=== PATIENT | female | born 1935 | race Caucasian/White ===

== ENCOUNTER 2022-08-03 01:31 | Emergency (ER) | payer MEDICARE, MEDICAID, SELFPAY ==
[2022-08-03] VITALS (16 sets, daily range): BP systolic 100–150; BP diastolic 65–119; PULSE 119–126; TEMP 35.5; O2SAT 73–95
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
--- NOTE | 2022-08-03 01:35 | CRLHL7_ITS ---
For Patients: As a result of the Century Cures Act, medical imaging exams and procedure reports are released immediately into your electronic medical record. You may view this report before your referring provider. If you have questions, please contact your health care provider. Indication: Dyspnea Technique: Chest 1 view Comparison: July 06, 2022 Findings/Impression: Cardiomegaly. Increased patchy opacities lungs may reflect edema or infection. No pneumothorax or effusion. Status post reverse right shoulder arthroplasty. Dictated by Alisa Sloan MD @ 08/03/2022 2:41:13 AM (Electronically Signed)
[2022-08-03] MEDS: FUROSEMIDE 10 MG/ML inj 40 MG IVP (01:51)
[2022-08-03] MEDS: METHYLPREDNISOLONE SOD SUCC 40 MG/ML IVP (01:57)
[2022-08-03 01:58] LABS: ABG PCO2 28 mmHG (35-45); Base Excess ABG -20.7 mmol/L (-3.0-3.0); HCO3 ABG 8 mmol/L (21-28); Oxygen Saturation ABG 94 % (92-100); TCO2 ABG 8 mmol/l (21-30)
[2022-08-03 02:02] LABS: Basophils Percent Auto 0.4 % (0.0-3.0); Eosinophils Percent Auto 2.8 % (0.0-7.0); Hematocrit 35.2 % (33.0-51.0); Hemoglobin* 10.5 gm/dL (12.0-16.0); Immature Granulocytes Pct Auto 2.2 %; Mean Corpuscular HGB Conc 30 gm/dL (32-36); Mean Corpuscular Hemoglobin 27 pg (26-34); Mean Corpuscular Volume 91 fL (80-100); Monocytes Percent Auto 12.5 % (0.0-11.0); Neutrophils Percent Auto 39.1 % (42.0-72.0); Platelet Count* 552 K/uL (140-440); RDW Coefficient of Variation % 22.6 % (11.5-15.5); Red Blood Count 3.88 m/uL (4.00-5.20); White Blood Count* 14.17 K/uL (4.50-11.00)
[2022-08-03 02:05] LABS: Slide Review Reflex Yes
[2022-08-03 02:13] LABS: Slide Review Acceptable Review (Acceptable)
[2022-08-03 02:15] LABS: pH ABG 7.07 (7.35-7.45)
[2022-08-03 02:16] LABS: Albumin* 3.7 g/dL (3.3-5.0); Chloride* 99 mmol/L (96-114); Sodium* 133 mmol/L (135-149)
[2022-08-03 02:16] LABS: Carboxyhemoglobin* 1.5 % (0.0-5.0); Lactate* 11.7 mmol/L (0.5-1.9)
[2022-08-03 02:18] LABS: Estimated Glomerular Filt Rate 55 ml/min
[2022-08-03 02:19] LABS: Alanine Aminotransferase* 29 U/L (4-35); Alkaline Phosphatase* 56 U/L (40-150); Aspartate Amino Transferase* 128 U/L (12-35); Bilirubin Total* 0.4 mg/dL (0.1-1.5); Blood Urea Nitrogen* 10 mg/dL (7-30); Calcium* 8.9 mg/dL (8.4-10.6); Carbon Dioxide* 11 mmol/L (20-32); Glucose* 349 mg/dL (60-115); Total Protein* 6.7 g/dL (6.0-8.3)
[2022-08-03 02:20] LABS: Magnesium* 1.5 mg/dL (1.5-2.6)
[2022-08-03 02:33] LABS: NT Pro B Type NatriureticPept* 8130 pg/mL
--- NOTE | 2022-08-03 02:34 | PC.NURSE ---
3 RT staff called for MD for RT support.
[2022-08-03] MEDS: cefTRIAXone 1 GM in 0.9 % SODIUM CHLORIDE Mini-bag 100 ML IVPB (02:36)
[2022-08-03] MEDS: OXYCODONE 5 MG TABLET PO (02:37)
[2022-08-03] MEDS: AZITHROMYCIN 500 MG in 0.9 % SODIUM CHLORIDE 250 ml 250 ML 255 MG IVPB (03:05)
[2022-08-03] MEDS: ALBUTEROL SULFATE 2.5 MG/3 ML VIAL.NEB NEB (03:09)
--- NOTE | 2022-08-03 03:15 | ED.NURSE ---
patient extremely uncomfortable. Unable to get into a comfortable position. Patient trying to climb out of bed. MD case notified.
[2022-08-03 03:23] LABS: Troponin, Point-of-Care* 0.07 ng/ml (0.01-0.04)
--- NOTE | 2022-08-03 03:37 | ED.NURSE ---
at 0325 patient started to have decreased respiratory drive. Patients respirations went from 55 breaths/minute to 18 breaths/min. Patients HR also went from 123 to 40. MD Jacobson notified. Family called to come in by marine oil terminal superintendent care staff.
--- NOTE | 2022-08-03 04:45 | ED.NURSE ---
Patients son Isreal and his arrived at bedside at 0445.
--- NOTE | 2022-08-03 05:00 | ED.NURSE ---
Patients son Isreal Elkins. His phone number is [phone]. Jennifer address is [address] [place], [place] [id number]. He states that he would like his mother to go to [facility] in [place].
--- NOTE | 2022-08-03 05:39 | ED.NURSE ---
Patients belongings: -Yancey in color letitia bethea shirt -Jewlery: *2 rings silver in color with stones. one ring silver in color that has a flower on top. *2 necklaces silver in color (one was a pendent with a quote about being a mother, other was a cross necklace) these items were given to daughter in law and son Isreal at [phone]
--- NOTE | 2022-08-03 05:52 | ED.NURSE ---
[facility] Contacted at 0523. They are contacting the coordinator and will call back with updated time for pickup.
== END 2022-08-03 07:44 | disposition expired ==
PROVIDERS: Emergency Provider Family Medicine; PCP Family Medicine
DX: I50.9 Heart failure, unspecified (principal)
CPT/HCPCS: 36415; 36600; 71045; 80053; 81001; 82803; 83605; 83735; 83880; 84484; 85025; 87040; 93005; 94640; 96365; 96375; 99285; 99291; 99292; A9270; J0456; J0696; J1940; J2920; J7050

== ENCOUNTER → 2022-08-03 03:32 | Inpatient (IN) | payer MEDICAID, MEDICARE, SELFPAY ==
[2021-08-16] MEDS: OMEPRAZOLE 20 MG CAPSULE DR PO (06:44)
[2021-08-16] MEDS: ALBUTEROL INHALER 2 PUFF IH ×4 (07:14→20:08)
[2021-08-16] MEDS: ACETAMINOPHEN 500 MG TABLET 1000 MG PO ×3 (07:14→20:08)
[2021-08-16] MEDS: ASPIRIN 81 MG TABLET EC PO (07:14)
[2021-08-16] MEDS: VENLAFAXINE ER 75 MG CAPSULE PO (07:15)
[2021-08-16] MEDS: CARBOXYMETHYLCELLULOSE (REFRESH PLUS) TEARS 1 DROP EYE-BOTH ×4 (07:16→20:09)
[2021-08-16] MEDS: METOPROLOL SUCCINATE (XL) 50 MG TAB PO (07:16)
[2021-08-16] MEDS: OCUVITE TABLET 2 TAB PO ×2 (07:16→16:19)
[2021-08-16] MEDS: FOLIC ACID 800 MCG 1 EACH PO (07:16)
[2021-08-16] MEDS: VENLAFAXINE HCL ER 37.5 MG CAPSULE PO (07:16)
[2021-08-16] MEDS: FUROSEMIDE 40 MG TABLET 60 MG PO (08:42)
[2021-08-16] MEDS: METFORMIN 1,000 MG TABLET 1000 MG PO ×2 (08:42→17:24)
[2021-08-16] MEDS: POTASSIUM CHLORIDE 10 MEQ CAPSULE ER PO (08:42)
--- NOTE | 2021-08-16 10:59 | NUTR.NU ---
Nutrition Follow-Up: RDN monitoring resident at high-risk due to past weight loss. Current weight 99.7 lbs; Weight history 08/11/21 100 lbs; 08/04/21 100 lbs; 07/28/21 103 lbs; 07/21/21 99.7 lbs; 07/14/21 102 lbs; 07/07/21 103 lbs. Resident's weight has been stable within the past 30 days - no significant change noted. Current BMI is normal at 19.5 kg/m2. Current diet is regular per MD order. No current meal intakes recorded - RDN unable to assess. Resident is receiving Diabetic friendly snacks TID (1000, 1500, 1900 which provides ~450-600 kcals and ~18-24 grams protein daily. Snack record intakes are incomplete, however the snack intakes are mainly 100% that are recorded. With stable weight, RDN will no longer follow resident at high-risk. Will continue to monitor weight monthly and follow-up prn.
[2021-08-16] MEDS: NICOTINE 4 MG GUM BUCCAL (17:27)
[2021-08-16 18:22] VITALS: TEMP 36.2; O2SAT 92
[2021-08-16] MEDS: ATORVASTATIN 10 MG TABLET PO (20:08)
[2021-08-16] MEDS: SENNOSIDES 1 TAB TABLET PO (20:09)
[2021-08-16] MEDS: TRAZODONE HCL 50 MG TABLET PO (20:09)
[2021-08-17] MEDS: ACETAMINOPHEN 500 MG TABLET 1000 MG PO ×3 (07:03→20:14)
[2021-08-17] MEDS: ALBUTEROL INHALER 2 PUFF IH ×4 (07:03→20:14)
[2021-08-17] MEDS: OMEPRAZOLE 20 MG CAPSULE DR PO (07:03)
[2021-08-17] MEDS: ASPIRIN 81 MG TABLET EC PO (07:03)
[2021-08-17] MEDS: FOLIC ACID 800 MCG 1 EACH PO (07:04)
[2021-08-17] MEDS: VENLAFAXINE HCL ER 37.5 MG CAPSULE PO (07:04)
[2021-08-17] MEDS: METOPROLOL SUCCINATE (XL) 50 MG TAB PO (07:04)
[2021-08-17] MEDS: VENLAFAXINE ER 75 MG CAPSULE PO (07:04)
[2021-08-17] MEDS: NICOTINE 4 MG GUM BUCCAL ×2 (07:05→17:09)
[2021-08-17] MEDS: CARBOXYMETHYLCELLULOSE (REFRESH PLUS) TEARS 1 DROP EYE-BOTH ×4 (07:05→20:14)
[2021-08-17] MEDS: OCUVITE TABLET 2 TAB PO ×2 (07:05→16:30)
[2021-08-17] MEDS: METFORMIN 1,000 MG TABLET 1000 MG PO ×2 (08:26→17:09)
[2021-08-17] MEDS: POTASSIUM CHLORIDE 10 MEQ CAPSULE ER PO (08:26)
[2021-08-17] MEDS: FUROSEMIDE 40 MG TABLET 60 MG PO (08:26)
[2021-08-17 13:20] VITALS: BP 143/64; PULSE 88; RESP 20; TEMP 36.4
[2021-08-17 18:35] VITALS: TEMP 36.4; O2SAT 95
[2021-08-17] MEDS: ATORVASTATIN 10 MG TABLET PO (20:14)
[2021-08-17] MEDS: TRAZODONE HCL 50 MG TABLET PO (20:15)
[2021-08-17] MEDS: SENNOSIDES 1 TAB TABLET PO (20:15)
[2021-08-18] MEDS: OMEPRAZOLE 20 MG CAPSULE DR PO (07:10)
[2021-08-18] MEDS: ALBUTEROL INHALER 2 PUFF IH ×4 (07:10→19:37)
[2021-08-18] MEDS: ACETAMINOPHEN 500 MG TABLET 1000 MG PO ×3 (07:10→19:37)
[2021-08-18] MEDS: ASPIRIN 81 MG TABLET EC PO (07:10)
[2021-08-18] MEDS: VENLAFAXINE ER 75 MG CAPSULE PO (07:11)
[2021-08-18] MEDS: VENLAFAXINE HCL ER 37.5 MG CAPSULE PO (07:11)
[2021-08-18] MEDS: METOPROLOL SUCCINATE (XL) 50 MG TAB PO (07:11)
[2021-08-18] MEDS: FOLIC ACID 800 MCG 1 EACH PO (07:12)
[2021-08-18] MEDS: CARBOXYMETHYLCELLULOSE (REFRESH PLUS) TEARS 1 DROP EYE-BOTH ×4 (07:12→19:36)
[2021-08-18] MEDS: OCUVITE TABLET 2 TAB PO ×2 (07:12→16:38)
[2021-08-18] MEDS: FUROSEMIDE 40 MG TABLET 60 MG PO (08:40)
[2021-08-18] MEDS: METFORMIN 1,000 MG TABLET 1000 MG PO ×2 (08:40→17:13)
[2021-08-18] MEDS: POTASSIUM CHLORIDE 10 MEQ CAPSULE ER PO (08:40)
[2021-08-18] MEDS: NICOTINE 4 MG GUM BUCCAL ×2 (10:49→17:14)
--- NOTE | 2021-08-18 11:49 | PC.PHA ---
Pharmacy Note ~ Patient continues on polypharmacy. Enbrel injections have been working for patient. Hyperglycemia is most problematic in past month, but patient now managing with metformin and glucerna. Pain medications include scheduled acetaminophen 1000 mg tid and prn oxycodone. Use of prn oxycodone up by 5 doses in July compared to June.
[2021-08-18] MEDS: ATORVASTATIN 10 MG TABLET PO (19:37)
[2021-08-18] MEDS: SENNOSIDES 1 TAB TABLET PO (19:37)
[2021-08-18] MEDS: TRAZODONE HCL 50 MG TABLET PO (19:38)
[2021-08-18 20:54] VITALS: TEMP 36.3; O2SAT 96
[2021-08-19] MEDS: OMEPRAZOLE 20 MG CAPSULE DR PO (07:00)
[2021-08-19] MEDS: ASPIRIN 81 MG TABLET EC PO (07:10)
[2021-08-19] MEDS: ALBUTEROL INHALER 2 PUFF IH ×4 (07:10→19:36)
[2021-08-19] MEDS: ACETAMINOPHEN 500 MG TABLET 1000 MG PO ×3 (07:10→19:36)
[2021-08-19] MEDS: VENLAFAXINE ER 75 MG CAPSULE PO (07:10)
[2021-08-19] MEDS: VENLAFAXINE HCL ER 37.5 MG CAPSULE PO (07:10)
[2021-08-19] MEDS: METOPROLOL SUCCINATE (XL) 50 MG TAB PO (07:11)
[2021-08-19] MEDS: CARBOXYMETHYLCELLULOSE (REFRESH PLUS) TEARS 1 DROP EYE-BOTH ×4 (07:11→19:36)
[2021-08-19] MEDS: OCUVITE TABLET 2 TAB PO ×2 (07:11→16:28)
[2021-08-19] MEDS: POTASSIUM CHLORIDE 10 MEQ CAPSULE ER PO (08:39)
[2021-08-19] MEDS: FUROSEMIDE 40 MG TABLET 60 MG PO (08:39)
[2021-08-19] MEDS: METFORMIN 1,000 MG TABLET 1000 MG PO ×2 (08:39→17:28)
[2021-08-19] MEDS: NICOTINE 4 MG GUM BUCCAL ×2 (09:20→17:28)
[2021-08-19 17:15] VITALS: TEMP 36.3; O2SAT 93
[2021-08-19] MEDS: SENNOSIDES 1 TAB TABLET PO (19:36)
[2021-08-19] MEDS: ATORVASTATIN 10 MG TABLET PO (19:36)
[2021-08-19] MEDS: TRAZODONE HCL 50 MG TABLET PO (19:37)
[2021-08-20] MEDS: OMEPRAZOLE 20 MG CAPSULE DR PO (06:44)
[2021-08-20] MEDS: ALBUTEROL INHALER 2 PUFF IH ×2 (08:30→12:08)
[2021-08-20] MEDS: METFORMIN 1,000 MG TABLET 1000 MG PO (08:30)
[2021-08-20] MEDS: VENLAFAXINE HCL ER 37.5 MG CAPSULE PO (08:30)
[2021-08-20] MEDS: VENLAFAXINE ER 75 MG CAPSULE PO (08:30)
[2021-08-20] MEDS: ASPIRIN 81 MG TABLET EC PO (08:30)
[2021-08-20] MEDS: METOPROLOL SUCCINATE (XL) 50 MG TAB PO (08:30)
[2021-08-20] MEDS: FUROSEMIDE 40 MG TABLET 60 MG PO (08:30)
[2021-08-20] MEDS: ACETAMINOPHEN 500 MG TABLET 1000 MG PO ×2 (08:30→12:06)
[2021-08-20] MEDS: CARBOXYMETHYLCELLULOSE (REFRESH PLUS) TEARS 1 DROP EYE-BOTH ×2 (08:31→12:08)
[2021-08-20] MEDS: POTASSIUM CHLORIDE 10 MEQ CAPSULE ER PO (08:31)
[2021-08-20] MEDS: FOLIC ACID 800 MCG 1 EACH PO (08:31)
[2021-08-20] MEDS: OCUVITE TABLET 2 TAB PO (08:31)
[2021-08-20] MEDS: OXYCODONE 5 MG TABLET PO ×2 (09:57→13:48)
--- NOTE | 2021-08-20 12:37 | PC.NURSE ---
Out of Facility: Resident left [facility] approximately 1109 for two days family visit. Son picked her up via family transport. All scheduled medications in addition to PRN Oxycodone 10mg were sent with her. Resident is returning on 08/22/21, as indicated, without specific time.
--- NOTE | 2021-08-22 12:32 | PC.NURSE ---
Return: Resident back from TEO @ 1200 with son, medications returned. BS-221 checked as requested.
[2021-08-22] MEDS: ALBUTEROL INHALER 2 PUFF IH ×2 (16:17→19:08)
[2021-08-22] MEDS: OCUVITE TABLET 2 TAB PO (16:18)
[2021-08-22] MEDS: CARBOXYMETHYLCELLULOSE (REFRESH PLUS) TEARS 1 DROP EYE-BOTH ×2 (16:18→19:08)
[2021-08-22 16:51] VITALS: TEMP 36.6; O2SAT 95
[2021-08-22] MEDS: METFORMIN 1,000 MG TABLET 1000 MG PO (17:07)
[2021-08-22] MEDS: NICOTINE 4 MG GUM BUCCAL (17:08)
[2021-08-22] MEDS: ACETAMINOPHEN 500 MG TABLET 1000 MG PO (19:08)
[2021-08-22] MEDS: OXYCODONE 5 MG TABLET PO (19:08)
[2021-08-22] MEDS: ATORVASTATIN 10 MG TABLET PO (19:08)
[2021-08-22] MEDS: TRAZODONE HCL 50 MG TABLET PO (19:08)
[2021-08-22] MEDS: SENNOSIDES 1 TAB TABLET PO (19:08)
[2021-08-23] MEDS: VENLAFAXINE HCL ER 37.5 MG CAPSULE PO (07:13)
[2021-08-23] MEDS: ALBUTEROL INHALER 2 PUFF IH ×4 (07:13→19:42)
[2021-08-23] MEDS: ASPIRIN 81 MG TABLET EC PO (07:13)
[2021-08-23] MEDS: VENLAFAXINE ER 75 MG CAPSULE PO (07:13)
[2021-08-23] MEDS: OMEPRAZOLE 20 MG CAPSULE DR PO (07:13)
[2021-08-23] MEDS: ACETAMINOPHEN 500 MG TABLET 1000 MG PO ×3 (07:13→19:42)
[2021-08-23] MEDS: METOPROLOL SUCCINATE (XL) 50 MG TAB PO (07:14)
[2021-08-23] MEDS: FOLIC ACID 800 MCG 1 EACH PO (07:14)
[2021-08-23] MEDS: CARBOXYMETHYLCELLULOSE (REFRESH PLUS) TEARS 1 DROP EYE-BOTH ×4 (07:14→19:42)
[2021-08-23] MEDS: OCUVITE TABLET 2 TAB PO ×2 (07:14→16:11)
[2021-08-23] MEDS: METFORMIN 1,000 MG TABLET 1000 MG PO ×2 (08:36→17:16)
[2021-08-23] MEDS: POTASSIUM CHLORIDE 10 MEQ CAPSULE ER PO (08:36)
[2021-08-23] MEDS: FUROSEMIDE 40 MG TABLET 60 MG PO (08:36)
[2021-08-23] MEDS: NICOTINE 4 MG GUM BUCCAL (17:16)
[2021-08-23] MEDS: ATORVASTATIN 10 MG TABLET PO (19:42)
[2021-08-23] MEDS: SENNOSIDES 1 TAB TABLET PO (19:43)
[2021-08-23] MEDS: TRAZODONE HCL 50 MG TABLET PO (19:43)
[2021-08-23 21:25] VITALS: TEMP 36.3; O2SAT 96
--- NOTE | 2021-08-24 02:01 | PC.NURSE ---
Addendum entered by Lacey Sanches RN 08/24/21 02:47: Week #1: Care Plan problems #1-19 and temporary care plan reviewed. No changes made to care plan and nothing added at this time. Vital signs reviewed - values are within residents normal ranges. Pain is managed with schedule Acetaminophen 1000 mg TID, and Oxycodone 5 mg Q6H. No pain reported at this time. Resident has been sleeping through the night. Original Note: Week #1: Care Plan problems #1-19 and temporary care plan reviewed. No changes to care plan at this time. Vital signs reviewed - they her within normal values. Pain is managed with schedule Acetaminophen 1000 mg TID, PRN Oxycodone Q6H. No pain reported at this time. Resident mostly sleeps?through the night.
--- NOTE | 2021-08-24 02:54 | PC.NURSE ---
Week #1: Care Plan problems #1-19 and temporary care plan reviewed. No changes made to care plan and nothing added at this time. Vital signs reviewed - values are within residents normal ranges. Pain is managed with schedule Acetaminophen 1000 mg TID, and Oxycodone 5 mg Q6H. No pain reported at this time. Resident has been sleeping through the night.
[2021-08-24] MEDS: METOPROLOL SUCCINATE (XL) 50 MG TAB PO (07:05)
[2021-08-24] MEDS: VENLAFAXINE ER 75 MG CAPSULE PO (07:05)
[2021-08-24] MEDS: VENLAFAXINE HCL ER 37.5 MG CAPSULE PO (07:05)
[2021-08-24] MEDS: ACETAMINOPHEN 500 MG TABLET 1000 MG PO ×3 (07:05→19:42)
[2021-08-24] MEDS: OMEPRAZOLE 20 MG CAPSULE DR PO (07:05)
[2021-08-24] MEDS: ALBUTEROL INHALER 2 PUFF IH ×4 (07:05→19:42)
[2021-08-24] MEDS: ASPIRIN 81 MG TABLET EC PO (07:05)
[2021-08-24] MEDS: CARBOXYMETHYLCELLULOSE (REFRESH PLUS) TEARS 1 DROP EYE-BOTH ×4 (07:06→19:42)
[2021-08-24] MEDS: OCUVITE TABLET 2 TAB PO ×2 (07:06→16:05)
[2021-08-24] MEDS: FOLIC ACID 800 MCG 1 EACH PO (07:06)
[2021-08-24] MEDS: POTASSIUM CHLORIDE 10 MEQ CAPSULE ER PO (08:37)
[2021-08-24] MEDS: FUROSEMIDE 40 MG TABLET 60 MG PO (08:37)
[2021-08-24] MEDS: METFORMIN 1,000 MG TABLET 1000 MG PO ×2 (08:37→17:20)
[2021-08-24] MEDS: NICOTINE 4 MG GUM BUCCAL (13:02)
[2021-08-24 18:31] VITALS: BP 130/62; PULSE 103; RESP 18; TEMP 36.2; O2SAT 96
[2021-08-24 18:33] VITALS: TEMP 36.2; O2SAT 96
[2021-08-24] MEDS: TRAZODONE HCL 50 MG TABLET PO (19:42)
[2021-08-24] MEDS: SENNOSIDES 1 TAB TABLET PO (19:42)
[2021-08-24] MEDS: ATORVASTATIN 10 MG TABLET PO (19:42)
--- NOTE | 2021-08-24 22:55 | PC.NURSE ---
WEEK #1-Care plan problems -19 reviewed, no changes needed and also to Temporary Care plan. VSWNL, denied pain during this shift. Pleasant and in a good mood and no observed mood changes. Able to change her clothes and needs minimal assistance from staffs and able to verbalize her needs/wants. No changes in appetite, or eating patterns, staffs need to set-up table and foods during mealtime, independent in feeding self.
[2021-08-25] MEDS: VENLAFAXINE ER 75 MG CAPSULE PO (07:05)
[2021-08-25] MEDS: ASPIRIN 81 MG TABLET EC PO (07:05)
[2021-08-25] MEDS: ACETAMINOPHEN 500 MG TABLET 1000 MG PO ×3 (07:05→19:39)
[2021-08-25] MEDS: ALBUTEROL INHALER 2 PUFF IH ×4 (07:05→19:38)
[2021-08-25] MEDS: VENLAFAXINE HCL ER 37.5 MG CAPSULE PO (07:05)
[2021-08-25] MEDS: OMEPRAZOLE 20 MG CAPSULE DR PO (07:05)
[2021-08-25] MEDS: FOLIC ACID 800 MCG 1 EACH PO (07:06)
[2021-08-25] MEDS: OCUVITE TABLET 2 TAB PO ×2 (07:06→16:04)
[2021-08-25] MEDS: CARBOXYMETHYLCELLULOSE (REFRESH PLUS) TEARS 1 DROP EYE-BOTH ×4 (07:06→19:39)
[2021-08-25] MEDS: METOPROLOL SUCCINATE (XL) 50 MG TAB PO (07:06)
[2021-08-25] MEDS: NICOTINE 4 MG GUM BUCCAL ×2 (07:12→17:06)
[2021-08-25] MEDS: POTASSIUM CHLORIDE 10 MEQ CAPSULE ER PO (08:44)
[2021-08-25] MEDS: FUROSEMIDE 40 MG TABLET 60 MG PO (08:44)
[2021-08-25] MEDS: METFORMIN 1,000 MG TABLET 1000 MG PO ×2 (08:44→17:05)
[2021-08-25] MEDS: TRAZODONE HCL 50 MG TABLET PO (19:39)
[2021-08-25] MEDS: SENNOSIDES 1 TAB TABLET PO (19:39)
[2021-08-25] MEDS: ATORVASTATIN 10 MG TABLET PO (19:39)
[2021-08-25 21:09] VITALS: TEMP 36.3; O2SAT 95
[2021-08-26] MEDS: OMEPRAZOLE 20 MG CAPSULE DR PO (06:55)
[2021-08-26] MEDS: NICOTINE 4 MG GUM BUCCAL ×2 (07:01→15:51)
[2021-08-26] MEDS: ACETAMINOPHEN 500 MG TABLET 1000 MG PO ×3 (07:02→20:07)
[2021-08-26] MEDS: ALBUTEROL INHALER 2 PUFF IH ×4 (07:02→20:07)
[2021-08-26] MEDS: ASPIRIN 81 MG TABLET EC PO (07:02)
[2021-08-26] MEDS: VENLAFAXINE ER 75 MG CAPSULE PO (07:02)
[2021-08-26] MEDS: OCUVITE TABLET 2 TAB PO ×2 (07:03→15:18)
[2021-08-26] MEDS: CARBOXYMETHYLCELLULOSE (REFRESH PLUS) TEARS 1 DROP EYE-BOTH ×4 (07:03→20:07)
[2021-08-26] MEDS: VENLAFAXINE HCL ER 37.5 MG CAPSULE PO (07:03)
[2021-08-26] MEDS: METOPROLOL SUCCINATE (XL) 50 MG TAB PO (07:03)
[2021-08-26] MEDS: METFORMIN 1,000 MG TABLET 1000 MG PO ×2 (08:55→17:33)
[2021-08-26] MEDS: FUROSEMIDE 40 MG TABLET 60 MG PO (08:55)
[2021-08-26] MEDS: POTASSIUM CHLORIDE 10 MEQ CAPSULE ER PO (08:55)
--- NOTE | 2021-08-26 10:12 | PC.NURSE ---
Podiatry: Resident seen by In House Wet Machine Operator on 08/25/21.
[2021-08-26] MEDS: OXYCODONE 5 MG TABLET PO (15:14)
[2021-08-26] MEDS: ATORVASTATIN 10 MG TABLET PO (20:07)
[2021-08-26] MEDS: SENNOSIDES 1 TAB TABLET PO (20:07)
[2021-08-26] MEDS: TRAZODONE HCL 50 MG TABLET PO (20:07)
[2021-08-26 21:16] VITALS: TEMP 36.6; O2SAT 96
[2021-08-27] MEDS: OMEPRAZOLE 20 MG CAPSULE DR PO (06:37)
[2021-08-27] MEDS: VENLAFAXINE ER 75 MG CAPSULE PO (08:44)
[2021-08-27] MEDS: ACETAMINOPHEN 500 MG TABLET 1000 MG PO ×3 (08:44→19:16)
[2021-08-27] MEDS: ALBUTEROL INHALER 2 PUFF IH ×4 (08:44→19:16)
[2021-08-27] MEDS: FUROSEMIDE 40 MG TABLET 60 MG PO (08:44)
[2021-08-27] MEDS: ASPIRIN 81 MG TABLET EC PO (08:44)
[2021-08-27] MEDS: VENLAFAXINE HCL ER 37.5 MG CAPSULE PO (08:44)
[2021-08-27] MEDS: METOPROLOL SUCCINATE (XL) 50 MG TAB PO (08:45)
[2021-08-27] MEDS: METFORMIN 1,000 MG TABLET 1000 MG PO ×2 (08:45→17:21)
[2021-08-27] MEDS: OCUVITE TABLET 2 TAB PO ×2 (08:45→15:54)
[2021-08-27] MEDS: CARBOXYMETHYLCELLULOSE (REFRESH PLUS) TEARS 1 DROP EYE-BOTH ×4 (08:45→19:16)
[2021-08-27] MEDS: POTASSIUM CHLORIDE 10 MEQ CAPSULE ER PO (08:45)
[2021-08-27] MEDS: NICOTINE 4 MG GUM BUCCAL ×2 (08:45→20:11)
[2021-08-27] MEDS: FOLIC ACID 800 MCG 1 EACH PO (08:45)
[2021-08-27 16:00] VITALS: TEMP 36.6; O2SAT 96
[2021-08-27] MEDS: ATORVASTATIN 10 MG TABLET PO (19:16)
[2021-08-27] MEDS: SENNOSIDES 1 TAB TABLET PO (19:16)
[2021-08-27] MEDS: TRAZODONE HCL 50 MG TABLET PO (19:16)
[2021-08-28] MEDS: OMEPRAZOLE 20 MG CAPSULE DR PO (06:42)
[2021-08-28] MEDS: NICOTINE 4 MG GUM BUCCAL ×2 (06:45→17:13)
[2021-08-28] MEDS: METFORMIN 1,000 MG TABLET 1000 MG PO ×2 (08:37→17:13)
[2021-08-28] MEDS: FUROSEMIDE 40 MG TABLET 60 MG PO (08:37)
[2021-08-28] MEDS: POTASSIUM CHLORIDE 10 MEQ CAPSULE ER PO (08:37)
[2021-08-28] MEDS: METOPROLOL SUCCINATE (XL) 50 MG TAB PO (08:37)
[2021-08-28] MEDS: ALBUTEROL INHALER 2 PUFF IH ×4 (08:37→20:03)
[2021-08-28] MEDS: ACETAMINOPHEN 500 MG TABLET 1000 MG PO ×3 (08:37→19:58)
[2021-08-28] MEDS: FOLIC ACID 800 MCG 1 EACH PO (08:37)
[2021-08-28] MEDS: VENLAFAXINE HCL ER 37.5 MG CAPSULE PO (08:37)
[2021-08-28] MEDS: ASPIRIN 81 MG TABLET EC PO (08:37)
[2021-08-28] MEDS: VENLAFAXINE ER 75 MG CAPSULE PO (08:37)
[2021-08-28] MEDS: OCUVITE TABLET 2 TAB PO ×2 (08:37→16:45)
[2021-08-28] MEDS: CARBOXYMETHYLCELLULOSE (REFRESH PLUS) TEARS 1 DROP EYE-BOTH ×4 (08:38→20:03)
[2021-08-28] MEDS: OXYCODONE 5 MG TABLET PO (10:48)
[2021-08-28 17:24] VITALS: TEMP 36.3; O2SAT 97
[2021-08-28] MEDS: TRAZODONE HCL 50 MG TABLET PO (20:03)
[2021-08-28] MEDS: ATORVASTATIN 10 MG TABLET PO (20:03)
[2021-08-28] MEDS: SENNOSIDES 1 TAB TABLET PO (20:03)
[2021-08-29] MEDS: ACETAMINOPHEN 500 MG TABLET 1000 MG PO ×3 (07:19→19:10)
[2021-08-29] MEDS: ALBUTEROL INHALER 2 PUFF IH ×4 (07:19→19:10)
[2021-08-29] MEDS: OMEPRAZOLE 20 MG CAPSULE DR PO (07:19)
[2021-08-29] MEDS: NICOTINE 4 MG GUM BUCCAL ×2 (07:20→17:39)
[2021-08-29] MEDS: VENLAFAXINE ER 75 MG CAPSULE PO (07:20)
[2021-08-29] MEDS: ASPIRIN 81 MG TABLET EC PO (07:20)
[2021-08-29] MEDS: METFORMIN 1,000 MG TABLET 1000 MG PO ×2 (07:21→17:39)
[2021-08-29] MEDS: FUROSEMIDE 40 MG TABLET 60 MG PO (07:21)
[2021-08-29] MEDS: VENLAFAXINE HCL ER 37.5 MG CAPSULE PO (07:21)
[2021-08-29] MEDS: FOLIC ACID 800 MCG 1 EACH PO (07:22)
[2021-08-29] MEDS: METOPROLOL SUCCINATE (XL) 50 MG TAB PO (07:22)
[2021-08-29] MEDS: CARBOXYMETHYLCELLULOSE (REFRESH PLUS) TEARS 1 DROP EYE-BOTH ×4 (07:23→19:10)
[2021-08-29] MEDS: OCUVITE TABLET 2 TAB PO ×2 (07:23→15:47)
[2021-08-29] MEDS: POTASSIUM CHLORIDE 10 MEQ CAPSULE ER PO (07:23)
[2021-08-29 16:00] VITALS: TEMP 36.6; O2SAT 95
[2021-08-29] MEDS: SENNOSIDES 1 TAB TABLET PO (19:10)
[2021-08-29] MEDS: ATORVASTATIN 10 MG TABLET PO (19:10)
[2021-08-29] MEDS: TRAZODONE HCL 50 MG TABLET PO (19:10)
[2021-08-30] MEDS: ACETAMINOPHEN 500 MG TABLET 1000 MG PO ×3 (07:01→19:26)
[2021-08-30] MEDS: METOPROLOL SUCCINATE (XL) 50 MG TAB PO (07:01)
[2021-08-30] MEDS: OMEPRAZOLE 20 MG CAPSULE DR PO (07:01)
[2021-08-30] MEDS: ASPIRIN 81 MG TABLET EC PO (07:01)
[2021-08-30] MEDS: VENLAFAXINE ER 75 MG CAPSULE PO (07:01)
[2021-08-30] MEDS: VENLAFAXINE HCL ER 37.5 MG CAPSULE PO (07:01)
[2021-08-30] MEDS: ALBUTEROL INHALER 2 PUFF IH ×4 (07:01→19:26)
[2021-08-30] MEDS: OCUVITE TABLET 2 TAB PO ×2 (07:01→15:47)
[2021-08-30] MEDS: FOLIC ACID 800 MCG 1 EACH PO (07:01)
[2021-08-30] MEDS: CARBOXYMETHYLCELLULOSE (REFRESH PLUS) TEARS 1 DROP EYE-BOTH ×4 (07:01→19:26)
[2021-08-30] MEDS: NICOTINE 4 MG GUM BUCCAL ×2 (07:02→17:01)
[2021-08-30] MEDS: METFORMIN 1,000 MG TABLET 1000 MG PO ×2 (08:34→17:01)
[2021-08-30] MEDS: POTASSIUM CHLORIDE 10 MEQ CAPSULE ER PO (08:34)
[2021-08-30] MEDS: FUROSEMIDE 40 MG TABLET 60 MG PO (08:34)
--- NOTE | 2021-08-30 11:00 | PC.SPIRITC ---
Late Entry-Chaplain Bob, provided visit for support on 08/28/2021.
[2021-08-30 11:09] VITALS: TEMP 36.9; O2SAT 95
--- NOTE | 2021-08-30 11:12 | PC.SPIRITC ---
provided visit for support.
--- NOTE | 2021-08-30 14:03 | NUTR.NU ---
Nutrition Update: Patient triggered for significant weight loss within 90 and 180 days. Current weight 99 lbs; Weight history 03/03/21 110 lbs (180 days, -11lbs, 10%); 05/26/21 107 lbs (90 days, -8lbs, 7.5%); 07/28/21 103 lbs (-4lbs, 3.8%, not significant). Resident's weight has been stable within the past 30 days, however significant weight loss noted at 90 and 180 days. Current BMI is normal at 19.3 kg/m2. Current diet is regular per MD order. No current meal intakes recorded - RDN unable to assess. Resident is receiving Diabetic friendly snacks TID (1000, 1500, 1900) which provides ~450-600 kcals and ~18-24 grams protein daily to help meet estimated energy needs. Recent snack intake records are mainly 100%. With stable weight at 30 days, no additional nutrition interventions at this time. RDN will continue to monitor weight monthly and follow-up prn.
[2021-08-30 17:15] VITALS: TEMP 36.3; O2SAT 94
[2021-08-30] MEDS: TRAZODONE HCL 50 MG TABLET PO (19:26)
[2021-08-30] MEDS: ATORVASTATIN 10 MG TABLET PO (19:26)
[2021-08-30] MEDS: SENNOSIDES 1 TAB TABLET PO (19:26)
[2021-08-30 23:00] VITALS: TEMP 36.5; O2SAT 92
--- NOTE | 2021-08-31 02:08 | PC.NURSE ---
Week #2---care plan problems #20-29 reviewed. No changes made. Nothing added to temporary care plan. Is independent with bed mobility, transfers, and ambulation. Uses top siderails for assist and a walker when she's out of her room. Falls---no falls this past month. Is a low fall risk according to assessment done on 07/07/21.
--- NOTE | 2021-08-31 08:07 | PC.NURSE ---
Week #2: Care plan problems - and temporary care plan reviewed. No changes made. Nothing added to temporary care plan. Resident is independent with ambulation, transfers, bed mobility/repositioning. Ambulates with a 4 wheeled walker. Fall: No falls this past month. Remains a low fall risk according to assessment done on 07/07/21.
--- NOTE | 2021-08-31 08:18 | PC.NURSE ---
TEO: Resident is out for personal outing with daughter. All appropriate meds, PRN Oxycodone, glucometer sent. Shown how to do accu checks.
[2021-08-31] MEDS: ACETAMINOPHEN 500 MG TABLET 1000 MG PO (08:55)
[2021-08-31] MEDS: VENLAFAXINE ER 75 MG CAPSULE PO (08:55)
[2021-08-31] MEDS: ASPIRIN 81 MG TABLET EC PO (08:55)
[2021-08-31] MEDS: ALBUTEROL INHALER 2 PUFF IH (08:55)
[2021-08-31] MEDS: OMEPRAZOLE 20 MG CAPSULE DR PO (08:55)
[2021-08-31] MEDS: VENLAFAXINE HCL ER 37.5 MG CAPSULE PO (08:56)
[2021-08-31] MEDS: CARBOXYMETHYLCELLULOSE (REFRESH PLUS) TEARS 1 DROP EYE-BOTH (08:56)
[2021-08-31] MEDS: METOPROLOL SUCCINATE (XL) 50 MG TAB PO (08:56)
[2021-08-31] MEDS: OCUVITE TABLET 2 TAB PO (08:56)
[2021-08-31] MEDS: FOLIC ACID 800 MCG 1 EACH PO (08:56)
[2021-08-31] MEDS: FUROSEMIDE 40 MG TABLET 60 MG PO (08:56)
[2021-08-31] MEDS: POTASSIUM CHLORIDE 10 MEQ CAPSULE ER PO (08:56)
[2021-08-31] MEDS: METFORMIN 1,000 MG TABLET 1000 MG PO (08:56)
[2021-08-31 12:10] VITALS: BP 116/65; PULSE 92; RESP 20; TEMP 36.2; O2SAT 95
--- NOTE | 2021-09-07 03:48 | PC.NURSE ---
Week #3---care plan problems #30-39 reviewed. No changes made. Nothing added to temporary care plan. Res. is currently out on an TEO. Has been independent with toileting at [facility]. Wears a pullup which she manages herself. Does own pericares. Skin---no issues before going out on TEO.
[2021-09-07] MEDS: OCUVITE TABLET 2 TAB PO ×2 (16:09→18:23)
[2021-09-07] MEDS: ALBUTEROL INHALER 2 PUFF IH ×3 (16:09→19:47)
[2021-09-07] MEDS: CARBOXYMETHYLCELLULOSE (REFRESH PLUS) TEARS 1 DROP EYE-BOTH ×3 (16:09→19:47)
[2021-09-07 16:20] LABS: SARS PCR* Negative SARS-CoV-2 (Negative)
[2021-09-07] MEDS: NICOTINE 4 MG GUM BUCCAL (17:20)
[2021-09-07] MEDS: METFORMIN 1,000 MG TABLET 1000 MG PO ×2 (17:20→18:23)
[2021-09-07] MEDS: ACETAMINOPHEN 500 MG TABLET 1000 MG PO (19:47)
[2021-09-07] MEDS: SENNOSIDES 1 TAB TABLET PO (19:48)
[2021-09-07] MEDS: ATORVASTATIN 10 MG TABLET PO (19:48)
[2021-09-07] MEDS: TRAZODONE HCL 50 MG TABLET PO (19:48)
--- NOTE | 2021-09-07 21:15 | PC.NURSE ---
Week #3: Skin: Resident has no skin issues at this time. Temporary care plan reviewed no change. Care plan 30-39 reviewed no change. Resident toilets self. Will use call light when needed. Is continent.
[2021-09-07 21:31] VITALS: BP 117/70; PULSE 103; RESP 18; TEMP 36.4; O2SAT 94
--- NOTE | 2021-09-07 22:14 | PC.NURSE ---
Addendum entered by Patricia Guy 09/07/21 22:18: Resident back at around 1400. Original Note: Status: Resident back from outing. Covid test done, is negative. No O2 needed SPO2 at 94% all other vital signs okay. Resident ate in dining room, reported being tired from trip.
[2021-09-07 23:00] VITALS: TEMP 35.6; O2SAT 98
[2021-09-08 07:00] VITALS: TEMP 36.6; O2SAT 97
[2021-09-08] MEDS: ALBUTEROL INHALER 2 PUFF IH ×4 (07:01→19:50)
[2021-09-08] MEDS: FUROSEMIDE 40 MG TABLET 60 MG PO (07:01)
[2021-09-08] MEDS: METOPROLOL SUCCINATE (XL) 50 MG TAB PO (07:01)
[2021-09-08] MEDS: VENLAFAXINE HCL ER 37.5 MG CAPSULE PO (07:01)
[2021-09-08] MEDS: VENLAFAXINE ER 75 MG CAPSULE PO (07:01)
[2021-09-08] MEDS: ASPIRIN 81 MG TABLET EC PO (07:01)
[2021-09-08] MEDS: OMEPRAZOLE 20 MG CAPSULE DR PO (07:01)
[2021-09-08] MEDS: ACETAMINOPHEN 500 MG TABLET 1000 MG PO ×3 (07:01→19:50)
[2021-09-08] MEDS: OCUVITE TABLET 2 TAB PO ×2 (07:02→16:30)
[2021-09-08] MEDS: CARBOXYMETHYLCELLULOSE (REFRESH PLUS) TEARS 1 DROP EYE-BOTH ×4 (07:02→19:50)
[2021-09-08] MEDS: POTASSIUM CHLORIDE 10 MEQ CAPSULE ER PO (07:02)
[2021-09-08] MEDS: METFORMIN 1,000 MG TABLET 1000 MG PO ×2 (07:02→17:27)
[2021-09-08] MEDS: FOLIC ACID 800 MCG 1 EACH PO (07:02)
[2021-09-08] MEDS: NICOTINE 4 MG GUM BUCCAL (17:27)
[2021-09-08] MEDS: ATORVASTATIN 10 MG TABLET PO (19:50)
[2021-09-08] MEDS: SENNOSIDES 1 TAB TABLET PO (19:51)
[2021-09-08] MEDS: TRAZODONE HCL 50 MG TABLET PO (19:51)
[2021-09-08 21:21] VITALS: TEMP 36.3; O2SAT 94
[2021-09-08 23:00] VITALS: TEMP 35.8; O2SAT 93
[2021-09-09 07:00] VITALS: TEMP 36.6; O2SAT 97
[2021-09-09] MEDS: ASPIRIN 81 MG TABLET EC PO (08:51)
[2021-09-09] MEDS: OMEPRAZOLE 20 MG CAPSULE DR PO (08:51)
[2021-09-09] MEDS: ACETAMINOPHEN 500 MG TABLET 1000 MG PO ×3 (08:51→19:46)
[2021-09-09] MEDS: ALBUTEROL INHALER 2 PUFF IH ×4 (08:51→19:46)
[2021-09-09] MEDS: VENLAFAXINE ER 75 MG CAPSULE PO (08:52)
[2021-09-09] MEDS: CARBOXYMETHYLCELLULOSE (REFRESH PLUS) TEARS 1 DROP EYE-BOTH ×4 (08:52→19:47)
[2021-09-09] MEDS: FUROSEMIDE 40 MG TABLET 60 MG PO (08:52)
[2021-09-09] MEDS: METOPROLOL SUCCINATE (XL) 50 MG TAB PO (08:52)
[2021-09-09] MEDS: VENLAFAXINE HCL ER 37.5 MG CAPSULE PO (08:52)
[2021-09-09] MEDS: POTASSIUM CHLORIDE 10 MEQ CAPSULE ER PO (08:52)
[2021-09-09] MEDS: OCUVITE TABLET 2 TAB PO ×2 (08:52→16:05)
[2021-09-09] MEDS: METFORMIN 1,000 MG TABLET 1000 MG PO ×2 (08:52→17:19)
[2021-09-09] MEDS: NICOTINE 4 MG GUM BUCCAL ×2 (13:18→17:19)
[2021-09-09 18:35] VITALS: TEMP 36.7; O2SAT 97
[2021-09-09] MEDS: SENNOSIDES 1 TAB TABLET PO (19:47)
[2021-09-09] MEDS: ATORVASTATIN 10 MG TABLET PO (19:47)
[2021-09-09] MEDS: TRAZODONE HCL 50 MG TABLET PO (19:47)
[2021-09-09 23:00] VITALS: TEMP 36.7; O2SAT 94
[2021-09-10] MEDS: OMEPRAZOLE 20 MG CAPSULE DR PO (06:30)
[2021-09-10] MEDS: NICOTINE 4 MG GUM BUCCAL ×2 (06:43→17:19)
[2021-09-10 07:00] VITALS: TEMP 36.4; O2SAT 96
[2021-09-10] MEDS: ALBUTEROL INHALER 2 PUFF IH ×4 (11:55→19:45)
[2021-09-10] MEDS: ACETAMINOPHEN 500 MG TABLET 1000 MG PO ×3 (11:56→19:45)
[2021-09-10] MEDS: VENLAFAXINE ER 75 MG CAPSULE PO (11:57)
[2021-09-10] MEDS: FUROSEMIDE 40 MG TABLET 60 MG PO (11:57)
[2021-09-10] MEDS: METFORMIN 1,000 MG TABLET 1000 MG PO ×2 (11:57→17:19)
[2021-09-10] MEDS: ASPIRIN 81 MG TABLET EC PO (11:57)
[2021-09-10] MEDS: VENLAFAXINE HCL ER 37.5 MG CAPSULE PO (11:57)
[2021-09-10] MEDS: POTASSIUM CHLORIDE 10 MEQ CAPSULE ER PO (11:58)
[2021-09-10] MEDS: FOLIC ACID 800 MCG 1 EACH PO (11:58)
[2021-09-10] MEDS: OCUVITE TABLET 2 TAB PO ×2 (11:58→15:24)
[2021-09-10] MEDS: METOPROLOL SUCCINATE (XL) 50 MG TAB PO (11:58)
[2021-09-10] MEDS: CARBOXYMETHYLCELLULOSE (REFRESH PLUS) TEARS 1 DROP EYE-BOTH ×4 (11:59→19:46)
[2021-09-10 16:40] VITALS: TEMP 36.5; O2SAT 97
[2021-09-10] MEDS: TRAZODONE HCL 50 MG TABLET PO (19:46)
[2021-09-10] MEDS: SENNOSIDES 1 TAB TABLET PO (19:46)
[2021-09-10] MEDS: ATORVASTATIN 10 MG TABLET PO (19:46)
[2021-09-10 23:00] VITALS: TEMP 35.9; O2SAT 92
[2021-09-11] MEDS: OMEPRAZOLE 20 MG CAPSULE DR PO (06:35)
[2021-09-11] MEDS: NICOTINE 4 MG GUM BUCCAL ×2 (06:36→17:10)
[2021-09-11 07:00] VITALS: TEMP 36.6; O2SAT 96
[2021-09-11] MEDS: ALBUTEROL INHALER 2 PUFF IH ×4 (07:50→19:45)
[2021-09-11] MEDS: CARBOXYMETHYLCELLULOSE (REFRESH PLUS) TEARS 1 DROP EYE-BOTH ×4 (07:50→19:45)
[2021-09-11] MEDS: METOPROLOL SUCCINATE (XL) 50 MG TAB PO (07:50)
[2021-09-11] MEDS: ACETAMINOPHEN 500 MG TABLET 1000 MG PO ×3 (07:50→19:44)
[2021-09-11] MEDS: OCUVITE TABLET 2 TAB PO ×2 (07:50→16:15)
[2021-09-11] MEDS: FOLIC ACID 800 MCG 1 EACH PO (07:50)
[2021-09-11] MEDS: METFORMIN 1,000 MG TABLET 1000 MG PO ×2 (07:50→17:09)
[2021-09-11] MEDS: POTASSIUM CHLORIDE 10 MEQ CAPSULE ER PO (07:50)
[2021-09-11] MEDS: VENLAFAXINE HCL ER 37.5 MG CAPSULE PO (07:50)
[2021-09-11] MEDS: FUROSEMIDE 40 MG TABLET 60 MG PO (07:50)
[2021-09-11] MEDS: VENLAFAXINE ER 75 MG CAPSULE PO (07:50)
[2021-09-11] MEDS: ASPIRIN 81 MG TABLET EC PO (07:50)
[2021-09-11] MEDS: ATORVASTATIN 10 MG TABLET PO (19:45)
[2021-09-11] MEDS: TRAZODONE HCL 50 MG TABLET PO (19:45)
[2021-09-11] MEDS: SENNOSIDES 1 TAB TABLET PO (19:45)
[2021-09-11 21:06] VITALS: TEMP 36.7; O2SAT 95
[2021-09-11 23:00] VITALS: TEMP 36.2; O2SAT 92
[2021-09-12] MEDS: OMEPRAZOLE 20 MG CAPSULE DR PO (07:05)
[2021-09-12] MEDS: ASPIRIN 81 MG TABLET EC PO (07:06)
[2021-09-12] MEDS: ALBUTEROL INHALER 2 PUFF IH ×4 (07:06→19:34)
[2021-09-12] MEDS: ACETAMINOPHEN 500 MG TABLET 1000 MG PO ×3 (07:06→19:34)
[2021-09-12] MEDS: METFORMIN 1,000 MG TABLET 1000 MG PO ×2 (07:07→17:31)
[2021-09-12] MEDS: METOPROLOL SUCCINATE (XL) 50 MG TAB PO (07:07)
[2021-09-12] MEDS: FUROSEMIDE 40 MG TABLET 60 MG PO (07:07)
[2021-09-12] MEDS: VENLAFAXINE HCL ER 37.5 MG CAPSULE PO (07:07)
[2021-09-12] MEDS: VENLAFAXINE ER 75 MG CAPSULE PO (07:07)
[2021-09-12] MEDS: CARBOXYMETHYLCELLULOSE (REFRESH PLUS) TEARS 1 DROP EYE-BOTH ×4 (07:08→19:34)
[2021-09-12] MEDS: OCUVITE TABLET 2 TAB PO ×2 (07:08→15:57)
[2021-09-12] MEDS: POTASSIUM CHLORIDE 10 MEQ CAPSULE ER PO (07:08)
[2021-09-12] MEDS: FOLIC ACID 800 MCG 1 EACH PO (07:08)
[2021-09-12 10:29] VITALS: TEMP 36.2; O2SAT 92
[2021-09-12 13:03] LABS: SARS PCR* Negative SARS-CoV-2 (Negative)
[2021-09-12 15:00] VITALS: TEMP 36.6; O2SAT 95
[2021-09-12] MEDS: NICOTINE 4 MG GUM BUCCAL (17:31)
[2021-09-12] MEDS: SENNOSIDES 1 TAB TABLET PO (19:34)
[2021-09-12] MEDS: ATORVASTATIN 10 MG TABLET PO (19:34)
[2021-09-12] MEDS: TRAZODONE HCL 50 MG TABLET PO (19:34)
[2021-09-12 23:00] VITALS: TEMP 36.1; O2SAT 96
[2021-09-13] MEDS: OMEPRAZOLE 20 MG CAPSULE DR PO (06:43)
[2021-09-13] MEDS: METFORMIN 1,000 MG TABLET 1000 MG PO ×2 (07:07→18:10)
[2021-09-13] MEDS: VENLAFAXINE HCL ER 37.5 MG CAPSULE PO (07:07)
[2021-09-13] MEDS: FOLIC ACID 800 MCG 1 EACH PO (07:07)
[2021-09-13] MEDS: CARBOXYMETHYLCELLULOSE (REFRESH PLUS) TEARS 1 DROP EYE-BOTH ×4 (07:07→19:27)
[2021-09-13] MEDS: ASPIRIN 81 MG TABLET EC PO (07:07)
[2021-09-13] MEDS: ACETAMINOPHEN 500 MG TABLET 1000 MG PO ×3 (07:07→19:27)
[2021-09-13] MEDS: VENLAFAXINE ER 75 MG CAPSULE PO (07:07)
[2021-09-13] MEDS: METOPROLOL SUCCINATE (XL) 50 MG TAB PO (07:07)
[2021-09-13] MEDS: OCUVITE TABLET 2 TAB PO ×2 (07:07→15:30)
[2021-09-13] MEDS: ALBUTEROL INHALER 2 PUFF IH ×4 (07:07→19:27)
[2021-09-13] MEDS: POTASSIUM CHLORIDE 10 MEQ CAPSULE ER PO (07:07)
[2021-09-13] MEDS: FUROSEMIDE 40 MG TABLET 60 MG PO (07:07)
[2021-09-13] MEDS: NICOTINE 4 MG GUM BUCCAL ×2 (09:06→18:10)
[2021-09-13 10:27] VITALS: TEMP 37.1; O2SAT 96
--- NOTE | 2021-09-13 13:30 | PC.NURSE ---
Recert Visit: Resident seen by PRIMARY TEACHING ASSISTANTAnselmo. Orders reviewed and renewed of 75 days with changes. Order: D/C Hydrocortisone Cream QID PRN,& Zofran PRN.
--- NOTE | 2021-09-13 14:13 | PC.NURSE ---
Chest pain - pt experienced episode of chest pain at 1310. Pt walked to front desk auxiliary and claimed she had sharp pain in right chest. O2 sat 99, HR 80. Administered 30cc of antacid liquid. Chest pain resolved in 15 minutes and pt felt comfortable returning to her room.
[2021-09-13 15:00] VITALS: TEMP 36.6; O2SAT 95
[2021-09-13] MEDS: ATORVASTATIN 10 MG TABLET PO (19:27)
[2021-09-13] MEDS: SENNOSIDES 1 TAB TABLET PO (19:27)
[2021-09-13] MEDS: TRAZODONE HCL 50 MG TABLET PO (19:27)
[2021-09-13 23:00] VITALS: TEMP 37; O2SAT 95
--- NOTE | 2021-09-14 02:22 | PC.NURSE ---
Week #4---care plan problems #40+ reviewed. No changes made. Nothing added to temporary care plan. Uses call light for needs. No changes noted in hearing, vision, or orientation. No behavior problems at [facility]. Sleeps well. Continues on the following psychotropic meds: Effexor Xr 112.5 mg qd and Trazadone 50 mg at HS. No adverse effects noted.
[2021-09-14] MEDS: OMEPRAZOLE 20 MG CAPSULE DR PO (06:44)
--- NOTE | 2021-09-14 06:56 | PC.NURSE ---
Week #4: Care plan problems 40-19 and temporary care plan reviewed. No changes made. Nothing added to temporary care plan. No change in communication, hearing, vision, & orientation. Does communicate needs. Wears glasses. Has hearing difficulties in some environment, no hearing device. Cognition intact. Is able to self administer medications. Chronic health condition stable. Meds can be left with her, & nurse to check they are taken. Behavior/Mood: No issues this past month. Continues on Effexor 112.5mg daily, Trazodone 50mg @ HS with no adverse effects. Has no change in medications.
[2021-09-14] MEDS: ALBUTEROL INHALER 2 PUFF IH ×4 (08:14→19:54)
[2021-09-14] MEDS: CARBOXYMETHYLCELLULOSE (REFRESH PLUS) TEARS 1 DROP EYE-BOTH ×4 (08:14→19:54)
[2021-09-14] MEDS: POTASSIUM CHLORIDE 10 MEQ CAPSULE ER PO (08:14)
[2021-09-14] MEDS: FUROSEMIDE 40 MG TABLET 60 MG PO (08:14)
[2021-09-14] MEDS: VENLAFAXINE ER 75 MG CAPSULE PO (08:14)
[2021-09-14] MEDS: METFORMIN 1,000 MG TABLET 1000 MG PO ×2 (08:14→17:24)
[2021-09-14] MEDS: OCUVITE TABLET 2 TAB PO ×2 (08:14→16:13)
[2021-09-14] MEDS: METOPROLOL SUCCINATE (XL) 50 MG TAB PO (08:14)
[2021-09-14] MEDS: FOLIC ACID 800 MCG 1 EACH PO (08:14)
[2021-09-14] MEDS: VENLAFAXINE HCL ER 37.5 MG CAPSULE PO (08:14)
[2021-09-14] MEDS: ACETAMINOPHEN 500 MG TABLET 1000 MG PO ×3 (08:14→19:54)
[2021-09-14] MEDS: ASPIRIN 81 MG TABLET EC PO (08:14)
--- NOTE | 2021-09-14 10:00 | PC.NURSE ---
HUMIRA: Medication error was noted, resident has missed past two doses of scheduled Humira injection (08/29/21 & 09/12/21). It seems this was due to an error when medication was entered into new [email or web address] system. PASTEURIZING MACHINE OPERATOR Anselmo was notified, she informed this nurse to restart medication today, no monitoring needed. Resident was notified of this issue.
[2021-09-14 11:17] VITALS: BP 103/58; PULSE 70; RESP 28; TEMP 36.5; TEMP 37.1; O2SAT 97; O2SAT 99
[2021-09-14] MEDS: NICOTINE 4 MG GUM BUCCAL (17:24)
[2021-09-14] MEDS: ATORVASTATIN 10 MG TABLET PO (19:54)
[2021-09-14] MEDS: SENNOSIDES 1 TAB TABLET PO (19:54)
[2021-09-14] MEDS: TRAZODONE HCL 50 MG TABLET PO (19:54)
--- NOTE | 2021-09-14 21:33 | PC.NURSE ---
Status: Has Nicorette gum at 1724. Blood sugar 187.
[2021-09-15] MEDS: OMEPRAZOLE 20 MG CAPSULE DR PO (06:51)
[2021-09-15] MEDS: VENLAFAXINE ER 75 MG CAPSULE PO (07:17)
[2021-09-15] MEDS: OCUVITE TABLET 2 TAB PO ×2 (07:17→17:10)
[2021-09-15] MEDS: FOLIC ACID 800 MCG 1 EACH PO (07:17)
[2021-09-15] MEDS: ACETAMINOPHEN 500 MG TABLET 1000 MG PO ×3 (07:17→20:26)
[2021-09-15] MEDS: VENLAFAXINE HCL ER 37.5 MG CAPSULE PO (07:17)
[2021-09-15] MEDS: CARBOXYMETHYLCELLULOSE (REFRESH PLUS) TEARS 1 DROP EYE-BOTH ×4 (07:17→20:26)
[2021-09-15] MEDS: ALBUTEROL INHALER 2 PUFF IH ×4 (07:17→20:26)
[2021-09-15] MEDS: ASPIRIN 81 MG TABLET EC PO (07:17)
[2021-09-15] MEDS: METOPROLOL SUCCINATE (XL) 50 MG TAB PO (07:17)
[2021-09-15] MEDS: POTASSIUM CHLORIDE 10 MEQ CAPSULE ER PO (08:49)
[2021-09-15] MEDS: FUROSEMIDE 40 MG TABLET 60 MG PO (08:49)
[2021-09-15] MEDS: METFORMIN 1,000 MG TABLET 1000 MG PO ×2 (08:49→17:11)
[2021-09-15] MEDS: NICOTINE 4 MG GUM BUCCAL (17:11)
[2021-09-15] MEDS: TRAZODONE HCL 50 MG TABLET PO (20:26)
[2021-09-15] MEDS: SENNOSIDES 1 TAB TABLET PO (20:26)
[2021-09-15] MEDS: ATORVASTATIN 10 MG TABLET PO (20:26)
[2021-09-15 21:47] VITALS: TEMP 36.9; O2SAT 98
[2021-09-16] MEDS: OMEPRAZOLE 20 MG CAPSULE DR PO (06:56)
[2021-09-16] MEDS: ASPIRIN 81 MG TABLET EC PO (07:07)
[2021-09-16] MEDS: ALBUTEROL INHALER 2 PUFF IH ×4 (07:07→20:02)
[2021-09-16] MEDS: METOPROLOL SUCCINATE (XL) 50 MG TAB PO (07:07)
[2021-09-16] MEDS: VENLAFAXINE HCL ER 37.5 MG CAPSULE PO (07:07)
[2021-09-16] MEDS: ACETAMINOPHEN 500 MG TABLET 1000 MG PO ×3 (07:07→20:02)
[2021-09-16] MEDS: VENLAFAXINE ER 75 MG CAPSULE PO (07:07)
[2021-09-16] MEDS: OCUVITE TABLET 2 TAB PO ×2 (07:08→15:53)
[2021-09-16] MEDS: CARBOXYMETHYLCELLULOSE (REFRESH PLUS) TEARS 1 DROP EYE-BOTH ×4 (07:08→20:02)
[2021-09-16] MEDS: METFORMIN 1,000 MG TABLET 1000 MG PO ×2 (08:55→17:24)
[2021-09-16] MEDS: POTASSIUM CHLORIDE 10 MEQ CAPSULE ER PO (08:55)
[2021-09-16] MEDS: FUROSEMIDE 40 MG TABLET 60 MG PO (08:55)
[2021-09-16] MEDS: NICOTINE 4 MG GUM BUCCAL (17:24)
[2021-09-16] MEDS: OXYCODONE 5 MG TABLET PO (18:18)
[2021-09-16] MEDS: TRAZODONE HCL 50 MG TABLET PO (20:02)
[2021-09-16] MEDS: SENNOSIDES 1 TAB TABLET PO (20:02)
[2021-09-16] MEDS: ATORVASTATIN 10 MG TABLET PO (20:02)
[2021-09-16 22:03] VITALS: TEMP 36.6; O2SAT 95
[2021-09-17] MEDS: OMEPRAZOLE 20 MG CAPSULE DR PO (07:27)
[2021-09-17] MEDS: ACETAMINOPHEN 500 MG TABLET 1000 MG PO ×3 (07:27→19:40)
[2021-09-17] MEDS: ALBUTEROL INHALER 2 PUFF IH ×4 (07:27→19:40)
[2021-09-17] MEDS: METOPROLOL SUCCINATE (XL) 50 MG TAB PO (07:28)
[2021-09-17] MEDS: ASPIRIN 81 MG TABLET EC PO (07:28)
[2021-09-17] MEDS: FUROSEMIDE 40 MG TABLET 60 MG PO (07:28)
[2021-09-17] MEDS: METFORMIN 1,000 MG TABLET 1000 MG PO ×2 (07:28→18:01)
[2021-09-17] MEDS: VENLAFAXINE ER 75 MG CAPSULE PO (07:28)
[2021-09-17] MEDS: VENLAFAXINE HCL ER 37.5 MG CAPSULE PO (07:28)
[2021-09-17] MEDS: CARBOXYMETHYLCELLULOSE (REFRESH PLUS) TEARS 1 DROP EYE-BOTH ×4 (07:30→19:41)
[2021-09-17] MEDS: POTASSIUM CHLORIDE 10 MEQ CAPSULE ER PO (07:30)
[2021-09-17] MEDS: NICOTINE 4 MG GUM BUCCAL ×2 (07:30→19:44)
[2021-09-17] MEDS: OCUVITE TABLET 2 TAB PO ×2 (07:30→15:30)
[2021-09-17] MEDS: FOLIC ACID 800 MCG 1 EACH PO (07:30)
[2021-09-17] MEDS: ATORVASTATIN 10 MG TABLET PO (19:40)
[2021-09-17] MEDS: TRAZODONE HCL 50 MG TABLET PO (19:41)
[2021-09-17] MEDS: SENNOSIDES 1 TAB TABLET PO (19:41)
[2021-09-17 21:50] VITALS: TEMP 36.8; O2SAT 90
[2021-09-18] MEDS: OMEPRAZOLE 20 MG CAPSULE DR PO (06:40)
[2021-09-18] MEDS: ACETAMINOPHEN 500 MG TABLET 1000 MG PO ×3 (08:08→19:35)
[2021-09-18] MEDS: ALBUTEROL INHALER 2 PUFF IH ×4 (08:08→19:35)
[2021-09-18] MEDS: VENLAFAXINE HCL ER 37.5 MG CAPSULE PO (08:09)
[2021-09-18] MEDS: VENLAFAXINE ER 75 MG CAPSULE PO (08:09)
[2021-09-18] MEDS: ASPIRIN 81 MG TABLET EC PO (08:09)
[2021-09-18] MEDS: FOLIC ACID 800 MCG 1 EACH PO (08:10)
[2021-09-18] MEDS: OCUVITE TABLET 2 TAB PO ×2 (08:10→15:35)
[2021-09-18] MEDS: METOPROLOL SUCCINATE (XL) 50 MG TAB PO (08:10)
[2021-09-18] MEDS: METFORMIN 1,000 MG TABLET 1000 MG PO ×2 (08:11→17:18)
[2021-09-18] MEDS: FUROSEMIDE 40 MG TABLET 60 MG PO (08:11)
[2021-09-18] MEDS: POTASSIUM CHLORIDE 10 MEQ CAPSULE ER PO (08:11)
[2021-09-18] MEDS: CARBOXYMETHYLCELLULOSE (REFRESH PLUS) TEARS 1 DROP EYE-BOTH ×4 (08:12→19:35)
[2021-09-18] MEDS: NICOTINE 4 MG GUM BUCCAL ×2 (09:30→17:18)
[2021-09-18 18:38] VITALS: TEMP 36.6; O2SAT 94
[2021-09-18] MEDS: TRAZODONE HCL 50 MG TABLET PO (19:36)
[2021-09-18] MEDS: ATORVASTATIN 10 MG TABLET PO (19:36)
[2021-09-18] MEDS: SENNOSIDES 1 TAB TABLET PO (19:36)
[2021-09-19] MEDS: OMEPRAZOLE 20 MG CAPSULE DR PO (08:45)
[2021-09-19] MEDS: ALBUTEROL INHALER 2 PUFF IH ×4 (08:46→19:42)
[2021-09-19] MEDS: ACETAMINOPHEN 500 MG TABLET 1000 MG PO ×3 (08:46→19:42)
[2021-09-19] MEDS: ASPIRIN 81 MG TABLET EC PO (08:46)
[2021-09-19] MEDS: VENLAFAXINE HCL ER 37.5 MG CAPSULE PO (08:47)
[2021-09-19] MEDS: VENLAFAXINE ER 75 MG CAPSULE PO (08:47)
[2021-09-19] MEDS: FUROSEMIDE 40 MG TABLET 60 MG PO (08:47)
[2021-09-19] MEDS: METFORMIN 1,000 MG TABLET 1000 MG PO ×2 (08:47→17:22)
[2021-09-19] MEDS: METOPROLOL SUCCINATE (XL) 50 MG TAB PO (08:47)
[2021-09-19] MEDS: OCUVITE TABLET 2 TAB PO ×2 (08:48→15:58)
[2021-09-19] MEDS: FOLIC ACID 800 MCG 1 EACH PO (08:48)
[2021-09-19] MEDS: POTASSIUM CHLORIDE 10 MEQ CAPSULE ER PO (08:49)
[2021-09-19] MEDS: CARBOXYMETHYLCELLULOSE (REFRESH PLUS) TEARS 1 DROP EYE-BOTH ×4 (08:49→19:42)
[2021-09-19 16:00] VITALS: TEMP 36.9; O2SAT 96
[2021-09-19] MEDS: NICOTINE 4 MG GUM BUCCAL (17:22)
[2021-09-19] MEDS: TRAZODONE HCL 50 MG TABLET PO (19:42)
[2021-09-19] MEDS: ATORVASTATIN 10 MG TABLET PO (19:42)
[2021-09-19] MEDS: SENNOSIDES 1 TAB TABLET PO (19:42)
[2021-09-20] MEDS: OMEPRAZOLE 20 MG CAPSULE DR PO (06:34)
[2021-09-20] MEDS: ACETAMINOPHEN 500 MG TABLET 1000 MG PO ×3 (07:11→19:22)
[2021-09-20] MEDS: ASPIRIN 81 MG TABLET EC PO (07:12)
[2021-09-20] MEDS: ALBUTEROL INHALER 2 PUFF IH ×4 (07:12→19:22)
[2021-09-20] MEDS: VENLAFAXINE ER 75 MG CAPSULE PO (07:12)
[2021-09-20] MEDS: VENLAFAXINE HCL ER 37.5 MG CAPSULE PO (07:12)
[2021-09-20] MEDS: FUROSEMIDE 40 MG TABLET 60 MG PO (07:12)
[2021-09-20] MEDS: CARBOXYMETHYLCELLULOSE (REFRESH PLUS) TEARS 1 DROP EYE-BOTH ×4 (07:13→19:22)
[2021-09-20] MEDS: POTASSIUM CHLORIDE 10 MEQ CAPSULE ER PO (07:13)
[2021-09-20] MEDS: FOLIC ACID 800 MCG 1 EACH PO (07:13)
[2021-09-20] MEDS: OCUVITE TABLET 2 TAB PO ×2 (07:13→15:57)
[2021-09-20] MEDS: METOPROLOL SUCCINATE (XL) 50 MG TAB PO (07:18)
[2021-09-20] MEDS: METFORMIN 1,000 MG TABLET 1000 MG PO ×2 (07:18→18:15)
--- NOTE | 2021-09-20 10:30 | PC.NURSE ---
TEO Resident went out with son for lunch and the afternoon. She had her noon DIANE and 1600 Ocuvite sent with as well as eyedrops and a prn Oxycodone.
[2021-09-20 17:11] VITALS: TEMP 36.6; O2SAT 93
[2021-09-20] MEDS: NICOTINE 4 MG GUM BUCCAL (18:15)
[2021-09-20] MEDS: ATORVASTATIN 10 MG TABLET PO (19:22)
[2021-09-20] MEDS: SENNOSIDES 1 TAB TABLET PO (19:23)
[2021-09-20] MEDS: TRAZODONE HCL 50 MG TABLET PO (19:23)
--- NOTE | 2021-09-21 03:15 | PC.NURSE ---
Week #1---care plan problems #1-19 reviewed. No changes made. Nothing added to temporary care plan. Has water at bedside that she can drink per self. Refilled by staff as needed. If she gets up early will request a cup of coffee. Pain---no c/o's pain at noc this past month. Continues to receive Tylenol 1000 mg tid for pain control. Also has an order for Oxycodone 5 mg q6h prn.
[2021-09-21] MEDS: OMEPRAZOLE 20 MG CAPSULE DR PO (06:44)
[2021-09-21] MEDS: NICOTINE 4 MG GUM BUCCAL ×3 (06:47→18:25)
[2021-09-21] MEDS: ASPIRIN 81 MG TABLET EC PO (08:27)
[2021-09-21] MEDS: FUROSEMIDE 40 MG TABLET 60 MG PO (08:27)
[2021-09-21] MEDS: ALBUTEROL INHALER 2 PUFF IH ×4 (08:27→19:34)
[2021-09-21] MEDS: VENLAFAXINE HCL ER 37.5 MG CAPSULE PO (08:27)
[2021-09-21] MEDS: ACETAMINOPHEN 500 MG TABLET 1000 MG PO ×3 (08:27→19:34)
[2021-09-21] MEDS: METFORMIN 1,000 MG TABLET 1000 MG PO ×2 (08:27→17:05)
[2021-09-21] MEDS: VENLAFAXINE ER 75 MG CAPSULE PO (08:27)
[2021-09-21] MEDS: OCUVITE TABLET 2 TAB PO ×2 (08:28→16:00)
[2021-09-21] MEDS: POTASSIUM CHLORIDE 10 MEQ CAPSULE ER PO (08:28)
[2021-09-21] MEDS: CARBOXYMETHYLCELLULOSE (REFRESH PLUS) TEARS 1 DROP EYE-BOTH ×4 (08:28→19:33)
[2021-09-21] MEDS: FOLIC ACID 800 MCG 1 EACH PO (08:28)
[2021-09-21] MEDS: METOPROLOL SUCCINATE (XL) 50 MG TAB PO (08:28)
--- NOTE | 2021-09-21 10:23 | PC.NURSE ---
Week #1: Care plan problems 1-19 and temporary care plan reviewed. No changes made. Nothing added to temporary care plan. Resident is independent with dressing, grooming, oral cares, & feeding. Is able to ask for assistance as needed. Needs supervision with bathing. Is on regular diet and receives nourishment TID. No problems reported with chewing or swallowing. Pain: No c/o of pain this past month. Has chronic pain managed with Tylenol 1000mg TID. And has an order for Oxycodone 5mg Q6H PRN which she use occasionally. Is able to communicate need for pain.
[2021-09-21 10:34] VITALS: BP 119/75; PULSE 75; RESP 22; TEMP 37; O2SAT 98
--- NOTE | 2021-09-21 14:02 | PC.SPIRITC ---
Dowel Inserting Machine Operator provided visit for support, connection, and prayer.
[2021-09-21] MEDS: ATORVASTATIN 10 MG TABLET PO (19:34)
[2021-09-21] MEDS: SENNOSIDES 1 TAB TABLET PO (19:34)
[2021-09-21] MEDS: TRAZODONE HCL 50 MG TABLET PO (19:34)
[2021-09-21 21:17] VITALS: TEMP 36.4; O2SAT 94
[2021-09-22] MEDS: METOPROLOL SUCCINATE (XL) 50 MG TAB PO (07:24)
[2021-09-22] MEDS: ASPIRIN 81 MG TABLET EC PO (07:24)
[2021-09-22] MEDS: OMEPRAZOLE 20 MG CAPSULE DR PO (07:24)
[2021-09-22] MEDS: OCUVITE TABLET 2 TAB PO ×2 (07:24→16:03)
[2021-09-22] MEDS: ACETAMINOPHEN 500 MG TABLET 1000 MG PO ×3 (07:24→19:42)
[2021-09-22] MEDS: VENLAFAXINE ER 75 MG CAPSULE PO (07:24)
[2021-09-22] MEDS: CARBOXYMETHYLCELLULOSE (REFRESH PLUS) TEARS 1 DROP EYE-BOTH ×4 (07:24→19:42)
[2021-09-22] MEDS: ALBUTEROL INHALER 2 PUFF IH ×4 (07:24→19:42)
[2021-09-22] MEDS: FOLIC ACID 800 MCG 1 EACH PO (07:24)
[2021-09-22] MEDS: METFORMIN 1,000 MG TABLET 1000 MG PO ×2 (07:24→17:19)
[2021-09-22] MEDS: FUROSEMIDE 40 MG TABLET 60 MG PO (07:24)
[2021-09-22] MEDS: VENLAFAXINE HCL ER 37.5 MG CAPSULE PO (07:24)
[2021-09-22] MEDS: NICOTINE 4 MG GUM BUCCAL ×2 (08:18→17:20)
[2021-09-22] MEDS: POTASSIUM CHLORIDE 10 MEQ CAPSULE ER PO (08:23)
[2021-09-22] MEDS: ATORVASTATIN 10 MG TABLET PO (19:42)
[2021-09-22] MEDS: TRAZODONE HCL 50 MG TABLET PO (19:43)
[2021-09-22] MEDS: SENNOSIDES 1 TAB TABLET PO (19:43)
[2021-09-22 21:20] VITALS: TEMP 36.5; O2SAT 96
[2021-09-23] MEDS: NICOTINE 4 MG GUM BUCCAL ×2 (06:51→17:03)
[2021-09-23] MEDS: OMEPRAZOLE 20 MG CAPSULE DR PO (06:54)
[2021-09-23] MEDS: METOPROLOL SUCCINATE (XL) 50 MG TAB PO (07:03)
[2021-09-23] MEDS: VENLAFAXINE HCL ER 37.5 MG CAPSULE PO (07:03)
[2021-09-23] MEDS: ASPIRIN 81 MG TABLET EC PO (07:03)
[2021-09-23] MEDS: CARBOXYMETHYLCELLULOSE (REFRESH PLUS) TEARS 1 DROP EYE-BOTH ×4 (07:03→19:40)
[2021-09-23] MEDS: ACETAMINOPHEN 500 MG TABLET 1000 MG PO ×3 (07:03→19:40)
[2021-09-23] MEDS: OCUVITE TABLET 2 TAB PO ×2 (07:03→16:19)
[2021-09-23] MEDS: VENLAFAXINE ER 75 MG CAPSULE PO (07:03)
[2021-09-23] MEDS: ALBUTEROL INHALER 2 PUFF IH ×4 (07:03→19:40)
[2021-09-23] MEDS: FUROSEMIDE 40 MG TABLET 60 MG PO (08:55)
[2021-09-23] MEDS: METFORMIN 1,000 MG TABLET 1000 MG PO ×2 (08:55→17:03)
[2021-09-23] MEDS: POTASSIUM CHLORIDE 10 MEQ CAPSULE ER PO (08:55)
[2021-09-23] MEDS: MAG HYDROX/ALUMINUM HYD/SIMETH 30 ML ORAL.SUSP 15 ML PO (12:28)
[2021-09-23] MEDS: ATORVASTATIN 10 MG TABLET PO (19:40)
[2021-09-23] MEDS: TRAZODONE HCL 50 MG TABLET PO (19:40)
[2021-09-23] MEDS: SENNOSIDES 1 TAB TABLET PO (19:40)
[2021-09-23 21:29] VITALS: TEMP 36.7; O2SAT 96
[2021-09-24] MEDS: OMEPRAZOLE 20 MG CAPSULE DR PO (06:56)
[2021-09-24] MEDS: ALBUTEROL INHALER 2 PUFF IH ×2 (07:01→12:36)
[2021-09-24] MEDS: VENLAFAXINE ER 75 MG CAPSULE PO (07:01)
[2021-09-24] MEDS: ASPIRIN 81 MG TABLET EC PO (07:01)
[2021-09-24] MEDS: ACETAMINOPHEN 500 MG TABLET 1000 MG PO ×2 (07:01→12:36)
[2021-09-24] MEDS: FOLIC ACID 800 MCG 1 EACH PO (07:02)
[2021-09-24] MEDS: CARBOXYMETHYLCELLULOSE (REFRESH PLUS) TEARS 1 DROP EYE-BOTH ×2 (07:02→12:36)
[2021-09-24] MEDS: FUROSEMIDE 40 MG TABLET 60 MG PO (07:02)
[2021-09-24] MEDS: OCUVITE TABLET 2 TAB PO (07:02)
[2021-09-24] MEDS: NICOTINE 4 MG GUM BUCCAL (07:02)
[2021-09-24] MEDS: METOPROLOL SUCCINATE (XL) 50 MG TAB PO (07:02)
[2021-09-24] MEDS: POTASSIUM CHLORIDE 10 MEQ CAPSULE ER PO (07:02)
[2021-09-24] MEDS: VENLAFAXINE HCL ER 37.5 MG CAPSULE PO (07:02)
[2021-09-24] MEDS: METFORMIN 1,000 MG TABLET 1000 MG PO (07:02)
[2021-09-24] MEDS: OXYCODONE 5 MG TABLET PO (07:03)
--- NOTE | 2021-09-24 10:43 | PC.NURSE ---
TEO: Resident left [facility] approximately 1027 for two days family visit on 09/24/21. Son picked her up via family transport. All scheduled medications and two tablets of PRN Oxycodone 5mg were sent with her.?
[2021-09-25] MEDS: ACETAMINOPHEN 500 MG TABLET 1000 MG PO ×3 (07:11→19:37)
[2021-09-25] MEDS: ALBUTEROL INHALER 2 PUFF IH ×4 (07:11→19:37)
[2021-09-25] MEDS: OMEPRAZOLE 20 MG CAPSULE DR PO (07:11)
[2021-09-25] MEDS: VENLAFAXINE ER 75 MG CAPSULE PO (07:12)
[2021-09-25] MEDS: ASPIRIN 81 MG TABLET EC PO (07:12)
[2021-09-25] MEDS: METOPROLOL SUCCINATE (XL) 50 MG TAB PO (07:12)
[2021-09-25] MEDS: FUROSEMIDE 40 MG TABLET 60 MG PO (07:12)
[2021-09-25] MEDS: FOLIC ACID 800 MCG 1 EACH PO (07:12)
[2021-09-25] MEDS: METFORMIN 1,000 MG TABLET 1000 MG PO ×2 (07:12→18:32)
[2021-09-25] MEDS: VENLAFAXINE HCL ER 37.5 MG CAPSULE PO (07:12)
[2021-09-25] MEDS: OCUVITE TABLET 2 TAB PO ×2 (07:13→16:22)
[2021-09-25] MEDS: CARBOXYMETHYLCELLULOSE (REFRESH PLUS) TEARS 1 DROP EYE-BOTH ×4 (07:13→19:36)
[2021-09-25] MEDS: POTASSIUM CHLORIDE 10 MEQ CAPSULE ER PO (07:13)
--- NOTE | 2021-09-25 13:56 | PC.NURSE ---
Back to [facility]: Resident returned to [facility] at 1230, 09/25/21.
[2021-09-25 17:16] VITALS: TEMP 36.7; O2SAT 95
[2021-09-25] MEDS: NICOTINE 4 MG GUM BUCCAL (18:32)
[2021-09-25] MEDS: SENNOSIDES 1 TAB TABLET PO (19:36)
[2021-09-25] MEDS: TRAZODONE HCL 50 MG TABLET PO (19:36)
[2021-09-25] MEDS: ATORVASTATIN 10 MG TABLET PO (19:37)
[2021-09-26] MEDS: OMEPRAZOLE 20 MG CAPSULE DR PO (06:41)
[2021-09-26] MEDS: ACETAMINOPHEN 500 MG TABLET 1000 MG PO ×3 (08:34→19:07)
[2021-09-26] MEDS: VENLAFAXINE ER 75 MG CAPSULE PO (08:34)
[2021-09-26] MEDS: ALBUTEROL INHALER 2 PUFF IH ×4 (08:34→19:07)
[2021-09-26] MEDS: ASPIRIN 81 MG TABLET EC PO (08:34)
[2021-09-26] MEDS: FUROSEMIDE 40 MG TABLET 60 MG PO (08:35)
[2021-09-26] MEDS: METOPROLOL SUCCINATE (XL) 50 MG TAB PO (08:35)
[2021-09-26] MEDS: POTASSIUM CHLORIDE 10 MEQ CAPSULE ER PO (08:35)
[2021-09-26] MEDS: OCUVITE TABLET 2 TAB PO ×2 (08:35→16:36)
[2021-09-26] MEDS: METFORMIN 1,000 MG TABLET 1000 MG PO ×2 (08:35→17:35)
[2021-09-26] MEDS: CARBOXYMETHYLCELLULOSE (REFRESH PLUS) TEARS 1 DROP EYE-BOTH ×4 (08:35→19:07)
[2021-09-26] MEDS: FOLIC ACID 800 MCG 1 EACH PO (08:35)
[2021-09-26] MEDS: VENLAFAXINE HCL ER 37.5 MG CAPSULE PO (08:35)
--- NOTE | 2021-09-26 14:17 | REH.OT ---
Hot Liquid Safety Eval Patient is limited by physical deficits Only drink hot liquids at table
[2021-09-26 15:00] VITALS: TEMP 36.7; O2SAT 96
[2021-09-26] MEDS: NICOTINE 4 MG GUM BUCCAL (17:36)
[2021-09-26] MEDS: ATORVASTATIN 10 MG TABLET PO (19:07)
[2021-09-26] MEDS: OXYCODONE 5 MG TABLET PO (19:07)
[2021-09-26] MEDS: SENNOSIDES 1 TAB TABLET PO (19:07)
[2021-09-26] MEDS: TRAZODONE HCL 50 MG TABLET PO (19:07)
[2021-09-26 23:00] VITALS: TEMP 36.6; O2SAT 93
[2021-09-27] MEDS: ACETAMINOPHEN 500 MG TABLET 1000 MG PO ×3 (07:03→19:29)
[2021-09-27] MEDS: OMEPRAZOLE 20 MG CAPSULE DR PO (07:03)
[2021-09-27] MEDS: ASPIRIN 81 MG TABLET EC PO (07:04)
[2021-09-27] MEDS: VENLAFAXINE ER 75 MG CAPSULE PO (07:04)
[2021-09-27] MEDS: METOPROLOL SUCCINATE (XL) 50 MG TAB PO (07:04)
[2021-09-27] MEDS: CARBOXYMETHYLCELLULOSE (REFRESH PLUS) TEARS 1 DROP EYE-BOTH ×4 (07:04→19:29)
[2021-09-27] MEDS: OCUVITE TABLET 2 TAB PO ×2 (07:04→16:24)
[2021-09-27] MEDS: VENLAFAXINE HCL ER 37.5 MG CAPSULE PO (07:04)
[2021-09-27] MEDS: ALBUTEROL INHALER 2 PUFF IH ×4 (07:04→19:29)
[2021-09-27] MEDS: FOLIC ACID 800 MCG 1 EACH PO (07:04)
[2021-09-27] MEDS: POTASSIUM CHLORIDE 10 MEQ CAPSULE ER PO (08:44)
[2021-09-27] MEDS: METFORMIN 1,000 MG TABLET 1000 MG PO ×2 (08:44→17:17)
[2021-09-27] MEDS: FUROSEMIDE 40 MG TABLET 60 MG PO (08:44)
[2021-09-27 10:37] VITALS: TEMP 36.1; O2SAT 94
[2021-09-27] MEDS: NICOTINE 4 MG GUM BUCCAL ×2 (10:37→17:17)
--- NOTE | 2021-09-27 12:23 | PC.SPIRITC ---
Grinder Mill Operator provided visit for support and connection.
--- NOTE | 2021-09-27 14:06 | PC.NURSE ---
CARE CONFERENCE: Resident, nursing, dietary, activities, and social service team present. Resident participates in activities occasionally. Reviewed ADLS, transfers and mobility. Resident is independent with all adls. Bathing is limited assist. Resident is continent of bowel and bladder. Independent with toileting hygiene. Nursing gives all medications. Medication list given to resident. Resident recently had an ER visit d/t acute issues with hyperglycemia. Metformin was increased. Blood sugars now stable and resident is much improved. Resident has a list of diabetic snacks that she likes, she states this is going well. She does note that she hasn't been enjoying the meals very much and orders ala carte frequently. Mood is stable, no concerns. Discussed other medications that have been ordered in past 90 days and resident has no questions/concerns at this time. Resident wonders how many days of outings she has left to use for the year--SW will follow up. SW is also assisted resident with getting new diabetic shoes. Resident also requests to be sent with a current medication list when she goes out with her family for more than a day or two. Care plan reviewed and updated. POLST reviewed. Is DNR/DNI. Uses no restraints. Does use 2 side rails up to assist with positioning. Vulnerability- is at risk for being harmed due to weakness and fragility. No plans for discharge. No questions/concerns at this time. Resident is happy with her cares.
--- NOTE | 2021-09-27 14:36 | PC.SOCIAL ---
Resident's care conference was held today. Resident had no concerns and health has been stable. Resident expressed not caring for some of the meals but orders of the ala carte menu often. Resident enjoys going on overnights with her sons and asked how many days per year she is allowed with her insurance to be gone on overnights. Answered this question for resident. Resident also would like new diabetic shoes and social work will work with her rep payee to get a new pair. Resident's mood remains stable no s/s of depression noted.
[2021-09-27 17:15] VITALS: TEMP 36.2; O2SAT 98
[2021-09-27] MEDS: ATORVASTATIN 10 MG TABLET PO (19:29)
[2021-09-27] MEDS: TRAZODONE HCL 50 MG TABLET PO (19:29)
[2021-09-27] MEDS: SENNOSIDES 1 TAB TABLET PO (19:29)
[2021-09-27 23:00] VITALS: TEMP 36.4; O2SAT 92
--- NOTE | 2021-09-28 03:57 | PC.NURSE ---
Week #2---care plan problems #20-29 reviewed. No changes made. Nothing added to temporary care plan. Continues to be independent with bed mobility, transfers, and ambulation. Uses top siderails in bed and a walker when she comes out of her room. Falls---no falls this past month. Is a low fall risk according to assessment done on 07/07/21.
[2021-09-28] MEDS: OMEPRAZOLE 20 MG CAPSULE DR PO (06:49)
[2021-09-28] MEDS: ALBUTEROL INHALER 2 PUFF IH ×4 (08:49→19:42)
[2021-09-28] MEDS: ACETAMINOPHEN 500 MG TABLET 1000 MG PO ×3 (08:49→19:42)
[2021-09-28] MEDS: ASPIRIN 81 MG TABLET EC PO (08:49)
[2021-09-28] MEDS: VENLAFAXINE ER 75 MG CAPSULE PO (08:50)
[2021-09-28] MEDS: VENLAFAXINE HCL ER 37.5 MG CAPSULE PO (08:50)
[2021-09-28] MEDS: METFORMIN 1,000 MG TABLET 1000 MG PO ×2 (08:50→17:11)
[2021-09-28] MEDS: OCUVITE TABLET 2 TAB PO ×2 (08:50→15:30)
[2021-09-28] MEDS: FOLIC ACID 800 MCG 1 EACH PO (08:50)
[2021-09-28] MEDS: METOPROLOL SUCCINATE (XL) 50 MG TAB PO (08:50)
[2021-09-28] MEDS: FUROSEMIDE 40 MG TABLET 60 MG PO (08:50)
[2021-09-28] MEDS: POTASSIUM CHLORIDE 10 MEQ CAPSULE ER PO (08:51)
[2021-09-28] MEDS: CARBOXYMETHYLCELLULOSE (REFRESH PLUS) TEARS 1 DROP EYE-BOTH ×4 (08:51→19:42)
[2021-09-28 09:55] VITALS: TEMP 35.8; O2SAT 93
--- NOTE | 2021-09-28 10:12 | PC.NURSE ---
Week #2: Vital signs reviewed and no concerns at this time. No falls in the last month noted. Resident is independent with ambulation using a front wheeled walker. Reviewed care problems - and temporary care plan. No changes made at this time.
[2021-09-28 10:29] VITALS: BP 113/69; PULSE 78; RESP 20; TEMP 35.8; O2SAT 93
[2021-09-28 10:43] VITALS: BMI 19.3
[2021-09-28 10:51] LABS: SARS PCR* Negative SARS-CoV-2 (Negative)
[2021-09-28 10:54] LABS: Chloride* 101 mmol/L (96-114); Potassium* 4.6 mmol/L (3.6-5.1); Sodium* 135 mmol/L (135-149)
[2021-09-28 10:57] LABS: Blood Urea Nitrogen* 13 mg/dL (7-30); Calcium* 8.7 mg/dL (8.4-10.6); Carbon Dioxide* 25 mmol/L (20-32); Creatinine* 0.8 mg/dL (0.5-1.5); Est. Creatinine Clearance* 29.69; Estimated Glomerular Filt Rate 73 ml/min; Glucose* 250 mg/dL (60-115)
--- NOTE | 2021-09-28 12:39 | PC.SOCIAL ---
Ordered resident new diabetic shoes and a few other items she requested. Sent the [employer] link to her rep payee at [employer].
[2021-09-28] MEDS: NICOTINE 4 MG GUM BUCCAL (17:11)
[2021-09-28] MEDS: ATORVASTATIN 10 MG TABLET PO (19:42)
[2021-09-28] MEDS: TRAZODONE HCL 50 MG TABLET PO (19:42)
[2021-09-28] MEDS: SENNOSIDES 1 TAB TABLET PO (19:42)
[2021-09-28 21:22] VITALS: TEMP 36.3; O2SAT 95
[2021-09-28 23:00] VITALS: TEMP 37.3; O2SAT 94
[2021-09-29] MEDS: ALBUTEROL INHALER 2 PUFF IH ×4 (07:09→19:55)
[2021-09-29] MEDS: OMEPRAZOLE 20 MG CAPSULE DR PO (07:09)
[2021-09-29] MEDS: VENLAFAXINE ER 75 MG CAPSULE PO (07:09)
[2021-09-29] MEDS: ACETAMINOPHEN 500 MG TABLET 1000 MG PO ×3 (07:09→19:55)
[2021-09-29] MEDS: VENLAFAXINE HCL ER 37.5 MG CAPSULE PO (07:09)
[2021-09-29] MEDS: ASPIRIN 81 MG TABLET EC PO (07:09)
[2021-09-29] MEDS: CARBOXYMETHYLCELLULOSE (REFRESH PLUS) TEARS 1 DROP EYE-BOTH ×4 (07:10→19:55)
[2021-09-29] MEDS: FOLIC ACID 800 MCG 1 EACH PO (07:10)
[2021-09-29] MEDS: METOPROLOL SUCCINATE (XL) 50 MG TAB PO (07:10)
[2021-09-29] MEDS: METFORMIN 1,000 MG TABLET 1000 MG PO ×2 (09:08→17:25)
[2021-09-29] MEDS: POTASSIUM CHLORIDE 10 MEQ CAPSULE ER PO (09:08)
[2021-09-29] MEDS: FUROSEMIDE 40 MG TABLET 60 MG PO (09:08)
[2021-09-29] MEDS: OCUVITE TABLET 2 TAB PO ×2 (09:08→15:05)
[2021-09-29 10:53] VITALS: TEMP 37.2; O2SAT 97
[2021-09-29 14:32] VITALS: BMI 19.5
[2021-09-29 17:18] VITALS: TEMP 36.9; O2SAT 96
[2021-09-29] MEDS: NICOTINE 4 MG GUM BUCCAL (17:25)
[2021-09-29] MEDS: ATORVASTATIN 10 MG TABLET PO (19:55)
[2021-09-29] MEDS: SENNOSIDES 1 TAB TABLET PO (19:56)
[2021-09-29] MEDS: TRAZODONE HCL 50 MG TABLET PO (19:56)
[2021-09-29 23:00] VITALS: TEMP 35.8; O2SAT 92
[2021-09-30] MEDS: OMEPRAZOLE 20 MG CAPSULE DR PO (07:03)
[2021-09-30] MEDS: ALBUTEROL INHALER 2 PUFF IH ×4 (07:03→19:36)
[2021-09-30] MEDS: ASPIRIN 81 MG TABLET EC PO (07:03)
[2021-09-30] MEDS: ACETAMINOPHEN 500 MG TABLET 1000 MG PO ×3 (07:03→19:36)
[2021-09-30] MEDS: VENLAFAXINE ER 75 MG CAPSULE PO (07:03)
[2021-09-30] MEDS: CARBOXYMETHYLCELLULOSE (REFRESH PLUS) TEARS 1 DROP EYE-BOTH ×4 (07:04→19:36)
[2021-09-30] MEDS: OCUVITE TABLET 2 TAB PO ×2 (07:04→15:56)
[2021-09-30] MEDS: VENLAFAXINE HCL ER 37.5 MG CAPSULE PO (07:04)
[2021-09-30] MEDS: METOPROLOL SUCCINATE (XL) 50 MG TAB PO (07:04)
[2021-09-30] MEDS: FUROSEMIDE 40 MG TABLET 60 MG PO (08:18)
[2021-09-30] MEDS: POTASSIUM CHLORIDE 10 MEQ CAPSULE ER PO (08:18)
[2021-09-30] MEDS: METFORMIN 1,000 MG TABLET 1000 MG PO ×2 (08:18→18:08)
[2021-09-30] MEDS: NICOTINE 4 MG GUM BUCCAL ×3 (08:28→18:09)
[2021-09-30 10:18] VITALS: TEMP 37.1; O2SAT 96
--- NOTE | 2021-09-30 11:06 | PC.NURSE ---
Lab: HgbA1C result reviewed by Dr. Rose. No new order.
[2021-09-30] MEDS: ATORVASTATIN 10 MG TABLET PO (19:36)
[2021-09-30] MEDS: SENNOSIDES 1 TAB TABLET PO (19:36)
[2021-09-30] MEDS: TRAZODONE HCL 50 MG TABLET PO (19:36)
[2021-09-30 21:35] VITALS: TEMP 36.6; O2SAT 97
[2021-10-01 00:12] VITALS: TEMP 36.1; O2SAT 92
[2021-10-01] MEDS: OMEPRAZOLE 20 MG CAPSULE DR PO (06:49)
[2021-10-01] MEDS: METOPROLOL SUCCINATE (XL) 50 MG TAB PO (07:08)
[2021-10-01] MEDS: ALBUTEROL INHALER 2 PUFF IH ×4 (07:08→19:27)
[2021-10-01] MEDS: FUROSEMIDE 40 MG TABLET 60 MG PO (07:08)
[2021-10-01] MEDS: METFORMIN 1,000 MG TABLET 1000 MG PO ×2 (07:08→17:21)
[2021-10-01] MEDS: VENLAFAXINE HCL ER 37.5 MG CAPSULE PO (07:08)
[2021-10-01] MEDS: ACETAMINOPHEN 500 MG TABLET 1000 MG PO ×3 (07:08→19:27)
[2021-10-01] MEDS: ASPIRIN 81 MG TABLET EC PO (07:08)
[2021-10-01] MEDS: VENLAFAXINE ER 75 MG CAPSULE PO (07:08)
[2021-10-01] MEDS: CARBOXYMETHYLCELLULOSE (REFRESH PLUS) TEARS 1 DROP EYE-BOTH ×4 (07:09→19:27)
[2021-10-01] MEDS: POTASSIUM CHLORIDE 10 MEQ CAPSULE ER PO (07:09)
[2021-10-01] MEDS: OCUVITE TABLET 2 TAB PO ×2 (07:09→15:48)
[2021-10-01] MEDS: FOLIC ACID 800 MCG 1 EACH PO (07:09)
[2021-10-01 10:44] VITALS: TEMP 36.7; O2SAT 90
[2021-10-01] MEDS: NICOTINE 4 MG GUM BUCCAL (17:22)
[2021-10-01 18:33] VITALS: TEMP 36.6; O2SAT 94
[2021-10-01] MEDS: SENNOSIDES 1 TAB TABLET PO (19:27)
[2021-10-01] MEDS: ATORVASTATIN 10 MG TABLET PO (19:27)
[2021-10-01] MEDS: TRAZODONE HCL 50 MG TABLET PO (19:28)
[2021-10-01 23:00] VITALS: TEMP 35.8; O2SAT 91
[2021-10-02] MEDS: OMEPRAZOLE 20 MG CAPSULE DR PO (06:32)
[2021-10-02] MEDS: FUROSEMIDE 40 MG TABLET 60 MG PO (07:31)
[2021-10-02] MEDS: METFORMIN 1,000 MG TABLET 1000 MG PO ×2 (07:31→17:21)
[2021-10-02] MEDS: ASPIRIN 81 MG TABLET EC PO (07:31)
[2021-10-02] MEDS: FOLIC ACID 800 MCG 1 EACH PO (07:31)
[2021-10-02] MEDS: ALBUTEROL INHALER 2 PUFF IH ×4 (07:31→19:20)
[2021-10-02] MEDS: VENLAFAXINE ER 75 MG CAPSULE PO (07:31)
[2021-10-02] MEDS: METOPROLOL SUCCINATE (XL) 50 MG TAB PO (07:31)
[2021-10-02] MEDS: ACETAMINOPHEN 500 MG TABLET 1000 MG PO ×3 (07:31→19:20)
[2021-10-02] MEDS: VENLAFAXINE HCL ER 37.5 MG CAPSULE PO (07:31)
[2021-10-02] MEDS: CARBOXYMETHYLCELLULOSE (REFRESH PLUS) TEARS 1 DROP EYE-BOTH ×4 (07:32→19:18)
[2021-10-02] MEDS: POTASSIUM CHLORIDE 10 MEQ CAPSULE ER PO (07:32)
[2021-10-02] MEDS: OCUVITE TABLET 2 TAB PO ×2 (07:32→16:21)
[2021-10-02] MEDS: NICOTINE 4 MG GUM BUCCAL ×2 (09:38→17:21)
[2021-10-02 09:54] VITALS: TEMP 36.8; O2SAT 92
[2021-10-02] MEDS: ATORVASTATIN 10 MG TABLET PO (19:20)
[2021-10-02] MEDS: TRAZODONE HCL 50 MG TABLET PO (19:21)
[2021-10-02] MEDS: SENNOSIDES 1 TAB TABLET PO (19:21)
[2021-10-02 21:26] VITALS: TEMP 36.6; O2SAT 95
[2021-10-02 23:00] VITALS: TEMP 36.5; O2SAT 94
[2021-10-03] MEDS: OMEPRAZOLE 20 MG CAPSULE DR PO (07:06)
[2021-10-03] MEDS: VENLAFAXINE ER 75 MG CAPSULE PO (07:06)
[2021-10-03] MEDS: ACETAMINOPHEN 500 MG TABLET 1000 MG PO ×3 (07:06→19:53)
[2021-10-03] MEDS: ALBUTEROL INHALER 2 PUFF IH ×4 (07:06→19:53)
[2021-10-03] MEDS: ASPIRIN 81 MG TABLET EC PO (07:06)
[2021-10-03] MEDS: VENLAFAXINE HCL ER 37.5 MG CAPSULE PO (07:06)
[2021-10-03] MEDS: METOPROLOL SUCCINATE (XL) 50 MG TAB PO (07:07)
[2021-10-03] MEDS: FOLIC ACID 800 MCG 1 EACH PO (07:07)
[2021-10-03] MEDS: OCUVITE TABLET 2 TAB PO ×2 (07:07→16:23)
[2021-10-03] MEDS: CARBOXYMETHYLCELLULOSE (REFRESH PLUS) TEARS 1 DROP EYE-BOTH ×4 (07:07→19:53)
[2021-10-03] MEDS: NICOTINE 4 MG GUM BUCCAL ×2 (07:24→18:55)
[2021-10-03] MEDS: METFORMIN 1,000 MG TABLET 1000 MG PO ×2 (08:42→18:51)
[2021-10-03] MEDS: FUROSEMIDE 40 MG TABLET 60 MG PO (08:42)
[2021-10-03] MEDS: POTASSIUM CHLORIDE 10 MEQ CAPSULE ER PO (08:42)
[2021-10-03 10:26] VITALS: TEMP 37; O2SAT 93
--- NOTE | 2021-10-03 10:56 | PC.NURSE ---
COVID TESTING: Resident provided verbal consent for outbreak COVID testing. Resident is currently asymptomatic. Resident/family will be notified only if resident is positive.
[2021-10-03 15:15] LABS: SARS PCR* Negative SARS-CoV-2 (Negative)
[2021-10-03] MEDS: TRAZODONE HCL 50 MG TABLET PO (19:53)
[2021-10-03] MEDS: SENNOSIDES 1 TAB TABLET PO (19:53)
[2021-10-03] MEDS: ATORVASTATIN 10 MG TABLET PO (19:53)
[2021-10-03 21:28] VITALS: TEMP 37.2; O2SAT 93
[2021-10-03 23:00] VITALS: TEMP 36.2; O2SAT 94
[2021-10-04] MEDS: OCUVITE TABLET 2 TAB PO ×2 (07:03→15:51)
[2021-10-04] MEDS: ALBUTEROL INHALER 2 PUFF IH ×3 (07:03→19:30)
[2021-10-04] MEDS: OMEPRAZOLE 20 MG CAPSULE DR PO (07:03)
[2021-10-04] MEDS: ACETAMINOPHEN 500 MG TABLET 1000 MG PO ×3 (07:03→19:24)
[2021-10-04] MEDS: METOPROLOL SUCCINATE (XL) 50 MG TAB PO (07:03)
[2021-10-04] MEDS: FOLIC ACID 800 MCG 1 EACH PO (07:03)
[2021-10-04] MEDS: ASPIRIN 81 MG TABLET EC PO (07:03)
[2021-10-04] MEDS: VENLAFAXINE ER 75 MG CAPSULE PO (07:03)
[2021-10-04] MEDS: VENLAFAXINE HCL ER 37.5 MG CAPSULE PO (07:03)
[2021-10-04] MEDS: CARBOXYMETHYLCELLULOSE (REFRESH PLUS) TEARS 1 DROP EYE-BOTH ×4 (07:04→19:24)
[2021-10-04] MEDS: NICOTINE 4 MG GUM BUCCAL ×2 (07:29→17:26)
[2021-10-04] MEDS: METFORMIN 1,000 MG TABLET 1000 MG PO ×2 (08:31→17:26)
[2021-10-04] MEDS: FUROSEMIDE 40 MG TABLET 60 MG PO (08:31)
[2021-10-04] MEDS: POTASSIUM CHLORIDE 10 MEQ CAPSULE ER PO (08:31)
[2021-10-04 11:07] VITALS: TEMP 36.3; O2SAT 94
--- NOTE | 2021-10-04 12:32 | PC.SPIRITC ---
provided written materials and note of encouragement for connection and support.
[2021-10-04 19:00] VITALS: TEMP 36.6; O2SAT 98
[2021-10-04] MEDS: TRAZODONE HCL 50 MG TABLET PO (19:25)
[2021-10-04] MEDS: ATORVASTATIN 10 MG TABLET PO (19:25)
[2021-10-04] MEDS: SENNOSIDES 1 TAB TABLET PO (19:25)
[2021-10-04 23:00] VITALS: TEMP 36; O2SAT 90
--- NOTE | 2021-10-05 03:13 | PC.NURSE ---
Week #3---care plan problems #30-39 reviewed. No changes made. Nothing added to temporary care plan. Toilets self during the noc. Wears a pullup which she manages herself. Does own pericares. Skin---no issues at this time.
[2021-10-05] MEDS: ACETAMINOPHEN 500 MG TABLET 1000 MG PO ×3 (07:03→19:50)
[2021-10-05] MEDS: OMEPRAZOLE 20 MG CAPSULE DR PO (07:03)
[2021-10-05] MEDS: ASPIRIN 81 MG TABLET EC PO (07:04)
[2021-10-05] MEDS: FOLIC ACID 800 MCG 1 EACH PO (07:04)
[2021-10-05] MEDS: VENLAFAXINE ER 75 MG CAPSULE PO (07:04)
[2021-10-05] MEDS: METOPROLOL SUCCINATE (XL) 50 MG TAB PO (07:04)
[2021-10-05] MEDS: VENLAFAXINE HCL ER 37.5 MG CAPSULE PO (07:04)
[2021-10-05] MEDS: ALBUTEROL INHALER 2 PUFF IH ×4 (07:04→19:50)
[2021-10-05] MEDS: CARBOXYMETHYLCELLULOSE (REFRESH PLUS) TEARS 1 DROP EYE-BOTH ×4 (07:04→19:50)
[2021-10-05] MEDS: OCUVITE TABLET 2 TAB PO ×2 (07:04→16:17)
[2021-10-05] MEDS: FUROSEMIDE 40 MG TABLET 60 MG PO (08:51)
[2021-10-05] MEDS: POTASSIUM CHLORIDE 10 MEQ CAPSULE ER PO (08:51)
[2021-10-05] MEDS: METFORMIN 1,000 MG TABLET 1000 MG PO ×2 (08:51→17:16)
[2021-10-05 10:31] VITALS: TEMP 36.6; O2SAT 95
[2021-10-05] MEDS: NICOTINE 4 MG GUM BUCCAL ×2 (10:44→17:16)
[2021-10-05] MEDS: OXYCODONE 5 MG TABLET PO (12:06)
[2021-10-05 16:38] VITALS: BP 108/54; PULSE 79; RESP 18; TEMP 37.1; O2SAT 96
--- NOTE | 2021-10-05 18:29 | PC.NURSE ---
Week #3: Vital signs reviewed with in normal limits. Skin summary: no new skin concerns. Temporary care plan reviewed: no change. Care plan 30-39 reviewed: no change. Resident is continent of bowel and bladder. Does wear pull-ups for break through incontinence. Is independent in the bathroom.
[2021-10-05] MEDS: ATORVASTATIN 10 MG TABLET PO (19:50)
[2021-10-05] MEDS: SENNOSIDES 1 TAB TABLET PO (19:50)
[2021-10-05] MEDS: TRAZODONE HCL 50 MG TABLET PO (19:50)
[2021-10-05 21:19] VITALS: TEMP 37.1; O2SAT 96
[2021-10-05 23:00] VITALS: TEMP 36.9; O2SAT 96
[2021-10-06] MEDS: VENLAFAXINE ER 75 MG CAPSULE PO (07:12)
[2021-10-06] MEDS: VENLAFAXINE HCL ER 37.5 MG CAPSULE PO (07:12)
[2021-10-06] MEDS: OMEPRAZOLE 20 MG CAPSULE DR PO (07:12)
[2021-10-06] MEDS: ASPIRIN 81 MG TABLET EC PO (07:12)
[2021-10-06] MEDS: ALBUTEROL INHALER 2 PUFF IH ×4 (07:12→19:40)
[2021-10-06] MEDS: ACETAMINOPHEN 500 MG TABLET 1000 MG PO ×3 (07:12→19:39)
[2021-10-06] MEDS: METOPROLOL SUCCINATE (XL) 50 MG TAB PO (07:12)
[2021-10-06] MEDS: CARBOXYMETHYLCELLULOSE (REFRESH PLUS) TEARS 1 DROP EYE-BOTH ×4 (07:14→19:40)
[2021-10-06] MEDS: FOLIC ACID 800 MCG 1 EACH PO (07:14)
[2021-10-06] MEDS: OCUVITE TABLET 2 TAB PO ×2 (07:14→15:44)
[2021-10-06] MEDS: NICOTINE 4 MG GUM BUCCAL ×2 (07:40→17:30)
[2021-10-06] MEDS: FUROSEMIDE 40 MG TABLET 60 MG PO (08:31)
[2021-10-06] MEDS: METFORMIN 1,000 MG TABLET 1000 MG PO ×2 (08:31→17:30)
[2021-10-06] MEDS: POTASSIUM CHLORIDE 10 MEQ CAPSULE ER PO (08:31)
[2021-10-06 09:58] VITALS: TEMP 36.4; O2SAT 94; BMI 19.3
[2021-10-06 17:17] VITALS: TEMP 36.9; O2SAT 96
[2021-10-06] MEDS: ATORVASTATIN 10 MG TABLET PO (19:40)
[2021-10-06] MEDS: TRAZODONE HCL 50 MG TABLET PO (19:40)
[2021-10-06] MEDS: SENNOSIDES 1 TAB TABLET PO (19:40)
[2021-10-06 23:00] VITALS: TEMP 36.2; O2SAT 94
[2021-10-07] MEDS: ASPIRIN 81 MG TABLET EC PO (07:11)
[2021-10-07] MEDS: ACETAMINOPHEN 500 MG TABLET 1000 MG PO ×3 (07:11→20:11)
[2021-10-07] MEDS: VENLAFAXINE HCL ER 37.5 MG CAPSULE PO (07:11)
[2021-10-07] MEDS: OMEPRAZOLE 20 MG CAPSULE DR PO (07:11)
[2021-10-07] MEDS: VENLAFAXINE ER 75 MG CAPSULE PO (07:11)
[2021-10-07] MEDS: ALBUTEROL INHALER 2 PUFF IH ×4 (07:11→20:11)
[2021-10-07] MEDS: OCUVITE TABLET 2 TAB PO ×2 (07:12→16:04)
[2021-10-07] MEDS: METOPROLOL SUCCINATE (XL) 50 MG TAB PO (07:12)
[2021-10-07] MEDS: CARBOXYMETHYLCELLULOSE (REFRESH PLUS) TEARS 1 DROP EYE-BOTH ×4 (07:12→20:11)
[2021-10-07] MEDS: METFORMIN 1,000 MG TABLET 1000 MG PO ×2 (08:45→17:28)
[2021-10-07] MEDS: FUROSEMIDE 40 MG TABLET 60 MG PO (08:45)
[2021-10-07] MEDS: POTASSIUM CHLORIDE 10 MEQ CAPSULE ER PO (08:46)
[2021-10-07] MEDS: NICOTINE 4 MG GUM BUCCAL ×2 (08:46→17:29)
[2021-10-07] MEDS: ATORVASTATIN 10 MG TABLET PO (20:11)
[2021-10-07] MEDS: TRAZODONE HCL 50 MG TABLET PO (20:11)
[2021-10-07] MEDS: SENNOSIDES 1 TAB TABLET PO (20:11)
[2021-10-07 21:38] VITALS: TEMP 36.6; O2SAT 96
[2021-10-07 23:00] VITALS: TEMP 36.3; O2SAT 93
[2021-10-08] MEDS: OMEPRAZOLE 20 MG CAPSULE DR PO (06:40)
[2021-10-08 07:00] VITALS: TEMP 36.6; O2SAT 96
[2021-10-08] MEDS: ACETAMINOPHEN 500 MG TABLET 1000 MG PO ×3 (08:39→20:35)
[2021-10-08] MEDS: CARBOXYMETHYLCELLULOSE (REFRESH PLUS) TEARS 1 DROP EYE-BOTH ×4 (08:40→20:36)
[2021-10-08] MEDS: ASPIRIN 81 MG TABLET EC PO (08:40)
[2021-10-08] MEDS: POTASSIUM CHLORIDE 10 MEQ CAPSULE ER PO (08:40)
[2021-10-08] MEDS: FOLIC ACID 800 MCG 1 EACH PO (08:40)
[2021-10-08] MEDS: FUROSEMIDE 40 MG TABLET 60 MG PO (08:40)
[2021-10-08] MEDS: METOPROLOL SUCCINATE (XL) 50 MG TAB PO (08:40)
[2021-10-08] MEDS: VENLAFAXINE HCL ER 37.5 MG CAPSULE PO (08:40)
[2021-10-08] MEDS: ALBUTEROL INHALER 2 PUFF IH ×4 (08:40→20:35)
[2021-10-08] MEDS: VENLAFAXINE ER 75 MG CAPSULE PO (08:40)
[2021-10-08] MEDS: OCUVITE TABLET 2 TAB PO ×2 (08:40→16:03)
[2021-10-08] MEDS: METFORMIN 1,000 MG TABLET 1000 MG PO ×2 (08:40→17:32)
[2021-10-08] MEDS: NICOTINE 4 MG GUM BUCCAL ×2 (12:16→17:32)
[2021-10-08] MEDS: ATORVASTATIN 10 MG TABLET PO (20:35)
[2021-10-08] MEDS: TRAZODONE HCL 50 MG TABLET PO (20:36)
[2021-10-08] MEDS: SENNOSIDES 1 TAB TABLET PO (20:36)
[2021-10-08 21:34] VITALS: TEMP 36.9; O2SAT 96
[2021-10-08 23:00] VITALS: TEMP 36.2; O2SAT 90
[2021-10-09] MEDS: VENLAFAXINE ER 75 MG CAPSULE PO (07:06)
[2021-10-09] MEDS: OMEPRAZOLE 20 MG CAPSULE DR PO (07:06)
[2021-10-09] MEDS: ASPIRIN 81 MG TABLET EC PO (07:06)
[2021-10-09] MEDS: ALBUTEROL INHALER 2 PUFF IH ×4 (07:06→19:48)
[2021-10-09] MEDS: ACETAMINOPHEN 500 MG TABLET 1000 MG PO ×3 (07:06→19:48)
[2021-10-09] MEDS: VENLAFAXINE HCL ER 37.5 MG CAPSULE PO (07:06)
[2021-10-09] MEDS: METOPROLOL SUCCINATE (XL) 50 MG TAB PO (07:07)
[2021-10-09] MEDS: CARBOXYMETHYLCELLULOSE (REFRESH PLUS) TEARS 1 DROP EYE-BOTH ×4 (07:07→19:47)
[2021-10-09] MEDS: FOLIC ACID 800 MCG 1 EACH PO (07:07)
[2021-10-09] MEDS: OCUVITE TABLET 2 TAB PO ×2 (07:07→16:15)
[2021-10-09] MEDS: FUROSEMIDE 40 MG TABLET 60 MG PO (08:34)
[2021-10-09] MEDS: METFORMIN 1,000 MG TABLET 1000 MG PO ×2 (08:34→17:27)
[2021-10-09] MEDS: POTASSIUM CHLORIDE 10 MEQ CAPSULE ER PO (08:34)
[2021-10-09] MEDS: NICOTINE 4 MG GUM BUCCAL ×2 (08:34→17:28)
[2021-10-09 13:28] VITALS: TEMP 36.3; O2SAT 94
[2021-10-09 17:07] VITALS: TEMP 36.4; O2SAT 95
[2021-10-09] MEDS: TRAZODONE HCL 50 MG TABLET PO (19:48)
[2021-10-09] MEDS: ATORVASTATIN 10 MG TABLET PO (19:48)
[2021-10-09] MEDS: SENNOSIDES 1 TAB TABLET PO (19:48)
[2021-10-09 23:00] VITALS: TEMP 36.6; O2SAT 95
[2021-10-10] MEDS: OMEPRAZOLE 20 MG CAPSULE DR PO (07:25)
[2021-10-10] MEDS: ACETAMINOPHEN 500 MG TABLET 1000 MG PO ×3 (07:25→19:29)
[2021-10-10] MEDS: ASPIRIN 81 MG TABLET EC PO (07:26)
[2021-10-10] MEDS: VENLAFAXINE ER 75 MG CAPSULE PO (07:26)
[2021-10-10] MEDS: ALBUTEROL INHALER 2 PUFF IH ×4 (07:26→19:29)
[2021-10-10] MEDS: VENLAFAXINE HCL ER 37.5 MG CAPSULE PO (07:26)
[2021-10-10] MEDS: FUROSEMIDE 40 MG TABLET 60 MG PO (07:27)
[2021-10-10] MEDS: METFORMIN 1,000 MG TABLET 1000 MG PO ×2 (07:27→17:15)
[2021-10-10] MEDS: FOLIC ACID 800 MCG 1 EACH PO (07:27)
[2021-10-10] MEDS: METOPROLOL SUCCINATE (XL) 50 MG TAB PO (07:27)
[2021-10-10] MEDS: OCUVITE TABLET 2 TAB PO ×2 (07:28→15:34)
[2021-10-10] MEDS: POTASSIUM CHLORIDE 10 MEQ CAPSULE ER PO (07:28)
[2021-10-10] MEDS: CARBOXYMETHYLCELLULOSE (REFRESH PLUS) TEARS 1 DROP EYE-BOTH ×4 (07:30→19:29)
[2021-10-10] MEDS: NICOTINE 4 MG GUM BUCCAL ×2 (07:35→17:17)
[2021-10-10 12:51] VITALS: TEMP 36.3; O2SAT 96
[2021-10-10 14:34] LABS: SARS PCR* Negative SARS-CoV-2 (Negative)
[2021-10-10 15:00] VITALS: TEMP 36.6; O2SAT 96
[2021-10-10] MEDS: OXYCODONE 5 MG TABLET PO (18:55)
[2021-10-10] MEDS: ATORVASTATIN 10 MG TABLET PO (19:29)
[2021-10-10] MEDS: SENNOSIDES 1 TAB TABLET PO (19:29)
[2021-10-10] MEDS: TRAZODONE HCL 50 MG TABLET PO (19:29)
[2021-10-10 23:00] VITALS: TEMP 36.1; O2SAT 92
[2021-10-11] MEDS: OMEPRAZOLE 20 MG CAPSULE DR PO (06:43)
[2021-10-11 07:00] VITALS: TEMP 36.7; O2SAT 95
[2021-10-11] MEDS: FUROSEMIDE 40 MG TABLET 60 MG PO (07:50)
[2021-10-11] MEDS: ASPIRIN 81 MG TABLET EC PO (07:50)
[2021-10-11] MEDS: VENLAFAXINE HCL ER 37.5 MG CAPSULE PO (07:50)
[2021-10-11] MEDS: ACETAMINOPHEN 500 MG TABLET 1000 MG PO ×3 (07:50→19:44)
[2021-10-11] MEDS: ALBUTEROL INHALER 2 PUFF IH ×4 (07:50→19:44)
[2021-10-11] MEDS: VENLAFAXINE ER 75 MG CAPSULE PO (07:50)
[2021-10-11] MEDS: METFORMIN 1,000 MG TABLET 1000 MG PO ×2 (07:51→17:30)
[2021-10-11] MEDS: CARBOXYMETHYLCELLULOSE (REFRESH PLUS) TEARS 1 DROP EYE-BOTH ×4 (07:51→19:44)
[2021-10-11] MEDS: OCUVITE TABLET 2 TAB PO ×2 (07:51→16:18)
[2021-10-11] MEDS: POTASSIUM CHLORIDE 10 MEQ CAPSULE ER PO (07:51)
[2021-10-11] MEDS: FOLIC ACID 800 MCG 1 EACH PO (07:51)
[2021-10-11] MEDS: METOPROLOL SUCCINATE (XL) 50 MG TAB PO (07:51)
--- NOTE | 2021-10-11 10:10 | PC.NURSE ---
Week #4: Care plan problems 40+ and temporary care plan reviewed. No changes made. Nothing added to temporary care plan. She does communicate needs and use the call light.Wears glasses. Has hearing difficulty in some environment, uses no hearing device. Memory intact. Chronic health condition stable. Is able to self administer medications. Nurse can leave meds with her and check they are taken. Mood/Behavior: No issues. Continues on Trazodone 50mg @ HS, Effexor 112.5mg daily with no adverse effects noted. No change in medications.
[2021-10-11] MEDS: MAG HYDROX/ALUMINUM HYD/SIMETH 30 ML ORAL.SUSP 15 ML PO (10:19)
--- NOTE | 2021-10-11 10:21 | PC.NURSE ---
Addendum entered by Kitty Schuster LPN 10/12/21 13:23: Was given PRN Maalox per orders obtained relief after 20min's ambulated back to room. Original Note: CP-Resident ambulated up to nurses desk stated My chest is hurting right here pointed to left side of chest area denies pain anywhere else, color pale per usual, no problems ambulating, BP 131/56 R-18 T-98.7 P- 86 SATS 98%. currently sitting at desk with Occ's C/O CP It comes and goes will con't to monitor.
[2021-10-11 17:27] VITALS: TEMP 36.1; O2SAT 97
[2021-10-11] MEDS: NICOTINE 4 MG GUM BUCCAL (17:30)
[2021-10-11] MEDS: TRAZODONE HCL 50 MG TABLET PO (19:44)
[2021-10-11] MEDS: SENNOSIDES 1 TAB TABLET PO (19:44)
[2021-10-11] MEDS: ATORVASTATIN 10 MG TABLET PO (19:44)
[2021-10-11 23:00] VITALS: TEMP 35.9; O2SAT 91
--- NOTE | 2021-10-12 03:41 | PC.NURSE ---
Week #4---care plan problems #40+ reviewed. No changes made. Nothing added to temporary care plan. Can use call light for needs. No changes noted in hearing, vision, or orientation. No behavior problems at noc. Sleeps well. Continues to receive Trazadone 50 mg at HS and Effexor Xr 112.5 mg qd with no adverse effects noted.
[2021-10-12] MEDS: VENLAFAXINE HCL ER 37.5 MG CAPSULE PO (07:11)
[2021-10-12] MEDS: VENLAFAXINE ER 75 MG CAPSULE PO (07:11)
[2021-10-12] MEDS: ALBUTEROL INHALER 2 PUFF IH ×4 (07:11→19:55)
[2021-10-12] MEDS: ACETAMINOPHEN 500 MG TABLET 1000 MG PO ×3 (07:11→19:55)
[2021-10-12] MEDS: ASPIRIN 81 MG TABLET EC PO (07:11)
[2021-10-12] MEDS: OMEPRAZOLE 20 MG CAPSULE DR PO (07:11)
[2021-10-12] MEDS: CARBOXYMETHYLCELLULOSE (REFRESH PLUS) TEARS 1 DROP EYE-BOTH ×4 (07:12→19:55)
[2021-10-12] MEDS: METOPROLOL SUCCINATE (XL) 50 MG TAB PO (07:12)
[2021-10-12] MEDS: FOLIC ACID 800 MCG 1 EACH PO (07:12)
[2021-10-12] MEDS: OCUVITE TABLET 2 TAB PO ×2 (07:12→15:46)
[2021-10-12] MEDS: METFORMIN 1,000 MG TABLET 1000 MG PO ×2 (08:46→17:09)
[2021-10-12] MEDS: FUROSEMIDE 40 MG TABLET 60 MG PO (08:46)
[2021-10-12] MEDS: POTASSIUM CHLORIDE 10 MEQ CAPSULE ER PO (08:46)
[2021-10-12] MEDS: NICOTINE 4 MG GUM BUCCAL ×2 (08:50→17:09)
[2021-10-12 10:51] VITALS: BP 154/67; PULSE 74; RESP 20; TEMP 36.4; O2SAT 94
[2021-10-12] MEDS: TRAZODONE HCL 50 MG TABLET PO (19:55)
[2021-10-12] MEDS: ATORVASTATIN 10 MG TABLET PO (19:55)
[2021-10-12] MEDS: SENNOSIDES 1 TAB TABLET PO (19:55)
[2021-10-12 21:07] VITALS: TEMP 36.2; O2SAT 93
[2021-10-12 23:00] VITALS: TEMP 35.7; O2SAT 92
[2021-10-13] MEDS: ALBUTEROL INHALER 2 PUFF IH ×4 (07:04→19:35)
[2021-10-13] MEDS: OMEPRAZOLE 20 MG CAPSULE DR PO (07:04)
[2021-10-13] MEDS: ASPIRIN 81 MG TABLET EC PO (07:04)
[2021-10-13] MEDS: VENLAFAXINE ER 75 MG CAPSULE PO (07:04)
[2021-10-13] MEDS: VENLAFAXINE HCL ER 37.5 MG CAPSULE PO (07:04)
[2021-10-13] MEDS: ACETAMINOPHEN 500 MG TABLET 1000 MG PO ×3 (07:04→19:35)
[2021-10-13] MEDS: CARBOXYMETHYLCELLULOSE (REFRESH PLUS) TEARS 1 DROP EYE-BOTH ×4 (07:05→19:35)
[2021-10-13] MEDS: FOLIC ACID 800 MCG 1 EACH PO (07:05)
[2021-10-13] MEDS: METOPROLOL SUCCINATE (XL) 50 MG TAB PO (07:05)
[2021-10-13] MEDS: OCUVITE TABLET 2 TAB PO ×2 (07:05→16:14)
[2021-10-13] MEDS: NICOTINE 4 MG GUM BUCCAL ×2 (07:43→17:17)
[2021-10-13] MEDS: METFORMIN 1,000 MG TABLET 1000 MG PO ×2 (08:35→17:17)
[2021-10-13] MEDS: FUROSEMIDE 40 MG TABLET 60 MG PO (08:35)
[2021-10-13] MEDS: POTASSIUM CHLORIDE 10 MEQ CAPSULE ER PO (08:35)
[2021-10-13 10:06] VITALS: TEMP 36.2; O2SAT 96; BMI 19.7
[2021-10-13] MEDS: SENNOSIDES 1 TAB TABLET PO (19:35)
[2021-10-13] MEDS: TRAZODONE HCL 50 MG TABLET PO (19:35)
[2021-10-13] MEDS: ATORVASTATIN 10 MG TABLET PO (19:35)
[2021-10-13 21:45] VITALS: TEMP 36.6; O2SAT 96
[2021-10-13 23:00] VITALS: TEMP 36.9; O2SAT 93
[2021-10-14] MEDS: OMEPRAZOLE 20 MG CAPSULE DR PO (06:41)
[2021-10-14 07:00] VITALS: TEMP 36.3; O2SAT 95
[2021-10-14] MEDS: VENLAFAXINE ER 75 MG CAPSULE PO (07:15)
[2021-10-14] MEDS: FUROSEMIDE 40 MG TABLET 60 MG PO (07:15)
[2021-10-14] MEDS: VENLAFAXINE HCL ER 37.5 MG CAPSULE PO (07:15)
[2021-10-14] MEDS: ALBUTEROL INHALER 2 PUFF IH ×4 (07:15→19:27)
[2021-10-14] MEDS: ASPIRIN 81 MG TABLET EC PO (07:15)
[2021-10-14] MEDS: METFORMIN 1,000 MG TABLET 1000 MG PO ×2 (07:15→17:03)
[2021-10-14] MEDS: ACETAMINOPHEN 500 MG TABLET 1000 MG PO ×3 (07:15→19:27)
[2021-10-14] MEDS: CARBOXYMETHYLCELLULOSE (REFRESH PLUS) TEARS 1 DROP EYE-BOTH ×4 (07:16→19:27)
[2021-10-14] MEDS: METOPROLOL SUCCINATE (XL) 50 MG TAB PO (07:16)
[2021-10-14] MEDS: OCUVITE TABLET 2 TAB PO ×2 (07:16→16:24)
[2021-10-14] MEDS: POTASSIUM CHLORIDE 10 MEQ CAPSULE ER PO (07:16)
[2021-10-14] MEDS: NICOTINE 4 MG GUM BUCCAL ×2 (10:04→17:03)
--- NOTE | 2021-10-14 13:09 | PC.NURSE ---
Addendum entered by Lacey Sanches RN 10/21/21 06:26: Note below is 72 re-cert visit. Original Note: OUTSIDE SOLAR SALES CONSULTANT Visit & New order: Seen by Rose DWYER in relation to resident complains of intermittent chest pain. 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 Shannon DAVILA, notified and updated. She will make the necessary arrangements and appointment.
[2021-10-14] MEDS: SENNOSIDES 1 TAB TABLET PO (19:27)
[2021-10-14] MEDS: ATORVASTATIN 10 MG TABLET PO (19:27)
[2021-10-14] MEDS: TRAZODONE HCL 50 MG TABLET PO (19:28)
[2021-10-14 20:50] VITALS: TEMP 36.2; O2SAT 95
[2021-10-14 23:00] VITALS: TEMP 36.3; O2SAT 96
[2021-10-15 07:00] VITALS: TEMP 36.3; O2SAT 96
[2021-10-15] MEDS: ALBUTEROL INHALER 2 PUFF IH ×4 (07:09→19:20)
[2021-10-15] MEDS: VENLAFAXINE HCL ER 37.5 MG CAPSULE PO (07:09)
[2021-10-15] MEDS: ACETAMINOPHEN 500 MG TABLET 1000 MG PO ×3 (07:09→19:20)
[2021-10-15] MEDS: ASPIRIN 81 MG TABLET EC PO (07:09)
[2021-10-15] MEDS: OMEPRAZOLE 20 MG CAPSULE DR PO (07:09)
[2021-10-15] MEDS: VENLAFAXINE ER 75 MG CAPSULE PO (07:09)
[2021-10-15] MEDS: FOLIC ACID 800 MCG 1 EACH PO (07:10)
[2021-10-15] MEDS: METOPROLOL SUCCINATE (XL) 50 MG TAB PO (07:10)
[2021-10-15] MEDS: OCUVITE TABLET 2 TAB PO ×2 (07:10→15:27)
[2021-10-15] MEDS: CARBOXYMETHYLCELLULOSE (REFRESH PLUS) TEARS 1 DROP EYE-BOTH ×4 (07:11→19:20)
[2021-10-15] MEDS: NICOTINE 4 MG GUM BUCCAL ×2 (07:15→17:05)
[2021-10-15] MEDS: FUROSEMIDE 40 MG TABLET 60 MG PO (08:37)
[2021-10-15] MEDS: METFORMIN 1,000 MG TABLET 1000 MG PO ×2 (08:38→17:05)
[2021-10-15] MEDS: POTASSIUM CHLORIDE 10 MEQ CAPSULE ER PO (08:38)
[2021-10-15 16:56] VITALS: TEMP 36.4; O2SAT 95
[2021-10-15] MEDS: ATORVASTATIN 10 MG TABLET PO (19:20)
[2021-10-15] MEDS: SENNOSIDES 1 TAB TABLET PO (19:20)
[2021-10-15] MEDS: TRAZODONE HCL 50 MG TABLET PO (19:21)
[2021-10-16 00:20] VITALS: TEMP 36.1; O2SAT 92
[2021-10-16] MEDS: OMEPRAZOLE 20 MG CAPSULE DR PO (06:38)
[2021-10-16 07:00] VITALS: TEMP 36.5; O2SAT 93
[2021-10-16] MEDS: NICOTINE 4 MG GUM BUCCAL ×2 (07:30→17:13)
[2021-10-16] MEDS: ACETAMINOPHEN 500 MG TABLET 1000 MG PO ×3 (07:42→19:22)
[2021-10-16] MEDS: OCUVITE TABLET 2 TAB PO ×2 (07:43→16:08)
[2021-10-16] MEDS: ALBUTEROL INHALER 2 PUFF IH ×4 (07:43→19:22)
[2021-10-16] MEDS: METFORMIN 1,000 MG TABLET 1000 MG PO ×2 (07:43→17:12)
[2021-10-16] MEDS: POTASSIUM CHLORIDE 10 MEQ CAPSULE ER PO (07:43)
[2021-10-16] MEDS: METOPROLOL SUCCINATE (XL) 50 MG TAB PO (07:43)
[2021-10-16] MEDS: ASPIRIN 81 MG TABLET EC PO (07:43)
[2021-10-16] MEDS: VENLAFAXINE HCL ER 37.5 MG CAPSULE PO (07:43)
[2021-10-16] MEDS: VENLAFAXINE ER 75 MG CAPSULE PO (07:43)
[2021-10-16] MEDS: CARBOXYMETHYLCELLULOSE (REFRESH PLUS) TEARS 1 DROP EYE-BOTH ×4 (07:43→19:22)
[2021-10-16] MEDS: FUROSEMIDE 40 MG TABLET 60 MG PO (07:43)
[2021-10-16] MEDS: FOLIC ACID 800 MCG 1 EACH PO (07:43)
[2021-10-16 17:17] VITALS: TEMP 36.6; O2SAT 91
[2021-10-16] MEDS: TRAZODONE HCL 50 MG TABLET PO (19:22)
[2021-10-16] MEDS: SENNOSIDES 1 TAB TABLET PO (19:22)
[2021-10-16] MEDS: ATORVASTATIN 10 MG TABLET PO (19:22)
[2021-10-16 23:00] VITALS: TEMP 36.3; O2SAT 96
[2021-10-17] MEDS: OMEPRAZOLE 20 MG CAPSULE DR PO (06:57)
[2021-10-17 07:00] VITALS: TEMP 36.2; O2SAT 95
[2021-10-17] MEDS: CARBOXYMETHYLCELLULOSE (REFRESH PLUS) TEARS 1 DROP EYE-BOTH ×4 (07:05→19:36)
[2021-10-17] MEDS: OCUVITE TABLET 2 TAB PO ×2 (07:05→16:00)
[2021-10-17] MEDS: POTASSIUM CHLORIDE 10 MEQ CAPSULE ER PO (07:05)
[2021-10-17] MEDS: ALBUTEROL INHALER 2 PUFF IH ×4 (07:05→19:36)
[2021-10-17] MEDS: FUROSEMIDE 40 MG TABLET 60 MG PO (07:05)
[2021-10-17] MEDS: METFORMIN 1,000 MG TABLET 1000 MG PO ×2 (07:05→19:36)
[2021-10-17] MEDS: FOLIC ACID 800 MCG 1 EACH PO (07:05)
[2021-10-17] MEDS: VENLAFAXINE ER 75 MG CAPSULE PO (07:05)
[2021-10-17] MEDS: METOPROLOL SUCCINATE (XL) 50 MG TAB PO (07:05)
[2021-10-17] MEDS: ASPIRIN 81 MG TABLET EC PO (07:05)
[2021-10-17] MEDS: ACETAMINOPHEN 500 MG TABLET 1000 MG PO ×3 (07:05→19:36)
[2021-10-17] MEDS: VENLAFAXINE HCL ER 37.5 MG CAPSULE PO (07:05)
--- NOTE | 2021-10-17 11:24 | PC.NURSE ---
COVID OUTBREAK TESTING: Resident provided verbal consent for outbreak COVID testing. Resident is currently asymptomatic. Resident/family will be notified only if resident is positive.
[2021-10-17 13:13] LABS: SARS PCR* Negative SARS-CoV-2 (Negative)
[2021-10-17 15:00] VITALS: TEMP 36.6; O2SAT 95
--- NOTE | 2021-10-17 15:17 | PC.NURSE ---
EKG was completed per written order by Dr. Rose. Placed in FIRE SPRINKLER FITTER book for provider review. Discussed stress test with resident, she would like to know Buffy Briones NP's thoughts on having this done and if she thinks it is a good idea for her to do this before we schedule. Will update FIRE SPRINKLER FITTER tomorrow when she is here.
[2021-10-17] MEDS: ATORVASTATIN 10 MG TABLET PO (19:36)
[2021-10-17] MEDS: TRAZODONE HCL 50 MG TABLET PO (19:36)
[2021-10-17] MEDS: SENNOSIDES 1 TAB TABLET PO (19:36)
[2021-10-17] MEDS: NICOTINE 4 MG GUM BUCCAL (19:37)
[2021-10-17 23:00] VITALS: TEMP 36.1; O2SAT 92
[2021-10-18] MEDS: OMEPRAZOLE 20 MG CAPSULE DR PO (07:07)
[2021-10-18] MEDS: ACETAMINOPHEN 500 MG TABLET 1000 MG PO ×3 (07:07→19:46)
[2021-10-18] MEDS: METOPROLOL SUCCINATE (XL) 50 MG TAB PO (07:07)
[2021-10-18] MEDS: VENLAFAXINE HCL ER 37.5 MG CAPSULE PO (07:07)
[2021-10-18] MEDS: ALBUTEROL INHALER 2 PUFF IH ×4 (07:07→19:46)
[2021-10-18] MEDS: ASPIRIN 81 MG TABLET EC PO (07:07)
[2021-10-18] MEDS: VENLAFAXINE ER 75 MG CAPSULE PO (07:07)
[2021-10-18] MEDS: CARBOXYMETHYLCELLULOSE (REFRESH PLUS) TEARS 1 DROP EYE-BOTH ×4 (07:08→19:46)
[2021-10-18] MEDS: FOLIC ACID 800 MCG 1 EACH PO (07:08)
[2021-10-18] MEDS: OCUVITE TABLET 2 TAB PO ×2 (07:08→16:41)
[2021-10-18] MEDS: METFORMIN 1,000 MG TABLET 1000 MG PO ×2 (08:20→17:08)
[2021-10-18] MEDS: FUROSEMIDE 40 MG TABLET 60 MG PO (08:20)
[2021-10-18] MEDS: POTASSIUM CHLORIDE 10 MEQ CAPSULE ER PO (08:20)
[2021-10-18] MEDS: NICOTINE 4 MG GUM BUCCAL ×2 (08:21→17:09)
[2021-10-18 10:17] VITALS: TEMP 36.4; O2SAT 96
[2021-10-18 18:47] VITALS: TEMP 36.6; O2SAT 95
[2021-10-18] MEDS: ATORVASTATIN 10 MG TABLET PO (19:46)
[2021-10-18] MEDS: SENNOSIDES 1 TAB TABLET PO (19:46)
[2021-10-18] MEDS: TRAZODONE HCL 50 MG TABLET PO (19:46)
[2021-10-18 23:00] VITALS: TEMP 36.2; O2SAT 91
[2021-10-19] MEDS: OMEPRAZOLE 20 MG CAPSULE DR PO (07:24)
[2021-10-19] MEDS: VENLAFAXINE ER 75 MG CAPSULE PO (07:25)
[2021-10-19] MEDS: ACETAMINOPHEN 500 MG TABLET 1000 MG PO ×3 (07:25→19:33)
[2021-10-19] MEDS: FUROSEMIDE 40 MG TABLET 60 MG PO (07:25)
[2021-10-19] MEDS: VENLAFAXINE HCL ER 37.5 MG CAPSULE PO (07:25)
[2021-10-19] MEDS: ASPIRIN 81 MG TABLET EC PO (07:25)
[2021-10-19] MEDS: METFORMIN 1,000 MG TABLET 1000 MG PO ×2 (07:26→17:17)
[2021-10-19] MEDS: METOPROLOL SUCCINATE (XL) 50 MG TAB PO (07:26)
[2021-10-19] MEDS: OCUVITE TABLET 2 TAB PO ×2 (07:26→16:18)
[2021-10-19] MEDS: FOLIC ACID 800 MCG 1 EACH PO (07:26)
[2021-10-19] MEDS: POTASSIUM CHLORIDE 10 MEQ CAPSULE ER PO (07:27)
[2021-10-19] MEDS: CARBOXYMETHYLCELLULOSE (REFRESH PLUS) TEARS 1 DROP EYE-BOTH ×4 (07:27→19:33)
[2021-10-19] MEDS: ALBUTEROL INHALER 2 PUFF IH ×4 (07:28→19:33)
[2021-10-19] MEDS: NICOTINE 4 MG GUM BUCCAL ×2 (07:34→17:17)
[2021-10-19 09:17] VITALS: TEMP 36.2; O2SAT 93
[2021-10-19 16:37] VITALS: BP 92/58; PULSE 88; RESP 18; TEMP 36.6; O2SAT 95
[2021-10-19] MEDS: TRAZODONE HCL 50 MG TABLET PO (19:33)
[2021-10-19] MEDS: ATORVASTATIN 10 MG TABLET PO (19:33)
[2021-10-19] MEDS: SENNOSIDES 1 TAB TABLET PO (19:33)
[2021-10-19 21:37] VITALS: TEMP 36.6; O2SAT 95
[2021-10-19 23:00] VITALS: TEMP 36.6; O2SAT 95
[2021-10-20] MEDS: ALBUTEROL INHALER 2 PUFF IH ×4 (07:04→19:37)
[2021-10-20] MEDS: OMEPRAZOLE 20 MG CAPSULE DR PO (07:04)
[2021-10-20] MEDS: ACETAMINOPHEN 500 MG TABLET 1000 MG PO ×3 (07:04→19:38)
[2021-10-20] MEDS: FOLIC ACID 800 MCG 1 EACH PO (07:05)
[2021-10-20] MEDS: CARBOXYMETHYLCELLULOSE (REFRESH PLUS) TEARS 1 DROP EYE-BOTH ×4 (07:05→19:39)
[2021-10-20] MEDS: VENLAFAXINE ER 75 MG CAPSULE PO (07:05)
[2021-10-20] MEDS: VENLAFAXINE HCL ER 37.5 MG CAPSULE PO (07:05)
[2021-10-20] MEDS: ASPIRIN 81 MG TABLET EC PO (07:05)
[2021-10-20] MEDS: METOPROLOL SUCCINATE (XL) 50 MG TAB PO (07:05)
[2021-10-20] MEDS: METFORMIN 1,000 MG TABLET 1000 MG PO ×2 (08:40→17:08)
[2021-10-20] MEDS: POTASSIUM CHLORIDE 10 MEQ CAPSULE ER PO (08:40)
[2021-10-20] MEDS: FUROSEMIDE 40 MG TABLET 60 MG PO (08:40)
[2021-10-20] MEDS: OCUVITE TABLET 2 TAB PO ×2 (08:40→15:05)
[2021-10-20 10:55] VITALS: TEMP 36.4; O2SAT 94; BMI 19.5
[2021-10-20] MEDS: NICOTINE 4 MG GUM BUCCAL ×2 (12:29→18:01)
[2021-10-20 18:12] VITALS: TEMP 36.4; O2SAT 96
[2021-10-20] MEDS: SENNOSIDES 1 TAB TABLET PO (19:39)
[2021-10-20] MEDS: ATORVASTATIN 10 MG TABLET PO (19:39)
[2021-10-20] MEDS: TRAZODONE HCL 50 MG TABLET PO (19:39)
[2021-10-20 23:00] VITALS: TEMP 36.2; O2SAT 93
[2021-10-21] MEDS: OMEPRAZOLE 20 MG CAPSULE DR PO (06:46)
[2021-10-21] MEDS: NICOTINE 4 MG GUM BUCCAL ×2 (06:46→17:16)
[2021-10-21 07:00] VITALS: TEMP 36.6; O2SAT 96
[2021-10-21] MEDS: ALBUTEROL INHALER 2 PUFF IH ×4 (07:15→19:35)
[2021-10-21] MEDS: ACETAMINOPHEN 500 MG TABLET 1000 MG PO ×3 (07:15→19:35)
[2021-10-21] MEDS: ASPIRIN 81 MG TABLET EC PO (07:15)
[2021-10-21] MEDS: FUROSEMIDE 40 MG TABLET 60 MG PO (07:15)
[2021-10-21] MEDS: METOPROLOL SUCCINATE (XL) 50 MG TAB PO (07:15)
[2021-10-21] MEDS: METFORMIN 1,000 MG TABLET 1000 MG PO ×2 (07:15→17:16)
[2021-10-21] MEDS: VENLAFAXINE HCL ER 37.5 MG CAPSULE PO (07:15)
[2021-10-21] MEDS: VENLAFAXINE ER 75 MG CAPSULE PO (07:15)
[2021-10-21] MEDS: CARBOXYMETHYLCELLULOSE (REFRESH PLUS) TEARS 1 DROP EYE-BOTH ×4 (07:16→19:35)
[2021-10-21] MEDS: POTASSIUM CHLORIDE 10 MEQ CAPSULE ER PO (07:16)
[2021-10-21] MEDS: OCUVITE TABLET 2 TAB PO ×2 (07:16→16:20)
--- NOTE | 2021-10-21 11:45 | PC.NURSE ---
ECG: Result reviewed by Dr. Rose.
[2021-10-21 18:41] VITALS: TEMP 36.8; O2SAT 96
[2021-10-21] MEDS: ATORVASTATIN 10 MG TABLET PO (19:35)
[2021-10-21] MEDS: SENNOSIDES 1 TAB TABLET PO (19:36)
[2021-10-21] MEDS: TRAZODONE HCL 50 MG TABLET PO (19:36)
[2021-10-22] MEDS: OMEPRAZOLE 20 MG CAPSULE DR PO (06:42)
[2021-10-22] MEDS: NICOTINE 4 MG GUM BUCCAL ×3 (06:46→17:09)
[2021-10-22] MEDS: OCUVITE TABLET 2 TAB PO ×2 (07:40→16:21)
[2021-10-22] MEDS: CARBOXYMETHYLCELLULOSE (REFRESH PLUS) TEARS 1 DROP EYE-BOTH ×4 (07:40→19:30)
[2021-10-22] MEDS: POTASSIUM CHLORIDE 10 MEQ CAPSULE ER PO (07:40)
[2021-10-22] MEDS: METFORMIN 1,000 MG TABLET 1000 MG PO ×2 (07:40→17:09)
[2021-10-22] MEDS: ASPIRIN 81 MG TABLET EC PO (07:40)
[2021-10-22] MEDS: ALBUTEROL INHALER 2 PUFF IH ×4 (07:40→19:30)
[2021-10-22] MEDS: VENLAFAXINE ER 75 MG CAPSULE PO (07:40)
[2021-10-22] MEDS: FUROSEMIDE 40 MG TABLET 60 MG PO (07:40)
[2021-10-22] MEDS: METOPROLOL SUCCINATE (XL) 50 MG TAB PO (07:40)
[2021-10-22] MEDS: VENLAFAXINE HCL ER 37.5 MG CAPSULE PO (07:40)
[2021-10-22] MEDS: FOLIC ACID 800 MCG 1 EACH PO (07:40)
[2021-10-22] MEDS: ACETAMINOPHEN 500 MG TABLET 1000 MG PO ×3 (07:40→19:30)
[2021-10-22] MEDS: SENNOSIDES 1 TAB TABLET PO (19:30)
[2021-10-22] MEDS: ATORVASTATIN 10 MG TABLET PO (19:30)
[2021-10-22] MEDS: TRAZODONE HCL 50 MG TABLET PO (19:31)
[2021-10-22] MEDS: polyethylene glycoL 238 GM BULK BOTTLE 17 GM PO (19:38)
[2021-10-22 21:15] VITALS: TEMP 36.6; O2SAT 96
[2021-10-23] MEDS: OMEPRAZOLE 20 MG CAPSULE DR PO (06:38)
[2021-10-23] MEDS: ASPIRIN 81 MG TABLET EC PO (08:10)
[2021-10-23] MEDS: VENLAFAXINE HCL ER 37.5 MG CAPSULE PO (08:10)
[2021-10-23] MEDS: POTASSIUM CHLORIDE 10 MEQ CAPSULE ER PO (08:10)
[2021-10-23] MEDS: METFORMIN 1,000 MG TABLET 1000 MG PO ×2 (08:10→17:22)
[2021-10-23] MEDS: CARBOXYMETHYLCELLULOSE (REFRESH PLUS) TEARS 1 DROP EYE-BOTH ×4 (08:10→19:46)
[2021-10-23] MEDS: ALBUTEROL INHALER 2 PUFF IH ×4 (08:10→19:46)
[2021-10-23] MEDS: FOLIC ACID 800 MCG 1 EACH PO (08:10)
[2021-10-23] MEDS: OCUVITE TABLET 2 TAB PO ×2 (08:10→15:27)
[2021-10-23] MEDS: VENLAFAXINE ER 75 MG CAPSULE PO (08:10)
[2021-10-23] MEDS: METOPROLOL SUCCINATE (XL) 50 MG TAB PO (08:10)
[2021-10-23] MEDS: ACETAMINOPHEN 500 MG TABLET 1000 MG PO ×3 (08:11→19:46)
[2021-10-23] MEDS: FUROSEMIDE 40 MG TABLET 60 MG PO (08:11)
[2021-10-23] MEDS: OXYCODONE 5 MG TABLET PO (13:00)
[2021-10-23] MEDS: NICOTINE 4 MG GUM BUCCAL (17:26)
[2021-10-23] MEDS: ATORVASTATIN 10 MG TABLET PO (19:46)
[2021-10-23] MEDS: SENNOSIDES 1 TAB TABLET PO (19:46)
[2021-10-23] MEDS: TRAZODONE HCL 50 MG TABLET PO (19:47)
[2021-10-23 20:39] VITALS: TEMP 36.7; O2SAT 96
[2021-10-24] MEDS: OMEPRAZOLE 20 MG CAPSULE DR PO (06:32)
[2021-10-24] MEDS: METFORMIN 1,000 MG TABLET 1000 MG PO ×2 (07:08→17:05)
[2021-10-24] MEDS: ASPIRIN 81 MG TABLET EC PO (07:08)
[2021-10-24] MEDS: ACETAMINOPHEN 500 MG TABLET 1000 MG PO ×3 (07:08→19:34)
[2021-10-24] MEDS: FUROSEMIDE 40 MG TABLET 60 MG PO (07:08)
[2021-10-24] MEDS: FOLIC ACID 800 MCG 1 EACH PO (07:08)
[2021-10-24] MEDS: VENLAFAXINE ER 75 MG CAPSULE PO (07:08)
[2021-10-24] MEDS: METOPROLOL SUCCINATE (XL) 50 MG TAB PO (07:08)
[2021-10-24] MEDS: ALBUTEROL INHALER 2 PUFF IH ×4 (07:08→19:34)
[2021-10-24] MEDS: VENLAFAXINE HCL ER 37.5 MG CAPSULE PO (07:08)
[2021-10-24] MEDS: CARBOXYMETHYLCELLULOSE (REFRESH PLUS) TEARS 1 DROP EYE-BOTH ×4 (07:09→19:33)
[2021-10-24] MEDS: OCUVITE TABLET 2 TAB PO ×2 (07:09→16:06)
[2021-10-24] MEDS: POTASSIUM CHLORIDE 10 MEQ CAPSULE ER PO (07:09)
[2021-10-24] MEDS: NICOTINE 4 MG GUM BUCCAL (17:06)
[2021-10-24 17:16] VITALS: TEMP 37.1; O2SAT 90
[2021-10-24] MEDS: ATORVASTATIN 10 MG TABLET PO (19:34)
[2021-10-24] MEDS: TRAZODONE HCL 50 MG TABLET PO (19:34)
[2021-10-24] MEDS: SENNOSIDES 1 TAB TABLET PO (19:34)
[2021-10-25] MEDS: OMEPRAZOLE 20 MG CAPSULE DR PO (06:31)
[2021-10-25] MEDS: NICOTINE 4 MG GUM BUCCAL ×3 (07:30→20:53)
[2021-10-25] MEDS: METOPROLOL SUCCINATE (XL) 50 MG TAB PO (07:46)
[2021-10-25] MEDS: METFORMIN 1,000 MG TABLET 1000 MG PO ×2 (07:46→17:16)
[2021-10-25] MEDS: VENLAFAXINE ER 75 MG CAPSULE PO (07:46)
[2021-10-25] MEDS: ACETAMINOPHEN 500 MG TABLET 1000 MG PO ×3 (07:46→19:18)
[2021-10-25] MEDS: FUROSEMIDE 40 MG TABLET 60 MG PO (07:46)
[2021-10-25] MEDS: ALBUTEROL INHALER 2 PUFF IH ×4 (07:46→19:18)
[2021-10-25] MEDS: ASPIRIN 81 MG TABLET EC PO (07:46)
[2021-10-25] MEDS: VENLAFAXINE HCL ER 37.5 MG CAPSULE PO (07:46)
[2021-10-25] MEDS: CARBOXYMETHYLCELLULOSE (REFRESH PLUS) TEARS 1 DROP EYE-BOTH ×4 (07:47→19:18)
[2021-10-25] MEDS: FOLIC ACID 800 MCG 1 EACH PO (07:47)
[2021-10-25] MEDS: OCUVITE TABLET 2 TAB PO ×2 (07:47→16:00)
[2021-10-25] MEDS: POTASSIUM CHLORIDE 10 MEQ CAPSULE ER PO (07:47)
[2021-10-25 16:00] VITALS: TEMP 36.6; O2SAT 96
[2021-10-25] MEDS: ATORVASTATIN 10 MG TABLET PO (19:18)
[2021-10-25] MEDS: SENNOSIDES 1 TAB TABLET PO (19:19)
[2021-10-25] MEDS: TRAZODONE HCL 50 MG TABLET PO (19:19)
--- NOTE | 2021-10-26 03:43 | PC.NURSE ---
Week #1---care plan problems #1-19 reviewded. No changes made. Nothing added to temporary care plan. Has covered cup of water at bedside that she drinks from per self. If up early am, will have a cup of coffee. Pain---no c/o's pain at noc this past month. Continues to receive Tylenol 1000 mg tid. Also has order for Oxycodone 5 mg q6h prn.
[2021-10-26] MEDS: OMEPRAZOLE 20 MG CAPSULE DR PO (06:28)
--- NOTE | 2021-10-26 06:48 | PC.NURSE ---
Week #1: Care plan problems 1-19 and temporary care plan reviewed. No changes made. Nothing added to temporary care plan. Resident is independent with dressing, grooming,oral cares and feeding. Will call for assistance as needed. Needs supervision with bathing. Is on regular diet. No problems reported with chewing/swallowing. Receives nourishment for weight maintenance. Will ask snacks of her choice and also has own supply. VS stable. Pain: Has chronic pain controlled with Tylenol 1000mg TID. And also has an order for Oxycodone 5mg Q6H PRN which she has used occasionally last month with relief. Is able to report when having pain.
[2021-10-26] MEDS: METFORMIN 1,000 MG TABLET 1000 MG PO ×2 (07:06→17:14)
[2021-10-26] MEDS: FOLIC ACID 800 MCG 1 EACH PO (07:06)
[2021-10-26] MEDS: ASPIRIN 81 MG TABLET EC PO (07:06)
[2021-10-26] MEDS: ALBUTEROL INHALER 2 PUFF IH ×4 (07:06→19:52)
[2021-10-26] MEDS: VENLAFAXINE ER 75 MG CAPSULE PO (07:06)
[2021-10-26] MEDS: POTASSIUM CHLORIDE 10 MEQ CAPSULE ER PO (07:06)
[2021-10-26] MEDS: METOPROLOL SUCCINATE (XL) 50 MG TAB PO (07:06)
[2021-10-26] MEDS: ACETAMINOPHEN 500 MG TABLET 1000 MG PO ×3 (07:06→19:52)
[2021-10-26] MEDS: VENLAFAXINE HCL ER 37.5 MG CAPSULE PO (07:06)
[2021-10-26] MEDS: FUROSEMIDE 40 MG TABLET 60 MG PO (07:06)
[2021-10-26] MEDS: OCUVITE TABLET 2 TAB PO ×2 (07:06→15:27)
[2021-10-26] MEDS: CARBOXYMETHYLCELLULOSE (REFRESH PLUS) TEARS 1 DROP EYE-BOTH ×4 (07:06→19:52)
[2021-10-26] MEDS: NICOTINE 4 MG GUM BUCCAL ×2 (08:49→17:17)
[2021-10-26 08:59] VITALS: BP 106/59; PULSE 76; RESP 20; TEMP 36.7; O2SAT 95
[2021-10-26 16:00] VITALS: TEMP 36.2; O2SAT 94
[2021-10-26] MEDS: OXYCODONE 5 MG TABLET PO (19:18)
[2021-10-26] MEDS: ATORVASTATIN 10 MG TABLET PO (19:52)
[2021-10-26] MEDS: TRAZODONE HCL 50 MG TABLET PO (19:52)
[2021-10-26] MEDS: SENNOSIDES 1 TAB TABLET PO (19:52)
[2021-10-27] MEDS: OMEPRAZOLE 20 MG CAPSULE DR PO (06:50)
[2021-10-27 07:00] VITALS: BMI 19.5
[2021-10-27] MEDS: OXYCODONE 5 MG TABLET PO ×2 (07:13→19:30)
[2021-10-27] MEDS: NICOTINE 4 MG GUM BUCCAL ×2 (07:14→17:24)
[2021-10-27] MEDS: METFORMIN 1,000 MG TABLET 1000 MG PO ×2 (07:20→17:24)
[2021-10-27] MEDS: FUROSEMIDE 40 MG TABLET 60 MG PO (07:20)
[2021-10-27] MEDS: METOPROLOL SUCCINATE (XL) 50 MG TAB PO (07:20)
[2021-10-27] MEDS: VENLAFAXINE ER 75 MG CAPSULE PO (07:20)
[2021-10-27] MEDS: ASPIRIN 81 MG TABLET EC PO (07:20)
[2021-10-27] MEDS: ACETAMINOPHEN 500 MG TABLET 1000 MG PO ×3 (07:20→19:28)
[2021-10-27] MEDS: VENLAFAXINE HCL ER 37.5 MG CAPSULE PO (07:20)
[2021-10-27] MEDS: ALBUTEROL INHALER 2 PUFF IH ×4 (07:20→19:28)
[2021-10-27] MEDS: FOLIC ACID 800 MCG 1 EACH PO (07:21)
[2021-10-27] MEDS: POTASSIUM CHLORIDE 10 MEQ CAPSULE ER PO (07:21)
[2021-10-27] MEDS: CARBOXYMETHYLCELLULOSE (REFRESH PLUS) TEARS 1 DROP EYE-BOTH ×4 (07:21→19:28)
[2021-10-27] MEDS: OCUVITE TABLET 2 TAB PO ×2 (07:21→15:32)
[2021-10-27 17:04] VITALS: TEMP 36.6; O2SAT 94
[2021-10-27] MEDS: ATORVASTATIN 10 MG TABLET PO (19:28)
[2021-10-27] MEDS: TRAZODONE HCL 50 MG TABLET PO (19:28)
[2021-10-27] MEDS: SENNOSIDES 1 TAB TABLET PO (19:28)
[2021-10-28] MEDS: ACETAMINOPHEN 500 MG TABLET 1000 MG PO ×3 (07:03→19:55)
[2021-10-28] MEDS: ASPIRIN 81 MG TABLET EC PO (07:03)
[2021-10-28] MEDS: ALBUTEROL INHALER 2 PUFF IH ×4 (07:03→19:55)
[2021-10-28] MEDS: OMEPRAZOLE 20 MG CAPSULE DR PO (07:03)
[2021-10-28] MEDS: VENLAFAXINE ER 75 MG CAPSULE PO (07:03)
[2021-10-28] MEDS: VENLAFAXINE HCL ER 37.5 MG CAPSULE PO (07:03)
[2021-10-28] MEDS: CARBOXYMETHYLCELLULOSE (REFRESH PLUS) TEARS 1 DROP EYE-BOTH ×4 (07:04→19:56)
[2021-10-28] MEDS: OCUVITE TABLET 2 TAB PO ×2 (07:04→16:28)
[2021-10-28] MEDS: METOPROLOL SUCCINATE (XL) 50 MG TAB PO (07:04)
[2021-10-28] MEDS: NICOTINE 4 MG GUM BUCCAL ×2 (07:04→17:25)
[2021-10-28] MEDS: POTASSIUM CHLORIDE 10 MEQ CAPSULE ER PO (08:29)
[2021-10-28] MEDS: FUROSEMIDE 40 MG TABLET 60 MG PO (08:29)
[2021-10-28] MEDS: METFORMIN 1,000 MG TABLET 1000 MG PO ×2 (08:29→17:25)
[2021-10-28] MEDS: ATORVASTATIN 10 MG TABLET PO (19:55)
[2021-10-28] MEDS: TRAZODONE HCL 50 MG TABLET PO (19:56)
[2021-10-28] MEDS: SENNOSIDES 1 TAB TABLET PO (19:56)
[2021-10-28 21:08] VITALS: TEMP 36.4; O2SAT 96
[2021-10-29] MEDS: ACETAMINOPHEN 500 MG TABLET 1000 MG PO (07:12)
[2021-10-29] MEDS: VENLAFAXINE ER 75 MG CAPSULE PO (07:12)
[2021-10-29] MEDS: FOLIC ACID 800 MCG 1 EACH PO (07:12)
[2021-10-29] MEDS: OMEPRAZOLE 20 MG CAPSULE DR PO (07:12)
[2021-10-29] MEDS: METOPROLOL SUCCINATE (XL) 50 MG TAB PO (07:12)
[2021-10-29] MEDS: ASPIRIN 81 MG TABLET EC PO (07:12)
[2021-10-29] MEDS: VENLAFAXINE HCL ER 37.5 MG CAPSULE PO (07:12)
[2021-10-29] MEDS: OCUVITE TABLET 2 TAB PO (07:13)
[2021-10-29] MEDS: CARBOXYMETHYLCELLULOSE (REFRESH PLUS) TEARS 1 DROP EYE-BOTH (07:13)
[2021-10-29] MEDS: ALBUTEROL INHALER 2 PUFF IH (08:41)
[2021-10-29] MEDS: POTASSIUM CHLORIDE 10 MEQ CAPSULE ER PO (08:41)
[2021-10-29] MEDS: METFORMIN 1,000 MG TABLET 1000 MG PO (08:41)
[2021-10-29] MEDS: FUROSEMIDE 40 MG TABLET 60 MG PO (08:41)
--- NOTE | 2021-10-29 10:10 | PC.NURSE ---
Outing: Resident went out with son for overnight stay at son's place. All appropriate medications sent with list of meds. Oxycodone 2 tablets sent per her request.
[2021-10-30] MEDS: OXYCODONE 5 MG TABLET PO ×2 (15:20→21:17)
[2021-10-30] MEDS: ALBUTEROL INHALER 2 PUFF IH ×2 (15:56→19:34)
[2021-10-30] MEDS: CARBOXYMETHYLCELLULOSE (REFRESH PLUS) TEARS 1 DROP EYE-BOTH ×2 (15:57→19:34)
[2021-10-30] MEDS: OCUVITE TABLET 2 TAB PO (15:57)
[2021-10-30 17:03] VITALS: TEMP 36.6; O2SAT 93
[2021-10-30] MEDS: NICOTINE 4 MG GUM BUCCAL (17:23)
[2021-10-30] MEDS: METFORMIN 1,000 MG TABLET 1000 MG PO (17:23)
--- NOTE | 2021-10-30 18:27 | PC.NURSE ---
Status: Resident c/o pain and swelling of R knuckle. Stated it started on Sunday 10/29, denied hitting hand or falling while out with family. R index finger and knuckle swollen, redness noted. Tender to touch, unable to bend finger. Denies tingling or numbness at site. PRN oxycodone given with some relief and ice applied. Note left for RESTAURANT SERVER to review sx. Resident stated her father had gout that affected his hands.
[2021-10-30] MEDS: ACETAMINOPHEN 500 MG TABLET 1000 MG PO (19:33)
[2021-10-30] MEDS: ATORVASTATIN 10 MG TABLET PO (19:34)
[2021-10-30] MEDS: SENNOSIDES 1 TAB TABLET PO (19:34)
[2021-10-30] MEDS: TRAZODONE HCL 50 MG TABLET PO (19:34)
[2021-10-31] MEDS: OXYCODONE 5 MG TABLET PO ×3 (06:33→19:32)
[2021-10-31] MEDS: OMEPRAZOLE 20 MG CAPSULE DR PO (06:36)
[2021-10-31] MEDS: ACETAMINOPHEN 500 MG TABLET 1000 MG PO ×3 (07:41→19:31)
[2021-10-31] MEDS: VENLAFAXINE ER 75 MG CAPSULE PO (07:41)
[2021-10-31] MEDS: OCUVITE TABLET 2 TAB PO ×2 (07:41→16:07)
[2021-10-31] MEDS: METOPROLOL SUCCINATE (XL) 50 MG TAB PO (07:41)
[2021-10-31] MEDS: POTASSIUM CHLORIDE 10 MEQ CAPSULE ER PO (07:41)
[2021-10-31] MEDS: METFORMIN 1,000 MG TABLET 1000 MG PO ×2 (07:41→17:57)
[2021-10-31] MEDS: VENLAFAXINE HCL ER 37.5 MG CAPSULE PO (07:41)
[2021-10-31] MEDS: FOLIC ACID 800 MCG 1 EACH PO (07:41)
[2021-10-31] MEDS: ALBUTEROL INHALER 2 PUFF IH ×4 (07:41→19:31)
[2021-10-31] MEDS: ASPIRIN 81 MG TABLET EC PO (07:41)
[2021-10-31] MEDS: CARBOXYMETHYLCELLULOSE (REFRESH PLUS) TEARS 1 DROP EYE-BOTH ×4 (07:41→19:31)
[2021-10-31] MEDS: FUROSEMIDE 40 MG TABLET 60 MG PO (07:41)
--- NOTE | 2021-10-31 10:35 | CRLHL7_ITS ---
For Patients: As a result of the Century Cures Act, medical imaging exams and procedure reports are released immediately into your electronic medical record. You may view this report before your referring provider. If you have questions, please contact your health care provider. Indication: redness, pain, swelling Technique: Three views right hand Comparison: None Findings: Narrowing and spurring at the DIP joint index finger and DIP joint little finger. Narrowing and spurring at the 1st carpometacarpal joint. Osteopenia. Subcortical cysts of the base of the lunate. No fracture. Mild flexion deformity at the DIP joint index finger. Impression: Multifocal degenerative joint disease. No fracture or erosive changes. Dictated by Eliceo Andre MD @ 10/31/2021 1:33:49 PM (Electronically Signed)
--- NOTE | 2021-10-31 10:39 | PC.NURSE ---
Order: (R) hand X-Ray d/t redness, pain and swelling RBVO by Anselmo DWYER.
[2021-10-31 16:00] VITALS: TEMP 36.7; O2SAT 94
[2021-10-31] MEDS: NICOTINE 4 MG GUM BUCCAL (16:56)
[2021-10-31] MEDS: SENNOSIDES 1 TAB TABLET PO (19:31)
[2021-10-31] MEDS: ATORVASTATIN 10 MG TABLET PO (19:31)
[2021-10-31] MEDS: TRAZODONE HCL 50 MG TABLET PO (19:32)
--- NOTE | 2021-10-31 22:48 | PC.NURSE ---
X-RAY: X-Ray result received. YULIYA Briones called to be notified and updated on findings at 1700. Per RN NEUROSURGICAL, we should continue with administering PRN Oxycodone and apply ice for pain to the affected R-hand until she visits resident tomorrow, 11/01/21. X-Ray findings has been faxed to Anselmo DWYER.
[2021-11-01] MEDS: OMEPRAZOLE 20 MG CAPSULE DR PO (06:41)
[2021-11-01] MEDS: POTASSIUM CHLORIDE 10 MEQ CAPSULE ER PO (07:07)
[2021-11-01] MEDS: FUROSEMIDE 40 MG TABLET 60 MG PO (07:07)
[2021-11-01] MEDS: ASPIRIN 81 MG TABLET EC PO (07:07)
[2021-11-01] MEDS: ACETAMINOPHEN 500 MG TABLET 1000 MG PO ×3 (07:07→20:16)
[2021-11-01] MEDS: METOPROLOL SUCCINATE (XL) 50 MG TAB PO (07:07)
[2021-11-01] MEDS: METFORMIN 1,000 MG TABLET 1000 MG PO ×2 (07:07→17:14)
[2021-11-01] MEDS: FOLIC ACID 800 MCG 1 EACH PO (07:07)
[2021-11-01] MEDS: CARBOXYMETHYLCELLULOSE (REFRESH PLUS) TEARS 1 DROP EYE-BOTH ×4 (07:07→20:16)
[2021-11-01] MEDS: VENLAFAXINE ER 75 MG CAPSULE PO (07:07)
[2021-11-01] MEDS: OCUVITE TABLET 2 TAB PO ×2 (07:07→16:25)
[2021-11-01] MEDS: VENLAFAXINE HCL ER 37.5 MG CAPSULE PO (07:07)
[2021-11-01] MEDS: OXYCODONE 5 MG TABLET PO ×3 (07:07→20:17)
[2021-11-01] MEDS: ALBUTEROL INHALER 2 PUFF IH ×4 (07:07→20:16)
--- NOTE | 2021-11-01 13:37 | PC.NURSE ---
R hand arthritis - X-ray done 10/31 showed arthritis in right hand - causing swelling and pain. YULIYA Baer, reviewed diagnostics and recommended to continue Oxycodone for pain and ice and rest hand to resolve swelling and pain.
[2021-11-01] MEDS: NICOTINE 4 MG GUM BUCCAL (17:14)
[2021-11-01] MEDS: SENNOSIDES 1 TAB TABLET PO (20:16)
[2021-11-01] MEDS: TRAZODONE HCL 50 MG TABLET PO (20:16)
[2021-11-01] MEDS: ATORVASTATIN 10 MG TABLET PO (20:16)
[2021-11-01 21:31] VITALS: TEMP 36.3; O2SAT 94
--- NOTE | 2021-11-02 01:51 | PC.NURSE ---
Week #2: Fall summary: Resident is a low fall risk per the assessment done on 07/07/21. No falls in the last month. Temporary care plan reviewed, Update on 10/31/21 for right hand swelling, x-ray done with no new orders. Care plan reviewed, no change. Resident is transfers independently using a four wheel walker.
[2021-11-02] MEDS: OMEPRAZOLE 20 MG CAPSULE DR PO (06:28)
[2021-11-02] MEDS: VENLAFAXINE ER 75 MG CAPSULE PO (07:07)
[2021-11-02] MEDS: POTASSIUM CHLORIDE 10 MEQ CAPSULE ER PO (07:07)
[2021-11-02] MEDS: METOPROLOL SUCCINATE (XL) 50 MG TAB PO (07:07)
[2021-11-02] MEDS: ASPIRIN 81 MG TABLET EC PO (07:07)
[2021-11-02] MEDS: OCUVITE TABLET 2 TAB PO ×2 (07:07→15:54)
[2021-11-02] MEDS: ALBUTEROL INHALER 2 PUFF IH ×4 (07:07→19:33)
[2021-11-02] MEDS: ACETAMINOPHEN 500 MG TABLET 1000 MG PO ×3 (07:07→19:33)
[2021-11-02] MEDS: FOLIC ACID 800 MCG 1 EACH PO (07:07)
[2021-11-02] MEDS: VENLAFAXINE HCL ER 37.5 MG CAPSULE PO (07:07)
[2021-11-02] MEDS: CARBOXYMETHYLCELLULOSE (REFRESH PLUS) TEARS 1 DROP EYE-BOTH ×4 (07:07→19:34)
[2021-11-02] MEDS: FUROSEMIDE 40 MG TABLET 60 MG PO (07:07)
[2021-11-02] MEDS: METFORMIN 1,000 MG TABLET 1000 MG PO ×2 (07:07→17:24)
[2021-11-02] MEDS: NICOTINE 4 MG GUM BUCCAL ×2 (07:08→17:24)
[2021-11-02] MEDS: OXYCODONE 5 MG TABLET PO ×3 (07:09→19:43)
[2021-11-02 12:18] VITALS: BP 115/64; PULSE 84; RESP 20; TEMP 36.5; O2SAT 96
[2021-11-02 16:00] VITALS: TEMP 36.5; O2SAT 96
[2021-11-02] MEDS: ATORVASTATIN 10 MG TABLET PO (19:33)
[2021-11-02] MEDS: TRAZODONE HCL 50 MG TABLET PO (19:34)
[2021-11-02] MEDS: SENNOSIDES 1 TAB TABLET PO (19:34)
--- NOTE | 2021-11-02 21:09 | PC.NURSE ---
Week # 2: Vital signs reviewed - no new concerns at this time. Care plan problems - and temporary care plan reviewed; no changes made at this time. Resident is total dependent with bed mobility, transfers, positioning in bed/recliner, and ambulates with wheel chair. Falls: Resident remains Low Fall Risk per assessment done on 07/07/21, but no incident reported, noted, or self-reported the past month.
[2021-11-03] MEDS: OMEPRAZOLE 20 MG CAPSULE DR PO (07:13)
[2021-11-03] MEDS: ACETAMINOPHEN 500 MG TABLET 1000 MG PO ×3 (07:14→19:17)
[2021-11-03] MEDS: ASPIRIN 81 MG TABLET EC PO (07:14)
[2021-11-03] MEDS: VENLAFAXINE HCL ER 37.5 MG CAPSULE PO (07:15)
[2021-11-03] MEDS: VENLAFAXINE ER 75 MG CAPSULE PO (07:15)
[2021-11-03] MEDS: FUROSEMIDE 40 MG TABLET 60 MG PO (07:15)
[2021-11-03] MEDS: FOLIC ACID 800 MCG 1 EACH PO (07:16)
[2021-11-03] MEDS: METOPROLOL SUCCINATE (XL) 50 MG TAB PO (07:16)
[2021-11-03] MEDS: OCUVITE TABLET 2 TAB PO ×2 (07:16→16:18)
[2021-11-03] MEDS: POTASSIUM CHLORIDE 10 MEQ CAPSULE ER PO (07:17)
[2021-11-03] MEDS: METFORMIN 1,000 MG TABLET 1000 MG PO ×2 (07:17→17:21)
[2021-11-03] MEDS: NICOTINE 4 MG GUM BUCCAL ×2 (07:19→17:21)
[2021-11-03] MEDS: CARBOXYMETHYLCELLULOSE (REFRESH PLUS) TEARS 1 DROP EYE-BOTH ×4 (07:19→19:17)
[2021-11-03] MEDS: ALBUTEROL INHALER 2 PUFF IH ×4 (07:19→19:17)
[2021-11-03] MEDS: OXYCODONE 5 MG TABLET PO ×2 (07:24→19:15)
--- NOTE | 2021-11-03 10:27 | PC.SPIRITC ---
Tran talked about coping with pain lately. Specialty Molder provided time to process, communion, prayer, support, and communion.
[2021-11-03 10:44] VITALS: BMI 19.5
--- NOTE | 2021-11-03 10:47 | PC.NURSE ---
Tired/Pain: Resident feeling very tired and off this morning. Checked blood sugar and this was 148. Complained of right wrist and back pain. Oxycodone administered. Resident declined bath at first but talked resident into taking one to help with pain. Resident agreed. Pain still continues. Will try ice/heat.
[2021-11-03 11:37] VITALS: TEMP 36.8; O2SAT 96
[2021-11-03 18:36] VITALS: TEMP 36.4; O2SAT 97
[2021-11-03] MEDS: ATORVASTATIN 10 MG TABLET PO (19:17)
[2021-11-03] MEDS: TRAZODONE HCL 50 MG TABLET PO (19:18)
[2021-11-03] MEDS: SENNOSIDES 1 TAB TABLET PO (19:18)
[2021-11-04] MEDS: VENLAFAXINE ER 75 MG CAPSULE PO (07:09)
[2021-11-04] MEDS: FUROSEMIDE 40 MG TABLET 60 MG PO (07:09)
[2021-11-04] MEDS: METOPROLOL SUCCINATE (XL) 50 MG TAB PO (07:09)
[2021-11-04] MEDS: OCUVITE TABLET 2 TAB PO ×2 (07:09→16:23)
[2021-11-04] MEDS: ALBUTEROL INHALER 2 PUFF IH ×4 (07:09→20:04)
[2021-11-04] MEDS: VENLAFAXINE HCL ER 37.5 MG CAPSULE PO (07:09)
[2021-11-04] MEDS: ASPIRIN 81 MG TABLET EC PO (07:09)
[2021-11-04] MEDS: OMEPRAZOLE 20 MG CAPSULE DR PO (07:09)
[2021-11-04] MEDS: ACETAMINOPHEN 500 MG TABLET 1000 MG PO ×3 (07:09→20:04)
[2021-11-04] MEDS: POTASSIUM CHLORIDE 10 MEQ CAPSULE ER PO (07:09)
[2021-11-04] MEDS: METFORMIN 1,000 MG TABLET 1000 MG PO ×2 (07:09→17:17)
[2021-11-04] MEDS: CARBOXYMETHYLCELLULOSE (REFRESH PLUS) TEARS 1 DROP EYE-BOTH ×4 (07:10→20:04)
[2021-11-04] MEDS: NICOTINE 4 MG GUM BUCCAL (17:17)
[2021-11-04] MEDS: ATORVASTATIN 10 MG TABLET PO (20:04)
[2021-11-04] MEDS: SENNOSIDES 1 TAB TABLET PO (20:04)
[2021-11-04] MEDS: TRAZODONE HCL 50 MG TABLET PO (20:04)
[2021-11-04 21:51] VITALS: TEMP 36.8; O2SAT 97
[2021-11-05] MEDS: OMEPRAZOLE 20 MG CAPSULE DR PO (06:43)
[2021-11-05] MEDS: METFORMIN 1,000 MG TABLET 1000 MG PO ×2 (08:22→17:14)
[2021-11-05] MEDS: ACETAMINOPHEN 500 MG TABLET 1000 MG PO ×3 (08:22→19:50)
[2021-11-05] MEDS: VENLAFAXINE HCL ER 37.5 MG CAPSULE PO (08:22)
[2021-11-05] MEDS: VENLAFAXINE ER 75 MG CAPSULE PO (08:22)
[2021-11-05] MEDS: FUROSEMIDE 40 MG TABLET 60 MG PO (08:22)
[2021-11-05] MEDS: ASPIRIN 81 MG TABLET EC PO (08:22)
[2021-11-05] MEDS: ALBUTEROL INHALER 2 PUFF IH ×4 (08:22→19:50)
[2021-11-05] MEDS: OCUVITE TABLET 2 TAB PO ×2 (08:23→16:37)
[2021-11-05] MEDS: CARBOXYMETHYLCELLULOSE (REFRESH PLUS) TEARS 1 DROP EYE-BOTH ×4 (08:23→19:50)
[2021-11-05] MEDS: METOPROLOL SUCCINATE (XL) 50 MG TAB PO (08:23)
[2021-11-05] MEDS: POTASSIUM CHLORIDE 10 MEQ CAPSULE ER PO (08:23)
[2021-11-05] MEDS: NICOTINE 4 MG GUM BUCCAL ×2 (08:23→17:14)
[2021-11-05] MEDS: FOLIC ACID 800 MCG 1 EACH PO (08:23)
[2021-11-05] MEDS: ATORVASTATIN 10 MG TABLET PO (19:50)
[2021-11-05] MEDS: SENNOSIDES 1 TAB TABLET PO (19:50)
[2021-11-05] MEDS: TRAZODONE HCL 50 MG TABLET PO (19:51)
[2021-11-05 21:26] VITALS: TEMP 36.4; O2SAT 94
[2021-11-06] MEDS: OMEPRAZOLE 20 MG CAPSULE DR PO (06:37)
[2021-11-06] MEDS: METOPROLOL SUCCINATE (XL) 50 MG TAB PO (07:04)
[2021-11-06] MEDS: FOLIC ACID 800 MCG 1 EACH PO (07:04)
[2021-11-06] MEDS: ACETAMINOPHEN 500 MG TABLET 1000 MG PO ×3 (07:04→19:51)
[2021-11-06] MEDS: FUROSEMIDE 40 MG TABLET 60 MG PO (07:04)
[2021-11-06] MEDS: VENLAFAXINE HCL ER 37.5 MG CAPSULE PO (07:04)
[2021-11-06] MEDS: CARBOXYMETHYLCELLULOSE (REFRESH PLUS) TEARS 1 DROP EYE-BOTH ×4 (07:04→19:51)
[2021-11-06] MEDS: POTASSIUM CHLORIDE 10 MEQ CAPSULE ER PO (07:04)
[2021-11-06] MEDS: ASPIRIN 81 MG TABLET EC PO (07:04)
[2021-11-06] MEDS: VENLAFAXINE ER 75 MG CAPSULE PO (07:04)
[2021-11-06] MEDS: METFORMIN 1,000 MG TABLET 1000 MG PO ×2 (07:04→17:23)
[2021-11-06] MEDS: OCUVITE TABLET 2 TAB PO ×2 (07:04→16:07)
[2021-11-06] MEDS: ALBUTEROL INHALER 2 PUFF IH ×4 (07:04→19:51)
[2021-11-06] MEDS: NICOTINE 4 MG GUM BUCCAL (17:23)
[2021-11-06] MEDS: SENNOSIDES 1 TAB TABLET PO (19:51)
[2021-11-06] MEDS: ATORVASTATIN 10 MG TABLET PO (19:51)
[2021-11-06] MEDS: TRAZODONE HCL 50 MG TABLET PO (19:51)
[2021-11-06] MEDS: OXYCODONE 5 MG TABLET PO (19:54)
[2021-11-06 21:00] VITALS: TEMP 36.8; O2SAT 94
[2021-11-07] MEDS: OMEPRAZOLE 20 MG CAPSULE DR PO (06:33)
[2021-11-07] MEDS: VENLAFAXINE HCL ER 37.5 MG CAPSULE PO (08:30)
[2021-11-07] MEDS: ASPIRIN 81 MG TABLET EC PO (08:30)
[2021-11-07] MEDS: VENLAFAXINE ER 75 MG CAPSULE PO (08:30)
[2021-11-07] MEDS: ACETAMINOPHEN 500 MG TABLET 1000 MG PO ×3 (08:30→19:33)
[2021-11-07] MEDS: ALBUTEROL INHALER 2 PUFF IH ×4 (08:30→19:33)
[2021-11-07] MEDS: CARBOXYMETHYLCELLULOSE (REFRESH PLUS) TEARS 1 DROP EYE-BOTH ×4 (08:31→19:33)
[2021-11-07] MEDS: POTASSIUM CHLORIDE 10 MEQ CAPSULE ER PO (08:31)
[2021-11-07] MEDS: FUROSEMIDE 40 MG TABLET 60 MG PO (08:31)
[2021-11-07] MEDS: METOPROLOL SUCCINATE (XL) 50 MG TAB PO (08:31)
[2021-11-07] MEDS: FOLIC ACID 800 MCG 1 EACH PO (08:31)
[2021-11-07] MEDS: NICOTINE 4 MG GUM BUCCAL (08:31)
[2021-11-07] MEDS: METFORMIN 1,000 MG TABLET 1000 MG PO ×2 (08:31→17:33)
[2021-11-07] MEDS: OCUVITE TABLET 2 TAB PO ×2 (08:31→15:06)
[2021-11-07] MEDS: OXYCODONE 5 MG TABLET PO (11:39)
[2021-11-07 16:00] VITALS: TEMP 36.9; O2SAT 96
[2021-11-07] MEDS: TRAZODONE HCL 50 MG TABLET PO (19:33)
[2021-11-07] MEDS: ATORVASTATIN 10 MG TABLET PO (19:33)
[2021-11-07] MEDS: SENNOSIDES 1 TAB TABLET PO (19:33)
[2021-11-08] MEDS: OMEPRAZOLE 20 MG CAPSULE DR PO (07:02)
[2021-11-08] MEDS: ALBUTEROL INHALER 2 PUFF IH ×4 (07:03→19:38)
[2021-11-08] MEDS: VENLAFAXINE ER 75 MG CAPSULE PO (07:03)
[2021-11-08] MEDS: ACETAMINOPHEN 500 MG TABLET 1000 MG PO ×3 (07:03→19:38)
[2021-11-08] MEDS: ASPIRIN 81 MG TABLET EC PO (07:03)
[2021-11-08] MEDS: FUROSEMIDE 40 MG TABLET 60 MG PO (07:03)
[2021-11-08] MEDS: VENLAFAXINE HCL ER 37.5 MG CAPSULE PO (07:03)
[2021-11-08] MEDS: METFORMIN 1,000 MG TABLET 1000 MG PO ×2 (07:03→17:04)
[2021-11-08] MEDS: POTASSIUM CHLORIDE 10 MEQ CAPSULE ER PO (07:04)
[2021-11-08] MEDS: FOLIC ACID 800 MCG 1 EACH PO (07:04)
[2021-11-08] MEDS: CARBOXYMETHYLCELLULOSE (REFRESH PLUS) TEARS 1 DROP EYE-BOTH ×4 (07:04→19:36)
[2021-11-08] MEDS: OCUVITE TABLET 2 TAB PO ×2 (07:04→16:28)
[2021-11-08] MEDS: METOPROLOL SUCCINATE (XL) 50 MG TAB PO (07:04)
[2021-11-08] MEDS: OXYCODONE 5 MG TABLET PO (07:06)
--- NOTE | 2021-11-08 10:23 | PC.NURSE ---
STRESS TEST: Spoke to resident regarding stress test order. She would like to forgo the test at this time and revisit if she continues to have continued episodes of chest pain.
--- NOTE | 2021-11-08 14:12 | PC.SOCIAL ---
Resident wanted to walk to the main road to go smoke, said a particular staff person has taken her before. Reminded resident she cannot walk alone that far for safety as we are responsible for her. Resident has had a fracture in the past from stepping off a curb when outside smoking. We are a no smoking facility on campus. Resident was upset but says she understands. Passed on to nursing to pass on in report no staff can take a resident off grounds on on the property to smoke.
[2021-11-08] MEDS: NICOTINE 4 MG GUM BUCCAL (17:04)
[2021-11-08 17:31] VITALS: TEMP 36.4; O2SAT 95
[2021-11-08] MEDS: ATORVASTATIN 10 MG TABLET PO (19:38)
[2021-11-08] MEDS: TRAZODONE HCL 50 MG TABLET PO (19:39)
[2021-11-08] MEDS: SENNOSIDES 1 TAB TABLET PO (19:39)
[2021-11-09 01:43] VITALS: TEMP 36.2; O2SAT 96
--- NOTE | 2021-11-09 02:30 | PC.NURSE ---
Week #3:Care plan 30-39 reviewed: no change.Temporary care plan reviewed: Vital signs reviewed with in normal limits.Resident is continent of bowel and bladder. Does wear pull-ups for break through incontinence. Is independent in the bathroom. Skin summary: Resident has swelling on her right hand which is subsiding with ice application and PRN pain medication . No other skin concerns. .
[2021-11-09] MEDS: OMEPRAZOLE 20 MG CAPSULE DR PO (06:38)
[2021-11-09 07:00] VITALS: TEMP 36.7; O2SAT 96
[2021-11-09] MEDS: OXYCODONE 5 MG TABLET PO ×2 (08:30→18:28)
[2021-11-09] MEDS: ASPIRIN 81 MG TABLET EC PO (08:35)
[2021-11-09] MEDS: ACETAMINOPHEN 500 MG TABLET 1000 MG PO ×3 (08:35→19:47)
[2021-11-09] MEDS: VENLAFAXINE ER 75 MG CAPSULE PO (08:35)
[2021-11-09] MEDS: ALBUTEROL INHALER 2 PUFF IH ×4 (08:35→19:47)
[2021-11-09] MEDS: METOPROLOL SUCCINATE (XL) 50 MG TAB PO (08:36)
[2021-11-09] MEDS: FOLIC ACID 800 MCG 1 EACH PO (08:36)
[2021-11-09] MEDS: NICOTINE 4 MG GUM BUCCAL ×2 (08:36→17:07)
[2021-11-09] MEDS: CARBOXYMETHYLCELLULOSE (REFRESH PLUS) TEARS 1 DROP EYE-BOTH ×4 (08:36→19:47)
[2021-11-09] MEDS: FUROSEMIDE 40 MG TABLET 60 MG PO (08:36)
[2021-11-09] MEDS: POTASSIUM CHLORIDE 10 MEQ CAPSULE ER PO (08:36)
[2021-11-09] MEDS: VENLAFAXINE HCL ER 37.5 MG CAPSULE PO (08:36)
[2021-11-09] MEDS: OCUVITE TABLET 2 TAB PO ×2 (08:36→15:34)
[2021-11-09] MEDS: METFORMIN 1,000 MG TABLET 1000 MG PO ×2 (08:36→17:07)
[2021-11-09 10:00] VITALS: BP 106/55; PULSE 70; RESP 26; TEMP 36.7; O2SAT 96
--- NOTE | 2021-11-09 10:38 | PC.PHA ---
Pharmacy Review ~ Patient continues on poly pharmacy with all medications having corresponding indications. Her renal function is close to being too poor for the continuation of metformin and therefore recommend continued monitoring of creatine. As needed oxycodone order has been utilized significantly more in October compared to September.
--- NOTE | 2021-11-09 11:15 | PC.NURSE ---
Week 3 charting - 1. No noted skin issues. 2. Temporary care plan updated 10/31. Pt report R hand pain, swelling observed. PHOTOENGRAVING PHOTOGRAPHER examined. X-ray done. No new orders. PHOTOENGRAVING PHOTOGRAPHER instructed to monitor, PRN pain meds, ice/heat. 3. Care plan #31 - Resident continent x2. Occasional incontinence of bladder d/t urgency and diuretic use. Pt independent with all toileting needs. Resident able to call for staff assistance if needed.
[2021-11-09 15:00] VITALS: TEMP 36.7; O2SAT 96
[2021-11-09] MEDS: ATORVASTATIN 10 MG TABLET PO (19:47)
[2021-11-09] MEDS: SENNOSIDES 1 TAB TABLET PO (19:47)
[2021-11-09] MEDS: TRAZODONE HCL 50 MG TABLET PO (19:47)
[2021-11-10 03:21] VITALS: TEMP 36.3; O2SAT 90
[2021-11-10] MEDS: OMEPRAZOLE 20 MG CAPSULE DR PO (06:50)
[2021-11-10] MEDS: ACETAMINOPHEN 500 MG TABLET 1000 MG PO ×3 (07:46→19:46)
[2021-11-10] MEDS: VENLAFAXINE ER 75 MG CAPSULE PO (07:46)
[2021-11-10] MEDS: ASPIRIN 81 MG TABLET EC PO (07:46)
[2021-11-10] MEDS: ALBUTEROL INHALER 2 PUFF IH ×4 (07:46→19:46)
[2021-11-10] MEDS: FUROSEMIDE 40 MG TABLET 60 MG PO (07:47)
[2021-11-10] MEDS: POTASSIUM CHLORIDE 10 MEQ CAPSULE ER PO (07:47)
[2021-11-10] MEDS: OCUVITE TABLET 2 TAB PO ×2 (07:47→15:54)
[2021-11-10] MEDS: FOLIC ACID 800 MCG 1 EACH PO (07:47)
[2021-11-10] MEDS: METOPROLOL SUCCINATE (XL) 50 MG TAB PO (07:47)
[2021-11-10] MEDS: CARBOXYMETHYLCELLULOSE (REFRESH PLUS) TEARS 1 DROP EYE-BOTH ×4 (07:47→19:46)
[2021-11-10] MEDS: METFORMIN 1,000 MG TABLET 1000 MG PO ×2 (07:47→17:40)
[2021-11-10] MEDS: VENLAFAXINE HCL ER 37.5 MG CAPSULE PO (07:47)
--- NOTE | 2021-11-10 09:35 | PC.NURSE ---
COVID OUTBREAK TESTING: Resident provided verbal consent for outbreak COVID testing. Resident is currently asymptomatic. Resident/family will be notified only if resident is positive.
[2021-11-10 10:26] VITALS: BMI 19.9
[2021-11-10 13:18] LABS: SARS PCR* Negative SARS-CoV-2 (Negative)
[2021-11-10] MEDS: NICOTINE 4 MG GUM BUCCAL (17:45)
[2021-11-10] MEDS: TRAZODONE HCL 50 MG TABLET PO (19:46)
[2021-11-10] MEDS: ATORVASTATIN 10 MG TABLET PO (19:46)
[2021-11-10] MEDS: SENNOSIDES 1 TAB TABLET PO (19:46)
[2021-11-10] MEDS: OXYCODONE 5 MG TABLET PO (19:57)
[2021-11-10 21:06] VITALS: TEMP 36.6; O2SAT 96
[2021-11-11 03:57] VITALS: TEMP 36.3; O2SAT 90
[2021-11-11] MEDS: OMEPRAZOLE 20 MG CAPSULE DR PO (06:54)
[2021-11-11 07:00] VITALS: TEMP 36.7; O2SAT 96
[2021-11-11] MEDS: ASPIRIN 81 MG TABLET EC PO (07:04)
[2021-11-11] MEDS: ALBUTEROL INHALER 2 PUFF IH ×4 (07:04→19:52)
[2021-11-11] MEDS: ACETAMINOPHEN 500 MG TABLET 1000 MG PO ×3 (07:04→19:51)
[2021-11-11] MEDS: VENLAFAXINE HCL ER 37.5 MG CAPSULE PO (07:05)
[2021-11-11] MEDS: METOPROLOL SUCCINATE (XL) 50 MG TAB PO (07:05)
[2021-11-11] MEDS: METFORMIN 1,000 MG TABLET 1000 MG PO ×2 (07:05→17:12)
[2021-11-11] MEDS: FUROSEMIDE 40 MG TABLET 60 MG PO (07:05)
[2021-11-11] MEDS: VENLAFAXINE ER 75 MG CAPSULE PO (07:05)
[2021-11-11] MEDS: OCUVITE TABLET 2 TAB PO ×2 (07:05→16:10)
[2021-11-11] MEDS: POTASSIUM CHLORIDE 10 MEQ CAPSULE ER PO (07:05)
[2021-11-11] MEDS: CARBOXYMETHYLCELLULOSE (REFRESH PLUS) TEARS 1 DROP EYE-BOTH ×4 (07:05→19:51)
[2021-11-11] MEDS: NICOTINE 4 MG GUM BUCCAL (17:13)
[2021-11-11] MEDS: SENNOSIDES 1 TAB TABLET PO (19:52)
[2021-11-11] MEDS: ATORVASTATIN 10 MG TABLET PO (19:52)
[2021-11-11] MEDS: TRAZODONE HCL 50 MG TABLET PO (19:52)
[2021-11-11] MEDS: OXYCODONE 5 MG TABLET PO (21:31)
[2021-11-11 22:02] VITALS: TEMP 36.3; O2SAT 94
[2021-11-12 01:29] VITALS: TEMP 36.4; O2SAT 96
[2021-11-12] MEDS: OMEPRAZOLE 20 MG CAPSULE DR PO (06:43)
[2021-11-12] MEDS: OXYCODONE 5 MG TABLET PO ×2 (06:46→19:32)
[2021-11-12 07:00] VITALS: TEMP 36.6; O2SAT 90
[2021-11-12] MEDS: METFORMIN 1,000 MG TABLET 1000 MG PO ×2 (08:33→17:10)
[2021-11-12] MEDS: FUROSEMIDE 40 MG TABLET 60 MG PO (08:33)
[2021-11-12] MEDS: POTASSIUM CHLORIDE 10 MEQ CAPSULE ER PO (08:33)
[2021-11-12] MEDS: METOPROLOL SUCCINATE (XL) 50 MG TAB PO (08:33)
[2021-11-12] MEDS: ALBUTEROL INHALER 2 PUFF IH ×4 (08:33→19:32)
[2021-11-12] MEDS: VENLAFAXINE ER 75 MG CAPSULE PO (08:33)
[2021-11-12] MEDS: OCUVITE TABLET 2 TAB PO ×2 (08:33→16:13)
[2021-11-12] MEDS: CARBOXYMETHYLCELLULOSE (REFRESH PLUS) TEARS 1 DROP EYE-BOTH ×4 (08:33→19:32)
[2021-11-12] MEDS: ASPIRIN 81 MG TABLET EC PO (08:33)
[2021-11-12] MEDS: ACETAMINOPHEN 500 MG TABLET 1000 MG PO ×3 (08:33→19:35)
[2021-11-12] MEDS: FOLIC ACID 800 MCG 1 EACH PO (08:33)
[2021-11-12] MEDS: VENLAFAXINE HCL ER 37.5 MG CAPSULE PO (08:33)
[2021-11-12 16:45] VITALS: TEMP 36.3; O2SAT 93
[2021-11-12] MEDS: NICOTINE 4 MG GUM BUCCAL (17:11)
[2021-11-12] MEDS: TRAZODONE HCL 50 MG TABLET PO (19:35)
[2021-11-12] MEDS: SENNOSIDES 1 TAB TABLET PO (19:35)
[2021-11-12] MEDS: ATORVASTATIN 10 MG TABLET PO (19:35)
[2021-11-13 02:30] VITALS: TEMP 36.3; O2SAT 95
[2021-11-13] MEDS: OMEPRAZOLE 20 MG CAPSULE DR PO (06:26)
[2021-11-13 07:00] VITALS: TEMP 36.5; O2SAT 97
[2021-11-13] MEDS: ASPIRIN 81 MG TABLET EC PO (07:37)
[2021-11-13] MEDS: ACETAMINOPHEN 500 MG TABLET 1000 MG PO ×3 (07:37→19:38)
[2021-11-13] MEDS: ALBUTEROL INHALER 2 PUFF IH ×4 (07:37→19:38)
[2021-11-13] MEDS: METOPROLOL SUCCINATE (XL) 50 MG TAB PO (07:38)
[2021-11-13] MEDS: OCUVITE TABLET 2 TAB PO ×2 (07:38→16:17)
[2021-11-13] MEDS: METFORMIN 1,000 MG TABLET 1000 MG PO ×2 (07:38→17:13)
[2021-11-13] MEDS: OXYCODONE 5 MG TABLET PO ×2 (07:38→19:39)
[2021-11-13] MEDS: VENLAFAXINE HCL ER 37.5 MG CAPSULE PO (07:38)
[2021-11-13] MEDS: FUROSEMIDE 40 MG TABLET 60 MG PO (07:38)
[2021-11-13] MEDS: VENLAFAXINE ER 75 MG CAPSULE PO (07:38)
[2021-11-13] MEDS: CARBOXYMETHYLCELLULOSE (REFRESH PLUS) TEARS 1 DROP EYE-BOTH ×4 (07:38→19:38)
[2021-11-13] MEDS: FOLIC ACID 800 MCG 1 EACH PO (07:38)
[2021-11-13] MEDS: POTASSIUM CHLORIDE 10 MEQ CAPSULE ER PO (07:38)
[2021-11-13] MEDS: NICOTINE 4 MG GUM BUCCAL (17:13)
[2021-11-13 18:43] VITALS: TEMP 36.6; O2SAT 97
[2021-11-13] MEDS: ATORVASTATIN 10 MG TABLET PO (19:38)
[2021-11-13] MEDS: SENNOSIDES 1 TAB TABLET PO (19:38)
[2021-11-13] MEDS: TRAZODONE HCL 50 MG TABLET PO (19:38)
[2021-11-13 23:00] VITALS: TEMP 36.8; O2SAT 97
[2021-11-14] MEDS: OMEPRAZOLE 20 MG CAPSULE DR PO (06:49)
[2021-11-14] MEDS: OXYCODONE 5 MG TABLET PO ×2 (06:54→18:47)
[2021-11-14] MEDS: NICOTINE 4 MG GUM BUCCAL ×2 (06:54→17:48)
[2021-11-14 07:00] VITALS: TEMP 36.2; O2SAT 94
[2021-11-14] MEDS: CARBOXYMETHYLCELLULOSE (REFRESH PLUS) TEARS 1 DROP EYE-BOTH ×4 (08:36→20:05)
[2021-11-14] MEDS: METOPROLOL SUCCINATE (XL) 50 MG TAB PO (08:36)
[2021-11-14] MEDS: METFORMIN 1,000 MG TABLET 1000 MG PO ×2 (08:36→17:46)
[2021-11-14] MEDS: ACETAMINOPHEN 500 MG TABLET 1000 MG PO ×3 (08:36→20:04)
[2021-11-14] MEDS: ASPIRIN 81 MG TABLET EC PO (08:36)
[2021-11-14] MEDS: VENLAFAXINE ER 75 MG CAPSULE PO (08:36)
[2021-11-14] MEDS: OCUVITE TABLET 2 TAB PO ×2 (08:36→15:43)
[2021-11-14] MEDS: FOLIC ACID 800 MCG 1 EACH PO (08:36)
[2021-11-14] MEDS: POTASSIUM CHLORIDE 10 MEQ CAPSULE ER PO (08:36)
[2021-11-14] MEDS: ALBUTEROL INHALER 2 PUFF IH ×4 (08:36→20:04)
[2021-11-14] MEDS: FUROSEMIDE 40 MG TABLET 60 MG PO (08:36)
[2021-11-14] MEDS: VENLAFAXINE HCL ER 37.5 MG CAPSULE PO (08:36)
--- NOTE | 2021-11-14 10:27 | PC.NURSE ---
COVID OUTBREAK TESTING: Resident provided verbal consent for outbreak COVID testing. Resident is currently asymptomatic. Resident/family will be notified only if resident is positive.
[2021-11-14 12:36] LABS: SARS PCR* Negative SARS-CoV-2 (Negative)
[2021-11-14 15:00] VITALS: TEMP 36.6; O2SAT 96
--- NOTE | 2021-11-14 16:22 | NUTR.NU ---
Nutrition/Diet Update: RDN was informed resident has been asking for other options for desserts because of her diabetes. RDN visited with resident whom stated she has been trying to be careful with the foods she chooses and trying to avoid sweets. Resident is currently on a Regular diet. Resident declined a diabetic diet at this time. RDN offered resident a low concentrated sweets diet (1/2 portion of Regular desserts and sugar-free condiments), and resident agreed to this diet. She continues to utilize Diabetic-friendly snacks list. Resident had no questions or concerns at this time. RDN encouraged resident to let staff know of any concerns or questions she may have. CHIQUITAN wrote request for diet order change in MANAGER SUBWAY book.
[2021-11-14] MEDS: ATORVASTATIN 10 MG TABLET PO (20:04)
[2021-11-14] MEDS: TRAZODONE HCL 50 MG TABLET PO (20:05)
[2021-11-14] MEDS: SENNOSIDES 1 TAB TABLET PO (20:05)
[2021-11-15 03:55] VITALS: TEMP 36.1; O2SAT 90
[2021-11-15] MEDS: OMEPRAZOLE 20 MG CAPSULE DR PO (06:30)
[2021-11-15] MEDS: NICOTINE 4 MG GUM BUCCAL ×2 (06:56→17:19)
[2021-11-15] MEDS: OXYCODONE 5 MG TABLET PO ×2 (06:56→17:46)
[2021-11-15 07:00] VITALS: TEMP 36.6; O2SAT 93
[2021-11-15] MEDS: FOLIC ACID 800 MCG 1 EACH PO (08:45)
[2021-11-15] MEDS: OCUVITE TABLET 2 TAB PO ×2 (08:45→16:14)
[2021-11-15] MEDS: ACETAMINOPHEN 500 MG TABLET 1000 MG PO ×3 (08:45→19:40)
[2021-11-15] MEDS: FUROSEMIDE 40 MG TABLET 60 MG PO (08:45)
[2021-11-15] MEDS: CARBOXYMETHYLCELLULOSE (REFRESH PLUS) TEARS 1 DROP EYE-BOTH ×3 (08:45→19:40)
[2021-11-15] MEDS: ALBUTEROL INHALER 2 PUFF IH ×4 (08:45→19:40)
[2021-11-15] MEDS: METOPROLOL SUCCINATE (XL) 50 MG TAB PO (08:45)
[2021-11-15] MEDS: VENLAFAXINE HCL ER 37.5 MG CAPSULE PO (08:45)
[2021-11-15] MEDS: METFORMIN 1,000 MG TABLET 1000 MG PO ×2 (08:45→17:18)
[2021-11-15] MEDS: ASPIRIN 81 MG TABLET EC PO (08:45)
[2021-11-15] MEDS: POTASSIUM CHLORIDE 10 MEQ CAPSULE ER PO (08:45)
[2021-11-15] MEDS: VENLAFAXINE ER 75 MG CAPSULE PO (08:45)
[2021-11-15] MEDS: MAGNESIUM HYDROXIDE 30 ML ORAL.SUSP PO (10:19)
[2021-11-15 17:05] VITALS: TEMP 36.4; O2SAT 96
--- NOTE | 2021-11-15 17:10 | PC.NURSE ---
Tran was observed walking from outside of the [facility] into the courtyard with her jacket on. I met with her and she smelled of smoke. I reminded her we are a no smoking campus and she apologized and said she wouldn't do it again. I asked if she need her Nicotine gum or anything else to help stave off cravings and she declined.
[2021-11-15] MEDS: ATORVASTATIN 10 MG TABLET PO (19:40)
[2021-11-15] MEDS: SENNOSIDES 1 TAB TABLET PO (19:40)
[2021-11-15] MEDS: TRAZODONE HCL 50 MG TABLET PO (19:41)
--- NOTE | 2021-11-16 03:08 | PC.NURSE ---
Week #4: No change in mood/behavior is on Effexor 112.5mg PO daily and, Trazodone 50mg PO daily with no adverse effects noted. Temporary care plan reviewed, no change. Care plan 40-119 reviewed, no change. No change in communication, chronic health condition, or medication. Resident can self admin meds.
[2021-11-16 03:34] VITALS: TEMP 36.1; O2SAT 90
[2021-11-16] MEDS: OMEPRAZOLE 20 MG CAPSULE DR PO (06:33)
[2021-11-16 07:00] VITALS: TEMP 36.6; O2SAT 93
[2021-11-16] MEDS: VENLAFAXINE HCL ER 37.5 MG CAPSULE PO (08:30)
[2021-11-16] MEDS: METOPROLOL SUCCINATE (XL) 50 MG TAB PO (08:30)
[2021-11-16] MEDS: ACETAMINOPHEN 500 MG TABLET 1000 MG PO ×3 (08:30→19:46)
[2021-11-16] MEDS: FUROSEMIDE 40 MG TABLET 60 MG PO (08:30)
[2021-11-16] MEDS: OCUVITE TABLET 2 TAB PO ×2 (08:30→16:03)
[2021-11-16] MEDS: ALBUTEROL INHALER 2 PUFF IH ×4 (08:30→19:46)
[2021-11-16] MEDS: VENLAFAXINE ER 75 MG CAPSULE PO (08:30)
[2021-11-16] MEDS: POTASSIUM CHLORIDE 10 MEQ CAPSULE ER PO (08:30)
[2021-11-16] MEDS: METFORMIN 1,000 MG TABLET 1000 MG PO ×2 (08:30→17:31)
[2021-11-16] MEDS: FOLIC ACID 800 MCG 1 EACH PO (08:30)
[2021-11-16] MEDS: ASPIRIN 81 MG TABLET EC PO (08:30)
[2021-11-16] MEDS: CARBOXYMETHYLCELLULOSE (REFRESH PLUS) TEARS 1 DROP EYE-BOTH ×4 (08:31→19:46)
--- NOTE | 2021-11-16 14:46 | PC.NURSE ---
Week #4: Care plan 40-119, Temporary care plan, and Vital signs reviewed - nothing added and no change made at this time. No change in communication, chronic health condition, or medication. Resident administers her medications, independently. Mood/behavior: No significant change in behavior the past month. Mood has been stable so far. Resident is on Effexor 112.5mg PO daily and, Trazodone 50mg PO daily. No adverse effects noted at this time.
[2021-11-16 15:00] VITALS: TEMP 36.6; O2SAT 96
--- NOTE | 2021-11-16 16:23 | PC.SPIRITC ---
provided devotional material to Tran to support her lamonte practices.
[2021-11-16] MEDS: NICOTINE 4 MG GUM BUCCAL (17:31)
[2021-11-16] MEDS: ATORVASTATIN 10 MG TABLET PO (19:46)
[2021-11-16] MEDS: TRAZODONE HCL 50 MG TABLET PO (19:47)
[2021-11-16] MEDS: SENNOSIDES 1 TAB TABLET PO (19:47)
--- NOTE | 2021-11-16 22:20 | PC.NURSE ---
Resident complains: Resident complained to this medical technical writer, on 11/16/21, at 1530, to the something to the effect of I think some people here are watching me because the head nurse has put it out there that I cannot, or no body can bring me to, go smoking outside. She mentioned her interaction with Bobby in his room was misjudged by a SABRINA and attempting to feed Mercedez in the dinning room during dinner was not handled well by staff, yesterday. She concluded her complains with a warning, when she stated, if one more person makes me mad tonight, I ma punch them in the face.
[2021-11-17 03:33] VITALS: TEMP 35.9; O2SAT 93
[2021-11-17] MEDS: NICOTINE 4 MG GUM BUCCAL ×3 (06:42→17:03)
[2021-11-17] MEDS: ACETAMINOPHEN 500 MG TABLET 1000 MG PO ×3 (06:42→19:30)
[2021-11-17] MEDS: OMEPRAZOLE 20 MG CAPSULE DR PO (06:42)
[2021-11-17] MEDS: ALBUTEROL INHALER 2 PUFF IH ×4 (06:43→19:30)
[2021-11-17] MEDS: ASPIRIN 81 MG TABLET EC PO (06:43)
[2021-11-17] MEDS: VENLAFAXINE HCL ER 37.5 MG CAPSULE PO (06:43)
[2021-11-17] MEDS: VENLAFAXINE ER 75 MG CAPSULE PO (06:43)
[2021-11-17] MEDS: METFORMIN 1,000 MG TABLET 1000 MG PO ×2 (06:45→17:03)
[2021-11-17] MEDS: FUROSEMIDE 40 MG TABLET 60 MG PO (06:45)
[2021-11-17] MEDS: METOPROLOL SUCCINATE (XL) 50 MG TAB PO (06:45)
[2021-11-17] MEDS: FOLIC ACID 800 MCG 1 EACH PO (06:46)
[2021-11-17] MEDS: POTASSIUM CHLORIDE 10 MEQ CAPSULE ER PO (06:47)
[2021-11-17] MEDS: CARBOXYMETHYLCELLULOSE (REFRESH PLUS) TEARS 1 DROP EYE-BOTH ×4 (06:47→19:30)
[2021-11-17] MEDS: OCUVITE TABLET 2 TAB PO ×2 (06:47→16:07)
--- NOTE | 2021-11-17 10:05 | PC.NURSE ---
Left Great toe redness: During skin check on day, it was noticed that there is an area of redness between residents left great toe and 2nd toe. Resident states that it is very itchy. CARVING MACHINE OPERATOR notified and order for hydrocortisone cream was placed.
[2021-11-17 10:11] VITALS: BMI 19.7
[2021-11-17 11:16] VITALS: TEMP 36.5; O2SAT 91
[2021-11-17 17:12] VITALS: BP 122/53; PULSE 56; RESP 18; TEMP 37.4; O2SAT 94
[2021-11-17] MEDS: ATORVASTATIN 10 MG TABLET PO (19:30)
[2021-11-17] MEDS: TRAZODONE HCL 50 MG TABLET PO (19:30)
[2021-11-17] MEDS: SENNOSIDES 1 TAB TABLET PO (19:30)
[2021-11-17 23:00] VITALS: TEMP 36.7; O2SAT 96
[2021-11-18] MEDS: OMEPRAZOLE 20 MG CAPSULE DR PO (06:31)
[2021-11-18 07:00] VITALS: TEMP 36.8; O2SAT 97
[2021-11-18] MEDS: VENLAFAXINE ER 75 MG CAPSULE PO (08:46)
[2021-11-18] MEDS: ALBUTEROL INHALER 2 PUFF IH (08:46)
[2021-11-18] MEDS: ASPIRIN 81 MG TABLET EC PO (08:46)
[2021-11-18] MEDS: ACETAMINOPHEN 500 MG TABLET 1000 MG PO (08:46)
[2021-11-18] MEDS: METOPROLOL SUCCINATE (XL) 50 MG TAB PO (08:47)
[2021-11-18] MEDS: FUROSEMIDE 40 MG TABLET 60 MG PO (08:47)
[2021-11-18] MEDS: VENLAFAXINE HCL ER 37.5 MG CAPSULE PO (08:47)
[2021-11-18] MEDS: OCUVITE TABLET 2 TAB PO (08:47)
[2021-11-18] MEDS: METFORMIN 1,000 MG TABLET 1000 MG PO (08:47)
[2021-11-18] MEDS: POTASSIUM CHLORIDE 10 MEQ CAPSULE ER PO (08:47)
[2021-11-18] MEDS: CARBOXYMETHYLCELLULOSE (REFRESH PLUS) TEARS 1 DROP EYE-BOTH (08:47)
--- NOTE | 2021-11-19 22:34 | PC.NURSE ---
Narcotic: Med-card is not available as at 11/18/21. Status of where about is unknown at this time. YEAST DISTILLER is notified and updated on this matter.
--- NOTE | 2021-11-20 13:22 | PC.NURSE ---
Outing: Resident return from outing at 1245 after lunch. Brought all her medications back. Her narcotic med card (Oxycodone 5mg) balance was 4 tabs.
[2021-11-20] MEDS: ALBUTEROL INHALER 2 PUFF IH ×2 (15:34→19:54)
[2021-11-20] MEDS: CARBOXYMETHYLCELLULOSE (REFRESH PLUS) TEARS 1 DROP EYE-BOTH ×2 (15:34→19:55)
[2021-11-20] MEDS: OCUVITE TABLET 2 TAB PO (15:34)
[2021-11-20] MEDS: NICOTINE 4 MG GUM BUCCAL (17:32)
[2021-11-20] MEDS: METFORMIN 1,000 MG TABLET 1000 MG PO (17:32)
[2021-11-20] MEDS: OXYCODONE 5 MG TABLET PO (18:54)
[2021-11-20] MEDS: ACETAMINOPHEN 500 MG TABLET 1000 MG PO (19:40)
[2021-11-20] MEDS: SENNOSIDES 1 TAB TABLET PO (19:55)
[2021-11-20] MEDS: ATORVASTATIN 10 MG TABLET PO (19:55)
[2021-11-20] MEDS: TRAZODONE HCL 50 MG TABLET PO (19:55)
[2021-11-20 20:41] VITALS: TEMP 36.6; O2SAT 96
[2021-11-21 02:47] VITALS: TEMP 36.4; O2SAT 90
[2021-11-21] MEDS: OMEPRAZOLE 20 MG CAPSULE DR PO (06:30)
[2021-11-21 07:00] VITALS: TEMP 36.7; O2SAT 91
[2021-11-21] MEDS: NICOTINE 4 MG GUM BUCCAL ×2 (07:05→17:20)
[2021-11-21] MEDS: METOPROLOL SUCCINATE (XL) 50 MG TAB PO (08:50)
[2021-11-21] MEDS: ALBUTEROL INHALER 2 PUFF IH ×4 (08:50→19:26)
[2021-11-21] MEDS: FUROSEMIDE 40 MG TABLET 60 MG PO (08:50)
[2021-11-21] MEDS: ASPIRIN 81 MG TABLET EC PO (08:50)
[2021-11-21] MEDS: ACETAMINOPHEN 500 MG TABLET 1000 MG PO ×3 (08:50→19:26)
[2021-11-21] MEDS: METFORMIN 1,000 MG TABLET 1000 MG PO ×2 (08:50→17:20)
[2021-11-21] MEDS: VENLAFAXINE ER 75 MG CAPSULE PO (08:50)
[2021-11-21] MEDS: VENLAFAXINE HCL ER 37.5 MG CAPSULE PO (08:50)
[2021-11-21] MEDS: FOLIC ACID 800 MCG 1 EACH PO (08:51)
[2021-11-21] MEDS: POTASSIUM CHLORIDE 10 MEQ CAPSULE ER PO (08:51)
[2021-11-21] MEDS: CARBOXYMETHYLCELLULOSE (REFRESH PLUS) TEARS 1 DROP EYE-BOTH ×4 (08:51→19:26)
[2021-11-21] MEDS: OCUVITE TABLET 2 TAB PO ×2 (08:51→15:43)
[2021-11-21 12:24] LABS: SARS PCR* Negative SARS-CoV-2 (Negative)
--- NOTE | 2021-11-21 13:36 | PC.NURSE ---
Leave of Absence - Pt left site with son and [id number] at 10:30. Pt plans to return 11/20. All pills sent with pt, including PRN oxycodone.
[2021-11-21 15:00] VITALS: TEMP 36.7; O2SAT 96
[2021-11-21] MEDS: TRAZODONE HCL 50 MG TABLET PO (19:26)
[2021-11-21] MEDS: ATORVASTATIN 10 MG TABLET PO (19:26)
[2021-11-21] MEDS: SENNOSIDES 1 TAB TABLET PO (19:26)
[2021-11-22 04:47] VITALS: TEMP 36.4; O2SAT 96
[2021-11-22] MEDS: OMEPRAZOLE 20 MG CAPSULE DR PO (06:43)
[2021-11-22 07:00] VITALS: TEMP 36.7; O2SAT 94
[2021-11-22] MEDS: FUROSEMIDE 40 MG TABLET 60 MG PO (08:25)
[2021-11-22] MEDS: OCUVITE TABLET 2 TAB PO ×2 (08:25→15:38)
[2021-11-22] MEDS: ASPIRIN 81 MG TABLET EC PO (08:25)
[2021-11-22] MEDS: FOLIC ACID 800 MCG 1 EACH PO (08:25)
[2021-11-22] MEDS: VENLAFAXINE HCL ER 37.5 MG CAPSULE PO (08:25)
[2021-11-22] MEDS: METOPROLOL SUCCINATE (XL) 50 MG TAB PO (08:25)
[2021-11-22] MEDS: ALBUTEROL INHALER 2 PUFF IH ×4 (08:25→19:43)
[2021-11-22] MEDS: VENLAFAXINE ER 75 MG CAPSULE PO (08:25)
[2021-11-22] MEDS: METFORMIN 1,000 MG TABLET 1000 MG PO ×2 (08:25→17:15)
[2021-11-22] MEDS: ACETAMINOPHEN 500 MG TABLET 1000 MG PO ×3 (08:25→19:43)
[2021-11-22] MEDS: CARBOXYMETHYLCELLULOSE (REFRESH PLUS) TEARS 1 DROP EYE-BOTH ×4 (08:26→19:43)
[2021-11-22] MEDS: POTASSIUM CHLORIDE 10 MEQ CAPSULE ER PO (08:26)
[2021-11-22 17:02] VITALS: TEMP 36.9; O2SAT 93
[2021-11-22] MEDS: NICOTINE 4 MG GUM BUCCAL (17:16)
[2021-11-22] MEDS: OXYCODONE 5 MG TABLET PO (19:41)
[2021-11-22] MEDS: SENNOSIDES 1 TAB TABLET PO (19:43)
[2021-11-22] MEDS: ATORVASTATIN 10 MG TABLET PO (19:43)
[2021-11-22] MEDS: TRAZODONE HCL 50 MG TABLET PO (19:44)
--- NOTE | 2021-11-22 23:53 | PC.NURSE ---
Week #1---care plan problems #1-19 reviewed.? No changes made.? Nothing added to temporary care plan.? Pain management : Resident receives Tylenol 1000 mg tid and Oxycodone 5 mg Q6H PRN which she has taken 4 times this month for shoulder pain prior going to bed. Resident is independent of her cares and uses call light if needed help.
[2021-11-23 02:13] VITALS: TEMP 36.6; O2SAT 95
[2021-11-23] MEDS: OMEPRAZOLE 20 MG CAPSULE DR PO (07:38)
[2021-11-23] MEDS: METFORMIN 1,000 MG TABLET 1000 MG PO ×2 (07:39→17:28)
[2021-11-23] MEDS: VENLAFAXINE HCL ER 37.5 MG CAPSULE PO (07:39)
[2021-11-23] MEDS: VENLAFAXINE ER 75 MG CAPSULE PO (07:39)
[2021-11-23] MEDS: ACETAMINOPHEN 500 MG TABLET 1000 MG PO ×3 (07:39→19:39)
[2021-11-23] MEDS: ASPIRIN 81 MG TABLET EC PO (07:39)
[2021-11-23] MEDS: FUROSEMIDE 40 MG TABLET 60 MG PO (07:39)
[2021-11-23] MEDS: ALBUTEROL INHALER 2 PUFF IH ×4 (07:39→19:39)
[2021-11-23] MEDS: FOLIC ACID 800 MCG 1 EACH PO (07:40)
[2021-11-23] MEDS: OCUVITE TABLET 2 TAB PO ×2 (07:40→16:01)
[2021-11-23] MEDS: METOPROLOL SUCCINATE (XL) 50 MG TAB PO (07:40)
[2021-11-23] MEDS: POTASSIUM CHLORIDE 10 MEQ CAPSULE ER PO (07:42)
[2021-11-23] MEDS: CARBOXYMETHYLCELLULOSE (REFRESH PLUS) TEARS 1 DROP EYE-BOTH ×4 (07:42→19:39)
[2021-11-23] MEDS: NICOTINE 4 MG GUM BUCCAL ×2 (07:42→17:28)
[2021-11-23 11:15] VITALS: TEMP 36.2; O2SAT 98
--- NOTE | 2021-11-23 13:25 | PC.SOCIAL ---
Phone call to resident's son, Ramiro Elkins. Informed Ramiro of upcoming care conference. Obtained Ramiro's e-mail [email or web address]. Informed that this worker will send care conference notices to his e-mail quarterly. Ramiro states he will attend by phone if he is available.
--- NOTE | 2021-11-23 13:54 | PC.NURSE ---
Week 1: Vital signs reviewed and no concerns at this time. Does complain of pain in joints often but does have history of RA. Receives methotrexate and humira for this. Also has PRN oxy which is only used periodically. Does get scheduled Tylenol. Worse in morning. Able to ambulate and participate in activities. Reviewed temporary care plan and completed right hand pain/swelling goal. Reviewed care problems 1-19 and no changes made. Able to dress and groom self. Left shoulder does not reach over head but resident is able to manages independently yet. Does need some assistance in the bathtub but otherwise independent. Resident is able to feed self and has had no change in appetite.
[2021-11-23 15:00] VITALS: TEMP 36.9; O2SAT 97
[2021-11-23] MEDS: ATORVASTATIN 10 MG TABLET PO (19:39)
[2021-11-23] MEDS: TRAZODONE HCL 50 MG TABLET PO (19:39)
[2021-11-23] MEDS: SENNOSIDES 1 TAB TABLET PO (19:39)
--- NOTE | 2021-11-23 22:11 | PC.NURSE ---
Behavior concern: It was reported by staff, who were in the dinning room during supper, that Tran Elkins yelled at Roland Keys many times to sit down as he attempted to get up from his chair. According to the report, Tran was defensive and angry as she called the SABRINA names, such as Oh little girl, when the SABRINA tried to redirect her. Resident confirmed report to this medical technical writer during a follow-up. According to her, she was concern that Roland would fall down, and that triggered her reaction. This medical technical writer encouraged her to alert or notify staff in situation like that so they can handle it accordingly.
[2021-11-24 02:33] VITALS: TEMP 36.6; O2SAT 90
[2021-11-24] MEDS: OMEPRAZOLE 20 MG CAPSULE DR PO (06:54)
[2021-11-24] MEDS: NICOTINE 4 MG GUM BUCCAL ×2 (07:20→17:33)
[2021-11-24] MEDS: ACETAMINOPHEN 500 MG TABLET 1000 MG PO ×3 (08:48→19:29)
[2021-11-24] MEDS: VENLAFAXINE HCL ER 37.5 MG CAPSULE PO (08:48)
[2021-11-24] MEDS: METFORMIN 1,000 MG TABLET 1000 MG PO ×2 (08:48→17:00)
[2021-11-24] MEDS: ALBUTEROL INHALER 2 PUFF IH ×4 (08:48→19:29)
[2021-11-24] MEDS: ASPIRIN 81 MG TABLET EC PO (08:48)
[2021-11-24] MEDS: METOPROLOL SUCCINATE (XL) 50 MG TAB PO (08:48)
[2021-11-24] MEDS: VENLAFAXINE ER 75 MG CAPSULE PO (08:48)
[2021-11-24] MEDS: FUROSEMIDE 40 MG TABLET 60 MG PO (08:48)
[2021-11-24] MEDS: OCUVITE TABLET 2 TAB PO ×2 (08:49→15:28)
[2021-11-24] MEDS: FOLIC ACID 800 MCG 1 EACH PO (08:49)
[2021-11-24] MEDS: POTASSIUM CHLORIDE 10 MEQ CAPSULE ER PO (08:50)
[2021-11-24] MEDS: CARBOXYMETHYLCELLULOSE (REFRESH PLUS) TEARS 1 DROP EYE-BOTH ×4 (08:50→19:29)
[2021-11-24 10:53] VITALS: TEMP 36.2; O2SAT 97
[2021-11-24 10:54] VITALS: BP 104/66; PULSE 79; RESP 18; TEMP 36.2; O2SAT 97
[2021-11-24 13:50] VITALS: BMI 19.5
[2021-11-24 18:41] VITALS: TEMP 36.7; O2SAT 97
[2021-11-24] MEDS: SENNOSIDES 1 TAB TABLET PO (19:29)
[2021-11-24] MEDS: ATORVASTATIN 10 MG TABLET PO (19:29)
[2021-11-24] MEDS: TRAZODONE HCL 50 MG TABLET PO (19:30)
--- NOTE | 2021-11-24 22:16 | PC.NURSE ---
Behavior: Resident was in the dining room at dinner having a verbal confrontation with the resident in [address]. She had a small hammer in her hand and was waving it about. He got up and walked over to her talking to her. Not sure what the argument was about but staff needed to intervene.
[2021-11-25 02:19] VITALS: TEMP 37.1; O2SAT 90
[2021-11-25] MEDS: OMEPRAZOLE 20 MG CAPSULE DR PO (06:42)
[2021-11-25] MEDS: NICOTINE 4 MG GUM BUCCAL (07:20)
[2021-11-25] MEDS: ACETAMINOPHEN 500 MG TABLET 1000 MG PO ×3 (07:37→20:02)
[2021-11-25] MEDS: METOPROLOL SUCCINATE (XL) 50 MG TAB PO (07:37)
[2021-11-25] MEDS: OCUVITE TABLET 2 TAB PO ×2 (07:37→15:43)
[2021-11-25] MEDS: ALBUTEROL INHALER 2 PUFF IH ×4 (07:37→20:01)
[2021-11-25] MEDS: CARBOXYMETHYLCELLULOSE (REFRESH PLUS) TEARS 1 DROP EYE-BOTH ×4 (07:37→20:02)
[2021-11-25] MEDS: POTASSIUM CHLORIDE 10 MEQ CAPSULE ER PO (07:37)
[2021-11-25] MEDS: VENLAFAXINE HCL ER 37.5 MG CAPSULE PO (07:37)
[2021-11-25] MEDS: VENLAFAXINE ER 75 MG CAPSULE PO (07:37)
[2021-11-25] MEDS: ASPIRIN 81 MG TABLET EC PO (07:37)
[2021-11-25] MEDS: FUROSEMIDE 40 MG TABLET 60 MG PO (07:37)
[2021-11-25] MEDS: METFORMIN 1,000 MG TABLET 1000 MG PO ×2 (07:37→17:04)
--- NOTE | 2021-11-25 12:36 | PC.NURSE ---
Medication not administered: Resident`s Methotrexate 2.5mg which is supposed to be given once weekly on Sun was not given as her med card was empty.
[2021-11-25 14:53] VITALS: TEMP 36.2; O2SAT 95
[2021-11-25] MEDS: SENNOSIDES 1 TAB TABLET PO (20:02)
[2021-11-25] MEDS: TRAZODONE HCL 50 MG TABLET PO (20:02)
[2021-11-25] MEDS: ATORVASTATIN 10 MG TABLET PO (20:02)
[2021-11-25 21:35] VITALS: TEMP 36.9; O2SAT 94
[2021-11-26 01:44] VITALS: TEMP 36.4; O2SAT 96
[2021-11-26] MEDS: ACETAMINOPHEN 500 MG TABLET 1000 MG PO ×3 (07:01→19:27)
[2021-11-26] MEDS: OMEPRAZOLE 20 MG CAPSULE DR PO (07:01)
[2021-11-26] MEDS: VENLAFAXINE HCL ER 37.5 MG CAPSULE PO (07:02)
[2021-11-26] MEDS: VENLAFAXINE ER 75 MG CAPSULE PO (07:02)
[2021-11-26] MEDS: ALBUTEROL INHALER 2 PUFF IH ×4 (07:02→19:27)
[2021-11-26] MEDS: OCUVITE TABLET 2 TAB PO ×2 (07:02→16:20)
[2021-11-26] MEDS: CARBOXYMETHYLCELLULOSE (REFRESH PLUS) TEARS 1 DROP EYE-BOTH ×4 (07:02→19:27)
[2021-11-26] MEDS: FOLIC ACID 800 MCG 1 EACH PO (07:02)
[2021-11-26] MEDS: ASPIRIN 81 MG TABLET EC PO (07:02)
[2021-11-26] MEDS: METOPROLOL SUCCINATE (XL) 50 MG TAB PO (07:02)
[2021-11-26] MEDS: NICOTINE 4 MG GUM BUCCAL ×3 (07:03→17:04)
[2021-11-26] MEDS: POTASSIUM CHLORIDE 10 MEQ CAPSULE ER PO (08:40)
[2021-11-26] MEDS: FUROSEMIDE 40 MG TABLET 60 MG PO (08:40)
[2021-11-26] MEDS: METFORMIN 1,000 MG TABLET 1000 MG PO ×2 (08:40→17:04)
[2021-11-26 10:26] VITALS: TEMP 36.3; O2SAT 98
--- NOTE | 2021-11-26 10:42 | PC.NURSE ---
Skin: Redness/itching in between toes resolved.
[2021-11-26 16:54] VITALS: TEMP 36.4; O2SAT 95
[2021-11-26] MEDS: SENNOSIDES 1 TAB TABLET PO (19:27)
[2021-11-26] MEDS: ATORVASTATIN 10 MG TABLET PO (19:27)
[2021-11-26] MEDS: TRAZODONE HCL 50 MG TABLET PO (19:27)
[2021-11-26 23:00] VITALS: TEMP 36.4; O2SAT 92
[2021-11-27] MEDS: OMEPRAZOLE 20 MG CAPSULE DR PO (06:45)
[2021-11-27] MEDS: ACETAMINOPHEN 500 MG TABLET 1000 MG PO ×3 (07:09→20:05)
[2021-11-27] MEDS: ASPIRIN 81 MG TABLET EC PO (07:09)
[2021-11-27] MEDS: ALBUTEROL INHALER 2 PUFF IH ×4 (07:09→20:05)
[2021-11-27] MEDS: METFORMIN 1,000 MG TABLET 1000 MG PO ×2 (07:10→17:02)
[2021-11-27] MEDS: VENLAFAXINE ER 75 MG CAPSULE PO (07:10)
[2021-11-27] MEDS: VENLAFAXINE HCL ER 37.5 MG CAPSULE PO (07:10)
[2021-11-27] MEDS: FUROSEMIDE 40 MG TABLET 60 MG PO (07:10)
[2021-11-27] MEDS: FOLIC ACID 800 MCG 1 EACH PO (07:11)
[2021-11-27] MEDS: METOPROLOL SUCCINATE (XL) 50 MG TAB PO (07:11)
[2021-11-27] MEDS: OCUVITE TABLET 2 TAB PO ×2 (07:12→15:52)
[2021-11-27] MEDS: CARBOXYMETHYLCELLULOSE (REFRESH PLUS) TEARS 1 DROP EYE-BOTH ×4 (07:12→20:06)
[2021-11-27] MEDS: POTASSIUM CHLORIDE 10 MEQ CAPSULE ER PO (07:12)
[2021-11-27 10:53] VITALS: TEMP 36.2; O2SAT 95
[2021-11-27] MEDS: NICOTINE 4 MG GUM BUCCAL ×2 (15:09→17:02)
[2021-11-27 16:55] VITALS: TEMP 36.6; O2SAT 94
[2021-11-27] MEDS: OXYCODONE 5 MG TABLET PO (20:04)
[2021-11-27] MEDS: ATORVASTATIN 10 MG TABLET PO (20:05)
[2021-11-27] MEDS: SENNOSIDES 1 TAB TABLET PO (20:06)
[2021-11-27] MEDS: TRAZODONE HCL 50 MG TABLET PO (20:06)
[2021-11-27 23:00] VITALS: TEMP 36.6; O2SAT 93
[2021-11-28] MEDS: VENLAFAXINE HCL ER 37.5 MG CAPSULE PO (07:12)
[2021-11-28] MEDS: METOPROLOL SUCCINATE (XL) 50 MG TAB PO (07:12)
[2021-11-28] MEDS: ACETAMINOPHEN 500 MG TABLET 1000 MG PO ×3 (07:12→19:42)
[2021-11-28] MEDS: VENLAFAXINE ER 75 MG CAPSULE PO (07:12)
[2021-11-28] MEDS: ALBUTEROL INHALER 2 PUFF IH ×4 (07:12→19:42)
[2021-11-28] MEDS: FUROSEMIDE 40 MG TABLET 60 MG PO (07:12)
[2021-11-28] MEDS: OMEPRAZOLE 20 MG CAPSULE DR PO (07:12)
[2021-11-28] MEDS: ASPIRIN 81 MG TABLET EC PO (07:12)
[2021-11-28] MEDS: FOLIC ACID 800 MCG 1 EACH PO (07:13)
[2021-11-28] MEDS: OCUVITE TABLET 2 TAB PO ×2 (07:13→16:17)
[2021-11-28] MEDS: CARBOXYMETHYLCELLULOSE (REFRESH PLUS) TEARS 1 DROP EYE-BOTH ×4 (07:13→19:42)
[2021-11-28] MEDS: NICOTINE 4 MG GUM BUCCAL ×2 (07:55→19:42)
[2021-11-28] MEDS: METFORMIN 1,000 MG TABLET 1000 MG PO ×2 (08:45→17:37)
[2021-11-28] MEDS: POTASSIUM CHLORIDE 10 MEQ CAPSULE ER PO (08:45)
[2021-11-28 10:51] VITALS: TEMP 36.2; O2SAT 94
[2021-11-28 13:22] LABS: SARS PCR* Negative SARS-CoV-2 (Negative)
[2021-11-28 15:00] VITALS: TEMP 36.4; O2SAT 96
--- NOTE | 2021-11-28 15:58 | PC.NURSE ---
COVID OUTBREAK TESTING: Resident provided verbal consent for outbreak COVID testing. Resident is currently asymptomatic. Resident/family will be notified only if resident is positive.
[2021-11-28] MEDS: TRAZODONE HCL 50 MG TABLET PO (19:42)
[2021-11-28] MEDS: ATORVASTATIN 10 MG TABLET PO (19:42)
[2021-11-28] MEDS: SENNOSIDES 1 TAB TABLET PO (19:42)
[2021-11-29 02:27] VITALS: TEMP 36.6; O2SAT 90
[2021-11-29] MEDS: ASPIRIN 81 MG TABLET EC PO (07:13)
[2021-11-29] MEDS: ACETAMINOPHEN 500 MG TABLET 1000 MG PO ×2 (07:13→19:22)
[2021-11-29] MEDS: VENLAFAXINE HCL ER 37.5 MG CAPSULE PO (07:13)
[2021-11-29] MEDS: OMEPRAZOLE 20 MG CAPSULE DR PO (07:13)
[2021-11-29] MEDS: VENLAFAXINE ER 75 MG CAPSULE PO (07:13)
[2021-11-29] MEDS: ALBUTEROL INHALER 2 PUFF IH ×3 (07:13→19:22)
[2021-11-29] MEDS: OCUVITE TABLET 2 TAB PO ×2 (07:14→15:53)
[2021-11-29] MEDS: METOPROLOL SUCCINATE (XL) 50 MG TAB PO (07:14)
[2021-11-29] MEDS: FOLIC ACID 800 MCG 1 EACH PO (07:14)
[2021-11-29] MEDS: CARBOXYMETHYLCELLULOSE (REFRESH PLUS) TEARS 1 DROP EYE-BOTH ×3 (07:14→19:22)
[2021-11-29] MEDS: NICOTINE 4 MG GUM BUCCAL ×2 (07:25→17:15)
[2021-11-29] MEDS: FUROSEMIDE 40 MG TABLET 60 MG PO (08:22)
[2021-11-29] MEDS: METFORMIN 1,000 MG TABLET 1000 MG PO ×2 (08:23→17:15)
[2021-11-29] MEDS: POTASSIUM CHLORIDE 10 MEQ CAPSULE ER PO (08:23)
[2021-11-29 10:30] VITALS: TEMP 36.4; O2SAT 96
--- NOTE | 2021-11-29 10:30 | PC.NURSE ---
Outing: Went out with son @ 1000 for personal outing. Meds for 1200, 1600 & 1700 sent.
--- NOTE | 2021-11-29 13:51 | PC.NURSE ---
Return: Back from outing. 1600 & 1700 meds returned.
[2021-11-29] MEDS: SENNOSIDES 1 TAB TABLET PO (19:22)
[2021-11-29] MEDS: ATORVASTATIN 10 MG TABLET PO (19:22)
[2021-11-29] MEDS: TRAZODONE HCL 50 MG TABLET PO (19:23)
[2021-11-29 20:59] VITALS: TEMP 36.7; O2SAT 94
[2021-11-29 23:00] VITALS: TEMP 37.1; O2SAT 90
--- NOTE | 2021-11-30 02:13 | PC.NURSE ---
Week #2: Resident is not a fall risk and, has had no falls in the last month. Temporary care plan reviewed, no change. Care plan reviewed, no change. Resident is independent with bed mobility and transfers, uses a 4ww. Will call when needing assistance.
[2021-11-30] MEDS: OMEPRAZOLE 20 MG CAPSULE DR PO (06:37)
[2021-11-30] MEDS: METOPROLOL SUCCINATE (XL) 50 MG TAB PO (07:17)
[2021-11-30] MEDS: METFORMIN 1,000 MG TABLET 1000 MG PO ×2 (07:17→17:34)
[2021-11-30] MEDS: ASPIRIN 81 MG TABLET EC PO (07:17)
[2021-11-30] MEDS: FUROSEMIDE 40 MG TABLET 60 MG PO (07:17)
[2021-11-30] MEDS: ALBUTEROL INHALER 2 PUFF IH ×4 (07:17→19:36)
[2021-11-30] MEDS: ACETAMINOPHEN 500 MG TABLET 1000 MG PO ×3 (07:17→19:36)
[2021-11-30] MEDS: VENLAFAXINE ER 75 MG CAPSULE PO (07:17)
[2021-11-30] MEDS: NICOTINE 4 MG GUM BUCCAL ×2 (07:18→18:54)
[2021-11-30] MEDS: OCUVITE TABLET 2 TAB PO ×2 (07:18→15:52)
[2021-11-30] MEDS: POTASSIUM CHLORIDE 10 MEQ CAPSULE ER PO (07:18)
[2021-11-30] MEDS: FOLIC ACID 800 MCG 1 EACH PO (07:18)
[2021-11-30] MEDS: CARBOXYMETHYLCELLULOSE (REFRESH PLUS) TEARS 1 DROP EYE-BOTH ×4 (07:18→19:36)
--- NOTE | 2021-11-30 07:31 | PC.NURSE ---
Week #2: Care plan problems - and temporary care plan reviewed. No changes made. Nothing added to temporary care plan. Resident is independent with ambulation, transfers, bed mobility/repositioning. Ambulates with a 4 wheeled walker. Top side rails in bed up to aid for positioning. Fall: No falls this past month. Remains a low fall risk according to assessment done on 09/29/21.
[2021-11-30] MEDS: VENLAFAXINE HCL ER 37.5 MG CAPSULE PO (07:35)
[2021-11-30 10:57] VITALS: TEMP 36.6; O2SAT 98
[2021-11-30 15:00] VITALS: TEMP 36.6; O2SAT 97
--- NOTE | 2021-11-30 15:58 | PC.SPIRITC ---
provided visit for connection and support.
[2021-11-30] MEDS: OXYCODONE 5 MG TABLET PO (18:52)
[2021-11-30] MEDS: ATORVASTATIN 10 MG TABLET PO (19:36)
[2021-11-30] MEDS: TRAZODONE HCL 50 MG TABLET PO (19:36)
[2021-11-30] MEDS: SENNOSIDES 1 TAB TABLET PO (19:36)
[2021-11-30 23:00] VITALS: TEMP 36.3; O2SAT 94
[2021-12-01] MEDS: OMEPRAZOLE 20 MG CAPSULE DR PO (07:07)
[2021-12-01] MEDS: ALBUTEROL INHALER 2 PUFF IH ×4 (07:07→19:59)
[2021-12-01] MEDS: ACETAMINOPHEN 500 MG TABLET 1000 MG PO ×3 (07:07→20:00)
[2021-12-01] MEDS: ASPIRIN 81 MG TABLET EC PO (07:07)
[2021-12-01] MEDS: FOLIC ACID 800 MCG 1 EACH PO (07:07)
[2021-12-01] MEDS: VENLAFAXINE HCL ER 37.5 MG CAPSULE PO (07:07)
[2021-12-01] MEDS: VENLAFAXINE ER 75 MG CAPSULE PO (07:07)
[2021-12-01] MEDS: METOPROLOL SUCCINATE (XL) 50 MG TAB PO (07:07)
[2021-12-01] MEDS: OCUVITE TABLET 2 TAB PO ×2 (07:08→16:11)
[2021-12-01] MEDS: CARBOXYMETHYLCELLULOSE (REFRESH PLUS) TEARS 1 DROP EYE-BOTH ×3 (07:08→19:59)
[2021-12-01] MEDS: FUROSEMIDE 40 MG TABLET 60 MG PO (08:38)
[2021-12-01] MEDS: METFORMIN 1,000 MG TABLET 1000 MG PO ×2 (08:39→17:13)
[2021-12-01] MEDS: POTASSIUM CHLORIDE 10 MEQ CAPSULE ER PO (08:39)
[2021-12-01 10:05] VITALS: BP 108/68; RESP 18; TEMP 36.3; O2SAT 95
[2021-12-01 13:36] VITALS: BMI 20.2
[2021-12-01] MEDS: NICOTINE 4 MG GUM BUCCAL (17:13)
[2021-12-01 18:40] VITALS: TEMP 36.4; O2SAT 97
[2021-12-01] MEDS: ATORVASTATIN 10 MG TABLET PO (20:00)
[2021-12-01] MEDS: SENNOSIDES 1 TAB TABLET PO (20:00)
[2021-12-01] MEDS: TRAZODONE HCL 50 MG TABLET PO (20:00)
[2021-12-01 23:00] VITALS: TEMP 36.6; O2SAT 96
[2021-12-02] MEDS: VENLAFAXINE ER 75 MG CAPSULE PO (07:08)
[2021-12-02] MEDS: ACETAMINOPHEN 500 MG TABLET 1000 MG PO ×3 (07:08→19:42)
[2021-12-02] MEDS: ASPIRIN 81 MG TABLET EC PO (07:08)
[2021-12-02] MEDS: OCUVITE TABLET 2 TAB PO ×2 (07:08→16:16)
[2021-12-02] MEDS: ALBUTEROL INHALER 2 PUFF IH ×4 (07:08→19:42)
[2021-12-02] MEDS: VENLAFAXINE HCL ER 37.5 MG CAPSULE PO (07:08)
[2021-12-02] MEDS: METOPROLOL SUCCINATE (XL) 50 MG TAB PO (07:08)
[2021-12-02] MEDS: OMEPRAZOLE 20 MG CAPSULE DR PO (07:08)
[2021-12-02] MEDS: CARBOXYMETHYLCELLULOSE (REFRESH PLUS) TEARS 1 DROP EYE-BOTH ×4 (07:08→19:42)
[2021-12-02] MEDS: METFORMIN 1,000 MG TABLET 1000 MG PO ×2 (08:27→17:08)
[2021-12-02] MEDS: POTASSIUM CHLORIDE 10 MEQ CAPSULE ER PO (08:27)
[2021-12-02] MEDS: FUROSEMIDE 40 MG TABLET 60 MG PO (08:27)
[2021-12-02 10:44] VITALS: TEMP 36.6; O2SAT 94
[2021-12-02] MEDS: ATORVASTATIN 10 MG TABLET PO (19:42)
[2021-12-02] MEDS: TRAZODONE HCL 50 MG TABLET PO (19:42)
[2021-12-02] MEDS: SENNOSIDES 1 TAB TABLET PO (19:42)
[2021-12-02 21:17] VITALS: TEMP 36.6; O2SAT 95
[2021-12-02 23:00] VITALS: TEMP 36.6; O2SAT 90
[2021-12-03] MEDS: OMEPRAZOLE 20 MG CAPSULE DR PO (06:52)
[2021-12-03] MEDS: VENLAFAXINE HCL ER 37.5 MG CAPSULE PO (07:28)
[2021-12-03] MEDS: ALBUTEROL INHALER 2 PUFF IH ×4 (07:28→19:36)
[2021-12-03] MEDS: FUROSEMIDE 40 MG TABLET 60 MG PO (07:28)
[2021-12-03] MEDS: METFORMIN 1,000 MG TABLET 1000 MG PO ×2 (07:28→19:36)
[2021-12-03] MEDS: ASPIRIN 81 MG TABLET EC PO (07:28)
[2021-12-03] MEDS: VENLAFAXINE ER 75 MG CAPSULE PO (07:28)
[2021-12-03] MEDS: ACETAMINOPHEN 500 MG TABLET 1000 MG PO ×3 (07:28→19:36)
[2021-12-03] MEDS: NICOTINE 4 MG GUM BUCCAL ×2 (07:29→12:41)
[2021-12-03] MEDS: OCUVITE TABLET 2 TAB PO ×2 (07:29→16:00)
[2021-12-03] MEDS: POTASSIUM CHLORIDE 10 MEQ CAPSULE ER PO (07:29)
[2021-12-03] MEDS: METOPROLOL SUCCINATE (XL) 50 MG TAB PO (07:29)
[2021-12-03] MEDS: FOLIC ACID 800 MCG 1 EACH PO (07:29)
[2021-12-03] MEDS: CARBOXYMETHYLCELLULOSE (REFRESH PLUS) TEARS 1 DROP EYE-BOTH ×4 (07:29→19:37)
[2021-12-03 10:35] VITALS: TEMP 36.3; O2SAT 95
[2021-12-03] MEDS: ATORVASTATIN 10 MG TABLET PO (19:37)
[2021-12-03] MEDS: TRAZODONE HCL 50 MG TABLET PO (19:37)
[2021-12-03] MEDS: SENNOSIDES 1 TAB TABLET PO (19:37)
[2021-12-03 21:37] VITALS: TEMP 36.8; O2SAT 97
[2021-12-03 23:00] VITALS: TEMP 36.4; O2SAT 90
[2021-12-04] MEDS: OMEPRAZOLE 20 MG CAPSULE DR PO (06:54)
[2021-12-04] MEDS: NICOTINE 4 MG GUM BUCCAL (06:54)
[2021-12-04] MEDS: VENLAFAXINE HCL ER 37.5 MG CAPSULE PO (07:20)
[2021-12-04] MEDS: FUROSEMIDE 40 MG TABLET 60 MG PO (07:20)
[2021-12-04] MEDS: METFORMIN 1,000 MG TABLET 1000 MG PO ×2 (07:20→19:12)
[2021-12-04] MEDS: ALBUTEROL INHALER 2 PUFF IH ×4 (07:20→19:14)
[2021-12-04] MEDS: METOPROLOL SUCCINATE (XL) 50 MG TAB PO (07:20)
[2021-12-04] MEDS: ACETAMINOPHEN 500 MG TABLET 1000 MG PO ×3 (07:20→19:14)
[2021-12-04] MEDS: FOLIC ACID 800 MCG 1 EACH PO (07:20)
[2021-12-04] MEDS: VENLAFAXINE ER 75 MG CAPSULE PO (07:20)
[2021-12-04] MEDS: ASPIRIN 81 MG TABLET EC PO (07:20)
[2021-12-04] MEDS: POTASSIUM CHLORIDE 10 MEQ CAPSULE ER PO (07:20)
[2021-12-04] MEDS: OCUVITE TABLET 2 TAB PO ×2 (07:20→15:32)
[2021-12-04] MEDS: CARBOXYMETHYLCELLULOSE (REFRESH PLUS) TEARS 1 DROP EYE-BOTH ×4 (07:21→19:14)
[2021-12-04 10:39] VITALS: TEMP 36.3; O2SAT 95
[2021-12-04] MEDS: ATORVASTATIN 10 MG TABLET PO (19:14)
[2021-12-04] MEDS: SENNOSIDES 1 TAB TABLET PO (19:15)
[2021-12-04] MEDS: TRAZODONE HCL 50 MG TABLET PO (19:15)
[2021-12-04 21:11] VITALS: TEMP 36.8; O2SAT 99
--- NOTE | 2021-12-04 21:51 | PC.NURSE ---
Pain: Resident complained of pain in her toe on her right foot. She recieved an Oxycodone.
[2021-12-04 23:00] VITALS: TEMP 36.6; O2SAT 91
[2021-12-05] MEDS: VENLAFAXINE ER 75 MG CAPSULE PO (07:06)
[2021-12-05] MEDS: ALBUTEROL INHALER 2 PUFF IH ×4 (07:06→19:16)
[2021-12-05] MEDS: OMEPRAZOLE 20 MG CAPSULE DR PO (07:06)
[2021-12-05] MEDS: ACETAMINOPHEN 500 MG TABLET 1000 MG PO ×3 (07:06→19:16)
[2021-12-05] MEDS: ASPIRIN 81 MG TABLET EC PO (07:06)
[2021-12-05] MEDS: OCUVITE TABLET 2 TAB PO ×2 (07:07→15:09)
[2021-12-05] MEDS: METOPROLOL SUCCINATE (XL) 50 MG TAB PO (07:07)
[2021-12-05] MEDS: FOLIC ACID 800 MCG 1 EACH PO (07:07)
[2021-12-05] MEDS: VENLAFAXINE HCL ER 37.5 MG CAPSULE PO (07:07)
[2021-12-05] MEDS: CARBOXYMETHYLCELLULOSE (REFRESH PLUS) TEARS 1 DROP EYE-BOTH ×4 (07:07→19:16)
[2021-12-05] MEDS: NICOTINE 4 MG GUM BUCCAL (07:15)
[2021-12-05] MEDS: METFORMIN 1,000 MG TABLET 1000 MG PO ×2 (08:31→17:55)
[2021-12-05] MEDS: POTASSIUM CHLORIDE 10 MEQ CAPSULE ER PO (08:31)
[2021-12-05] MEDS: FUROSEMIDE 40 MG TABLET 60 MG PO (08:31)
[2021-12-05 10:40] VITALS: TEMP 37.1; O2SAT 93
[2021-12-05] MEDS: OXYCODONE 5 MG TABLET PO ×2 (13:30→19:17)
--- NOTE | 2021-12-05 13:48 | PC.NURSE ---
COVID OUTBREAK TESTING: Resident provided verbal consent for outbreak COVID testing. Resident is currently asymptomatic. Resident/family will be notified only if resident is positive.
[2021-12-05 15:00] VITALS: TEMP 36.8; O2SAT 96
[2021-12-05 16:43] LABS: SARS PCR* Negative SARS-CoV-2 (Negative)
[2021-12-05] MEDS: TRAZODONE HCL 50 MG TABLET PO (19:16)
[2021-12-05] MEDS: ATORVASTATIN 10 MG TABLET PO (19:16)
[2021-12-05] MEDS: SENNOSIDES 1 TAB TABLET PO (19:16)
[2021-12-06 00:01] VITALS: TEMP 36.6; O2SAT 96
[2021-12-06] MEDS: ACETAMINOPHEN 500 MG TABLET 1000 MG PO ×3 (07:25→19:41)
[2021-12-06] MEDS: OMEPRAZOLE 20 MG CAPSULE DR PO (07:25)
[2021-12-06] MEDS: ASPIRIN 81 MG TABLET EC PO (07:25)
[2021-12-06] MEDS: ALBUTEROL INHALER 2 PUFF IH ×4 (07:25→19:41)
[2021-12-06] MEDS: VENLAFAXINE ER 75 MG CAPSULE PO (07:26)
[2021-12-06] MEDS: FUROSEMIDE 40 MG TABLET 60 MG PO (07:26)
[2021-12-06] MEDS: VENLAFAXINE HCL ER 37.5 MG CAPSULE PO (07:26)
[2021-12-06] MEDS: OCUVITE TABLET 2 TAB PO ×2 (07:27→16:05)
[2021-12-06] MEDS: METFORMIN 1,000 MG TABLET 1000 MG PO ×2 (07:27→17:17)
[2021-12-06] MEDS: METOPROLOL SUCCINATE (XL) 50 MG TAB PO (07:27)
[2021-12-06] MEDS: FOLIC ACID 800 MCG 1 EACH PO (07:27)
[2021-12-06] MEDS: CARBOXYMETHYLCELLULOSE (REFRESH PLUS) TEARS 1 DROP EYE-BOTH ×4 (07:28→19:41)
[2021-12-06] MEDS: POTASSIUM CHLORIDE 10 MEQ CAPSULE ER PO (07:28)
[2021-12-06 10:49] VITALS: TEMP 36.6; O2SAT 96
--- NOTE | 2021-12-06 12:12 | PC.NURSE ---
Recert Visit:Resident seen by FINISHING AND SHIPPING SUPERVISORAnselmo. Orders reviewed and renewed of 75 days with changes. Resident c/o to FINISHING AND SHIPPING SUPERVISOR there are certain foods she is having difficulty swallowing. Order:Decrease Metoprolol to 37.5mg daily, ST to evaluate.
[2021-12-06] MEDS: NICOTINE 4 MG GUM BUCCAL (17:17)
[2021-12-06 18:47] VITALS: TEMP 36.6; O2SAT 94
[2021-12-06] MEDS: SENNOSIDES 1 TAB TABLET PO (19:41)
[2021-12-06] MEDS: ATORVASTATIN 10 MG TABLET PO (19:41)
[2021-12-06] MEDS: TRAZODONE HCL 50 MG TABLET PO (19:41)
[2021-12-06] MEDS: OXYCODONE 5 MG TABLET PO (19:45)
[2021-12-06 21:25] VITALS: BP 116/57
[2021-12-07 01:28] VITALS: TEMP 36.7; O2SAT 96
--- NOTE | 2021-12-07 02:02 | PC.NURSE ---
Week #3:Care plan 30-39 reviewed: no change.Temporary care plan reviewed: Vital signs reviewed with in normal limits.Resident is continent of bowel and bladder. Does wear pull-ups for break through incontinence. Is independent in the bathroom. Skin summary: Swelling on her right hand has healed . No other skin concerns. .
[2021-12-07] MEDS: ASPIRIN 81 MG TABLET EC PO (07:19)
[2021-12-07] MEDS: ALBUTEROL INHALER 2 PUFF IH ×4 (07:19→21:37)
[2021-12-07] MEDS: OMEPRAZOLE 20 MG CAPSULE DR PO (07:19)
[2021-12-07] MEDS: ACETAMINOPHEN 500 MG TABLET 1000 MG PO ×3 (07:19→21:37)
[2021-12-07] MEDS: VENLAFAXINE ER 75 MG CAPSULE PO (07:20)
[2021-12-07] MEDS: FUROSEMIDE 40 MG TABLET 60 MG PO (07:20)
[2021-12-07] MEDS: VENLAFAXINE HCL ER 37.5 MG CAPSULE PO (07:20)
[2021-12-07] MEDS: METFORMIN 1,000 MG TABLET 1000 MG PO ×2 (07:20→17:47)
[2021-12-07] MEDS: METOPROLOL SUCCINATE (XL) 50 MG TAB 37.5 MG PO (07:22)
[2021-12-07] MEDS: CARBOXYMETHYLCELLULOSE (REFRESH PLUS) TEARS 1 DROP EYE-BOTH ×4 (07:23→21:36)
[2021-12-07] MEDS: OCUVITE TABLET 2 TAB PO ×2 (07:23→16:31)
[2021-12-07] MEDS: POTASSIUM CHLORIDE 10 MEQ CAPSULE ER PO (07:23)
[2021-12-07] MEDS: FOLIC ACID 800 MCG 1 EACH PO (07:23)
[2021-12-07 10:57] VITALS: TEMP 36.7; O2SAT 92
--- NOTE | 2021-12-07 13:35 | PC.PHA ---
Pharmacy Review ~ Patient recently had prn albuterol inhaler added and 50% decrease in metoprolol dose. Compared to October, oxycodone prn need has decreased thus far in November. Renal Dosing of Oseltamivir: Treatment:30 mg po Daily for 5 days Prophylaxis:30 mg po q48h for total of 7 doses or longer (see policy).
[2021-12-07 16:00] VITALS: BP 121/64
[2021-12-07] MEDS: OXYCODONE 5 MG TABLET PO (17:47)
[2021-12-07] MEDS: NICOTINE 4 MG GUM BUCCAL (17:47)
[2021-12-07] MEDS: SENNOSIDES 1 TAB TABLET PO (21:36)
[2021-12-07] MEDS: TRAZODONE HCL 50 MG TABLET PO (21:36)
[2021-12-07] MEDS: ATORVASTATIN 10 MG TABLET PO (21:36)
[2021-12-08] MEDS: OMEPRAZOLE 20 MG CAPSULE DR PO (06:50)
[2021-12-08] MEDS: NICOTINE 4 MG GUM BUCCAL (07:25)
[2021-12-08] MEDS: FUROSEMIDE 40 MG TABLET 60 MG PO (07:42)
[2021-12-08] MEDS: METFORMIN 1,000 MG TABLET 1000 MG PO ×2 (07:42→19:28)
[2021-12-08] MEDS: VENLAFAXINE ER 75 MG CAPSULE PO (07:42)
[2021-12-08] MEDS: ASPIRIN 81 MG TABLET EC PO (07:42)
[2021-12-08] MEDS: ALBUTEROL INHALER 2 PUFF IH ×4 (07:42→19:29)
[2021-12-08] MEDS: ACETAMINOPHEN 500 MG TABLET 1000 MG PO ×3 (07:42→19:29)
[2021-12-08] MEDS: METOPROLOL SUCCINATE (XL) 50 MG TAB 37.5 MG PO (07:42)
[2021-12-08] MEDS: FOLIC ACID 800 MCG 1 EACH PO (07:42)
[2021-12-08] MEDS: VENLAFAXINE HCL ER 37.5 MG CAPSULE PO (07:42)
[2021-12-08] MEDS: OCUVITE TABLET 2 TAB PO ×2 (07:43→15:53)
[2021-12-08] MEDS: POTASSIUM CHLORIDE 10 MEQ CAPSULE ER PO (07:43)
[2021-12-08] MEDS: CARBOXYMETHYLCELLULOSE (REFRESH PLUS) TEARS 1 DROP EYE-BOTH ×4 (07:43→19:30)
[2021-12-08 10:05] VITALS: BMI 19.5
[2021-12-08 11:15] VITALS: BP 115/73; PULSE 72; RESP 20; TEMP 36.2; O2SAT 95
--- NOTE | 2021-12-08 12:01 | PC.NURSE ---
Week #3: Care plan problems 30-39 and temporary care plan reviewed. No changes made. Nothing added to temporary care plan. Resident is continent of bladder & bowel. Is independent with all toileting needs: pericares, pads and clothing adjustment. Ambulates to the bathroom with a walker. Will call for assist as needed. Skin: No issues at this time. Is able to report with concerns. Skin is checked during cares.
[2021-12-08] MEDS: ATORVASTATIN 10 MG TABLET PO (19:29)
[2021-12-08] MEDS: SENNOSIDES 1 TAB TABLET PO (19:30)
[2021-12-08] MEDS: TRAZODONE HCL 50 MG TABLET PO (19:30)
[2021-12-09] MEDS: OMEPRAZOLE 20 MG CAPSULE DR PO (07:10)
[2021-12-09] MEDS: VENLAFAXINE HCL ER 37.5 MG CAPSULE PO (07:48)
[2021-12-09] MEDS: ALBUTEROL INHALER 2 PUFF IH ×4 (07:48→19:48)
[2021-12-09] MEDS: VENLAFAXINE ER 75 MG CAPSULE PO (07:48)
[2021-12-09] MEDS: ASPIRIN 81 MG TABLET EC PO (07:48)
[2021-12-09] MEDS: ACETAMINOPHEN 500 MG TABLET 1000 MG PO ×3 (07:48→19:48)
[2021-12-09] MEDS: METOPROLOL SUCCINATE (XL) 50 MG TAB 37.5 MG PO (07:49)
[2021-12-09] MEDS: METFORMIN 1,000 MG TABLET 1000 MG PO ×2 (07:49→17:27)
[2021-12-09] MEDS: OCUVITE TABLET 2 TAB PO ×2 (07:49→15:41)
[2021-12-09] MEDS: POTASSIUM CHLORIDE 10 MEQ CAPSULE ER PO (07:49)
[2021-12-09] MEDS: FUROSEMIDE 40 MG TABLET 60 MG PO (07:49)
[2021-12-09] MEDS: CARBOXYMETHYLCELLULOSE (REFRESH PLUS) TEARS 1 DROP EYE-BOTH ×4 (07:49→19:47)
[2021-12-09] MEDS: NICOTINE 4 MG GUM BUCCAL (08:42)
[2021-12-09] MEDS: TRAZODONE HCL 50 MG TABLET PO (19:48)
[2021-12-09] MEDS: SENNOSIDES 1 TAB TABLET PO (19:48)
[2021-12-09] MEDS: ATORVASTATIN 10 MG TABLET PO (19:48)
[2021-12-10] MEDS: OMEPRAZOLE 20 MG CAPSULE DR PO (07:01)
[2021-12-10] MEDS: ASPIRIN 81 MG TABLET EC PO (07:02)
[2021-12-10] MEDS: ALBUTEROL INHALER 2 PUFF IH (07:02)
[2021-12-10] MEDS: ACETAMINOPHEN 500 MG TABLET 1000 MG PO (07:02)
[2021-12-10] MEDS: CARBOXYMETHYLCELLULOSE (REFRESH PLUS) TEARS 1 DROP EYE-BOTH (07:03)
[2021-12-10] MEDS: OCUVITE TABLET 2 TAB PO (07:03)
[2021-12-10] MEDS: METOPROLOL SUCCINATE (XL) 50 MG TAB 37.5 MG PO (07:03)
[2021-12-10] MEDS: VENLAFAXINE HCL ER 37.5 MG CAPSULE PO (07:03)
[2021-12-10] MEDS: VENLAFAXINE ER 75 MG CAPSULE PO (07:03)
[2021-12-10] MEDS: FOLIC ACID 800 MCG 1 EACH PO (07:03)
[2021-12-10] MEDS: POTASSIUM CHLORIDE 10 MEQ CAPSULE ER PO (07:04)
[2021-12-10] MEDS: METFORMIN 1,000 MG TABLET 1000 MG PO (07:04)
--- NOTE | 2021-12-10 11:56 | PC.NURSE ---
Leave of Absence - Resident left without informing staff and signing in the log book. She was given all her scheduled medications except methotrexate. She also requested 2 tab of PRN Oxycodone. She left with her son at 11:15 and plans to return 12/11 in the evening.
--- NOTE | 2021-12-11 14:49 | PC.NURSE ---
Outing: Resident returned from outing at 1400. Returned medications, stated she took both doses of PRN oxycodone sent with.
[2021-12-11] MEDS: CARBOXYMETHYLCELLULOSE (REFRESH PLUS) TEARS 1 DROP EYE-BOTH ×2 (15:49→19:48)
[2021-12-11] MEDS: ALBUTEROL INHALER 2 PUFF IH ×2 (15:49→19:47)
[2021-12-11] MEDS: OCUVITE TABLET 2 TAB PO (15:49)
[2021-12-11] MEDS: NICOTINE 4 MG GUM BUCCAL (17:24)
[2021-12-11] MEDS: METFORMIN 1,000 MG TABLET 1000 MG PO (17:24)
[2021-12-11] MEDS: ACETAMINOPHEN 500 MG TABLET 1000 MG PO (19:47)
[2021-12-11] MEDS: ATORVASTATIN 10 MG TABLET PO (19:47)
[2021-12-11] MEDS: TRAZODONE HCL 50 MG TABLET PO (19:48)
--- NOTE | 2021-12-11 21:07 | PC.NURSE ---
Status: Resident reported having several loose BM's while she was out with family. 1x incontinent. Scheduled Senna was held HS. Resident also reported having cramping in bonita LE's HS for the past week. Will continue to monitor for sx, note left for CUPOLA MELTER HELPER to review.
[2021-12-12] MEDS: OMEPRAZOLE 20 MG CAPSULE DR PO (06:51)
[2021-12-12] MEDS: METFORMIN 1,000 MG TABLET 1000 MG PO ×2 (08:42→17:21)
[2021-12-12] MEDS: ACETAMINOPHEN 500 MG TABLET 1000 MG PO ×3 (08:42→19:40)
[2021-12-12] MEDS: METOPROLOL SUCCINATE (XL) 50 MG TAB 37.5 MG PO (08:42)
[2021-12-12] MEDS: VENLAFAXINE HCL ER 37.5 MG CAPSULE PO (08:42)
[2021-12-12] MEDS: OCUVITE TABLET 2 TAB PO ×2 (08:42→15:36)
[2021-12-12] MEDS: ALBUTEROL INHALER 2 PUFF IH ×4 (08:42→19:40)
[2021-12-12] MEDS: ASPIRIN 81 MG TABLET EC PO (08:42)
[2021-12-12] MEDS: FUROSEMIDE 40 MG TABLET 60 MG PO (08:42)
[2021-12-12] MEDS: VENLAFAXINE ER 75 MG CAPSULE PO (08:42)
[2021-12-12] MEDS: CARBOXYMETHYLCELLULOSE (REFRESH PLUS) TEARS 1 DROP EYE-BOTH ×4 (08:42→19:40)
[2021-12-12] MEDS: POTASSIUM CHLORIDE 10 MEQ CAPSULE ER PO (08:42)
[2021-12-12] MEDS: FOLIC ACID 800 MCG 1 EACH PO (08:42)
[2021-12-12] MEDS: NICOTINE 4 MG GUM BUCCAL ×2 (08:57→15:52)
[2021-12-12] MEDS: OXYCODONE 5 MG TABLET PO (18:27)
[2021-12-12] MEDS: SENNOSIDES 1 TAB TABLET PO (19:40)
[2021-12-12] MEDS: ATORVASTATIN 10 MG TABLET PO (19:40)
[2021-12-12] MEDS: TRAZODONE HCL 50 MG TABLET PO (19:40)
[2021-12-13] MEDS: OMEPRAZOLE 20 MG CAPSULE DR PO (06:38)
[2021-12-13] MEDS: CARBOXYMETHYLCELLULOSE (REFRESH PLUS) TEARS 1 DROP EYE-BOTH ×4 (08:48→20:07)
[2021-12-13] MEDS: VENLAFAXINE ER 75 MG CAPSULE PO (08:48)
[2021-12-13] MEDS: ALBUTEROL INHALER 2 PUFF IH ×4 (08:48→20:07)
[2021-12-13] MEDS: METFORMIN 1,000 MG TABLET 1000 MG PO ×2 (08:48→17:04)
[2021-12-13] MEDS: ASPIRIN 81 MG TABLET EC PO (08:48)
[2021-12-13] MEDS: FUROSEMIDE 40 MG TABLET 60 MG PO (08:48)
[2021-12-13] MEDS: FOLIC ACID 800 MCG 1 EACH PO (08:48)
[2021-12-13] MEDS: POTASSIUM CHLORIDE 10 MEQ CAPSULE ER PO (08:48)
[2021-12-13] MEDS: ACETAMINOPHEN 500 MG TABLET 1000 MG PO ×3 (08:48→20:07)
[2021-12-13] MEDS: OCUVITE TABLET 2 TAB PO ×2 (08:48→16:04)
[2021-12-13] MEDS: METOPROLOL SUCCINATE (XL) 50 MG TAB 37.5 MG PO (08:48)
[2021-12-13] MEDS: VENLAFAXINE HCL ER 37.5 MG CAPSULE PO (08:48)
[2021-12-13] MEDS: NICOTINE 4 MG GUM BUCCAL ×3 (08:49→17:06)
--- NOTE | 2021-12-13 09:49 | PC.NURSE ---
Status/Order: Asnelmo DWYER here. Updated of resident c/o of leg cramps at night. Order: Tylenol 1000mg PO daily PRN, Mag+ 12/15/21.
--- NOTE | 2021-12-13 12:22 | REH.OT ---
Resident is independent with hot liquids.
[2021-12-13] MEDS: ATORVASTATIN 10 MG TABLET PO (20:08)
[2021-12-13] MEDS: SENNOSIDES 1 TAB TABLET PO (20:08)
[2021-12-13] MEDS: TRAZODONE HCL 50 MG TABLET PO (20:08)
--- NOTE | 2021-12-14 03:11 | PC.NURSE ---
Week #4: No noted change in behavior/mood. Receives trazodone 50mg at HS and venlafaxine 112.5mg daily with no adverse effects. Temporary care plan and care plan problems 40-119 reviewed with no changes or additions. NO change to communication, vision, hearing, or orientation. Is able to communicate needs. Difficulty hearing in some environments. Visual impairment is corrected with glasses. Orientation/cognition intact. Can self administer medications. No behaviors observed on noc shift.
--- NOTE | 2021-12-14 06:37 | PC.NURSE ---
Week #4: Care plan problems 40-119 and temporary care plan reviewed. No changes made. Nothing added to temporary care plan. No changes in communication, hearing, vision, orientation. Resident does communicate needs. Cognition intact. Wears glasses. Has hearing difficulties in some environments, no hearing device used. Complained of leg cramps for this past days during the night. Issue addressed, has an order for labs on 12/15/21 & Tylenol 1000mg @ HS PRN. Is able to self administer medications. Nurse to check meds are taken. VS fine. Mood/Behavior: No issues. Continues on Trazodone 50mg @ HS, Effexor 112.5mg daily. No adverse effects noted.
[2021-12-14] MEDS: ALBUTEROL INHALER 2 PUFF IH ×4 (07:33→19:20)
[2021-12-14] MEDS: ACETAMINOPHEN 500 MG TABLET 1000 MG PO ×3 (07:33→19:20)
[2021-12-14] MEDS: ASPIRIN 81 MG TABLET EC PO (07:33)
[2021-12-14] MEDS: OMEPRAZOLE 20 MG CAPSULE DR PO (07:33)
[2021-12-14] MEDS: METOPROLOL SUCCINATE (XL) 50 MG TAB 37.5 MG PO (07:34)
[2021-12-14] MEDS: FUROSEMIDE 40 MG TABLET 60 MG PO (07:34)
[2021-12-14] MEDS: OCUVITE TABLET 2 TAB PO ×2 (07:34→15:34)
[2021-12-14] MEDS: FOLIC ACID 800 MCG 1 EACH PO (07:34)
[2021-12-14] MEDS: METFORMIN 1,000 MG TABLET 1000 MG PO ×2 (07:34→17:33)
[2021-12-14] MEDS: POTASSIUM CHLORIDE 10 MEQ CAPSULE ER PO (07:34)
[2021-12-14] MEDS: VENLAFAXINE ER 75 MG CAPSULE PO (07:34)
[2021-12-14] MEDS: VENLAFAXINE HCL ER 37.5 MG CAPSULE PO (07:34)
[2021-12-14] MEDS: CARBOXYMETHYLCELLULOSE (REFRESH PLUS) TEARS 1 DROP EYE-BOTH ×4 (07:35→19:20)
[2021-12-14 15:54] VITALS: BMI 19.5
[2021-12-14] MEDS: NICOTINE 4 MG GUM BUCCAL (17:33)
[2021-12-14] MEDS: OXYCODONE 5 MG TABLET PO (18:44)
[2021-12-14] MEDS: ATORVASTATIN 10 MG TABLET PO (19:20)
[2021-12-14] MEDS: SENNOSIDES 1 TAB TABLET PO (19:20)
[2021-12-14] MEDS: TRAZODONE HCL 50 MG TABLET PO (19:20)
[2021-12-15] MEDS: OMEPRAZOLE 20 MG CAPSULE DR PO (06:46)
[2021-12-15 07:00] VITALS: BP 128/70; PULSE 88; RESP 18; TEMP 36.6; O2SAT 98
[2021-12-15] MEDS: ALBUTEROL INHALER 2 PUFF IH ×4 (07:28→19:53)
[2021-12-15] MEDS: ASPIRIN 81 MG TABLET EC PO (07:28)
[2021-12-15] MEDS: VENLAFAXINE ER 75 MG CAPSULE PO (07:28)
[2021-12-15] MEDS: METFORMIN 1,000 MG TABLET 1000 MG PO ×2 (07:28→17:08)
[2021-12-15] MEDS: VENLAFAXINE HCL ER 37.5 MG CAPSULE PO (07:28)
[2021-12-15] MEDS: ACETAMINOPHEN 500 MG TABLET 1000 MG PO ×3 (07:28→19:53)
[2021-12-15] MEDS: METOPROLOL SUCCINATE (XL) 50 MG TAB 37.5 MG PO (07:28)
[2021-12-15] MEDS: FUROSEMIDE 40 MG TABLET 60 MG PO (07:28)
[2021-12-15] MEDS: FOLIC ACID 800 MCG 1 EACH PO (07:29)
[2021-12-15] MEDS: POTASSIUM CHLORIDE 10 MEQ CAPSULE ER PO (07:29)
[2021-12-15] MEDS: CARBOXYMETHYLCELLULOSE (REFRESH PLUS) TEARS 1 DROP EYE-BOTH ×4 (07:29→19:53)
[2021-12-15] MEDS: OCUVITE TABLET 2 TAB PO ×2 (07:29→16:21)
[2021-12-15 08:59] LABS: Magnesium* 1.6 mg/dL (1.5-2.6)
[2021-12-15] MEDS: MAG HYDROX/ALUMINUM HYD/SIMETH 30 ML ORAL.SUSP 15 ML PO (09:09)
--- NOTE | 2021-12-15 13:14 | PC.NURSE ---
Lab: Magnesium result reviewed by Anselmo DWYER. No new order. Resident notified of result.
[2021-12-15 13:52] VITALS: BMI 19.7
[2021-12-15] MEDS: NICOTINE 4 MG GUM BUCCAL (17:08)
[2021-12-15] MEDS: MINERAL OIL 0.5 ML EAR-BOTH (19:52)
[2021-12-15] MEDS: ATORVASTATIN 10 MG TABLET PO (19:53)
[2021-12-15] MEDS: TRAZODONE HCL 50 MG TABLET PO (19:53)
[2021-12-15] MEDS: SENNOSIDES 1 TAB TABLET PO (19:53)
[2021-12-15] MEDS: HYDROCORTISONE 1 % CREAM 1 APPLIC TOPICAL (19:59)
--- NOTE | 2021-12-15 21:17 | PC.NURSE ---
Status: Resident c/o itching between toes on R foot. PRN hydrocortisone cream applied with relief.
[2021-12-16] MEDS: OMEPRAZOLE 20 MG CAPSULE DR PO (07:03)
[2021-12-16] MEDS: ASPIRIN 81 MG TABLET EC PO (07:15)
[2021-12-16] MEDS: FUROSEMIDE 40 MG TABLET 60 MG PO (07:15)
[2021-12-16] MEDS: METFORMIN 1,000 MG TABLET 1000 MG PO ×2 (07:15→17:27)
[2021-12-16] MEDS: ALBUTEROL INHALER 2 PUFF IH ×4 (07:15→19:28)
[2021-12-16] MEDS: ACETAMINOPHEN 500 MG TABLET 1000 MG PO ×3 (07:15→19:27)
[2021-12-16] MEDS: VENLAFAXINE HCL ER 37.5 MG CAPSULE PO (07:15)
[2021-12-16] MEDS: VENLAFAXINE ER 75 MG CAPSULE PO (07:15)
[2021-12-16] MEDS: METOPROLOL SUCCINATE (XL) 50 MG TAB 37.5 MG PO (07:16)
[2021-12-16] MEDS: POTASSIUM CHLORIDE 10 MEQ CAPSULE ER PO (07:16)
[2021-12-16] MEDS: OCUVITE TABLET 2 TAB PO ×2 (07:16→16:12)
[2021-12-16] MEDS: CARBOXYMETHYLCELLULOSE (REFRESH PLUS) TEARS 1 DROP EYE-BOTH ×4 (07:16→19:28)
[2021-12-16] MEDS: NICOTINE 4 MG GUM BUCCAL (17:28)
[2021-12-16] MEDS: ATORVASTATIN 10 MG TABLET PO (19:28)
[2021-12-16] MEDS: TRAZODONE HCL 50 MG TABLET PO (19:28)
[2021-12-16] MEDS: SENNOSIDES 1 TAB TABLET PO (19:28)
[2021-12-16] MEDS: HYDROCORTISONE 1 % CREAM 1 APPLIC TOPICAL (19:39)
--- NOTE | 2021-12-16 20:48 | PC.NURSE ---
Skin: Resident has red, flakey skin in between the first and second toe on the right foot. Resident reports that it is itchy. Hydrocortisone cream PRN applied to the effected area at 1939. Put note in BUSINESS OPERATIONS COORDINATOR book due to history of fungal infections on the feet.
[2021-12-17] MEDS: OMEPRAZOLE 20 MG CAPSULE DR PO (06:47)
[2021-12-17] MEDS: NICOTINE 4 MG GUM BUCCAL ×2 (07:30→17:22)
[2021-12-17] MEDS: ALBUTEROL INHALER 2 PUFF IH ×4 (07:42→19:28)
[2021-12-17] MEDS: ACETAMINOPHEN 500 MG TABLET 1000 MG PO ×3 (07:42→19:27)
[2021-12-17] MEDS: ASPIRIN 81 MG TABLET EC PO (07:42)
[2021-12-17] MEDS: VENLAFAXINE ER 75 MG CAPSULE PO (07:42)
[2021-12-17] MEDS: METOPROLOL SUCCINATE (XL) 50 MG TAB 37.5 MG PO (07:43)
[2021-12-17] MEDS: FUROSEMIDE 40 MG TABLET 60 MG PO (07:43)
[2021-12-17] MEDS: OCUVITE TABLET 2 TAB PO ×2 (07:43→16:15)
[2021-12-17] MEDS: FOLIC ACID 800 MCG 1 EACH PO (07:43)
[2021-12-17] MEDS: POTASSIUM CHLORIDE 10 MEQ CAPSULE ER PO (07:43)
[2021-12-17] MEDS: CARBOXYMETHYLCELLULOSE (REFRESH PLUS) TEARS 1 DROP EYE-BOTH ×4 (07:43→19:28)
[2021-12-17] MEDS: VENLAFAXINE HCL ER 37.5 MG CAPSULE PO (07:43)
[2021-12-17] MEDS: METFORMIN 1,000 MG TABLET 1000 MG PO ×2 (07:43→17:22)
[2021-12-17] MEDS: TRAZODONE HCL 50 MG TABLET PO (19:28)
[2021-12-17] MEDS: ATORVASTATIN 10 MG TABLET PO (19:28)
[2021-12-17] MEDS: SENNOSIDES 1 TAB TABLET PO (19:28)
[2021-12-18] MEDS: OMEPRAZOLE 20 MG CAPSULE DR PO (07:11)
[2021-12-18] MEDS: ASPIRIN 81 MG TABLET EC PO (07:13)
[2021-12-18] MEDS: ALBUTEROL INHALER 2 PUFF IH ×4 (07:13→19:19)
[2021-12-18] MEDS: FUROSEMIDE 40 MG TABLET 60 MG PO (07:13)
[2021-12-18] MEDS: METOPROLOL SUCCINATE (XL) 50 MG TAB 37.5 MG PO (07:13)
[2021-12-18] MEDS: FOLIC ACID 800 MCG 1 EACH PO (07:13)
[2021-12-18] MEDS: VENLAFAXINE HCL ER 37.5 MG CAPSULE PO (07:13)
[2021-12-18] MEDS: METFORMIN 1,000 MG TABLET 1000 MG PO ×2 (07:13→17:04)
[2021-12-18] MEDS: VENLAFAXINE ER 75 MG CAPSULE PO (07:13)
[2021-12-18] MEDS: ACETAMINOPHEN 500 MG TABLET 1000 MG PO ×3 (07:13→19:19)
[2021-12-18] MEDS: CARBOXYMETHYLCELLULOSE (REFRESH PLUS) TEARS 1 DROP EYE-BOTH ×4 (07:17→19:20)
[2021-12-18] MEDS: OCUVITE TABLET 2 TAB PO ×2 (07:17→15:41)
[2021-12-18] MEDS: POTASSIUM CHLORIDE 10 MEQ CAPSULE ER PO (07:17)
[2021-12-18] MEDS: NICOTINE 4 MG GUM BUCCAL ×2 (07:40→17:04)
[2021-12-18] MEDS: SENNOSIDES 1 TAB TABLET PO (19:20)
[2021-12-18] MEDS: TRAZODONE HCL 50 MG TABLET PO (19:20)
[2021-12-18] MEDS: ATORVASTATIN 10 MG TABLET PO (19:20)
[2021-12-19] MEDS: OMEPRAZOLE 20 MG CAPSULE DR PO (06:38)
[2021-12-19] MEDS: ASPIRIN 81 MG TABLET EC PO (07:17)
[2021-12-19] MEDS: ALBUTEROL INHALER 2 PUFF IH ×4 (07:17→19:34)
[2021-12-19] MEDS: VENLAFAXINE HCL ER 37.5 MG CAPSULE PO (07:17)
[2021-12-19] MEDS: FOLIC ACID 800 MCG 1 EACH PO (07:17)
[2021-12-19] MEDS: ACETAMINOPHEN 500 MG TABLET 1000 MG PO ×3 (07:17→19:34)
[2021-12-19] MEDS: METOPROLOL SUCCINATE (XL) 50 MG TAB 37.5 MG PO (07:17)
[2021-12-19] MEDS: OCUVITE TABLET 2 TAB PO ×2 (07:17→15:29)
[2021-12-19] MEDS: VENLAFAXINE ER 75 MG CAPSULE PO (07:17)
[2021-12-19] MEDS: CARBOXYMETHYLCELLULOSE (REFRESH PLUS) TEARS 1 DROP EYE-BOTH ×4 (07:18→19:35)
[2021-12-19] MEDS: POTASSIUM CHLORIDE 10 MEQ CAPSULE ER PO (08:31)
[2021-12-19] MEDS: FUROSEMIDE 40 MG TABLET 60 MG PO (08:31)
[2021-12-19] MEDS: METFORMIN 1,000 MG TABLET 1000 MG PO ×2 (08:31→17:14)
[2021-12-19] MEDS: NICOTINE 4 MG GUM BUCCAL (17:15)
[2021-12-19] MEDS: TRAZODONE HCL 50 MG TABLET PO (19:34)
[2021-12-19] MEDS: SENNOSIDES 1 TAB TABLET PO (19:34)
[2021-12-19] MEDS: ATORVASTATIN 10 MG TABLET PO (19:34)
[2021-12-20] MEDS: OMEPRAZOLE 20 MG CAPSULE DR PO (06:53)
[2021-12-20] MEDS: NICOTINE 4 MG GUM BUCCAL ×2 (08:00→17:08)
[2021-12-20] MEDS: ASPIRIN 81 MG TABLET EC PO (08:38)
[2021-12-20] MEDS: METFORMIN 1,000 MG TABLET 1000 MG PO ×2 (08:38→17:08)
[2021-12-20] MEDS: POTASSIUM CHLORIDE 10 MEQ CAPSULE ER PO (08:38)
[2021-12-20] MEDS: VENLAFAXINE ER 75 MG CAPSULE PO (08:38)
[2021-12-20] MEDS: CARBOXYMETHYLCELLULOSE (REFRESH PLUS) TEARS 1 DROP EYE-BOTH ×4 (08:38→19:32)
[2021-12-20] MEDS: METOPROLOL SUCCINATE (XL) 50 MG TAB 37.5 MG PO (08:38)
[2021-12-20] MEDS: OCUVITE TABLET 2 TAB PO ×2 (08:38→16:04)
[2021-12-20] MEDS: ACETAMINOPHEN 500 MG TABLET 1000 MG PO ×3 (08:38→19:32)
[2021-12-20] MEDS: FOLIC ACID 800 MCG 1 EACH PO (08:38)
[2021-12-20] MEDS: ALBUTEROL INHALER 2 PUFF IH ×4 (08:38→19:32)
[2021-12-20] MEDS: VENLAFAXINE HCL ER 37.5 MG CAPSULE PO (08:38)
[2021-12-20] MEDS: FUROSEMIDE 40 MG TABLET 60 MG PO (08:38)
--- NOTE | 2021-12-20 13:31 | PC.NURSE ---
Status/Order: Soak right foot @ HS then thoroughly dry between toes x 1 week for redness & crusty.
--- NOTE | 2021-12-20 15:17 | PC.SOCIAL ---
Resident care conference held today in resident's room. No family present at the conference. Updates from Loreto in nursing, Joelle in Life Enrichment, Kymberly in Nutrition and this worker. Met with resident last week and mood is stable with no concerns. Resident is appreciative of [facility] staff.
[2021-12-20] MEDS: HYDROCORTISONE 1 % CREAM 1 APPLIC TOPICAL (19:32)
[2021-12-20] MEDS: SENNOSIDES 1 TAB TABLET PO (19:32)
[2021-12-20] MEDS: TRAZODONE HCL 50 MG TABLET PO (19:32)
[2021-12-20] MEDS: ATORVASTATIN 10 MG TABLET PO (19:32)
--- NOTE | 2021-12-21 01:16 | PC.NURSE ---
Week #1: Hx of pain r/t RA. Currently receives acetaminophen 1000mg TID and 1000mg daily PRN and oxycodone 5mg Q 6 hours PRN for pain management. Also receives methotrexate and Humira. Recent c/o leg cramps addressed by VETERINARY PRACTICE MANAGER. Temporary care plan and care plan problems 1-19 reviewed with no changes. Able to complete ADLs independently. Requires supervision with bathing. Is on a regular diet and eats independently.
[2021-12-21] MEDS: OMEPRAZOLE 20 MG CAPSULE DR PO (06:27)
--- NOTE | 2021-12-21 06:51 | PC.NURSE ---
Week #1: Care plan problems - and temporary care plan reviewed with update. 12/07 resident seen by . She is independent with dressing, grooming, oral cares, and feeding. Will ask for assistance as needed, usually ask for her hair to be done. SABRINA to supervise with bathing and assist as needed. Is on regular diet per her request. Reported difficulty swallowing with certain kind of food. Seen by ST with recommendations continue to make the type of food choices that work for her. Take small bites & chew well. Pain: Has chronic (R) arm pain. Few weeks ago c/o of leg cramps during the night, noted by SAFETY COUNSELOR. Tylenol 1000mg daily PRN & Magnesium level ordered. Mag+ WNL. Continues on Tylenol 1000mg TID, Oxycodone 5mg Q6H PRN which she ask occasionally with relief. No further complain of leg cramps.
[2021-12-21] MEDS: NICOTINE 4 MG GUM BUCCAL ×2 (08:03→17:19)
[2021-12-21] MEDS: METOPROLOL SUCCINATE (XL) 50 MG TAB 37.5 MG PO (08:35)
[2021-12-21] MEDS: ASPIRIN 81 MG TABLET EC PO (08:35)
[2021-12-21] MEDS: POTASSIUM CHLORIDE 10 MEQ CAPSULE ER PO (08:35)
[2021-12-21] MEDS: OCUVITE TABLET 2 TAB PO ×2 (08:35→16:19)
[2021-12-21] MEDS: VENLAFAXINE ER 75 MG CAPSULE PO (08:35)
[2021-12-21] MEDS: FOLIC ACID 800 MCG 1 EACH PO (08:35)
[2021-12-21] MEDS: ACETAMINOPHEN 500 MG TABLET 1000 MG PO ×3 (08:35→19:04)
[2021-12-21] MEDS: FUROSEMIDE 40 MG TABLET 60 MG PO (08:35)
[2021-12-21] MEDS: ALBUTEROL INHALER 2 PUFF IH ×4 (08:35→19:04)
[2021-12-21] MEDS: METFORMIN 1,000 MG TABLET 1000 MG PO ×2 (08:35→17:18)
[2021-12-21] MEDS: VENLAFAXINE HCL ER 37.5 MG CAPSULE PO (08:36)
[2021-12-21] MEDS: CARBOXYMETHYLCELLULOSE (REFRESH PLUS) TEARS 1 DROP EYE-BOTH ×4 (08:36→19:04)
[2021-12-21] MEDS: ATORVASTATIN 10 MG TABLET PO (19:04)
[2021-12-21] MEDS: TRAZODONE HCL 50 MG TABLET PO (19:04)
[2021-12-21] MEDS: SENNOSIDES 1 TAB TABLET PO (19:04)
[2021-12-22] MEDS: OMEPRAZOLE 20 MG CAPSULE DR PO (06:48)
[2021-12-22] MEDS: NICOTINE 4 MG GUM BUCCAL (06:57)
[2021-12-22] MEDS: FUROSEMIDE 40 MG TABLET 60 MG PO (07:37)
[2021-12-22] MEDS: ACETAMINOPHEN 500 MG TABLET 1000 MG PO (07:37)
[2021-12-22] MEDS: VENLAFAXINE HCL ER 37.5 MG CAPSULE PO (07:37)
[2021-12-22] MEDS: METFORMIN 1,000 MG TABLET 1000 MG PO (07:37)
[2021-12-22] MEDS: ALBUTEROL INHALER 2 PUFF IH (07:37)
[2021-12-22] MEDS: ASPIRIN 81 MG TABLET EC PO (07:37)
[2021-12-22] MEDS: VENLAFAXINE ER 75 MG CAPSULE PO (07:37)
[2021-12-22] MEDS: OCUVITE TABLET 2 TAB PO (07:38)
[2021-12-22] MEDS: METOPROLOL SUCCINATE (XL) 50 MG TAB 37.5 MG PO (07:38)
[2021-12-22] MEDS: CARBOXYMETHYLCELLULOSE (REFRESH PLUS) TEARS 1 DROP EYE-BOTH (07:38)
[2021-12-22] MEDS: FOLIC ACID 800 MCG 1 EACH PO (07:38)
[2021-12-22] MEDS: POTASSIUM CHLORIDE 10 MEQ CAPSULE ER PO (07:38)
[2021-12-22 09:51] VITALS: BP 125/58; PULSE 92; RESP 20; TEMP 36.2; O2SAT 96; BMI 19.9
--- NOTE | 2021-12-22 12:24 | PC.NURSE ---
Leave of Absence - Resident left facility at 1130 with her daughter in-law. She was given all her scheduled medications and 3 tab of PRN Oxycodone. She is schedule to be back on Sunday afternoon.
--- NOTE | 2021-12-23 14:07 | PC.NURSE ---
CARE CONFERENCE: Resident, nursing, dietary, activities, and social service team present. Resident participates in activities, is really enjoying the [employer] choir and would like to see more practice times--activities agrees and will arrange. Reviewed ADLS, transfers and mobility. Resident is independent with all ADLs. Bathing is limited assist. Resident is continent of bowel and bladder. Independent with toileting hygiene. Nursing gives all medications, resident can self administer. Medication list given to resident. Resident blood sugars have been stable. Resident has a list of diabetic snacks that she likes, she states this is going well. Meals have been going better, orders ala carte frequently. Weight is stable. Mood is stable, no concerns. Resident also requests to be sent with a current medication list when she goes out with her family for more than a day or two--will update staff. Plans to go out this Sunday morning and return Sunday--staff are aware. Care plan reviewed and updated. POLST reviewed. Is DNR/DNI. Uses no restraints. Does use 2 side rails up to assist with positioning.? Vulnerability- is at risk for being harmed due to weakness and fragility. No plans for discharge. No questions/concerns at this time. Resident is happy with her cares.
--- NOTE | 2021-12-23 14:31 | PC.NURSE ---
MDS clarification: in JOSE LUIS period on 12/08 limited assist was charted for hygiene. Spoke with staff. This is incorrect. Charted in error. Also noted that teds were being charted. This is incorrect and resident does not wear teds. Staff education given.
[2021-12-25 14:54] LABS: SARS PCR* Negative SARS-CoV-2 (Negative)
[2021-12-25] MEDS: OCUVITE TABLET 2 TAB PO (15:49)
[2021-12-25] MEDS: ALBUTEROL INHALER 2 PUFF IH ×2 (15:49→19:03)
[2021-12-25] MEDS: CARBOXYMETHYLCELLULOSE (REFRESH PLUS) TEARS 1 DROP EYE-BOTH ×2 (15:49→19:03)
[2021-12-25] MEDS: METFORMIN 1,000 MG TABLET 1000 MG PO (17:13)
[2021-12-25] MEDS: NICOTINE 4 MG GUM BUCCAL (17:14)
[2021-12-25] MEDS: OXYCODONE 5 MG TABLET PO (18:53)
[2021-12-25] MEDS: HYDROCORTISONE 1 % CREAM 1 APPLIC TOPICAL (18:54)
[2021-12-25] MEDS: ACETAMINOPHEN 500 MG TABLET 1000 MG PO (19:03)
[2021-12-25] MEDS: ATORVASTATIN 10 MG TABLET PO (19:03)
[2021-12-25] MEDS: SENNOSIDES 1 TAB TABLET PO (19:03)
[2021-12-25] MEDS: TRAZODONE HCL 50 MG TABLET PO (19:03)
[2021-12-26] MEDS: OMEPRAZOLE 20 MG CAPSULE DR PO (06:44)
[2021-12-26] MEDS: ASPIRIN 81 MG TABLET EC PO (08:23)
[2021-12-26] MEDS: ALBUTEROL INHALER 2 PUFF IH ×4 (08:23→19:20)
[2021-12-26] MEDS: ACETAMINOPHEN 500 MG TABLET 1000 MG PO ×3 (08:23→19:20)
[2021-12-26] MEDS: VENLAFAXINE ER 75 MG CAPSULE PO (08:23)
[2021-12-26] MEDS: VENLAFAXINE HCL ER 37.5 MG CAPSULE PO (08:23)
[2021-12-26] MEDS: POTASSIUM CHLORIDE 10 MEQ CAPSULE ER PO (08:24)
[2021-12-26] MEDS: FUROSEMIDE 40 MG TABLET 60 MG PO (08:24)
[2021-12-26] MEDS: OCUVITE TABLET 2 TAB PO ×2 (08:24→15:37)
[2021-12-26] MEDS: FOLIC ACID 800 MCG 1 EACH PO (08:24)
[2021-12-26] MEDS: METOPROLOL SUCCINATE (XL) 50 MG TAB 37.5 MG PO (08:24)
[2021-12-26] MEDS: CARBOXYMETHYLCELLULOSE (REFRESH PLUS) TEARS 1 DROP EYE-BOTH ×4 (08:24→19:20)
[2021-12-26] MEDS: METFORMIN 1,000 MG TABLET 1000 MG PO ×2 (08:24→17:16)
[2021-12-26] MEDS: NICOTINE 4 MG GUM BUCCAL ×2 (08:30→17:17)
[2021-12-26] MEDS: SENNOSIDES 1 TAB TABLET PO (19:20)
[2021-12-26] MEDS: ATORVASTATIN 10 MG TABLET PO (19:20)
[2021-12-26] MEDS: TRAZODONE HCL 50 MG TABLET PO (19:20)
[2021-12-27] MEDS: OMEPRAZOLE 20 MG CAPSULE DR PO (06:34)
[2021-12-27] MEDS: VENLAFAXINE HCL ER 37.5 MG CAPSULE PO (08:37)
[2021-12-27] MEDS: VENLAFAXINE ER 75 MG CAPSULE PO (08:37)
[2021-12-27] MEDS: ACETAMINOPHEN 500 MG TABLET 1000 MG PO ×3 (08:37→19:41)
[2021-12-27] MEDS: ALBUTEROL INHALER 2 PUFF IH ×4 (08:37→19:41)
[2021-12-27] MEDS: ASPIRIN 81 MG TABLET EC PO (08:37)
[2021-12-27] MEDS: METFORMIN 1,000 MG TABLET 1000 MG PO ×2 (08:37→17:01)
[2021-12-27] MEDS: FUROSEMIDE 40 MG TABLET 60 MG PO (08:37)
[2021-12-27] MEDS: METOPROLOL SUCCINATE (XL) 50 MG TAB 37.5 MG PO (08:38)
[2021-12-27] MEDS: FOLIC ACID 800 MCG 1 EACH PO (08:38)
[2021-12-27] MEDS: CARBOXYMETHYLCELLULOSE (REFRESH PLUS) TEARS 1 DROP EYE-BOTH ×4 (08:38→19:40)
[2021-12-27] MEDS: NICOTINE 4 MG GUM BUCCAL ×2 (08:38→17:01)
[2021-12-27] MEDS: OCUVITE TABLET 2 TAB PO ×2 (08:38→16:09)
[2021-12-27] MEDS: POTASSIUM CHLORIDE 10 MEQ CAPSULE ER PO (08:38)
[2021-12-27 08:49] LABS: SARS PCR* Negative SARS-CoV-2 (Negative)
--- NOTE | 2021-12-27 09:52 | PC.NURSE ---
Covid Swab Test done. Result negative. Resident updated of result.
--- NOTE | 2021-12-27 14:46 | PC.NURSE ---
PSYCHOTROPIC MED CONSENT FORM: Signed by resident and put in residents paper chart.
[2021-12-27] MEDS: SENNOSIDES 1 TAB TABLET PO (19:41)
[2021-12-27] MEDS: TRAZODONE HCL 50 MG TABLET PO (19:41)
[2021-12-27] MEDS: ATORVASTATIN 10 MG TABLET PO (19:41)
--- NOTE | 2021-12-27 21:17 | PC.NURSE ---
Resident refused foot soak tonight, denies itching. Skin appears pink between R great toe and next toe.
--- NOTE | 2021-12-28 02:19 | PC.NURSE ---
Week #2 Mobility: Care Plan problems, Temporary Care Plan, and vital signs reviewed - No changes made, and nothing added to Temporary Care Plan at this time. Resident is independent with transfers, ambulation, bed mobility. Top side rails up to support positioning. Fall: No fall incident reported or noted this past month.? Resident is low fall risk based to assessment done on 09/29/21.
[2021-12-28] MEDS: OMEPRAZOLE 20 MG CAPSULE DR PO (06:53)
[2021-12-28] MEDS: METOPROLOL SUCCINATE (XL) 50 MG TAB 37.5 MG PO (08:50)
[2021-12-28] MEDS: ALBUTEROL INHALER 2 PUFF IH ×4 (08:50→19:41)
[2021-12-28] MEDS: POTASSIUM CHLORIDE 10 MEQ CAPSULE ER PO (08:50)
[2021-12-28] MEDS: VENLAFAXINE ER 75 MG CAPSULE PO (08:50)
[2021-12-28] MEDS: ACETAMINOPHEN 500 MG TABLET 1000 MG PO ×3 (08:50→19:40)
[2021-12-28] MEDS: ASPIRIN 81 MG TABLET EC PO (08:50)
[2021-12-28] MEDS: METFORMIN 1,000 MG TABLET 1000 MG PO ×2 (08:50→17:27)
[2021-12-28] MEDS: OCUVITE TABLET 2 TAB PO ×2 (08:50→16:39)
[2021-12-28] MEDS: CARBOXYMETHYLCELLULOSE (REFRESH PLUS) TEARS 1 DROP EYE-BOTH ×4 (08:50→19:41)
[2021-12-28] MEDS: VENLAFAXINE HCL ER 37.5 MG CAPSULE PO (08:50)
[2021-12-28] MEDS: FUROSEMIDE 40 MG TABLET 60 MG PO (08:50)
[2021-12-28] MEDS: FOLIC ACID 800 MCG 1 EACH PO (08:50)
--- NOTE | 2021-12-28 11:46 | PC.NURSE ---
Week #2: Mobility: Care plan reviewed, no changes made. Nothing added to temporary care plan. Resident is independent with transfers, ambulation, and bed mobility. Transfers/ambulates with a walker. Uses wheelchair only on outings and is independent. Top side rails up in bed to aid for positioning. Fall: No falls the past month. Remains a low fall risk according to assessment done on 12/15/21.
[2021-12-28] MEDS: NICOTINE 4 MG GUM BUCCAL (17:28)
[2021-12-28] MEDS: SENNOSIDES 1 TAB TABLET PO (19:41)
[2021-12-28] MEDS: ATORVASTATIN 10 MG TABLET PO (19:41)
[2021-12-28] MEDS: TRAZODONE HCL 50 MG TABLET PO (19:41)
[2021-12-29] MEDS: HYDROCORTISONE 1 % CREAM 1 APPLIC TOPICAL ×2 (06:45→19:23)
[2021-12-29] MEDS: OMEPRAZOLE 20 MG CAPSULE DR PO (06:47)
--- NOTE | 2021-12-29 07:45 | PC.NURSE ---
Covid Swab Test: 48 hours after the 2nd negative test done, sent to lab.
[2021-12-29] MEDS: ACETAMINOPHEN 500 MG TABLET 1000 MG PO ×3 (07:53→19:23)
[2021-12-29] MEDS: OCUVITE TABLET 2 TAB PO ×2 (07:54→15:37)
[2021-12-29] MEDS: POTASSIUM CHLORIDE 10 MEQ CAPSULE ER PO (07:54)
[2021-12-29] MEDS: VENLAFAXINE HCL ER 37.5 MG CAPSULE PO (07:54)
[2021-12-29] MEDS: METFORMIN 1,000 MG TABLET 1000 MG PO ×2 (07:54→17:18)
[2021-12-29] MEDS: VENLAFAXINE ER 75 MG CAPSULE PO (07:54)
[2021-12-29] MEDS: ASPIRIN 81 MG TABLET EC PO (07:54)
[2021-12-29] MEDS: CARBOXYMETHYLCELLULOSE (REFRESH PLUS) TEARS 1 DROP EYE-BOTH ×4 (07:54→19:23)
[2021-12-29] MEDS: FOLIC ACID 800 MCG 1 EACH PO (07:54)
[2021-12-29] MEDS: FUROSEMIDE 40 MG TABLET 60 MG PO (07:54)
[2021-12-29] MEDS: ALBUTEROL INHALER 2 PUFF IH ×4 (07:54→19:23)
[2021-12-29] MEDS: METOPROLOL SUCCINATE (XL) 50 MG TAB 37.5 MG PO (07:54)
[2021-12-29] MEDS: NICOTINE 4 MG GUM BUCCAL ×2 (07:55→17:18)
[2021-12-29 08:29] LABS: SARS PCR* Negative SARS-CoV-2 (Negative)
[2021-12-29 09:51] VITALS: BP 103/64; PULSE 77; RESP 20; TEMP 36.4; O2SAT 96; BMI 19.5
[2021-12-29] MEDS: ATORVASTATIN 10 MG TABLET PO (19:23)
[2021-12-29] MEDS: SENNOSIDES 1 TAB TABLET PO (19:24)
[2021-12-29] MEDS: TRAZODONE HCL 50 MG TABLET PO (19:24)
[2021-12-30] MEDS: METOPROLOL SUCCINATE (XL) 50 MG TAB 37.5 MG PO (07:00)
[2021-12-30] MEDS: ACETAMINOPHEN 500 MG TABLET 1000 MG PO ×3 (07:00→19:24)
[2021-12-30] MEDS: VENLAFAXINE ER 75 MG CAPSULE PO (07:00)
[2021-12-30] MEDS: OMEPRAZOLE 20 MG CAPSULE DR PO (07:00)
[2021-12-30] MEDS: ALBUTEROL INHALER 2 PUFF IH ×4 (07:00→19:28)
[2021-12-30] MEDS: ASPIRIN 81 MG TABLET EC PO (07:00)
[2021-12-30] MEDS: VENLAFAXINE HCL ER 37.5 MG CAPSULE PO (07:00)
[2021-12-30] MEDS: OCUVITE TABLET 2 TAB PO ×2 (07:01→15:44)
[2021-12-30] MEDS: CARBOXYMETHYLCELLULOSE (REFRESH PLUS) TEARS 1 DROP EYE-BOTH ×4 (07:01→19:25)
[2021-12-30] MEDS: NICOTINE 4 MG GUM BUCCAL ×2 (07:34→17:11)
[2021-12-30] MEDS: METFORMIN 1,000 MG TABLET 1000 MG PO ×2 (08:11→17:11)
[2021-12-30] MEDS: POTASSIUM CHLORIDE 10 MEQ CAPSULE ER PO (08:11)
[2021-12-30] MEDS: FUROSEMIDE 40 MG TABLET 60 MG PO (08:11)
[2021-12-30] MEDS: ATORVASTATIN 10 MG TABLET PO (19:24)
[2021-12-30] MEDS: TRAZODONE HCL 50 MG TABLET PO (19:25)
[2021-12-30] MEDS: SENNOSIDES 1 TAB TABLET PO (19:25)
[2021-12-31] MEDS: OMEPRAZOLE 20 MG CAPSULE DR PO (06:41)
[2021-12-31] MEDS: VENLAFAXINE ER 75 MG CAPSULE PO (07:12)
[2021-12-31] MEDS: ASPIRIN 81 MG TABLET EC PO (07:12)
[2021-12-31] MEDS: ACETAMINOPHEN 500 MG TABLET 1000 MG PO ×3 (07:12→19:57)
[2021-12-31] MEDS: ALBUTEROL INHALER 2 PUFF IH ×4 (07:12→19:57)
[2021-12-31] MEDS: VENLAFAXINE HCL ER 37.5 MG CAPSULE PO (07:12)
[2021-12-31] MEDS: CARBOXYMETHYLCELLULOSE (REFRESH PLUS) TEARS 1 DROP EYE-BOTH ×4 (07:13→19:57)
[2021-12-31] MEDS: OCUVITE TABLET 2 TAB PO ×2 (07:13→15:42)
[2021-12-31] MEDS: FOLIC ACID 800 MCG 1 EACH PO (07:13)
[2021-12-31] MEDS: METOPROLOL SUCCINATE (XL) 50 MG TAB 37.5 MG PO (07:13)
[2021-12-31] MEDS: NICOTINE 4 MG GUM BUCCAL ×2 (07:20→17:07)
[2021-12-31] MEDS: FUROSEMIDE 40 MG TABLET 60 MG PO (08:31)
[2021-12-31] MEDS: METFORMIN 1,000 MG TABLET 1000 MG PO ×2 (08:31→17:06)
[2021-12-31] MEDS: POTASSIUM CHLORIDE 10 MEQ CAPSULE ER PO (08:31)
[2021-12-31] MEDS: HYDROCORTISONE 1 % CREAM 1 APPLIC TOPICAL (10:30)
[2021-12-31] MEDS: SENNOSIDES 1 TAB TABLET PO (19:57)
[2021-12-31] MEDS: TRAZODONE HCL 50 MG TABLET PO (19:57)
[2021-12-31] MEDS: ATORVASTATIN 10 MG TABLET PO (19:57)
[2022-01-01] MEDS: NICOTINE 4 MG GUM BUCCAL ×2 (07:15→17:03)
[2022-01-01] MEDS: VENLAFAXINE HCL ER 37.5 MG CAPSULE PO (07:16)
[2022-01-01] MEDS: METOPROLOL SUCCINATE (XL) 50 MG TAB 37.5 MG PO (07:16)
[2022-01-01] MEDS: ACETAMINOPHEN 500 MG TABLET 1000 MG PO ×3 (07:16→19:39)
[2022-01-01] MEDS: ALBUTEROL INHALER 2 PUFF IH ×4 (07:16→19:42)
[2022-01-01] MEDS: OMEPRAZOLE 20 MG CAPSULE DR PO (07:16)
[2022-01-01] MEDS: ASPIRIN 81 MG TABLET EC PO (07:16)
[2022-01-01] MEDS: VENLAFAXINE ER 75 MG CAPSULE PO (07:16)
[2022-01-01] MEDS: FOLIC ACID 800 MCG 1 EACH PO (07:16)
[2022-01-01] MEDS: OCUVITE TABLET 2 TAB PO ×2 (07:16→15:45)
[2022-01-01] MEDS: CARBOXYMETHYLCELLULOSE (REFRESH PLUS) TEARS 1 DROP EYE-BOTH ×4 (07:17→19:42)
[2022-01-01] MEDS: POTASSIUM CHLORIDE 10 MEQ CAPSULE ER PO (08:17)
[2022-01-01] MEDS: METFORMIN 1,000 MG TABLET 1000 MG PO ×2 (08:17→17:03)
[2022-01-01] MEDS: FUROSEMIDE 40 MG TABLET 60 MG PO (08:17)
[2022-01-01] MEDS: ATORVASTATIN 10 MG TABLET PO (19:42)
[2022-01-01] MEDS: SENNOSIDES 1 TAB TABLET PO (19:42)
[2022-01-01] MEDS: TRAZODONE HCL 50 MG TABLET PO (19:42)
[2022-01-02] MEDS: OMEPRAZOLE 20 MG CAPSULE DR PO (07:24)
[2022-01-02] MEDS: VENLAFAXINE HCL ER 37.5 MG CAPSULE PO (07:25)
[2022-01-02] MEDS: VENLAFAXINE ER 75 MG CAPSULE PO (07:25)
[2022-01-02] MEDS: ASPIRIN 81 MG TABLET EC PO (07:25)
[2022-01-02] MEDS: ALBUTEROL INHALER 2 PUFF IH ×4 (07:25→18:59)
[2022-01-02] MEDS: ACETAMINOPHEN 500 MG TABLET 1000 MG PO ×3 (07:25→18:57)
[2022-01-02] MEDS: FOLIC ACID 800 MCG 1 EACH PO (07:28)
[2022-01-02] MEDS: FUROSEMIDE 40 MG TABLET 60 MG PO (07:28)
[2022-01-02] MEDS: METFORMIN 1,000 MG TABLET 1000 MG PO ×2 (07:28→17:09)
[2022-01-02] MEDS: METOPROLOL SUCCINATE (XL) 50 MG TAB 37.5 MG PO (07:28)
[2022-01-02] MEDS: OCUVITE TABLET 2 TAB PO ×2 (07:29→15:37)
[2022-01-02] MEDS: POTASSIUM CHLORIDE 10 MEQ CAPSULE ER PO (07:29)
[2022-01-02] MEDS: CARBOXYMETHYLCELLULOSE (REFRESH PLUS) TEARS 1 DROP EYE-BOTH ×4 (07:29→19:00)
[2022-01-02] MEDS: NICOTINE 4 MG GUM BUCCAL (17:10)
[2022-01-02] MEDS: ATORVASTATIN 10 MG TABLET PO (18:59)
[2022-01-02] MEDS: SENNOSIDES 1 TAB TABLET PO (19:00)
[2022-01-02] MEDS: TRAZODONE HCL 50 MG TABLET PO (19:01)
[2022-01-02] MEDS: OXYCODONE 5 MG TABLET PO (20:35)
[2022-01-03] MEDS: OMEPRAZOLE 20 MG CAPSULE DR PO (06:33)
[2022-01-03] MEDS: VENLAFAXINE ER 75 MG CAPSULE PO (07:05)
[2022-01-03] MEDS: ACETAMINOPHEN 500 MG TABLET 1000 MG PO ×3 (07:05→19:23)
[2022-01-03] MEDS: ASPIRIN 81 MG TABLET EC PO (07:05)
[2022-01-03] MEDS: OCUVITE TABLET 2 TAB PO ×2 (07:05→16:12)
[2022-01-03] MEDS: ALBUTEROL INHALER 2 PUFF IH ×4 (07:05→19:24)
[2022-01-03] MEDS: VENLAFAXINE HCL ER 37.5 MG CAPSULE PO (07:05)
[2022-01-03] MEDS: CARBOXYMETHYLCELLULOSE (REFRESH PLUS) TEARS 1 DROP EYE-BOTH ×4 (07:05→19:23)
[2022-01-03] MEDS: FOLIC ACID 800 MCG 1 EACH PO (07:05)
[2022-01-03] MEDS: METOPROLOL SUCCINATE (XL) 50 MG TAB 37.5 MG PO (07:05)
[2022-01-03] MEDS: NICOTINE 4 MG GUM BUCCAL ×2 (08:30→17:18)
[2022-01-03] MEDS: FUROSEMIDE 40 MG TABLET 60 MG PO (08:39)
[2022-01-03] MEDS: POTASSIUM CHLORIDE 10 MEQ CAPSULE ER PO (08:39)
[2022-01-03] MEDS: METFORMIN 1,000 MG TABLET 1000 MG PO ×2 (08:39→17:18)
--- NOTE | 2022-01-03 12:45 | PC.NURSE ---
Order: Loperamide HCL 2 mg Q2H PRN by Anselmo DWYER per resident request. Per resident when she goes out with family she gets diarrhea
--- NOTE | 2022-01-03 12:48 | PC.NURSE ---
YULIYA, Anselmo gamez. Updated of fall. No injury.
--- NOTE | 2022-01-03 14:32 | PC.NURSE ---
Resident was concerned that during her last family visit she had diarrhea and asked the ROUNDER HAND to be updated. ROUNDER HAND wrote order for Imodium PRN. Order sheet given to resident and she will alert staff on day she goes out for Thanksgiving family outing that she will need the Imodium added to her medication supply bag.
[2022-01-03] MEDS: ATORVASTATIN 10 MG TABLET PO (19:24)
[2022-01-03] MEDS: TRAZODONE HCL 50 MG TABLET PO (19:24)
[2022-01-03] MEDS: SENNOSIDES 1 TAB TABLET PO (19:24)
--- NOTE | 2022-01-04 02:15 | PC.NURSE ---
WEEKLY CHARTING-WEEK 3: Reviewed temporary and comprehensive care plan with no changes. Vital signs and skin concerns reviewed, No skin concerns noted weekly skin assessments. Vital signs WNL's. Resident independent with toileting, continent with bowel and bladder.
[2022-01-04] MEDS: OMEPRAZOLE 20 MG CAPSULE DR PO (06:40)
[2022-01-04] MEDS: NICOTINE 4 MG GUM BUCCAL ×2 (08:30→17:02)
[2022-01-04] MEDS: ACETAMINOPHEN 500 MG TABLET 1000 MG PO ×3 (08:44→20:16)
[2022-01-04] MEDS: METFORMIN 1,000 MG TABLET 1000 MG PO ×2 (08:45→17:02)
[2022-01-04] MEDS: FUROSEMIDE 40 MG TABLET 60 MG PO (08:45)
[2022-01-04] MEDS: CARBOXYMETHYLCELLULOSE (REFRESH PLUS) TEARS 1 DROP EYE-BOTH ×4 (08:45→20:16)
[2022-01-04] MEDS: OCUVITE TABLET 2 TAB PO ×2 (08:45→16:29)
[2022-01-04] MEDS: POTASSIUM CHLORIDE 10 MEQ CAPSULE ER PO (08:45)
[2022-01-04] MEDS: FOLIC ACID 800 MCG 1 EACH PO (08:45)
[2022-01-04] MEDS: METOPROLOL SUCCINATE (XL) 50 MG TAB 37.5 MG PO (08:45)
[2022-01-04] MEDS: ALBUTEROL INHALER 2 PUFF IH ×4 (08:45→20:16)
[2022-01-04] MEDS: ASPIRIN 81 MG TABLET EC PO (08:45)
[2022-01-04] MEDS: VENLAFAXINE HCL ER 37.5 MG CAPSULE PO (08:45)
[2022-01-04] MEDS: VENLAFAXINE ER 75 MG CAPSULE PO (08:45)
--- NOTE | 2022-01-04 11:14 | PC.NURSE ---
Week #3 - Toileting: Care plan reviewed, no changes made. Nothing added to temporary care plan. Resident is continent of bowel & bladder. Is independent with all toileting needs including pericares and clothing adjustment. Will ask for assist as needed. VS reviewed, fine. Skin: No issues at this time. Is able to report with concerns. Skin is checked on bath day.
[2022-01-04] MEDS: SENNOSIDES 1 TAB TABLET PO (20:16)
[2022-01-04] MEDS: TRAZODONE HCL 50 MG TABLET PO (20:16)
[2022-01-04] MEDS: ATORVASTATIN 10 MG TABLET PO (20:16)
[2022-01-05] MEDS: OMEPRAZOLE 20 MG CAPSULE DR PO (06:57)
[2022-01-05] MEDS: ALBUTEROL INHALER 2 PUFF IH ×4 (07:14→20:20)
[2022-01-05] MEDS: ASPIRIN 81 MG TABLET EC PO (07:14)
[2022-01-05] MEDS: ACETAMINOPHEN 500 MG TABLET 1000 MG PO ×3 (07:14→20:17)
[2022-01-05] MEDS: VENLAFAXINE ER 75 MG CAPSULE PO (07:14)
[2022-01-05] MEDS: OCUVITE TABLET 2 TAB PO ×2 (07:15→16:32)
[2022-01-05] MEDS: CARBOXYMETHYLCELLULOSE (REFRESH PLUS) TEARS 1 DROP EYE-BOTH ×4 (07:15→20:20)
[2022-01-05] MEDS: VENLAFAXINE HCL ER 37.5 MG CAPSULE PO (07:15)
[2022-01-05] MEDS: FOLIC ACID 800 MCG 1 EACH PO (07:15)
[2022-01-05] MEDS: METOPROLOL SUCCINATE (XL) 50 MG TAB 37.5 MG PO (07:15)
[2022-01-05] MEDS: HYDROCORTISONE 1 % CREAM 1 APPLIC TOPICAL (07:55)
[2022-01-05] MEDS: NICOTINE 4 MG GUM BUCCAL ×2 (07:56→17:13)
[2022-01-05] MEDS: FUROSEMIDE 40 MG TABLET 60 MG PO (08:23)
[2022-01-05] MEDS: POTASSIUM CHLORIDE 10 MEQ CAPSULE ER PO (08:24)
[2022-01-05] MEDS: METFORMIN 1,000 MG TABLET 1000 MG PO ×2 (08:24→17:13)
[2022-01-05 10:13] VITALS: BP 121/73; PULSE 83; RESP 20; TEMP 36.3; O2SAT 96; BMI 19.7
[2022-01-05] MEDS: ATORVASTATIN 10 MG TABLET PO (20:20)
[2022-01-05] MEDS: TRAZODONE HCL 50 MG TABLET PO (20:20)
[2022-01-05] MEDS: SENNOSIDES 1 TAB TABLET PO (20:20)
[2022-01-06] MEDS: OMEPRAZOLE 20 MG CAPSULE DR PO (07:05)
[2022-01-06] MEDS: ASPIRIN 81 MG TABLET EC PO (07:07)
[2022-01-06] MEDS: ACETAMINOPHEN 500 MG TABLET 1000 MG PO ×3 (07:07→19:27)
[2022-01-06] MEDS: VENLAFAXINE HCL ER 37.5 MG CAPSULE PO (07:08)
[2022-01-06] MEDS: VENLAFAXINE ER 75 MG CAPSULE PO (07:08)
[2022-01-06] MEDS: METOPROLOL SUCCINATE (XL) 50 MG TAB 37.5 MG PO (07:09)
[2022-01-06] MEDS: FUROSEMIDE 40 MG TABLET 60 MG PO (07:10)
[2022-01-06] MEDS: METFORMIN 1,000 MG TABLET 1000 MG PO ×2 (07:10→17:16)
[2022-01-06] MEDS: POTASSIUM CHLORIDE 10 MEQ CAPSULE ER PO (07:11)
[2022-01-06] MEDS: OCUVITE TABLET 2 TAB PO ×2 (07:11→16:02)
[2022-01-06] MEDS: CARBOXYMETHYLCELLULOSE (REFRESH PLUS) TEARS 1 DROP EYE-BOTH ×4 (07:13→19:26)
[2022-01-06] MEDS: ALBUTEROL INHALER 2 PUFF IH ×4 (07:14→19:26)
[2022-01-06] MEDS: HYDROCORTISONE 1 % CREAM 1 APPLIC TOPICAL ×2 (09:33→19:27)
[2022-01-06] MEDS: NICOTINE 4 MG GUM BUCCAL ×2 (09:33→17:16)
[2022-01-06] MEDS: ATORVASTATIN 10 MG TABLET PO (19:27)
[2022-01-06] MEDS: SENNOSIDES 1 TAB TABLET PO (19:27)
[2022-01-06] MEDS: TRAZODONE HCL 50 MG TABLET PO (19:28)
[2022-01-07] MEDS: OMEPRAZOLE 20 MG CAPSULE DR PO (06:46)
[2022-01-07] MEDS: ACETAMINOPHEN 500 MG TABLET 1000 MG PO ×3 (07:24→19:48)
[2022-01-07] MEDS: ASPIRIN 81 MG TABLET EC PO (07:25)
[2022-01-07] MEDS: OCUVITE TABLET 2 TAB PO ×2 (07:25→15:57)
[2022-01-07] MEDS: FOLIC ACID 800 MCG 1 EACH PO (07:25)
[2022-01-07] MEDS: POTASSIUM CHLORIDE 10 MEQ CAPSULE ER PO (07:25)
[2022-01-07] MEDS: ALBUTEROL INHALER 2 PUFF IH ×4 (07:25→19:48)
[2022-01-07] MEDS: FUROSEMIDE 40 MG TABLET 60 MG PO (07:25)
[2022-01-07] MEDS: METFORMIN 1,000 MG TABLET 1000 MG PO ×2 (07:25→17:17)
[2022-01-07] MEDS: VENLAFAXINE HCL ER 37.5 MG CAPSULE PO (07:25)
[2022-01-07] MEDS: VENLAFAXINE ER 75 MG CAPSULE PO (07:25)
[2022-01-07] MEDS: CARBOXYMETHYLCELLULOSE (REFRESH PLUS) TEARS 1 DROP EYE-BOTH ×4 (07:25→19:47)
[2022-01-07] MEDS: METOPROLOL SUCCINATE (XL) 50 MG TAB 37.5 MG PO (07:25)
[2022-01-07] MEDS: NICOTINE 4 MG GUM BUCCAL (17:18)
[2022-01-07] MEDS: ATORVASTATIN 10 MG TABLET PO (19:48)
[2022-01-07] MEDS: SENNOSIDES 1 TAB TABLET PO (19:48)
[2022-01-07] MEDS: TRAZODONE HCL 50 MG TABLET PO (19:48)
[2022-01-07] MEDS: HYDROCORTISONE 1 % CREAM 1 APPLIC TOPICAL (19:59)
[2022-01-08] MEDS: OMEPRAZOLE 20 MG CAPSULE DR PO (06:21)
[2022-01-08] MEDS: NICOTINE 4 MG GUM BUCCAL ×2 (08:30→17:55)
[2022-01-08] MEDS: METOPROLOL SUCCINATE (XL) 50 MG TAB 37.5 MG PO (08:40)
[2022-01-08] MEDS: ACETAMINOPHEN 500 MG TABLET 1000 MG PO ×3 (08:40→19:47)
[2022-01-08] MEDS: FOLIC ACID 800 MCG 1 EACH PO (08:40)
[2022-01-08] MEDS: OCUVITE TABLET 2 TAB PO ×2 (08:40→15:33)
[2022-01-08] MEDS: VENLAFAXINE HCL ER 37.5 MG CAPSULE PO (08:40)
[2022-01-08] MEDS: POTASSIUM CHLORIDE 10 MEQ CAPSULE ER PO (08:40)
[2022-01-08] MEDS: FUROSEMIDE 40 MG TABLET 60 MG PO (08:40)
[2022-01-08] MEDS: CARBOXYMETHYLCELLULOSE (REFRESH PLUS) TEARS 1 DROP EYE-BOTH ×4 (08:40→19:47)
[2022-01-08] MEDS: METFORMIN 1,000 MG TABLET 1000 MG PO ×2 (08:40→17:54)
[2022-01-08] MEDS: ASPIRIN 81 MG TABLET EC PO (08:40)
[2022-01-08] MEDS: VENLAFAXINE ER 75 MG CAPSULE PO (08:40)
[2022-01-08] MEDS: ALBUTEROL INHALER 2 PUFF IH ×4 (08:40→19:47)
[2022-01-08] MEDS: MAGNESIUM HYDROXIDE 30 ML ORAL.SUSP PO (09:20)
[2022-01-08] MEDS: OXYCODONE 5 MG TABLET PO (09:20)
[2022-01-08] MEDS: ATORVASTATIN 10 MG TABLET PO (19:47)
[2022-01-08] MEDS: SENNOSIDES 1 TAB TABLET PO (19:47)
[2022-01-08] MEDS: TRAZODONE HCL 50 MG TABLET PO (19:48)
[2022-01-09] MEDS: OMEPRAZOLE 20 MG CAPSULE DR PO (06:24)
[2022-01-09] MEDS: METFORMIN 1,000 MG TABLET 1000 MG PO ×2 (07:47→17:21)
[2022-01-09] MEDS: FUROSEMIDE 40 MG TABLET 60 MG PO (07:47)
[2022-01-09] MEDS: FOLIC ACID 800 MCG 1 EACH PO (07:47)
[2022-01-09] MEDS: OCUVITE TABLET 2 TAB PO ×2 (07:47→15:14)
[2022-01-09] MEDS: VENLAFAXINE HCL ER 37.5 MG CAPSULE PO (07:47)
[2022-01-09] MEDS: METOPROLOL SUCCINATE (XL) 50 MG TAB 37.5 MG PO (07:47)
[2022-01-09] MEDS: VENLAFAXINE ER 75 MG CAPSULE PO (07:47)
[2022-01-09] MEDS: ALBUTEROL INHALER 2 PUFF IH ×4 (07:47→19:03)
[2022-01-09] MEDS: ASPIRIN 81 MG TABLET EC PO (07:47)
[2022-01-09] MEDS: ACETAMINOPHEN 500 MG TABLET 1000 MG PO ×3 (07:47→19:03)
[2022-01-09] MEDS: POTASSIUM CHLORIDE 10 MEQ CAPSULE ER PO (07:47)
[2022-01-09] MEDS: CARBOXYMETHYLCELLULOSE (REFRESH PLUS) TEARS 1 DROP EYE-BOTH ×4 (07:48→19:03)
[2022-01-09] MEDS: NICOTINE 4 MG GUM BUCCAL (17:21)
[2022-01-09] MEDS: SENNOSIDES 1 TAB TABLET PO (19:03)
[2022-01-09] MEDS: TRAZODONE HCL 50 MG TABLET PO (19:03)
[2022-01-09] MEDS: ATORVASTATIN 10 MG TABLET PO (19:03)
[2022-01-10] MEDS: OMEPRAZOLE 20 MG CAPSULE DR PO (06:26)
[2022-01-10] MEDS: ACETAMINOPHEN 500 MG TABLET 1000 MG PO ×3 (08:32→19:30)
[2022-01-10] MEDS: ALBUTEROL INHALER 2 PUFF IH ×4 (08:32→19:29)
[2022-01-10] MEDS: FOLIC ACID 800 MCG 1 EACH PO (08:33)
[2022-01-10] MEDS: METFORMIN 1,000 MG TABLET 1000 MG PO ×2 (08:33→17:03)
[2022-01-10] MEDS: ASPIRIN 81 MG TABLET EC PO (08:33)
[2022-01-10] MEDS: FUROSEMIDE 40 MG TABLET 60 MG PO (08:33)
[2022-01-10] MEDS: CARBOXYMETHYLCELLULOSE (REFRESH PLUS) TEARS 1 DROP EYE-BOTH ×4 (08:33→19:29)
[2022-01-10] MEDS: OCUVITE TABLET 2 TAB PO ×2 (08:33→15:37)
[2022-01-10] MEDS: VENLAFAXINE ER 75 MG CAPSULE PO (08:33)
[2022-01-10] MEDS: METOPROLOL SUCCINATE (XL) 50 MG TAB 37.5 MG PO (08:33)
[2022-01-10] MEDS: POTASSIUM CHLORIDE 10 MEQ CAPSULE ER PO (08:33)
[2022-01-10] MEDS: VENLAFAXINE HCL ER 37.5 MG CAPSULE PO (08:33)
[2022-01-10] MEDS: NICOTINE 4 MG GUM BUCCAL (17:04)
[2022-01-10] MEDS: ATORVASTATIN 10 MG TABLET PO (19:30)
[2022-01-10] MEDS: SENNOSIDES 1 TAB TABLET PO (19:30)
[2022-01-10] MEDS: TRAZODONE HCL 50 MG TABLET PO (19:30)
--- NOTE | 2022-01-11 03:52 | PC.NURSE ---
WEEKLY CHARTING - WEEK 4: Vital signs reviewed with no concerns. Temporary and comprehensive care plan reviewed - no changes. No documented behaviors in the last month. Currently receives trazodone 50 mg at HS and venlafaxine 112.5mg daily with no noted adverse effects. CHITIMACHA in some environments. Increase voice volume when needed. Visual impairment is corrected with glasses. Cognitively intact a/e/b BIMS score of 15. Staff monitor for changes in mood r/t dx of depression and anxiety. No medication changes. Medication administered by nurse. NO change to chronic health condition.
--- NOTE | 2022-01-11 06:38 | PC.NURSE ---
Week #4: Care plan reviewed, no changes made. Nothing added to temporary care plan. No changes noted in communication, hearing, vision, or orientation. Resident does communicate needs. Is [place] in some environment, does not wear a hearing device. Speaker to increase volume when in loud environment. Wears glasses. Is cognitively intact. Chronic health condition stable. Vital signs reviewed with no concerns. Is able to self administer medications. Nurse may leave meds with her and check they are taken. Mood/Behavior: No issues the past month. Continues on Effexor 112.5 mg daily, & Trazodone 50 mg @ HS with no adverse effects noted. No changes in medications.
[2022-01-11] MEDS: OMEPRAZOLE 20 MG CAPSULE DR PO (07:05)
[2022-01-11] MEDS: NICOTINE 4 MG GUM BUCCAL (07:10)
[2022-01-11] MEDS: ASPIRIN 81 MG TABLET EC PO (07:13)
[2022-01-11] MEDS: ALBUTEROL INHALER 2 PUFF IH (07:13)
[2022-01-11] MEDS: VENLAFAXINE HCL ER 37.5 MG CAPSULE PO (07:13)
[2022-01-11] MEDS: ACETAMINOPHEN 500 MG TABLET 1000 MG PO (07:13)
[2022-01-11] MEDS: VENLAFAXINE ER 75 MG CAPSULE PO (07:13)
[2022-01-11] MEDS: OCUVITE TABLET 2 TAB PO (07:18)
[2022-01-11] MEDS: FOLIC ACID 800 MCG 1 EACH PO (07:18)
[2022-01-11] MEDS: CARBOXYMETHYLCELLULOSE (REFRESH PLUS) TEARS 1 DROP EYE-BOTH (07:19)
[2022-01-11] MEDS: HYDROCORTISONE 1 % CREAM 1 APPLIC TOPICAL (07:20)
[2022-01-11] MEDS: METOPROLOL SUCCINATE (XL) 50 MG TAB 37.5 MG PO (07:21)
[2022-01-11] MEDS: POTASSIUM CHLORIDE 10 MEQ CAPSULE ER PO (08:55)
[2022-01-11] MEDS: METFORMIN 1,000 MG TABLET 1000 MG PO (08:55)
--- NOTE | 2022-01-11 10:16 | PC.NURSE ---
Leave of Absence - Resident left facility at 1010 with her son. She was sent will all her scheduled medications including PRN Oxycodone (13 tab) and immodium full card. She plans to return either on Sun or Sunday.
--- NOTE | 2022-01-14 14:31 | PC.NURSE ---
Return from [facility] : Resident return from [facility] at 1130 accompanied by son. Vital are WNL. Temp 97.4 O2 95. Nasal swab for routine Covid test taken at 1430 and sent to lab.
[2022-01-14 15:19] LABS: SARS PCR* Negative SARS-CoV-2 (Negative)
[2022-01-14] MEDS: ALBUTEROL INHALER 2 PUFF IH ×2 (16:19→20:02)
[2022-01-14] MEDS: OCUVITE TABLET 2 TAB PO (16:19)
[2022-01-14] MEDS: CARBOXYMETHYLCELLULOSE (REFRESH PLUS) TEARS 1 DROP EYE-BOTH ×2 (16:19→20:02)
[2022-01-14] MEDS: NICOTINE 4 MG GUM BUCCAL (17:07)
[2022-01-14] MEDS: METFORMIN 1,000 MG TABLET 1000 MG PO (17:07)
[2022-01-14] MEDS: HYDROCORTISONE 1 % CREAM 1 APPLIC TOPICAL (20:01)
[2022-01-14] MEDS: OXYCODONE 5 MG TABLET PO (20:01)
[2022-01-14] MEDS: SENNOSIDES 1 TAB TABLET PO (20:02)
[2022-01-14] MEDS: TRAZODONE HCL 50 MG TABLET PO (20:02)
[2022-01-14] MEDS: ACETAMINOPHEN 500 MG TABLET 1000 MG PO (20:02)
[2022-01-14] MEDS: ATORVASTATIN 10 MG TABLET PO (20:02)
[2022-01-15] MEDS: OMEPRAZOLE 20 MG CAPSULE DR PO (06:30)
[2022-01-15] MEDS: NICOTINE 4 MG GUM BUCCAL ×2 (07:10→17:17)
[2022-01-15] MEDS: ALBUTEROL INHALER 2 PUFF IH ×4 (07:42→19:39)
[2022-01-15] MEDS: ASPIRIN 81 MG TABLET EC PO (07:42)
[2022-01-15] MEDS: ACETAMINOPHEN 500 MG TABLET 1000 MG PO ×3 (07:42→19:30)
[2022-01-15] MEDS: VENLAFAXINE ER 75 MG CAPSULE PO (07:42)
[2022-01-15] MEDS: METOPROLOL SUCCINATE (XL) 50 MG TAB 37.5 MG PO (07:43)
[2022-01-15] MEDS: FOLIC ACID 800 MCG 1 EACH PO (07:43)
[2022-01-15] MEDS: OCUVITE TABLET 2 TAB PO ×2 (07:43→15:44)
[2022-01-15] MEDS: VENLAFAXINE HCL ER 37.5 MG CAPSULE PO (07:43)
[2022-01-15] MEDS: CARBOXYMETHYLCELLULOSE (REFRESH PLUS) TEARS 1 DROP EYE-BOTH ×4 (07:43→19:39)
[2022-01-15] MEDS: FUROSEMIDE 40 MG TABLET 60 MG PO (08:17)
[2022-01-15] MEDS: METFORMIN 1,000 MG TABLET 1000 MG PO ×2 (08:18→17:16)
[2022-01-15] MEDS: POTASSIUM CHLORIDE 10 MEQ CAPSULE ER PO (08:18)
--- NOTE | 2022-01-15 13:33 | PC.NURSE ---
Breathing: Resident c/o hard to breath and requested for Oxygen. Vitals are WNL O2 sat 95% respiration 18, O2 at 2L via nasal cannula in progress.
[2022-01-15] MEDS: OXYCODONE 5 MG TABLET PO (19:39)
[2022-01-15] MEDS: SENNOSIDES 1 TAB TABLET PO (19:39)
[2022-01-15] MEDS: HYDROCORTISONE 1 % CREAM 1 APPLIC TOPICAL (19:39)
[2022-01-15] MEDS: TRAZODONE HCL 50 MG TABLET PO (19:39)
[2022-01-15] MEDS: ATORVASTATIN 10 MG TABLET PO (19:39)
[2022-01-16] MEDS: OMEPRAZOLE 20 MG CAPSULE DR PO (06:36)
[2022-01-16] MEDS: ACETAMINOPHEN 500 MG TABLET 1000 MG PO ×3 (07:17→19:27)
[2022-01-16] MEDS: VENLAFAXINE ER 75 MG CAPSULE PO (07:17)
[2022-01-16] MEDS: ALBUTEROL INHALER 2 PUFF IH ×4 (07:17→19:27)
[2022-01-16] MEDS: ASPIRIN 81 MG TABLET EC PO (07:17)
[2022-01-16] MEDS: VENLAFAXINE HCL ER 37.5 MG CAPSULE PO (07:17)
[2022-01-16] MEDS: CARBOXYMETHYLCELLULOSE (REFRESH PLUS) TEARS 1 DROP EYE-BOTH ×4 (07:18→19:27)
[2022-01-16] MEDS: FUROSEMIDE 40 MG TABLET 60 MG PO (07:18)
[2022-01-16] MEDS: FOLIC ACID 800 MCG 1 EACH PO (07:18)
[2022-01-16] MEDS: METOPROLOL SUCCINATE (XL) 50 MG TAB 37.5 MG PO (07:18)
[2022-01-16] MEDS: OCUVITE TABLET 2 TAB PO ×2 (07:18→16:17)
[2022-01-16] MEDS: METFORMIN 1,000 MG TABLET 1000 MG PO ×2 (07:18→17:09)
[2022-01-16] MEDS: POTASSIUM CHLORIDE 10 MEQ CAPSULE ER PO (07:18)
--- NOTE | 2022-01-16 10:02 | PC.PHA ---
Medication Review~ Medication Monitoring: Trazodone and venlafaxine Comments/Irregularities: Per notes patient is doing well, continues to enjoy life here and on leaves. While she does have extensive medication regimen, all medications have appropriate doses and coinciding indications. She has expressed a want for taking less pills. Suggested Course: Regarding psychopharmacotherapies of trazodone and venlafaxine, a GDR could be attempted on the venlafaxine. Regarding the need to decrease pills taken on daily basis, folic acid, while being a supplement is crucial when taking methotrexate so please be careful when stopping supplements.
[2022-01-16] MEDS: NICOTINE 4 MG GUM BUCCAL ×2 (10:03→17:09)
[2022-01-16 14:59] LABS: SARS PCR* Negative SARS-CoV-2 (Negative)
[2022-01-16] MEDS: ATORVASTATIN 10 MG TABLET PO (19:27)
[2022-01-16] MEDS: TRAZODONE HCL 50 MG TABLET PO (19:28)
[2022-01-16] MEDS: OXYCODONE 5 MG TABLET PO (19:28)
[2022-01-16] MEDS: SENNOSIDES 1 TAB TABLET PO (19:28)
[2022-01-17] MEDS: OMEPRAZOLE 20 MG CAPSULE DR PO (06:35)
[2022-01-17] MEDS: FUROSEMIDE 40 MG TABLET 60 MG PO (08:31)
[2022-01-17] MEDS: VENLAFAXINE ER 75 MG CAPSULE PO (08:31)
[2022-01-17] MEDS: ASPIRIN 81 MG TABLET EC PO (08:31)
[2022-01-17] MEDS: METOPROLOL SUCCINATE (XL) 50 MG TAB 37.5 MG PO (08:31)
[2022-01-17] MEDS: ACETAMINOPHEN 500 MG TABLET 1000 MG PO ×3 (08:31→19:37)
[2022-01-17] MEDS: FOLIC ACID 800 MCG 1 EACH PO (08:31)
[2022-01-17] MEDS: ALBUTEROL INHALER 2 PUFF IH ×4 (08:31→19:37)
[2022-01-17] MEDS: POTASSIUM CHLORIDE 10 MEQ CAPSULE ER PO (08:31)
[2022-01-17] MEDS: CARBOXYMETHYLCELLULOSE (REFRESH PLUS) TEARS 1 DROP EYE-BOTH ×4 (08:31→19:37)
[2022-01-17] MEDS: VENLAFAXINE HCL ER 37.5 MG CAPSULE PO (08:31)
[2022-01-17] MEDS: OCUVITE TABLET 2 TAB PO (08:31)
[2022-01-17] MEDS: METFORMIN 1,000 MG TABLET 1000 MG PO ×2 (08:31→17:25)
[2022-01-17] MEDS: NICOTINE 4 MG GUM BUCCAL ×2 (08:35→16:57)
--- NOTE | 2022-01-17 11:43 | PC.NURSE ---
Status/Order: Resident requested CROSSCUTTER review medications and stop unnecessary ones. Order: Discontinue Calcium, Ocuvite. Decrease Trazodone 50 mg to 25 mg at HS, Triamcinolone Cream BID to (R) gr toe by CROSSCUTTERAnselmo. Resident updated of changes and is okay.
--- NOTE | 2022-01-17 11:50 | PC.SPIRITC ---
Revenue Tax Specialist provided support to Tran upon her learning about her friend's . Will continue to follow up for ongoing grief support.
[2022-01-17] MEDS: OXYCODONE 5 MG TABLET PO (13:51)
[2022-01-17] MEDS: ATORVASTATIN 10 MG TABLET PO (19:37)
[2022-01-17] MEDS: SENNOSIDES 1 TAB TABLET PO (19:38)
[2022-01-17] MEDS: TRAZODONE HCL 50 MG TABLET 25 MG PO (19:41)
[2022-01-18] MEDS: OMEPRAZOLE 20 MG CAPSULE DR PO (06:25)
[2022-01-18 08:06] LABS: SARS PCR* Negative SARS-CoV-2 (Negative)
[2022-01-18] MEDS: ACETAMINOPHEN 500 MG TABLET 1000 MG PO ×3 (08:36→19:26)
[2022-01-18] MEDS: ALBUTEROL INHALER 2 PUFF IH ×4 (08:36→19:26)
[2022-01-18] MEDS: VENLAFAXINE HCL ER 37.5 MG CAPSULE PO (08:36)
[2022-01-18] MEDS: FOLIC ACID 800 MCG 1 EACH PO (08:36)
[2022-01-18] MEDS: VENLAFAXINE ER 75 MG CAPSULE PO (08:36)
[2022-01-18] MEDS: ASPIRIN 81 MG TABLET EC PO (08:36)
[2022-01-18] MEDS: METFORMIN 1,000 MG TABLET 1000 MG PO ×2 (08:36→17:19)
[2022-01-18] MEDS: METOPROLOL SUCCINATE (XL) 50 MG TAB 37.5 MG PO (08:36)
[2022-01-18] MEDS: FUROSEMIDE 40 MG TABLET 60 MG PO (08:36)
[2022-01-18] MEDS: POTASSIUM CHLORIDE 10 MEQ CAPSULE ER PO (08:36)
[2022-01-18] MEDS: CARBOXYMETHYLCELLULOSE (REFRESH PLUS) TEARS 1 DROP EYE-BOTH ×4 (08:37→19:26)
[2022-01-18] MEDS: NICOTINE 4 MG GUM BUCCAL ×2 (10:29→16:56)
--- NOTE | 2022-01-18 10:33 | PC.NURSE ---
Covid Swab Test 48H after the 2nd negative test, done. Result back is negative.
--- NOTE | 2022-01-18 16:23 | PC.SPIRITC ---
provided visit for support.
[2022-01-18] MEDS: SENNOSIDES 1 TAB TABLET PO (19:26)
[2022-01-18] MEDS: TRAZODONE HCL 50 MG TABLET 25 MG PO (19:26)
[2022-01-18] MEDS: ATORVASTATIN 10 MG TABLET PO (19:26)
[2022-01-19] MEDS: OMEPRAZOLE 20 MG CAPSULE DR PO (06:59)
[2022-01-19] MEDS: ALBUTEROL INHALER 2 PUFF IH ×4 (07:12→19:39)
[2022-01-19] MEDS: VENLAFAXINE ER 75 MG CAPSULE PO (07:12)
[2022-01-19] MEDS: ACETAMINOPHEN 500 MG TABLET 1000 MG PO ×3 (07:12→19:34)
[2022-01-19] MEDS: VENLAFAXINE HCL ER 37.5 MG CAPSULE PO (07:12)
[2022-01-19] MEDS: ASPIRIN 81 MG TABLET EC PO (07:12)
[2022-01-19] MEDS: FOLIC ACID 800 MCG 1 EACH PO (07:13)
[2022-01-19] MEDS: CARBOXYMETHYLCELLULOSE (REFRESH PLUS) TEARS 1 DROP EYE-BOTH ×4 (07:13→19:39)
[2022-01-19] MEDS: POTASSIUM CHLORIDE 10 MEQ CAPSULE ER PO (07:13)
[2022-01-19] MEDS: METOPROLOL SUCCINATE (XL) 50 MG TAB 37.5 MG PO (07:13)
[2022-01-19] MEDS: NICOTINE 4 MG GUM BUCCAL ×2 (07:20→17:06)
[2022-01-19] MEDS: METFORMIN 1,000 MG TABLET 1000 MG PO ×2 (08:24→17:06)
[2022-01-19] MEDS: FUROSEMIDE 40 MG TABLET 60 MG PO (08:24)
[2022-01-19 10:07] VITALS: BMI 19.5
[2022-01-19 10:18] LABS: Cholesterol* 129 mg/dL (90-199); HDL Cholesterol* 63 mg/dL (>=50); LDL Cholesterol Calculated 39 mg/dL (<100); Triglycerides* 135 mg/dL (40-149)
[2022-01-19 11:11] VITALS: BP 138/83; RESP 22; TEMP 36.4; O2SAT 97
[2022-01-19] MEDS: ATORVASTATIN 10 MG TABLET PO (19:39)
[2022-01-19] MEDS: SENNOSIDES 1 TAB TABLET PO (19:39)
[2022-01-19] MEDS: TRAZODONE HCL 50 MG TABLET 25 MG PO (19:39)
[2022-01-19] MEDS: TRIAMCINOLONE ACETONIDE CREAM 0.1 % 1 APPLIC TOPICAL (19:40)
--- NOTE | 2022-01-19 21:23 | PC.NURSE ---
Traim cream: Med was ordered 01/17/22, did not show up in [facility] until 01/19/22. Gas Brazer has non-administered the triam cream for the days it was not in the [facility]. Resident states that staff has been applying the cream but, resume writer can not attest to that.
[2022-01-20] MEDS: OMEPRAZOLE 20 MG CAPSULE DR PO (07:15)
[2022-01-20] MEDS: ACETAMINOPHEN 500 MG TABLET 1000 MG PO ×3 (07:15→19:26)
[2022-01-20] MEDS: VENLAFAXINE HCL ER 37.5 MG CAPSULE PO (07:16)
[2022-01-20] MEDS: CARBOXYMETHYLCELLULOSE (REFRESH PLUS) TEARS 1 DROP EYE-BOTH ×4 (07:16→19:26)
[2022-01-20] MEDS: VENLAFAXINE ER 75 MG CAPSULE PO (07:16)
[2022-01-20] MEDS: ALBUTEROL INHALER 2 PUFF IH ×4 (07:16→19:26)
[2022-01-20] MEDS: METOPROLOL SUCCINATE (XL) 50 MG TAB 37.5 MG PO (07:16)
[2022-01-20] MEDS: ASPIRIN 81 MG TABLET EC PO (07:16)
[2022-01-20] MEDS: TRIAMCINOLONE ACETONIDE CREAM 0.1 % 1 APPLIC TOPICAL ×2 (07:17→19:37)
[2022-01-20] MEDS: NICOTINE 4 MG GUM BUCCAL ×2 (07:20→17:17)
[2022-01-20] MEDS: FUROSEMIDE 40 MG TABLET 60 MG PO (08:12)
[2022-01-20] MEDS: METFORMIN 1,000 MG TABLET 1000 MG PO ×2 (08:12→17:17)
[2022-01-20] MEDS: POTASSIUM CHLORIDE 10 MEQ CAPSULE ER PO (08:12)
[2022-01-20] MEDS: OXYCODONE 5 MG TABLET PO (19:24)
[2022-01-20] MEDS: ATORVASTATIN 10 MG TABLET PO (19:26)
[2022-01-20] MEDS: TRAZODONE HCL 50 MG TABLET 25 MG PO (19:26)
[2022-01-20] MEDS: SENNOSIDES 1 TAB TABLET PO (19:26)
[2022-01-21] MEDS: NICOTINE 4 MG GUM BUCCAL ×2 (07:05→17:06)
[2022-01-21] MEDS: VENLAFAXINE ER 75 MG CAPSULE PO (07:16)
[2022-01-21] MEDS: VENLAFAXINE HCL ER 37.5 MG CAPSULE PO (07:16)
[2022-01-21] MEDS: FOLIC ACID 800 MCG 1 EACH PO (07:16)
[2022-01-21] MEDS: ACETAMINOPHEN 500 MG TABLET 1000 MG PO ×3 (07:16→19:24)
[2022-01-21] MEDS: METOPROLOL SUCCINATE (XL) 50 MG TAB 37.5 MG PO (07:16)
[2022-01-21] MEDS: CARBOXYMETHYLCELLULOSE (REFRESH PLUS) TEARS 1 DROP EYE-BOTH ×4 (07:16→19:24)
[2022-01-21] MEDS: ALBUTEROL INHALER 2 PUFF IH ×4 (07:16→19:24)
[2022-01-21] MEDS: OMEPRAZOLE 20 MG CAPSULE DR PO (07:16)
[2022-01-21] MEDS: ASPIRIN 81 MG TABLET EC PO (07:16)
[2022-01-21] MEDS: TRIAMCINOLONE ACETONIDE CREAM 0.1 % 1 APPLIC TOPICAL ×2 (07:17→19:25)
[2022-01-21] MEDS: POTASSIUM CHLORIDE 10 MEQ CAPSULE ER PO (08:23)
[2022-01-21] MEDS: METFORMIN 1,000 MG TABLET 1000 MG PO ×2 (08:23→17:05)
[2022-01-21] MEDS: FUROSEMIDE 40 MG TABLET 60 MG PO (08:23)
[2022-01-21] MEDS: SENNOSIDES 1 TAB TABLET PO (19:24)
[2022-01-21] MEDS: ATORVASTATIN 10 MG TABLET PO (19:24)
[2022-01-21] MEDS: TRAZODONE HCL 50 MG TABLET 25 MG PO (19:24)
[2022-01-21] MEDS: OXYCODONE 5 MG TABLET PO (19:29)
[2022-01-22] MEDS: OMEPRAZOLE 20 MG CAPSULE DR PO (06:22)
[2022-01-22] MEDS: ACETAMINOPHEN 500 MG TABLET 1000 MG PO ×3 (08:26→19:17)
[2022-01-22] MEDS: FUROSEMIDE 40 MG TABLET 60 MG PO (08:26)
[2022-01-22] MEDS: VENLAFAXINE HCL ER 37.5 MG CAPSULE PO (08:26)
[2022-01-22] MEDS: FOLIC ACID 800 MCG 1 EACH PO (08:26)
[2022-01-22] MEDS: VENLAFAXINE ER 75 MG CAPSULE PO (08:26)
[2022-01-22] MEDS: POTASSIUM CHLORIDE 10 MEQ CAPSULE ER PO (08:26)
[2022-01-22] MEDS: METFORMIN 1,000 MG TABLET 1000 MG PO ×2 (08:26→17:14)
[2022-01-22] MEDS: ALBUTEROL INHALER 2 PUFF IH ×4 (08:26→19:17)
[2022-01-22] MEDS: METOPROLOL SUCCINATE (XL) 50 MG TAB 37.5 MG PO (08:26)
[2022-01-22] MEDS: ASPIRIN 81 MG TABLET EC PO (08:26)
[2022-01-22] MEDS: TRIAMCINOLONE ACETONIDE CREAM 0.1 % 1 APPLIC TOPICAL ×2 (08:27→19:23)
[2022-01-22] MEDS: CARBOXYMETHYLCELLULOSE (REFRESH PLUS) TEARS 1 DROP EYE-BOTH ×4 (08:27→19:17)
--- NOTE | 2022-01-22 09:42 | PC.NURSE ---
Medication reorder - 2 doses left in Trelegy inhaler. Trelegy inhaler reordered on 01/17. Still have not received inhaler refill. Called [facility] after hours line. Spoke to nurse and requested Trelegy inhaler refill. Nurse said she would send refill this afternoon.
[2022-01-22] MEDS: NICOTINE 4 MG GUM BUCCAL (17:15)
[2022-01-22] MEDS: TRAZODONE HCL 50 MG TABLET 25 MG PO (19:17)
[2022-01-22] MEDS: ATORVASTATIN 10 MG TABLET PO (19:17)
[2022-01-22] MEDS: SENNOSIDES 1 TAB TABLET PO (19:17)
[2022-01-23] MEDS: OMEPRAZOLE 20 MG CAPSULE DR PO (06:30)
[2022-01-23] MEDS: NICOTINE 4 MG GUM BUCCAL ×2 (08:30→19:21)
[2022-01-23] MEDS: VENLAFAXINE ER 75 MG CAPSULE PO (08:45)
[2022-01-23] MEDS: METOPROLOL SUCCINATE (XL) 50 MG TAB 37.5 MG PO (08:45)
[2022-01-23] MEDS: CARBOXYMETHYLCELLULOSE (REFRESH PLUS) TEARS 1 DROP EYE-BOTH ×4 (08:45→19:05)
[2022-01-23] MEDS: POTASSIUM CHLORIDE 10 MEQ CAPSULE ER PO (08:45)
[2022-01-23] MEDS: FOLIC ACID 800 MCG 1 EACH PO (08:45)
[2022-01-23] MEDS: TRIAMCINOLONE ACETONIDE CREAM 0.1 % 1 APPLIC TOPICAL ×2 (08:45→19:05)
[2022-01-23] MEDS: ASPIRIN 81 MG TABLET EC PO (08:45)
[2022-01-23] MEDS: FUROSEMIDE 40 MG TABLET 60 MG PO (08:45)
[2022-01-23] MEDS: VENLAFAXINE HCL ER 37.5 MG CAPSULE PO (08:45)
[2022-01-23] MEDS: ACETAMINOPHEN 500 MG TABLET 1000 MG PO ×3 (08:45→19:05)
[2022-01-23] MEDS: ALBUTEROL INHALER 2 PUFF IH ×4 (08:45→19:05)
[2022-01-23] MEDS: METFORMIN 1,000 MG TABLET 1000 MG PO ×2 (08:45→17:26)
[2022-01-23] MEDS: OXYCODONE 5 MG TABLET PO (19:03)
[2022-01-23] MEDS: ATORVASTATIN 10 MG TABLET PO (19:05)
[2022-01-23] MEDS: TRAZODONE HCL 50 MG TABLET 25 MG PO (19:05)
[2022-01-23] MEDS: SENNOSIDES 1 TAB TABLET PO (19:05)
[2022-01-24] MEDS: OMEPRAZOLE 20 MG CAPSULE DR PO (06:19)
[2022-01-24] MEDS: OXYCODONE 5 MG TABLET PO (06:45)
[2022-01-24] MEDS: METOPROLOL SUCCINATE (XL) 50 MG TAB 37.5 MG PO (08:46)
[2022-01-24] MEDS: FOLIC ACID 800 MCG 1 EACH PO (08:46)
[2022-01-24] MEDS: ALBUTEROL INHALER 2 PUFF IH ×4 (08:46→19:52)
[2022-01-24] MEDS: VENLAFAXINE ER 75 MG CAPSULE PO (08:46)
[2022-01-24] MEDS: ASPIRIN 81 MG TABLET EC PO (08:46)
[2022-01-24] MEDS: ACETAMINOPHEN 500 MG TABLET 1000 MG PO ×3 (08:46→19:52)
[2022-01-24] MEDS: FUROSEMIDE 40 MG TABLET 60 MG PO (08:46)
[2022-01-24] MEDS: TRIAMCINOLONE ACETONIDE CREAM 0.1 % 1 APPLIC TOPICAL ×2 (08:46→19:53)
[2022-01-24] MEDS: VENLAFAXINE HCL ER 37.5 MG CAPSULE PO (08:46)
[2022-01-24] MEDS: CARBOXYMETHYLCELLULOSE (REFRESH PLUS) TEARS 1 DROP EYE-BOTH ×4 (08:46→19:51)
[2022-01-24] MEDS: POTASSIUM CHLORIDE 10 MEQ CAPSULE ER PO (08:46)
[2022-01-24] MEDS: METFORMIN 1,000 MG TABLET 1000 MG PO ×2 (08:46→17:02)
--- NOTE | 2022-01-24 09:08 | PC.NURSE ---
Pt c/o SOB At 0645 pt c/o SOB. HR: 87, RR: 32, T: 98.4, O2: 92. Lung sounds clear x4 inspiratory and expiratory. Pt used LIAM albuterol and trelegy inhalers. O2 administered with nasal cannula 2L. At 0700 pt still felt SOB. HR: 80, RR:30, O2: 95. O2 at 2L remained on per pt request. Pt stated she felt more comfortable and wanted to sleep.
[2022-01-24] MEDS: NICOTINE 4 MG GUM BUCCAL ×2 (10:06→17:07)
[2022-01-24] MEDS: TRAZODONE HCL 50 MG TABLET 25 MG PO (19:52)
[2022-01-24] MEDS: ATORVASTATIN 10 MG TABLET PO (19:52)
[2022-01-24] MEDS: SENNOSIDES 1 TAB TABLET PO (19:52)
--- NOTE | 2022-01-25 03:42 | PC.NURSE ---
WEEKLY CHARTING - WEEK 1: Vital signs reviewed with no concerns. Temporary and comprehensive care plan reviewed - no change. Has chronic right shoulder pain and back pain. Receives acetaminophen 1000mg TID and daily PRN with no PRN use. Oxycodone 5mg Q 6 hours PRN - utilized x10 in last month. Independent with dressing, grooming, personal hygiene, and oral care. Will call for assist as needed. Supervision with bathing. Low concentrated sweets, regular texture with thin liquids. Eats independently after set-up. Weight is stable.
[2022-01-25] MEDS: OMEPRAZOLE 20 MG CAPSULE DR PO (06:24)
[2022-01-25] MEDS: ALBUTEROL INHALER 2 PUFF IH ×4 (08:08→19:05)
[2022-01-25] MEDS: METFORMIN 1,000 MG TABLET 1000 MG PO ×2 (08:08→17:18)
[2022-01-25] MEDS: ACETAMINOPHEN 500 MG TABLET 1000 MG PO ×3 (08:08→19:05)
[2022-01-25] MEDS: ASPIRIN 81 MG TABLET EC PO (08:08)
[2022-01-25] MEDS: FUROSEMIDE 40 MG TABLET 60 MG PO (08:08)
[2022-01-25] MEDS: METOPROLOL SUCCINATE (XL) 50 MG TAB 37.5 MG PO (08:08)
[2022-01-25] MEDS: VENLAFAXINE HCL ER 37.5 MG CAPSULE PO (08:08)
[2022-01-25] MEDS: VENLAFAXINE ER 75 MG CAPSULE PO (08:08)
[2022-01-25] MEDS: POTASSIUM CHLORIDE 10 MEQ CAPSULE ER PO (08:09)
[2022-01-25] MEDS: TRIAMCINOLONE ACETONIDE CREAM 0.1 % 1 APPLIC TOPICAL ×2 (08:09→19:05)
[2022-01-25] MEDS: FOLIC ACID 800 MCG 1 EACH PO (08:09)
[2022-01-25] MEDS: CARBOXYMETHYLCELLULOSE (REFRESH PLUS) TEARS 1 DROP EYE-BOTH ×4 (08:09→19:05)
[2022-01-25] MEDS: NICOTINE 4 MG GUM BUCCAL ×2 (08:30→20:13)
--- NOTE | 2022-01-25 11:15 | PC.NURSE ---
Week #1: Comprehensive care plan reviewed, no changes made. Nothing added to temporary care plan. Resident is independent with dressing, grooming, oral cares and feeding. Will call for assist as needed. Needs supervision with bathing. Is on regular diet, regular texture, thin liquids. No problems with chewing/swallowing reported. Vital signs reviewed, no concerns. Pain: Has chronic (R) shoulder and back pain. Pain managed with Tylenol 1000mg TID & daily PRN & no use currently. Also has an order for Oxycodone 5mg Q6H PRN and has used occasionally with relief. She is able to verbalize when in pain.
[2022-01-25] MEDS: ATORVASTATIN 10 MG TABLET PO (19:05)
[2022-01-25] MEDS: SENNOSIDES 1 TAB TABLET PO (19:05)
[2022-01-25] MEDS: TRAZODONE HCL 50 MG TABLET 25 MG PO (19:05)
[2022-01-26] MEDS: OMEPRAZOLE 20 MG CAPSULE DR PO (06:37)
[2022-01-26] MEDS: VENLAFAXINE HCL ER 37.5 MG CAPSULE PO (07:37)
[2022-01-26] MEDS: ASPIRIN 81 MG TABLET EC PO (07:37)
[2022-01-26] MEDS: VENLAFAXINE ER 75 MG CAPSULE PO (07:37)
[2022-01-26] MEDS: FUROSEMIDE 40 MG TABLET 60 MG PO (07:37)
[2022-01-26] MEDS: METOPROLOL SUCCINATE (XL) 50 MG TAB 37.5 MG PO (07:37)
[2022-01-26] MEDS: ACETAMINOPHEN 500 MG TABLET 1000 MG PO ×3 (07:37→19:20)
[2022-01-26] MEDS: FOLIC ACID 800 MCG 1 EACH PO (07:37)
[2022-01-26] MEDS: METFORMIN 1,000 MG TABLET 1000 MG PO ×2 (07:37→17:17)
[2022-01-26] MEDS: ALBUTEROL INHALER 2 PUFF IH ×4 (07:37→19:18)
[2022-01-26] MEDS: TRIAMCINOLONE ACETONIDE CREAM 0.1 % 1 APPLIC TOPICAL ×2 (07:38→19:20)
[2022-01-26] MEDS: POTASSIUM CHLORIDE 10 MEQ CAPSULE ER PO (07:38)
[2022-01-26] MEDS: CARBOXYMETHYLCELLULOSE (REFRESH PLUS) TEARS 1 DROP EYE-BOTH ×4 (07:38→19:18)
[2022-01-26 10:36] VITALS: BMI 44.3
[2022-01-26 11:12] VITALS: BP 109/74; PULSE 81; RESP 18; TEMP 36.8; O2SAT 95
[2022-01-26] MEDS: NICOTINE 4 MG GUM BUCCAL (17:17)
[2022-01-26] MEDS: OXYCODONE 5 MG TABLET PO (19:19)
[2022-01-26] MEDS: ATORVASTATIN 10 MG TABLET PO (19:20)
[2022-01-26] MEDS: SENNOSIDES 1 TAB TABLET PO (19:20)
[2022-01-26] MEDS: TRAZODONE HCL 50 MG TABLET 25 MG PO (19:20)
[2022-01-27] MEDS: OMEPRAZOLE 20 MG CAPSULE DR PO (06:54)
[2022-01-27] MEDS: VENLAFAXINE ER 75 MG CAPSULE PO (07:30)
[2022-01-27] MEDS: VENLAFAXINE HCL ER 37.5 MG CAPSULE PO (07:30)
[2022-01-27] MEDS: CARBOXYMETHYLCELLULOSE (REFRESH PLUS) TEARS 1 DROP EYE-BOTH ×4 (07:30→19:54)
[2022-01-27] MEDS: ACETAMINOPHEN 500 MG TABLET 1000 MG PO ×3 (07:30→19:39)
[2022-01-27] MEDS: METOPROLOL SUCCINATE (XL) 50 MG TAB 37.5 MG PO (07:30)
[2022-01-27] MEDS: ALBUTEROL INHALER 2 PUFF IH ×4 (07:30→19:54)
[2022-01-27] MEDS: ASPIRIN 81 MG TABLET EC PO (07:30)
[2022-01-27] MEDS: TRIAMCINOLONE ACETONIDE CREAM 0.1 % 1 APPLIC TOPICAL ×2 (07:31→19:54)
[2022-01-27] MEDS: NICOTINE 4 MG GUM BUCCAL ×2 (07:32→17:17)
[2022-01-27] MEDS: METFORMIN 1,000 MG TABLET 1000 MG PO ×2 (08:22→17:17)
[2022-01-27] MEDS: FUROSEMIDE 40 MG TABLET 60 MG PO (08:22)
[2022-01-27] MEDS: POTASSIUM CHLORIDE 10 MEQ CAPSULE ER PO (08:22)
--- NOTE | 2022-01-27 11:50 | PC.NURSE ---
Recert Visit: Resident seen by DR. Rose. Orders reviewed and renewed of 75 days with changes. Order: Decrease Toprol XL to 25mg daily, D/C Atovarstatin.
[2022-01-27] MEDS: OXYCODONE 5 MG TABLET PO (19:45)
[2022-01-27] MEDS: TRAZODONE HCL 50 MG TABLET 25 MG PO (19:54)
[2022-01-27] MEDS: SENNOSIDES 1 TAB TABLET PO (19:54)
[2022-01-27 21:20] VITALS: BP 112/58
[2022-01-28] MEDS: OMEPRAZOLE 20 MG CAPSULE DR PO (06:57)
[2022-01-28] MEDS: ALBUTEROL INHALER 2 PUFF IH ×4 (07:08→19:53)
[2022-01-28] MEDS: ACETAMINOPHEN 500 MG TABLET 1000 MG PO ×3 (07:08→19:53)
[2022-01-28] MEDS: ASPIRIN 81 MG TABLET EC PO (07:08)
[2022-01-28] MEDS: FOLIC ACID 800 MCG 1 EACH PO (07:09)
[2022-01-28] MEDS: VENLAFAXINE HCL ER 37.5 MG CAPSULE PO (07:09)
[2022-01-28] MEDS: VENLAFAXINE ER 75 MG CAPSULE PO (07:09)
[2022-01-28] MEDS: METOPROLOL SUCCINATE (XL) 50 MG TAB 25 MG PO (07:09)
[2022-01-28] MEDS: TRIAMCINOLONE ACETONIDE CREAM 0.1 % 1 APPLIC TOPICAL ×2 (07:09→19:54)
[2022-01-28] MEDS: CARBOXYMETHYLCELLULOSE (REFRESH PLUS) TEARS 1 DROP EYE-BOTH ×4 (07:09→19:53)
[2022-01-28] MEDS: NICOTINE 4 MG GUM BUCCAL ×2 (07:25→17:09)
[2022-01-28] MEDS: METFORMIN 1,000 MG TABLET 1000 MG PO ×2 (08:20→17:08)
[2022-01-28] MEDS: FUROSEMIDE 40 MG TABLET 60 MG PO (08:20)
[2022-01-28] MEDS: POTASSIUM CHLORIDE 10 MEQ CAPSULE ER PO (08:21)
[2022-01-28 16:00] VITALS: BP 123/68
[2022-01-28] MEDS: TRAZODONE HCL 50 MG TABLET 25 MG PO (19:54)
[2022-01-28] MEDS: SENNOSIDES 1 TAB TABLET PO (19:54)
[2022-01-29] MEDS: OMEPRAZOLE 20 MG CAPSULE DR PO (07:09)
[2022-01-29] MEDS: ACETAMINOPHEN 500 MG TABLET 1000 MG PO ×3 (07:09→19:55)
[2022-01-29] MEDS: METOPROLOL SUCCINATE (XL) 50 MG TAB 25 MG PO (07:10)
[2022-01-29] MEDS: NICOTINE 4 MG GUM BUCCAL ×2 (07:10→17:15)
[2022-01-29] MEDS: ASPIRIN 81 MG TABLET EC PO (07:10)
[2022-01-29] MEDS: VENLAFAXINE ER 75 MG CAPSULE PO (07:10)
[2022-01-29] MEDS: TRIAMCINOLONE ACETONIDE CREAM 0.1 % 1 APPLIC TOPICAL ×2 (07:10→19:56)
[2022-01-29] MEDS: VENLAFAXINE HCL ER 37.5 MG CAPSULE PO (07:10)
[2022-01-29] MEDS: FOLIC ACID 800 MCG 1 EACH PO (07:10)
[2022-01-29] MEDS: ALBUTEROL INHALER 2 PUFF IH ×4 (07:10→19:55)
[2022-01-29] MEDS: CARBOXYMETHYLCELLULOSE (REFRESH PLUS) TEARS 1 DROP EYE-BOTH ×4 (07:10→19:55)
[2022-01-29] MEDS: FUROSEMIDE 40 MG TABLET 60 MG PO (08:26)
[2022-01-29] MEDS: METFORMIN 1,000 MG TABLET 1000 MG PO ×2 (08:27→17:15)
[2022-01-29] MEDS: POTASSIUM CHLORIDE 10 MEQ CAPSULE ER PO (08:27)
[2022-01-29] MEDS: LOPERAMIDE HCL 2 MG CAPSULE PO (11:44)
[2022-01-29 16:00] VITALS: BP 106/67
[2022-01-29] MEDS: SENNOSIDES 1 TAB TABLET PO (19:55)
[2022-01-29] MEDS: TRAZODONE HCL 50 MG TABLET 25 MG PO (19:55)
[2022-01-30] MEDS: OMEPRAZOLE 20 MG CAPSULE DR PO (06:38)
[2022-01-30] MEDS: ASPIRIN 81 MG TABLET EC PO (07:03)
[2022-01-30] MEDS: METOPROLOL SUCCINATE (XL) 50 MG TAB 25 MG PO (07:03)
[2022-01-30] MEDS: VENLAFAXINE ER 75 MG CAPSULE PO (07:03)
[2022-01-30] MEDS: ALBUTEROL INHALER 2 PUFF IH ×4 (07:03→19:29)
[2022-01-30] MEDS: ACETAMINOPHEN 500 MG TABLET 1000 MG PO ×3 (07:03→19:29)
[2022-01-30] MEDS: FOLIC ACID 800 MCG 1 EACH PO (07:03)
[2022-01-30] MEDS: VENLAFAXINE HCL ER 37.5 MG CAPSULE PO (07:03)
[2022-01-30] MEDS: TRIAMCINOLONE ACETONIDE CREAM 0.1 % 1 APPLIC TOPICAL ×2 (07:04→19:40)
[2022-01-30] MEDS: CARBOXYMETHYLCELLULOSE (REFRESH PLUS) TEARS 1 DROP EYE-BOTH ×3 (07:04→19:29)
[2022-01-30] MEDS: FUROSEMIDE 40 MG TABLET 60 MG PO (08:13)
[2022-01-30] MEDS: METFORMIN 1,000 MG TABLET 1000 MG PO ×2 (08:13→17:14)
[2022-01-30] MEDS: POTASSIUM CHLORIDE 10 MEQ CAPSULE ER PO (08:13)
[2022-01-30] MEDS: NICOTINE 4 MG GUM BUCCAL ×2 (09:15→12:38)
--- NOTE | 2022-01-30 11:10 | PC.NURSE ---
Leave of Absence - Resident left facility at 1100 with her son. She was sent with her scheduled medications 12noon. She plans to return this evening..
--- NOTE | 2022-01-30 13:44 | PC.NURSE ---
Resident return from outing at 1215 accompanied by her son.
[2022-01-30 16:34] VITALS: BP 128/61
[2022-01-30] MEDS: SENNOSIDES 1 TAB TABLET PO (19:29)
[2022-01-30] MEDS: TRAZODONE HCL 50 MG TABLET 25 MG PO (19:29)
[2022-01-30] MEDS: OXYCODONE 5 MG TABLET PO (19:31)
[2022-01-31] MEDS: OMEPRAZOLE 20 MG CAPSULE DR PO (06:21)
[2022-01-31] MEDS: ALBUTEROL INHALER 2 PUFF IH ×4 (07:41→19:30)
[2022-01-31] MEDS: ASPIRIN 81 MG TABLET EC PO (07:41)
[2022-01-31] MEDS: VENLAFAXINE ER 75 MG CAPSULE PO (07:41)
[2022-01-31] MEDS: ACETAMINOPHEN 500 MG TABLET 1000 MG PO ×3 (07:41→19:30)
[2022-01-31] MEDS: FUROSEMIDE 40 MG TABLET 60 MG PO (07:42)
[2022-01-31] MEDS: FOLIC ACID 800 MCG 1 EACH PO (07:42)
[2022-01-31] MEDS: TRIAMCINOLONE ACETONIDE CREAM 0.1 % 1 APPLIC TOPICAL (07:42)
[2022-01-31] MEDS: CARBOXYMETHYLCELLULOSE (REFRESH PLUS) TEARS 1 DROP EYE-BOTH ×4 (07:42→19:29)
[2022-01-31] MEDS: VENLAFAXINE HCL ER 37.5 MG CAPSULE PO (07:42)
[2022-01-31] MEDS: METOPROLOL SUCCINATE (XL) 50 MG TAB 25 MG PO (07:42)
[2022-01-31] MEDS: METFORMIN 1,000 MG TABLET 1000 MG PO ×2 (07:42→17:05)
[2022-01-31] MEDS: POTASSIUM CHLORIDE 10 MEQ CAPSULE ER PO (07:42)
[2022-01-31] MEDS: NICOTINE 4 MG GUM BUCCAL ×2 (08:30→17:05)
[2022-01-31] MEDS: OXYCODONE 5 MG TABLET PO (08:55)
--- NOTE | 2022-01-31 10:16 | PC.NURSE ---
Podiatry: Resident was seen by in-house manufacturing technology professor. No order.
[2022-01-31] MEDS: MAGNESIUM HYDROXIDE 30 ML ORAL.SUSP PO (10:46)
[2022-01-31] MEDS: SENNOSIDES 1 TAB TABLET PO (19:30)
[2022-01-31] MEDS: TRAZODONE HCL 50 MG TABLET 25 MG PO (19:30)
--- NOTE | 2022-02-01 01:22 | PC.NURSE ---
WEEKLY CHARTING - WEEK 1: Vital signs reviewed with no concerns. Temporary and comprehensive care plan reviewed - no change. Resident is independent with mobility. Uses 4WW for mobility. Uses half side rails bilaterally to aid with bed mobility/positioning. Resident is at low risk for falls per fall risk assessment.
[2022-02-01] MEDS: OMEPRAZOLE 20 MG CAPSULE DR PO (06:28)
--- NOTE | 2022-02-01 06:38 | PC.NURSE ---
Week #2: Comprehensive care plan reviewed, no changes made. Nothing added to temporary care plan. Resident is independent with transfers, ambulation, and bed mobility. Transfers/ambulates with a 4ww. Uses wheelchair when going for outings and is dependent with propulsion. Top side rails up to aid for bed mobility/positioning. Vital signs reviewed by MD on 01/28/22. Metoprolol decreased. Continue with weekly vital signs monitoring. Fall: No falls the past month. Remains a low fall risk according to assessment done on 12/15/21.
[2022-02-01] MEDS: VENLAFAXINE ER 75 MG CAPSULE PO (08:43)
[2022-02-01] MEDS: ASPIRIN 81 MG TABLET EC PO (08:43)
[2022-02-01] MEDS: VENLAFAXINE HCL ER 37.5 MG CAPSULE PO (08:43)
[2022-02-01] MEDS: ACETAMINOPHEN 500 MG TABLET 1000 MG PO ×3 (08:43→19:34)
[2022-02-01] MEDS: FUROSEMIDE 40 MG TABLET 60 MG PO (08:43)
[2022-02-01] MEDS: ALBUTEROL INHALER 2 PUFF IH ×4 (08:43→19:34)
[2022-02-01] MEDS: METOPROLOL SUCCINATE (XL) 50 MG TAB 25 MG PO (08:43)
[2022-02-01] MEDS: METFORMIN 1,000 MG TABLET 1000 MG PO ×2 (08:43→17:24)
[2022-02-01] MEDS: FOLIC ACID 800 MCG 1 EACH PO (08:43)
[2022-02-01] MEDS: POTASSIUM CHLORIDE 10 MEQ CAPSULE ER PO (08:44)
[2022-02-01] MEDS: CARBOXYMETHYLCELLULOSE (REFRESH PLUS) TEARS 1 DROP EYE-BOTH ×4 (08:44→19:34)
--- NOTE | 2022-02-01 10:56 | PC.PHA ---
MEDICATION REVIEW: MEDICATION MONITORING: Venlafaxine 112.5 mg daily for depression continues with no apparent side effects. Trazodone GDR in process since December review. Polypharmacy continues, patient uses scheduled and prn inhalers for COPD and multiple meds for rheumatoid arthritis. Metoprolol dose decreased recently, BP and pulse history reviewed no concerns. furosemide and potassium for CHF, most recent labs were 09/28/21 Metformin 1000 mg bid continues with crcl~29 ml/min IRREGULARITY OR COMMENTS: Patient did have statin stopped this month and recent lipid profile reviewed, agree with stopping as patient was growing tired of multiple scheduled medications. Pain medication needs have decreased since last review. Patient continues to be active here and on outings with family. No antibiotics or benzodiazepines prescribed since last review. SUGGESTED COURSE OF ACTION: Continue monitoring renal function as CrCl in September was less that 30 ml/min, while taking metformin.
[2022-02-01] MEDS: NICOTINE 4 MG GUM BUCCAL (17:24)
[2022-02-01] MEDS: OXYCODONE 5 MG TABLET PO (18:56)
[2022-02-01] MEDS: SENNOSIDES 1 TAB TABLET PO (19:34)
[2022-02-01] MEDS: TRAZODONE HCL 50 MG TABLET 25 MG PO (19:34)
[2022-02-02] MEDS: ASPIRIN 81 MG TABLET EC PO (07:11)
[2022-02-02] MEDS: ACETAMINOPHEN 500 MG TABLET 1000 MG PO ×3 (07:11→19:58)
[2022-02-02] MEDS: OMEPRAZOLE 20 MG CAPSULE DR PO (07:11)
[2022-02-02] MEDS: ALBUTEROL INHALER 2 PUFF IH ×4 (07:11→20:01)
[2022-02-02] MEDS: VENLAFAXINE HCL ER 37.5 MG CAPSULE PO (07:12)
[2022-02-02] MEDS: FOLIC ACID 800 MCG 1 EACH PO (07:12)
[2022-02-02] MEDS: METOPROLOL SUCCINATE (XL) 50 MG TAB 25 MG PO (07:12)
[2022-02-02] MEDS: VENLAFAXINE ER 75 MG CAPSULE PO (07:12)
[2022-02-02] MEDS: CARBOXYMETHYLCELLULOSE (REFRESH PLUS) TEARS 1 DROP EYE-BOTH ×4 (07:12→20:01)
[2022-02-02] MEDS: NICOTINE 4 MG GUM BUCCAL ×2 (07:20→17:09)
[2022-02-02] MEDS: FUROSEMIDE 40 MG TABLET 60 MG PO (08:31)
[2022-02-02] MEDS: POTASSIUM CHLORIDE 10 MEQ CAPSULE ER PO (08:31)
[2022-02-02] MEDS: METFORMIN 1,000 MG TABLET 1000 MG PO ×2 (08:31→17:09)
[2022-02-02 13:13] VITALS: BP 100/60; PULSE 84; RESP 22; TEMP 36.4; O2SAT 93
[2022-02-02 13:15] VITALS: BMI 20.2
[2022-02-02] MEDS: TRAZODONE HCL 50 MG TABLET 25 MG PO (20:01)
[2022-02-02] MEDS: SENNOSIDES 1 TAB TABLET PO (20:01)
[2022-02-03] MEDS: OMEPRAZOLE 20 MG CAPSULE DR PO (06:46)
[2022-02-03] MEDS: ACETAMINOPHEN 500 MG TABLET 1000 MG PO ×3 (08:03→20:04)
[2022-02-03] MEDS: FUROSEMIDE 40 MG TABLET 60 MG PO (08:04)
[2022-02-03] MEDS: METOPROLOL SUCCINATE (XL) 50 MG TAB 25 MG PO (08:04)
[2022-02-03] MEDS: VENLAFAXINE ER 75 MG CAPSULE PO (08:04)
[2022-02-03] MEDS: CARBOXYMETHYLCELLULOSE (REFRESH PLUS) TEARS 1 DROP EYE-BOTH ×4 (08:04→19:56)
[2022-02-03] MEDS: POTASSIUM CHLORIDE 10 MEQ CAPSULE ER PO (08:04)
[2022-02-03] MEDS: ALBUTEROL INHALER 2 PUFF IH ×4 (08:04→19:57)
[2022-02-03] MEDS: VENLAFAXINE HCL ER 37.5 MG CAPSULE PO (08:04)
[2022-02-03] MEDS: ASPIRIN 81 MG TABLET EC PO (08:04)
[2022-02-03] MEDS: METFORMIN 1,000 MG TABLET 1000 MG PO ×2 (08:04→17:13)
[2022-02-03] MEDS: NICOTINE 4 MG GUM BUCCAL (17:13)
[2022-02-03] MEDS: OXYCODONE 5 MG TABLET PO (20:03)
[2022-02-03] MEDS: SENNOSIDES 1 TAB TABLET PO (20:04)
[2022-02-03] MEDS: TRAZODONE HCL 50 MG TABLET 25 MG PO (20:05)
[2022-02-04] MEDS: OMEPRAZOLE 20 MG CAPSULE DR PO (06:28)
[2022-02-04] MEDS: NICOTINE 4 MG GUM BUCCAL ×2 (08:30→17:12)
[2022-02-04] MEDS: FUROSEMIDE 40 MG TABLET 60 MG PO (08:41)
[2022-02-04] MEDS: METOPROLOL SUCCINATE (XL) 50 MG TAB 25 MG PO (08:41)
[2022-02-04] MEDS: CARBOXYMETHYLCELLULOSE (REFRESH PLUS) TEARS 1 DROP EYE-BOTH ×4 (08:41→19:29)
[2022-02-04] MEDS: POTASSIUM CHLORIDE 10 MEQ CAPSULE ER PO (08:41)
[2022-02-04] MEDS: ALBUTEROL INHALER 2 PUFF IH ×4 (08:41→19:29)
[2022-02-04] MEDS: FOLIC ACID 800 MCG 1 EACH PO (08:41)
[2022-02-04] MEDS: ASPIRIN 81 MG TABLET EC PO (08:41)
[2022-02-04] MEDS: VENLAFAXINE HCL ER 37.5 MG CAPSULE PO (08:41)
[2022-02-04] MEDS: ACETAMINOPHEN 500 MG TABLET 1000 MG PO ×3 (08:41→19:29)
[2022-02-04] MEDS: METFORMIN 1,000 MG TABLET 1000 MG PO ×2 (08:41→17:11)
[2022-02-04] MEDS: VENLAFAXINE ER 75 MG CAPSULE PO (08:41)
[2022-02-04] MEDS: SENNOSIDES 1 TAB TABLET PO (19:29)
[2022-02-04] MEDS: TRAZODONE HCL 50 MG TABLET 25 MG PO (19:29)
[2022-02-05] MEDS: OMEPRAZOLE 20 MG CAPSULE DR PO (06:24)
[2022-02-05] MEDS: ALBUTEROL INHALER 2 PUFF IH ×4 (08:25→19:46)
[2022-02-05] MEDS: ACETAMINOPHEN 500 MG TABLET 1000 MG PO ×3 (08:25→19:46)
[2022-02-05] MEDS: ASPIRIN 81 MG TABLET EC PO (08:25)
[2022-02-05] MEDS: FOLIC ACID 800 MCG 1 EACH PO (08:26)
[2022-02-05] MEDS: VENLAFAXINE ER 75 MG CAPSULE PO (08:26)
[2022-02-05] MEDS: CARBOXYMETHYLCELLULOSE (REFRESH PLUS) TEARS 1 DROP EYE-BOTH ×4 (08:26→19:46)
[2022-02-05] MEDS: POTASSIUM CHLORIDE 10 MEQ CAPSULE ER PO (08:26)
[2022-02-05] MEDS: VENLAFAXINE HCL ER 37.5 MG CAPSULE PO (08:26)
[2022-02-05] MEDS: METFORMIN 1,000 MG TABLET 1000 MG PO ×2 (08:26→17:02)
[2022-02-05] MEDS: METOPROLOL SUCCINATE (XL) 50 MG TAB 25 MG PO (08:26)
[2022-02-05] MEDS: FUROSEMIDE 40 MG TABLET 60 MG PO (08:26)
[2022-02-05] MEDS: NICOTINE 4 MG GUM BUCCAL (17:02)
[2022-02-05] MEDS: TRAZODONE HCL 50 MG TABLET 25 MG PO (19:46)
[2022-02-05] MEDS: SENNOSIDES 1 TAB TABLET PO (19:46)
[2022-02-06] MEDS: OMEPRAZOLE 20 MG CAPSULE DR PO (06:34)
[2022-02-06] MEDS: NICOTINE 4 MG GUM BUCCAL ×2 (08:30→17:38)
[2022-02-06] MEDS: ALBUTEROL INHALER 2 PUFF IH ×4 (08:37→19:39)
[2022-02-06] MEDS: ASPIRIN 81 MG TABLET EC PO (08:37)
[2022-02-06] MEDS: METOPROLOL SUCCINATE (XL) 50 MG TAB 25 MG PO (08:37)
[2022-02-06] MEDS: FOLIC ACID 800 MCG 1 EACH PO (08:37)
[2022-02-06] MEDS: ACETAMINOPHEN 500 MG TABLET 1000 MG PO ×3 (08:37→19:39)
[2022-02-06] MEDS: METFORMIN 1,000 MG TABLET 1000 MG PO ×2 (08:37→17:31)
[2022-02-06] MEDS: VENLAFAXINE HCL ER 37.5 MG CAPSULE PO (08:37)
[2022-02-06] MEDS: CARBOXYMETHYLCELLULOSE (REFRESH PLUS) TEARS 1 DROP EYE-BOTH ×4 (08:37→19:39)
[2022-02-06] MEDS: FUROSEMIDE 40 MG TABLET 60 MG PO (08:37)
[2022-02-06] MEDS: POTASSIUM CHLORIDE 10 MEQ CAPSULE ER PO (08:37)
[2022-02-06] MEDS: VENLAFAXINE ER 75 MG CAPSULE PO (08:37)
[2022-02-06] MEDS: OXYCODONE 5 MG TABLET PO (12:03)
[2022-02-06] MEDS: SENNOSIDES 1 TAB TABLET PO (19:39)
[2022-02-06] MEDS: TRAZODONE HCL 50 MG TABLET 25 MG PO (19:40)
[2022-02-07] MEDS: OMEPRAZOLE 20 MG CAPSULE DR PO (06:37)
[2022-02-07] MEDS: NICOTINE 4 MG GUM BUCCAL ×2 (08:27→17:17)
[2022-02-07] MEDS: ACETAMINOPHEN 500 MG TABLET 1000 MG PO ×3 (08:45→19:30)
[2022-02-07] MEDS: METFORMIN 1,000 MG TABLET 1000 MG PO ×2 (08:46→17:16)
[2022-02-07] MEDS: POTASSIUM CHLORIDE 10 MEQ CAPSULE ER PO (08:46)
[2022-02-07] MEDS: ALBUTEROL INHALER 2 PUFF IH ×4 (08:46→19:30)
[2022-02-07] MEDS: FUROSEMIDE 40 MG TABLET 60 MG PO (08:46)
[2022-02-07] MEDS: VENLAFAXINE ER 75 MG CAPSULE PO (08:46)
[2022-02-07] MEDS: VENLAFAXINE HCL ER 37.5 MG CAPSULE PO (08:46)
[2022-02-07] MEDS: FOLIC ACID 800 MCG 1 EACH PO (08:46)
[2022-02-07] MEDS: ASPIRIN 81 MG TABLET EC PO (08:46)
[2022-02-07] MEDS: CARBOXYMETHYLCELLULOSE (REFRESH PLUS) TEARS 1 DROP EYE-BOTH ×4 (08:46→19:30)
[2022-02-07] MEDS: METOPROLOL SUCCINATE (XL) 50 MG TAB 25 MG PO (08:46)
[2022-02-07] MEDS: SENNOSIDES 1 TAB TABLET PO (19:30)
[2022-02-07] MEDS: TRAZODONE HCL 50 MG TABLET 25 MG PO (19:31)
--- NOTE | 2022-02-08 03:05 | PC.NURSE ---
WEEKLY CHARTING - WEEK 3: Vital signs reviewed and noted WNL. Temporary and comprehensive care plan reviewed with no change. Per weekly skin assessment, no current skin integrity issues. Continent of bowel. Primarily continent of bladder. Has occasional incontinence. Is independent with toileting including pad management and bryanna-cares.
[2022-02-08] MEDS: OMEPRAZOLE 20 MG CAPSULE DR PO (06:58)
--- NOTE | 2022-02-08 07:02 | PC.NURSE ---
Week #3 - Toileting: Comprehensive care plan reviewed, no changes made. Nothing added to temporary care plan. Resident is generally continent of bowel and bladder. Is independent with all toileting needs including pads, bryanna cares and clothing adjustment. Will call for assist as needed. Vital signs reviewed, no concerns. Skin: No issues at this time. Skin is routinely checked during cares. And is able to report with concerns.
[2022-02-08] MEDS: NICOTINE 4 MG GUM BUCCAL ×2 (08:30→18:58)
[2022-02-08] MEDS: VENLAFAXINE ER 75 MG CAPSULE PO (08:35)
[2022-02-08] MEDS: ACETAMINOPHEN 500 MG TABLET 1000 MG PO ×3 (08:35→19:33)
[2022-02-08] MEDS: ALBUTEROL INHALER 2 PUFF IH ×4 (08:35→19:33)
[2022-02-08] MEDS: FUROSEMIDE 40 MG TABLET 60 MG PO (08:35)
[2022-02-08] MEDS: VENLAFAXINE HCL ER 37.5 MG CAPSULE PO (08:35)
[2022-02-08] MEDS: ASPIRIN 81 MG TABLET EC PO (08:35)
[2022-02-08] MEDS: POTASSIUM CHLORIDE 10 MEQ CAPSULE ER PO (08:36)
[2022-02-08] MEDS: METOPROLOL SUCCINATE (XL) 50 MG TAB 25 MG PO (08:36)
[2022-02-08] MEDS: FOLIC ACID 800 MCG 1 EACH PO (08:36)
[2022-02-08] MEDS: METFORMIN 1,000 MG TABLET 1000 MG PO ×2 (08:36→18:53)
[2022-02-08] MEDS: CARBOXYMETHYLCELLULOSE (REFRESH PLUS) TEARS 1 DROP EYE-BOTH ×4 (08:36→19:33)
[2022-02-08] MEDS: TRAZODONE HCL 50 MG TABLET 25 MG PO (19:33)
[2022-02-08] MEDS: SENNOSIDES 1 TAB TABLET PO (19:33)
[2022-02-09] MEDS: OMEPRAZOLE 20 MG CAPSULE DR PO (07:05)
[2022-02-09] MEDS: ACETAMINOPHEN 500 MG TABLET 1000 MG PO ×3 (07:05→20:24)
[2022-02-09] MEDS: METOPROLOL SUCCINATE (XL) 50 MG TAB 25 MG PO (07:06)
[2022-02-09] MEDS: FOLIC ACID 800 MCG 1 EACH PO (07:06)
[2022-02-09] MEDS: CARBOXYMETHYLCELLULOSE (REFRESH PLUS) TEARS 1 DROP EYE-BOTH ×4 (07:06→20:24)
[2022-02-09] MEDS: VENLAFAXINE HCL ER 37.5 MG CAPSULE PO (07:06)
[2022-02-09] MEDS: VENLAFAXINE ER 75 MG CAPSULE PO (07:06)
[2022-02-09] MEDS: ALBUTEROL INHALER 2 PUFF IH ×4 (07:06→20:24)
[2022-02-09] MEDS: ASPIRIN 81 MG TABLET EC PO (07:06)
[2022-02-09] MEDS: NICOTINE 4 MG GUM BUCCAL ×2 (07:07→17:16)
[2022-02-09] MEDS: POTASSIUM CHLORIDE 10 MEQ CAPSULE ER PO (08:21)
[2022-02-09] MEDS: METFORMIN 1,000 MG TABLET 1000 MG PO ×2 (08:21→17:16)
[2022-02-09] MEDS: FUROSEMIDE 40 MG TABLET 60 MG PO (08:21)
--- NOTE | 2022-02-09 08:55 | PC.NURSE ---
Met with resident to complete a side rail utilization assess, and she requested to use her left side rail to assist with repositioning while in bed due to her arthritis, COPD and HF. Likes to be able to adjust her head of the bed and uses the rail to turn over and adjust herself. Given the [facility] Bed Rail pamphlet A Guide to Bed Safety and she signed a consent form. Will get an order from the TEST WORKER and continue interventions call light in reach, walker at bedside and be din low position. Side rail is not a restraint as she is able to get in and out of bed when needed independently.
[2022-02-09 09:51] LABS: Chloride* 102 mmol/L (96-114); Potassium* 4.2 mmol/L (3.6-5.1); Sodium* 135 mmol/L (135-149)
[2022-02-09 09:53] LABS: Creatinine* 0.8 mg/dL (0.5-1.5); Est. Creatinine Clearance* 30.08; Estimated Glomerular Filt Rate 73 ml/min
--- NOTE | 2022-02-09 09:53 | PC.NURSE ---
Addendum entered by Basia Maldonado RN 02/09/22 10:53: Resident requests left side rail to be used at this time. Original Note: Verbal order Side Rails: Kurt Briones WINDLASSER: Side rail for use of safety and comfort due to DX: COPD. Resident signed consent form and given side rail educational pamphlet.
[2022-02-09 09:54] LABS: Blood Urea Nitrogen* 14 mg/dL (7-30); Calcium* 9.2 mg/dL (8.4-10.6); Carbon Dioxide* 23 mmol/L (20-32); Glucose* 240 mg/dL (60-115)
[2022-02-09 10:11] VITALS: BP 106/67; PULSE 77; RESP 18; TEMP 36.6; O2SAT 93; BMI 20.1
--- NOTE | 2022-02-09 10:56 | PC.NURSE ---
Addendum entered by Basia Maldonado RN 03/03/22 13:07: change in order Original Note: Side Rail: Okay (L) side rail in bed for comfort and safety d/t dx: COPD by Anselmo DWYER.
[2022-02-09] MEDS: SENNOSIDES 1 TAB TABLET PO (20:24)
[2022-02-09] MEDS: TRAZODONE HCL 50 MG TABLET 25 MG PO (20:24)
[2022-02-10] MEDS: VENLAFAXINE HCL ER 37.5 MG CAPSULE PO (07:05)
[2022-02-10] MEDS: ALBUTEROL INHALER 2 PUFF IH ×4 (07:05→19:55)
[2022-02-10] MEDS: ASPIRIN 81 MG TABLET EC PO (07:05)
[2022-02-10] MEDS: OMEPRAZOLE 20 MG CAPSULE DR PO (07:05)
[2022-02-10] MEDS: METOPROLOL SUCCINATE (XL) 50 MG TAB 25 MG PO (07:05)
[2022-02-10] MEDS: ACETAMINOPHEN 500 MG TABLET 1000 MG PO ×3 (07:05→19:55)
[2022-02-10] MEDS: VENLAFAXINE ER 75 MG CAPSULE PO (07:05)
[2022-02-10] MEDS: CARBOXYMETHYLCELLULOSE (REFRESH PLUS) TEARS 1 DROP EYE-BOTH ×4 (07:06→19:55)
[2022-02-10] MEDS: FUROSEMIDE 40 MG TABLET 60 MG PO (08:23)
[2022-02-10] MEDS: METFORMIN 1,000 MG TABLET 1000 MG PO ×2 (08:23→17:14)
[2022-02-10] MEDS: POTASSIUM CHLORIDE 10 MEQ CAPSULE ER PO (08:23)
[2022-02-10] MEDS: NICOTINE 4 MG GUM BUCCAL ×2 (10:14→17:14)
[2022-02-10] MEDS: LOPERAMIDE HCL 2 MG CAPSULE PO (10:14)
[2022-02-10] MEDS: OXYCODONE 5 MG TABLET PO (19:50)
[2022-02-10] MEDS: SENNOSIDES 1 TAB TABLET PO (19:55)
[2022-02-10] MEDS: TRAZODONE HCL 50 MG TABLET 25 MG PO (19:55)
[2022-02-11] MEDS: OMEPRAZOLE 20 MG CAPSULE DR PO (06:55)
[2022-02-11] MEDS: ASPIRIN 81 MG TABLET EC PO (07:20)
[2022-02-11] MEDS: ACETAMINOPHEN 500 MG TABLET 1000 MG PO ×3 (07:20→20:12)
[2022-02-11] MEDS: METOPROLOL SUCCINATE (XL) 50 MG TAB 25 MG PO (07:20)
[2022-02-11] MEDS: CARBOXYMETHYLCELLULOSE (REFRESH PLUS) TEARS 1 DROP EYE-BOTH ×4 (07:20→20:12)
[2022-02-11] MEDS: VENLAFAXINE HCL ER 37.5 MG CAPSULE PO (07:20)
[2022-02-11] MEDS: FOLIC ACID 800 MCG 1 EACH PO (07:20)
[2022-02-11] MEDS: VENLAFAXINE ER 75 MG CAPSULE PO (07:20)
[2022-02-11] MEDS: ALBUTEROL INHALER 2 PUFF IH ×4 (07:20→20:12)
[2022-02-11] MEDS: FUROSEMIDE 40 MG TABLET 60 MG PO (08:15)
[2022-02-11] MEDS: METFORMIN 1,000 MG TABLET 1000 MG PO ×2 (08:16→17:11)
[2022-02-11] MEDS: NICOTINE 4 MG GUM BUCCAL ×3 (08:37→17:30)
[2022-02-11] MEDS: POTASSIUM CHLORIDE 10 MEQ CAPSULE ER PO (08:37)
[2022-02-11] MEDS: OXYCODONE 5 MG TABLET PO (11:59)
[2022-02-11] MEDS: SENNOSIDES 1 TAB TABLET PO (20:12)
[2022-02-11] MEDS: TRAZODONE HCL 50 MG TABLET 25 MG PO (20:12)
[2022-02-12] MEDS: OMEPRAZOLE 20 MG CAPSULE DR PO (06:50)
[2022-02-12] MEDS: ASPIRIN 81 MG TABLET EC PO (07:18)
[2022-02-12] MEDS: VENLAFAXINE HCL ER 37.5 MG CAPSULE PO (07:18)
[2022-02-12] MEDS: METFORMIN 1,000 MG TABLET 1000 MG PO ×2 (07:18→19:45)
[2022-02-12] MEDS: METOPROLOL SUCCINATE (XL) 50 MG TAB 25 MG PO (07:18)
[2022-02-12] MEDS: ALBUTEROL INHALER 2 PUFF IH ×4 (07:18→19:45)
[2022-02-12] MEDS: ACETAMINOPHEN 500 MG TABLET 1000 MG PO ×3 (07:18→19:45)
[2022-02-12] MEDS: FUROSEMIDE 40 MG TABLET 60 MG PO (07:18)
[2022-02-12] MEDS: FOLIC ACID 800 MCG 1 EACH PO (07:19)
[2022-02-12] MEDS: CARBOXYMETHYLCELLULOSE (REFRESH PLUS) TEARS 1 DROP EYE-BOTH ×4 (07:19→19:46)
[2022-02-12] MEDS: POTASSIUM CHLORIDE 10 MEQ CAPSULE ER PO (07:19)
[2022-02-12] MEDS: VENLAFAXINE ER 75 MG CAPSULE PO (07:20)
[2022-02-12] MEDS: NICOTINE 4 MG GUM BUCCAL (08:35)
[2022-02-12] MEDS: polyethylene glycoL 238 GM BULK BOTTLE 17 GM PO (09:08)
[2022-02-12] MEDS: TRAZODONE HCL 50 MG TABLET 25 MG PO (19:46)
[2022-02-12] MEDS: SENNOSIDES 1 TAB TABLET PO (19:46)
[2022-02-12] MEDS: OXYCODONE 5 MG TABLET PO (20:43)
[2022-02-13] MEDS: VENLAFAXINE HCL ER 37.5 MG CAPSULE PO (07:10)
[2022-02-13] MEDS: FOLIC ACID 800 MCG 1 EACH PO (07:10)
[2022-02-13] MEDS: OMEPRAZOLE 20 MG CAPSULE DR PO (07:10)
[2022-02-13] MEDS: ACETAMINOPHEN 500 MG TABLET 1000 MG PO ×3 (07:10→20:07)
[2022-02-13] MEDS: VENLAFAXINE ER 75 MG CAPSULE PO (07:10)
[2022-02-13] MEDS: METOPROLOL SUCCINATE (XL) 50 MG TAB 25 MG PO (07:10)
[2022-02-13] MEDS: CARBOXYMETHYLCELLULOSE (REFRESH PLUS) TEARS 1 DROP EYE-BOTH ×4 (07:10→20:07)
[2022-02-13] MEDS: ALBUTEROL INHALER 2 PUFF IH ×4 (07:10→20:07)
[2022-02-13] MEDS: ASPIRIN 81 MG TABLET EC PO (07:10)
[2022-02-13] MEDS: FUROSEMIDE 40 MG TABLET 60 MG PO (08:29)
[2022-02-13] MEDS: METFORMIN 1,000 MG TABLET 1000 MG PO ×2 (08:29→17:04)
[2022-02-13] MEDS: POTASSIUM CHLORIDE 10 MEQ CAPSULE ER PO (08:29)
[2022-02-13] MEDS: NICOTINE 4 MG GUM BUCCAL ×2 (10:51→17:04)
[2022-02-13] MEDS: OXYCODONE 5 MG TABLET PO (20:07)
[2022-02-13] MEDS: SENNOSIDES 1 TAB TABLET PO (20:07)
[2022-02-13] MEDS: TRAZODONE HCL 50 MG TABLET 25 MG PO (20:07)
[2022-02-13] MEDS: HYDROCORTISONE 1 % CREAM 1 APPLIC TOPICAL (20:10)
--- NOTE | 2022-02-13 21:50 | PC.NURSE ---
Status: Resident was upset about right toe and would like someone to see it and, if they don't then she will request to go upstairs.
[2022-02-14] MEDS: OMEPRAZOLE 20 MG CAPSULE DR PO (06:36)
[2022-02-14] MEDS: NICOTINE 4 MG GUM BUCCAL ×2 (08:30→17:01)
[2022-02-14] MEDS: METFORMIN 1,000 MG TABLET 1000 MG PO ×2 (08:34→17:01)
[2022-02-14] MEDS: ACETAMINOPHEN 500 MG TABLET 1000 MG PO ×3 (08:34→19:26)
[2022-02-14] MEDS: VENLAFAXINE ER 75 MG CAPSULE PO (08:34)
[2022-02-14] MEDS: FUROSEMIDE 40 MG TABLET 60 MG PO (08:34)
[2022-02-14] MEDS: ALBUTEROL INHALER 2 PUFF IH ×4 (08:34→19:25)
[2022-02-14] MEDS: VENLAFAXINE HCL ER 37.5 MG CAPSULE PO (08:34)
[2022-02-14] MEDS: METOPROLOL SUCCINATE (XL) 50 MG TAB 25 MG PO (08:34)
[2022-02-14] MEDS: ASPIRIN 81 MG TABLET EC PO (08:34)
[2022-02-14] MEDS: FOLIC ACID 800 MCG 1 EACH PO (08:35)
[2022-02-14] MEDS: POTASSIUM CHLORIDE 10 MEQ CAPSULE ER PO (08:35)
[2022-02-14] MEDS: CARBOXYMETHYLCELLULOSE (REFRESH PLUS) TEARS 1 DROP EYE-BOTH ×4 (08:35→19:25)
--- NOTE | 2022-02-14 12:13 | PC.NURSE ---
Status: Resident upset with the new table mate, doesn't want her to be with them in the dining table. media services specialist notified. Table mate resident is upset with was seated in a different table but would like to sit in her old table.
--- NOTE | 2022-02-14 16:41 | PC.SOCIAL ---
Met with resident to discuss issues at the lunch table today. Resident states she is irritated because other resident at the table swears often and becomes frustrated and resident does not want to listen to that behavior when she is eating. Asked resident to talk with staff when the issue arises and staff can address the issue. Resident states she will discuss with staff and keep to herself and not say anything to other resident. Informed resident that this worker will discuss with nursing and follow up. Brought resident's mail to her and reviewed resident's mail. Social Work will follow up as necessary.
[2022-02-14] MEDS: TRAZODONE HCL 50 MG TABLET 25 MG PO (19:26)
[2022-02-14] MEDS: SENNOSIDES 1 TAB TABLET PO (19:26)
--- NOTE | 2022-02-15 01:37 | PC.NURSE ---
WEEKLY CHARTING - WEEK 4: Vital signs reviewed with no concerns. Temporary and comprehensive care plan reviewed - no change. No documented behaviors in the last month. Currently receives venlafaxine 112.5mg daily and trazodone 25 mg at HS with no noted adverse effects. Able to communicate needs verbally. Is cognitively intact. Minimal difficulty hearing in some environments. Staff adjust voice volume and tone accordingly. Visual deficit is corrected with glasses. All medications administered by licensed nurse. Atorvastatin discontinued and Toprol XL dosage decreased on 01/27/22. No change to health status.
[2022-02-15] MEDS: OMEPRAZOLE 20 MG CAPSULE DR PO (06:37)
--- NOTE | 2022-02-15 06:52 | PC.NURSE ---
Addendum entered by Vivian López RN 02/15/22 07:02: Is able to self administer medications. Nurse may leave meds with her and check it has been taken. Original Note: Week #4: Comprehensive care plan reviewed, no changes made. Nothing added to temporary care plan. No changes noted in communication, hearing, vision, or orientation. Resident does communicate needs. Has minimal hearing difficulty in some environment. Speaker to adjust volume when in loud environments. Visual deficit corrected by glasses. She is cognitively intact. Chronic health condition stable. Vital signs reviewed, with low values BP, noted by MD. 01/27/22 Toprol decreased to 25 mg daily. Continue weekly VS monitoring. Mood/Behavior: No issues documented last month. Continues on Effexor 112.5 mg daily. 01/17/22 Trazodone decreased to25mg @ HS. No adverse effects noted.
[2022-02-15] MEDS: VENLAFAXINE HCL ER 37.5 MG CAPSULE PO (08:25)
[2022-02-15] MEDS: ALBUTEROL INHALER 2 PUFF IH ×4 (08:25→19:29)
[2022-02-15] MEDS: METFORMIN 1,000 MG TABLET 1000 MG PO ×2 (08:25→18:04)
[2022-02-15] MEDS: FOLIC ACID 800 MCG 1 EACH PO (08:25)
[2022-02-15] MEDS: FUROSEMIDE 40 MG TABLET 60 MG PO (08:25)
[2022-02-15] MEDS: VENLAFAXINE ER 75 MG CAPSULE PO (08:25)
[2022-02-15] MEDS: ASPIRIN 81 MG TABLET EC PO (08:25)
[2022-02-15] MEDS: ACETAMINOPHEN 500 MG TABLET 1000 MG PO ×3 (08:25→19:28)
[2022-02-15] MEDS: METOPROLOL SUCCINATE (XL) 50 MG TAB 25 MG PO (08:25)
[2022-02-15] MEDS: CARBOXYMETHYLCELLULOSE (REFRESH PLUS) TEARS 1 DROP EYE-BOTH ×4 (08:25→19:29)
[2022-02-15] MEDS: POTASSIUM CHLORIDE 10 MEQ CAPSULE ER PO (08:25)
[2022-02-15] MEDS: NICOTINE 4 MG GUM BUCCAL ×2 (08:30→17:54)
[2022-02-15] MEDS: TRAZODONE HCL 50 MG TABLET 25 MG PO (19:29)
[2022-02-15] MEDS: SENNOSIDES 1 TAB TABLET PO (19:29)
[2022-02-16] MEDS: OMEPRAZOLE 20 MG CAPSULE DR PO (07:03)
[2022-02-16] MEDS: VENLAFAXINE ER 75 MG CAPSULE PO (07:03)
[2022-02-16] MEDS: ASPIRIN 81 MG TABLET EC PO (07:03)
[2022-02-16] MEDS: ACETAMINOPHEN 500 MG TABLET 1000 MG PO ×3 (07:03→19:35)
[2022-02-16] MEDS: ALBUTEROL INHALER 2 PUFF IH ×4 (07:03→19:35)
[2022-02-16] MEDS: FOLIC ACID 800 MCG 1 EACH PO (07:04)
[2022-02-16] MEDS: METOPROLOL SUCCINATE (XL) 50 MG TAB 25 MG PO (07:04)
[2022-02-16] MEDS: VENLAFAXINE HCL ER 37.5 MG CAPSULE PO (07:04)
[2022-02-16] MEDS: CARBOXYMETHYLCELLULOSE (REFRESH PLUS) TEARS 1 DROP EYE-BOTH ×4 (07:04→19:35)
[2022-02-16] MEDS: NICOTINE 4 MG GUM BUCCAL ×2 (07:06→17:01)
[2022-02-16] MEDS: HYDROCORTISONE 1 % CREAM 1 APPLIC TOPICAL (07:07)
[2022-02-16] MEDS: METFORMIN 1,000 MG TABLET 1000 MG PO ×2 (08:24→17:01)
[2022-02-16] MEDS: FUROSEMIDE 40 MG TABLET 60 MG PO (08:24)
[2022-02-16] MEDS: POTASSIUM CHLORIDE 10 MEQ CAPSULE ER PO (08:24)
[2022-02-16 10:25] VITALS: BP 117/70; PULSE 92; RESP 20; TEMP 36.3; O2SAT 96; BMI 20.1
--- NOTE | 2022-02-16 11:07 | PC.NURSE ---
Order: SIGNAL PERSON here. (R) great toe skin seen Miconazole Cream BID X 14 days.
[2022-02-16] MEDS: TRAZODONE HCL 50 MG TABLET 25 MG PO (19:35)
[2022-02-16] MEDS: SENNOSIDES 1 TAB TABLET PO (19:35)
[2022-02-17] MEDS: OMEPRAZOLE 20 MG CAPSULE DR PO (06:35)
[2022-02-17] MEDS: ALBUTEROL INHALER 2 PUFF IH (07:19)
[2022-02-17] MEDS: ASPIRIN 81 MG TABLET EC PO (07:19)
[2022-02-17] MEDS: VENLAFAXINE ER 75 MG CAPSULE PO (07:19)
[2022-02-17] MEDS: VENLAFAXINE HCL ER 37.5 MG CAPSULE PO (07:19)
[2022-02-17] MEDS: ACETAMINOPHEN 500 MG TABLET 1000 MG PO (07:19)
[2022-02-17] MEDS: METFORMIN 1,000 MG TABLET 1000 MG PO (07:20)
[2022-02-17] MEDS: METOPROLOL SUCCINATE (XL) 50 MG TAB 25 MG PO (07:20)
[2022-02-17] MEDS: FUROSEMIDE 40 MG TABLET 60 MG PO (07:20)
[2022-02-17] MEDS: CARBOXYMETHYLCELLULOSE (REFRESH PLUS) TEARS 1 DROP EYE-BOTH (07:20)
[2022-02-17] MEDS: POTASSIUM CHLORIDE 10 MEQ CAPSULE ER PO (08:33)
--- NOTE | 2022-02-17 10:40 | PC.NURSE ---
Leave of Absence - Resident left facility at 1030 with her son. She was sent with all her scheduled medications including PRN Oxycodone (19 tabs). Resident will be back in few days.
--- NOTE | 2022-02-17 15:15 | PC.NURSE ---
Side rail Assessment/Providers Orders/Informed Consent: Completed side rail utilization assessment, RBVO bilateral bed rails up to always promote independence/positioning. Requested by resident. DX: COPD per Buffy Briones NP. Bed rail informed consent form signed and filed. FDA side rail pamphlet given to resident at this time. Intervention in place/Care Plan and Care Sheets updated.
[2022-02-19] MEDS: ALBUTEROL INHALER 2 PUFF IH ×2 (15:50→19:41)
[2022-02-19] MEDS: CARBOXYMETHYLCELLULOSE (REFRESH PLUS) TEARS 1 DROP EYE-BOTH ×2 (15:50→19:41)
[2022-02-19 16:32] LABS: SARS PCR* Negative SARS-CoV-2 (Negative)
[2022-02-19] MEDS: ACETAMINOPHEN 500 MG TABLET 1000 MG PO (19:40)
[2022-02-19] MEDS: METFORMIN 1,000 MG TABLET 1000 MG PO (19:40)
[2022-02-19] MEDS: SENNOSIDES 1 TAB TABLET PO (19:41)
[2022-02-19] MEDS: TRAZODONE HCL 50 MG TABLET 25 MG PO (19:41)
--- NOTE | 2022-02-19 21:14 | PC.NURSE ---
Covid Test: Resident was out of building over 24 hours and had Covid test done with a negative result.
[2022-02-20] MEDS: OMEPRAZOLE 20 MG CAPSULE DR PO (06:32)
[2022-02-20] MEDS: VENLAFAXINE HCL ER 37.5 MG CAPSULE PO (08:35)
[2022-02-20] MEDS: CARBOXYMETHYLCELLULOSE (REFRESH PLUS) TEARS 1 DROP EYE-BOTH ×4 (08:35→19:53)
[2022-02-20] MEDS: POTASSIUM CHLORIDE 10 MEQ CAPSULE ER PO (08:35)
[2022-02-20] MEDS: VENLAFAXINE ER 75 MG CAPSULE PO (08:35)
[2022-02-20] MEDS: ALBUTEROL INHALER 2 PUFF IH ×4 (08:35→19:53)
[2022-02-20] MEDS: FUROSEMIDE 40 MG TABLET 60 MG PO (08:35)
[2022-02-20] MEDS: ACETAMINOPHEN 500 MG TABLET 1000 MG PO ×3 (08:35→19:53)
[2022-02-20] MEDS: FOLIC ACID 800 MCG 1 EACH PO (08:35)
[2022-02-20] MEDS: ASPIRIN 81 MG TABLET EC PO (08:35)
[2022-02-20] MEDS: METFORMIN 1,000 MG TABLET 1000 MG PO ×2 (08:35→17:15)
[2022-02-20] MEDS: METOPROLOL SUCCINATE (XL) 50 MG TAB 25 MG PO (08:35)
[2022-02-20 09:42] VITALS: TEMP 36.6; O2SAT 91
[2022-02-20] MEDS: OXYCODONE 5 MG TABLET PO (12:21)
--- NOTE | 2022-02-20 13:21 | PC.NURSE ---
COVID OUTBREAK TESTING: Resident provided verbal consent for outbreak COVID testing. Resident is currently asymptomatic. Resident/family will be notified only if resident is positive.
[2022-02-20 16:49] VITALS: TEMP 36.7; O2SAT 97
[2022-02-20 17:19] LABS: SARS PCR* Negative SARS-CoV-2 (Negative)
[2022-02-20] MEDS: NICOTINE 4 MG GUM BUCCAL (17:21)
[2022-02-20] MEDS: TRAZODONE HCL 50 MG TABLET 25 MG PO (19:53)
[2022-02-20] MEDS: SENNOSIDES 1 TAB TABLET PO (19:53)
[2022-02-20 23:00] VITALS: TEMP 36.7; O2SAT 94
[2022-02-21] MEDS: OMEPRAZOLE 20 MG CAPSULE DR PO (06:33)
[2022-02-21 07:00] VITALS: TEMP 36.8; O2SAT 94
[2022-02-21 07:46] LABS: Hemoglobin A1C* 8.36 % (0-5.6)
[2022-02-21] MEDS: NICOTINE 4 MG GUM BUCCAL ×2 (08:30→17:07)
[2022-02-21] MEDS: VENLAFAXINE ER 75 MG CAPSULE PO (08:30)
[2022-02-21] MEDS: ASPIRIN 81 MG TABLET EC PO (08:30)
[2022-02-21] MEDS: METFORMIN 1,000 MG TABLET 1000 MG PO ×2 (08:30→19:31)
[2022-02-21] MEDS: FUROSEMIDE 40 MG TABLET 60 MG PO (08:30)
[2022-02-21] MEDS: ACETAMINOPHEN 500 MG TABLET 1000 MG PO ×3 (08:30→19:32)
[2022-02-21] MEDS: VENLAFAXINE HCL ER 37.5 MG CAPSULE PO (08:30)
[2022-02-21] MEDS: ALBUTEROL INHALER 2 PUFF IH ×4 (08:30→19:32)
[2022-02-21] MEDS: FOLIC ACID 800 MCG 1 EACH PO (08:31)
[2022-02-21] MEDS: POTASSIUM CHLORIDE 10 MEQ CAPSULE ER PO (08:31)
[2022-02-21] MEDS: METOPROLOL SUCCINATE (XL) 50 MG TAB 25 MG PO (08:31)
[2022-02-21] MEDS: CARBOXYMETHYLCELLULOSE (REFRESH PLUS) TEARS 1 DROP EYE-BOTH ×4 (08:31→19:32)
--- NOTE | 2022-02-21 11:44 | PC.SPIRITC ---
I visited per Tran's request. Tran talked about her lamonte and wanting prayer for reassurance. I provided support, time for reflection, and prayer.
[2022-02-21] MEDS: SENNOSIDES 1 TAB TABLET PO (19:32)
[2022-02-21] MEDS: TRAZODONE HCL 50 MG TABLET 25 MG PO (19:32)
[2022-02-21] MEDS: OXYCODONE 5 MG TABLET PO (19:34)
[2022-02-21 20:40] VITALS: TEMP 37; O2SAT 97
[2022-02-21 23:00] VITALS: TEMP 37; O2SAT 92
--- NOTE | 2022-02-22 04:16 | PC.NURSE ---
WEEKLY CHARTING - WEEK 1: Vital signs reviewed. Temporary and comprehensive care plan reviewed - no change. Hx of chronic right shoulder pain. Receives acetaminophen TID and oxycodone PRN for pain management. PRN oxycodone has been utilized x15 in the last month. Is independent with dressing, grooming, and oral cares. Requires 1 staff to supervise and assist as needed with bathing. Regular diet. Eats independently after set-up. Diabetic friendly snacks offered TID.
[2022-02-22] MEDS: OMEPRAZOLE 20 MG CAPSULE DR PO (06:45)
[2022-02-22 07:00] VITALS: TEMP 37.1; O2SAT 93
[2022-02-22] MEDS: ACETAMINOPHEN 500 MG TABLET 1000 MG PO ×3 (08:40→19:04)
[2022-02-22] MEDS: ALBUTEROL INHALER 2 PUFF IH ×4 (08:41→19:04)
[2022-02-22] MEDS: FOLIC ACID 800 MCG 1 EACH PO (08:41)
[2022-02-22] MEDS: VENLAFAXINE HCL ER 37.5 MG CAPSULE PO (08:41)
[2022-02-22] MEDS: CARBOXYMETHYLCELLULOSE (REFRESH PLUS) TEARS 1 DROP EYE-BOTH ×4 (08:41→19:04)
[2022-02-22] MEDS: FUROSEMIDE 40 MG TABLET 60 MG PO (08:41)
[2022-02-22] MEDS: POTASSIUM CHLORIDE 10 MEQ CAPSULE ER PO (08:41)
[2022-02-22] MEDS: VENLAFAXINE ER 75 MG CAPSULE PO (08:41)
[2022-02-22] MEDS: METOPROLOL SUCCINATE (XL) 50 MG TAB 25 MG PO (08:41)
[2022-02-22] MEDS: METFORMIN 1,000 MG TABLET 1000 MG PO ×2 (08:41→17:26)
[2022-02-22] MEDS: ASPIRIN 81 MG TABLET EC PO (08:41)
[2022-02-22 11:10] LABS: SARS PCR* Negative SARS-CoV-2 (Negative)
--- NOTE | 2022-02-22 14:51 | PC.SPIRITC ---
I provided visit for support.
[2022-02-22 15:00] VITALS: TEMP 36.7; O2SAT 94
[2022-02-22] MEDS: NICOTINE 4 MG GUM BUCCAL (17:26)
[2022-02-22] MEDS: SENNOSIDES 1 TAB TABLET PO (19:04)
[2022-02-22] MEDS: TRAZODONE HCL 50 MG TABLET 25 MG PO (19:04)
[2022-02-22 23:00] VITALS: TEMP 36.8; O2SAT 92
[2022-02-23] MEDS: NICOTINE 4 MG GUM BUCCAL (06:50)
[2022-02-23] MEDS: OXYCODONE 5 MG TABLET PO (06:53)
[2022-02-23 07:00] VITALS: BP 132/63; PULSE 94; RESP 18; TEMP 36.3; O2SAT 95; BMI 19.9
[2022-02-23] MEDS: ALBUTEROL INHALER 2 PUFF IH ×4 (07:03→19:34)
[2022-02-23] MEDS: ASPIRIN 81 MG TABLET EC PO (07:03)
[2022-02-23] MEDS: OMEPRAZOLE 20 MG CAPSULE DR PO (07:03)
[2022-02-23] MEDS: ACETAMINOPHEN 500 MG TABLET 1000 MG PO ×3 (07:03→19:34)
[2022-02-23] MEDS: VENLAFAXINE ER 75 MG CAPSULE PO (07:03)
[2022-02-23] MEDS: FUROSEMIDE 40 MG TABLET 60 MG PO (07:04)
[2022-02-23] MEDS: POTASSIUM CHLORIDE 10 MEQ CAPSULE ER PO (07:04)
[2022-02-23] MEDS: METOPROLOL SUCCINATE (XL) 50 MG TAB 25 MG PO (07:04)
[2022-02-23] MEDS: VENLAFAXINE HCL ER 37.5 MG CAPSULE PO (07:04)
[2022-02-23] MEDS: FOLIC ACID 800 MCG 1 EACH PO (07:04)
[2022-02-23] MEDS: CARBOXYMETHYLCELLULOSE (REFRESH PLUS) TEARS 1 DROP EYE-BOTH ×4 (07:04→19:34)
[2022-02-23] MEDS: METFORMIN 1,000 MG TABLET 1000 MG PO ×2 (07:04→17:02)
--- NOTE | 2022-02-23 12:03 | PC.NURSE ---
Lab/Order: A1C result reviewed by TECHNICAL PROJECT LEAD. Order: Glipizide 2.5mg daily, Check A1C on 05/23/22. Discontinue Trazodone 25mg @ HS.
[2022-02-23 21:37] VITALS: TEMP 36.2; O2SAT 96
[2022-02-23 23:00] VITALS: TEMP 37.2; O2SAT 92
[2022-02-24] MEDS: OMEPRAZOLE 20 MG CAPSULE DR PO (06:41)
[2022-02-24] MEDS: ASPIRIN 81 MG TABLET EC PO (07:16)
[2022-02-24] MEDS: ACETAMINOPHEN 500 MG TABLET 1000 MG PO ×3 (07:16→20:11)
[2022-02-24] MEDS: ALBUTEROL INHALER 2 PUFF IH ×4 (07:16→20:11)
[2022-02-24] MEDS: VENLAFAXINE ER 75 MG CAPSULE PO (07:16)
[2022-02-24] MEDS: VENLAFAXINE HCL ER 37.5 MG CAPSULE PO (07:17)
[2022-02-24] MEDS: CARBOXYMETHYLCELLULOSE (REFRESH PLUS) TEARS 1 DROP EYE-BOTH ×4 (07:17→20:11)
[2022-02-24] MEDS: METOPROLOL SUCCINATE (XL) 50 MG TAB 25 MG PO (07:17)
[2022-02-24] MEDS: NICOTINE 4 MG GUM BUCCAL ×2 (07:25→17:17)
--- NOTE | 2022-02-24 07:36 | PC.NURSE ---
Admission day 5 Covid swab test done sent to lab. Will notify resident when result is back.
[2022-02-24 08:18] LABS: SARS PCR* Negative SARS-CoV-2 (Negative)
[2022-02-24] MEDS: METFORMIN 1,000 MG TABLET 1000 MG PO ×2 (08:25→17:17)
[2022-02-24] MEDS: glipiZIDE 2.5 MG ER TAB PO (08:25)
[2022-02-24] MEDS: FUROSEMIDE 40 MG TABLET 60 MG PO (08:25)
[2022-02-24] MEDS: POTASSIUM CHLORIDE 10 MEQ CAPSULE ER PO (08:25)
[2022-02-24 10:28] VITALS: TEMP 36.3; O2SAT 95
[2022-02-24] MEDS: SENNOSIDES 1 TAB TABLET PO (20:12)
[2022-02-24] MEDS: OXYCODONE 5 MG TABLET PO (20:12)
[2022-02-24 21:24] VITALS: TEMP 36.8; O2SAT 95
[2022-02-24 23:00] VITALS: TEMP 36.2; O2SAT 92
[2022-02-25] MEDS: OMEPRAZOLE 20 MG CAPSULE DR PO (06:49)
[2022-02-25] MEDS: ASPIRIN 81 MG TABLET EC PO (07:01)
[2022-02-25] MEDS: ACETAMINOPHEN 500 MG TABLET 1000 MG PO ×3 (07:01→19:33)
[2022-02-25] MEDS: ALBUTEROL INHALER 2 PUFF IH ×4 (07:01→19:37)
[2022-02-25] MEDS: VENLAFAXINE HCL ER 37.5 MG CAPSULE PO (07:02)
[2022-02-25] MEDS: VENLAFAXINE ER 75 MG CAPSULE PO (07:02)
[2022-02-25] MEDS: FOLIC ACID 800 MCG 1 EACH PO (07:06)
[2022-02-25] MEDS: METOPROLOL SUCCINATE (XL) 50 MG TAB 25 MG PO (07:06)
[2022-02-25] MEDS: CARBOXYMETHYLCELLULOSE (REFRESH PLUS) TEARS 1 DROP EYE-BOTH ×4 (07:06→19:37)
[2022-02-25] MEDS: glipiZIDE 2.5 MG ER TAB PO (08:10)
[2022-02-25] MEDS: POTASSIUM CHLORIDE 10 MEQ CAPSULE ER PO (08:10)
[2022-02-25] MEDS: METFORMIN 1,000 MG TABLET 1000 MG PO ×2 (08:10→17:14)
[2022-02-25] MEDS: FUROSEMIDE 40 MG TABLET 60 MG PO (08:10)
[2022-02-25] MEDS: NICOTINE 4 MG GUM BUCCAL ×2 (08:11→17:14)
[2022-02-25 09:47] VITALS: TEMP 36.6; O2SAT 95
[2022-02-25] MEDS: OXYCODONE 5 MG TABLET PO (19:32)
[2022-02-25] MEDS: SENNOSIDES 1 TAB TABLET PO (19:37)
[2022-02-25 20:53] VITALS: TEMP 36.4; O2SAT 97
[2022-02-25 23:00] VITALS: TEMP 36.9; O2SAT 96
[2022-02-26] MEDS: ALBUTEROL INHALER 2 PUFF IH ×4 (07:09→19:46)
[2022-02-26] MEDS: ACETAMINOPHEN 500 MG TABLET 1000 MG PO ×3 (07:09→19:46)
[2022-02-26] MEDS: OMEPRAZOLE 20 MG CAPSULE DR PO (07:09)
[2022-02-26] MEDS: ASPIRIN 81 MG TABLET EC PO (07:09)
[2022-02-26] MEDS: VENLAFAXINE ER 75 MG CAPSULE PO (07:10)
[2022-02-26] MEDS: VENLAFAXINE HCL ER 37.5 MG CAPSULE PO (07:10)
[2022-02-26] MEDS: FOLIC ACID 800 MCG 1 EACH PO (07:10)
[2022-02-26] MEDS: CARBOXYMETHYLCELLULOSE (REFRESH PLUS) TEARS 1 DROP EYE-BOTH ×4 (07:10→19:46)
[2022-02-26] MEDS: glipiZIDE 2.5 MG ER TAB PO (07:10)
[2022-02-26] MEDS: METOPROLOL SUCCINATE (XL) 50 MG TAB 25 MG PO (07:10)
[2022-02-26] MEDS: NICOTINE 4 MG GUM BUCCAL ×2 (07:11→16:59)
[2022-02-26] MEDS: POTASSIUM CHLORIDE 10 MEQ CAPSULE ER PO (08:14)
[2022-02-26] MEDS: FUROSEMIDE 40 MG TABLET 60 MG PO (08:14)
[2022-02-26] MEDS: METFORMIN 1,000 MG TABLET 1000 MG PO ×2 (08:14→16:59)
[2022-02-26 09:49] VITALS: TEMP 36.4; O2SAT 92
[2022-02-26] MEDS: LOPERAMIDE HCL 2 MG CAPSULE PO (10:30)
--- NOTE | 2022-02-26 10:48 | PC.NURSE ---
Loose Stool : Resident has 3 episode of loose stool this morning. Resident informed that it is normal for her to have loose daily but not 3 times a day. Vital are as follows. T 97.2, pulse 89, B/P 115/63 and O2 93% ( RA) . Resident is slightly lethargic. Bowel sound normal in all 4 quadrants. Given 2mg of Loperamide at 1010. No any episode of nausea or vomiting.
--- NOTE | 2022-02-26 11:08 | PC.NURSE ---
Testing Norovirus : Call [employer] marketing communications coordinatorpersonal injury law specialist Kelsie and she gave permission to test for Norovirus under Buffy Briones. Stool collection container given to resident to collect specimen.
--- NOTE | 2022-02-26 11:29 | PC.NURSE ---
Covid test : Resident was also tested for covid and nasal speciment sent to lab at 1130am .
[2022-02-26 12:06] LABS: PCR FLU A Negative PCR FLU A (Negative); PCR FLU B Negative PCR FLU B (Negative); PCR RSV Negative PCR RSV (Negative)
[2022-02-26 12:32] LABS: SARS PCR* Negative SARS-CoV-2 (Negative)
--- NOTE | 2022-02-26 13:04 | NUTR.NU ---
Lab Results : Received order for Anselmo for lab and resident was tested for SARS, Influenza A & B and RSV which was send at 1130. Results came back as negative for all. Resident did not have any more episode of loose stool since 9am this morning . Appetite good and resting . Maintain room isolation and continue monitoring . Awaiting to take stool sample for Norovirus.
[2022-02-26] MEDS: OXYCODONE 5 MG TABLET PO (19:47)
[2022-02-26 21:12] VITALS: TEMP 36.5; O2SAT 93
--- NOTE | 2022-02-26 21:18 | PC.NURSE ---
Status: Resident has no loose stools or emesis on the PM shift. Clerical Transcriber is unable to obtain a stool sample. When asked resident states that she does not feel sick. Resident does ask for a pain pill for right shoulder pain and is given an Oxycodone 5mg PRN at 1947 with relief.
[2022-02-26 23:00] VITALS: TEMP 36; O2SAT 92
[2022-02-27] MEDS: OMEPRAZOLE 20 MG CAPSULE DR PO (06:50)
[2022-02-27] MEDS: FUROSEMIDE 40 MG TABLET 60 MG PO (07:52)
[2022-02-27] MEDS: ALBUTEROL INHALER 2 PUFF IH ×4 (07:52→19:46)
[2022-02-27] MEDS: ACETAMINOPHEN 500 MG TABLET 1000 MG PO ×3 (07:52→19:46)
[2022-02-27] MEDS: glipiZIDE 2.5 MG ER TAB PO (07:52)
[2022-02-27] MEDS: METFORMIN 1,000 MG TABLET 1000 MG PO ×2 (07:52→17:08)
[2022-02-27] MEDS: ASPIRIN 81 MG TABLET EC PO (07:52)
[2022-02-27] MEDS: METOPROLOL SUCCINATE (XL) 50 MG TAB 25 MG PO (07:52)
[2022-02-27] MEDS: VENLAFAXINE HCL ER 37.5 MG CAPSULE PO (07:52)
[2022-02-27] MEDS: VENLAFAXINE ER 75 MG CAPSULE PO (07:52)
[2022-02-27] MEDS: FOLIC ACID 800 MCG 1 EACH PO (07:59)
[2022-02-27] MEDS: CARBOXYMETHYLCELLULOSE (REFRESH PLUS) TEARS 1 DROP EYE-BOTH ×4 (08:00→19:47)
[2022-02-27] MEDS: POTASSIUM CHLORIDE 10 MEQ CAPSULE ER PO (08:00)
[2022-02-27 14:39] VITALS: TEMP 36.8; O2SAT 92
[2022-02-27 15:00] VITALS: TEMP 36.8; O2SAT 95
--- NOTE | 2022-02-27 15:04 | PC.NURSE ---
GI symptoms: Resident had a large loose stool last evening. Collected stool sample which was soft and formed. She slept soundly all morning and at lunch was feeling sleepy and weak.
[2022-02-27] MEDS: NICOTINE 4 MG GUM BUCCAL (17:09)
[2022-02-27] MEDS: SENNOSIDES 1 TAB TABLET PO (19:47)
[2022-02-27 22:01] LABS: SARS PCR* Negative SARS-CoV-2 (Negative)
[2022-02-27 23:00] VITALS: TEMP 36.4; O2SAT 91
[2022-02-28] MEDS: OMEPRAZOLE 20 MG CAPSULE DR PO (06:42)
--- NOTE | 2022-02-28 06:48 | PC.NURSE ---
Resident did not have loose stool or emesis overnight. will continue to monitor.
[2022-02-28 07:00] VITALS: TEMP 36.3; O2SAT 97
[2022-02-28] MEDS: ACETAMINOPHEN 500 MG TABLET 1000 MG PO ×3 (09:02→19:52)
[2022-02-28] MEDS: ALBUTEROL INHALER 2 PUFF IH ×4 (09:03→19:52)
[2022-02-28] MEDS: VENLAFAXINE ER 75 MG CAPSULE PO (09:03)
[2022-02-28] MEDS: VENLAFAXINE HCL ER 37.5 MG CAPSULE PO (09:03)
[2022-02-28] MEDS: glipiZIDE 2.5 MG ER TAB PO (09:03)
[2022-02-28] MEDS: ASPIRIN 81 MG TABLET EC PO (09:03)
[2022-02-28] MEDS: FUROSEMIDE 40 MG TABLET 60 MG PO (09:04)
[2022-02-28] MEDS: POTASSIUM CHLORIDE 10 MEQ CAPSULE ER PO (09:04)
[2022-02-28] MEDS: METOPROLOL SUCCINATE (XL) 50 MG TAB 25 MG PO (09:04)
[2022-02-28] MEDS: FOLIC ACID 800 MCG 1 EACH PO (09:04)
[2022-02-28] MEDS: METFORMIN 1,000 MG TABLET 1000 MG PO ×2 (09:04→19:18)
[2022-02-28] MEDS: CARBOXYMETHYLCELLULOSE (REFRESH PLUS) TEARS 1 DROP EYE-BOTH ×4 (09:04→19:52)
[2022-02-28] MEDS: SENNOSIDES 1 TAB TABLET PO (19:52)
[2022-02-28 21:47] VITALS: TEMP 36.6; O2SAT 93
[2022-02-28 23:00] VITALS: TEMP 36.6; O2SAT 92
--- NOTE | 2022-03-01 03:26 | PC.NURSE ---
WEEKLY CHARTING - WEEK 2: Vital signs reviewed. Temporary and comprehensive care plan reviewed - no change. Is independent with transfers, ambulation with 4WW, and bed mobility. Left quarter side rail in place to assist with positioning. Per fall risk assessment, is at low risk for falls. Fall interventions in place include call light in reach, bed in low position, walker at bedside.
[2022-03-01] MEDS: ASPIRIN 81 MG TABLET EC PO (07:06)
[2022-03-01] MEDS: VENLAFAXINE ER 75 MG CAPSULE PO (07:06)
[2022-03-01] MEDS: OMEPRAZOLE 20 MG CAPSULE DR PO (07:06)
[2022-03-01] MEDS: ACETAMINOPHEN 500 MG TABLET 1000 MG PO ×3 (07:06→19:29)
[2022-03-01] MEDS: ALBUTEROL INHALER 2 PUFF IH ×4 (07:06→19:29)
[2022-03-01] MEDS: METOPROLOL SUCCINATE (XL) 50 MG TAB 25 MG PO (07:06)
[2022-03-01] MEDS: FOLIC ACID 800 MCG 1 EACH PO (07:06)
[2022-03-01] MEDS: VENLAFAXINE HCL ER 37.5 MG CAPSULE PO (07:07)
[2022-03-01] MEDS: CARBOXYMETHYLCELLULOSE (REFRESH PLUS) TEARS 1 DROP EYE-BOTH ×4 (07:07→19:29)
[2022-03-01] MEDS: NICOTINE 4 MG GUM BUCCAL ×2 (07:11→17:04)
[2022-03-01] MEDS: glipiZIDE 2.5 MG ER TAB PO (08:32)
[2022-03-01] MEDS: METFORMIN 1,000 MG TABLET 1000 MG PO ×2 (08:32→17:02)
[2022-03-01] MEDS: FUROSEMIDE 40 MG TABLET 60 MG PO (08:32)
[2022-03-01] MEDS: POTASSIUM CHLORIDE 10 MEQ CAPSULE ER PO (08:32)
[2022-03-01 10:20] VITALS: TEMP 36.7; O2SAT 93
[2022-03-01 15:00] VITALS: TEMP 36.6; O2SAT 95
[2022-03-01] MEDS: SENNOSIDES 1 TAB TABLET PO (19:29)
[2022-03-01 23:00] VITALS: TEMP 36.4; O2SAT 91
[2022-03-02] MEDS: OMEPRAZOLE 20 MG CAPSULE DR PO (06:48)
[2022-03-02 07:00] VITALS: BP 113/58; PULSE 98; RESP 24; TEMP 36.2; TEMP 36.3; O2SAT 94
[2022-03-02] MEDS: ACETAMINOPHEN 500 MG TABLET 1000 MG PO ×3 (08:16→19:40)
[2022-03-02] MEDS: ASPIRIN 81 MG TABLET EC PO (08:16)
[2022-03-02] MEDS: ALBUTEROL INHALER 2 PUFF IH ×4 (08:16→19:40)
[2022-03-02] MEDS: VENLAFAXINE HCL ER 37.5 MG CAPSULE PO (08:16)
[2022-03-02] MEDS: VENLAFAXINE ER 75 MG CAPSULE PO (08:16)
[2022-03-02] MEDS: FUROSEMIDE 40 MG TABLET 60 MG PO (08:17)
[2022-03-02] MEDS: METOPROLOL SUCCINATE (XL) 50 MG TAB 25 MG PO (08:17)
[2022-03-02] MEDS: FOLIC ACID 800 MCG 1 EACH PO (08:17)
[2022-03-02] MEDS: POTASSIUM CHLORIDE 10 MEQ CAPSULE ER PO (08:17)
[2022-03-02] MEDS: glipiZIDE 2.5 MG ER TAB PO (08:17)
[2022-03-02] MEDS: METFORMIN 1,000 MG TABLET 1000 MG PO ×2 (08:17→17:10)
[2022-03-02] MEDS: CARBOXYMETHYLCELLULOSE (REFRESH PLUS) TEARS 1 DROP EYE-BOTH ×4 (08:17→19:40)
[2022-03-02] MEDS: NICOTINE 4 MG GUM BUCCAL (17:10)
[2022-03-02] MEDS: OXYCODONE 5 MG TABLET PO (19:39)
[2022-03-02] MEDS: SENNOSIDES 1 TAB TABLET PO (19:40)
[2022-03-02 21:28] VITALS: TEMP 36.6; O2SAT 93
[2022-03-02 23:00] VITALS: TEMP 36.4; O2SAT 94
[2022-03-03] MEDS: OMEPRAZOLE 20 MG CAPSULE DR PO (06:54)
[2022-03-03] MEDS: ASPIRIN 81 MG TABLET EC PO (07:18)
[2022-03-03] MEDS: METOPROLOL SUCCINATE (XL) 50 MG TAB 25 MG PO (07:18)
[2022-03-03] MEDS: VENLAFAXINE HCL ER 37.5 MG CAPSULE PO (07:18)
[2022-03-03] MEDS: VENLAFAXINE ER 75 MG CAPSULE PO (07:18)
[2022-03-03] MEDS: ACETAMINOPHEN 500 MG TABLET 1000 MG PO ×3 (07:18→19:30)
[2022-03-03] MEDS: ALBUTEROL INHALER 2 PUFF IH ×4 (07:18→19:29)
[2022-03-03] MEDS: NON-FORMULARY MEDICATION 1 EACH INH (07:19)
[2022-03-03] MEDS: CARBOXYMETHYLCELLULOSE (REFRESH PLUS) TEARS 1 DROP EYE-BOTH ×4 (07:19→19:29)
[2022-03-03] MEDS: glipiZIDE 2.5 MG ER TAB PO (07:19)
[2022-03-03] MEDS: NICOTINE 4 MG GUM BUCCAL (07:30)
[2022-03-03] MEDS: POTASSIUM CHLORIDE 10 MEQ CAPSULE ER PO (08:15)
[2022-03-03] MEDS: FUROSEMIDE 40 MG TABLET 60 MG PO (08:15)
[2022-03-03] MEDS: METFORMIN 1,000 MG TABLET 1000 MG PO ×2 (08:15→17:23)
[2022-03-03 10:35] VITALS: TEMP 36.4; O2SAT 94
[2022-03-03 16:54] VITALS: TEMP 36.6; O2SAT 95
[2022-03-03] MEDS: SENNOSIDES 1 TAB TABLET PO (19:30)
[2022-03-03 23:00] VITALS: TEMP 36.3; O2SAT 92
[2022-03-04] MEDS: OMEPRAZOLE 20 MG CAPSULE DR PO (06:31)
[2022-03-04 07:00] VITALS: TEMP 36.4; O2SAT 95
[2022-03-04] MEDS: NICOTINE 4 MG GUM BUCCAL (08:30)
[2022-03-04] MEDS: VENLAFAXINE ER 75 MG CAPSULE PO (08:46)
[2022-03-04] MEDS: ACETAMINOPHEN 500 MG TABLET 1000 MG PO ×3 (08:46→19:58)
[2022-03-04] MEDS: FUROSEMIDE 40 MG TABLET 60 MG PO (08:46)
[2022-03-04] MEDS: METFORMIN 1,000 MG TABLET 1000 MG PO ×2 (08:46→19:57)
[2022-03-04] MEDS: ASPIRIN 81 MG TABLET EC PO (08:46)
[2022-03-04] MEDS: glipiZIDE 2.5 MG ER TAB PO (08:46)
[2022-03-04] MEDS: VENLAFAXINE HCL ER 37.5 MG CAPSULE PO (08:46)
[2022-03-04] MEDS: METOPROLOL SUCCINATE (XL) 50 MG TAB 25 MG PO (08:46)
[2022-03-04] MEDS: ALBUTEROL INHALER 2 PUFF IH ×4 (08:46→19:58)
[2022-03-04] MEDS: POTASSIUM CHLORIDE 10 MEQ CAPSULE ER PO (08:56)
[2022-03-04] MEDS: NON-FORMULARY MEDICATION 1 EACH INH (08:56)
[2022-03-04] MEDS: NON-FORMULARY MEDICATION 1 EACH PO (08:56)
[2022-03-04] MEDS: CARBOXYMETHYLCELLULOSE (REFRESH PLUS) TEARS 1 DROP EYE-BOTH ×4 (08:56→19:58)
--- NOTE | 2022-03-04 13:29 | PC.SPIRITC ---
Investigation Division Sergeant provided supportive visit including life and legacy review, grief and loss support and prayer.
[2022-03-04 16:54] VITALS: TEMP 36.2; O2SAT 93
[2022-03-04] MEDS: SENNOSIDES 1 TAB TABLET PO (19:58)
[2022-03-04 23:00] VITALS: TEMP 36.6; O2SAT 91
[2022-03-05] MEDS: OMEPRAZOLE 20 MG CAPSULE DR PO (06:24)
[2022-03-05 07:00] VITALS: TEMP 36.8; O2SAT 95
[2022-03-05] MEDS: NICOTINE 4 MG GUM BUCCAL (08:30)
[2022-03-05] MEDS: VENLAFAXINE ER 75 MG CAPSULE PO (08:48)
[2022-03-05] MEDS: FUROSEMIDE 40 MG TABLET 60 MG PO (08:48)
[2022-03-05] MEDS: ACETAMINOPHEN 500 MG TABLET 1000 MG PO ×3 (08:48→19:17)
[2022-03-05] MEDS: glipiZIDE 2.5 MG ER TAB PO (08:48)
[2022-03-05] MEDS: ALBUTEROL INHALER 2 PUFF IH ×4 (08:48→19:17)
[2022-03-05] MEDS: METFORMIN 1,000 MG TABLET 1000 MG PO ×2 (08:48→18:54)
[2022-03-05] MEDS: ASPIRIN 81 MG TABLET EC PO (08:48)
[2022-03-05] MEDS: VENLAFAXINE HCL ER 37.5 MG CAPSULE PO (08:48)
[2022-03-05] MEDS: NON-FORMULARY MEDICATION 1 EACH PO (08:49)
[2022-03-05] MEDS: POTASSIUM CHLORIDE 10 MEQ CAPSULE ER PO (08:49)
[2022-03-05] MEDS: CARBOXYMETHYLCELLULOSE (REFRESH PLUS) TEARS 1 DROP EYE-BOTH ×4 (08:49→19:17)
[2022-03-05] MEDS: METOPROLOL SUCCINATE (XL) 50 MG TAB 25 MG PO (08:49)
[2022-03-05] MEDS: NON-FORMULARY MEDICATION 1 EACH INH (08:49)
[2022-03-05 17:01] VITALS: TEMP 36.9; O2SAT 93
[2022-03-05] MEDS: SENNOSIDES 1 TAB TABLET PO (19:17)
[2022-03-05 23:00] VITALS: TEMP 36.7; O2SAT 93
[2022-03-06] MEDS: OMEPRAZOLE 20 MG CAPSULE DR PO (06:18)
[2022-03-06 07:00] VITALS: TEMP 37.3; O2SAT 94
[2022-03-06] MEDS: NICOTINE 4 MG GUM BUCCAL ×2 (08:30→17:12)
[2022-03-06] MEDS: FUROSEMIDE 40 MG TABLET 60 MG PO (08:36)
[2022-03-06] MEDS: ASPIRIN 81 MG TABLET EC PO (08:36)
[2022-03-06] MEDS: NON-FORMULARY MEDICATION 1 EACH PO (08:36)
[2022-03-06] MEDS: ACETAMINOPHEN 500 MG TABLET 1000 MG PO ×3 (08:36→19:29)
[2022-03-06] MEDS: VENLAFAXINE HCL ER 37.5 MG CAPSULE PO (08:36)
[2022-03-06] MEDS: METOPROLOL SUCCINATE (XL) 50 MG TAB 25 MG PO (08:36)
[2022-03-06] MEDS: POTASSIUM CHLORIDE 10 MEQ CAPSULE ER PO (08:36)
[2022-03-06] MEDS: VENLAFAXINE ER 75 MG CAPSULE PO (08:36)
[2022-03-06] MEDS: glipiZIDE 2.5 MG ER TAB PO (08:36)
[2022-03-06] MEDS: ALBUTEROL INHALER 2 PUFF IH ×4 (08:36→19:29)
[2022-03-06] MEDS: NON-FORMULARY MEDICATION 1 EACH INH (08:36)
[2022-03-06] MEDS: CARBOXYMETHYLCELLULOSE (REFRESH PLUS) TEARS 1 DROP EYE-BOTH ×4 (08:36→19:29)
[2022-03-06] MEDS: METFORMIN 1,000 MG TABLET 1000 MG PO ×2 (08:36→17:11)
--- NOTE | 2022-03-06 11:50 | PC.NURSE ---
COVID OUTBREAK TESTING: Resident provided verbal consent for outbreak COVID testing. Resident is currently asymptomatic. Resident/family will be notified only if resident is positive.
[2022-03-06 14:41] LABS: SARS PCR* Negative SARS-CoV-2 (Negative)
[2022-03-06 15:00] VITALS: TEMP 36.5; O2SAT 94
[2022-03-06] MEDS: SENNOSIDES 1 TAB TABLET PO (19:29)
[2022-03-06 23:00] VITALS: TEMP 36.6; O2SAT 92
[2022-03-07] MEDS: OMEPRAZOLE 20 MG CAPSULE DR PO (06:38)
[2022-03-07 07:00] VITALS: TEMP 36.9; O2SAT 95
[2022-03-07] MEDS: METFORMIN 1,000 MG TABLET 1000 MG PO ×2 (08:30→20:06)
[2022-03-07] MEDS: ACETAMINOPHEN 500 MG TABLET 1000 MG PO ×3 (08:30→20:06)
[2022-03-07] MEDS: VENLAFAXINE ER 75 MG CAPSULE PO (08:30)
[2022-03-07] MEDS: glipiZIDE 2.5 MG ER TAB PO (08:30)
[2022-03-07] MEDS: NICOTINE 4 MG GUM BUCCAL (08:30)
[2022-03-07] MEDS: VENLAFAXINE HCL ER 37.5 MG CAPSULE PO (08:30)
[2022-03-07] MEDS: METOPROLOL SUCCINATE (XL) 50 MG TAB 25 MG PO (08:30)
[2022-03-07] MEDS: ALBUTEROL INHALER 2 PUFF IH ×4 (08:30→20:06)
[2022-03-07] MEDS: ASPIRIN 81 MG TABLET EC PO (08:30)
[2022-03-07] MEDS: FUROSEMIDE 40 MG TABLET 60 MG PO (08:30)
[2022-03-07] MEDS: POTASSIUM CHLORIDE 10 MEQ CAPSULE ER PO (08:31)
[2022-03-07] MEDS: NON-FORMULARY MEDICATION 1 EACH PO (08:31)
[2022-03-07] MEDS: CARBOXYMETHYLCELLULOSE (REFRESH PLUS) TEARS 1 DROP EYE-BOTH ×4 (08:31→20:06)
[2022-03-07] MEDS: NON-FORMULARY MEDICATION 1 EACH INH (08:31)
[2022-03-07 17:07] VITALS: TEMP 37.2; O2SAT 95
[2022-03-07] MEDS: SENNOSIDES 1 TAB TABLET PO (20:06)
[2022-03-07] MEDS: OXYCODONE 5 MG TABLET PO (20:07)
[2022-03-07 23:00] VITALS: TEMP 37.2; O2SAT 93
--- NOTE | 2022-03-08 02:45 | PC.NURSE ---
WEEKLY CHARTING - WEEK 3: Vital signs reviewed. Temporary and comprehensive care plan reviewed - no change. No documented skin concerns at this time. Generally continent of bowel and bladder with occasional stress/urge incontinence. Wears pull-up. Staff to supply in bathroom. Is independent with toileting needs including pad/clothing management and bryanna-cares. Is able to use call light appropriately for assistance as needed.
[2022-03-08] MEDS: OMEPRAZOLE 20 MG CAPSULE DR PO (06:33)
--- NOTE | 2022-03-08 06:53 | PC.NURSE ---
Week #3-Toileting: Comprehensive care plan reviewed, no changes made. Nothing added to temporary care plan. Resident is generally continent of bowel and bladder. Is independent with all toileting needs including pads, bryanna cares, & clothing. Will ask for assist as needed. Vital signs reviewed, no concerns. Skin: Continues on Miconazole cream to (R) great toe redness. Skin improving. No other skin issues noted. Resident is able to tell with concerns. Skin is checked routinely on bath day.
[2022-03-08 07:00] VITALS: TEMP 37.4; O2SAT 95
[2022-03-08] MEDS: glipiZIDE 2.5 MG ER TAB PO (08:49)
[2022-03-08] MEDS: METOPROLOL SUCCINATE (XL) 50 MG TAB 25 MG PO (08:49)
[2022-03-08] MEDS: VENLAFAXINE HCL ER 37.5 MG CAPSULE PO (08:49)
[2022-03-08] MEDS: ALBUTEROL INHALER 2 PUFF IH ×4 (08:49→19:24)
[2022-03-08] MEDS: POTASSIUM CHLORIDE 10 MEQ CAPSULE ER PO (08:49)
[2022-03-08] MEDS: NON-FORMULARY MEDICATION 1 EACH PO (08:49)
[2022-03-08] MEDS: ASPIRIN 81 MG TABLET EC PO (08:49)
[2022-03-08] MEDS: METFORMIN 1,000 MG TABLET 1000 MG PO ×2 (08:49→17:25)
[2022-03-08] MEDS: FUROSEMIDE 40 MG TABLET 60 MG PO (08:49)
[2022-03-08] MEDS: NON-FORMULARY MEDICATION 1 EACH INH (08:49)
[2022-03-08] MEDS: CARBOXYMETHYLCELLULOSE (REFRESH PLUS) TEARS 1 DROP EYE-BOTH ×4 (08:49→19:24)
[2022-03-08] MEDS: VENLAFAXINE ER 75 MG CAPSULE PO (08:49)
[2022-03-08] MEDS: ACETAMINOPHEN 500 MG TABLET 1000 MG PO ×3 (08:49→19:21)
[2022-03-08] MEDS: NICOTINE 4 MG GUM BUCCAL ×2 (13:33→17:26)
[2022-03-08 14:52] VITALS: BMI 20.9
[2022-03-08 15:00] VITALS: TEMP 37.3; O2SAT 96
--- NOTE | 2022-03-08 15:18 | PC.PHA ---
MEDICATION REVIEW MEDICATION MONITORING:venlafaxine 112.5 mg daily for generalized anxiaty and major depression IRREGULARITY/COMMENTS:Patient did have trazodone stopped early February 2022 and continues on medications to manage blood sugars, rheumatoid arthritis, pain and COPD. No GDR recommended for venlafaxine as patient just had trazodone stopped and she is active and content. SUGGESTED COURSE OF ACTION:No pharmacy recommendations for February
[2022-03-08] MEDS: SENNOSIDES 1 TAB TABLET PO (19:25)
[2022-03-08] MEDS: OXYCODONE 5 MG TABLET PO (21:22)
[2022-03-08 23:00] VITALS: TEMP 36.8; O2SAT 93
[2022-03-09] MEDS: ACETAMINOPHEN 500 MG TABLET 1000 MG PO ×3 (07:00→19:34)
[2022-03-09] MEDS: OMEPRAZOLE 20 MG CAPSULE DR PO (07:00)
[2022-03-09] MEDS: VENLAFAXINE HCL ER 37.5 MG CAPSULE PO (07:01)
[2022-03-09] MEDS: ALBUTEROL INHALER 2 PUFF IH ×4 (07:01→19:34)
[2022-03-09] MEDS: VENLAFAXINE ER 75 MG CAPSULE PO (07:01)
[2022-03-09] MEDS: METOPROLOL SUCCINATE (XL) 50 MG TAB 25 MG PO (07:01)
[2022-03-09] MEDS: ASPIRIN 81 MG TABLET EC PO (07:01)
[2022-03-09] MEDS: NON-FORMULARY MEDICATION 1 EACH PO (07:02)
[2022-03-09] MEDS: NON-FORMULARY MEDICATION 1 EACH INH (07:03)
[2022-03-09] MEDS: CARBOXYMETHYLCELLULOSE (REFRESH PLUS) TEARS 1 DROP EYE-BOTH ×4 (07:03→19:34)
[2022-03-09] MEDS: NICOTINE 4 MG GUM BUCCAL (07:30)
[2022-03-09] MEDS: glipiZIDE 2.5 MG ER TAB PO (08:18)
[2022-03-09] MEDS: POTASSIUM CHLORIDE 10 MEQ CAPSULE ER PO (08:18)
[2022-03-09] MEDS: METFORMIN 1,000 MG TABLET 1000 MG PO ×2 (08:18→19:34)
[2022-03-09] MEDS: FUROSEMIDE 40 MG TABLET 60 MG PO (08:18)
[2022-03-09 10:23] VITALS: BP 136/69; PULSE 86; RESP 20; TEMP 36.3; O2SAT 96; BMI 20.1
[2022-03-09] MEDS: OXYCODONE 5 MG TABLET PO (12:15)
[2022-03-09 16:43] VITALS: TEMP 37.1; O2SAT 95
--- NOTE | 2022-03-09 17:19 | PC.NURSE ---
TEO: Tran let this nurse know that she will be going out this weekend with her family. She will leave Sunday morning around 1030 and return on Sunday afternoon. She will need her medications sent with including her narcotic. She would like to take a portable oxygen tank with in case she gets very SOB.
[2022-03-09] MEDS: SENNOSIDES 1 TAB TABLET PO (19:34)
[2022-03-09 23:00] VITALS: TEMP 36.6; O2SAT 92
[2022-03-10] MEDS: OMEPRAZOLE 20 MG CAPSULE DR PO (06:47)
[2022-03-10] MEDS: ACETAMINOPHEN 500 MG TABLET 1000 MG PO (07:15)
[2022-03-10] MEDS: ASPIRIN 81 MG TABLET EC PO (07:15)
[2022-03-10] MEDS: ALBUTEROL INHALER 2 PUFF IH (07:15)
[2022-03-10] MEDS: VENLAFAXINE ER 75 MG CAPSULE PO (07:16)
[2022-03-10] MEDS: CARBOXYMETHYLCELLULOSE (REFRESH PLUS) TEARS 1 DROP EYE-BOTH (07:16)
[2022-03-10] MEDS: NON-FORMULARY MEDICATION 1 EACH INH (07:16)
[2022-03-10] MEDS: VENLAFAXINE HCL ER 37.5 MG CAPSULE PO (07:16)
[2022-03-10] MEDS: METOPROLOL SUCCINATE (XL) 50 MG TAB 25 MG PO (07:16)
[2022-03-10] MEDS: NICOTINE 4 MG GUM BUCCAL (07:25)
[2022-03-10] MEDS: POTASSIUM CHLORIDE 10 MEQ CAPSULE ER PO (08:12)
[2022-03-10] MEDS: glipiZIDE 2.5 MG ER TAB PO (08:12)
[2022-03-10] MEDS: METFORMIN 1,000 MG TABLET 1000 MG PO (08:12)
[2022-03-10] MEDS: HYDROCORTISONE 1 % CREAM 1 APPLIC TOPICAL (09:09)
[2022-03-10 10:10] VITALS: TEMP 36.6; O2SAT 92
--- NOTE | 2022-03-10 10:11 | PC.NURSE ---
Leave of Absence - Resident left facility at 1000 with her son. She was sent will all her scheduled medications including PRN Oxycodone (5 tab) , tab Imodium and Nicotine gum. She plans to return on Sunday.
--- NOTE | 2022-03-12 12:23 | PC.NURSE ---
Return: Back from TEO ambulatory with a walker. All meds, #3 Oxycodone returned.
--- NOTE | 2022-03-12 12:39 | PC.NURSE ---
Admit day 1 Covid swab done and sent to lab.
[2022-03-12 14:46] LABS: SARS PCR* Negative SARS-CoV-2 (Negative)
[2022-03-12] MEDS: ALBUTEROL INHALER 2 PUFF IH ×2 (15:43→19:29)
[2022-03-12] MEDS: CARBOXYMETHYLCELLULOSE (REFRESH PLUS) TEARS 1 DROP EYE-BOTH ×2 (15:43→19:29)
[2022-03-12 16:51] VITALS: TEMP 36.8; O2SAT 94
[2022-03-12] MEDS: METFORMIN 1,000 MG TABLET 1000 MG PO (17:15)
[2022-03-12] MEDS: NICOTINE 4 MG GUM BUCCAL (17:18)
[2022-03-12] MEDS: OXYCODONE 5 MG TABLET PO (18:43)
[2022-03-12] MEDS: ACETAMINOPHEN 500 MG TABLET 1000 MG PO (19:29)
[2022-03-12] MEDS: SENNOSIDES 1 TAB TABLET PO (19:29)
[2022-03-12 23:00] VITALS: TEMP 36.4; O2SAT 93
[2022-03-13] MEDS: NICOTINE 4 MG GUM BUCCAL ×2 (07:20→17:14)
[2022-03-13] MEDS: ACETAMINOPHEN 500 MG TABLET 1000 MG PO ×3 (07:22→19:21)
[2022-03-13] MEDS: OMEPRAZOLE 20 MG CAPSULE DR PO (07:22)
[2022-03-13] MEDS: ALBUTEROL INHALER 2 PUFF IH ×4 (07:22→19:21)
[2022-03-13] MEDS: ASPIRIN 81 MG TABLET EC PO (07:22)
[2022-03-13] MEDS: METOPROLOL SUCCINATE (XL) 50 MG TAB 25 MG PO (07:24)
[2022-03-13] MEDS: NON-FORMULARY MEDICATION 1 EACH PO (07:24)
[2022-03-13] MEDS: VENLAFAXINE HCL ER 37.5 MG CAPSULE PO (07:24)
[2022-03-13] MEDS: NON-FORMULARY MEDICATION 1 EACH INH (07:24)
[2022-03-13] MEDS: VENLAFAXINE ER 75 MG CAPSULE PO (07:24)
[2022-03-13] MEDS: glipiZIDE 2.5 MG ER TAB PO (07:25)
[2022-03-13] MEDS: CARBOXYMETHYLCELLULOSE (REFRESH PLUS) TEARS 1 DROP EYE-BOTH ×4 (07:25→19:21)
[2022-03-13] MEDS: POTASSIUM CHLORIDE 10 MEQ CAPSULE ER PO (07:25)
[2022-03-13] MEDS: METFORMIN 1,000 MG TABLET 1000 MG PO ×2 (08:19→17:14)
[2022-03-13] MEDS: FUROSEMIDE 40 MG TABLET 60 MG PO (08:19)
[2022-03-13 10:20] VITALS: TEMP 36.6; O2SAT 93
[2022-03-13 15:00] VITALS: TEMP 36.6; O2SAT 95
[2022-03-13] MEDS: SENNOSIDES 1 TAB TABLET PO (19:21)
[2022-03-13 23:00] VITALS: TEMP 36.2; O2SAT 93
[2022-03-14] MEDS: OMEPRAZOLE 20 MG CAPSULE DR PO (06:42)
[2022-03-14 07:00] VITALS: TEMP 37.4; O2SAT 96
--- NOTE | 2022-03-14 07:06 | PC.NURSE ---
Admit Covid Day 3 swab test done and sent to lab.
[2022-03-14 07:45] LABS: SARS PCR* Negative SARS-CoV-2 (Negative)
[2022-03-14] MEDS: FUROSEMIDE 40 MG TABLET 60 MG PO (08:30)
[2022-03-14] MEDS: NON-FORMULARY MEDICATION 1 EACH INH (08:30)
[2022-03-14] MEDS: VENLAFAXINE HCL ER 37.5 MG CAPSULE PO (08:30)
[2022-03-14] MEDS: POTASSIUM CHLORIDE 10 MEQ CAPSULE ER PO (08:30)
[2022-03-14] MEDS: ALBUTEROL INHALER 2 PUFF IH ×4 (08:30→19:49)
[2022-03-14] MEDS: METFORMIN 1,000 MG TABLET 1000 MG PO ×2 (08:30→19:48)
[2022-03-14] MEDS: ACETAMINOPHEN 500 MG TABLET 1000 MG PO ×3 (08:30→19:49)
[2022-03-14] MEDS: glipiZIDE 2.5 MG ER TAB PO (08:30)
[2022-03-14] MEDS: ASPIRIN 81 MG TABLET EC PO (08:30)
[2022-03-14] MEDS: VENLAFAXINE ER 75 MG CAPSULE PO (08:30)
[2022-03-14] MEDS: NON-FORMULARY MEDICATION 1 EACH PO (08:30)
[2022-03-14] MEDS: CARBOXYMETHYLCELLULOSE (REFRESH PLUS) TEARS 1 DROP EYE-BOTH ×4 (08:30→19:49)
[2022-03-14] MEDS: METOPROLOL SUCCINATE (XL) 50 MG TAB 25 MG PO (08:30)
--- NOTE | 2022-03-14 11:28 | PC.SPIRITC ---
Visit provided for support and communion.
--- NOTE | 2022-03-14 13:28 | PC.SOCIAL ---
Care conference held today at 1:00 pm in resident's room. No family attended care conference. Updates from Luisa Maldonado in Nursing, Kymberly Smith in Nutrition, and this worker from social work. Resident's care plan was reviewed during care conference. Resident reports her outing with family this past weekend went well. Resident has been feeling better. Resident's mood is stable and there are no concerns from social work.
--- NOTE | 2022-03-14 16:15 | PC.NURSE ---
CARE CONFERENCE: Resident, nursing, dietary, and social service team present. Activity department left note to be read at care conference. Wt stable. Has increased wt over the past three months. Clinical Implementation Specialist happy with this increase. Resident states she has been eating more snacks in her room recently allowing her to gain more weight. Resident participates in activities occasionally. Reviewed ADLS, transfers and mobility. Mood is stable, no concerns. GDR of antipsychotropic medication has been done in past 3 months. No concerns/adverse effects at this time. Discussed other medications that have been ordered in past 90 days and resident has no questions/concerns at this time. Medication list given to resident. Care plan reviewed and updated. POLST reviewed. Is DNR/DNI. Uses no restraints. Does use 2 side rails up to assist with positioning.? Vulnerability- is at risk for being harmed due to weakness and fragility. Resident noted she does smoke when out with family. Does not want to see a dentist to review fit of dentures at this time. Does not want to see a provider for hearing or vision at this time. Resident does wear 02 at night and as needed during the day at times. Resident states her mood is stable and at times she feels more tired than other times. She is not concerned at this time. No plans for discharge. No questions/concerns at this time. Resident is happy with her cares
[2022-03-14] MEDS: SENNOSIDES 1 TAB TABLET PO (19:49)
[2022-03-14 21:18] VITALS: TEMP 36.8; O2SAT 93
[2022-03-14 23:00] VITALS: TEMP 37; O2SAT 92
--- NOTE | 2022-03-15 02:05 | PC.NURSE ---
WEEKLY CHARTING - WEEK 4: Vital signs reviewed - no concerns. Temporary and comprehensive care plan reviewed - no change. No documented behaviors in the last month. Currently receives venlafaxine 112.5mg daily with no noted adverse effects. Trazodone discontinued with no noted change in behavior or sleep pattern. Mildly [place] in some environments. Visual impairment is corrected with glasses. Is cognitively intact. Staff monitor for changes in mood r/t dx of depression and anxiety and update MD/RECLAMATION FURNACE OPERATOR as needed. Medications administered by nurse. No change to health condition.
[2022-03-15] MEDS: OMEPRAZOLE 20 MG CAPSULE DR PO (06:37)
[2022-03-15 07:00] VITALS: TEMP 36.8; O2SAT 93
[2022-03-15] MEDS: ACETAMINOPHEN 500 MG TABLET 1000 MG PO ×3 (08:32→19:59)
[2022-03-15] MEDS: ASPIRIN 81 MG TABLET EC PO (08:32)
[2022-03-15] MEDS: ALBUTEROL INHALER 2 PUFF IH ×4 (08:32→19:59)
[2022-03-15] MEDS: METOPROLOL SUCCINATE (XL) 50 MG TAB 25 MG PO (08:33)
[2022-03-15] MEDS: NON-FORMULARY MEDICATION 1 EACH PO (08:33)
[2022-03-15] MEDS: glipiZIDE 2.5 MG ER TAB PO (08:33)
[2022-03-15] MEDS: CARBOXYMETHYLCELLULOSE (REFRESH PLUS) TEARS 1 DROP EYE-BOTH ×4 (08:33→19:59)
[2022-03-15] MEDS: METFORMIN 1,000 MG TABLET 1000 MG PO ×2 (08:33→17:16)
[2022-03-15] MEDS: VENLAFAXINE HCL ER 37.5 MG CAPSULE PO (08:33)
[2022-03-15] MEDS: VENLAFAXINE ER 75 MG CAPSULE PO (08:33)
[2022-03-15] MEDS: FUROSEMIDE 40 MG TABLET 60 MG PO (08:33)
[2022-03-15] MEDS: POTASSIUM CHLORIDE 10 MEQ CAPSULE ER PO (08:33)
[2022-03-15] MEDS: NON-FORMULARY MEDICATION 1 EACH INH (08:33)
--- NOTE | 2022-03-15 10:52 | PC.NURSE ---
Week #4: Comprehensive care plan reviewed, no changes made. Nothing added to temporary care plan. No changes noted in communication, hearing, vision, or orientation. She does communicate needs.Is [place] in some environment. No device used. Speak and adjust tone of voice. Vision impairment corrected by glasses. Cognition intact. Chronic health condition stable. Vital signs reviewed,no concerns. Is able to self administer medications. Nurse may leave meds and check they are taken. Mood/Behavior: No issues the last month. Continues on Effexor 112.5mg daily with no adverse effects noted. 02/23/22 Trazodone discontinued, no changes in mood noted.
[2022-03-15 15:00] VITALS: TEMP 36.6; O2SAT 93
[2022-03-15] MEDS: NICOTINE 4 MG GUM BUCCAL (17:16)
[2022-03-15] MEDS: SENNOSIDES 1 TAB TABLET PO (19:59)
[2022-03-15] MEDS: OXYCODONE 5 MG TABLET PO (19:59)
[2022-03-15 23:00] VITALS: TEMP 36.9; O2SAT 92
[2022-03-16] MEDS: OMEPRAZOLE 20 MG CAPSULE DR PO (07:01)
[2022-03-16] MEDS: ALBUTEROL INHALER 2 PUFF IH ×4 (07:04→19:43)
[2022-03-16] MEDS: ASPIRIN 81 MG TABLET EC PO (07:04)
[2022-03-16] MEDS: ACETAMINOPHEN 500 MG TABLET 1000 MG PO ×3 (07:04→19:43)
[2022-03-16] MEDS: glipiZIDE 2.5 MG ER TAB PO (07:05)
[2022-03-16] MEDS: METOPROLOL SUCCINATE (XL) 50 MG TAB 25 MG PO (07:05)
[2022-03-16] MEDS: NON-FORMULARY MEDICATION 1 EACH PO (07:05)
[2022-03-16] MEDS: NON-FORMULARY MEDICATION 1 EACH INH (07:05)
[2022-03-16] MEDS: VENLAFAXINE ER 75 MG CAPSULE PO (07:05)
[2022-03-16] MEDS: CARBOXYMETHYLCELLULOSE (REFRESH PLUS) TEARS 1 DROP EYE-BOTH ×4 (07:05→19:43)
[2022-03-16] MEDS: VENLAFAXINE HCL ER 37.5 MG CAPSULE PO (07:05)
[2022-03-16] MEDS: NICOTINE 4 MG GUM BUCCAL ×2 (07:20→17:21)
[2022-03-16] MEDS: FUROSEMIDE 40 MG TABLET 60 MG PO (07:46)
[2022-03-16] MEDS: POTASSIUM CHLORIDE 10 MEQ CAPSULE ER PO (07:46)
[2022-03-16] MEDS: METFORMIN 1,000 MG TABLET 1000 MG PO ×2 (07:46→17:21)
[2022-03-16 08:23] LABS: SARS PCR* Negative SARS-CoV-2 (Negative)
--- NOTE | 2022-03-16 08:54 | PC.NURSE ---
Admit Covid day 5 swab test done and sent to lab.
[2022-03-16 10:28] VITALS: BP 116/75; PULSE 88; RESP 20; TEMP 36.2; O2SAT 96; BMI 20.7
[2022-03-16] MEDS: NON-FORMULARY MEDICATION 1 EACH SUBCUT (12:51)
[2022-03-16 15:00] VITALS: TEMP 36.9; O2SAT 96
[2022-03-16] MEDS: SENNOSIDES 1 TAB TABLET PO (19:43)
[2022-03-16 23:00] VITALS: TEMP 36.8; O2SAT 92
[2022-03-17] MEDS: OMEPRAZOLE 20 MG CAPSULE DR PO (07:08)
[2022-03-17] MEDS: ACETAMINOPHEN 500 MG TABLET 1000 MG PO ×3 (07:13→19:41)
[2022-03-17] MEDS: NON-FORMULARY MEDICATION 1 EACH INH (07:14)
[2022-03-17] MEDS: ASPIRIN 81 MG TABLET EC PO (07:14)
[2022-03-17] MEDS: METOPROLOL SUCCINATE (XL) 50 MG TAB 25 MG PO (07:14)
[2022-03-17] MEDS: glipiZIDE 2.5 MG ER TAB PO (07:14)
[2022-03-17] MEDS: VENLAFAXINE ER 75 MG CAPSULE PO (07:14)
[2022-03-17] MEDS: VENLAFAXINE HCL ER 37.5 MG CAPSULE PO (07:14)
[2022-03-17] MEDS: CARBOXYMETHYLCELLULOSE (REFRESH PLUS) TEARS 1 DROP EYE-BOTH ×4 (07:14→19:42)
[2022-03-17] MEDS: ALBUTEROL INHALER 2 PUFF IH ×4 (07:14→19:42)
[2022-03-17] MEDS: NICOTINE 4 MG GUM BUCCAL (07:20)
[2022-03-17] MEDS: METFORMIN 1,000 MG TABLET 1000 MG PO ×2 (08:03→19:41)
[2022-03-17] MEDS: POTASSIUM CHLORIDE 10 MEQ CAPSULE ER PO (08:03)
[2022-03-17] MEDS: FUROSEMIDE 40 MG TABLET 60 MG PO (08:03)
[2022-03-17 11:09] VITALS: TEMP 36.4; O2SAT 95
--- NOTE | 2022-03-17 16:01 | NUTR.NU ---
Nutrition Update: During resident's care conference, she mentioned that she would like to automatically be offered diet desserts at meals. Her diet is currently Low Concentrated Sweets which consists of 1/2 regular desserts and sugar-free condiments. She expressed that she would like to be automatically offered a diet dessert versus a regular dessert. BUD informed culinary Services. BUD also wrote this on resident's diet card and care plan.
[2022-03-17] MEDS: SENNOSIDES 1 TAB TABLET PO (19:42)
[2022-03-17 22:37] VITALS: TEMP 37.3; O2SAT 94
[2022-03-17 23:00] VITALS: TEMP 36.6; O2SAT 91
[2022-03-18 07:00] VITALS: TEMP 36.9; O2SAT 96
[2022-03-18] MEDS: ALBUTEROL INHALER 2 PUFF IH ×4 (07:07→19:21)
[2022-03-18] MEDS: OMEPRAZOLE 20 MG CAPSULE DR PO (07:07)
[2022-03-18] MEDS: ASPIRIN 81 MG TABLET EC PO (07:07)
[2022-03-18] MEDS: ACETAMINOPHEN 500 MG TABLET 1000 MG PO ×3 (07:07→19:21)
[2022-03-18] MEDS: CARBOXYMETHYLCELLULOSE (REFRESH PLUS) TEARS 1 DROP EYE-BOTH ×4 (07:08→19:21)
[2022-03-18] MEDS: FUROSEMIDE 40 MG TABLET 60 MG PO (07:08)
[2022-03-18] MEDS: VENLAFAXINE HCL ER 37.5 MG CAPSULE PO (07:08)
[2022-03-18] MEDS: NON-FORMULARY MEDICATION 1 EACH INH (07:08)
[2022-03-18] MEDS: METOPROLOL SUCCINATE (XL) 50 MG TAB 25 MG PO (07:08)
[2022-03-18] MEDS: VENLAFAXINE ER 75 MG CAPSULE PO (07:08)
[2022-03-18] MEDS: glipiZIDE 2.5 MG ER TAB PO (07:08)
[2022-03-18] MEDS: NON-FORMULARY MEDICATION 1 EACH PO (07:08)
[2022-03-18] MEDS: METFORMIN 1,000 MG TABLET 1000 MG PO ×2 (07:08→19:21)
[2022-03-18] MEDS: POTASSIUM CHLORIDE 10 MEQ CAPSULE ER PO (07:08)
[2022-03-18] MEDS: NICOTINE 4 MG GUM BUCCAL (07:21)
[2022-03-18 17:06] VITALS: TEMP 36.6; O2SAT 94
[2022-03-18] MEDS: SENNOSIDES 1 TAB TABLET PO (19:21)
[2022-03-18 23:00] VITALS: TEMP 36.7; O2SAT 90
[2022-03-19] MEDS: OMEPRAZOLE 20 MG CAPSULE DR PO (06:48)
[2022-03-19] MEDS: NICOTINE 4 MG GUM BUCCAL (06:49)
[2022-03-19 07:00] VITALS: TEMP 36.4; O2SAT 94
[2022-03-19] MEDS: VENLAFAXINE HCL ER 37.5 MG CAPSULE PO (07:05)
[2022-03-19] MEDS: ACETAMINOPHEN 500 MG TABLET 1000 MG PO ×3 (07:05→19:23)
[2022-03-19] MEDS: ASPIRIN 81 MG TABLET EC PO (07:05)
[2022-03-19] MEDS: VENLAFAXINE ER 75 MG CAPSULE PO (07:05)
[2022-03-19] MEDS: glipiZIDE 2.5 MG ER TAB PO (07:05)
[2022-03-19] MEDS: FUROSEMIDE 40 MG TABLET 60 MG PO (07:05)
[2022-03-19] MEDS: METFORMIN 1,000 MG TABLET 1000 MG PO ×2 (07:05→19:22)
[2022-03-19] MEDS: METOPROLOL SUCCINATE (XL) 50 MG TAB 25 MG PO (07:05)
[2022-03-19] MEDS: ALBUTEROL INHALER 2 PUFF IH ×4 (07:05→19:23)
[2022-03-19] MEDS: NON-FORMULARY MEDICATION 1 EACH INH (07:06)
[2022-03-19] MEDS: CARBOXYMETHYLCELLULOSE (REFRESH PLUS) TEARS 1 DROP EYE-BOTH ×4 (07:06→19:23)
[2022-03-19] MEDS: POTASSIUM CHLORIDE 10 MEQ CAPSULE ER PO (07:06)
[2022-03-19] MEDS: NON-FORMULARY MEDICATION 1 EACH PO (07:06)
[2022-03-19 17:09] VITALS: TEMP 36.6; O2SAT 96
[2022-03-19] MEDS: SENNOSIDES 1 TAB TABLET PO (19:23)
[2022-03-19 23:00] VITALS: TEMP 36.9; O2SAT 92
[2022-03-20] MEDS: ALBUTEROL INHALER 2 PUFF IH ×4 (07:07→19:43)
[2022-03-20] MEDS: ASPIRIN 81 MG TABLET EC PO (07:07)
[2022-03-20] MEDS: ACETAMINOPHEN 500 MG TABLET 1000 MG PO ×3 (07:07→19:42)
[2022-03-20] MEDS: METOPROLOL SUCCINATE (XL) 50 MG TAB 25 MG PO (07:07)
[2022-03-20] MEDS: VENLAFAXINE ER 75 MG CAPSULE PO (07:07)
[2022-03-20] MEDS: OMEPRAZOLE 20 MG CAPSULE DR PO (07:07)
[2022-03-20] MEDS: VENLAFAXINE HCL ER 37.5 MG CAPSULE PO (07:07)
[2022-03-20] MEDS: NON-FORMULARY MEDICATION 1 EACH INH (07:08)
[2022-03-20] MEDS: CARBOXYMETHYLCELLULOSE (REFRESH PLUS) TEARS 1 DROP EYE-BOTH ×4 (07:08→19:43)
[2022-03-20] MEDS: NON-FORMULARY MEDICATION 1 EACH PO (07:08)
[2022-03-20] MEDS: NICOTINE 4 MG GUM BUCCAL ×2 (07:08→17:35)
[2022-03-20] MEDS: METFORMIN 1,000 MG TABLET 1000 MG PO ×2 (08:16→17:35)
[2022-03-20] MEDS: POTASSIUM CHLORIDE 10 MEQ CAPSULE ER PO (08:16)
[2022-03-20] MEDS: FUROSEMIDE 40 MG TABLET 60 MG PO (08:16)
[2022-03-20] MEDS: glipiZIDE 2.5 MG ER TAB PO (08:16)
--- NOTE | 2022-03-20 10:00 | PC.NURSE ---
COVID OUTBREAK TESTING Resident provided verbal consent for outbreak COVID testing. Resident is currently asymptomatic.? Resident/family will be notified only if resident is positive.
[2022-03-20 10:18] VITALS: TEMP 37.2; O2SAT 93
[2022-03-20 13:07] LABS: SARS PCR* Negative SARS-CoV-2 (Negative)
[2022-03-20 15:00] VITALS: TEMP 36.6; O2SAT 96
[2022-03-20] MEDS: OXYCODONE 5 MG TABLET PO (18:12)
[2022-03-20] MEDS: SENNOSIDES 1 TAB TABLET PO (19:43)
[2022-03-20 23:00] VITALS: TEMP 36.6; O2SAT 92
[2022-03-21] MEDS: OMEPRAZOLE 20 MG CAPSULE DR PO (07:01)
[2022-03-21] MEDS: ASPIRIN 81 MG TABLET EC PO (07:01)
[2022-03-21] MEDS: ACETAMINOPHEN 500 MG TABLET 1000 MG PO ×3 (07:01→20:17)
[2022-03-21] MEDS: VENLAFAXINE ER 75 MG CAPSULE PO (07:01)
[2022-03-21] MEDS: VENLAFAXINE HCL ER 37.5 MG CAPSULE PO (07:01)
[2022-03-21] MEDS: NICOTINE 4 MG GUM BUCCAL ×2 (07:01→17:05)
[2022-03-21] MEDS: NON-FORMULARY MEDICATION 1 EACH PO (07:01)
[2022-03-21] MEDS: CARBOXYMETHYLCELLULOSE (REFRESH PLUS) TEARS 1 DROP EYE-BOTH ×4 (07:01→20:18)
[2022-03-21] MEDS: METOPROLOL SUCCINATE (XL) 50 MG TAB 25 MG PO (07:01)
[2022-03-21] MEDS: NON-FORMULARY MEDICATION 1 EACH INH (07:01)
[2022-03-21] MEDS: ALBUTEROL INHALER 2 PUFF IH ×4 (07:01→20:18)
[2022-03-21] MEDS: glipiZIDE 2.5 MG ER TAB PO (08:22)
[2022-03-21] MEDS: METFORMIN 1,000 MG TABLET 1000 MG PO ×2 (08:22→17:05)
[2022-03-21] MEDS: FUROSEMIDE 40 MG TABLET 60 MG PO (08:22)
[2022-03-21] MEDS: POTASSIUM CHLORIDE 10 MEQ CAPSULE ER PO (08:22)
[2022-03-21 09:49] VITALS: TEMP 36.8; O2SAT 96
[2022-03-21] MEDS: SENNOSIDES 1 TAB TABLET PO (20:18)
[2022-03-21 21:13] VITALS: TEMP 37.1; O2SAT 93
[2022-03-21 23:00] VITALS: TEMP 37.1; O2SAT 92
[2022-03-22] MEDS: OMEPRAZOLE 20 MG CAPSULE DR PO (06:42)
[2022-03-22] MEDS: NICOTINE 4 MG GUM BUCCAL ×2 (06:43→18:00)
[2022-03-22 07:00] VITALS: TEMP 37.1; O2SAT 96
[2022-03-22] MEDS: VENLAFAXINE HCL ER 37.5 MG CAPSULE PO (07:17)
[2022-03-22] MEDS: ALBUTEROL INHALER 2 PUFF IH ×4 (07:17→19:21)
[2022-03-22] MEDS: ACETAMINOPHEN 500 MG TABLET 1000 MG PO ×3 (07:17→19:21)
[2022-03-22] MEDS: glipiZIDE 2.5 MG ER TAB PO (07:17)
[2022-03-22] MEDS: ASPIRIN 81 MG TABLET EC PO (07:17)
[2022-03-22] MEDS: FUROSEMIDE 40 MG TABLET 60 MG PO (07:17)
[2022-03-22] MEDS: VENLAFAXINE ER 75 MG CAPSULE PO (07:17)
[2022-03-22] MEDS: NON-FORMULARY MEDICATION 1 EACH PO (07:18)
[2022-03-22] MEDS: CARBOXYMETHYLCELLULOSE (REFRESH PLUS) TEARS 1 DROP EYE-BOTH ×4 (07:18→19:21)
[2022-03-22] MEDS: NON-FORMULARY MEDICATION 1 EACH INH (07:18)
[2022-03-22] MEDS: METFORMIN 1,000 MG TABLET 1000 MG PO ×2 (07:18→18:00)
[2022-03-22] MEDS: METOPROLOL SUCCINATE (XL) 50 MG TAB 25 MG PO (07:18)
[2022-03-22] MEDS: POTASSIUM CHLORIDE 10 MEQ CAPSULE ER PO (07:18)
[2022-03-22 15:00] VITALS: TEMP 36.8; O2SAT 97
[2022-03-22] MEDS: SENNOSIDES 1 TAB TABLET PO (19:21)
[2022-03-22 23:00] VITALS: TEMP 36.8; O2SAT 94
[2022-03-23] MEDS: OMEPRAZOLE 20 MG CAPSULE DR PO (06:38)
[2022-03-23 07:00] VITALS: BP 114/74; PULSE 88; RESP 18; TEMP 36.6; O2SAT 92; BMI 20.7
[2022-03-23] MEDS: ACETAMINOPHEN 500 MG TABLET 1000 MG PO ×3 (07:11→19:38)
[2022-03-23] MEDS: POTASSIUM CHLORIDE 10 MEQ CAPSULE ER PO (07:11)
[2022-03-23] MEDS: VENLAFAXINE ER 75 MG CAPSULE PO (07:11)
[2022-03-23] MEDS: ASPIRIN 81 MG TABLET EC PO (07:11)
[2022-03-23] MEDS: NON-FORMULARY MEDICATION 1 EACH INH (07:11)
[2022-03-23] MEDS: FUROSEMIDE 40 MG TABLET 60 MG PO (07:11)
[2022-03-23] MEDS: METOPROLOL SUCCINATE (XL) 50 MG TAB 25 MG PO (07:11)
[2022-03-23] MEDS: VENLAFAXINE HCL ER 37.5 MG CAPSULE PO (07:11)
[2022-03-23] MEDS: glipiZIDE 2.5 MG ER TAB PO (07:11)
[2022-03-23] MEDS: METFORMIN 1,000 MG TABLET 1000 MG PO ×2 (07:11→18:18)
[2022-03-23] MEDS: NON-FORMULARY MEDICATION 1 EACH PO (07:11)
[2022-03-23] MEDS: ALBUTEROL INHALER 2 PUFF IH ×4 (07:11→19:38)
[2022-03-23] MEDS: CARBOXYMETHYLCELLULOSE (REFRESH PLUS) TEARS 1 DROP EYE-BOTH ×4 (07:12→19:38)
[2022-03-23 15:00] VITALS: TEMP 36.6; O2SAT 92
[2022-03-23] MEDS: SENNOSIDES 1 TAB TABLET PO (19:38)
[2022-03-23 23:00] VITALS: TEMP 36.8; O2SAT 94
[2022-03-24] MEDS: OMEPRAZOLE 20 MG CAPSULE DR PO (06:57)
[2022-03-24] MEDS: VENLAFAXINE HCL ER 37.5 MG CAPSULE PO (07:37)
[2022-03-24] MEDS: ACETAMINOPHEN 500 MG TABLET 1000 MG PO ×3 (07:37→19:47)
[2022-03-24] MEDS: NON-FORMULARY MEDICATION 1 EACH INH (07:37)
[2022-03-24] MEDS: METOPROLOL SUCCINATE (XL) 50 MG TAB 25 MG PO (07:37)
[2022-03-24] MEDS: ALBUTEROL INHALER 2 PUFF IH ×4 (07:37→19:47)
[2022-03-24] MEDS: VENLAFAXINE ER 75 MG CAPSULE PO (07:37)
[2022-03-24] MEDS: ASPIRIN 81 MG TABLET EC PO (07:37)
[2022-03-24] MEDS: glipiZIDE 2.5 MG ER TAB PO (07:37)
[2022-03-24] MEDS: CARBOXYMETHYLCELLULOSE (REFRESH PLUS) TEARS 1 DROP EYE-BOTH ×4 (07:38→19:47)
[2022-03-24] MEDS: METFORMIN 1,000 MG TABLET 1000 MG PO ×2 (08:10→17:10)
[2022-03-24] MEDS: FUROSEMIDE 40 MG TABLET 60 MG PO (08:10)
[2022-03-24] MEDS: POTASSIUM CHLORIDE 10 MEQ CAPSULE ER PO (08:10)
[2022-03-24] MEDS: NICOTINE 4 MG GUM BUCCAL ×2 (09:15→17:10)
[2022-03-24 10:19] VITALS: TEMP 36.4; O2SAT 94
[2022-03-24] MEDS: SENNOSIDES 1 TAB TABLET PO (19:47)
[2022-03-24 21:08] VITALS: TEMP 36.4; O2SAT 96
[2022-03-24 23:00] VITALS: TEMP 36.3; O2SAT 93
[2022-03-25] MEDS: OMEPRAZOLE 20 MG CAPSULE DR PO (07:13)
[2022-03-25] MEDS: ACETAMINOPHEN 500 MG TABLET 1000 MG PO ×3 (07:13→19:45)
[2022-03-25] MEDS: METOPROLOL SUCCINATE (XL) 50 MG TAB 25 MG PO (07:13)
[2022-03-25] MEDS: glipiZIDE 2.5 MG ER TAB PO (07:13)
[2022-03-25] MEDS: VENLAFAXINE HCL ER 37.5 MG CAPSULE PO (07:13)
[2022-03-25] MEDS: VENLAFAXINE ER 75 MG CAPSULE PO (07:13)
[2022-03-25] MEDS: NON-FORMULARY MEDICATION 1 EACH PO (07:13)
[2022-03-25] MEDS: ALBUTEROL INHALER 2 PUFF IH ×4 (07:13→19:45)
[2022-03-25] MEDS: ASPIRIN 81 MG TABLET EC PO (07:13)
[2022-03-25] MEDS: CARBOXYMETHYLCELLULOSE (REFRESH PLUS) TEARS 1 DROP EYE-BOTH ×4 (07:14→19:45)
[2022-03-25] MEDS: NON-FORMULARY MEDICATION 1 EACH INH (07:14)
[2022-03-25] MEDS: NICOTINE 4 MG GUM BUCCAL ×2 (07:15→17:06)
[2022-03-25] MEDS: POTASSIUM CHLORIDE 10 MEQ CAPSULE ER PO (08:21)
[2022-03-25] MEDS: METFORMIN 1,000 MG TABLET 1000 MG PO ×2 (08:21→17:06)
[2022-03-25] MEDS: FUROSEMIDE 40 MG TABLET 60 MG PO (08:21)
[2022-03-25 10:12] VITALS: TEMP 36.3; O2SAT 94
[2022-03-25] MEDS: OXYCODONE 5 MG TABLET PO (19:44)
[2022-03-25] MEDS: SENNOSIDES 1 TAB TABLET PO (19:45)
[2022-03-25 21:12] VITALS: TEMP 36.7; O2SAT 93
[2022-03-25 23:00] VITALS: TEMP 36.4; O2SAT 91
[2022-03-26] MEDS: ACETAMINOPHEN 500 MG TABLET 1000 MG PO ×3 (07:14→19:44)
[2022-03-26] MEDS: ASPIRIN 81 MG TABLET EC PO (07:14)
[2022-03-26] MEDS: ALBUTEROL INHALER 2 PUFF IH ×4 (07:14→19:44)
[2022-03-26] MEDS: OMEPRAZOLE 20 MG CAPSULE DR PO (07:14)
[2022-03-26] MEDS: VENLAFAXINE HCL ER 37.5 MG CAPSULE PO (07:14)
[2022-03-26] MEDS: METOPROLOL SUCCINATE (XL) 50 MG TAB 25 MG PO (07:14)
[2022-03-26] MEDS: NON-FORMULARY MEDICATION 1 EACH PO (07:14)
[2022-03-26] MEDS: VENLAFAXINE ER 75 MG CAPSULE PO (07:14)
[2022-03-26] MEDS: NON-FORMULARY MEDICATION 1 EACH INH (07:15)
[2022-03-26] MEDS: CARBOXYMETHYLCELLULOSE (REFRESH PLUS) TEARS 1 DROP EYE-BOTH ×4 (07:15→19:44)
[2022-03-26] MEDS: NICOTINE 4 MG GUM BUCCAL ×2 (07:15→17:17)
[2022-03-26] MEDS: METFORMIN 1,000 MG TABLET 1000 MG PO ×2 (08:14→17:17)
[2022-03-26] MEDS: FUROSEMIDE 40 MG TABLET 60 MG PO (08:14)
[2022-03-26] MEDS: glipiZIDE 2.5 MG ER TAB PO (08:14)
[2022-03-26] MEDS: POTASSIUM CHLORIDE 10 MEQ CAPSULE ER PO (08:15)
[2022-03-26 10:34] VITALS: TEMP 36.8; O2SAT 95
[2022-03-26] MEDS: SENNOSIDES 1 TAB TABLET PO (19:44)
[2022-03-26 21:03] VITALS: TEMP 36.4; O2SAT 97
[2022-03-26 23:00] VITALS: TEMP 36.6; O2SAT 94
[2022-03-27] MEDS: OMEPRAZOLE 20 MG CAPSULE DR PO (06:30)
[2022-03-27 07:00] VITALS: TEMP 36.6; O2SAT 92
[2022-03-27] MEDS: ACETAMINOPHEN 500 MG TABLET 1000 MG PO ×3 (07:20→19:19)
[2022-03-27] MEDS: CARBOXYMETHYLCELLULOSE (REFRESH PLUS) TEARS 1 DROP EYE-BOTH ×4 (07:21→19:19)
[2022-03-27] MEDS: NON-FORMULARY MEDICATION 1 EACH PO (07:21)
[2022-03-27] MEDS: METFORMIN 1,000 MG TABLET 1000 MG PO ×2 (07:21→19:19)
[2022-03-27] MEDS: METOPROLOL SUCCINATE (XL) 50 MG TAB 25 MG PO (07:21)
[2022-03-27] MEDS: glipiZIDE 2.5 MG ER TAB PO (07:21)
[2022-03-27] MEDS: POTASSIUM CHLORIDE 10 MEQ CAPSULE ER PO (07:21)
[2022-03-27] MEDS: ASPIRIN 81 MG TABLET EC PO (07:21)
[2022-03-27] MEDS: NON-FORMULARY MEDICATION 1 EACH INH (07:21)
[2022-03-27] MEDS: FUROSEMIDE 40 MG TABLET 60 MG PO (07:21)
[2022-03-27] MEDS: VENLAFAXINE HCL ER 37.5 MG CAPSULE PO (07:21)
[2022-03-27] MEDS: VENLAFAXINE ER 75 MG CAPSULE PO (07:21)
[2022-03-27] MEDS: ALBUTEROL INHALER 2 PUFF IH ×4 (07:21→19:19)
--- NOTE | 2022-03-27 09:41 | PC.NURSE ---
COVID OUTBREAK TESTING Residents daughter gave verbal consent for outbreak COVID testing. Resident is currently asymptomatic.? Resident/family will be notified only if resident is positive.
[2022-03-27 11:23] LABS: SARS PCR* Negative SARS-CoV-2 (Negative)
[2022-03-27 15:00] VITALS: TEMP 36.6; O2SAT 92
[2022-03-27] MEDS: SENNOSIDES 1 TAB TABLET PO (19:19)
[2022-03-27] MEDS: NICOTINE 4 MG GUM BUCCAL (19:20)
[2022-03-28 03:21] VITALS: TEMP 36.6; O2SAT 92
[2022-03-28] MEDS: OMEPRAZOLE 20 MG CAPSULE DR PO (06:54)
[2022-03-28 07:00] VITALS: TEMP 36.6; O2SAT 97
[2022-03-28] MEDS: ACETAMINOPHEN 500 MG TABLET 1000 MG PO ×3 (07:35→19:20)
[2022-03-28] MEDS: ALBUTEROL INHALER 2 PUFF IH ×4 (07:35→19:20)
[2022-03-28] MEDS: CARBOXYMETHYLCELLULOSE (REFRESH PLUS) TEARS 1 DROP EYE-BOTH ×4 (07:36→19:20)
[2022-03-28] MEDS: VENLAFAXINE ER 75 MG CAPSULE PO (07:36)
[2022-03-28] MEDS: METFORMIN 1,000 MG TABLET 1000 MG PO ×2 (07:36→19:19)
[2022-03-28] MEDS: POTASSIUM CHLORIDE 10 MEQ CAPSULE ER PO (07:36)
[2022-03-28] MEDS: METOPROLOL SUCCINATE (XL) 50 MG TAB 25 MG PO (07:36)
[2022-03-28] MEDS: VENLAFAXINE HCL ER 37.5 MG CAPSULE PO (07:36)
[2022-03-28] MEDS: NON-FORMULARY MEDICATION 1 EACH INH (07:36)
[2022-03-28] MEDS: ASPIRIN 81 MG TABLET EC PO (07:36)
[2022-03-28] MEDS: FUROSEMIDE 40 MG TABLET 60 MG PO (07:36)
[2022-03-28] MEDS: NON-FORMULARY MEDICATION 1 EACH PO (07:36)
[2022-03-28] MEDS: glipiZIDE 2.5 MG ER TAB PO (07:36)
[2022-03-28] MEDS: NICOTINE 4 MG GUM BUCCAL (07:52)
[2022-03-28] MEDS: SENNOSIDES 1 TAB TABLET PO (19:20)
[2022-03-28 21:32] VITALS: TEMP 36.6; O2SAT 96
[2022-03-28 23:00] VITALS: TEMP 36.6; O2SAT 92
[2022-03-29] MEDS: OMEPRAZOLE 20 MG CAPSULE DR PO (07:09)
[2022-03-29] MEDS: ACETAMINOPHEN 500 MG TABLET 1000 MG PO ×3 (07:09→19:18)
[2022-03-29] MEDS: VENLAFAXINE ER 75 MG CAPSULE PO (07:10)
[2022-03-29] MEDS: ALBUTEROL INHALER 2 PUFF IH ×4 (07:10→19:18)
[2022-03-29] MEDS: VENLAFAXINE HCL ER 37.5 MG CAPSULE PO (07:10)
[2022-03-29] MEDS: CARBOXYMETHYLCELLULOSE (REFRESH PLUS) TEARS 1 DROP EYE-BOTH ×4 (07:10→19:18)
[2022-03-29] MEDS: ASPIRIN 81 MG TABLET EC PO (07:10)
[2022-03-29] MEDS: METOPROLOL SUCCINATE (XL) 50 MG TAB 25 MG PO (07:10)
[2022-03-29] MEDS: NON-FORMULARY MEDICATION 1 EACH INH (07:10)
[2022-03-29] MEDS: NON-FORMULARY MEDICATION 1 EACH PO (07:10)
[2022-03-29] MEDS: NICOTINE 4 MG GUM BUCCAL ×2 (07:25→17:42)
[2022-03-29] MEDS: METFORMIN 1,000 MG TABLET 1000 MG PO ×2 (08:36→17:42)
[2022-03-29] MEDS: glipiZIDE 2.5 MG ER TAB PO (08:36)
[2022-03-29] MEDS: POTASSIUM CHLORIDE 10 MEQ CAPSULE ER PO (08:36)
[2022-03-29] MEDS: FUROSEMIDE 40 MG TABLET 60 MG PO (08:36)
[2022-03-29 10:23] VITALS: TEMP 36.4; O2SAT 97
[2022-03-29 15:00] VITALS: TEMP 37; O2SAT 97
[2022-03-29] MEDS: SENNOSIDES 1 TAB TABLET PO (19:19)
[2022-03-29] MEDS: OXYCODONE 5 MG TABLET PO (19:20)
[2022-03-29 21:24] VITALS: TEMP 37; O2SAT 97
--- NOTE | 2022-03-29 21:37 | PC.NURSE ---
WEEKLY CHARTING - WEEK 1 Pain & ADL's: Temporary/Comprehensive care plan and vital signs reviewed. No changes made to plan. No new concerns with vital signs at this time. Resident is independent with dressing, grooming, hygiene, and oral cares. Limited assist of 1 with bathing as resident participate in performing this task. Regular diet. Eats independently after set-up. Diabetic friendly snacks offered TID.? Pain: Receives scheduled Acetaminophen TID, and PRN Oxycodone as part pain regimen. Hx of chronic right shoulder pain
[2022-03-30] MEDS: ACETAMINOPHEN 500 MG TABLET 1000 MG PO ×3 (07:02→19:39)
[2022-03-30] MEDS: OMEPRAZOLE 20 MG CAPSULE DR PO (07:02)
[2022-03-30] MEDS: NICOTINE 4 MG GUM BUCCAL ×2 (07:03→17:20)
[2022-03-30] MEDS: METOPROLOL SUCCINATE (XL) 50 MG TAB 25 MG PO (07:03)
[2022-03-30] MEDS: NON-FORMULARY MEDICATION 1 EACH INH (07:03)
[2022-03-30] MEDS: ALBUTEROL INHALER 2 PUFF IH ×4 (07:03→19:39)
[2022-03-30] MEDS: CARBOXYMETHYLCELLULOSE (REFRESH PLUS) TEARS 1 DROP EYE-BOTH ×4 (07:03→19:39)
[2022-03-30] MEDS: VENLAFAXINE ER 75 MG CAPSULE PO (07:03)
[2022-03-30] MEDS: NON-FORMULARY MEDICATION 1 EACH PO (07:03)
[2022-03-30] MEDS: ASPIRIN 81 MG TABLET EC PO (07:03)
[2022-03-30] MEDS: VENLAFAXINE HCL ER 37.5 MG CAPSULE PO (07:03)
[2022-03-30] MEDS: glipiZIDE 2.5 MG ER TAB PO (08:32)
[2022-03-30] MEDS: POTASSIUM CHLORIDE 10 MEQ CAPSULE ER PO (08:32)
[2022-03-30] MEDS: FUROSEMIDE 40 MG TABLET 60 MG PO (08:32)
[2022-03-30] MEDS: METFORMIN 1,000 MG TABLET 1000 MG PO ×2 (08:32→17:20)
[2022-03-30 09:53] VITALS: BP 124/74; PULSE 84; RESP 18; TEMP 36.7; O2SAT 97
[2022-03-30] MEDS: MAGNESIUM HYDROXIDE 30 ML ORAL.SUSP PO (10:20)
[2022-03-30] MEDS: NON-FORMULARY MEDICATION 1 EACH SUBCUT (11:30)
[2022-03-30] MEDS: SENNOSIDES 1 TAB TABLET PO (19:39)
[2022-03-30 20:52] VITALS: TEMP 36.4; O2SAT 93
[2022-03-30 23:00] VITALS: TEMP 36.6; O2SAT 92
[2022-03-31] MEDS: OMEPRAZOLE 20 MG CAPSULE DR PO (06:25)
[2022-03-31] MEDS: VENLAFAXINE HCL ER 37.5 MG CAPSULE PO (07:12)
[2022-03-31] MEDS: ASPIRIN 81 MG TABLET EC PO (07:12)
[2022-03-31] MEDS: ACETAMINOPHEN 500 MG TABLET 1000 MG PO (07:12)
[2022-03-31] MEDS: ALBUTEROL INHALER 2 PUFF IH (07:12)
[2022-03-31] MEDS: VENLAFAXINE ER 75 MG CAPSULE PO (07:12)
[2022-03-31] MEDS: glipiZIDE 2.5 MG ER TAB PO (07:13)
[2022-03-31] MEDS: POTASSIUM CHLORIDE 10 MEQ CAPSULE ER PO (07:13)
[2022-03-31] MEDS: CARBOXYMETHYLCELLULOSE (REFRESH PLUS) TEARS 1 DROP EYE-BOTH (07:13)
[2022-03-31] MEDS: METOPROLOL SUCCINATE (XL) 50 MG TAB 25 MG PO (07:13)
[2022-03-31] MEDS: METFORMIN 1,000 MG TABLET 1000 MG PO (07:13)
[2022-03-31] MEDS: NON-FORMULARY MEDICATION 1 EACH INH (07:14)
--- NOTE | 2022-03-31 10:12 | PC.NURSE ---
TEO: Resident went out with son and plan of coming back on Sunday. All appropriate medications sent and #8 tablets Oxycodone.
[2022-04-02] MEDS: ALBUTEROL INHALER 2 PUFF IH ×2 (16:03→19:27)
[2022-04-02] MEDS: CARBOXYMETHYLCELLULOSE (REFRESH PLUS) TEARS 1 DROP EYE-BOTH ×2 (16:03→19:27)
[2022-04-02 17:12] LABS: SARS PCR* Negative SARS-CoV-2 (Negative)
[2022-04-02] MEDS: METFORMIN 1,000 MG TABLET 1000 MG PO (19:27)
[2022-04-02] MEDS: SENNOSIDES 1 TAB TABLET PO (19:27)
[2022-04-02] MEDS: ACETAMINOPHEN 500 MG TABLET 1000 MG PO (19:27)
[2022-04-02 21:54] VITALS: TEMP 36.6; O2SAT 95
[2022-04-02 23:00] VITALS: TEMP 36.4; O2SAT 91
[2022-04-03] MEDS: VENLAFAXINE ER 75 MG CAPSULE PO (07:01)
[2022-04-03] MEDS: ALBUTEROL INHALER 2 PUFF IH ×4 (07:01→19:30)
[2022-04-03] MEDS: OMEPRAZOLE 20 MG CAPSULE DR PO (07:01)
[2022-04-03] MEDS: ASPIRIN 81 MG TABLET EC PO (07:01)
[2022-04-03] MEDS: ACETAMINOPHEN 500 MG TABLET 1000 MG PO ×3 (07:01→19:29)
[2022-04-03] MEDS: METOPROLOL SUCCINATE (XL) 50 MG TAB 25 MG PO (07:01)
[2022-04-03] MEDS: NON-FORMULARY MEDICATION 1 EACH INH (07:02)
[2022-04-03] MEDS: CARBOXYMETHYLCELLULOSE (REFRESH PLUS) TEARS 1 DROP EYE-BOTH ×4 (07:02→19:30)
[2022-04-03] MEDS: NON-FORMULARY MEDICATION 1 EACH PO (07:02)
[2022-04-03] MEDS: NICOTINE 4 MG GUM BUCCAL ×2 (07:20→17:36)
[2022-04-03] MEDS: FUROSEMIDE 40 MG TABLET 60 MG PO (08:26)
[2022-04-03] MEDS: VENLAFAXINE HCL ER 37.5 MG CAPSULE PO (08:26)
[2022-04-03] MEDS: glipiZIDE 2.5 MG ER TAB PO (08:26)
[2022-04-03] MEDS: POTASSIUM CHLORIDE 10 MEQ CAPSULE ER PO (08:26)
[2022-04-03] MEDS: METFORMIN 1,000 MG TABLET 1000 MG PO ×2 (08:26→17:36)
[2022-04-03 10:09] VITALS: TEMP 36.9; O2SAT 94
[2022-04-03 15:00] VITALS: TEMP 36.6; O2SAT 95
[2022-04-03] MEDS: SENNOSIDES 1 TAB TABLET PO (19:30)
[2022-04-03 23:00] VITALS: TEMP 36.6; O2SAT 92
[2022-04-04] MEDS: OMEPRAZOLE 20 MG CAPSULE DR PO (06:54)
[2022-04-04] MEDS: VENLAFAXINE HCL ER 37.5 MG CAPSULE PO (07:03)
[2022-04-04] MEDS: ACETAMINOPHEN 500 MG TABLET 1000 MG PO ×3 (07:03→19:24)
[2022-04-04] MEDS: ASPIRIN 81 MG TABLET EC PO (07:03)
[2022-04-04] MEDS: VENLAFAXINE ER 75 MG CAPSULE PO (07:03)
[2022-04-04] MEDS: ALBUTEROL INHALER 2 PUFF IH ×4 (07:03→19:24)
[2022-04-04] MEDS: NON-FORMULARY MEDICATION 1 EACH PO (07:04)
[2022-04-04] MEDS: NON-FORMULARY MEDICATION 1 EACH INH (07:04)
[2022-04-04] MEDS: METOPROLOL SUCCINATE (XL) 50 MG TAB 25 MG PO (07:04)
[2022-04-04] MEDS: CARBOXYMETHYLCELLULOSE (REFRESH PLUS) TEARS 1 DROP EYE-BOTH ×4 (07:04→19:24)
[2022-04-04] MEDS: glipiZIDE 2.5 MG ER TAB PO (07:04)
--- NOTE | 2022-04-04 07:10 | PC.NURSE ---
Admit Covid day 3 swab test done and sent to lab.
[2022-04-04 07:40] LABS: SARS PCR* Negative SARS-CoV-2 (Negative)
[2022-04-04] MEDS: NICOTINE 4 MG GUM BUCCAL (07:56)
[2022-04-04] MEDS: POTASSIUM CHLORIDE 10 MEQ CAPSULE ER PO (08:25)
[2022-04-04] MEDS: FUROSEMIDE 40 MG TABLET 60 MG PO (08:25)
[2022-04-04] MEDS: METFORMIN 1,000 MG TABLET 1000 MG PO ×2 (08:25→17:17)
[2022-04-04 10:07] VITALS: TEMP 36.5; O2SAT 93
[2022-04-04 16:50] VITALS: TEMP 36.4; O2SAT 95
[2022-04-04] MEDS: SENNOSIDES 1 TAB TABLET PO (19:24)
--- NOTE | 2022-04-04 21:47 | PC.NURSE ---
GUS Ríosia reported to the evening SABRINA that she was feeling SOB so oxygen was applied at 2 liters per nasal cannula.
[2022-04-04 23:00] VITALS: TEMP 36.7; O2SAT 97
--- NOTE | 2022-04-05 03:46 | PC.NURSE ---
WEEKLY CHARTING - WEEK 2: Vital signs reviewed - no concerns. Temporary and comprehensive care plan reviewed - no change. Is independent with transfers, ambulation, and bed mobility. Uses 4WW for ambulation and bilateral 1/4 side rails as enabler for bed mobility. Is at low risk for falls per assessment. Fall interventions: call light in reach, walker at bedside, bed in low position with brakes locked, needs reminders to use walker at times.
[2022-04-05] MEDS: OMEPRAZOLE 20 MG CAPSULE DR PO (06:32)
[2022-04-05] MEDS: ALBUTEROL INHALER 2 PUFF IH ×4 (07:03→19:20)
[2022-04-05] MEDS: ASPIRIN 81 MG TABLET EC PO (07:03)
[2022-04-05] MEDS: ACETAMINOPHEN 500 MG TABLET 1000 MG PO ×3 (07:03→19:20)
[2022-04-05] MEDS: VENLAFAXINE HCL ER 37.5 MG CAPSULE PO (07:04)
[2022-04-05] MEDS: FUROSEMIDE 40 MG TABLET 60 MG PO (07:04)
[2022-04-05] MEDS: METOPROLOL SUCCINATE (XL) 50 MG TAB 25 MG PO (07:04)
[2022-04-05] MEDS: METFORMIN 1,000 MG TABLET 1000 MG PO ×2 (07:04→17:32)
[2022-04-05] MEDS: NON-FORMULARY MEDICATION 1 EACH PO (07:04)
[2022-04-05] MEDS: VENLAFAXINE ER 75 MG CAPSULE PO (07:04)
[2022-04-05] MEDS: NON-FORMULARY MEDICATION 1 EACH INH (07:04)
[2022-04-05] MEDS: glipiZIDE 2.5 MG ER TAB PO (07:04)
[2022-04-05] MEDS: POTASSIUM CHLORIDE 10 MEQ CAPSULE ER PO (07:04)
[2022-04-05] MEDS: CARBOXYMETHYLCELLULOSE (REFRESH PLUS) TEARS 1 DROP EYE-BOTH ×4 (07:05→19:20)
--- NOTE | 2022-04-05 07:11 | PC.NURSE ---
Week #2: Comprehensive care plan reviewed, no changes made. Nothing added to temporary care plan. Resident is independent with transfers, ambulation, and bed mobility. Transfers/ambulates with a 4ww. Uses wheelchair when going for outings and is independent with propulsion, assist as needed. 2 1/4 side rails up at all times to promote independence/positioning. Vital signs reviewed, no concerns. Fall: No falls the past month. Remains a low fall risk according to assessment done on 03/08/22.
[2022-04-05] MEDS: NICOTINE 4 MG GUM BUCCAL ×2 (07:30→17:32)
[2022-04-05 09:31] VITALS: TEMP 37; O2SAT 94
--- NOTE | 2022-04-05 11:39 | PC.PHA1 ---
SYSTEMS ACCOUNTANT PHARMACIST'S MEDICATION REVIEW: MEDICATION MONITORING:Venlafaxine 112.5 mg daily for generalized anxiety and major depression. IRREGULARITY OR COMMENTS:Patient continues on same medication regimen and continues to manage herself quite well per nursing notes. I am quite apprehensive to attempt venlafaxine GDR at this time as she is content but also needing some oxygen at bedtime. I would hate to dose decrease a medication that is not causing side effects only to replace it with one that will cause side effects like increasing fall potential. At time of this review, GDR of venlafaxine clinically contraindicated. No antibiotics or benzodiazepines prescribed. SUGGESTED COURSE OF ACTION TAKEN: No medication concerns or recommendations.
[2022-04-05 15:00] VITALS: TEMP 36.6; O2SAT 95
[2022-04-05] MEDS: SENNOSIDES 1 TAB TABLET PO (19:20)
[2022-04-05 23:00] VITALS: TEMP 36.6; O2SAT 92
[2022-04-06] MEDS: OMEPRAZOLE 20 MG CAPSULE DR PO (06:30)
[2022-04-06] MEDS: ACETAMINOPHEN 500 MG TABLET 1000 MG PO ×3 (07:06→19:47)
[2022-04-06] MEDS: FUROSEMIDE 40 MG TABLET 60 MG PO (07:06)
[2022-04-06] MEDS: VENLAFAXINE ER 75 MG CAPSULE PO (07:06)
[2022-04-06] MEDS: VENLAFAXINE HCL ER 37.5 MG CAPSULE PO (07:06)
[2022-04-06] MEDS: ASPIRIN 81 MG TABLET EC PO (07:06)
[2022-04-06] MEDS: glipiZIDE 2.5 MG ER TAB PO (07:06)
[2022-04-06] MEDS: ALBUTEROL INHALER 2 PUFF IH ×4 (07:06→19:47)
[2022-04-06] MEDS: FOLIC ACID 800 MCG PO (07:07)
[2022-04-06] MEDS: CARBOXYMETHYLCELLULOSE (REFRESH PLUS) TEARS 1 DROP EYE-BOTH ×4 (07:07→19:47)
[2022-04-06] MEDS: NON-FORMULARY MEDICATION 1 EACH INH (07:07)
[2022-04-06] MEDS: METFORMIN 1,000 MG TABLET 1000 MG PO ×2 (07:07→19:47)
[2022-04-06] MEDS: METOPROLOL SUCCINATE (XL) 50 MG TAB 25 MG PO (07:07)
[2022-04-06] MEDS: POTASSIUM CHLORIDE 10 MEQ CAPSULE ER PO (07:07)
[2022-04-06] MEDS: NICOTINE 4 MG GUM BUCCAL (07:08)
[2022-04-06 08:25] LABS: SARS PCR* Negative SARS-CoV-2 (Negative)
--- NOTE | 2022-04-06 08:56 | PC.NURSE ---
Admit Covid swab test day 5 done and sent to lab.
[2022-04-06 09:02] VITALS: BP 146/77; PULSE 94; RESP 17; TEMP 36.2; O2SAT 96; BMI 20.4
--- NOTE | 2022-04-06 09:34 | PC.SPIRITC ---
I provided visit for connection and to wish Tran a Happy Birthday.
--- NOTE | 2022-04-06 11:29 | PC.NURSE ---
Recert Visit: Resident seen by SALES CLOSERAnselmo. Orders reviewed and renewed of 75 days with changes. Order: Discontinue Miralax daily PRN &Loperamide 2 mg Q2H PRN.
[2022-04-06 16:36] VITALS: TEMP 36.6; O2SAT 96
[2022-04-06] MEDS: SENNOSIDES 1 TAB TABLET PO (19:47)
[2022-04-06 23:00] VITALS: TEMP 36.9; O2SAT 92
[2022-04-07] MEDS: OMEPRAZOLE 20 MG CAPSULE DR PO (06:41)
[2022-04-07] MEDS: glipiZIDE 2.5 MG ER TAB PO (07:17)
[2022-04-07] MEDS: NON-FORMULARY MEDICATION 1 EACH INH (07:17)
[2022-04-07] MEDS: CARBOXYMETHYLCELLULOSE (REFRESH PLUS) TEARS 1 DROP EYE-BOTH ×4 (07:17→19:08)
[2022-04-07] MEDS: METOPROLOL SUCCINATE (XL) 50 MG TAB 25 MG PO (07:17)
[2022-04-07] MEDS: NICOTINE 4 MG GUM BUCCAL ×3 (07:17→17:05)
[2022-04-07] MEDS: VENLAFAXINE ER 75 MG CAPSULE PO (07:18)
[2022-04-07] MEDS: ASPIRIN 81 MG TABLET EC PO (07:18)
[2022-04-07] MEDS: ACETAMINOPHEN 500 MG TABLET 1000 MG PO ×3 (07:18→19:08)
[2022-04-07] MEDS: ALBUTEROL INHALER 2 PUFF IH ×4 (07:18→19:08)
[2022-04-07] MEDS: VENLAFAXINE HCL ER 37.5 MG CAPSULE PO (07:18)
[2022-04-07] MEDS: FUROSEMIDE 40 MG TABLET 60 MG PO (08:05)
[2022-04-07] MEDS: METFORMIN 1,000 MG TABLET 1000 MG PO ×2 (08:05→17:05)
[2022-04-07] MEDS: POTASSIUM CHLORIDE 10 MEQ CAPSULE ER PO (08:05)
[2022-04-07 10:04] VITALS: TEMP 36.6; O2SAT 92
[2022-04-07] MEDS: OXYCODONE 5 MG TABLET PO (18:22)
[2022-04-07] MEDS: SENNOSIDES 1 TAB TABLET PO (19:08)
[2022-04-07 20:16] VITALS: TEMP 36; O2SAT 95
--- NOTE | 2022-04-07 21:32 | PC.NURSE ---
PRN: 5mg Oxy admin at 1822 per resident request for 6/10 R shoulder pain. Effective
[2022-04-07 23:00] VITALS: TEMP 36.5; O2SAT 97
[2022-04-08 01:32] VITALS: TEMP 36.5; O2SAT 90
[2022-04-08] MEDS: OMEPRAZOLE 20 MG CAPSULE DR PO (06:57)
[2022-04-08] MEDS: NICOTINE 4 MG GUM BUCCAL ×2 (07:15→16:59)
[2022-04-08] MEDS: ALBUTEROL INHALER 2 PUFF IH ×4 (07:40→19:03)
[2022-04-08] MEDS: FOLIC ACID 800 MCG PO (07:40)
[2022-04-08] MEDS: ASPIRIN 81 MG TABLET EC PO (07:40)
[2022-04-08] MEDS: ACETAMINOPHEN 500 MG TABLET 1000 MG PO ×3 (07:40→19:03)
[2022-04-08] MEDS: VENLAFAXINE HCL ER 37.5 MG CAPSULE PO (07:40)
[2022-04-08] MEDS: glipiZIDE 2.5 MG ER TAB PO (07:40)
[2022-04-08] MEDS: VENLAFAXINE ER 75 MG CAPSULE PO (07:40)
[2022-04-08] MEDS: METOPROLOL SUCCINATE (XL) 50 MG TAB 25 MG PO (07:40)
[2022-04-08] MEDS: CARBOXYMETHYLCELLULOSE (REFRESH PLUS) TEARS 1 DROP EYE-BOTH ×4 (07:41→19:03)
[2022-04-08] MEDS: NON-FORMULARY MEDICATION 1 EACH INH (07:41)
[2022-04-08] MEDS: METFORMIN 1,000 MG TABLET 1000 MG PO ×2 (08:13→17:00)
[2022-04-08] MEDS: POTASSIUM CHLORIDE 10 MEQ CAPSULE ER PO (08:13)
[2022-04-08] MEDS: FUROSEMIDE 40 MG TABLET 60 MG PO (08:13)
[2022-04-08 09:23] VITALS: TEMP 36.9; O2SAT 94
[2022-04-08] MEDS: OXYCODONE 5 MG TABLET PO ×2 (11:48→19:01)
--- NOTE | 2022-04-08 12:57 | PC.NURSE ---
Addendum entered by Rose Brown RN 04/08/22 13:03: She was given Tab Oxycodone 5mg at 1148 with good results. Currently resident resting on her bed . Original Note: Pain management: Resident c/o right shoulder pain and requested for PRN pain medication oxycodone. She rate the pain as 5/10 and informed that Tylenol does not work when she has shoulder pain. She was administered Tab Oxycodone 5mg
[2022-04-08 15:38] VITALS: TEMP 36.9; O2SAT 96
[2022-04-08] MEDS: SENNOSIDES 1 TAB TABLET PO (19:03)
[2022-04-08 23:00] VITALS: TEMP 36.7; O2SAT 94
[2022-04-09] MEDS: NICOTINE 4 MG GUM BUCCAL (07:25)
[2022-04-09] MEDS: OMEPRAZOLE 20 MG CAPSULE DR PO (07:28)
[2022-04-09] MEDS: ACETAMINOPHEN 500 MG TABLET 1000 MG PO ×3 (07:29→19:11)
[2022-04-09] MEDS: glipiZIDE 2.5 MG ER TAB PO (07:29)
[2022-04-09] MEDS: VENLAFAXINE HCL ER 37.5 MG CAPSULE PO (07:29)
[2022-04-09] MEDS: ASPIRIN 81 MG TABLET EC PO (07:29)
[2022-04-09] MEDS: CARBOXYMETHYLCELLULOSE (REFRESH PLUS) TEARS 1 DROP EYE-BOTH ×4 (07:29→19:11)
[2022-04-09] MEDS: METOPROLOL SUCCINATE (XL) 50 MG TAB 25 MG PO (07:29)
[2022-04-09] MEDS: ALBUTEROL INHALER 2 PUFF IH ×4 (07:29→19:11)
[2022-04-09] MEDS: VENLAFAXINE ER 75 MG CAPSULE PO (07:29)
[2022-04-09] MEDS: FOLIC ACID 800 MCG PO (07:29)
[2022-04-09] MEDS: NON-FORMULARY MEDICATION 1 EACH INH (07:29)
[2022-04-09] MEDS: METFORMIN 1,000 MG TABLET 1000 MG PO ×2 (08:11→17:08)
[2022-04-09] MEDS: FUROSEMIDE 40 MG TABLET 60 MG PO (08:11)
[2022-04-09] MEDS: POTASSIUM CHLORIDE 10 MEQ CAPSULE ER PO (08:11)
--- NOTE | 2022-04-09 09:28 | PC.NURSE ---
Addendum entered by Rose Brown RN 04/09/22 12:49: Not results from the Milk of Mag and resident requested prune juice and it was given at 1240. Original Note: Constipated : Resident c/o constipated and request for Milk of Mag. She informed that even though she had BM on the 04/08/22,it was not complete and she feel plugged up .Standing order of Milk of Mag given at 0930.
[2022-04-09 09:37] VITALS: TEMP 36.6; O2SAT 94
[2022-04-09] MEDS: MAGNESIUM HYDROXIDE 30 ML ORAL.SUSP PO (09:37)
[2022-04-09 16:05] VITALS: TEMP 36.8; O2SAT 94
[2022-04-09] MEDS: OXYCODONE 5 MG TABLET PO (19:10)
[2022-04-09] MEDS: SENNOSIDES 1 TAB TABLET PO (19:11)
[2022-04-09 23:00] VITALS: TEMP 36.4; O2SAT 94
[2022-04-10] MEDS: OMEPRAZOLE 20 MG CAPSULE DR PO (06:34)
[2022-04-10] MEDS: NICOTINE 4 MG GUM BUCCAL ×2 (07:05→17:30)
[2022-04-10] MEDS: METOPROLOL SUCCINATE (XL) 50 MG TAB 25 MG PO (07:07)
[2022-04-10] MEDS: glipiZIDE 2.5 MG ER TAB PO (07:07)
[2022-04-10] MEDS: CARBOXYMETHYLCELLULOSE (REFRESH PLUS) TEARS 1 DROP EYE-BOTH ×4 (07:07→19:35)
[2022-04-10] MEDS: NON-FORMULARY MEDICATION 1 EACH INH (07:07)
[2022-04-10] MEDS: FOLIC ACID 800 MCG PO (07:07)
[2022-04-10] MEDS: ACETAMINOPHEN 500 MG TABLET 1000 MG PO ×3 (07:07→19:35)
[2022-04-10] MEDS: VENLAFAXINE HCL ER 37.5 MG CAPSULE PO (07:07)
[2022-04-10] MEDS: VENLAFAXINE ER 75 MG CAPSULE PO (07:07)
[2022-04-10] MEDS: ASPIRIN 81 MG TABLET EC PO (07:07)
[2022-04-10] MEDS: ALBUTEROL INHALER 2 PUFF IH ×4 (07:07→19:35)
[2022-04-10] MEDS: FUROSEMIDE 40 MG TABLET 60 MG PO (07:53)
[2022-04-10] MEDS: POTASSIUM CHLORIDE 10 MEQ CAPSULE ER PO (07:53)
[2022-04-10] MEDS: METFORMIN 1,000 MG TABLET 1000 MG PO ×2 (07:53→17:36)
[2022-04-10] MEDS: OXYCODONE 5 MG TABLET PO (09:26)
[2022-04-10 09:31] VITALS: TEMP 36.4; O2SAT 94
--- NOTE | 2022-04-10 11:07 | PC.NURSE ---
COVID OUTBREAK TESTING Resident provided verbal consent for outbreak COVID testing. Resident is currently asymptomatic.? Resident/family will be notified only if resident is positive.
[2022-04-10 12:35] LABS: SARS PCR* Negative SARS-CoV-2 (Negative)
[2022-04-10 16:58] VITALS: TEMP 36.9; O2SAT 94
[2022-04-10] MEDS: SENNOSIDES 1 TAB TABLET PO (19:35)
[2022-04-10 23:00] VITALS: TEMP 36.6; O2SAT 92
[2022-04-11] MEDS: OMEPRAZOLE 20 MG CAPSULE DR PO (07:05)
[2022-04-11] MEDS: ALBUTEROL INHALER 2 PUFF IH ×4 (07:05→19:38)
[2022-04-11] MEDS: ACETAMINOPHEN 500 MG TABLET 1000 MG PO ×3 (07:05→19:38)
[2022-04-11] MEDS: METOPROLOL SUCCINATE (XL) 50 MG TAB 25 MG PO (07:05)
[2022-04-11] MEDS: VENLAFAXINE HCL ER 37.5 MG CAPSULE PO (07:05)
[2022-04-11] MEDS: FOLIC ACID 800 MCG PO (07:05)
[2022-04-11] MEDS: ASPIRIN 81 MG TABLET EC PO (07:05)
[2022-04-11] MEDS: VENLAFAXINE ER 75 MG CAPSULE PO (07:05)
[2022-04-11] MEDS: glipiZIDE 2.5 MG ER TAB PO (07:05)
[2022-04-11] MEDS: NON-FORMULARY MEDICATION 1 EACH INH (07:06)
[2022-04-11] MEDS: CARBOXYMETHYLCELLULOSE (REFRESH PLUS) TEARS 1 DROP EYE-BOTH ×4 (07:06→19:38)
[2022-04-11] MEDS: FUROSEMIDE 40 MG TABLET 60 MG PO (07:57)
[2022-04-11] MEDS: METFORMIN 1,000 MG TABLET 1000 MG PO ×2 (07:57→19:37)
[2022-04-11] MEDS: POTASSIUM CHLORIDE 10 MEQ CAPSULE ER PO (07:57)
[2022-04-11 12:57] VITALS: TEMP 36.4; O2SAT 94
[2022-04-11] MEDS: OXYCODONE 5 MG TABLET PO (19:38)
[2022-04-11] MEDS: SENNOSIDES 1 TAB TABLET PO (19:38)
[2022-04-11 21:12] VITALS: TEMP 36.8; O2SAT 95
[2022-04-11 23:00] VITALS: TEMP 36.6; O2SAT 95
--- NOTE | 2022-04-12 00:22 | PC.NURSE ---
WEEKLY CHARTING - WEEK 3 (Toileting & Skin): Vital signs, summary of weekly skin assessment, and comprehensive/temporary care plans, reviewed. No changes made to care plans at this time. Independent with toileting tasks, and continent of bowel/bladder. Conversely, there has been incidents of bowel incontinency, reported, when resident could not make it to the toilet on time due to diarrhea, which frustrates her when that happens. Resident wears pull-ups, which is supplied by staff, but has the ability to request re-stock when supply runs out. Skin: Findings from 04/06/22 on head-to-toe skin assessment summary conducted on , indicates no new skin integrity issue or concerns noted at that time.
[2022-04-12] MEDS: OMEPRAZOLE 20 MG CAPSULE DR PO (06:54)
[2022-04-12] MEDS: ALBUTEROL INHALER 2 PUFF IH ×4 (07:06→21:38)
[2022-04-12] MEDS: VENLAFAXINE HCL ER 37.5 MG CAPSULE PO (07:06)
[2022-04-12] MEDS: METOPROLOL SUCCINATE (XL) 50 MG TAB 25 MG PO (07:06)
[2022-04-12] MEDS: ACETAMINOPHEN 500 MG TABLET 1000 MG PO ×3 (07:06→21:38)
[2022-04-12] MEDS: glipiZIDE 2.5 MG ER TAB PO (07:06)
[2022-04-12] MEDS: ASPIRIN 81 MG TABLET EC PO (07:06)
[2022-04-12] MEDS: VENLAFAXINE ER 75 MG CAPSULE PO (07:06)
[2022-04-12] MEDS: FOLIC ACID 800 MCG PO (07:07)
[2022-04-12] MEDS: CARBOXYMETHYLCELLULOSE (REFRESH PLUS) TEARS 1 DROP EYE-BOTH ×4 (07:07→21:38)
[2022-04-12] MEDS: NON-FORMULARY MEDICATION 1 EACH INH (07:07)
[2022-04-12] MEDS: NICOTINE 4 MG GUM BUCCAL ×2 (07:30→17:20)
[2022-04-12] MEDS: FUROSEMIDE 40 MG TABLET 60 MG PO (07:54)
[2022-04-12] MEDS: METFORMIN 1,000 MG TABLET 1000 MG PO ×2 (07:54→17:20)
[2022-04-12] MEDS: POTASSIUM CHLORIDE 10 MEQ CAPSULE ER PO (07:54)
[2022-04-12 09:01] VITALS: TEMP 36.9; O2SAT 95
--- NOTE | 2022-04-12 10:48 | PC.NURSE ---
Week 3: Toileting comprehensive and temporary care plan reviewed. No changes made nothing added to temporary care plan. Resident is continent of bowel and bladder, able to use the bathroom independently. Pads, clothing, bryanna care done by self, will ask assistance when needed. Vitals reviewed no concerns. Skin is clear and intact no concern at this time. Skin is routinely check on bath day. Res able to report any skin issue and concern.
[2022-04-12 15:00] VITALS: TEMP 36.5; O2SAT 96
[2022-04-12] MEDS: SENNOSIDES 1 TAB TABLET PO (21:38)
[2022-04-12 23:39] VITALS: TEMP 36.3; O2SAT 96
[2022-04-13] MEDS: NICOTINE 4 MG GUM BUCCAL ×2 (07:32→17:08)
[2022-04-13] MEDS: OMEPRAZOLE 20 MG CAPSULE DR PO (07:32)
[2022-04-13] MEDS: ACETAMINOPHEN 500 MG TABLET 1000 MG PO ×3 (07:32→19:36)
[2022-04-13] MEDS: ASPIRIN 81 MG TABLET EC PO (07:33)
[2022-04-13] MEDS: METOPROLOL SUCCINATE (XL) 50 MG TAB 25 MG PO (07:33)
[2022-04-13] MEDS: ALBUTEROL INHALER 2 PUFF IH ×4 (07:33→19:36)
[2022-04-13] MEDS: VENLAFAXINE HCL ER 37.5 MG CAPSULE PO (07:33)
[2022-04-13] MEDS: FOLIC ACID 800 MCG PO (07:33)
[2022-04-13] MEDS: CARBOXYMETHYLCELLULOSE (REFRESH PLUS) TEARS 1 DROP EYE-BOTH ×4 (07:33→19:36)
[2022-04-13] MEDS: VENLAFAXINE ER 75 MG CAPSULE PO (07:33)
[2022-04-13] MEDS: NON-FORMULARY MEDICATION 1 EACH INH (07:33)
[2022-04-13] MEDS: glipiZIDE 2.5 MG ER TAB PO (08:46)
[2022-04-13] MEDS: METFORMIN 1,000 MG TABLET 1000 MG PO ×2 (08:47→17:08)
[2022-04-13] MEDS: POTASSIUM CHLORIDE 10 MEQ CAPSULE ER PO (08:47)
[2022-04-13] MEDS: FUROSEMIDE 40 MG TABLET 60 MG PO (08:47)
[2022-04-13 10:53] VITALS: BP 112/73; PULSE 88; RESP 20; TEMP 36.7; O2SAT 93; BMI 21.2
[2022-04-13] MEDS: NON-FORMULARY MEDICATION 1 EACH SUBCUT (11:23)
[2022-04-13] MEDS: SENNOSIDES 1 TAB TABLET PO (19:36)
[2022-04-13 21:08] VITALS: TEMP 36.8; O2SAT 93
[2022-04-13 23:00] VITALS: TEMP 36.6; O2SAT 94
[2022-04-14] MEDS: OMEPRAZOLE 20 MG CAPSULE DR PO (06:42)
[2022-04-14] MEDS: NICOTINE 4 MG GUM BUCCAL ×2 (07:00→16:16)
[2022-04-14] MEDS: ACETAMINOPHEN 500 MG TABLET 1000 MG PO ×3 (07:02→19:51)
[2022-04-14] MEDS: VENLAFAXINE ER 75 MG CAPSULE PO (07:02)
[2022-04-14] MEDS: ALBUTEROL INHALER 2 PUFF IH ×4 (07:02→19:51)
[2022-04-14] MEDS: NON-FORMULARY MEDICATION 1 EACH INH (07:03)
[2022-04-14] MEDS: VENLAFAXINE HCL ER 37.5 MG CAPSULE PO (07:03)
[2022-04-14] MEDS: METOPROLOL SUCCINATE (XL) 50 MG TAB 25 MG PO (07:03)
[2022-04-14] MEDS: CARBOXYMETHYLCELLULOSE (REFRESH PLUS) TEARS 1 DROP EYE-BOTH ×4 (07:03→19:51)
[2022-04-14] MEDS: glipiZIDE 2.5 MG ER TAB PO (08:33)
[2022-04-14] MEDS: FUROSEMIDE 40 MG TABLET 60 MG PO (08:33)
[2022-04-14] MEDS: ASPIRIN 81 MG TABLET EC PO (08:33)
[2022-04-14] MEDS: METFORMIN 1,000 MG TABLET 1000 MG PO ×2 (08:33→17:03)
[2022-04-14] MEDS: POTASSIUM CHLORIDE 10 MEQ CAPSULE ER PO (08:33)
[2022-04-14 10:37] VITALS: TEMP 36.8
[2022-04-14] MEDS: OXYCODONE 5 MG TABLET PO (19:51)
[2022-04-14] MEDS: SENNOSIDES 1 TAB TABLET PO (19:51)
[2022-04-14 21:47] VITALS: TEMP 37.2; O2SAT 94
[2022-04-15 01:03] VITALS: TEMP 37.2; O2SAT 93
[2022-04-15] MEDS: OMEPRAZOLE 20 MG CAPSULE DR PO (06:49)
[2022-04-15] MEDS: NICOTINE 4 MG GUM BUCCAL (06:56)
[2022-04-15 07:00] VITALS: TEMP 36.8; O2SAT 94
[2022-04-15] MEDS: ACETAMINOPHEN 500 MG TABLET 1000 MG PO ×3 (07:07→19:28)
[2022-04-15] MEDS: FUROSEMIDE 40 MG TABLET 60 MG PO (07:08)
[2022-04-15] MEDS: METFORMIN 1,000 MG TABLET 1000 MG PO ×2 (07:08→17:10)
[2022-04-15] MEDS: ASPIRIN 81 MG TABLET EC PO (07:08)
[2022-04-15] MEDS: METOPROLOL SUCCINATE (XL) 50 MG TAB 25 MG PO (07:08)
[2022-04-15] MEDS: ALBUTEROL INHALER 2 PUFF IH ×4 (07:08→19:28)
[2022-04-15] MEDS: glipiZIDE 2.5 MG ER TAB PO (07:08)
[2022-04-15] MEDS: FOLIC ACID 800 MCG PO (07:08)
[2022-04-15] MEDS: VENLAFAXINE HCL ER 37.5 MG CAPSULE PO (07:08)
[2022-04-15] MEDS: VENLAFAXINE ER 75 MG CAPSULE PO (07:08)
[2022-04-15] MEDS: NON-FORMULARY MEDICATION 1 EACH INH (07:09)
[2022-04-15] MEDS: POTASSIUM CHLORIDE 10 MEQ CAPSULE ER PO (07:09)
[2022-04-15] MEDS: CARBOXYMETHYLCELLULOSE (REFRESH PLUS) TEARS 1 DROP EYE-BOTH ×4 (07:09→19:28)
[2022-04-15 18:22] VITALS: TEMP 37.1; O2SAT 95
[2022-04-15] MEDS: SENNOSIDES 1 TAB TABLET PO (19:28)
[2022-04-15] MEDS: OXYCODONE 5 MG TABLET PO (19:28)
[2022-04-16 00:10] VITALS: TEMP 36.9; O2SAT 94
[2022-04-16] MEDS: OMEPRAZOLE 20 MG CAPSULE DR PO (06:52)
[2022-04-16] MEDS: NICOTINE 4 MG GUM BUCCAL (06:56)
[2022-04-16 07:00] VITALS: TEMP 36.4; O2SAT 98
[2022-04-16] MEDS: METFORMIN 1,000 MG TABLET 1000 MG PO ×2 (07:02→19:25)
[2022-04-16] MEDS: METOPROLOL SUCCINATE (XL) 50 MG TAB 25 MG PO (07:02)
[2022-04-16] MEDS: ACETAMINOPHEN 500 MG TABLET 1000 MG PO ×3 (07:02→19:26)
[2022-04-16] MEDS: ALBUTEROL INHALER 2 PUFF IH ×4 (07:02→19:26)
[2022-04-16] MEDS: FUROSEMIDE 40 MG TABLET 60 MG PO (07:02)
[2022-04-16] MEDS: FOLIC ACID 800 MCG PO (07:02)
[2022-04-16] MEDS: ASPIRIN 81 MG TABLET EC PO (07:02)
[2022-04-16] MEDS: glipiZIDE 2.5 MG ER TAB PO (07:02)
[2022-04-16] MEDS: VENLAFAXINE HCL ER 37.5 MG CAPSULE PO (07:02)
[2022-04-16] MEDS: VENLAFAXINE ER 75 MG CAPSULE PO (07:02)
[2022-04-16] MEDS: POTASSIUM CHLORIDE 10 MEQ CAPSULE ER PO (07:03)
[2022-04-16] MEDS: CARBOXYMETHYLCELLULOSE (REFRESH PLUS) TEARS 1 DROP EYE-BOTH ×4 (07:03→19:26)
[2022-04-16] MEDS: NON-FORMULARY MEDICATION 1 EACH INH (07:03)
[2022-04-16] MEDS: SENNOSIDES 1 TAB TABLET PO (19:26)
[2022-04-16 21:27] VITALS: TEMP 36.6; O2SAT 93
[2022-04-16 23:00] VITALS: TEMP 36.6; O2SAT 94
[2022-04-17] MEDS: METOPROLOL SUCCINATE (XL) 50 MG TAB 25 MG PO (07:08)
[2022-04-17] MEDS: FOLIC ACID 800 MCG PO (07:08)
[2022-04-17] MEDS: ALBUTEROL INHALER 2 PUFF IH ×4 (07:08→19:18)
[2022-04-17] MEDS: ACETAMINOPHEN 500 MG TABLET 1000 MG PO ×3 (07:08→19:18)
[2022-04-17] MEDS: VENLAFAXINE ER 75 MG CAPSULE PO (07:08)
[2022-04-17] MEDS: VENLAFAXINE HCL ER 37.5 MG CAPSULE PO (07:08)
[2022-04-17] MEDS: OMEPRAZOLE 20 MG CAPSULE DR PO (07:08)
[2022-04-17] MEDS: NON-FORMULARY MEDICATION 1 EACH INH (07:09)
[2022-04-17] MEDS: CARBOXYMETHYLCELLULOSE (REFRESH PLUS) TEARS 1 DROP EYE-BOTH ×4 (07:09→19:18)
[2022-04-17] MEDS: NICOTINE 4 MG GUM BUCCAL ×2 (07:14→16:28)
[2022-04-17] MEDS: glipiZIDE 2.5 MG ER TAB PO (08:39)
[2022-04-17] MEDS: ASPIRIN 81 MG TABLET EC PO (08:39)
[2022-04-17] MEDS: POTASSIUM CHLORIDE 10 MEQ CAPSULE ER PO (08:40)
[2022-04-17] MEDS: METFORMIN 1,000 MG TABLET 1000 MG PO ×2 (08:40→17:38)
[2022-04-17] MEDS: FUROSEMIDE 40 MG TABLET 60 MG PO (08:40)
[2022-04-17 10:46] VITALS: TEMP 36.6; O2SAT 95
--- NOTE | 2022-04-17 11:45 | PC.NURSE ---
COVID OUTBREAK TESTING Resident provided verbal consent for outbreak COVID testing. Resident is currently asymptomatic.? Resident/family will be notified only if resident is positive.
[2022-04-17 13:45] LABS: SARS PCR* Negative SARS-CoV-2 (Negative)
[2022-04-17 15:00] VITALS: TEMP 36.7; O2SAT 96
[2022-04-17] MEDS: SENNOSIDES 1 TAB TABLET PO (19:19)
[2022-04-17 23:00] VITALS: TEMP 36.5; O2SAT 90
[2022-04-18] MEDS: OMEPRAZOLE 20 MG CAPSULE DR PO (07:03)
[2022-04-18] MEDS: NICOTINE 4 MG GUM BUCCAL (07:03)
[2022-04-18] MEDS: ACETAMINOPHEN 500 MG TABLET 1000 MG PO ×3 (08:11→19:55)
[2022-04-18] MEDS: ALBUTEROL INHALER 2 PUFF IH ×4 (08:11→19:55)
[2022-04-18] MEDS: NON-FORMULARY MEDICATION 1 EACH INH (08:12)
[2022-04-18] MEDS: FOLIC ACID 800 MCG PO (08:12)
[2022-04-18] MEDS: CARBOXYMETHYLCELLULOSE (REFRESH PLUS) TEARS 1 DROP EYE-BOTH ×4 (08:12→19:55)
[2022-04-18] MEDS: METOPROLOL SUCCINATE (XL) 50 MG TAB 25 MG PO (08:12)
[2022-04-18] MEDS: VENLAFAXINE HCL ER 37.5 MG CAPSULE PO (08:43)
[2022-04-18] MEDS: ASPIRIN 81 MG TABLET EC PO (08:43)
[2022-04-18] MEDS: FUROSEMIDE 40 MG TABLET 60 MG PO (08:43)
[2022-04-18] MEDS: POTASSIUM CHLORIDE 10 MEQ CAPSULE ER PO (08:43)
[2022-04-18] MEDS: VENLAFAXINE ER 75 MG CAPSULE PO (08:43)
[2022-04-18] MEDS: METFORMIN 1,000 MG TABLET 1000 MG PO ×2 (08:43→19:55)
[2022-04-18] MEDS: glipiZIDE 2.5 MG ER TAB PO (08:43)
[2022-04-18 10:16] VITALS: TEMP 36.8; O2SAT 97
[2022-04-18] MEDS: SENNOSIDES 1 TAB TABLET PO (19:55)
[2022-04-18 21:42] VITALS: TEMP 36.6; O2SAT 95
[2022-04-18 23:00] VITALS: TEMP 37.1; O2SAT 92
--- NOTE | 2022-04-19 03:51 | PC.NURSE ---
WEEKLY CHARTING - WEEK 4: Vital signs reviewed - no concerns. Temporary and comprehensive care plan reviewed - no change. No documented behaviors in the last month. Receives venlafaxine 112.5mg daily with no noted adverse effects. No changes in mood, behavior, or sleep pattern.? Mild hearing impairment. Visual impairment is corrected with glasses. Cognitively intact. No medication changes. Health condition stable.
[2022-04-19] MEDS: OMEPRAZOLE 20 MG CAPSULE DR PO (06:47)
[2022-04-19 07:00] VITALS: TEMP 36.5; O2SAT 93
--- NOTE | 2022-04-19 07:07 | PC.NURSE ---
Week #4: Comprehensive and temporary care plan reviewed. No changes made. Nothing added to temporary care plan. No changes noted in communication, hearing, vision, or orientation. She does communicate needs. Is [place] in some environment. No device used. Speak and adjust tone of voice. Vision impairment corrected by glasses. Cognition intact. Chronic health condition stable. Vital signs reviewed,no concerns. Is able to self administer medications. Nurse may leave meds and check they are taken. Mood/Behavior: No issues the last month. Continues on Effexor 112.5mg daily with no adverse effects noted. No change in medication.
[2022-04-19] MEDS: ACETAMINOPHEN 500 MG TABLET 1000 MG PO ×3 (07:12→19:26)
[2022-04-19] MEDS: FOLIC ACID 800 MCG PO (07:12)
[2022-04-19] MEDS: METOPROLOL SUCCINATE (XL) 50 MG TAB 25 MG PO (07:12)
[2022-04-19] MEDS: ALBUTEROL INHALER 2 PUFF IH ×4 (07:12→19:26)
[2022-04-19] MEDS: VENLAFAXINE ER 75 MG CAPSULE PO (07:12)
[2022-04-19] MEDS: VENLAFAXINE HCL ER 37.5 MG CAPSULE PO (07:12)
[2022-04-19] MEDS: NON-FORMULARY MEDICATION 1 EACH INH (07:13)
[2022-04-19] MEDS: CARBOXYMETHYLCELLULOSE (REFRESH PLUS) TEARS 1 DROP EYE-BOTH ×4 (07:13→19:26)
[2022-04-19] MEDS: NICOTINE 4 MG GUM BUCCAL (07:13)
[2022-04-19] MEDS: POTASSIUM CHLORIDE 10 MEQ CAPSULE ER PO (08:28)
[2022-04-19] MEDS: ASPIRIN 81 MG TABLET EC PO (08:28)
[2022-04-19] MEDS: glipiZIDE 2.5 MG ER TAB PO (08:28)
[2022-04-19] MEDS: FUROSEMIDE 40 MG TABLET 60 MG PO (08:28)
[2022-04-19] MEDS: METFORMIN 1,000 MG TABLET 1000 MG PO ×2 (08:28→17:42)
[2022-04-19 15:00] VITALS: TEMP 36.5; O2SAT 96
[2022-04-19] MEDS: OXYCODONE 5 MG TABLET PO (18:27)
[2022-04-19] MEDS: SENNOSIDES 1 TAB TABLET PO (19:26)
[2022-04-19 23:00] VITALS: TEMP 36.7; O2SAT 90
[2022-04-20] MEDS: OMEPRAZOLE 20 MG CAPSULE DR PO (06:43)
[2022-04-20] MEDS: VENLAFAXINE ER 75 MG CAPSULE PO (07:01)
[2022-04-20] MEDS: ALBUTEROL INHALER 2 PUFF IH ×4 (07:01→19:21)
[2022-04-20] MEDS: ACETAMINOPHEN 500 MG TABLET 1000 MG PO ×3 (07:01→19:21)
[2022-04-20] MEDS: NON-FORMULARY MEDICATION 1 EACH INH (07:02)
[2022-04-20] MEDS: CARBOXYMETHYLCELLULOSE (REFRESH PLUS) TEARS 1 DROP EYE-BOTH ×4 (07:02→19:21)
[2022-04-20] MEDS: FOLIC ACID 800 MCG PO (07:02)
[2022-04-20] MEDS: METOPROLOL SUCCINATE (XL) 50 MG TAB 25 MG PO (07:02)
[2022-04-20] MEDS: VENLAFAXINE HCL ER 37.5 MG CAPSULE PO (07:02)
[2022-04-20] MEDS: NICOTINE 4 MG GUM BUCCAL (07:03)
[2022-04-20] MEDS: glipiZIDE 2.5 MG ER TAB PO (08:42)
[2022-04-20] MEDS: ASPIRIN 81 MG TABLET EC PO (08:42)
[2022-04-20] MEDS: FUROSEMIDE 40 MG TABLET 60 MG PO (08:42)
[2022-04-20] MEDS: POTASSIUM CHLORIDE 10 MEQ CAPSULE ER PO (08:42)
[2022-04-20] MEDS: METFORMIN 1,000 MG TABLET 1000 MG PO ×2 (08:42→17:19)
[2022-04-20 10:26] VITALS: TEMP 36.2; O2SAT 94
[2022-04-20 10:41] VITALS: BP 118/63; PULSE 97; RESP 18; TEMP 36.2; O2SAT 94
[2022-04-20 10:42] VITALS: BMI 21.1
[2022-04-20] MEDS: OXYCODONE 5 MG TABLET PO (19:21)
[2022-04-20] MEDS: SENNOSIDES 1 TAB TABLET PO (19:21)
[2022-04-20 23:00] VITALS: TEMP 36.4; O2SAT 90
[2022-04-21] MEDS: OMEPRAZOLE 20 MG CAPSULE DR PO (06:59)
[2022-04-21 07:00] VITALS: TEMP 36.7; O2SAT 96
[2022-04-21] MEDS: NICOTINE 4 MG GUM BUCCAL ×2 (07:00→16:49)
[2022-04-21] MEDS: VENLAFAXINE ER 75 MG CAPSULE PO (07:19)
[2022-04-21] MEDS: glipiZIDE 2.5 MG ER TAB PO (07:19)
[2022-04-21] MEDS: ASPIRIN 81 MG TABLET EC PO (07:19)
[2022-04-21] MEDS: ALBUTEROL INHALER 2 PUFF IH ×4 (07:19→19:16)
[2022-04-21] MEDS: ACETAMINOPHEN 500 MG TABLET 1000 MG PO ×3 (07:19→19:16)
[2022-04-21] MEDS: VENLAFAXINE HCL ER 37.5 MG CAPSULE PO (07:19)
[2022-04-21] MEDS: FUROSEMIDE 40 MG TABLET 60 MG PO (07:20)
[2022-04-21] MEDS: NON-FORMULARY MEDICATION 1 EACH INH (07:20)
[2022-04-21] MEDS: POTASSIUM CHLORIDE 10 MEQ CAPSULE ER PO (07:20)
[2022-04-21] MEDS: CARBOXYMETHYLCELLULOSE (REFRESH PLUS) TEARS 1 DROP EYE-BOTH ×4 (07:20→19:16)
[2022-04-21] MEDS: METOPROLOL SUCCINATE (XL) 50 MG TAB 25 MG PO (07:20)
[2022-04-21] MEDS: METFORMIN 1,000 MG TABLET 1000 MG PO ×2 (07:20→16:49)
--- NOTE | 2022-04-21 13:55 | PC.NURSE ---
OUt of Facility:? Resident out for lunch with her son Cory and his at 1245.. She will be back at 1700. No med sent with her.
[2022-04-21] MEDS: SENNOSIDES 1 TAB TABLET PO (19:16)
[2022-04-21 21:17] VITALS: TEMP 36.8; O2SAT 96
[2022-04-21 23:00] VITALS: TEMP 36.4; O2SAT 94
[2022-04-22] MEDS: NICOTINE 4 MG GUM BUCCAL ×2 (07:30→17:17)
[2022-04-22] MEDS: ALBUTEROL INHALER 2 PUFF IH ×4 (07:34→19:20)
[2022-04-22] MEDS: OMEPRAZOLE 20 MG CAPSULE DR PO (07:34)
[2022-04-22] MEDS: ACETAMINOPHEN 500 MG TABLET 1000 MG PO ×3 (07:34→19:20)
[2022-04-22] MEDS: VENLAFAXINE HCL ER 37.5 MG CAPSULE PO (07:35)
[2022-04-22] MEDS: VENLAFAXINE ER 75 MG CAPSULE PO (07:35)
[2022-04-22] MEDS: ASPIRIN 81 MG TABLET EC PO (07:35)
[2022-04-22] MEDS: FOLIC ACID 800 MCG PO (07:35)
[2022-04-22] MEDS: glipiZIDE 2.5 MG ER TAB PO (07:36)
[2022-04-22] MEDS: METOPROLOL SUCCINATE (XL) 50 MG TAB 25 MG PO (07:37)
[2022-04-22] MEDS: CARBOXYMETHYLCELLULOSE (REFRESH PLUS) TEARS 1 DROP EYE-BOTH ×4 (07:37→19:20)
[2022-04-22] MEDS: NON-FORMULARY MEDICATION 1 EACH INH (07:37)
[2022-04-22] MEDS: POTASSIUM CHLORIDE 10 MEQ CAPSULE ER PO (08:17)
[2022-04-22] MEDS: FUROSEMIDE 40 MG TABLET 60 MG PO (08:17)
[2022-04-22] MEDS: METFORMIN 1,000 MG TABLET 1000 MG PO ×2 (08:17→17:17)
[2022-04-22 11:06] VITALS: TEMP 36.6; O2SAT 96
[2022-04-22 16:41] VITALS: TEMP 36.7; O2SAT 97
[2022-04-22] MEDS: SENNOSIDES 1 TAB TABLET PO (19:20)
[2022-04-22 23:00] VITALS: TEMP 36.3; O2SAT 91
[2022-04-23] MEDS: OMEPRAZOLE 20 MG CAPSULE DR PO (06:57)
[2022-04-23] MEDS: ASPIRIN 81 MG TABLET EC PO (07:12)
[2022-04-23] MEDS: ALBUTEROL INHALER 2 PUFF IH ×4 (07:12→19:46)
[2022-04-23] MEDS: ACETAMINOPHEN 500 MG TABLET 1000 MG PO ×3 (07:12→19:46)
[2022-04-23] MEDS: VENLAFAXINE ER 75 MG CAPSULE PO (07:17)
[2022-04-23] MEDS: VENLAFAXINE HCL ER 37.5 MG CAPSULE PO (07:18)
[2022-04-23] MEDS: NICOTINE 4 MG GUM BUCCAL ×2 (07:18→17:24)
[2022-04-23] MEDS: glipiZIDE 2.5 MG ER TAB PO (07:18)
[2022-04-23] MEDS: METOPROLOL SUCCINATE (XL) 50 MG TAB 25 MG PO (07:18)
[2022-04-23] MEDS: CARBOXYMETHYLCELLULOSE (REFRESH PLUS) TEARS 1 DROP EYE-BOTH ×4 (07:18→19:46)
[2022-04-23] MEDS: FOLIC ACID 800 MCG PO (07:18)
[2022-04-23] MEDS: NON-FORMULARY MEDICATION 1 EACH INH (07:18)
[2022-04-23] MEDS: METFORMIN 1,000 MG TABLET 1000 MG PO ×2 (08:13→17:24)
[2022-04-23] MEDS: POTASSIUM CHLORIDE 10 MEQ CAPSULE ER PO (08:13)
[2022-04-23] MEDS: FUROSEMIDE 40 MG TABLET 60 MG PO (08:13)
[2022-04-23 09:50] VITALS: TEMP 36.3; O2SAT 94
[2022-04-23 16:26] VITALS: TEMP 36.4; O2SAT 94
[2022-04-23] MEDS: SENNOSIDES 1 TAB TABLET PO (19:46)
[2022-04-23 21:38] VITALS: TEMP 36.9; O2SAT 96
[2022-04-24] MEDS: OMEPRAZOLE 20 MG CAPSULE DR PO (06:23)
[2022-04-24] MEDS: NICOTINE 4 MG GUM BUCCAL (06:31)
[2022-04-24 07:00] VITALS: TEMP 36.5; O2SAT 94
[2022-04-24] MEDS: ACETAMINOPHEN 500 MG TABLET 1000 MG PO ×3 (07:11→19:29)
[2022-04-24] MEDS: VENLAFAXINE HCL ER 37.5 MG CAPSULE PO (07:11)
[2022-04-24] MEDS: VENLAFAXINE ER 75 MG CAPSULE PO (07:11)
[2022-04-24] MEDS: glipiZIDE 2.5 MG ER TAB PO (07:11)
[2022-04-24] MEDS: ALBUTEROL INHALER 2 PUFF IH ×4 (07:11→19:29)
[2022-04-24] MEDS: FUROSEMIDE 40 MG TABLET 60 MG PO (07:11)
[2022-04-24] MEDS: ASPIRIN 81 MG TABLET EC PO (07:11)
[2022-04-24] MEDS: METOPROLOL SUCCINATE (XL) 50 MG TAB 25 MG PO (07:12)
[2022-04-24] MEDS: FOLIC ACID 800 MCG PO (07:12)
[2022-04-24] MEDS: METFORMIN 1,000 MG TABLET 1000 MG PO ×2 (07:12→17:43)
[2022-04-24] MEDS: NON-FORMULARY MEDICATION 1 EACH INH (07:13)
[2022-04-24] MEDS: CARBOXYMETHYLCELLULOSE (REFRESH PLUS) TEARS 1 DROP EYE-BOTH ×4 (07:57→19:29)
[2022-04-24] MEDS: POTASSIUM CHLORIDE 10 MEQ CAPSULE ER PO (08:43)
--- NOTE | 2022-04-24 10:00 | PC.NURSE ---
COVID OUTBREAK TESTING Resident gave verbal consent for outbreak COVID testing. Resident is currently asymptomatic.? Resident/family will be notified only if resident is positive.
[2022-04-24 11:51] LABS: SARS PCR* Negative SARS-CoV-2 (Negative)
[2022-04-24 15:00] VITALS: TEMP 36.7; O2SAT 94
[2022-04-24] MEDS: SENNOSIDES 1 TAB TABLET PO (19:29)
[2022-04-24 23:00] VITALS: TEMP 36.5; O2SAT 90
[2022-04-25] MEDS: OXYCODONE 5 MG TABLET PO ×2 (02:47→19:53)
[2022-04-25] MEDS: OMEPRAZOLE 20 MG CAPSULE DR PO (06:38)
[2022-04-25 07:00] VITALS: TEMP 36.9; O2SAT 95
[2022-04-25] MEDS: ALBUTEROL INHALER 2 PUFF IH ×4 (07:10→19:52)
[2022-04-25] MEDS: ACETAMINOPHEN 500 MG TABLET 1000 MG PO ×3 (07:10→19:52)
[2022-04-25] MEDS: METOPROLOL SUCCINATE (XL) 50 MG TAB 25 MG PO (07:11)
[2022-04-25] MEDS: ASPIRIN 81 MG TABLET EC PO (07:11)
[2022-04-25] MEDS: VENLAFAXINE ER 75 MG CAPSULE PO (07:11)
[2022-04-25] MEDS: FUROSEMIDE 40 MG TABLET 60 MG PO (07:11)
[2022-04-25] MEDS: FOLIC ACID 800 MCG PO (07:11)
[2022-04-25] MEDS: glipiZIDE 2.5 MG ER TAB PO (07:11)
[2022-04-25] MEDS: METFORMIN 1,000 MG TABLET 1000 MG PO ×2 (07:11→18:57)
[2022-04-25] MEDS: VENLAFAXINE HCL ER 37.5 MG CAPSULE PO (07:11)
[2022-04-25] MEDS: CARBOXYMETHYLCELLULOSE (REFRESH PLUS) TEARS 1 DROP EYE-BOTH ×4 (07:12→19:52)
[2022-04-25] MEDS: POTASSIUM CHLORIDE 10 MEQ CAPSULE ER PO (07:12)
[2022-04-25] MEDS: NON-FORMULARY MEDICATION 1 EACH INH (07:12)
[2022-04-25] MEDS: SENNOSIDES 1 TAB TABLET PO (19:52)
[2022-04-25 21:34] VITALS: TEMP 37; O2SAT 94
[2022-04-25 23:54] VITALS: TEMP 36.8; O2SAT 93
--- NOTE | 2022-04-26 01:48 | PC.NURSE ---
Weekly Charting week 1: Temporary and comprehensive care plan reviewed, no changes made. Vitals within normal, no concerns. ADLs: Rita is independent with dressing, grooming, and personal hygiene, requires supervision on bathing. Rita will asked staff assistance to braid her hair. PAIN: Rita has chronic shoulder pain, which managed by PRN oxycodone. Rita ate independently after set up only.
[2022-04-26] MEDS: OMEPRAZOLE 20 MG CAPSULE DR PO (06:33)
[2022-04-26 07:00] VITALS: TEMP 36.6; O2SAT 97
[2022-04-26] MEDS: ACETAMINOPHEN 500 MG TABLET 1000 MG PO ×3 (07:02→19:24)
[2022-04-26] MEDS: METFORMIN 1,000 MG TABLET 1000 MG PO ×2 (07:02→17:06)
[2022-04-26] MEDS: ALBUTEROL INHALER 2 PUFF IH ×4 (07:02→19:24)
[2022-04-26] MEDS: FOLIC ACID 800 MCG PO (07:02)
[2022-04-26] MEDS: VENLAFAXINE ER 75 MG CAPSULE PO (07:02)
[2022-04-26] MEDS: ASPIRIN 81 MG TABLET EC PO (07:02)
[2022-04-26] MEDS: VENLAFAXINE HCL ER 37.5 MG CAPSULE PO (07:02)
[2022-04-26] MEDS: glipiZIDE 2.5 MG ER TAB PO (07:02)
[2022-04-26] MEDS: FUROSEMIDE 40 MG TABLET 60 MG PO (07:02)
[2022-04-26] MEDS: METOPROLOL SUCCINATE (XL) 50 MG TAB 25 MG PO (07:02)
[2022-04-26] MEDS: POTASSIUM CHLORIDE 10 MEQ CAPSULE ER PO (07:03)
[2022-04-26] MEDS: NON-FORMULARY MEDICATION 1 EACH INH (07:03)
[2022-04-26] MEDS: CARBOXYMETHYLCELLULOSE (REFRESH PLUS) TEARS 1 DROP EYE-BOTH ×4 (07:03→19:24)
[2022-04-26] MEDS: NICOTINE 4 MG GUM BUCCAL ×2 (07:24→17:07)
--- NOTE | 2022-04-26 07:44 | PC.NURSE ---
Status: Resident reported she hasn't sleep during the night d/t coughing. T-97.9 02 sat 97% 02@2l/NC. Cough hard, non productive noted. Also complain not feeling well. Covid & Influenza A&B swab test done and sent to lab.
--- NOTE | 2022-04-26 08:12 | PC.NURSE ---
Week #1-ADL's: Comprehensive and temporary care plan reviewed. No changes made & nothing added to temporary care plan. Resident is independent with dressing, grooming, oral cares and feeding. Will ask for assist as needed. Needs supervision of one with bathing. Is on regular diet per her request. No problems with chewing/swallowing reported. Receives nutritional supplements which she provides her own. Occasionally will ask.Vital signs reviewed, no concerns. Pain: Has chronic (R) shoulder pain managed with Tylenol 1000mg TID, & Oxycodone 5mg Q6H PRN and has used occasionally last month with relief. Is able to verbalize need for pain.
[2022-04-26 08:31] LABS: SARS PCR* Negative SARS-CoV-2 (Negative)
--- NOTE | 2022-04-26 12:13 | PC.NURSE ---
RSV added to test per Anselmo DWYER.
--- NOTE | 2022-04-26 12:13 | PC.NURSE ---
RSV verbal order per Buffy Lyon BUTTON SEWER: Swab for RSV due to flu like symptoms.
[2022-04-26 12:30] LABS: PCR FLU A Negative PCR FLU A (Negative); PCR FLU B Negative PCR FLU B (Negative); PCR RSV Negative PCR RSV (Negative)
--- NOTE | 2022-04-26 13:17 | PC.NURSE ---
Resident updated of Covid, Influenza & RSV results negative.
[2022-04-26 15:00] VITALS: TEMP 36.8; O2SAT 97
[2022-04-26] MEDS: SENNOSIDES 1 TAB TABLET PO (19:24)
[2022-04-26] MEDS: OXYCODONE 5 MG TABLET PO (19:24)
[2022-04-26 23:00] VITALS: TEMP 36.6; O2SAT 93
[2022-04-27 07:00] VITALS: BP 100/60; PULSE 92; RESP 20; TEMP 37.4; O2SAT 94
[2022-04-27] MEDS: OMEPRAZOLE 20 MG CAPSULE DR PO (07:43)
[2022-04-27] MEDS: NON-FORMULARY MEDICATION 1 EACH INH (07:48)
[2022-04-27] MEDS: ALBUTEROL INHALER 2 PUFF IH ×4 (07:48→19:27)
[2022-04-27] MEDS: CARBOXYMETHYLCELLULOSE (REFRESH PLUS) TEARS 1 DROP EYE-BOTH ×4 (08:46→19:27)
[2022-04-27] MEDS: VENLAFAXINE ER 75 MG CAPSULE PO (08:53)
[2022-04-27] MEDS: ACETAMINOPHEN 500 MG TABLET 1000 MG PO ×3 (08:53→19:27)
[2022-04-27] MEDS: ASPIRIN 81 MG TABLET EC PO (08:53)
[2022-04-27] MEDS: VENLAFAXINE HCL ER 37.5 MG CAPSULE PO (08:54)
[2022-04-27] MEDS: FUROSEMIDE 40 MG TABLET 60 MG PO (08:54)
[2022-04-27] MEDS: glipiZIDE 2.5 MG ER TAB PO (08:54)
[2022-04-27] MEDS: METFORMIN 1,000 MG TABLET 1000 MG PO ×2 (08:54→18:13)
[2022-04-27] MEDS: METOPROLOL SUCCINATE (XL) 50 MG TAB 25 MG PO (08:54)
[2022-04-27] MEDS: POTASSIUM CHLORIDE 10 MEQ CAPSULE ER PO (08:55)
[2022-04-27] MEDS: FOLIC ACID 800 MCG PO (08:56)
[2022-04-27] MEDS: NON-FORMULARY MEDICATION 1 EACH SUBCUT (10:35)
--- NOTE | 2022-04-27 10:55 | PC.NURSE ---
Resident c/o nausea this morning before breakfast. No emesis noted or reported. She did take scheduled Omeprazole on empty stomach and was agreeable to taking the rest of her 0800 scheduled medications with applesauce before 0900. Vital signs were assessed: B/P 100/60, P 92, R 20, T 99.3, O2 sat 94% on RA. Resident did endorse moderate all over chronic arthritis pain which was effectively treated with scheduled Tylenol. Blood sugar noted to be 158. Temp reassessed at 1030 and resident was noted to be afebrile with temp of 98.2. Resident was able to eat 100% of toast provided for breakfast along with 4 oz of water and approximately 2 oz of diet edmar keely. Resident is dressed and resting in recliner at this time. Nursing to continue to observe.
[2022-04-27] MEDS: OXYCODONE 5 MG TABLET PO (13:04)
--- NOTE | 2022-04-27 13:12 | PC.NURSE ---
Resident has been refusing to have staff assist her with completing weekly bath and weight this shift as she states she does not feel well today. Resident has had all over arthritis pain including chronic pain in R shoulder. Scheduled Tylenol given as well as PRN Oxycodone this afternoon. Resident did allow this clinical writer to complete skin check. Fingernails/toenails did not need trimming.
[2022-04-27 15:00] VITALS: TEMP 36.7; O2SAT 94
[2022-04-27] MEDS: NICOTINE 4 MG GUM BUCCAL (18:20)
[2022-04-27] MEDS: SENNOSIDES 1 TAB TABLET PO (19:27)
[2022-04-28] MEDS: OMEPRAZOLE 20 MG CAPSULE DR PO (06:27)
[2022-04-28] MEDS: ACETAMINOPHEN 500 MG TABLET 1000 MG PO ×3 (07:03→19:33)
[2022-04-28] MEDS: CARBOXYMETHYLCELLULOSE (REFRESH PLUS) TEARS 1 DROP EYE-BOTH ×4 (07:04→19:33)
[2022-04-28] MEDS: ASPIRIN 81 MG TABLET EC PO (07:04)
[2022-04-28] MEDS: ALBUTEROL INHALER 2 PUFF IH ×4 (07:04→19:33)
[2022-04-28] MEDS: glipiZIDE 2.5 MG ER TAB PO (07:04)
[2022-04-28] MEDS: FUROSEMIDE 40 MG TABLET 60 MG PO (07:04)
[2022-04-28] MEDS: METOPROLOL SUCCINATE (XL) 50 MG TAB 25 MG PO (07:04)
[2022-04-28] MEDS: VENLAFAXINE HCL ER 37.5 MG CAPSULE PO (07:04)
[2022-04-28] MEDS: POTASSIUM CHLORIDE 10 MEQ CAPSULE ER PO (07:04)
[2022-04-28] MEDS: METFORMIN 1,000 MG TABLET 1000 MG PO ×2 (07:04→17:02)
[2022-04-28] MEDS: NON-FORMULARY MEDICATION 1 EACH INH (07:04)
[2022-04-28] MEDS: VENLAFAXINE ER 75 MG CAPSULE PO (07:04)
[2022-04-28] MEDS: OXYCODONE 5 MG TABLET PO (08:04)
[2022-04-28 16:34] VITALS: TEMP 36.7; O2SAT 92
[2022-04-28] MEDS: SENNOSIDES 1 TAB TABLET PO (19:33)
[2022-04-28 21:26] VITALS: TEMP 36.7; O2SAT 92
[2022-04-29] MEDS: VENLAFAXINE HCL ER 37.5 MG CAPSULE PO (07:04)
[2022-04-29] MEDS: ASPIRIN 81 MG TABLET EC PO (07:04)
[2022-04-29] MEDS: OMEPRAZOLE 20 MG CAPSULE DR PO (07:04)
[2022-04-29] MEDS: METOPROLOL SUCCINATE (XL) 50 MG TAB 25 MG PO (07:04)
[2022-04-29] MEDS: ACETAMINOPHEN 500 MG TABLET 1000 MG PO ×3 (07:04→19:44)
[2022-04-29] MEDS: VENLAFAXINE ER 75 MG CAPSULE PO (07:04)
[2022-04-29] MEDS: ALBUTEROL INHALER 2 PUFF IH ×4 (07:04→19:44)
[2022-04-29] MEDS: FOLIC ACID 800 MCG PO (07:05)
[2022-04-29] MEDS: NICOTINE 4 MG GUM BUCCAL (07:05)
[2022-04-29] MEDS: NON-FORMULARY MEDICATION 1 EACH INH (07:05)
[2022-04-29] MEDS: CARBOXYMETHYLCELLULOSE (REFRESH PLUS) TEARS 1 DROP EYE-BOTH ×4 (07:05→19:44)
[2022-04-29] MEDS: glipiZIDE 2.5 MG ER TAB PO (08:26)
[2022-04-29] MEDS: FUROSEMIDE 40 MG TABLET 60 MG PO (08:26)
[2022-04-29] MEDS: OXYCODONE 5 MG TABLET PO (08:26)
[2022-04-29] MEDS: POTASSIUM CHLORIDE 10 MEQ CAPSULE ER PO (08:26)
[2022-04-29] MEDS: METFORMIN 1,000 MG TABLET 1000 MG PO ×2 (08:26→19:43)
[2022-04-29] MEDS: MAG HYDROX/ALUMINUM HYD/SIMETH 30 ML ORAL.SUSP 15 ML PO (13:08)
--- NOTE | 2022-04-29 13:20 | PC.NURSE ---
Status: Resident didn't eat lunch. Complain of stomach upset. Maaolx 15 cc and sprite given.
[2022-04-29 16:44] VITALS: TEMP 35.8; O2SAT 92
[2022-04-29] MEDS: SENNOSIDES 1 TAB TABLET PO (19:44)
[2022-04-29 21:39] VITALS: TEMP 35.8; O2SAT 92
[2022-04-30] MEDS: OMEPRAZOLE 20 MG CAPSULE DR PO (06:37)
[2022-04-30] MEDS: NICOTINE 4 MG GUM BUCCAL (06:40)
[2022-04-30] MEDS: METFORMIN 1,000 MG TABLET 1000 MG PO ×2 (08:08→19:52)
[2022-04-30] MEDS: ASPIRIN 81 MG TABLET EC PO (08:08)
[2022-04-30] MEDS: glipiZIDE 2.5 MG ER TAB PO (08:08)
[2022-04-30] MEDS: VENLAFAXINE HCL ER 37.5 MG CAPSULE PO (08:08)
[2022-04-30] MEDS: ALBUTEROL INHALER 2 PUFF IH ×4 (08:08→19:52)
[2022-04-30] MEDS: VENLAFAXINE ER 75 MG CAPSULE PO (08:08)
[2022-04-30] MEDS: FUROSEMIDE 40 MG TABLET 60 MG PO (08:08)
[2022-04-30] MEDS: METOPROLOL SUCCINATE (XL) 50 MG TAB 25 MG PO (08:08)
[2022-04-30] MEDS: ACETAMINOPHEN 500 MG TABLET 1000 MG PO ×3 (08:08→19:52)
[2022-04-30] MEDS: FOLIC ACID 800 MCG PO (08:08)
[2022-04-30] MEDS: POTASSIUM CHLORIDE 10 MEQ CAPSULE ER PO (08:09)
[2022-04-30] MEDS: NON-FORMULARY MEDICATION 1 EACH INH (08:09)
[2022-04-30] MEDS: CARBOXYMETHYLCELLULOSE (REFRESH PLUS) TEARS 1 DROP EYE-BOTH ×4 (08:09→19:52)
[2022-04-30 10:41] VITALS: TEMP 36.8; O2SAT 94
[2022-04-30] MEDS: SENNOSIDES 1 TAB TABLET PO (19:52)
[2022-04-30] MEDS: OXYCODONE 5 MG TABLET PO (19:53)
[2022-04-30 23:02] VITALS: TEMP 36.8; O2SAT 97
[2022-05-01] MEDS: OMEPRAZOLE 20 MG CAPSULE DR PO (06:30)
[2022-05-01] MEDS: NICOTINE 4 MG GUM BUCCAL ×2 (06:50→17:52)
[2022-05-01] MEDS: ACETAMINOPHEN 500 MG TABLET 1000 MG PO ×3 (07:12→19:31)
[2022-05-01] MEDS: VENLAFAXINE HCL ER 37.5 MG CAPSULE PO (07:12)
[2022-05-01] MEDS: VENLAFAXINE ER 75 MG CAPSULE PO (07:12)
[2022-05-01] MEDS: ALBUTEROL INHALER 2 PUFF IH ×4 (07:12→19:31)
[2022-05-01] MEDS: NON-FORMULARY MEDICATION 1 EACH INH (07:13)
[2022-05-01] MEDS: FOLIC ACID 800 MCG PO (07:13)
[2022-05-01] MEDS: CARBOXYMETHYLCELLULOSE (REFRESH PLUS) TEARS 1 DROP EYE-BOTH ×4 (07:13→19:31)
[2022-05-01] MEDS: METOPROLOL SUCCINATE (XL) 50 MG TAB 25 MG PO (07:13)
[2022-05-01] MEDS: glipiZIDE 2.5 MG ER TAB PO (08:37)
[2022-05-01] MEDS: FUROSEMIDE 40 MG TABLET 60 MG PO (08:37)
[2022-05-01] MEDS: ASPIRIN 81 MG TABLET EC PO (08:37)
[2022-05-01] MEDS: POTASSIUM CHLORIDE 10 MEQ CAPSULE ER PO (08:38)
[2022-05-01] MEDS: METFORMIN 1,000 MG TABLET 1000 MG PO ×2 (08:38→17:38)
--- NOTE | 2022-05-01 09:30 | PC.NURSE ---
Podiatry: Resident refused service.
[2022-05-01 15:00] VITALS: TEMP 36.4; O2SAT 94
[2022-05-01] MEDS: SENNOSIDES 1 TAB TABLET PO (19:30)
[2022-05-02] MEDS: OMEPRAZOLE 20 MG CAPSULE DR PO (06:45)
[2022-05-02] MEDS: ACETAMINOPHEN 500 MG TABLET 1000 MG PO ×3 (07:03→20:24)
[2022-05-02] MEDS: FOLIC ACID 800 MCG PO (07:04)
[2022-05-02] MEDS: VENLAFAXINE ER 75 MG CAPSULE PO (07:04)
[2022-05-02] MEDS: ALBUTEROL INHALER 2 PUFF IH ×4 (07:04→20:24)
[2022-05-02] MEDS: NON-FORMULARY MEDICATION 1 EACH INH (07:04)
[2022-05-02] MEDS: VENLAFAXINE HCL ER 37.5 MG CAPSULE PO (07:04)
[2022-05-02] MEDS: CARBOXYMETHYLCELLULOSE (REFRESH PLUS) TEARS 1 DROP EYE-BOTH ×4 (07:04→20:24)
[2022-05-02] MEDS: METOPROLOL SUCCINATE (XL) 50 MG TAB 25 MG PO (07:04)
[2022-05-02] MEDS: NICOTINE 4 MG GUM BUCCAL ×2 (07:05→17:45)
[2022-05-02] MEDS: POTASSIUM CHLORIDE 10 MEQ CAPSULE ER PO (08:46)
[2022-05-02] MEDS: METFORMIN 1,000 MG TABLET 1000 MG PO ×2 (08:46→17:45)
[2022-05-02] MEDS: ASPIRIN 81 MG TABLET EC PO (08:46)
[2022-05-02] MEDS: FUROSEMIDE 40 MG TABLET 60 MG PO (08:46)
[2022-05-02] MEDS: glipiZIDE 2.5 MG ER TAB PO (08:46)
[2022-05-02 15:00] VITALS: TEMP 36.6; O2SAT 95
[2022-05-02] MEDS: SENNOSIDES 1 TAB TABLET PO (20:24)
[2022-05-02] MEDS: OXYCODONE 5 MG TABLET PO (20:25)
--- NOTE | 2022-05-02 23:22 | PC.NURSE ---
TEO Request: Resident has requested to visit on 05/05/22.
--- NOTE | 2022-05-02 23:40 | PC.NURSE ---
Pain: Resident C/O right shoulder pain AT 1900. PRN Oxycodone given, and it was effective.
--- NOTE | 2022-05-03 01:12 | PC.NURSE ---
WEEKLY CHARTING - WEEK 2: Vital signs reviewed - no concerns. Temporary and comprehensive care plan reviewed - no change. Independent with transfers, ambulation, and bed mobility. Uses 4WW for ambulation. 1/[address] bilaterally as enabler for independent bed mobility. Low risk for falls per latest fall risk assessment. Fall interventions: call light in reach, walker within reach, bed in low position with brakes locked, staff provide reminders to utilize walker at times.
[2022-05-03] MEDS: OMEPRAZOLE 20 MG CAPSULE DR PO (06:23)
[2022-05-03] MEDS: NICOTINE 4 MG GUM BUCCAL (06:34)
[2022-05-03] MEDS: METOPROLOL SUCCINATE (XL) 50 MG TAB 25 MG PO (07:01)
[2022-05-03] MEDS: VENLAFAXINE ER 75 MG CAPSULE PO (07:01)
[2022-05-03] MEDS: ALBUTEROL INHALER 2 PUFF IH ×4 (07:01→19:28)
[2022-05-03] MEDS: ASPIRIN 81 MG TABLET EC PO (07:01)
[2022-05-03] MEDS: ACETAMINOPHEN 500 MG TABLET 1000 MG PO ×3 (07:01→19:28)
[2022-05-03] MEDS: glipiZIDE 2.5 MG ER TAB PO (07:01)
[2022-05-03] MEDS: VENLAFAXINE HCL ER 37.5 MG CAPSULE PO (07:01)
[2022-05-03] MEDS: FOLIC ACID 800 MCG PO (07:02)
[2022-05-03] MEDS: NON-FORMULARY MEDICATION 1 EACH INH (07:02)
[2022-05-03] MEDS: CARBOXYMETHYLCELLULOSE (REFRESH PLUS) TEARS 1 DROP EYE-BOTH ×4 (07:02→19:28)
[2022-05-03] MEDS: METFORMIN 1,000 MG TABLET 1000 MG PO ×2 (08:23→17:06)
[2022-05-03] MEDS: POTASSIUM CHLORIDE 10 MEQ CAPSULE ER PO (08:23)
[2022-05-03] MEDS: FUROSEMIDE 40 MG TABLET 60 MG PO (08:24)
--- NOTE | 2022-05-03 11:17 | PC.NURSE ---
Weekly Charting- Week 2 Vital signs over the last week remain stable. Temporary and comprehensive care plans have been reviewed with no changes noted. Resident is independently with bed mobility, transferring and ambulation. She uses a 4WW with ambulation. 1/[address] bilaterally and to be up and all times per care plan in order to promote independence/positioning. She has no alarms in place as she remains a low fall risk. Call light and walker within reach with gripper socks worn for fall prevention interventions. Resident ambulates to and from meals.
--- NOTE | 2022-05-03 13:11 | PC.PHA1 ---
ICT SECURITY SPECIALIST PHARMACIST'S MEDICATION REVIEW: MEDICATION MONITORING:Venlafaxine 112.5 mg daily for generalized anxiety and major depression. IRREGULARITY OR COMMENTS:Patient has had some bouts of pain mentioned in nursing notes. Oxycodone prn order utilized. She continues to take part in facility and outside family social events. A GDR of venlafaxine clinically contraindicated at this time, patient is thriving and her dose low. She continues on polypharmacy for COPD, rheumatoid arthritis and DM2. SUGGESTED COURSE OF ACTION TAKEN:No medication recommendations at this time.
--- NOTE | 2022-05-03 16:00 | PC.SPIRITC ---
Late entry: I provided visit for support and connection.
[2022-05-03 16:52] VITALS: TEMP 36.6; O2SAT 92
[2022-05-03] MEDS: OXYCODONE 5 MG TABLET PO (19:28)
[2022-05-03] MEDS: SENNOSIDES 1 TAB TABLET PO (19:28)
[2022-05-04] MEDS: OMEPRAZOLE 20 MG CAPSULE DR PO (06:25)
[2022-05-04 07:00] VITALS: BP 113/71; PULSE 92; RESP 18; TEMP 36.4; O2SAT 94; BMI 20.9
[2022-05-04] MEDS: ACETAMINOPHEN 500 MG TABLET 1000 MG PO ×3 (07:58→19:38)
[2022-05-04] MEDS: FOLIC ACID 800 MCG PO (07:59)
[2022-05-04] MEDS: CARBOXYMETHYLCELLULOSE (REFRESH PLUS) TEARS 1 DROP EYE-BOTH ×4 (07:59→19:38)
[2022-05-04] MEDS: VENLAFAXINE HCL ER 37.5 MG CAPSULE PO (07:59)
[2022-05-04] MEDS: METOPROLOL SUCCINATE (XL) 50 MG TAB 25 MG PO (07:59)
[2022-05-04] MEDS: NON-FORMULARY MEDICATION 1 EACH INH (07:59)
[2022-05-04] MEDS: VENLAFAXINE ER 75 MG CAPSULE PO (07:59)
[2022-05-04] MEDS: METFORMIN 1,000 MG TABLET 1000 MG PO ×2 (07:59→19:11)
[2022-05-04] MEDS: FUROSEMIDE 40 MG TABLET 60 MG PO (07:59)
[2022-05-04] MEDS: ALBUTEROL INHALER 2 PUFF IH ×4 (07:59→19:38)
[2022-05-04] MEDS: ASPIRIN 81 MG TABLET EC PO (07:59)
[2022-05-04] MEDS: glipiZIDE 2.5 MG ER TAB PO (07:59)
[2022-05-04] MEDS: POTASSIUM CHLORIDE 10 MEQ CAPSULE ER PO (07:59)
--- NOTE | 2022-05-04 16:14 | PC.NURSE ---
Antipsychotropic medication review: Buffy Briones NP reviewed use of Effexor. At this time resident stable mood. Will reassess use in July 2022 or sooner if needed.
[2022-05-04] MEDS: SENNOSIDES 1 TAB TABLET PO (19:38)
[2022-05-04 21:49] VITALS: TEMP 36.3; O2SAT 92
--- NOTE | 2022-05-04 22:13 | PC.NURSE ---
TEO tomorrow: She will be going with her family this weekend. She will take her meds including her Oxycodone. She did not want to take the oxygen tank this time.
[2022-05-04 23:44] VITALS: TEMP 36.6; O2SAT 91
[2022-05-05 06:49] VITALS: TEMP 36.4; O2SAT 95
[2022-05-05] MEDS: ACETAMINOPHEN 500 MG TABLET 1000 MG PO (07:25)
[2022-05-05] MEDS: OMEPRAZOLE 20 MG CAPSULE DR PO (07:25)
[2022-05-05] MEDS: VENLAFAXINE ER 75 MG CAPSULE PO (07:25)
[2022-05-05] MEDS: ASPIRIN 81 MG TABLET EC PO (07:25)
[2022-05-05] MEDS: ALBUTEROL INHALER 2 PUFF IH (07:25)
[2022-05-05] MEDS: glipiZIDE 2.5 MG ER TAB PO (07:26)
[2022-05-05] MEDS: METOPROLOL SUCCINATE (XL) 50 MG TAB 25 MG PO (07:26)
[2022-05-05] MEDS: NON-FORMULARY MEDICATION 1 EACH INH (07:26)
[2022-05-05] MEDS: VENLAFAXINE HCL ER 37.5 MG CAPSULE PO (07:26)
[2022-05-05] MEDS: CARBOXYMETHYLCELLULOSE (REFRESH PLUS) TEARS 1 DROP EYE-BOTH (07:27)
[2022-05-05] MEDS: NICOTINE 4 MG GUM BUCCAL (07:32)
[2022-05-05] MEDS: METFORMIN 1,000 MG TABLET 1000 MG PO (08:40)
[2022-05-05] MEDS: POTASSIUM CHLORIDE 10 MEQ CAPSULE ER PO (08:40)
--- NOTE | 2022-05-05 08:42 | PC.NURSE ---
Resident refusing to take 60 mg dose of Lasix with breakfast today as she concerned she will have to urinate in process of going home for TEO. She states she will take it after she goes on TEO at 1030 today. Nursing staff sending medication with resident to take once she arrives at her destination.
--- NOTE | 2022-05-05 11:01 | PC.NURSE ---
Resident leave of absence- 05/05/22 5035. All scheduled medications, PRN Nicotine gum and one card of 15 tabs PRN Oxycodone sent with resident. She is expected to return on 05/07/22.
--- NOTE | 2022-05-06 18:00 | PC.NURSE ---
TEO Status: Resident returned to [facility] at 1800 o 05/06/22. COVID Testing completed.
[2022-05-06] MEDS: METFORMIN 1,000 MG TABLET 1000 MG PO (19:22)
[2022-05-06] MEDS: CARBOXYMETHYLCELLULOSE (REFRESH PLUS) TEARS 1 DROP EYE-BOTH (19:23)
[2022-05-06] MEDS: ACETAMINOPHEN 500 MG TABLET 1000 MG PO (19:23)
[2022-05-06] MEDS: ALBUTEROL INHALER 2 PUFF IH (19:23)
[2022-05-06 19:26] LABS: SARS PCR* Negative SARS-CoV-2 (Negative)
[2022-05-06] MEDS: LOPERAMIDE HCL 2 MG CAPSULE PO (19:28)
[2022-05-06] MEDS: OXYCODONE 5 MG TABLET PO (20:06)
--- NOTE | 2022-05-06 22:27 | PC.NURSE ---
Bowel status: Resident C/O diarrhea. SO Imodium given at 1928
[2022-05-06 23:59] VITALS: TEMP 36.6; O2SAT 95
[2022-05-07] MEDS: OMEPRAZOLE 20 MG CAPSULE DR PO (07:03)
[2022-05-07] MEDS: ACETAMINOPHEN 500 MG TABLET 1000 MG PO ×3 (07:05→19:09)
[2022-05-07] MEDS: ALBUTEROL INHALER 2 PUFF IH ×4 (07:05→19:09)
[2022-05-07] MEDS: ASPIRIN 81 MG TABLET EC PO (07:05)
[2022-05-07] MEDS: glipiZIDE 2.5 MG ER TAB PO (07:06)
[2022-05-07] MEDS: VENLAFAXINE HCL ER 37.5 MG CAPSULE PO (07:06)
[2022-05-07] MEDS: VENLAFAXINE ER 75 MG CAPSULE PO (07:06)
[2022-05-07] MEDS: METOPROLOL SUCCINATE (XL) 50 MG TAB 25 MG PO (07:07)
[2022-05-07] MEDS: NON-FORMULARY MEDICATION 1 EACH INH (07:08)
[2022-05-07] MEDS: FOLIC ACID 800 MCG PO (07:08)
[2022-05-07] MEDS: CARBOXYMETHYLCELLULOSE (REFRESH PLUS) TEARS 1 DROP EYE-BOTH ×4 (07:08→19:09)
[2022-05-07] MEDS: NICOTINE 4 MG GUM BUCCAL (07:10)
[2022-05-07] MEDS: METFORMIN 1,000 MG TABLET 1000 MG PO ×2 (08:41→17:22)
[2022-05-07] MEDS: POTASSIUM CHLORIDE 10 MEQ CAPSULE ER PO (08:41)
[2022-05-07] MEDS: FUROSEMIDE 40 MG TABLET 60 MG PO (08:41)
[2022-05-07] MEDS: OXYCODONE 5 MG TABLET PO (08:45)
[2022-05-07 10:05] VITALS: TEMP 36.3; O2SAT 93
--- NOTE | 2022-05-07 13:27 | PC.NURSE ---
Resident status : Resident did not have any episode of loose stool during this shift. O2 sat was 93% ( RA). c/o right shoulder pain and PRN tab Oxycodone was given at 0840 with much relief. Appetite was fair. Covid test was neg. Resident want to have back her PRN Loperamide -noted in the N/P book.
[2022-05-07 15:00] VITALS: TEMP 36.5; O2SAT 93
[2022-05-07] MEDS: SENNOSIDES 1 TAB TABLET PO (19:09)
[2022-05-07 23:47] VITALS: TEMP 36.4; O2SAT 93
[2022-05-08 07:00] VITALS: TEMP 37.2; O2SAT 90
[2022-05-08] MEDS: VENLAFAXINE ER 75 MG CAPSULE PO (07:33)
[2022-05-08] MEDS: ALBUTEROL INHALER 2 PUFF IH ×4 (07:33→19:35)
[2022-05-08] MEDS: VENLAFAXINE HCL ER 37.5 MG CAPSULE PO (07:33)
[2022-05-08] MEDS: ACETAMINOPHEN 500 MG TABLET 1000 MG PO ×3 (07:33→19:35)
[2022-05-08] MEDS: ASPIRIN 81 MG TABLET EC PO (07:33)
[2022-05-08] MEDS: OMEPRAZOLE 20 MG CAPSULE DR PO (07:33)
[2022-05-08] MEDS: CARBOXYMETHYLCELLULOSE (REFRESH PLUS) TEARS 1 DROP EYE-BOTH ×4 (07:34→19:35)
[2022-05-08] MEDS: FOLIC ACID 800 MCG PO (07:34)
[2022-05-08] MEDS: glipiZIDE 2.5 MG ER TAB PO (07:34)
[2022-05-08] MEDS: METOPROLOL SUCCINATE (XL) 50 MG TAB 25 MG PO (07:34)
[2022-05-08] MEDS: NON-FORMULARY MEDICATION 1 EACH INH (07:34)
[2022-05-08] MEDS: NICOTINE 4 MG GUM BUCCAL ×2 (07:39→17:17)
[2022-05-08] MEDS: FUROSEMIDE 40 MG TABLET 60 MG PO (08:34)
[2022-05-08] MEDS: METFORMIN 1,000 MG TABLET 1000 MG PO ×2 (08:35→17:16)
[2022-05-08] MEDS: POTASSIUM CHLORIDE 10 MEQ CAPSULE ER PO (08:35)
[2022-05-08 15:00] VITALS: TEMP 36.8; O2SAT 96
[2022-05-08] MEDS: SENNOSIDES 1 TAB TABLET PO (19:35)
[2022-05-08 23:53] VITALS: TEMP 36.7; O2SAT 93
[2022-05-09] MEDS: OMEPRAZOLE 20 MG CAPSULE DR PO (06:29)
[2022-05-09] MEDS: NICOTINE 4 MG GUM BUCCAL (06:35)
[2022-05-09 06:36] VITALS: TEMP 36.3; O2SAT 97
--- NOTE | 2022-05-09 06:48 | PC.NURSE ---
Admit Covid swab test day 3 done and sent to lab.
[2022-05-09] MEDS: glipiZIDE 2.5 MG ER TAB PO (07:01)
[2022-05-09] MEDS: ALBUTEROL INHALER 2 PUFF IH ×4 (07:01→19:48)
[2022-05-09] MEDS: METOPROLOL SUCCINATE (XL) 50 MG TAB 25 MG PO (07:01)
[2022-05-09] MEDS: VENLAFAXINE ER 75 MG CAPSULE PO (07:01)
[2022-05-09] MEDS: VENLAFAXINE HCL ER 37.5 MG CAPSULE PO (07:01)
[2022-05-09] MEDS: ASPIRIN 81 MG TABLET EC PO (07:01)
[2022-05-09] MEDS: ACETAMINOPHEN 500 MG TABLET 1000 MG PO ×3 (07:01→19:48)
[2022-05-09] MEDS: NON-FORMULARY MEDICATION 1 EACH INH (07:02)
[2022-05-09] MEDS: FOLIC ACID 800 MCG PO (07:02)
[2022-05-09] MEDS: CARBOXYMETHYLCELLULOSE (REFRESH PLUS) TEARS 1 DROP EYE-BOTH ×4 (07:02→19:48)
[2022-05-09 07:25] LABS: SARS PCR* Negative SARS-CoV-2 (Negative)
--- NOTE | 2022-05-09 08:04 | PC.NURSE ---
Covid test result negative. Resident updated.
[2022-05-09] MEDS: FUROSEMIDE 40 MG TABLET 60 MG PO (08:22)
[2022-05-09] MEDS: METFORMIN 1,000 MG TABLET 1000 MG PO ×2 (08:22→19:48)
[2022-05-09] MEDS: POTASSIUM CHLORIDE 10 MEQ CAPSULE ER PO (08:23)
--- NOTE | 2022-05-09 10:48 | PC.NURSE ---
Order: Loperamide 2mg PO Q2H PRN by Anselmo DWYER.
[2022-05-09] MEDS: SENNOSIDES 1 TAB TABLET PO (19:48)
[2022-05-09] MEDS: OXYCODONE 5 MG TABLET PO (19:48)
[2022-05-09 22:49] VITALS: TEMP 36.6; O2SAT 95
[2022-05-09 23:00] VITALS: TEMP 36.6; O2SAT 95
--- NOTE | 2022-05-10 02:29 | PC.NURSE ---
WEEKLY CHARTING - WEEK 3: Vital signs reviewed - no concerns. Temporary and comprehensive care plan reviewed - no change. No skin integrity concerns at this time. Primarily continent of bowel and bladder. Has some stress/urge incontinence. Wears pull-up supplied in room by staff. Is independent with toileting including bryanna-cares, pad management, and clothing adjustment.
[2022-05-10] MEDS: OMEPRAZOLE 20 MG CAPSULE DR PO (06:26)
[2022-05-10 06:33] VITALS: TEMP 36.7; O2SAT 99
[2022-05-10] MEDS: NICOTINE 4 MG GUM BUCCAL (06:33)
[2022-05-10] MEDS: NON-FORMULARY MEDICATION 1 EACH INH (07:01)
[2022-05-10] MEDS: VENLAFAXINE HCL ER 37.5 MG CAPSULE PO (07:01)
[2022-05-10] MEDS: FOLIC ACID 800 MCG PO (07:01)
[2022-05-10] MEDS: ACETAMINOPHEN 500 MG TABLET 1000 MG PO ×3 (07:01→19:59)
[2022-05-10] MEDS: ASPIRIN 81 MG TABLET EC PO (07:01)
[2022-05-10] MEDS: METOPROLOL SUCCINATE (XL) 50 MG TAB 25 MG PO (07:01)
[2022-05-10] MEDS: VENLAFAXINE ER 75 MG CAPSULE PO (07:01)
[2022-05-10] MEDS: ALBUTEROL INHALER 2 PUFF IH ×4 (07:01→20:00)
[2022-05-10] MEDS: glipiZIDE 2.5 MG ER TAB PO (07:01)
[2022-05-10] MEDS: CARBOXYMETHYLCELLULOSE (REFRESH PLUS) TEARS 1 DROP EYE-BOTH ×4 (07:01→20:00)
--- NOTE | 2022-05-10 07:19 | PC.NURSE ---
Week #3 - Toileting: Comprehensive and temporary care plan reviewed. No changes made and nothing added to temporary care plan. Resident is generally continent of bowel & bladder. Has occasional urgency and incontinence on way to the toilet. Transfer/ambulate independently to the toilet. Is independent with toileting including pads, bryanna cares and clothing management. Will ask for assist as needed. Wears pull ups. Vital signs reviewed, no concerns. Continue weekly monitoring. Skin: No issues at this time. Is able to report with concerns. Skin is checked routinely on bath day.
[2022-05-10] MEDS: METFORMIN 1,000 MG TABLET 1000 MG PO ×2 (08:25→17:25)
[2022-05-10] MEDS: POTASSIUM CHLORIDE 10 MEQ CAPSULE ER PO (08:25)
[2022-05-10] MEDS: FUROSEMIDE 40 MG TABLET 60 MG PO (08:25)
[2022-05-10 15:00] VITALS: TEMP 36.4; O2SAT 95
[2022-05-10] MEDS: SENNOSIDES 1 TAB TABLET PO (20:00)
[2022-05-10 23:00] VITALS: TEMP 36.9; O2SAT 92
--- NOTE | 2022-05-11 07:18 | PC.NURSE ---
Admit Covid day 5 swab test done and sent to lab. Will notify resident of result.
[2022-05-11] MEDS: OMEPRAZOLE 20 MG CAPSULE DR PO (07:29)
[2022-05-11] MEDS: ACETAMINOPHEN 500 MG TABLET 1000 MG PO ×3 (07:29→19:20)
[2022-05-11] MEDS: ALBUTEROL INHALER 2 PUFF IH ×4 (07:30→19:20)
[2022-05-11] MEDS: NICOTINE 4 MG GUM BUCCAL ×2 (07:30→17:17)
[2022-05-11] MEDS: glipiZIDE 2.5 MG ER TAB PO (07:30)
[2022-05-11] MEDS: VENLAFAXINE ER 75 MG CAPSULE PO (07:30)
[2022-05-11] MEDS: METOPROLOL SUCCINATE (XL) 50 MG TAB 25 MG PO (07:30)
[2022-05-11] MEDS: ASPIRIN 81 MG TABLET EC PO (07:30)
[2022-05-11] MEDS: FOLIC ACID 800 MCG PO (07:30)
[2022-05-11] MEDS: CARBOXYMETHYLCELLULOSE (REFRESH PLUS) TEARS 1 DROP EYE-BOTH ×4 (07:30→19:21)
[2022-05-11] MEDS: NON-FORMULARY MEDICATION 1 EACH INH (07:30)
[2022-05-11] MEDS: VENLAFAXINE HCL ER 37.5 MG CAPSULE PO (07:30)
[2022-05-11] MEDS: POTASSIUM CHLORIDE 10 MEQ CAPSULE ER PO (08:34)
[2022-05-11] MEDS: METFORMIN 1,000 MG TABLET 1000 MG PO ×2 (08:34→17:17)
[2022-05-11] MEDS: FUROSEMIDE 40 MG TABLET 60 MG PO (08:34)
[2022-05-11 09:00] LABS: SARS PCR* Negative SARS-CoV-2 (Negative)
[2022-05-11 09:56] VITALS: BP 141/76; PULSE 97; RESP 24; TEMP 36.6; O2SAT 94; BMI 20.9
[2022-05-11] MEDS: NON-FORMULARY MEDICATION 1 EACH SUBCUT (11:05)
--- NOTE | 2022-05-11 11:19 | PC.NURSE ---
Resident updated of Covid negative result.
[2022-05-11 15:11] VITALS: TEMP 36.4; O2SAT 95
[2022-05-11] MEDS: OXYCODONE 5 MG TABLET PO (19:21)
[2022-05-11] MEDS: SENNOSIDES 1 TAB TABLET PO (19:21)
[2022-05-11 23:00] VITALS: TEMP 37.2; O2SAT 91
[2022-05-12] MEDS: NICOTINE 4 MG GUM BUCCAL (06:40)
[2022-05-12] MEDS: OMEPRAZOLE 20 MG CAPSULE DR PO (06:40)
[2022-05-12 07:00] VITALS: TEMP 36.7; O2SAT 92
[2022-05-12] MEDS: glipiZIDE 2.5 MG ER TAB PO (07:03)
[2022-05-12] MEDS: ACETAMINOPHEN 500 MG TABLET 1000 MG PO ×3 (07:03→20:14)
[2022-05-12] MEDS: ALBUTEROL INHALER 2 PUFF IH ×4 (07:03→20:14)
[2022-05-12] MEDS: VENLAFAXINE HCL ER 37.5 MG CAPSULE PO (07:03)
[2022-05-12] MEDS: ASPIRIN 81 MG TABLET EC PO (07:03)
[2022-05-12] MEDS: FUROSEMIDE 40 MG TABLET 60 MG PO (07:03)
[2022-05-12] MEDS: METOPROLOL SUCCINATE (XL) 50 MG TAB 25 MG PO (07:35)
[2022-05-12] MEDS: NON-FORMULARY MEDICATION 1 EACH INH (07:35)
[2022-05-12] MEDS: VENLAFAXINE ER 75 MG CAPSULE PO (07:35)
[2022-05-12] MEDS: CARBOXYMETHYLCELLULOSE (REFRESH PLUS) TEARS 1 DROP EYE-BOTH ×4 (07:35→20:14)
[2022-05-12] MEDS: METFORMIN 1,000 MG TABLET 1000 MG PO ×2 (08:34→17:14)
[2022-05-12] MEDS: POTASSIUM CHLORIDE 10 MEQ CAPSULE ER PO (08:34)
[2022-05-12] MEDS: OXYCODONE 5 MG TABLET PO (08:35)
[2022-05-12] MEDS: LOPERAMIDE HCL 2 MG CAPSULE PO (09:08)
[2022-05-12 17:09] VITALS: TEMP 37; O2SAT 92
[2022-05-12] MEDS: SENNOSIDES 1 TAB TABLET PO (20:14)
[2022-05-12 23:00] VITALS: TEMP 36.6; O2SAT 90
[2022-05-13] MEDS: OMEPRAZOLE 20 MG CAPSULE DR PO (06:38)
[2022-05-13] MEDS: NICOTINE 4 MG GUM BUCCAL (06:50)
[2022-05-13 07:00] VITALS: TEMP 36.6; O2SAT 95
[2022-05-13] MEDS: ALBUTEROL INHALER 2 PUFF IH ×4 (07:45→19:39)
[2022-05-13] MEDS: ACETAMINOPHEN 500 MG TABLET 1000 MG PO ×3 (07:45→19:39)
[2022-05-13] MEDS: VENLAFAXINE HCL ER 37.5 MG CAPSULE PO (07:46)
[2022-05-13] MEDS: glipiZIDE 2.5 MG ER TAB PO (07:46)
[2022-05-13] MEDS: FUROSEMIDE 40 MG TABLET 60 MG PO (07:46)
[2022-05-13] MEDS: METFORMIN 1,000 MG TABLET 1000 MG PO ×2 (07:46→17:02)
[2022-05-13] MEDS: FOLIC ACID 800 MCG PO (07:46)
[2022-05-13] MEDS: VENLAFAXINE ER 75 MG CAPSULE PO (07:46)
[2022-05-13] MEDS: ASPIRIN 81 MG TABLET EC PO (07:46)
[2022-05-13] MEDS: METOPROLOL SUCCINATE (XL) 50 MG TAB 25 MG PO (07:46)
[2022-05-13] MEDS: POTASSIUM CHLORIDE 10 MEQ CAPSULE ER PO (08:08)
[2022-05-13] MEDS: CARBOXYMETHYLCELLULOSE (REFRESH PLUS) TEARS 1 DROP EYE-BOTH ×4 (08:08→19:39)
[2022-05-13] MEDS: NON-FORMULARY MEDICATION 1 EACH INH (08:08)
[2022-05-13 16:57] VITALS: TEMP 37.1; O2SAT 95
[2022-05-13] MEDS: SENNOSIDES 1 TAB TABLET PO (19:39)
[2022-05-13] MEDS: OXYCODONE 5 MG TABLET PO (19:40)
[2022-05-13 23:00] VITALS: TEMP 36.6; O2SAT 91
[2022-05-14 07:00] VITALS: TEMP 36.3; O2SAT 95
[2022-05-14] MEDS: NICOTINE 4 MG GUM BUCCAL (07:00)
[2022-05-14] MEDS: VENLAFAXINE ER 75 MG CAPSULE PO (07:13)
[2022-05-14] MEDS: OMEPRAZOLE 20 MG CAPSULE DR PO (07:13)
[2022-05-14] MEDS: ALBUTEROL INHALER 2 PUFF IH ×4 (07:13→19:37)
[2022-05-14] MEDS: ACETAMINOPHEN 500 MG TABLET 1000 MG PO ×3 (07:13→19:37)
[2022-05-14] MEDS: ASPIRIN 81 MG TABLET EC PO (07:13)
[2022-05-14] MEDS: VENLAFAXINE HCL ER 37.5 MG CAPSULE PO (07:13)
[2022-05-14] MEDS: FOLIC ACID 800 MCG PO (07:14)
[2022-05-14] MEDS: METOPROLOL SUCCINATE (XL) 50 MG TAB 25 MG PO (07:14)
[2022-05-14] MEDS: CARBOXYMETHYLCELLULOSE (REFRESH PLUS) TEARS 1 DROP EYE-BOTH ×4 (07:14→19:37)
[2022-05-14] MEDS: NON-FORMULARY MEDICATION 1 EACH INH (07:14)
[2022-05-14] MEDS: glipiZIDE 2.5 MG ER TAB PO (07:14)
[2022-05-14] MEDS: POTASSIUM CHLORIDE 10 MEQ CAPSULE ER PO (08:21)
[2022-05-14] MEDS: METFORMIN 1,000 MG TABLET 1000 MG PO ×2 (08:21→17:27)
[2022-05-14] MEDS: FUROSEMIDE 40 MG TABLET 60 MG PO (08:21)
[2022-05-14 16:47] VITALS: TEMP 36.6; O2SAT 96
[2022-05-14] MEDS: SENNOSIDES 1 TAB TABLET PO (19:37)
[2022-05-14] MEDS: OXYCODONE 5 MG TABLET PO (19:37)
[2022-05-14 23:00] VITALS: TEMP 36.7; O2SAT 91
[2022-05-15 07:00] VITALS: TEMP 36.9; O2SAT 91
[2022-05-15] MEDS: OMEPRAZOLE 20 MG CAPSULE DR PO (07:37)
[2022-05-15] MEDS: glipiZIDE 2.5 MG ER TAB PO (07:38)
[2022-05-15] MEDS: VENLAFAXINE HCL ER 37.5 MG CAPSULE PO (07:38)
[2022-05-15] MEDS: ASPIRIN 81 MG TABLET EC PO (07:38)
[2022-05-15] MEDS: VENLAFAXINE ER 75 MG CAPSULE PO (07:38)
[2022-05-15] MEDS: ACETAMINOPHEN 500 MG TABLET 1000 MG PO ×3 (07:38→19:11)
[2022-05-15] MEDS: ALBUTEROL INHALER 2 PUFF IH ×4 (07:38→19:11)
[2022-05-15] MEDS: METOPROLOL SUCCINATE (XL) 50 MG TAB 25 MG PO (07:39)
[2022-05-15] MEDS: FOLIC ACID 800 MCG PO (07:39)
[2022-05-15] MEDS: CARBOXYMETHYLCELLULOSE (REFRESH PLUS) TEARS 1 DROP EYE-BOTH ×4 (07:40→19:11)
[2022-05-15] MEDS: NON-FORMULARY MEDICATION 1 EACH INH (07:40)
[2022-05-15] MEDS: NICOTINE 4 MG GUM BUCCAL ×2 (07:45→17:25)
[2022-05-15] MEDS: FUROSEMIDE 40 MG TABLET 60 MG PO (08:35)
[2022-05-15] MEDS: METFORMIN 1,000 MG TABLET 1000 MG PO ×2 (08:35→17:25)
[2022-05-15] MEDS: POTASSIUM CHLORIDE 10 MEQ CAPSULE ER PO (08:36)
--- NOTE | 2022-05-15 11:54 | PC.NURSE ---
COVID OUTBREAK TESTING Resident gave verbal consent for outbreak COVID testing. Resident is currently asymptomatic.? Resident/family will be notified only if resident is positive.
[2022-05-15 13:34] LABS: SARS PCR* Negative SARS-CoV-2 (Negative)
[2022-05-15 15:00] VITALS: TEMP 36.6; O2SAT 95
[2022-05-15] MEDS: SENNOSIDES 1 TAB TABLET PO (19:11)
[2022-05-15 23:00] VITALS: TEMP 36.8; O2SAT 92
[2022-05-16] MEDS: ACETAMINOPHEN 500 MG TABLET 1000 MG PO ×3 (07:02→19:46)
[2022-05-16] MEDS: VENLAFAXINE HCL ER 37.5 MG CAPSULE PO (07:02)
[2022-05-16] MEDS: NON-FORMULARY MEDICATION 1 EACH INH (07:02)
[2022-05-16] MEDS: FOLIC ACID 800 MCG PO (07:02)
[2022-05-16] MEDS: OMEPRAZOLE 20 MG CAPSULE DR PO (07:02)
[2022-05-16] MEDS: METOPROLOL SUCCINATE (XL) 50 MG TAB 25 MG PO (07:02)
[2022-05-16] MEDS: ALBUTEROL INHALER 2 PUFF IH ×4 (07:02→19:47)
[2022-05-16] MEDS: VENLAFAXINE ER 75 MG CAPSULE PO (07:02)
[2022-05-16] MEDS: CARBOXYMETHYLCELLULOSE (REFRESH PLUS) TEARS 1 DROP EYE-BOTH ×4 (07:02→19:47)
[2022-05-16] MEDS: ASPIRIN 81 MG TABLET EC PO (07:02)
[2022-05-16] MEDS: NICOTINE 4 MG GUM BUCCAL (07:03)
[2022-05-16] MEDS: METFORMIN 1,000 MG TABLET 1000 MG PO ×2 (08:34→19:10)
[2022-05-16] MEDS: glipiZIDE 2.5 MG ER TAB PO (08:34)
[2022-05-16] MEDS: FUROSEMIDE 40 MG TABLET 60 MG PO (08:34)
[2022-05-16] MEDS: POTASSIUM CHLORIDE 10 MEQ CAPSULE ER PO (08:34)
[2022-05-16 10:12] VITALS: TEMP 36.6; O2SAT 95
--- NOTE | 2022-05-16 10:30 | PC.NURSE ---
Order: Melatonin 3mg PO HS PRN by Anselmo DWYER.
[2022-05-16] MEDS: OXYCODONE 5 MG TABLET PO (12:27)
[2022-05-16] MEDS: SENNOSIDES 1 TAB TABLET PO (19:47)
[2022-05-16 21:38] VITALS: TEMP 37; O2SAT 91
[2022-05-16 23:00] VITALS: TEMP 36.6; O2SAT 91
--- NOTE | 2022-05-17 01:08 | PC.NURSE ---
WEEKLY CHARTING - WEEK 4: Vital signs reviewed - no concerns. Temporary and comprehensive care plan reviewed - no change. No documented behaviors in the last month. Receives venlafaxine 112.5mg daily with no noted adverse effects. New order on 05/16 for melatonin 3mg at HS PRN. Mild hearing impairment. Staff adjust voice as needed. Visual impairment is corrected with glasses. Cognitively intact. Restarted loperamide 2mg Q2 hours PRN on 05/09. May self administer medications after nursing set-up. Health condition stable at this time.
[2022-05-17 07:00] VITALS: TEMP 36.1; O2SAT 95
[2022-05-17] MEDS: ASPIRIN 81 MG TABLET EC PO (07:16)
[2022-05-17] MEDS: glipiZIDE 2.5 MG ER TAB PO (07:16)
[2022-05-17] MEDS: METFORMIN 1,000 MG TABLET 1000 MG PO ×2 (07:16→17:25)
[2022-05-17] MEDS: OMEPRAZOLE 20 MG CAPSULE DR PO (07:16)
[2022-05-17] MEDS: FUROSEMIDE 40 MG TABLET 60 MG PO (07:16)
[2022-05-17] MEDS: VENLAFAXINE ER 75 MG CAPSULE PO (07:16)
[2022-05-17] MEDS: ALBUTEROL INHALER 2 PUFF IH ×4 (07:16→19:14)
[2022-05-17] MEDS: ACETAMINOPHEN 500 MG TABLET 1000 MG PO ×3 (07:16→19:14)
[2022-05-17] MEDS: NON-FORMULARY MEDICATION 1 EACH INH (07:17)
[2022-05-17] MEDS: METOPROLOL SUCCINATE (XL) 50 MG TAB 25 MG PO (07:17)
[2022-05-17] MEDS: FOLIC ACID 800 MCG PO (07:17)
[2022-05-17] MEDS: POTASSIUM CHLORIDE 10 MEQ CAPSULE ER PO (07:17)
[2022-05-17] MEDS: CARBOXYMETHYLCELLULOSE (REFRESH PLUS) TEARS 1 DROP EYE-BOTH ×4 (07:17→19:14)
[2022-05-17] MEDS: VENLAFAXINE HCL ER 37.5 MG CAPSULE PO (07:17)
[2022-05-17] MEDS: NICOTINE 4 MG GUM BUCCAL ×2 (07:18→17:24)
--- NOTE | 2022-05-17 07:34 | PC.NURSE ---
Week #4: Comprehensive and temporary care plan reviewed. No changes made. Nothing added to temporary care plan. No changes noted in communication, hearing, vision, or orientation. She does communicate needs. Is [facility] in some environment. No device used. Speak and adjust tone of voice. Vision impairment corrected by glasses. Cognition intact. Chronic health condition stable. Vital signs reviewed,no concerns. Is able to self administer medications. Nurse may leave medications and check they are taken. Mood/Behavior: No issues the last month. Continues on Effexor 112.5mg daily with no adverse effects noted. 05/16/22 Melatonin 3mg PRN @ HS ordered.
[2022-05-17 15:00] VITALS: TEMP 36.7; O2SAT 94
[2022-05-17] MEDS: SENNOSIDES 1 TAB TABLET PO (19:15)
[2022-05-17 23:00] VITALS: TEMP 36.8; O2SAT 92
[2022-05-18] MEDS: OMEPRAZOLE 20 MG CAPSULE DR PO (06:30)
[2022-05-18 07:00] VITALS: BP 114/73; PULSE 97; RESP 20; TEMP 37.2; O2SAT 96; BMI 20.9
[2022-05-18] MEDS: VENLAFAXINE ER 75 MG CAPSULE PO (07:13)
[2022-05-18] MEDS: glipiZIDE 2.5 MG ER TAB PO (07:13)
[2022-05-18] MEDS: METOPROLOL SUCCINATE (XL) 50 MG TAB 25 MG PO (07:13)
[2022-05-18] MEDS: ACETAMINOPHEN 500 MG TABLET 1000 MG PO ×3 (07:13→19:41)
[2022-05-18] MEDS: FUROSEMIDE 40 MG TABLET 60 MG PO (07:13)
[2022-05-18] MEDS: ASPIRIN 81 MG TABLET EC PO (07:13)
[2022-05-18] MEDS: METFORMIN 1,000 MG TABLET 1000 MG PO ×2 (07:13→19:15)
[2022-05-18] MEDS: ALBUTEROL INHALER 2 PUFF IH ×4 (07:13→19:41)
[2022-05-18] MEDS: VENLAFAXINE HCL ER 37.5 MG CAPSULE PO (07:14)
[2022-05-18] MEDS: FOLIC ACID 800 MCG PO (07:14)
[2022-05-18] MEDS: POTASSIUM CHLORIDE 10 MEQ CAPSULE ER PO (07:14)
[2022-05-18] MEDS: CARBOXYMETHYLCELLULOSE (REFRESH PLUS) TEARS 1 DROP EYE-BOTH ×4 (07:14→19:41)
[2022-05-18] MEDS: NON-FORMULARY MEDICATION 1 EACH INH (07:14)
[2022-05-18] MEDS: NICOTINE 4 MG GUM BUCCAL (07:15)
--- NOTE | 2022-05-18 08:42 | PC.SPIRITC ---
Late entry from 05/17/22: I offered a palm branch go Tran in light of Palm Sunday coming up and not being up to attending sabianist. She expressed gratitude; visit provided for [facility] resources and connection.
[2022-05-18 16:51] VITALS: TEMP 36.6; O2SAT 96
[2022-05-18] MEDS: SENNOSIDES 1 TAB TABLET PO (19:41)
[2022-05-18 23:00] VITALS: TEMP 36.7; O2SAT 93
[2022-05-19] MEDS: OMEPRAZOLE 20 MG CAPSULE DR PO (07:00)
[2022-05-19] MEDS: ALBUTEROL INHALER 2 PUFF IH ×4 (07:00→19:35)
[2022-05-19] MEDS: METOPROLOL SUCCINATE (XL) 50 MG TAB 25 MG PO (07:00)
[2022-05-19] MEDS: ASPIRIN 81 MG TABLET EC PO (07:00)
[2022-05-19] MEDS: glipiZIDE 2.5 MG ER TAB PO (07:00)
[2022-05-19] MEDS: ACETAMINOPHEN 500 MG TABLET 1000 MG PO ×3 (07:00→19:35)
[2022-05-19] MEDS: VENLAFAXINE ER 75 MG CAPSULE PO (07:00)
[2022-05-19] MEDS: NON-FORMULARY MEDICATION 1 EACH INH (07:01)
[2022-05-19] MEDS: VENLAFAXINE HCL ER 37.5 MG CAPSULE PO (07:01)
[2022-05-19] MEDS: CARBOXYMETHYLCELLULOSE (REFRESH PLUS) TEARS 1 DROP EYE-BOTH ×4 (07:01→19:35)
[2022-05-19] MEDS: NICOTINE 4 MG GUM BUCCAL ×2 (07:20→17:23)
[2022-05-19] MEDS: POTASSIUM CHLORIDE 10 MEQ CAPSULE ER PO (08:17)
[2022-05-19] MEDS: FUROSEMIDE 40 MG TABLET 60 MG PO (08:17)
[2022-05-19] MEDS: METFORMIN 1,000 MG TABLET 1000 MG PO ×2 (08:17→17:23)
[2022-05-19 09:45] VITALS: TEMP 36.8; O2SAT 97
[2022-05-19 15:00] VITALS: TEMP 37; O2SAT 94
[2022-05-19] MEDS: SENNOSIDES 1 TAB TABLET PO (20:15)
[2022-05-19 23:00] VITALS: TEMP 36.9; O2SAT 92
[2022-05-20] MEDS: OMEPRAZOLE 20 MG CAPSULE DR PO (06:32)
[2022-05-20] MEDS: NICOTINE 4 MG GUM BUCCAL ×2 (07:02→18:36)
[2022-05-20] MEDS: ACETAMINOPHEN 500 MG TABLET 1000 MG PO ×3 (07:03→20:17)
[2022-05-20] MEDS: VENLAFAXINE ER 75 MG CAPSULE PO (07:03)
[2022-05-20] MEDS: ASPIRIN 81 MG TABLET EC PO (07:03)
[2022-05-20] MEDS: FOLIC ACID 800 MCG PO (07:03)
[2022-05-20] MEDS: FUROSEMIDE 40 MG TABLET 60 MG PO (07:03)
[2022-05-20] MEDS: ALBUTEROL INHALER 2 PUFF IH ×4 (07:03→20:17)
[2022-05-20] MEDS: NON-FORMULARY MEDICATION 1 EACH INH (07:04)
[2022-05-20] MEDS: VENLAFAXINE HCL ER 37.5 MG CAPSULE PO (07:04)
[2022-05-20] MEDS: CARBOXYMETHYLCELLULOSE (REFRESH PLUS) TEARS 1 DROP EYE-BOTH ×4 (07:04→20:17)
[2022-05-20] MEDS: METOPROLOL SUCCINATE (XL) 50 MG TAB 25 MG PO (08:29)
[2022-05-20] MEDS: glipiZIDE 2.5 MG ER TAB PO (08:29)
[2022-05-20] MEDS: POTASSIUM CHLORIDE 10 MEQ CAPSULE ER PO (08:29)
[2022-05-20] MEDS: METFORMIN 1,000 MG TABLET 1000 MG PO ×2 (08:29→17:04)
[2022-05-20 10:18] VITALS: TEMP 36.9; O2SAT 97
[2022-05-20 15:00] VITALS: TEMP 36.4; O2SAT 94
[2022-05-20] MEDS: OXYCODONE 5 MG TABLET PO (18:36)
[2022-05-20] MEDS: SENNOSIDES 1 TAB TABLET PO (20:17)
--- NOTE | 2022-05-20 21:39 | PC.NURSE ---
Pain: Resident C/O 10/10 pain to lower back. Initial interventions including cold pack, warm blanket, and rest were not effective. PRN Oxycodone 5mg given - resident reported pain alleviation during follow-up. Will continue to monitor.
[2022-05-20 23:58] VITALS: TEMP 36.4; O2SAT 96
[2022-05-21] MEDS: ACETAMINOPHEN 500 MG TABLET 1000 MG PO ×3 (07:15→20:48)
[2022-05-21] MEDS: OMEPRAZOLE 20 MG CAPSULE DR PO (07:15)
[2022-05-21] MEDS: ALBUTEROL INHALER 2 PUFF IH ×4 (07:15→20:49)
[2022-05-21] MEDS: glipiZIDE 2.5 MG ER TAB PO (07:15)
[2022-05-21] MEDS: ASPIRIN 81 MG TABLET EC PO (07:15)
[2022-05-21] MEDS: VENLAFAXINE ER 75 MG CAPSULE PO (07:15)
[2022-05-21] MEDS: NON-FORMULARY MEDICATION 1 EACH INH (07:16)
[2022-05-21] MEDS: FOLIC ACID 800 MCG PO (07:16)
[2022-05-21] MEDS: CARBOXYMETHYLCELLULOSE (REFRESH PLUS) TEARS 1 DROP EYE-BOTH ×3 (07:16→16:02)
[2022-05-21] MEDS: METOPROLOL SUCCINATE (XL) 50 MG TAB 25 MG PO (07:16)
[2022-05-21] MEDS: VENLAFAXINE HCL ER 37.5 MG CAPSULE PO (07:16)
[2022-05-21] MEDS: NICOTINE 4 MG GUM BUCCAL ×2 (07:30→17:27)
[2022-05-21] MEDS: POTASSIUM CHLORIDE 10 MEQ CAPSULE ER PO (08:29)
[2022-05-21] MEDS: METFORMIN 1,000 MG TABLET 1000 MG PO ×2 (08:29→17:16)
[2022-05-21] MEDS: FUROSEMIDE 40 MG TABLET 60 MG PO (08:29)
[2022-05-21 09:51] VITALS: TEMP 36.4; O2SAT 95
[2022-05-21 15:00] VITALS: TEMP 36.1; O2SAT 92
[2022-05-21] MEDS: SENNOSIDES 1 TAB TABLET PO (20:49)
[2022-05-21 23:40] VITALS: TEMP 36.6; O2SAT 91
[2022-05-22] MEDS: OMEPRAZOLE 20 MG CAPSULE DR PO (06:54)
[2022-05-22 07:00] VITALS: TEMP 36.5; O2SAT 98
[2022-05-22] MEDS: FOLIC ACID 800 MCG PO (07:02)
[2022-05-22] MEDS: ACETAMINOPHEN 500 MG TABLET 1000 MG PO ×3 (07:02→19:50)
[2022-05-22] MEDS: ASPIRIN 81 MG TABLET EC PO (07:02)
[2022-05-22] MEDS: METFORMIN 1,000 MG TABLET 1000 MG PO ×2 (07:02→17:39)
[2022-05-22] MEDS: VENLAFAXINE ER 75 MG CAPSULE PO (07:02)
[2022-05-22] MEDS: ALBUTEROL INHALER 2 PUFF IH ×4 (07:02→19:50)
[2022-05-22] MEDS: glipiZIDE 2.5 MG ER TAB PO (07:02)
[2022-05-22] MEDS: METOPROLOL SUCCINATE (XL) 50 MG TAB 25 MG PO (07:02)
[2022-05-22] MEDS: NON-FORMULARY MEDICATION 1 EACH INH (07:02)
[2022-05-22] MEDS: CARBOXYMETHYLCELLULOSE (REFRESH PLUS) TEARS 1 DROP EYE-BOTH ×4 (07:03→19:50)
[2022-05-22] MEDS: VENLAFAXINE HCL ER 37.5 MG CAPSULE PO (07:03)
[2022-05-22] MEDS: FUROSEMIDE 40 MG TABLET 60 MG PO (08:27)
[2022-05-22] MEDS: POTASSIUM CHLORIDE 10 MEQ CAPSULE ER PO (08:27)
--- NOTE | 2022-05-22 11:05 | PC.NURSE ---
COVID OUTBREAK TESTING Resident and residents family gave verbal consent for outbreak COVID testing. Resident is currently asymptomatic.? Resident/family will be notified only if resident is positive.
[2022-05-22 14:05] LABS: SARS PCR* Negative SARS-CoV-2 (Negative)
[2022-05-22 15:00] VITALS: TEMP 36.3; O2SAT 93
[2022-05-22] MEDS: NICOTINE 4 MG GUM BUCCAL (17:39)
[2022-05-22] MEDS: SENNOSIDES 1 TAB TABLET PO (19:50)
[2022-05-23 01:16] VITALS: TEMP 36.7; O2SAT 93
[2022-05-23] MEDS: OMEPRAZOLE 20 MG CAPSULE DR PO (06:38)
[2022-05-23 06:47] VITALS: TEMP 36.9; O2SAT 97
[2022-05-23] MEDS: NICOTINE 4 MG GUM BUCCAL (06:47)
[2022-05-23] MEDS: ALBUTEROL INHALER 2 PUFF IH ×4 (07:02→19:56)
[2022-05-23] MEDS: ASPIRIN 81 MG TABLET EC PO (07:02)
[2022-05-23] MEDS: ACETAMINOPHEN 500 MG TABLET 1000 MG PO ×3 (07:02→19:56)
[2022-05-23] MEDS: CARBOXYMETHYLCELLULOSE (REFRESH PLUS) TEARS 1 DROP EYE-BOTH ×4 (07:02→19:56)
[2022-05-23] MEDS: VENLAFAXINE ER 75 MG CAPSULE PO (07:02)
[2022-05-23] MEDS: FOLIC ACID 800 MCG PO (07:02)
[2022-05-23] MEDS: NON-FORMULARY MEDICATION 1 EACH INH (07:02)
[2022-05-23] MEDS: glipiZIDE 2.5 MG ER TAB PO (07:02)
[2022-05-23] MEDS: VENLAFAXINE HCL ER 37.5 MG CAPSULE PO (07:02)
[2022-05-23] MEDS: METOPROLOL SUCCINATE (XL) 50 MG TAB 25 MG PO (07:02)
[2022-05-23 07:42] LABS: Hemoglobin A1C* 8.09 % (0-5.6)
[2022-05-23] MEDS: METFORMIN 1,000 MG TABLET 1000 MG PO ×2 (08:37→18:48)
[2022-05-23] MEDS: POTASSIUM CHLORIDE 10 MEQ CAPSULE ER PO (08:37)
[2022-05-23] MEDS: FUROSEMIDE 40 MG TABLET 60 MG PO (08:37)
--- NOTE | 2022-05-23 11:02 | PC.NURSE ---
A1C: Result (8.09) reviewed by Anselmo DWYER. Order: Increase Glipizide to 5mg daily.
[2022-05-23 17:10] VITALS: TEMP 37.2; O2SAT 95
[2022-05-23] MEDS: SENNOSIDES 1 TAB TABLET PO (19:56)
[2022-05-23] MEDS: OXYCODONE 5 MG TABLET PO (19:57)
[2022-05-23 23:00] VITALS: TEMP 36.9; O2SAT 91
--- NOTE | 2022-05-24 01:45 | PC.NURSE ---
WEEKLY CHARTING ? WEEK 1: Vital signs reviewed ? no concerns. Temporary and comprehensive care plan reviewed ? no change. HX of chronic right shoulder pain. Receives acetaminophen 1000mg TID and oxycodone 5mg Q6 hours PRN for pain management which is noted to be effective. PRN oxycodone utilized x19 in the last month. Is independent with dressing, grooming, and oral care. Assist of 1 as needed. Assist of 1 with weekly bath. Eats independently. Reports difficulty chewing with some foods. Receives regular diet and selects foods that fit chewing abilities. Has snacks TID. Weight stable. ?
[2022-05-24] MEDS: OMEPRAZOLE 20 MG CAPSULE DR PO (06:27)
[2022-05-24 06:34] VITALS: TEMP 36.9; O2SAT 95
[2022-05-24] MEDS: NICOTINE 4 MG GUM BUCCAL ×2 (06:34→17:32)
[2022-05-24] MEDS: ALBUTEROL INHALER 2 PUFF IH ×4 (07:01→19:46)
[2022-05-24] MEDS: ACETAMINOPHEN 500 MG TABLET 1000 MG PO ×3 (07:01→19:46)
[2022-05-24] MEDS: VENLAFAXINE ER 75 MG CAPSULE PO (07:01)
[2022-05-24] MEDS: ASPIRIN 81 MG TABLET EC PO (07:01)
[2022-05-24] MEDS: NON-FORMULARY MEDICATION 1 EACH INH (07:02)
[2022-05-24] MEDS: glipiZIDE 2.5 MG ER TAB 5 MG PO (07:02)
[2022-05-24] MEDS: FOLIC ACID 800 MCG PO (07:02)
[2022-05-24] MEDS: VENLAFAXINE HCL ER 37.5 MG CAPSULE PO (07:02)
[2022-05-24] MEDS: METOPROLOL SUCCINATE (XL) 50 MG TAB 25 MG PO (07:02)
[2022-05-24] MEDS: CARBOXYMETHYLCELLULOSE (REFRESH PLUS) TEARS 1 DROP EYE-BOTH ×4 (07:02→19:46)
--- NOTE | 2022-05-24 07:41 | PC.NURSE ---
Week #1-ADL's: Comprehensive and temporary care plan reviewed. No changes made & nothing added to temporary care plan. Resident is independent with dressing, grooming, oral cares and feeding. Will ask for assist as needed. Needs supervision of one with bathing. Is on regular diet per her request. No problems with chewing/swallowing reported. Receives nutritional supplements which she provides her own. Occasionally will ask.Vital signs reviewed, no concerns. Pain: No complain of pain the last month. Has chronic (R) shoulder pain managed with Tylenol 1000mg TID, & Oxycodone 5mg Q6H PRN. Is able to verbalize need for pain.
[2022-05-24] MEDS: FUROSEMIDE 40 MG TABLET 60 MG PO (07:45)
[2022-05-24] MEDS: METFORMIN 1,000 MG TABLET 1000 MG PO ×2 (07:46→17:31)
[2022-05-24] MEDS: POTASSIUM CHLORIDE 10 MEQ CAPSULE ER PO (07:46)
[2022-05-24 15:00] VITALS: TEMP 36.5; O2SAT 96
[2022-05-24] MEDS: SENNOSIDES 1 TAB TABLET PO (19:46)
[2022-05-24 23:00] VITALS: TEMP 36.6; O2SAT 92
[2022-05-25] MEDS: OMEPRAZOLE 20 MG CAPSULE DR PO (07:24)
[2022-05-25] MEDS: NON-FORMULARY MEDICATION 1 EACH INH (07:25)
[2022-05-25] MEDS: METOPROLOL SUCCINATE (XL) 50 MG TAB 25 MG PO (07:25)
[2022-05-25] MEDS: CARBOXYMETHYLCELLULOSE (REFRESH PLUS) TEARS 1 DROP EYE-BOTH ×4 (07:25→19:20)
[2022-05-25] MEDS: ACETAMINOPHEN 500 MG TABLET 1000 MG PO ×3 (07:25→19:20)
[2022-05-25] MEDS: FOLIC ACID 800 MCG PO (07:25)
[2022-05-25] MEDS: ALBUTEROL INHALER 2 PUFF IH ×4 (07:25→19:20)
[2022-05-25] MEDS: glipiZIDE 2.5 MG ER TAB 5 MG PO (07:25)
[2022-05-25] MEDS: VENLAFAXINE HCL ER 37.5 MG CAPSULE PO (07:25)
[2022-05-25] MEDS: ASPIRIN 81 MG TABLET EC PO (07:25)
[2022-05-25] MEDS: VENLAFAXINE ER 75 MG CAPSULE PO (07:25)
[2022-05-25] MEDS: POTASSIUM CHLORIDE 10 MEQ CAPSULE ER PO (08:15)
[2022-05-25] MEDS: METFORMIN 1,000 MG TABLET 1000 MG PO ×2 (08:15→18:31)
[2022-05-25] MEDS: FUROSEMIDE 40 MG TABLET 60 MG PO (08:15)
[2022-05-25] MEDS: NON-FORMULARY MEDICATION 1 EACH SUBCUT (11:03)
[2022-05-25 12:55] VITALS: BP 127/75; PULSE 72; RESP 20; TEMP 36.4; O2SAT 98; BMI 20.9
[2022-05-25] MEDS: NICOTINE 4 MG GUM BUCCAL ×2 (14:11→17:21)
[2022-05-25 15:11] VITALS: TEMP 36.7; O2SAT 97
[2022-05-25] MEDS: OXYCODONE 5 MG TABLET PO (17:20)
[2022-05-25] MEDS: SENNOSIDES 1 TAB TABLET PO (19:21)
[2022-05-25 23:00] VITALS: TEMP 36.6; O2SAT 92
[2022-05-26] MEDS: OMEPRAZOLE 20 MG CAPSULE DR PO (06:24)
[2022-05-26] MEDS: ACETAMINOPHEN 500 MG TABLET 1000 MG PO (07:07)
[2022-05-26] MEDS: ALBUTEROL INHALER 2 PUFF IH (07:07)
[2022-05-26] MEDS: VENLAFAXINE ER 75 MG CAPSULE PO (07:07)
[2022-05-26] MEDS: ASPIRIN 81 MG TABLET EC PO (07:07)
[2022-05-26] MEDS: METOPROLOL SUCCINATE (XL) 50 MG TAB 25 MG PO (07:08)
[2022-05-26] MEDS: METFORMIN 1,000 MG TABLET 1000 MG PO (07:08)
[2022-05-26] MEDS: VENLAFAXINE HCL ER 37.5 MG CAPSULE PO (07:08)
[2022-05-26] MEDS: NON-FORMULARY MEDICATION 1 EACH INH (07:08)
[2022-05-26] MEDS: CARBOXYMETHYLCELLULOSE (REFRESH PLUS) TEARS 1 DROP EYE-BOTH (07:08)
[2022-05-26] MEDS: POTASSIUM CHLORIDE 10 MEQ CAPSULE ER PO (07:08)
[2022-05-26] MEDS: glipiZIDE 2.5 MG ER TAB 5 MG PO (07:08)
[2022-05-26] MEDS: NICOTINE 4 MG GUM BUCCAL (07:09)
--- NOTE | 2022-05-26 10:21 | PC.NURSE ---
Resident leave of absence- Today 05/26/22 at 1020 All scheduled medications, PRN Nicotine gum of 3 and one card of 3 tabs PRN Oxycodone sent with resident. Resident is expected to return on 05/28/22.
--- NOTE | 2022-05-28 13:11 | PC.NURSE ---
Resident return from outing at 1150 accompanied by her son.
[2022-05-28 15:00] VITALS: TEMP 36.5; O2SAT 94
[2022-05-28] MEDS: CARBOXYMETHYLCELLULOSE (REFRESH PLUS) TEARS 1 DROP EYE-BOTH ×2 (16:12→19:09)
[2022-05-28] MEDS: ALBUTEROL INHALER 2 PUFF IH ×2 (16:12→19:09)
[2022-05-28] MEDS: METFORMIN 1,000 MG TABLET 1000 MG PO (17:09)
[2022-05-28] MEDS: NICOTINE 4 MG GUM BUCCAL (17:10)
[2022-05-28] MEDS: SENNOSIDES 1 TAB TABLET PO (19:09)
[2022-05-28] MEDS: ACETAMINOPHEN 500 MG TABLET 1000 MG PO (19:09)
[2022-05-28] MEDS: MELATONIN 3 MG TABLET PO (21:30)
--- NOTE | 2022-05-28 21:30 | PC.NURSE ---
Insomnia: Resident requested PRN Melatonin at 2130.
[2022-05-28 23:00] VITALS: TEMP 36.4; O2SAT 95
[2022-05-29] MEDS: OMEPRAZOLE 20 MG CAPSULE DR PO (06:35)
[2022-05-29 07:00] VITALS: TEMP 37.1; O2SAT 97
[2022-05-29] MEDS: ASPIRIN 81 MG TABLET EC PO (07:17)
[2022-05-29] MEDS: glipiZIDE 2.5 MG ER TAB 5 MG PO (07:17)
[2022-05-29] MEDS: ACETAMINOPHEN 500 MG TABLET 1000 MG PO ×3 (07:17→20:02)
[2022-05-29] MEDS: METOPROLOL SUCCINATE (XL) 50 MG TAB 25 MG PO (07:17)
[2022-05-29] MEDS: ALBUTEROL INHALER 2 PUFF IH ×4 (07:17→20:02)
[2022-05-29] MEDS: VENLAFAXINE ER 75 MG CAPSULE PO (07:17)
[2022-05-29] MEDS: METFORMIN 1,000 MG TABLET 1000 MG PO ×2 (07:17→17:24)
[2022-05-29] MEDS: CARBOXYMETHYLCELLULOSE (REFRESH PLUS) TEARS 1 DROP EYE-BOTH ×4 (07:18→20:02)
[2022-05-29] MEDS: VENLAFAXINE HCL ER 37.5 MG CAPSULE PO (07:18)
[2022-05-29] MEDS: NON-FORMULARY MEDICATION 1 EACH INH (07:18)
[2022-05-29] MEDS: FOLIC ACID 800 MCG PO (07:18)
[2022-05-29] MEDS: NICOTINE 4 MG GUM BUCCAL ×2 (07:19→17:25)
[2022-05-29] MEDS: POTASSIUM CHLORIDE 10 MEQ CAPSULE ER PO (08:11)
[2022-05-29] MEDS: FUROSEMIDE 40 MG TABLET 60 MG PO (08:11)
--- NOTE | 2022-05-29 12:31 | PC.NURSE ---
COVID OUTBREAK TESTING Resident gave verbal consent for outbreak COVID testing. Resident is currently asymptomatic.? Resident/family will be notified only if resident is positive.
[2022-05-29 13:23] LABS: SARS PCR* Negative SARS-CoV-2 (Negative)
[2022-05-29 15:00] VITALS: TEMP 36.6; O2SAT 96
[2022-05-29] MEDS: MELATONIN 3 MG TABLET PO (18:21)
[2022-05-29] MEDS: SENNOSIDES 1 TAB TABLET PO (20:02)
[2022-05-29 23:00] VITALS: TEMP 36.5; O2SAT 91
[2022-05-30 07:00] VITALS: TEMP 36.6; O2SAT 93
[2022-05-30] MEDS: ALBUTEROL INHALER 2 PUFF IH ×4 (07:42→19:08)
[2022-05-30] MEDS: OMEPRAZOLE 20 MG CAPSULE DR PO (07:42)
[2022-05-30] MEDS: METOPROLOL SUCCINATE (XL) 50 MG TAB 25 MG PO (07:43)
[2022-05-30] MEDS: glipiZIDE 2.5 MG ER TAB 5 MG PO (07:43)
[2022-05-30] MEDS: ASPIRIN 81 MG TABLET EC PO (07:43)
[2022-05-30] MEDS: VENLAFAXINE ER 75 MG CAPSULE PO (07:43)
[2022-05-30] MEDS: ACETAMINOPHEN 500 MG TABLET 1000 MG PO ×3 (07:43→19:07)
[2022-05-30] MEDS: VENLAFAXINE HCL ER 37.5 MG CAPSULE PO (07:44)
[2022-05-30] MEDS: FOLIC ACID 800 MCG PO (07:44)
[2022-05-30] MEDS: CARBOXYMETHYLCELLULOSE (REFRESH PLUS) TEARS 1 DROP EYE-BOTH ×4 (07:44→19:08)
[2022-05-30] MEDS: NON-FORMULARY MEDICATION 1 EACH INH (07:44)
[2022-05-30] MEDS: NICOTINE 4 MG GUM BUCCAL ×2 (07:49→17:07)
[2022-05-30] MEDS: FUROSEMIDE 40 MG TABLET 60 MG PO (08:27)
[2022-05-30] MEDS: POTASSIUM CHLORIDE 10 MEQ CAPSULE ER PO (08:28)
[2022-05-30] MEDS: METFORMIN 1,000 MG TABLET 1000 MG PO ×2 (08:28→17:07)
[2022-05-30 14:58] VITALS: BMI 20.9
[2022-05-30 15:00] VITALS: TEMP 36.6; O2SAT 96
[2022-05-30] MEDS: SENNOSIDES 1 TAB TABLET PO (19:08)
[2022-05-30 23:00] VITALS: TEMP 36.7; O2SAT 95
--- NOTE | 2022-05-31 01:48 | PC.NURSE ---
WEEKLY CHARTING - WEEK 2: Vital signs reviewed - no concerns. Temporary and comprehensive care plan reviewed - no change. Continues independent with transfers, ambulation, and bed mobility. Uses 4WW for ambulation. Bilateral 1/4 side rails to promote independence with bed mobility. Per last fall risk assessment, resident remains at low risk for falls. Fall interventions: call light and walker within reach, bed in low position with brakes locked, keep area free of clutter.
[2022-05-31] MEDS: OMEPRAZOLE 20 MG CAPSULE DR PO (06:28)
--- NOTE | 2022-05-31 06:53 | PC.NURSE ---
Weekly Charting - Week 2 Mobility: Comprehensive & temporary care plan reviewed. No changes made. Nothing added to temporary care plan. Resident is independent with transfers, ambulation, and bed mobility. Transfers/ambulates with a 4ww. Uses wheelchair when going for outings and is independent with propulsion, assist as needed. Bilateral 1/4 side rails up at all times to promote independence/positioning. Vital signs reviewed, no concerns. Fall: No falls the past month. Remains a low fall risk according to assessment done on 03/08/22.
--- NOTE | 2022-05-31 06:55 | PC.NURSE ---
Admit Covid day 3 swab test done and sent to lab. Will notify resident of result.
[2022-05-31 07:00] VITALS: TEMP 36.4; O2SAT 94
[2022-05-31] MEDS: NICOTINE 4 MG GUM BUCCAL ×2 (07:05→17:13)
[2022-05-31] MEDS: ACETAMINOPHEN 500 MG TABLET 1000 MG PO ×3 (07:11→19:27)
[2022-05-31] MEDS: glipiZIDE 2.5 MG ER TAB 5 MG PO (07:11)
[2022-05-31] MEDS: ALBUTEROL INHALER 2 PUFF IH ×4 (07:11→19:27)
[2022-05-31] MEDS: ASPIRIN 81 MG TABLET EC PO (07:11)
[2022-05-31] MEDS: METOPROLOL SUCCINATE (XL) 50 MG TAB 25 MG PO (07:11)
[2022-05-31] MEDS: VENLAFAXINE ER 75 MG CAPSULE PO (07:11)
[2022-05-31] MEDS: POTASSIUM CHLORIDE 10 MEQ CAPSULE ER PO (07:12)
[2022-05-31] MEDS: NON-FORMULARY MEDICATION 1 EACH INH (07:12)
[2022-05-31] MEDS: CARBOXYMETHYLCELLULOSE (REFRESH PLUS) TEARS 1 DROP EYE-BOTH ×4 (07:12→19:27)
[2022-05-31] MEDS: VENLAFAXINE HCL ER 37.5 MG CAPSULE PO (07:12)
[2022-05-31] MEDS: FOLIC ACID 800 MCG PO (07:12)
[2022-05-31 07:27] LABS: SARS PCR* Negative SARS-CoV-2 (Negative)
[2022-05-31] MEDS: METFORMIN 1,000 MG TABLET 1000 MG PO ×2 (08:19→17:01)
[2022-05-31] MEDS: FUROSEMIDE 40 MG TABLET 60 MG PO (08:19)
--- NOTE | 2022-05-31 09:53 | PC.NURSE ---
Resident updated of Covid swab test result is negative.
--- NOTE | 2022-05-31 10:45 | PC.PHA1 ---
AEROSPACE PHYSIOLOGICAL TECHNICIAN PHARMACIST'S MEDICATION REVIEW: MEDICATION MONITORING:Venlafaxine 112.5 mg daily for generalized anxiety and major depression. IRREGULARITY OR COMMENTS:Patient doing well on her current medication regimen. . SUGGESTED COURSE OF ACTION TAKEN:No medication concerns this review.
[2022-05-31 15:00] VITALS: TEMP 36.6; O2SAT 94
[2022-05-31] MEDS: SENNOSIDES 1 TAB TABLET PO (19:27)
[2022-05-31] MEDS: MELATONIN 3 MG TABLET PO (19:28)
--- NOTE | 2022-05-31 19:28 | PC.NURSE ---
Insomnia: Resident requested PRN Melatonin at 1927. She is normally in bed by 1899.
[2022-05-31 23:00] VITALS: TEMP 36.7; O2SAT 91
[2022-06-01] MEDS: OMEPRAZOLE 20 MG CAPSULE DR PO (06:40)
[2022-06-01] MEDS: VENLAFAXINE ER 75 MG CAPSULE PO (07:27)
[2022-06-01] MEDS: ALBUTEROL INHALER 2 PUFF IH ×4 (07:27→19:00)
[2022-06-01] MEDS: ASPIRIN 81 MG TABLET EC PO (07:27)
[2022-06-01] MEDS: ACETAMINOPHEN 500 MG TABLET 1000 MG PO ×3 (07:27→19:00)
[2022-06-01] MEDS: METOPROLOL SUCCINATE (XL) 50 MG TAB 25 MG PO (07:28)
[2022-06-01] MEDS: FOLIC ACID 800 MCG PO (07:28)
[2022-06-01] MEDS: NON-FORMULARY MEDICATION 1 EACH INH (07:28)
[2022-06-01] MEDS: glipiZIDE 2.5 MG ER TAB 5 MG PO (07:28)
[2022-06-01] MEDS: VENLAFAXINE HCL ER 37.5 MG CAPSULE PO (07:29)
[2022-06-01] MEDS: CARBOXYMETHYLCELLULOSE (REFRESH PLUS) TEARS 1 DROP EYE-BOTH ×4 (07:29→19:01)
[2022-06-01] MEDS: NICOTINE 4 MG GUM BUCCAL ×2 (07:30→17:01)
[2022-06-01] MEDS: METFORMIN 1,000 MG TABLET 1000 MG PO ×2 (08:28→17:01)
[2022-06-01] MEDS: POTASSIUM CHLORIDE 10 MEQ CAPSULE ER PO (08:28)
[2022-06-01] MEDS: FUROSEMIDE 40 MG TABLET 60 MG PO (08:28)
[2022-06-01 10:21] VITALS: TEMP 36.6; O2SAT 93
[2022-06-01 11:18] VITALS: BP 124/67; PULSE 89; RESP 18; TEMP 36.6; O2SAT 93; BMI 21.2
[2022-06-01 15:00] VITALS: TEMP 36.2; O2SAT 93
[2022-06-01] MEDS: SENNOSIDES 1 TAB TABLET PO (19:01)
[2022-06-01 23:00] VITALS: TEMP 36.6; O2SAT 94
[2022-06-02] MEDS: OMEPRAZOLE 20 MG CAPSULE DR PO (06:42)
[2022-06-02 07:00] VITALS: TEMP 36.3; O2SAT 93
[2022-06-02] MEDS: NICOTINE 4 MG GUM BUCCAL (07:00)
--- NOTE | 2022-06-02 07:18 | PC.NURSE ---
Admit Covid swab day 5 done and sent to lab. Will notify resident of result.
[2022-06-02] MEDS: ALBUTEROL INHALER 2 PUFF IH ×4 (07:36→19:19)
[2022-06-02] MEDS: ASPIRIN 81 MG TABLET EC PO (07:36)
[2022-06-02] MEDS: FUROSEMIDE 40 MG TABLET 60 MG PO (07:36)
[2022-06-02] MEDS: VENLAFAXINE ER 75 MG CAPSULE PO (07:36)
[2022-06-02] MEDS: ACETAMINOPHEN 500 MG TABLET 1000 MG PO ×3 (07:36→19:19)
[2022-06-02] MEDS: METOPROLOL SUCCINATE (XL) 50 MG TAB 25 MG PO (07:37)
[2022-06-02] MEDS: VENLAFAXINE HCL ER 37.5 MG CAPSULE PO (07:37)
[2022-06-02] MEDS: glipiZIDE 2.5 MG ER TAB 5 MG PO (07:37)
[2022-06-02] MEDS: POTASSIUM CHLORIDE 10 MEQ CAPSULE ER PO (07:37)
[2022-06-02] MEDS: CARBOXYMETHYLCELLULOSE (REFRESH PLUS) TEARS 1 DROP EYE-BOTH ×4 (07:37→19:19)
[2022-06-02] MEDS: METFORMIN 1,000 MG TABLET 1000 MG PO ×2 (07:37→17:16)
[2022-06-02] MEDS: NON-FORMULARY MEDICATION 1 EACH INH (07:37)
[2022-06-02 07:52] LABS: SARS PCR* Negative SARS-CoV-2 (Negative)
[2022-06-02] MEDS: OXYCODONE 5 MG TABLET PO ×2 (11:11→19:20)
[2022-06-02 17:01] VITALS: TEMP 36.6; O2SAT 94
[2022-06-02] MEDS: SENNOSIDES 1 TAB TABLET PO (19:20)
[2022-06-02] MEDS: MELATONIN 3 MG TABLET PO (19:20)
[2022-06-02 23:58] VITALS: TEMP 36.6; O2SAT 91
[2022-06-03] MEDS: OMEPRAZOLE 20 MG CAPSULE DR PO (06:43)
[2022-06-03] MEDS: NICOTINE 4 MG GUM BUCCAL ×2 (07:10→17:58)
[2022-06-03] MEDS: ALBUTEROL INHALER 2 PUFF IH ×4 (07:19→19:10)
[2022-06-03] MEDS: ASPIRIN 81 MG TABLET EC PO (07:19)
[2022-06-03] MEDS: METOPROLOL SUCCINATE (XL) 50 MG TAB 25 MG PO (07:19)
[2022-06-03] MEDS: VENLAFAXINE ER 75 MG CAPSULE PO (07:19)
[2022-06-03] MEDS: ACETAMINOPHEN 500 MG TABLET 1000 MG PO ×3 (07:19→19:10)
[2022-06-03] MEDS: glipiZIDE 2.5 MG ER TAB 5 MG PO (07:20)
[2022-06-03] MEDS: VENLAFAXINE HCL ER 37.5 MG CAPSULE PO (07:20)
[2022-06-03] MEDS: NON-FORMULARY MEDICATION 1 EACH INH (07:20)
[2022-06-03] MEDS: CARBOXYMETHYLCELLULOSE (REFRESH PLUS) TEARS 1 DROP EYE-BOTH ×4 (07:20→19:10)
[2022-06-03] MEDS: FOLIC ACID 800 MCG PO (07:20)
[2022-06-03] MEDS: OXYCODONE 5 MG TABLET PO ×2 (07:50→19:11)
[2022-06-03] MEDS: MAGNESIUM HYDROXIDE 30 ML ORAL.SUSP PO (07:50)
[2022-06-03] MEDS: METFORMIN 1,000 MG TABLET 1000 MG PO ×2 (07:58→17:02)
[2022-06-03] MEDS: POTASSIUM CHLORIDE 10 MEQ CAPSULE ER PO (07:58)
[2022-06-03] MEDS: FUROSEMIDE 40 MG TABLET 60 MG PO (07:58)
[2022-06-03 11:03] VITALS: TEMP 36.6; O2SAT 94
--- NOTE | 2022-06-03 11:04 | PC.NURSE ---
Pain management: Resident c/o right shoulder pain and stomach discomfort . Request for PRN tab Oxycodone and Milk of Mag and both was given at 0750. Resident refused breakfast and wanted to rest in her room. She got up at 1030 and was feeling much better after she had a L/A of bowel movement. Given medication with light snack.
[2022-06-03 14:59] VITALS: TEMP 36.3; O2SAT 90
[2022-06-03] MEDS: MELATONIN 3 MG TABLET PO (19:10)
[2022-06-03] MEDS: SENNOSIDES 1 TAB TABLET PO (19:10)
[2022-06-03 23:48] VITALS: TEMP 36.6; O2SAT 95
[2022-06-04] MEDS: ALBUTEROL INHALER 2 PUFF IH ×5 (04:47→19:29)
--- NOTE | 2022-06-04 05:11 | PC.NURSE ---
At 04:45 AM, Resident woke up and experienced SOB. O2 sat was 91%. PRN Albuterol administered, On oxygen at 2L via nasal Cannula. Resident express relieved after 15 minutes. Recheck O2 sat went up to 97% at 2L via NC.
[2022-06-04] MEDS: OMEPRAZOLE 20 MG CAPSULE DR PO (07:24)
[2022-06-04] MEDS: ACETAMINOPHEN 500 MG TABLET 1000 MG PO ×3 (07:24→19:29)
[2022-06-04] MEDS: CARBOXYMETHYLCELLULOSE (REFRESH PLUS) TEARS 1 DROP EYE-BOTH ×4 (07:25→19:29)
[2022-06-04] MEDS: ASPIRIN 81 MG TABLET EC PO (07:25)
[2022-06-04] MEDS: NON-FORMULARY MEDICATION 1 EACH INH (07:25)
[2022-06-04] MEDS: VENLAFAXINE ER 75 MG CAPSULE PO (07:25)
[2022-06-04] MEDS: METOPROLOL SUCCINATE (XL) 50 MG TAB 25 MG PO (07:25)
[2022-06-04] MEDS: FOLIC ACID 800 MCG PO (07:25)
[2022-06-04] MEDS: VENLAFAXINE HCL ER 37.5 MG CAPSULE PO (07:25)
[2022-06-04] MEDS: METFORMIN 1,000 MG TABLET 1000 MG PO ×2 (08:15→17:06)
[2022-06-04] MEDS: NICOTINE 4 MG GUM BUCCAL ×2 (08:15→17:06)
[2022-06-04] MEDS: glipiZIDE 2.5 MG ER TAB 5 MG PO (08:15)
[2022-06-04] MEDS: POTASSIUM CHLORIDE 10 MEQ CAPSULE ER PO (08:15)
[2022-06-04] MEDS: FUROSEMIDE 40 MG TABLET 60 MG PO (08:15)
[2022-06-04 10:15] VITALS: TEMP 36.4; O2SAT 94
[2022-06-04 16:56] VITALS: TEMP 36.3; O2SAT 94
[2022-06-04] MEDS: SENNOSIDES 1 TAB TABLET PO (19:29)
[2022-06-04] MEDS: MELATONIN 3 MG TABLET PO (19:29)
[2022-06-04 23:46] VITALS: TEMP 36.6; O2SAT 91
[2022-06-05] MEDS: OMEPRAZOLE 20 MG CAPSULE DR PO (06:18)
[2022-06-05] MEDS: NICOTINE 4 MG GUM BUCCAL ×2 (06:23→17:27)
[2022-06-05 06:26] VITALS: TEMP 36.9; O2SAT 92
[2022-06-05] MEDS: FOLIC ACID 800 MCG PO (07:01)
[2022-06-05] MEDS: METOPROLOL SUCCINATE (XL) 50 MG TAB 25 MG PO (07:01)
[2022-06-05] MEDS: ALBUTEROL INHALER 2 PUFF IH ×4 (07:01→19:08)
[2022-06-05] MEDS: CARBOXYMETHYLCELLULOSE (REFRESH PLUS) TEARS 1 DROP EYE-BOTH ×4 (07:01→19:08)
[2022-06-05] MEDS: ACETAMINOPHEN 500 MG TABLET 1000 MG PO ×3 (07:01→19:08)
[2022-06-05] MEDS: NON-FORMULARY MEDICATION 1 EACH INH (07:01)
[2022-06-05] MEDS: VENLAFAXINE HCL ER 37.5 MG CAPSULE PO (07:01)
[2022-06-05] MEDS: VENLAFAXINE ER 75 MG CAPSULE PO (07:01)
[2022-06-05] MEDS: ASPIRIN 81 MG TABLET EC PO (07:01)
[2022-06-05] MEDS: METFORMIN 1,000 MG TABLET 1000 MG PO ×2 (08:29→17:26)
[2022-06-05] MEDS: FUROSEMIDE 40 MG TABLET 60 MG PO (08:29)
[2022-06-05] MEDS: glipiZIDE 2.5 MG ER TAB 5 MG PO (08:29)
[2022-06-05] MEDS: POTASSIUM CHLORIDE 10 MEQ CAPSULE ER PO (08:30)
--- NOTE | 2022-06-05 11:41 | PC.NURSE ---
COVID OUTBREAK TESTING Resident gave verbal consent for outbreak COVID testing. Resident is currently asymptomatic.? Resident/family will be notified only if resident is positive.
[2022-06-05 14:03] LABS: SARS PCR* Negative SARS-CoV-2 (Negative)
[2022-06-05 15:00] VITALS: TEMP 36.6; O2SAT 95
[2022-06-05] MEDS: SENNOSIDES 1 TAB TABLET PO (19:08)
[2022-06-05] MEDS: OXYCODONE 5 MG TABLET PO (19:09)
--- NOTE | 2022-06-05 19:20 | PC.NURSE ---
Pain: Resident C/O 8/10 pain to lower back. Initial interventions including cold pack, and rest were not effective. PRN Oxycodone 5mg given - resident reported pain alleviation during follow-up.
[2022-06-05] MEDS: MELATONIN 3 MG TABLET PO (19:21)
--- NOTE | 2022-06-05 19:21 | PC.NURSE ---
Insomnia:? Resident requested PRN Melatonin at 1920 due to sleep difficulty.
[2022-06-05 23:00] VITALS: TEMP 36.5; O2SAT 93
--- NOTE | 2022-06-06 04:14 | PC.NURSE ---
WEEKLY CHARTING WEEK 3 : TOILETING AND SKIN Comprehensive and temporary care plan reviewed. No changes made and nothing added to temporary care plan. Resident is independent for toileting using walker,including changing pads, bryanna cares and grooming. She is continent of bowel and bladder with some occasional urgency and incontinence on her way to bathroom. She wears pull ups ; she asks for assistance when she needs it . Vital signs reviewed, no concerns. Continue weekly monitoring. Skin: Skin is checked routinely on bath day, no concerns at this time.
[2022-06-06] MEDS: OMEPRAZOLE 20 MG CAPSULE DR PO (06:38)
[2022-06-06 07:00] VITALS: TEMP 36.8; O2SAT 95
[2022-06-06] MEDS: VENLAFAXINE ER 75 MG CAPSULE PO (07:21)
[2022-06-06] MEDS: glipiZIDE 2.5 MG ER TAB 5 MG PO (07:21)
[2022-06-06] MEDS: VENLAFAXINE HCL ER 37.5 MG CAPSULE PO (07:21)
[2022-06-06] MEDS: POTASSIUM CHLORIDE 10 MEQ CAPSULE ER PO (07:21)
[2022-06-06] MEDS: METOPROLOL SUCCINATE (XL) 50 MG TAB 25 MG PO (07:21)
[2022-06-06] MEDS: METFORMIN 1,000 MG TABLET 1000 MG PO ×2 (07:21→19:46)
[2022-06-06] MEDS: FOLIC ACID 800 MCG PO (07:21)
[2022-06-06] MEDS: NON-FORMULARY MEDICATION 1 EACH INH (07:21)
[2022-06-06] MEDS: ALBUTEROL INHALER 2 PUFF IH ×4 (07:21→19:48)
[2022-06-06] MEDS: CARBOXYMETHYLCELLULOSE (REFRESH PLUS) TEARS 1 DROP EYE-BOTH ×4 (07:21→19:48)
[2022-06-06] MEDS: ACETAMINOPHEN 500 MG TABLET 1000 MG PO ×3 (07:21→19:48)
[2022-06-06] MEDS: ASPIRIN 81 MG TABLET EC PO (07:21)
[2022-06-06] MEDS: FUROSEMIDE 40 MG TABLET 60 MG PO (07:21)
--- NOTE | 2022-06-06 14:17 | PC.NURSE ---
MDS Clarification: ADLs ? discrepancy noted in [facility] ADL documentation. Staff was interviewed and it was determined that resident was independent with personal hygiene. Coded as such.
[2022-06-06 17:00] VITALS: TEMP 36.5; O2SAT 90
[2022-06-06] MEDS: SENNOSIDES 1 TAB TABLET PO (19:48)
[2022-06-06] MEDS: MELATONIN 3 MG TABLET PO (19:48)
[2022-06-06 23:00] VITALS: TEMP 36.8; O2SAT 95
[2022-06-07] MEDS: OMEPRAZOLE 20 MG CAPSULE DR PO (06:42)
[2022-06-07 06:48] VITALS: TEMP 36.8; O2SAT 93
[2022-06-07] MEDS: NICOTINE 4 MG GUM BUCCAL ×2 (06:48→16:29)
[2022-06-07] MEDS: ASPIRIN 81 MG TABLET EC PO (07:03)
[2022-06-07] MEDS: ALBUTEROL INHALER 2 PUFF IH ×4 (07:03→19:52)
[2022-06-07] MEDS: METOPROLOL SUCCINATE (XL) 50 MG TAB 25 MG PO (07:03)
[2022-06-07] MEDS: VENLAFAXINE ER 75 MG CAPSULE PO (07:03)
[2022-06-07] MEDS: FOLIC ACID 800 MCG PO (07:03)
[2022-06-07] MEDS: ACETAMINOPHEN 500 MG TABLET 1000 MG PO ×3 (07:03→19:52)
[2022-06-07] MEDS: CARBOXYMETHYLCELLULOSE (REFRESH PLUS) TEARS 1 DROP EYE-BOTH ×4 (07:04→19:52)
[2022-06-07] MEDS: NON-FORMULARY MEDICATION 1 EACH INH (07:04)
[2022-06-07] MEDS: VENLAFAXINE HCL ER 37.5 MG CAPSULE PO (07:04)
[2022-06-07] MEDS: METFORMIN 1,000 MG TABLET 1000 MG PO ×2 (08:33→17:11)
[2022-06-07] MEDS: FUROSEMIDE 40 MG TABLET 60 MG PO (08:33)
[2022-06-07] MEDS: glipiZIDE 2.5 MG ER TAB 5 MG PO (08:33)
[2022-06-07] MEDS: POTASSIUM CHLORIDE 10 MEQ CAPSULE ER PO (08:34)
--- NOTE | 2022-06-07 11:40 | PC.NURSE ---
Insomnia: Resident requested PRN Melatonin at 1920 due to sleep difficulty.
[2022-06-07] MEDS: SENNOSIDES 1 TAB TABLET PO (19:53)
[2022-06-07] MEDS: MELATONIN 3 MG TABLET PO (19:54)
--- NOTE | 2022-06-07 21:06 | PC.NURSE ---
Insomnia: Resident requested PRN Melatonin @ 20:00 for difficulty sleeping
[2022-06-08] MEDS: ASPIRIN 81 MG TABLET EC PO (07:05)
[2022-06-08] MEDS: ACETAMINOPHEN 500 MG TABLET 1000 MG PO ×3 (07:05→19:33)
[2022-06-08] MEDS: METOPROLOL SUCCINATE (XL) 50 MG TAB 25 MG PO (07:05)
[2022-06-08] MEDS: VENLAFAXINE ER 75 MG CAPSULE PO (07:05)
[2022-06-08] MEDS: ALBUTEROL INHALER 2 PUFF IH ×4 (07:05→19:33)
[2022-06-08] MEDS: OMEPRAZOLE 20 MG CAPSULE DR PO (07:05)
[2022-06-08] MEDS: NON-FORMULARY MEDICATION 1 EACH INH (07:06)
[2022-06-08] MEDS: CARBOXYMETHYLCELLULOSE (REFRESH PLUS) TEARS 1 DROP EYE-BOTH ×4 (07:06→19:33)
[2022-06-08] MEDS: FOLIC ACID 800 MCG PO (07:06)
[2022-06-08] MEDS: VENLAFAXINE HCL ER 37.5 MG CAPSULE PO (07:06)
[2022-06-08] MEDS: FUROSEMIDE 40 MG TABLET 60 MG PO (08:17)
[2022-06-08] MEDS: METFORMIN 1,000 MG TABLET 1000 MG PO ×2 (08:17→17:08)
[2022-06-08] MEDS: POTASSIUM CHLORIDE 10 MEQ CAPSULE ER PO (08:17)
[2022-06-08] MEDS: glipiZIDE 2.5 MG ER TAB 5 MG PO (08:17)
[2022-06-08 10:19] VITALS: BMI 21.7
[2022-06-08] MEDS: NON-FORMULARY MEDICATION 1 EACH SUBCUT (11:16)
[2022-06-08 14:47] VITALS: BP 120/70; PULSE 74; RESP 20; TEMP 36.4; O2SAT 95
[2022-06-08] MEDS: SENNOSIDES 1 TAB TABLET PO (19:33)
[2022-06-09] MEDS: NICOTINE 4 MG GUM BUCCAL (07:00)
[2022-06-09] MEDS: ACETAMINOPHEN 500 MG TABLET 1000 MG PO ×3 (07:03→19:27)
[2022-06-09] MEDS: ALBUTEROL INHALER 2 PUFF IH ×4 (07:03→19:27)
[2022-06-09] MEDS: OMEPRAZOLE 20 MG CAPSULE DR PO (07:03)
[2022-06-09] MEDS: VENLAFAXINE HCL ER 37.5 MG CAPSULE PO (07:04)
[2022-06-09] MEDS: METFORMIN 1,000 MG TABLET 1000 MG PO ×2 (07:04→17:25)
[2022-06-09] MEDS: FUROSEMIDE 40 MG TABLET 60 MG PO (07:04)
[2022-06-09] MEDS: METOPROLOL SUCCINATE (XL) 50 MG TAB 25 MG PO (07:04)
[2022-06-09] MEDS: CARBOXYMETHYLCELLULOSE (REFRESH PLUS) TEARS 1 DROP EYE-BOTH ×4 (07:04→19:27)
[2022-06-09] MEDS: glipiZIDE 2.5 MG ER TAB 5 MG PO (07:04)
[2022-06-09] MEDS: ASPIRIN 81 MG TABLET EC PO (07:04)
[2022-06-09] MEDS: VENLAFAXINE ER 75 MG CAPSULE PO (07:04)
[2022-06-09] MEDS: NON-FORMULARY MEDICATION 1 EACH INH (07:04)
[2022-06-09] MEDS: POTASSIUM CHLORIDE 10 MEQ CAPSULE ER PO (07:04)
--- NOTE | 2022-06-09 12:36 | PC.NURSE ---
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
--- NOTE | 2022-06-09 13:58 | PC.NURSE ---
Appt for mammogram is on August 21 at 1440
[2022-06-09] MEDS: SENNOSIDES 1 TAB TABLET PO (19:27)
[2022-06-10] MEDS: glipiZIDE 2.5 MG ER TAB 5 MG PO (07:05)
[2022-06-10] MEDS: METOPROLOL SUCCINATE (XL) 50 MG TAB 25 MG PO (07:05)
[2022-06-10] MEDS: ACETAMINOPHEN 500 MG TABLET 1000 MG PO ×3 (07:05→19:27)
[2022-06-10] MEDS: FUROSEMIDE 40 MG TABLET 60 MG PO (07:05)
[2022-06-10] MEDS: ALBUTEROL INHALER 2 PUFF IH ×4 (07:05→19:27)
[2022-06-10] MEDS: VENLAFAXINE ER 75 MG CAPSULE PO (07:05)
[2022-06-10] MEDS: FOLIC ACID 800 MCG PO (07:05)
[2022-06-10] MEDS: ASPIRIN 81 MG TABLET EC PO (07:05)
[2022-06-10] MEDS: OMEPRAZOLE 20 MG CAPSULE DR PO (07:05)
[2022-06-10] MEDS: METFORMIN 1,000 MG TABLET 1000 MG PO ×2 (07:05→18:50)
[2022-06-10] MEDS: POTASSIUM CHLORIDE 10 MEQ CAPSULE ER PO (07:06)
[2022-06-10] MEDS: NON-FORMULARY MEDICATION 1 EACH INH (07:06)
[2022-06-10] MEDS: VENLAFAXINE HCL ER 37.5 MG CAPSULE PO (07:06)
[2022-06-10] MEDS: NICOTINE 4 MG GUM BUCCAL (07:06)
[2022-06-10] MEDS: CARBOXYMETHYLCELLULOSE (REFRESH PLUS) TEARS 1 DROP EYE-BOTH ×4 (07:06→19:27)
[2022-06-10] MEDS: SENNOSIDES 1 TAB TABLET PO (19:27)
[2022-06-11] MEDS: OMEPRAZOLE 20 MG CAPSULE DR PO (06:29)
[2022-06-11] MEDS: METFORMIN 1,000 MG TABLET 1000 MG PO ×2 (07:24→17:26)
[2022-06-11] MEDS: ASPIRIN 81 MG TABLET EC PO (07:24)
[2022-06-11] MEDS: FOLIC ACID 800 MCG PO (07:24)
[2022-06-11] MEDS: VENLAFAXINE ER 75 MG CAPSULE PO (07:24)
[2022-06-11] MEDS: FUROSEMIDE 40 MG TABLET 60 MG PO (07:24)
[2022-06-11] MEDS: ALBUTEROL INHALER 2 PUFF IH ×4 (07:24→19:38)
[2022-06-11] MEDS: ACETAMINOPHEN 500 MG TABLET 1000 MG PO ×3 (07:24→19:38)
[2022-06-11] MEDS: METOPROLOL SUCCINATE (XL) 50 MG TAB 25 MG PO (07:24)
[2022-06-11] MEDS: glipiZIDE 2.5 MG ER TAB 5 MG PO (07:24)
[2022-06-11] MEDS: NON-FORMULARY MEDICATION 1 EACH INH (07:25)
[2022-06-11] MEDS: CARBOXYMETHYLCELLULOSE (REFRESH PLUS) TEARS 1 DROP EYE-BOTH ×4 (07:25→19:38)
[2022-06-11] MEDS: VENLAFAXINE HCL ER 37.5 MG CAPSULE PO (07:25)
[2022-06-11] MEDS: POTASSIUM CHLORIDE 10 MEQ CAPSULE ER PO (08:04)
[2022-06-11] MEDS: SENNOSIDES 1 TAB TABLET PO (19:38)
[2022-06-11] MEDS: MELATONIN 3 MG TABLET PO (19:39)
[2022-06-12] MEDS: OMEPRAZOLE 20 MG CAPSULE DR PO (06:22)
[2022-06-12] MEDS: NICOTINE 4 MG GUM BUCCAL ×2 (06:29→17:03)
[2022-06-12] MEDS: CARBOXYMETHYLCELLULOSE (REFRESH PLUS) TEARS 1 DROP EYE-BOTH ×4 (07:02→20:08)
[2022-06-12] MEDS: METOPROLOL SUCCINATE (XL) 50 MG TAB 25 MG PO (07:02)
[2022-06-12] MEDS: ACETAMINOPHEN 500 MG TABLET 1000 MG PO ×3 (07:02→20:08)
[2022-06-12] MEDS: VENLAFAXINE ER 75 MG CAPSULE PO (07:02)
[2022-06-12] MEDS: ALBUTEROL INHALER 2 PUFF IH ×4 (07:02→20:08)
[2022-06-12] MEDS: ASPIRIN 81 MG TABLET EC PO (07:02)
[2022-06-12] MEDS: FOLIC ACID 800 MCG PO (07:02)
[2022-06-12] MEDS: NON-FORMULARY MEDICATION 1 EACH INH (07:02)
[2022-06-12] MEDS: VENLAFAXINE HCL ER 37.5 MG CAPSULE PO (07:03)
[2022-06-12] MEDS: FUROSEMIDE 40 MG TABLET 60 MG PO (08:26)
[2022-06-12] MEDS: glipiZIDE 2.5 MG ER TAB 5 MG PO (08:26)
[2022-06-12] MEDS: METFORMIN 1,000 MG TABLET 1000 MG PO ×2 (08:26→17:03)
[2022-06-12] MEDS: POTASSIUM CHLORIDE 10 MEQ CAPSULE ER PO (08:27)
[2022-06-12] MEDS: MELATONIN 3 MG TABLET PO (20:08)
[2022-06-12] MEDS: SENNOSIDES 1 TAB TABLET PO (20:08)
--- NOTE | 2022-06-12 22:06 | PC.NURSE ---
Insomnia: Anticipating sleeping difficulty, resident requested PRN Melatonin at 2057.
[2022-06-13] MEDS: OMEPRAZOLE 20 MG CAPSULE DR PO (06:21)
[2022-06-13] MEDS: NICOTINE 4 MG GUM BUCCAL (06:27)
[2022-06-13] MEDS: VENLAFAXINE HCL ER 37.5 MG CAPSULE PO (07:35)
[2022-06-13] MEDS: ACETAMINOPHEN 500 MG TABLET 1000 MG PO ×3 (07:35→19:39)
[2022-06-13] MEDS: CARBOXYMETHYLCELLULOSE (REFRESH PLUS) TEARS 1 DROP EYE-BOTH ×4 (07:35→19:39)
[2022-06-13] MEDS: ALBUTEROL INHALER 2 PUFF IH ×4 (07:35→19:39)
[2022-06-13] MEDS: FOLIC ACID 800 MCG PO (07:35)
[2022-06-13] MEDS: ASPIRIN 81 MG TABLET EC PO (07:35)
[2022-06-13] MEDS: VENLAFAXINE ER 75 MG CAPSULE PO (07:35)
[2022-06-13] MEDS: NON-FORMULARY MEDICATION 1 EACH INH (07:35)
[2022-06-13] MEDS: METOPROLOL SUCCINATE (XL) 50 MG TAB 25 MG PO (07:35)
[2022-06-13] MEDS: glipiZIDE 2.5 MG ER TAB 5 MG PO (08:08)
[2022-06-13] MEDS: POTASSIUM CHLORIDE 10 MEQ CAPSULE ER PO (08:09)
[2022-06-13] MEDS: METFORMIN 1,000 MG TABLET 1000 MG PO ×2 (08:09→17:23)
[2022-06-13] MEDS: FUROSEMIDE 40 MG TABLET 60 MG PO (08:09)
[2022-06-13] MEDS: LOPERAMIDE HCL 2 MG CAPSULE PO (09:56)
--- NOTE | 2022-06-13 11:51 | PC.SPIRITC ---
I provided visit for connection and support.
--- NOTE | 2022-06-13 13:00 | PC.NURSE ---
CARE CONFERENCE: Resident, nursing, dietary, activities, and social service team present. Activity department - in and out of room activites are going well. No concerns or changes at this time. Dietary - Wt stable. Has increased wt over the past three months. Plush Brusher happy with this increase. Resident continues to eat more snacks throughout the day that she enjoys. Resident requests to go back to a regular diet - air hole driller will request in the CENTER PUNCH OPERATOR book. Reviewed ADLS, transfers and mobility - no changes. Mood is stable, no concerns. GDR of antipsychotropic medication has been done in past 3 months. No concerns/adverse effects at this time. Discussed other medications/changes in past 90 days and resident has no questions/concerns at this time. Medication list given to resident. Care plan reviewed and updated. POLST reviewed. Is DNR/DNI. Uses no restraints. Does use two 1/4 top side rails up to assist with positioning per request.?Vulnerability- is at risk for being harmed due to weakness and fragility. Resident noted she does smoke when out with family but tries to keep it minimal. She [place] if [place] - per SW she has plenty of days left to do this. Resident is pleased. Nursing recommends that if she goes out for this period of time that she should be sure to take her oxygen with her--will see what options are available vs. portable tank as she could run out if it is used consistently. Does not want to see a dentist to review fit of dentures at this time. Does not want to see a provider for hearing or vision at this time. Resident does wear 02 at night and as needed during the day at times. Resident states her mood is stable and at times she feels more tired than other times. Resident wonders if she will have a follow up with her oncologist because Dr. Rose talked to her about it during her recert visit--will inform VENETIAN BLIND MACHINE OPERATOR for follow up. She also notes that PT is going well. No plans for discharge. No questions/concerns at this time. Resident is happy with her cares.
--- NOTE | 2022-06-13 15:32 | NUTR.NU ---
During resident's care conference today, resident requested diet order change from Low Concentrated Sweets to Regular. Resident had multiple packages of sweets and vanilla/chocolate wafer cookies in her room, and she snacks often throughout the day. RDN wrote diet order request change in INTERNATIONAL CONTROLLER book. RDN will continue to monitor weight monthly and follow-up prn.
--- NOTE | 2022-06-13 15:38 | PC.SOCIAL ---
Resident's care conference was held today with resident and all members of the team. Resident's mood remains stable with no s/s of depression noted. Resident is very social with staff and other residents in the facility. Resident had no concerns other than wondering when her next mammogram was as the physician talked to her about this at her last visit. Resident plans to go out for a week in June near [place], [place] with her son and stay at their friends home.
[2022-06-13] MEDS: SENNOSIDES 1 TAB TABLET PO (19:39)
[2022-06-13] MEDS: MELATONIN 3 MG TABLET PO (19:39)
--- NOTE | 2022-06-14 03:29 | PC.NURSE ---
WEEKLY CHARTING - WEEK 4: Vital signs reviewed - no concerns. Temporary and comprehensive care plan reviewed - no change. No behaviors documented in the last month. Receives venlafaxine 112.5mg daily with no noted adverse effects. Melatonin 3mg at HS PRN has been utilized x12 in the last month. Hearing mildly impaired. Adjust volume/tone as needed. Visual impairment is corrected with glasses. Cognition intact. May self-administer medications after nursing set-up. Health condition currently stable.
[2022-06-14] MEDS: OMEPRAZOLE 20 MG CAPSULE DR PO (06:21)
[2022-06-14] MEDS: NICOTINE 4 MG GUM BUCCAL ×2 (06:46→17:10)
[2022-06-14] MEDS: FOLIC ACID 800 MCG PO (07:25)
[2022-06-14] MEDS: ASPIRIN 81 MG TABLET EC PO (07:26)
[2022-06-14] MEDS: ACETAMINOPHEN 500 MG TABLET 1000 MG PO ×3 (07:26→19:20)
[2022-06-14] MEDS: ALBUTEROL INHALER 2 PUFF IH ×4 (07:26→19:20)
[2022-06-14] MEDS: VENLAFAXINE ER 75 MG CAPSULE PO (07:27)
[2022-06-14] MEDS: METFORMIN 1,000 MG TABLET 1000 MG PO ×2 (07:27→17:10)
[2022-06-14] MEDS: FUROSEMIDE 40 MG TABLET 60 MG PO (07:27)
[2022-06-14] MEDS: METOPROLOL SUCCINATE (XL) 50 MG TAB 25 MG PO (07:27)
[2022-06-14] MEDS: glipiZIDE 2.5 MG ER TAB 5 MG PO (07:27)
[2022-06-14] MEDS: VENLAFAXINE HCL ER 37.5 MG CAPSULE PO (07:28)
[2022-06-14] MEDS: NON-FORMULARY MEDICATION 1 EACH INH (07:28)
[2022-06-14] MEDS: POTASSIUM CHLORIDE 10 MEQ CAPSULE ER PO (07:28)
[2022-06-14] MEDS: CARBOXYMETHYLCELLULOSE (REFRESH PLUS) TEARS 1 DROP EYE-BOTH ×4 (07:28→19:20)
--- NOTE | 2022-06-14 07:40 | PC.NURSE ---
Weekly Charting-Week 4: Comprehensive and temporary care plan reviewed. No changes made. Nothing added to temporary care plan. No changes noted in communication, hearing, vision, or orientation. She does communicate needs. Has mild hearing difficulty in some environment. No device used. Speak and adjust tone of voice. Vision impairment corrected by glasses. Cognition intact. Chronic health condition stable. Vital signs reviewed,no concerns. Is able to self administer medications. Nurse may leave medications? and check they are taken. Mood/Behavior: No issues the last month. Continues on Effexor 112.5mg daily with no adverse effects noted. Melatonin 3mg @HS PRN started on 05/16/22 and has used not on a daily basis.
[2022-06-14] MEDS: OXYCODONE 5 MG TABLET PO (10:05)
[2022-06-14] MEDS: MELATONIN 3 MG TABLET PO (19:20)
[2022-06-14] MEDS: SENNOSIDES 1 TAB TABLET PO (19:20)
[2022-06-15] MEDS: OMEPRAZOLE 20 MG CAPSULE DR PO (06:27)
[2022-06-15 07:00] VITALS: BP 114/55; PULSE 100; RESP 20; TEMP 36.6; O2SAT 93; BMI 21.4
[2022-06-15] MEDS: NICOTINE 4 MG GUM BUCCAL (07:00)
[2022-06-15] MEDS: ACETAMINOPHEN 500 MG TABLET 1000 MG PO ×3 (07:24→19:13)
[2022-06-15] MEDS: ALBUTEROL INHALER 2 PUFF IH ×4 (07:24→19:13)
[2022-06-15] MEDS: glipiZIDE 2.5 MG ER TAB 5 MG PO (07:24)
[2022-06-15] MEDS: FUROSEMIDE 40 MG TABLET 60 MG PO (07:24)
[2022-06-15] MEDS: VENLAFAXINE ER 75 MG CAPSULE PO (07:24)
[2022-06-15] MEDS: ASPIRIN 81 MG TABLET EC PO (07:24)
[2022-06-15] MEDS: METOPROLOL SUCCINATE (XL) 50 MG TAB 25 MG PO (07:25)
[2022-06-15] MEDS: CARBOXYMETHYLCELLULOSE (REFRESH PLUS) TEARS 1 DROP EYE-BOTH ×4 (07:25→19:13)
[2022-06-15] MEDS: POTASSIUM CHLORIDE 10 MEQ CAPSULE ER PO (07:25)
[2022-06-15] MEDS: VENLAFAXINE HCL ER 37.5 MG CAPSULE PO (07:25)
[2022-06-15] MEDS: NON-FORMULARY MEDICATION 1 EACH INH (07:25)
[2022-06-15] MEDS: FOLIC ACID 800 MCG PO (07:25)
[2022-06-15] MEDS: METFORMIN 1,000 MG TABLET 1000 MG PO ×2 (07:25→19:02)
--- NOTE | 2022-06-15 16:43 | PC.SOCIAL ---
Met with resident in resident's room to provide mail. Resident received a $500 visa gift card from [facility]. Discussed with resident ways she could spend the gift card. Resident will think about it and this worker will follow up. Resident has another gift card for $392.38, so total resident has $892.38. Cards are both locked up in social work office. Social work will follow up as necessary.
[2022-06-15] MEDS: SENNOSIDES 1 TAB TABLET PO (19:13)
[2022-06-15] MEDS: MELATONIN 3 MG TABLET PO (19:23)
[2022-06-15] MEDS: OXYCODONE 5 MG TABLET PO (19:23)
[2022-06-16] MEDS: OMEPRAZOLE 20 MG CAPSULE DR PO (06:39)
[2022-06-16] MEDS: NICOTINE 4 MG GUM BUCCAL ×2 (07:10→17:08)
[2022-06-16] MEDS: ALBUTEROL INHALER 2 PUFF IH ×4 (07:13→19:30)
[2022-06-16] MEDS: METOPROLOL SUCCINATE (XL) 50 MG TAB 25 MG PO (07:13)
[2022-06-16] MEDS: VENLAFAXINE HCL ER 37.5 MG CAPSULE PO (07:13)
[2022-06-16] MEDS: VENLAFAXINE ER 75 MG CAPSULE PO (07:13)
[2022-06-16] MEDS: NON-FORMULARY MEDICATION 1 EACH INH (07:13)
[2022-06-16] MEDS: CARBOXYMETHYLCELLULOSE (REFRESH PLUS) TEARS 1 DROP EYE-BOTH ×4 (07:13→19:30)
[2022-06-16] MEDS: ASPIRIN 81 MG TABLET EC PO (07:13)
[2022-06-16] MEDS: ACETAMINOPHEN 500 MG TABLET 1000 MG PO ×3 (07:13→19:30)
[2022-06-16] MEDS: FUROSEMIDE 40 MG TABLET 60 MG PO (08:05)
[2022-06-16] MEDS: POTASSIUM CHLORIDE 10 MEQ CAPSULE ER PO (08:05)
[2022-06-16] MEDS: glipiZIDE 2.5 MG ER TAB 5 MG PO (08:05)
[2022-06-16] MEDS: METFORMIN 1,000 MG TABLET 1000 MG PO ×2 (08:05→17:07)
--- NOTE | 2022-06-16 10:49 | PC.NURSE ---
TEO : Resident left facility at 1045 with family and will be back at 1700 hours. Noon medication ( Tylenol 1000mg) was given with resident
[2022-06-16] MEDS: MELATONIN 3 MG TABLET PO (19:30)
[2022-06-16] MEDS: OXYCODONE 5 MG TABLET PO (19:30)
[2022-06-16] MEDS: SENNOSIDES 1 TAB TABLET PO (19:30)
[2022-06-17] MEDS: ALBUTEROL INHALER 2 PUFF IH ×4 (07:06→19:36)
[2022-06-17] MEDS: METOPROLOL SUCCINATE (XL) 50 MG TAB 25 MG PO (07:06)
[2022-06-17] MEDS: VENLAFAXINE ER 75 MG CAPSULE PO (07:06)
[2022-06-17] MEDS: ASPIRIN 81 MG TABLET EC PO (07:06)
[2022-06-17] MEDS: OMEPRAZOLE 20 MG CAPSULE DR PO (07:06)
[2022-06-17] MEDS: ACETAMINOPHEN 500 MG TABLET 1000 MG PO ×3 (07:06→19:36)
[2022-06-17] MEDS: VENLAFAXINE HCL ER 37.5 MG CAPSULE PO (07:07)
[2022-06-17] MEDS: NON-FORMULARY MEDICATION 1 EACH INH (07:07)
[2022-06-17] MEDS: FOLIC ACID 800 MCG PO (07:07)
[2022-06-17] MEDS: CARBOXYMETHYLCELLULOSE (REFRESH PLUS) TEARS 1 DROP EYE-BOTH ×4 (07:07→19:36)
[2022-06-17] MEDS: NICOTINE 4 MG GUM BUCCAL ×2 (07:10→17:28)
[2022-06-17] MEDS: POTASSIUM CHLORIDE 10 MEQ CAPSULE ER PO (08:10)
[2022-06-17] MEDS: FUROSEMIDE 40 MG TABLET 60 MG PO (08:10)
[2022-06-17] MEDS: glipiZIDE 2.5 MG ER TAB 5 MG PO (08:10)
[2022-06-17] MEDS: METFORMIN 1,000 MG TABLET 1000 MG PO ×2 (08:10→17:28)
--- NOTE | 2022-06-17 10:34 | PC.NURSE ---
Resident had a hard time walking from her bed to the recliner. She used the call light for help. She was very breathless and informed that she is feeling very weak, Vitals as follows: T 97.2, P96 B/P 112/54, R 24 O2 sat was 88%(RA). 2 Liter O2 was started via nasal cannula at 0715. Resident had her breakfast in her room. O2 sat was checked again at 1030 and it was 93% ( RA) and O2 was discontinued. Resident informed that she is feeling much better.
[2022-06-17] MEDS: SENNOSIDES 1 TAB TABLET PO (19:36)
[2022-06-17] MEDS: OXYCODONE 5 MG TABLET PO (19:39)
--- NOTE | 2022-06-18 05:48 | PC.NURSE ---
Res has had oxygen on the whole night at 2L via NC with an O2sat of 98%.
[2022-06-18] MEDS: CARBOXYMETHYLCELLULOSE (REFRESH PLUS) TEARS 1 DROP EYE-BOTH ×4 (07:25→19:33)
[2022-06-18] MEDS: ASPIRIN 81 MG TABLET EC PO (07:25)
[2022-06-18] MEDS: METOPROLOL SUCCINATE (XL) 50 MG TAB 25 MG PO (07:25)
[2022-06-18] MEDS: NON-FORMULARY MEDICATION 1 EACH INH (07:25)
[2022-06-18] MEDS: OMEPRAZOLE 20 MG CAPSULE DR PO (07:25)
[2022-06-18] MEDS: ACETAMINOPHEN 500 MG TABLET 1000 MG PO ×3 (07:25→19:33)
[2022-06-18] MEDS: VENLAFAXINE ER 75 MG CAPSULE PO (07:25)
[2022-06-18] MEDS: VENLAFAXINE HCL ER 37.5 MG CAPSULE PO (07:25)
[2022-06-18] MEDS: ALBUTEROL INHALER 2 PUFF IH ×4 (07:25→19:33)
[2022-06-18] MEDS: FOLIC ACID 800 MCG PO (07:25)
[2022-06-18] MEDS: FUROSEMIDE 40 MG TABLET 60 MG PO (08:03)
[2022-06-18] MEDS: POTASSIUM CHLORIDE 10 MEQ CAPSULE ER PO (08:03)
[2022-06-18] MEDS: glipiZIDE 2.5 MG ER TAB 5 MG PO (08:03)
[2022-06-18] MEDS: METFORMIN 1,000 MG TABLET 1000 MG PO ×2 (08:03→17:04)
[2022-06-18] MEDS: NICOTINE 4 MG GUM BUCCAL (17:05)
[2022-06-18] MEDS: SENNOSIDES 1 TAB TABLET PO (19:33)
[2022-06-18] MEDS: OXYCODONE 5 MG TABLET PO (19:34)
[2022-06-19] MEDS: ACETAMINOPHEN 500 MG TABLET 1000 MG PO ×3 (07:14→19:05)
[2022-06-19] MEDS: ALBUTEROL INHALER 2 PUFF IH ×4 (07:14→19:05)
[2022-06-19] MEDS: OMEPRAZOLE 20 MG CAPSULE DR PO (07:14)
[2022-06-19] MEDS: METOPROLOL SUCCINATE (XL) 50 MG TAB 25 MG PO (07:15)
[2022-06-19] MEDS: VENLAFAXINE ER 75 MG CAPSULE PO (07:15)
[2022-06-19] MEDS: CARBOXYMETHYLCELLULOSE (REFRESH PLUS) TEARS 1 DROP EYE-BOTH ×4 (07:15→19:05)
[2022-06-19] MEDS: FOLIC ACID 800 MCG PO (07:15)
[2022-06-19] MEDS: ASPIRIN 81 MG TABLET EC PO (07:15)
[2022-06-19] MEDS: NON-FORMULARY MEDICATION 1 EACH INH (07:15)
[2022-06-19] MEDS: VENLAFAXINE HCL ER 37.5 MG CAPSULE PO (07:16)
[2022-06-19] MEDS: NICOTINE 4 MG GUM BUCCAL ×2 (07:20→18:22)
[2022-06-19] MEDS: glipiZIDE 2.5 MG ER TAB 5 MG PO (08:10)
[2022-06-19] MEDS: POTASSIUM CHLORIDE 10 MEQ CAPSULE ER PO (08:11)
[2022-06-19] MEDS: FUROSEMIDE 40 MG TABLET 60 MG PO (08:11)
[2022-06-19] MEDS: METFORMIN 1,000 MG TABLET 1000 MG PO ×2 (08:11→17:36)
[2022-06-19] MEDS: OXYCODONE 5 MG TABLET PO (18:20)
[2022-06-19] MEDS: SENNOSIDES 1 TAB TABLET PO (19:05)
[2022-06-20] MEDS: OMEPRAZOLE 20 MG CAPSULE DR PO (06:37)
[2022-06-20] MEDS: ACETAMINOPHEN 500 MG TABLET 1000 MG PO ×3 (07:14→19:29)
[2022-06-20] MEDS: VENLAFAXINE ER 75 MG CAPSULE PO (07:14)
[2022-06-20] MEDS: ALBUTEROL INHALER 2 PUFF IH ×4 (07:14→19:29)
[2022-06-20] MEDS: FUROSEMIDE 40 MG TABLET 60 MG PO (07:14)
[2022-06-20] MEDS: FOLIC ACID 800 MCG PO (07:14)
[2022-06-20] MEDS: METOPROLOL SUCCINATE (XL) 50 MG TAB 25 MG PO (07:14)
[2022-06-20] MEDS: glipiZIDE 2.5 MG ER TAB 5 MG PO (07:14)
[2022-06-20] MEDS: NON-FORMULARY MEDICATION 1 EACH INH (07:14)
[2022-06-20] MEDS: ASPIRIN 81 MG TABLET EC PO (07:14)
[2022-06-20] MEDS: METFORMIN 1,000 MG TABLET 1000 MG PO ×2 (07:14→17:07)
[2022-06-20] MEDS: NICOTINE 4 MG GUM BUCCAL ×2 (07:15→17:24)
[2022-06-20] MEDS: POTASSIUM CHLORIDE 10 MEQ CAPSULE ER PO (07:25)
[2022-06-20] MEDS: VENLAFAXINE HCL ER 37.5 MG CAPSULE PO (07:25)
[2022-06-20] MEDS: CARBOXYMETHYLCELLULOSE (REFRESH PLUS) TEARS 1 DROP EYE-BOTH ×4 (07:25→19:29)
--- NOTE | 2022-06-20 11:00 | PC.NURSE ---
Diet: Changed to regular per resident request by Anselmo DWYER.
[2022-06-20] MEDS: OXYCODONE 5 MG TABLET PO (18:46)
[2022-06-20] MEDS: SENNOSIDES 1 TAB TABLET PO (19:30)
--- NOTE | 2022-06-21 02:56 | PC.NURSE ---
WEEKLY CHARTING ? WEEK 1: Vital signs reviewed ? no concerns. Temporary and comprehensive care plan reviewed ? no change. HX of chronic right shoulder pain. Receives acetaminophen 1000mg TID and oxycodone 5mg Q6 hours PRN for pain management which is noted to be effective. PRN oxycodone utilized x14 in the last month. Independent with dressing, grooming, and oral care. Staff provide assist of 1 PRN. Assist of 1 with weekly bath. Eats independently. Reports difficulty chewing with some foods. Receives regular diet with regular textures and thin liquids.
[2022-06-21] MEDS: OMEPRAZOLE 20 MG CAPSULE DR PO (06:26)
[2022-06-21] MEDS: NICOTINE 4 MG GUM BUCCAL ×2 (06:36→17:13)
--- NOTE | 2022-06-21 06:54 | PC.NURSE ---
Weekly Charting, Week 1-ADL's: Comprehensive and temporary care plan reviewed. No changes made & nothing added to temporary care plan. Resident is independent with dressing, grooming, oral cares and feeding. Will ask for assist as needed. Needs supervision of one with bathing. Is on regular diet per her request. No problems with chewing/swallowing reported. Receives nutritional supplements which she provides her own. Occasionally will ask.Vital signs reviewed, no concerns. Pain: Has chronic (R) shoulder pain controlled with Tylenol 1000mg TID, & Oxycodone 5mg Q6H PRN which she has used occasionally last month with relief. Is able to verbalize need for pain.
[2022-06-21] MEDS: CARBOXYMETHYLCELLULOSE (REFRESH PLUS) TEARS 1 DROP EYE-BOTH ×4 (07:02→19:22)
[2022-06-21] MEDS: ASPIRIN 81 MG TABLET EC PO (07:02)
[2022-06-21] MEDS: METOPROLOL SUCCINATE (XL) 50 MG TAB 25 MG PO (07:02)
[2022-06-21] MEDS: VENLAFAXINE ER 75 MG CAPSULE PO (07:02)
[2022-06-21] MEDS: NON-FORMULARY MEDICATION 1 EACH INH (07:02)
[2022-06-21] MEDS: VENLAFAXINE HCL ER 37.5 MG CAPSULE PO (07:02)
[2022-06-21] MEDS: FOLIC ACID 800 MCG PO (07:02)
[2022-06-21] MEDS: ALBUTEROL INHALER 2 PUFF IH ×4 (07:02→19:22)
[2022-06-21] MEDS: ACETAMINOPHEN 500 MG TABLET 1000 MG PO ×3 (07:02→19:22)
[2022-06-21] MEDS: FUROSEMIDE 40 MG TABLET 60 MG PO (08:22)
[2022-06-21] MEDS: METFORMIN 1,000 MG TABLET 1000 MG PO ×2 (08:22→17:19)
[2022-06-21] MEDS: POTASSIUM CHLORIDE 10 MEQ CAPSULE ER PO (08:22)
[2022-06-21] MEDS: glipiZIDE 2.5 MG ER TAB 5 MG PO (08:22)
[2022-06-21] MEDS: OXYCODONE 5 MG TABLET PO (18:45)
[2022-06-21] MEDS: SENNOSIDES 1 TAB TABLET PO (19:23)
[2022-06-22] MEDS: ALBUTEROL INHALER 2 PUFF IH ×4 (07:45→19:16)
[2022-06-22] MEDS: ACETAMINOPHEN 500 MG TABLET 1000 MG PO ×3 (07:45→19:16)
[2022-06-22] MEDS: ASPIRIN 81 MG TABLET EC PO (07:45)
[2022-06-22] MEDS: OMEPRAZOLE 20 MG CAPSULE DR PO (07:45)
[2022-06-22] MEDS: VENLAFAXINE ER 75 MG CAPSULE PO (07:46)
[2022-06-22] MEDS: FOLIC ACID 800 MCG PO (07:50)
[2022-06-22] MEDS: METOPROLOL SUCCINATE (XL) 50 MG TAB 25 MG PO (07:50)
[2022-06-22] MEDS: CARBOXYMETHYLCELLULOSE (REFRESH PLUS) TEARS 1 DROP EYE-BOTH ×4 (07:51→19:16)
[2022-06-22] MEDS: VENLAFAXINE HCL ER 37.5 MG CAPSULE PO (07:51)
[2022-06-22] MEDS: NON-FORMULARY MEDICATION 1 EACH INH (07:51)
[2022-06-22] MEDS: FUROSEMIDE 40 MG TABLET 60 MG PO (08:06)
[2022-06-22] MEDS: POTASSIUM CHLORIDE 10 MEQ CAPSULE ER PO (08:06)
[2022-06-22] MEDS: glipiZIDE 2.5 MG ER TAB 5 MG PO (08:06)
[2022-06-22] MEDS: METFORMIN 1,000 MG TABLET 1000 MG PO ×2 (08:06→19:09)
[2022-06-22 09:29] VITALS: BP 100/62; PULSE 100; RESP 20; TEMP 36.4; O2SAT 92; BMI 21.2
[2022-06-22] MEDS: LOPERAMIDE HCL 2 MG CAPSULE PO (10:49)
[2022-06-22] MEDS: NON-FORMULARY MEDICATION 1 EACH SUBCUT (11:10)
--- NOTE | 2022-06-22 13:41 | PC.NURSE ---
Loose Stool: Resident had 3 episode of loose stool ans she was given PRN Imodium 2mg with good results at 1146. No more episode of loose stool after that.
[2022-06-22] MEDS: SENNOSIDES 1 TAB TABLET PO (19:16)
[2022-06-22] MEDS: MELATONIN 3 MG TABLET PO (19:17)
[2022-06-23] MEDS: OMEPRAZOLE 20 MG CAPSULE DR PO (06:28)
[2022-06-23] MEDS: ALBUTEROL INHALER 2 PUFF IH ×4 (07:09→19:26)
[2022-06-23] MEDS: POTASSIUM CHLORIDE 10 MEQ CAPSULE ER PO (07:09)
[2022-06-23] MEDS: ASPIRIN 81 MG TABLET EC PO (07:09)
[2022-06-23] MEDS: METOPROLOL SUCCINATE (XL) 50 MG TAB 25 MG PO (07:09)
[2022-06-23] MEDS: glipiZIDE 2.5 MG ER TAB 5 MG PO (07:09)
[2022-06-23] MEDS: NON-FORMULARY MEDICATION 1 EACH INH (07:09)
[2022-06-23] MEDS: FUROSEMIDE 40 MG TABLET 60 MG PO (07:09)
[2022-06-23] MEDS: VENLAFAXINE HCL ER 37.5 MG CAPSULE PO (07:09)
[2022-06-23] MEDS: ACETAMINOPHEN 500 MG TABLET 1000 MG PO ×3 (07:09→19:26)
[2022-06-23] MEDS: VENLAFAXINE ER 75 MG CAPSULE PO (07:09)
[2022-06-23] MEDS: METFORMIN 1,000 MG TABLET 1000 MG PO ×2 (07:09→17:24)
[2022-06-23] MEDS: CARBOXYMETHYLCELLULOSE (REFRESH PLUS) TEARS 1 DROP EYE-BOTH ×4 (07:09→19:26)
[2022-06-23] MEDS: NICOTINE 4 MG GUM BUCCAL (07:10)
[2022-06-23] MEDS: SENNOSIDES 1 TAB TABLET PO (19:26)
[2022-06-23] MEDS: OXYCODONE 5 MG TABLET PO (19:26)
[2022-06-24] MEDS: OMEPRAZOLE 20 MG CAPSULE DR PO (06:25)
[2022-06-24] MEDS: METFORMIN 1,000 MG TABLET 1000 MG PO ×2 (07:42→17:01)
[2022-06-24] MEDS: FOLIC ACID 800 MCG PO (07:42)
[2022-06-24] MEDS: METOPROLOL SUCCINATE (XL) 50 MG TAB 25 MG PO (07:42)
[2022-06-24] MEDS: glipiZIDE 2.5 MG ER TAB 5 MG PO (07:42)
[2022-06-24] MEDS: VENLAFAXINE ER 75 MG CAPSULE PO (07:42)
[2022-06-24] MEDS: ACETAMINOPHEN 500 MG TABLET 1000 MG PO ×3 (07:42→19:17)
[2022-06-24] MEDS: FUROSEMIDE 40 MG TABLET 60 MG PO (07:42)
[2022-06-24] MEDS: ALBUTEROL INHALER 2 PUFF IH ×4 (07:42→19:17)
[2022-06-24] MEDS: ASPIRIN 81 MG TABLET EC PO (07:42)
[2022-06-24] MEDS: VENLAFAXINE HCL ER 37.5 MG CAPSULE PO (07:43)
[2022-06-24] MEDS: NICOTINE 4 MG GUM BUCCAL ×2 (07:43→15:43)
[2022-06-24] MEDS: NON-FORMULARY MEDICATION 1 EACH INH (07:43)
[2022-06-24] MEDS: CARBOXYMETHYLCELLULOSE (REFRESH PLUS) TEARS 1 DROP EYE-BOTH ×4 (07:43→19:17)
[2022-06-24] MEDS: POTASSIUM CHLORIDE 10 MEQ CAPSULE ER PO (07:43)
[2022-06-24] MEDS: OXYCODONE 5 MG TABLET PO (19:17)
[2022-06-24] MEDS: SENNOSIDES 1 TAB TABLET PO (19:17)
[2022-06-25] MEDS: OMEPRAZOLE 20 MG CAPSULE DR PO (06:21)
[2022-06-25] MEDS: ACETAMINOPHEN 500 MG TABLET 1000 MG PO ×3 (07:57→19:18)
[2022-06-25] MEDS: ALBUTEROL INHALER 2 PUFF IH ×4 (07:57→19:18)
[2022-06-25] MEDS: ASPIRIN 81 MG TABLET EC PO (07:58)
[2022-06-25] MEDS: glipiZIDE 2.5 MG ER TAB 5 MG PO (07:58)
[2022-06-25] MEDS: FOLIC ACID 800 MCG PO (07:58)
[2022-06-25] MEDS: CARBOXYMETHYLCELLULOSE (REFRESH PLUS) TEARS 1 DROP EYE-BOTH ×4 (07:58→19:18)
[2022-06-25] MEDS: METOPROLOL SUCCINATE (XL) 50 MG TAB 25 MG PO (07:58)
[2022-06-25] MEDS: VENLAFAXINE ER 75 MG CAPSULE PO (07:58)
[2022-06-25] MEDS: FUROSEMIDE 40 MG TABLET 60 MG PO (07:58)
[2022-06-25] MEDS: POTASSIUM CHLORIDE 10 MEQ CAPSULE ER PO (07:58)
[2022-06-25] MEDS: NON-FORMULARY MEDICATION 1 EACH INH (07:58)
[2022-06-25] MEDS: VENLAFAXINE HCL ER 37.5 MG CAPSULE PO (07:58)
[2022-06-25] MEDS: METFORMIN 1,000 MG TABLET 1000 MG PO ×2 (07:58→17:17)
[2022-06-25] MEDS: NICOTINE 4 MG GUM BUCCAL (17:17)
[2022-06-25] MEDS: SENNOSIDES 1 TAB TABLET PO (19:18)
[2022-06-25] MEDS: MELATONIN 3 MG TABLET PO (20:15)
--- NOTE | 2022-06-25 22:01 | PC.NURSE ---
Insomnia: Resident requested PRN Melatonin at 2014 due to sleep difficulty.
[2022-06-26] MEDS: OMEPRAZOLE 20 MG CAPSULE DR PO (06:48)
[2022-06-26] MEDS: NICOTINE 4 MG GUM BUCCAL ×2 (06:54→17:14)
[2022-06-26] MEDS: ACETAMINOPHEN 500 MG TABLET 1000 MG PO ×3 (07:32→20:09)
[2022-06-26] MEDS: ALBUTEROL INHALER 2 PUFF IH ×4 (07:32→20:10)
[2022-06-26] MEDS: ASPIRIN 81 MG TABLET EC PO (07:32)
[2022-06-26] MEDS: CARBOXYMETHYLCELLULOSE (REFRESH PLUS) TEARS 1 DROP EYE-BOTH ×4 (07:32→20:10)
[2022-06-26] MEDS: NON-FORMULARY MEDICATION 1 EACH INH (07:32)
[2022-06-26] MEDS: VENLAFAXINE ER 75 MG CAPSULE PO (07:32)
[2022-06-26] MEDS: METOPROLOL SUCCINATE (XL) 50 MG TAB 25 MG PO (07:32)
[2022-06-26] MEDS: FOLIC ACID 800 MCG PO (07:32)
[2022-06-26] MEDS: VENLAFAXINE HCL ER 37.5 MG CAPSULE PO (07:33)
[2022-06-26] MEDS: glipiZIDE 2.5 MG ER TAB 5 MG PO (08:30)
[2022-06-26] MEDS: FUROSEMIDE 40 MG TABLET 60 MG PO (08:30)
[2022-06-26] MEDS: POTASSIUM CHLORIDE 10 MEQ CAPSULE ER PO (08:30)
[2022-06-26] MEDS: METFORMIN 1,000 MG TABLET 1000 MG PO ×2 (08:30→17:13)
[2022-06-26] MEDS: OXYCODONE 5 MG TABLET PO (20:10)
[2022-06-26] MEDS: SENNOSIDES 1 TAB TABLET PO (20:10)
[2022-06-27] MEDS: OXYCODONE 5 MG TABLET PO ×2 (06:20→17:12)
[2022-06-27] MEDS: OMEPRAZOLE 20 MG CAPSULE DR PO (06:25)
[2022-06-27] MEDS: NICOTINE 4 MG GUM BUCCAL ×2 (06:30→17:00)
[2022-06-27] MEDS: VENLAFAXINE ER 75 MG CAPSULE PO (07:03)
[2022-06-27] MEDS: METOPROLOL SUCCINATE (XL) 50 MG TAB 25 MG PO (07:03)
[2022-06-27] MEDS: ASPIRIN 81 MG TABLET EC PO (07:03)
[2022-06-27] MEDS: FOLIC ACID 800 MCG PO (07:03)
[2022-06-27] MEDS: ALBUTEROL INHALER 2 PUFF IH ×4 (07:03→19:21)
[2022-06-27] MEDS: ACETAMINOPHEN 500 MG TABLET 1000 MG PO ×3 (07:03→19:21)
[2022-06-27] MEDS: VENLAFAXINE HCL ER 37.5 MG CAPSULE PO (07:04)
[2022-06-27] MEDS: CARBOXYMETHYLCELLULOSE (REFRESH PLUS) TEARS 1 DROP EYE-BOTH ×4 (07:04→19:21)
[2022-06-27] MEDS: NON-FORMULARY MEDICATION 1 EACH INH (07:04)
[2022-06-27] MEDS: POTASSIUM CHLORIDE 10 MEQ CAPSULE ER PO (08:51)
[2022-06-27] MEDS: METFORMIN 1,000 MG TABLET 1000 MG PO ×2 (08:51→17:00)
[2022-06-27] MEDS: glipiZIDE 2.5 MG ER TAB 5 MG PO (08:51)
[2022-06-27] MEDS: FUROSEMIDE 40 MG TABLET 60 MG PO (08:51)
--- NOTE | 2022-06-27 09:14 | PC.NURSE ---
Health Status note: Resident eating late breakfast in room this morning per her request. She reported to this credit underwriter that she slept on her left arm last night and had what she reported as 10/10 pain to L shoulder/arm upon rising this morning due to sleeping on the arm where she had received Covid booster last week. Resident noted to be grabbing at left shoulder/arm and restlessness was also noted. Staff Physical Therapy Assistant administered PRN Oxycodone, encouraged rest and provided ice pack along with resident performing repositioning from bed to recliner. Resident reported relief upon followup.
--- NOTE | 2022-06-27 13:58 | PC.NURSE ---
Health status note: Res had lunch in dining room today though returned to room after lunch and c/o upset stomach. Resident noted to be afebrile with temp of 98.1. Staff encouraged resident to rest which she is doing in bed at this time. Resident reported no loose stool this shift. She reported having a large formed BM earlier in the shift.
[2022-06-27] MEDS: SENNOSIDES 1 TAB TABLET PO (19:21)
--- NOTE | 2022-06-28 00:45 | PC.NURSE ---
WEEKLY CHARTING WEEK 2 Vital signs reviewed with no concerns. Comprehensive and temporary care plan reviewed with no changes made. Resident is independent with transfer, bed mobility and ambulation. Bilateral quater side rails on bed all the time or an enabler for bed mobility. Use walker to transfer and ambulation. Res is a low fall risk. Intervention: Call light within reach, bed in low position with breaks lock, Keep area free of clutter.
[2022-06-28] MEDS: OMEPRAZOLE 20 MG CAPSULE DR PO (06:40)
[2022-06-28] MEDS: NICOTINE 4 MG GUM BUCCAL ×2 (06:50→17:18)
--- NOTE | 2022-06-28 07:16 | PC.NURSE ---
Weekly Charting, Week 2- Mobility: Comprehensive and temporary care plan reviewed.? No changes made. Nothing added to temporary care plan. Resident is independent with transfers, ambulation, and bed/chair mobility. Ambulates with a 4ww.? Bilateral 1/4 side rails up to aid for positioning/bed mobility & comfort per her request. Vital signs reviewed, BP few low diastolic values. Continue weekly monitoring and refer to provider as needed. Fall: No falls the past month. Remains a low fall risk according to assessment done on 05/30/22. Fall interventions: call light within reach, bed in low position with brakes locked, keep area free of clutters.
[2022-06-28] MEDS: FUROSEMIDE 40 MG TABLET 60 MG PO (07:49)
[2022-06-28] MEDS: glipiZIDE 2.5 MG ER TAB 5 MG PO (07:49)
[2022-06-28] MEDS: ALBUTEROL INHALER 2 PUFF IH ×4 (07:49→21:14)
[2022-06-28] MEDS: METFORMIN 1,000 MG TABLET 1000 MG PO ×2 (07:49→17:18)
[2022-06-28] MEDS: ASPIRIN 81 MG TABLET EC PO (07:49)
[2022-06-28] MEDS: ACETAMINOPHEN 500 MG TABLET 1000 MG PO ×3 (07:49→21:14)
[2022-06-28] MEDS: VENLAFAXINE ER 75 MG CAPSULE PO (07:49)
[2022-06-28] MEDS: CARBOXYMETHYLCELLULOSE (REFRESH PLUS) TEARS 1 DROP EYE-BOTH ×4 (07:50→21:15)
[2022-06-28] MEDS: POTASSIUM CHLORIDE 10 MEQ CAPSULE ER PO (07:50)
[2022-06-28] MEDS: METOPROLOL SUCCINATE (XL) 50 MG TAB 25 MG PO (07:50)
[2022-06-28] MEDS: FOLIC ACID 800 MCG PO (07:50)
[2022-06-28] MEDS: VENLAFAXINE HCL ER 37.5 MG CAPSULE PO (07:50)
[2022-06-28] MEDS: NON-FORMULARY MEDICATION 1 EACH INH (07:50)
[2022-06-28] MEDS: OXYCODONE 5 MG TABLET PO ×2 (15:51→21:30)
[2022-06-28] MEDS: SENNOSIDES 1 TAB TABLET PO (21:14)
--- NOTE | 2022-06-28 21:25 | PC.NURSE ---
Pain: At the beginning of this shift, in moaning and groaning mood, resident C/O excruciating 10/10 pain to left shoulder. Claims pain is caused by previous COVID inoculation. Ice pack applied to affected area, rest encouraged, and PRN Oxycodone 5 mg given Q6H. Intervention effective. Will continue to monitor.
[2022-06-29 07:00] VITALS: BP 155/60; PULSE 68; RESP 18; TEMP 36.4; O2SAT 95; BMI 21.2
[2022-06-29] MEDS: OMEPRAZOLE 20 MG CAPSULE DR PO (07:06)
[2022-06-29] MEDS: NICOTINE 4 MG GUM BUCCAL ×2 (07:06→19:12)
[2022-06-29] MEDS: OXYCODONE 5 MG TABLET PO ×2 (07:07→19:12)
[2022-06-29] MEDS: FUROSEMIDE 40 MG TABLET 60 MG PO (07:37)
[2022-06-29] MEDS: VENLAFAXINE ER 75 MG CAPSULE PO (07:37)
[2022-06-29] MEDS: ACETAMINOPHEN 500 MG TABLET 1000 MG PO ×3 (07:37→19:11)
[2022-06-29] MEDS: FOLIC ACID 800 MCG PO (07:37)
[2022-06-29] MEDS: METFORMIN 1,000 MG TABLET 1000 MG PO ×2 (07:37→17:08)
[2022-06-29] MEDS: ASPIRIN 81 MG TABLET EC PO (07:37)
[2022-06-29] MEDS: glipiZIDE 2.5 MG ER TAB 5 MG PO (07:37)
[2022-06-29] MEDS: METOPROLOL SUCCINATE (XL) 50 MG TAB 25 MG PO (07:37)
[2022-06-29] MEDS: ALBUTEROL INHALER 2 PUFF IH ×4 (07:37→19:11)
[2022-06-29] MEDS: VENLAFAXINE HCL ER 37.5 MG CAPSULE PO (07:38)
[2022-06-29] MEDS: CARBOXYMETHYLCELLULOSE (REFRESH PLUS) TEARS 1 DROP EYE-BOTH ×4 (07:38→19:11)
[2022-06-29] MEDS: POTASSIUM CHLORIDE 10 MEQ CAPSULE ER PO (07:38)
[2022-06-29] MEDS: NON-FORMULARY MEDICATION 1 EACH INH (07:38)
[2022-06-29] MEDS: SENNOSIDES 1 TAB TABLET PO (19:11)
[2022-06-30] MEDS: ALBUTEROL INHALER 2 PUFF IH ×4 (07:05→19:16)
[2022-06-30] MEDS: VENLAFAXINE ER 75 MG CAPSULE PO (07:05)
[2022-06-30] MEDS: OMEPRAZOLE 20 MG CAPSULE DR PO (07:05)
[2022-06-30] MEDS: ACETAMINOPHEN 500 MG TABLET 1000 MG PO ×3 (07:05→19:16)
[2022-06-30] MEDS: ASPIRIN 81 MG TABLET EC PO (07:05)
[2022-06-30] MEDS: VENLAFAXINE HCL ER 37.5 MG CAPSULE PO (07:06)
[2022-06-30] MEDS: CARBOXYMETHYLCELLULOSE (REFRESH PLUS) TEARS 1 DROP EYE-BOTH ×4 (07:06→19:16)
[2022-06-30] MEDS: METOPROLOL SUCCINATE (XL) 50 MG TAB 25 MG PO (07:06)
[2022-06-30] MEDS: NON-FORMULARY MEDICATION 1 EACH INH (07:06)
[2022-06-30] MEDS: NICOTINE 4 MG GUM BUCCAL ×2 (07:10→17:00)
[2022-06-30] MEDS: glipiZIDE 2.5 MG ER TAB 5 MG PO (08:15)
[2022-06-30] MEDS: METFORMIN 1,000 MG TABLET 1000 MG PO ×2 (08:15→17:00)
[2022-06-30] MEDS: FUROSEMIDE 40 MG TABLET 60 MG PO (08:15)
[2022-06-30] MEDS: POTASSIUM CHLORIDE 10 MEQ CAPSULE ER PO (08:16)
--- NOTE | 2022-06-30 14:21 | PC.SOCIAL ---
Met with resident and provided her with gift card for $392.00 to take with her tomorrow when she goes out with her daughter to eat. Suggested that resident purchase popcorn and cheese balls with the card and any other items she is in need of. Resident will purchase those items. Resident asked that this worker provide information about gift card to her daughter, Elaina Elkins. Discussed lock box with resident and she would like to have one in her room to put her gift cards in. Completed a maintenance request slip to have lock box installed. Task Number [id number]. Social work will follow up as necessary.
[2022-06-30] MEDS: SENNOSIDES 1 TAB TABLET PO (19:16)
[2022-06-30] MEDS: OXYCODONE 5 MG TABLET PO (20:08)
[2022-07-01] MEDS: OMEPRAZOLE 20 MG CAPSULE DR PO (07:05)
[2022-07-01] MEDS: ACETAMINOPHEN 500 MG TABLET 1000 MG PO ×3 (07:05→19:05)
[2022-07-01] MEDS: FOLIC ACID 800 MCG PO (07:06)
[2022-07-01] MEDS: ASPIRIN 81 MG TABLET EC PO (07:06)
[2022-07-01] MEDS: VENLAFAXINE ER 75 MG CAPSULE PO (07:06)
[2022-07-01] MEDS: CARBOXYMETHYLCELLULOSE (REFRESH PLUS) TEARS 1 DROP EYE-BOTH ×4 (07:06→19:05)
[2022-07-01] MEDS: ALBUTEROL INHALER 2 PUFF IH ×4 (07:06→19:05)
[2022-07-01] MEDS: VENLAFAXINE HCL ER 37.5 MG CAPSULE PO (07:06)
[2022-07-01] MEDS: METOPROLOL SUCCINATE (XL) 50 MG TAB 25 MG PO (07:06)
[2022-07-01] MEDS: NON-FORMULARY MEDICATION 1 EACH INH (07:06)
[2022-07-01] MEDS: NICOTINE 4 MG GUM BUCCAL ×2 (07:10→17:02)
[2022-07-01] MEDS: POTASSIUM CHLORIDE 10 MEQ CAPSULE ER PO (07:52)
[2022-07-01] MEDS: METFORMIN 1,000 MG TABLET 1000 MG PO ×2 (07:52→17:02)
[2022-07-01] MEDS: glipiZIDE 2.5 MG ER TAB 5 MG PO (07:52)
[2022-07-01] MEDS: FUROSEMIDE 40 MG TABLET 60 MG PO (07:52)
[2022-07-01] MEDS: LOPERAMIDE HCL 2 MG CAPSULE PO (09:45)
--- NOTE | 2022-07-01 11:28 | PC.NURSE ---
Loose stool: Resident had loose stool X 3 . Given PRN Tab Loperamide 2mg with good results.
[2022-07-01] MEDS: OXYCODONE 5 MG TABLET PO (18:41)
[2022-07-01] MEDS: SENNOSIDES 1 TAB TABLET PO (19:05)
[2022-07-02] MEDS: ASPIRIN 81 MG TABLET EC PO (07:15)
[2022-07-02] MEDS: OMEPRAZOLE 20 MG CAPSULE DR PO (07:15)
[2022-07-02] MEDS: VENLAFAXINE ER 75 MG CAPSULE PO (07:15)
[2022-07-02] MEDS: ACETAMINOPHEN 500 MG TABLET 1000 MG PO ×2 (07:15→19:41)
[2022-07-02] MEDS: ALBUTEROL INHALER 2 PUFF IH ×3 (07:15→19:41)
[2022-07-02] MEDS: VENLAFAXINE HCL ER 37.5 MG CAPSULE PO (07:16)
[2022-07-02] MEDS: METOPROLOL SUCCINATE (XL) 50 MG TAB 25 MG PO (07:16)
[2022-07-02] MEDS: NON-FORMULARY MEDICATION 1 EACH INH (07:16)
[2022-07-02] MEDS: FOLIC ACID 800 MCG PO (07:16)
[2022-07-02] MEDS: CARBOXYMETHYLCELLULOSE (REFRESH PLUS) TEARS 1 DROP EYE-BOTH ×3 (07:16→19:41)
[2022-07-02] MEDS: glipiZIDE 2.5 MG ER TAB 5 MG PO (09:13)
[2022-07-02] MEDS: METFORMIN 1,000 MG TABLET 1000 MG PO ×2 (09:13→17:20)
[2022-07-02] MEDS: POTASSIUM CHLORIDE 10 MEQ CAPSULE ER PO (09:13)
--- NOTE | 2022-07-02 10:21 | PC.NURSE ---
TEO: Resident left at 1020 with family to celebrate Mother`s Day Resident was sent with noon med ( Tylenolol) tab Oxycodone (1tab) and 1 strip of PRN Loperamide ( in case she has loose stool) .Resident refused to take tab Lasix today. Will be back after supper.
[2022-07-02] MEDS: LOPERAMIDE HCL 2 MG CAPSULE PO ×2 (14:01→18:48)
[2022-07-02] MEDS: NICOTINE 4 MG GUM BUCCAL (17:05)
[2022-07-02] MEDS: OXYCODONE 5 MG TABLET PO (18:57)
[2022-07-02] MEDS: SENNOSIDES 1 TAB TABLET PO (19:41)
[2022-07-03] MEDS: OMEPRAZOLE 20 MG CAPSULE DR PO (07:25)
[2022-07-03] MEDS: VENLAFAXINE ER 75 MG CAPSULE PO (07:25)
[2022-07-03] MEDS: ASPIRIN 81 MG TABLET EC PO (07:25)
[2022-07-03] MEDS: ACETAMINOPHEN 500 MG TABLET 1000 MG PO ×3 (07:25→19:12)
[2022-07-03] MEDS: ALBUTEROL INHALER 2 PUFF IH ×4 (07:25→19:12)
[2022-07-03] MEDS: NON-FORMULARY MEDICATION 1 EACH INH (07:26)
[2022-07-03] MEDS: FOLIC ACID 800 MCG PO (07:26)
[2022-07-03] MEDS: CARBOXYMETHYLCELLULOSE (REFRESH PLUS) TEARS 1 DROP EYE-BOTH ×4 (07:26→19:12)
[2022-07-03] MEDS: METOPROLOL SUCCINATE (XL) 50 MG TAB 25 MG PO (07:26)
[2022-07-03] MEDS: VENLAFAXINE HCL ER 37.5 MG CAPSULE PO (07:27)
[2022-07-03] MEDS: NICOTINE 4 MG GUM BUCCAL (07:37)
[2022-07-03] MEDS: glipiZIDE 2.5 MG ER TAB 5 MG PO (08:28)
[2022-07-03] MEDS: POTASSIUM CHLORIDE 10 MEQ CAPSULE ER PO (08:28)
[2022-07-03] MEDS: FUROSEMIDE 40 MG TABLET 60 MG PO (08:28)
[2022-07-03] MEDS: METFORMIN 1,000 MG TABLET 1000 MG PO ×2 (08:28→17:45)
[2022-07-03] MEDS: SENNOSIDES 1 TAB TABLET PO (19:12)
[2022-07-04] MEDS: OMEPRAZOLE 20 MG CAPSULE DR PO (06:43)
[2022-07-04] MEDS: METFORMIN 1,000 MG TABLET 1000 MG PO ×2 (07:03→17:41)
[2022-07-04] MEDS: ALBUTEROL INHALER 2 PUFF IH ×4 (07:03→19:45)
[2022-07-04] MEDS: ASPIRIN 81 MG TABLET EC PO (07:03)
[2022-07-04] MEDS: METOPROLOL SUCCINATE (XL) 50 MG TAB 25 MG PO (07:03)
[2022-07-04] MEDS: glipiZIDE 2.5 MG ER TAB 5 MG PO (07:03)
[2022-07-04] MEDS: ACETAMINOPHEN 500 MG TABLET 1000 MG PO ×3 (07:03→19:45)
[2022-07-04] MEDS: VENLAFAXINE ER 75 MG CAPSULE PO (07:03)
[2022-07-04] MEDS: CARBOXYMETHYLCELLULOSE (REFRESH PLUS) TEARS 1 DROP EYE-BOTH ×4 (07:04→19:45)
[2022-07-04] MEDS: VENLAFAXINE HCL ER 37.5 MG CAPSULE PO (07:04)
[2022-07-04] MEDS: NON-FORMULARY MEDICATION 1 EACH INH (07:04)
[2022-07-04] MEDS: FOLIC ACID 800 MCG PO (07:04)
[2022-07-04] MEDS: NICOTINE 4 MG GUM BUCCAL ×2 (07:05→17:42)
[2022-07-04] MEDS: FUROSEMIDE 40 MG TABLET 60 MG PO (08:25)
[2022-07-04] MEDS: POTASSIUM CHLORIDE 10 MEQ CAPSULE ER PO (08:25)
--- NOTE | 2022-07-04 11:47 | PC.SPIRITC ---
I provided follow up visit from last week when Tran expressed having difficulty coping with pain, per Tran, she is doing much better.
--- NOTE | 2022-07-04 15:00 | PC.NURSE ---
STATUS: This nurse was approached by activity staff who noted that resident seems off and confused today. Floor nurses were informed to monitor resident closely for changes.
[2022-07-04] MEDS: SENNOSIDES 1 TAB TABLET PO (19:45)
--- NOTE | 2022-07-05 07:10 | PC.NURSE ---
WEEKLY CHARTING ?WEEK 3 : TOILETING AND SKIN Vital signs reviewed, no concerns, continue weekly monitoring, blood sugar checks on Sunday evening. Comprehensive and temporary care plan reviewed, no changes made and nothing added to temporary care plan. Resident is independent with toileting using walker,including changing pads, bryanna cares and grooming. She is? continent of bowel and bladder with some? occasional urgency and incontinence on? her way to bathroom. She wears pull ups ; she asks for assistance when she needs it . Skin: Skin is checked routinely on bath day, no concerns at this time.
[2022-07-05] MEDS: NICOTINE 4 MG GUM BUCCAL ×2 (07:20→17:29)
[2022-07-05] MEDS: METOPROLOL SUCCINATE (XL) 50 MG TAB 25 MG PO (08:18)
[2022-07-05] MEDS: ALBUTEROL INHALER 2 PUFF IH ×4 (08:18→20:34)
[2022-07-05] MEDS: VENLAFAXINE ER 75 MG CAPSULE PO (08:18)
[2022-07-05] MEDS: FOLIC ACID 800 MCG PO (08:18)
[2022-07-05] MEDS: NON-FORMULARY MEDICATION 1 EACH INH (08:18)
[2022-07-05] MEDS: METFORMIN 1,000 MG TABLET 1000 MG PO ×2 (08:18→17:28)
[2022-07-05] MEDS: VENLAFAXINE HCL ER 37.5 MG CAPSULE PO (08:18)
[2022-07-05] MEDS: CARBOXYMETHYLCELLULOSE (REFRESH PLUS) TEARS 1 DROP EYE-BOTH ×4 (08:18→20:34)
[2022-07-05] MEDS: ASPIRIN 81 MG TABLET EC PO (08:18)
[2022-07-05] MEDS: OMEPRAZOLE 20 MG CAPSULE DR PO (08:18)
[2022-07-05] MEDS: POTASSIUM CHLORIDE 10 MEQ CAPSULE ER PO (08:18)
[2022-07-05] MEDS: glipiZIDE 2.5 MG ER TAB 5 MG PO (08:18)
[2022-07-05] MEDS: FUROSEMIDE 40 MG TABLET 60 MG PO (08:18)
[2022-07-05] MEDS: ACETAMINOPHEN 500 MG TABLET 1000 MG PO ×3 (08:18→20:34)
--- NOTE | 2022-07-05 08:30 | PC.NURSE ---
Fall F/U : Resident seem weak and refused to go to the dining table for breakfast .Took all her medication with any issues. Vitals are WNL : T: 97.6, P88, BP 130/70, R 22, And O2 94% ( RA) Took only 10% of her breakfast and c/o feeling tired. Slept all morning . Grasp both hand are with baseline. Pupils are both equal and reactive. Able to walk ambulate with any problem. No facial drooping
[2022-07-05] MEDS: OXYCODONE 5 MG TABLET PO ×2 (10:30→18:37)
--- NOTE | 2022-07-05 10:55 | PC.NURSE ---
Weekly Charting, Week 3 - Toileting: Comprehensive and temporary care plan reviewed. No changes made and nothing added to temporary care plan. Resident is generally continent of bowel & bladder. Has occasional urgency and incontinence on way to the toilet. Transfer/ambulate independently with 4ww to the toilet. Is independent with toileting including pads, bryanna cares and clothing management. Will ask for assist as needed. Wears pull ups. Vital signs reviewed, no concerns. Continue weekly monitoring. Skin: No issues at this time. Is able to report with concerns. Skin is checked routinely on bath day.
--- NOTE | 2022-07-05 11:02 | LTC.FALL ---
[facility] Fall Note: o Fall Date: 07/05/22 o Fall Time:0620 o What happened? Resident was found on the floor near the bathroom door ( unwitnessed) o Who found the resident and who responded? ( SABRINA Merritt) o What was the resident doing? going to the bathroom o How the resident was found (knees, left side, arm under them), any hazards (cords, objects, nonskid slippers) brakes on? Proper equipment? Lying down on her stomach o Did you assess for head trauma, spinal injuries, skeletal injuries, neurological changes and status, and head and neck pain? What did you find? No injury o Did you assess ROM in shoulders, elbows, hips, knees, any other affected areas, unless there is suspected spinal injury. No injury o Did you Assess for pain or discomfort? No pain o What are the injuries and how are they being treated? No injuries o How was the resident transferred from the floor? Managed to get up with help o Did you call the MD or put a note in the COSMETOLOGY INSTRUCTOR book? Yes o Enter vital signs. T: 97.6, P:94,B/P: 150/70, R: 24 and O2: 95%(RA) o Did you notify family? Yes o What was the root cause of the fall? Why did it happen? Resident's knee suddenly felt weak , she lowered herself to the floor o Create an IMMEDIATE INTERVENTION to ensure that this won't immediately happen again. (Put in temporary care plan too) Yes o Complete Safety report and huddle (now one form) Yes o If resident is seen in ED or fractured something, note that you started a [facility] Report process. Instructions are at the East nurse's desk in a red binder labeled [facility] report.
--- NOTE | 2022-07-05 12:52 | PC.NURSE ---
Fall Incident: Resident was found sitting on the floor in-front of the bathroom at 0620 by SABRINA who heard her calling. Resident informed that she slid from the recliner and could not get up or use the call light. She crawl to the bathroom to call for help. The fall was not witnessed. She was assisted X 1 person and was help to the bathroom and then back to the recliner. Resident seem weak and not no injury upon examination. Vital are as follows : T 97.8,P: 94 BP : 150/70 O2 95%(RA) &R: 24 Vitals and neuro check are done every 4 hours.
[2022-07-05 13:20] VITALS: BP 142/74; PULSE 84; RESP 22; TEMP 36.4; O2SAT 94
[2022-07-05 13:54] VITALS: BP 118/61; PULSE 88; RESP 18; TEMP 36.8; O2SAT 92
--- NOTE | 2022-07-05 13:56 | PC.NURSE ---
Fall F/U: Resident has bee in her recliner most of the morning and got into bed at 1330. Ate about 25% of lunch. Vitals are as follows : T:98.2, P: 88, BP 118/61, O2 :92% (RA) R 18. No changes in LOC and ROM. No c/o pain on other part of the body except for her usual right shoulder chronic pain. Pupils are equal and reactive. Resident is alert and ate about 25% of lunch.
--- NOTE | 2022-07-05 15:00 | PC.NURSE ---
Fall follow-up: Vital signs and PERRLA assessment are all normal. Equal strength in hand grasps. Able to tolerate ROM without C/O pain to spine. Cognition status remains at baseline. Peripheral zhang full, and denies blurriness or headaches at this time. No vomiting, nausea, or signs of intracranial pressure, as related to fall incident, noted at this time. However, exacerbation of chronic pain of the right pain reported - ice pack and warm towels applied unchangeably. Will continue to monitor.
[2022-07-05 18:57] VITALS: BP 128/68; PULSE 91; RESP 20; TEMP 37.1; O2SAT 92
[2022-07-05] MEDS: SENNOSIDES 1 TAB TABLET PO (20:34)
--- NOTE | 2022-07-05 21:23 | PC.NURSE ---
Fall follow-up: Vital signs and PERRLA assessment are all normal. Equal strength in hand grasps. Able to tolerate ROM without C/O pain to spine. Peripheral zhang full, and denies blurriness or headaches at this time. No vomiting, nausea, or signs of intracranial pressure, as related to fall incident, noted at this time. C/O of excruciating pain, rated 10/10, to right shoulder - ice pack applied, reposition performed as tolerated, Oxycodone administered at 1857, and rest encouraged. Alert and oriented, but exhibited some confusion. Will continue to monitor.
--- NOTE | 2022-07-05 23:59 | PC.NURSE ---
Pain: Resident C/O 10/10 pain to right shoulder. Ice pack applied, rest encouraged, repositioning performed as tolerated, and Oxycodone administered. Resident reported decreased in pain.
[2022-07-06 02:57] VITALS: BP 133/66; PULSE 94; RESP 18; TEMP 36.4; O2SAT 94
--- NOTE | 2022-07-06 03:33 | PC.NURSE ---
Fall F/U: Resident is wake at this time sitting in recliner. She is alert and oriented, cooperative with assessment. Pupil is equal reactive to light. Neuro and ROM within normal. Denies pain. VSS: Temp 97.6, BP 133/66, RR 18, HR 94, O2 sat 94% at RA.
[2022-07-06] MEDS: NICOTINE 4 MG GUM BUCCAL ×3 (07:20→18:15)
[2022-07-06] MEDS: ALBUTEROL INHALER 2 PUFF IH ×4 (07:38→19:19)
[2022-07-06] MEDS: ACETAMINOPHEN 500 MG TABLET 1000 MG PO ×3 (07:38→19:18)
[2022-07-06] MEDS: glipiZIDE 2.5 MG ER TAB 5 MG PO (07:38)
[2022-07-06] MEDS: OMEPRAZOLE 20 MG CAPSULE DR PO (07:38)
[2022-07-06] MEDS: VENLAFAXINE ER 75 MG CAPSULE PO (07:38)
[2022-07-06] MEDS: ASPIRIN 81 MG TABLET EC PO (07:38)
[2022-07-06] MEDS: CARBOXYMETHYLCELLULOSE (REFRESH PLUS) TEARS 1 DROP EYE-BOTH ×4 (07:39→19:19)
[2022-07-06] MEDS: METFORMIN 1,000 MG TABLET 1000 MG PO ×2 (07:39→17:15)
[2022-07-06] MEDS: POTASSIUM CHLORIDE 10 MEQ CAPSULE ER PO (07:39)
[2022-07-06] MEDS: NON-FORMULARY MEDICATION 1 EACH INH (07:39)
[2022-07-06] MEDS: VENLAFAXINE HCL ER 37.5 MG CAPSULE PO (07:39)
[2022-07-06] MEDS: METOPROLOL SUCCINATE (XL) 50 MG TAB 25 MG PO (07:39)
[2022-07-06] MEDS: FOLIC ACID 800 MCG PO (07:39)
[2022-07-06] MEDS: FUROSEMIDE 40 MG TABLET 60 MG PO (07:39)
[2022-07-06 09:20] VITALS: BP 121/76; PULSE 106; RESP 24; TEMP 36.6; O2SAT 96
--- NOTE | 2022-07-06 10:46 | CRLHL7_ITS ---
For Patients: As a result of the Cures Act, medical imaging exams and procedure reports are released immediately into your electronic medical record. You may view this report before your referring provider. If you have questions, please contact your health care provider. INDICATION: Chest pain. TECHNIQUE: Chest 1 view. COMPARISON: June 28, 2021. FINDINGS: Cardiovascular and mediastinum: Cardiomediastinal silhouette is within normal limits. Calcific atherosclerosis of the aorta. Lungs and pleural spaces: Bilateral interstitial opacities are identified, increased compared to the prior exam. No evidence of pleural effusion. No pneumothorax identified. Bones and soft tissues: Right reversed total shoulder arthroplasty changes. Diffuse demineralization of the visualized bones.. IMPRESSION: Increased interstitial opacities bilaterally, can be seen in the setting of viral infection, other airways disease. Dictated by Chinyere Cruz MD @ 07/06/2022 1:54:31 PM (Electronically Signed)
[2022-07-06] MEDS: OXYCODONE 5 MG TABLET PO ×2 (11:00→18:45)
--- NOTE | 2022-07-06 11:35 | PC.NURSE ---
Recert Visit: Resident seen by BRAKE MECHANICAnselmo. Orders reviewed and renewed of 75 days with changes. BRAKE MECHANIC updated of fall (no injury) on 07/04, increase weakness and c/o of SOB. Sats 92-95% room air. Order: Chest X-Ray, D/C Hydrocortisone Cream QID PRN.
[2022-07-06] MEDS: NON-FORMULARY MEDICATION 1 EACH SUBCUT (11:39)
[2022-07-06 13:07] VITALS: BP 128/70; PULSE 92; RESP 22; TEMP 36.6; O2SAT 94
--- NOTE | 2022-07-06 13:09 | PC.NURSE ---
Fall F/U : Resident has been in her recliner and bed during this shift. She did not come out for breakfast and lunch, complaining of feeling weak and lethargic. Refused to have a bath today. Ate very poorly. Having productive chesty cough. Vital are WNL T. 97.9, P94, R 22, BP 120/76 and O2 sat was 95% (RA). Resident was using O2 for a short while in the morning due to feeling fainting, O2 sat was at 99% with 2L O2 and it was switch off at 1030. Still feeling weak. Neuro obs are stable, no weakness of the hands grasp, pupils are equal and reactive.
--- NOTE | 2022-07-06 14:12 | PC.NURSE ---
Chest X-Ray result faxed to Anselmo DWYER.
[2022-07-06 14:57] VITALS: BP 130/80; RESP 16; TEMP 36.9; O2SAT 95
[2022-07-06 18:57] VITALS: BP 112/53; PULSE 70; RESP 18; TEMP 37.1; O2SAT 97
[2022-07-06] MEDS: SENNOSIDES 1 TAB TABLET PO (19:19)
--- NOTE | 2022-07-06 22:55 | PC.NURSE ---
NEW Order: Prednisone 40mg take 1 tablet PO QD x5days for COPD exacerbation. Okay to give medication as soon as delivered tomorrow.
[2022-07-06 22:57] VITALS: BP 122/62; PULSE 83; RESP 18; TEMP 36.4; O2SAT 96
--- NOTE | 2022-07-06 23:21 | PC.NURSE ---
Fall F/U: Resident is sleeping in bed. Easily awaken when approach to assess. Alert and oriented. Pupil is equal reactive to light, hands grasp bilateral is strong. denies pain at this time. VSS Temp 97.6, BP 122/62, RR 18, HR 83, O2 sat 96% at RA.
[2022-07-07 02:57] VITALS: BP 130/64; PULSE 93; RESP 18; TEMP 36.4; O2SAT 95
--- NOTE | 2022-07-07 03:23 | PC.NURSE ---
Fall F/U: Resident is sleeping in bed. Awaken upon assessment. Pupil is equal reactives to light. hands grasp bilateral normal. Neuro/ ROM is within normal. No complain of pain. VSS temp 97.6, RR 18, HR 93% O2 sat 95% at 2L via NC.
[2022-07-07] MEDS: NICOTINE 4 MG GUM BUCCAL ×2 (06:55→17:41)
[2022-07-07 06:57] VITALS: BP 119/72; PULSE 67; RESP 20; TEMP 36.6; O2SAT 95
[2022-07-07] MEDS: VENLAFAXINE ER 75 MG CAPSULE PO (07:12)
[2022-07-07] MEDS: OMEPRAZOLE 20 MG CAPSULE DR PO (07:12)
[2022-07-07] MEDS: ACETAMINOPHEN 500 MG TABLET 1000 MG PO ×3 (07:12→19:01)
[2022-07-07] MEDS: glipiZIDE 2.5 MG ER TAB 5 MG PO (07:12)
[2022-07-07] MEDS: ASPIRIN 81 MG TABLET EC PO (07:12)
[2022-07-07] MEDS: ALBUTEROL INHALER 2 PUFF IH ×4 (07:12→19:01)
[2022-07-07] MEDS: METFORMIN 1,000 MG TABLET 1000 MG PO ×2 (07:13→17:41)
[2022-07-07] MEDS: NON-FORMULARY MEDICATION 1 EACH INH (07:13)
[2022-07-07] MEDS: POTASSIUM CHLORIDE 10 MEQ CAPSULE ER PO (07:13)
[2022-07-07] MEDS: VENLAFAXINE HCL ER 37.5 MG CAPSULE PO (07:13)
[2022-07-07] MEDS: FUROSEMIDE 40 MG TABLET 60 MG PO (07:13)
[2022-07-07] MEDS: METOPROLOL SUCCINATE (XL) 50 MG TAB 25 MG PO (07:13)
[2022-07-07] MEDS: CARBOXYMETHYLCELLULOSE (REFRESH PLUS) TEARS 1 DROP EYE-BOTH ×4 (07:14→19:01)
--- NOTE | 2022-07-07 07:59 | PC.NURSE ---
Status: Resident updated CXR result noted by MORTGAGE PROFESSIONAL with order for Prednisone 40 mg daily x 5 days for COPD exacerbation.
[2022-07-07] MEDS: OXYCODONE 5 MG TABLET PO ×2 (08:50→19:03)
--- NOTE | 2022-07-07 12:07 | REH.OT ---
Fall F/U : VS; 119/72, T 98, R 18, P 67, R 20. No complains of pain, no nonverbal indication of pain noted or reported. She is out for breakfast in Dinning room. Neuro: Pupils are equal and reactive to light. Hand grasps equal strength bilateral.
[2022-07-07] MEDS: SENNOSIDES 1 TAB TABLET PO (19:01)
--- NOTE | 2022-07-07 21:27 | PC.NURSE ---
Pain: Resident c/o 09/28 on R shoulder. Rest encouraged, repositioned and oxycodone given at 1902. Interventions effective.
--- NOTE | 2022-07-07 21:30 | PC.NURSE ---
Med Order: New order of prednisone not received, pharmacy called and stated they did not receive order, refaxed.
[2022-07-08] MEDS: OMEPRAZOLE 20 MG CAPSULE DR PO (06:58)
[2022-07-08] MEDS: METOPROLOL SUCCINATE (XL) 50 MG TAB 25 MG PO (07:31)
[2022-07-08] MEDS: METFORMIN 1,000 MG TABLET 1000 MG PO ×2 (07:31→17:36)
[2022-07-08] MEDS: glipiZIDE 2.5 MG ER TAB 5 MG PO (07:31)
[2022-07-08] MEDS: ASPIRIN 81 MG TABLET EC PO (07:31)
[2022-07-08] MEDS: FUROSEMIDE 40 MG TABLET 60 MG PO (07:31)
[2022-07-08] MEDS: VENLAFAXINE ER 75 MG CAPSULE PO (07:31)
[2022-07-08] MEDS: ALBUTEROL INHALER 2 PUFF IH ×4 (07:31→19:39)
[2022-07-08] MEDS: ACETAMINOPHEN 500 MG TABLET 1000 MG PO ×3 (07:31→19:38)
[2022-07-08] MEDS: FOLIC ACID 800 MCG PO (07:31)
[2022-07-08] MEDS: NON-FORMULARY MEDICATION 1 EACH INH (07:32)
[2022-07-08] MEDS: CARBOXYMETHYLCELLULOSE (REFRESH PLUS) TEARS 1 DROP EYE-BOTH ×4 (07:32→19:39)
[2022-07-08] MEDS: NICOTINE 4 MG GUM BUCCAL ×2 (07:32→17:36)
[2022-07-08] MEDS: predniSONE 20 MG TABLET 40 MG PO (07:32)
[2022-07-08] MEDS: POTASSIUM CHLORIDE 10 MEQ CAPSULE ER PO (07:32)
[2022-07-08] MEDS: VENLAFAXINE HCL ER 37.5 MG CAPSULE PO (07:32)
[2022-07-08] MEDS: OXYCODONE 5 MG TABLET PO (18:36)
[2022-07-08] MEDS: SENNOSIDES 1 TAB TABLET PO (19:39)
[2022-07-09] MEDS: OMEPRAZOLE 20 MG CAPSULE DR PO (06:27)
[2022-07-09] MEDS: VENLAFAXINE ER 75 MG CAPSULE PO (07:02)
[2022-07-09] MEDS: glipiZIDE 2.5 MG ER TAB 5 MG PO (07:02)
[2022-07-09] MEDS: ASPIRIN 81 MG TABLET EC PO (07:02)
[2022-07-09] MEDS: ACETAMINOPHEN 500 MG TABLET 1000 MG PO ×3 (07:02→20:46)
[2022-07-09] MEDS: ALBUTEROL INHALER 2 PUFF IH ×4 (07:02→20:46)
[2022-07-09] MEDS: FUROSEMIDE 40 MG TABLET 60 MG PO (07:02)
[2022-07-09] MEDS: METFORMIN 1,000 MG TABLET 1000 MG PO ×2 (07:02→17:13)
[2022-07-09] MEDS: FOLIC ACID 800 MCG PO (07:03)
[2022-07-09] MEDS: predniSONE 20 MG TABLET 40 MG PO (07:03)
[2022-07-09] MEDS: VENLAFAXINE HCL ER 37.5 MG CAPSULE PO (07:03)
[2022-07-09] MEDS: NON-FORMULARY MEDICATION 1 EACH INH (07:03)
[2022-07-09] MEDS: POTASSIUM CHLORIDE 10 MEQ CAPSULE ER PO (07:03)
[2022-07-09] MEDS: CARBOXYMETHYLCELLULOSE (REFRESH PLUS) TEARS 1 DROP EYE-BOTH ×4 (07:03→20:46)
[2022-07-09] MEDS: METOPROLOL SUCCINATE (XL) 50 MG TAB 25 MG PO (07:03)
[2022-07-09] MEDS: NICOTINE 4 MG GUM BUCCAL ×2 (07:11→17:13)
[2022-07-09] MEDS: OXYCODONE 5 MG TABLET PO (09:41)
--- NOTE | 2022-07-09 13:01 | PC.NURSE ---
TEO : Resident out of facility with family at 1300 for lunch. She will be back when done with lunch.
[2022-07-09] MEDS: SENNOSIDES 1 TAB TABLET PO (20:46)
[2022-07-10] MEDS: OMEPRAZOLE 20 MG CAPSULE DR PO (07:04)
[2022-07-10] MEDS: ASPIRIN 81 MG TABLET EC PO (07:04)
[2022-07-10] MEDS: ALBUTEROL INHALER 2 PUFF IH ×4 (07:04→19:42)
[2022-07-10] MEDS: ACETAMINOPHEN 500 MG TABLET 1000 MG PO ×3 (07:04→19:42)
[2022-07-10] MEDS: VENLAFAXINE HCL ER 37.5 MG CAPSULE PO (07:05)
[2022-07-10] MEDS: NON-FORMULARY MEDICATION 1 EACH INH (07:05)
[2022-07-10] MEDS: METOPROLOL SUCCINATE (XL) 50 MG TAB 25 MG PO (07:05)
[2022-07-10] MEDS: FOLIC ACID 800 MCG PO (07:05)
[2022-07-10] MEDS: CARBOXYMETHYLCELLULOSE (REFRESH PLUS) TEARS 1 DROP EYE-BOTH ×4 (07:05→19:42)
[2022-07-10] MEDS: predniSONE 20 MG TABLET 40 MG PO (07:05)
[2022-07-10] MEDS: FUROSEMIDE 40 MG TABLET 60 MG PO (07:05)
[2022-07-10] MEDS: VENLAFAXINE ER 75 MG CAPSULE PO (07:05)
[2022-07-10] MEDS: NICOTINE 4 MG GUM BUCCAL ×2 (07:06→14:21)
[2022-07-10] MEDS: POTASSIUM CHLORIDE 10 MEQ CAPSULE ER PO (08:29)
[2022-07-10] MEDS: glipiZIDE 2.5 MG ER TAB 5 MG PO (08:29)
[2022-07-10] MEDS: METFORMIN 1,000 MG TABLET 1000 MG PO ×2 (08:29→17:18)
[2022-07-10] MEDS: SENNOSIDES 1 TAB TABLET PO (19:42)
[2022-07-11] MEDS: OMEPRAZOLE 20 MG CAPSULE DR PO (06:38)
[2022-07-11] MEDS: NICOTINE 4 MG GUM BUCCAL ×2 (06:46→17:17)
[2022-07-11] MEDS: ACETAMINOPHEN 500 MG TABLET 1000 MG PO ×3 (07:03→20:16)
[2022-07-11] MEDS: VENLAFAXINE HCL ER 37.5 MG CAPSULE PO (07:04)
[2022-07-11] MEDS: ALBUTEROL INHALER 2 PUFF IH ×4 (07:04→20:16)
[2022-07-11] MEDS: ASPIRIN 81 MG TABLET EC PO (07:04)
[2022-07-11] MEDS: FOLIC ACID 800 MCG PO (07:04)
[2022-07-11] MEDS: CARBOXYMETHYLCELLULOSE (REFRESH PLUS) TEARS 1 DROP EYE-BOTH ×4 (07:04→20:16)
[2022-07-11] MEDS: METOPROLOL SUCCINATE (XL) 50 MG TAB 25 MG PO (07:04)
[2022-07-11] MEDS: NON-FORMULARY MEDICATION 1 EACH INH (07:04)
[2022-07-11] MEDS: VENLAFAXINE ER 75 MG CAPSULE PO (07:04)
[2022-07-11] MEDS: predniSONE 20 MG TABLET 40 MG PO (07:04)
[2022-07-11] MEDS: glipiZIDE 2.5 MG ER TAB 5 MG PO (08:37)
[2022-07-11] MEDS: FUROSEMIDE 40 MG TABLET 60 MG PO (08:37)
[2022-07-11] MEDS: METFORMIN 1,000 MG TABLET 1000 MG PO ×2 (08:37→17:16)
[2022-07-11] MEDS: POTASSIUM CHLORIDE 10 MEQ CAPSULE ER PO (08:38)
[2022-07-11] MEDS: OXYCODONE 5 MG TABLET PO ×2 (09:05→18:51)
--- NOTE | 2022-07-11 10:23 | PC.PHA1 ---
CLOTH MENDER PHARMACIST'S MEDICATION REVIEW: MEDICATION MONITORING:Venlafaxine 112.5 mg daily Glipizide 5 mg daily, metformin 1000 mg bid, furosemide 60 mg daily, potassium 10 meq daily. IRREGULARITY OR COMMENTS:Patient had increase in glipizide and MD note has monitoring plan for next labs in August. Venlafaxine continues to be indicated, based on nursing notes since last review a GDR clinically contraindicated. SUGGESTED COURSE OF ACTION TAKEN: No medication recommendations this review.
--- NOTE | 2022-07-11 11:49 | PC.SPIRITC ---
Tran expressed that the last week has been difficult for her, especially in relation to health challenges. I provided time to talk about her experiences, along with prayer and Holy Communion.
[2022-07-11] MEDS: SENNOSIDES 1 TAB TABLET PO (20:16)
--- NOTE | 2022-07-12 00:57 | PC.NURSE ---
WEEKLY CHARTING WEEK 4: Vital signs reviewed with no concern. Comprehensive and temporary care plan reviewed with no changes made. Currently on venlafaxine 112.5mg with no adverse effect. No Behavior recorded in the past month. Cognition is intact. Able to communicate needs. Visual deficit corrected with glasses. Mild hearing impairment, speaker adjust volume/tone as needed. Self administer medication after nursing set up. health condition is stable.
[2022-07-12] MEDS: OMEPRAZOLE 20 MG CAPSULE DR PO (06:53)
[2022-07-12] MEDS: METFORMIN 1,000 MG TABLET 1000 MG PO ×2 (07:02→17:07)
[2022-07-12] MEDS: VENLAFAXINE ER 75 MG CAPSULE PO (07:02)
[2022-07-12] MEDS: ACETAMINOPHEN 500 MG TABLET 1000 MG PO ×3 (07:02→19:24)
[2022-07-12] MEDS: METOPROLOL SUCCINATE (XL) 50 MG TAB 25 MG PO (07:02)
[2022-07-12] MEDS: glipiZIDE 2.5 MG ER TAB 5 MG PO (07:02)
[2022-07-12] MEDS: FOLIC ACID 800 MCG PO (07:02)
[2022-07-12] MEDS: ASPIRIN 81 MG TABLET EC PO (07:02)
[2022-07-12] MEDS: FUROSEMIDE 40 MG TABLET 60 MG PO (07:02)
[2022-07-12] MEDS: ALBUTEROL INHALER 2 PUFF IH ×4 (07:02→19:25)
[2022-07-12] MEDS: POTASSIUM CHLORIDE 10 MEQ CAPSULE ER PO (07:04)
[2022-07-12] MEDS: VENLAFAXINE HCL ER 37.5 MG CAPSULE PO (07:04)
[2022-07-12] MEDS: CARBOXYMETHYLCELLULOSE (REFRESH PLUS) TEARS 1 DROP EYE-BOTH ×4 (07:04→19:25)
[2022-07-12] MEDS: NON-FORMULARY MEDICATION 1 EACH INH (07:04)
[2022-07-12] MEDS: NICOTINE 4 MG GUM BUCCAL (07:24)
--- NOTE | 2022-07-12 07:48 | PC.NURSE ---
Weekly Charting-Week 4: Comprehensive and temporary care plan reviewed. No changes made. Nothing added to temporary care plan. No changes noted in communication, hearing, vision, or orientation. She does communicate needs. Has mild hearing difficulty? in some environment. No device used. Speak and adjust tone of voice. Vision impairment corrected by glasses. Cognition intact. 07/07 Prednisone started for COPD Exacerbation. Vital signs reviewed,no concerns. Is able to self administer medications. Nurse may leave medications? and check they are taken. Mood/Behavior: No issues the last month. Continues on Effexor 112.5mg daily with no adverse effects noted. Melatonin 3mg @HS PRN and has used occasionally.
[2022-07-12] MEDS: OXYCODONE 5 MG TABLET PO ×2 (09:01→19:25)
--- NOTE | 2022-07-12 11:33 | PC.NURSE ---
Podiatry: Resident seen by lieutenant colonel in house service.
[2022-07-12] MEDS: SENNOSIDES 1 TAB TABLET PO (19:25)
[2022-07-13 07:00] VITALS: BP 129/78; PULSE 98; RESP 20; TEMP 36.4; O2SAT 95; BMI 21.4
[2022-07-13] MEDS: ACETAMINOPHEN 500 MG TABLET 1000 MG PO ×3 (07:04→21:19)
[2022-07-13] MEDS: ALBUTEROL INHALER 2 PUFF IH ×4 (07:04→22:47)
[2022-07-13] MEDS: OXYCODONE 5 MG TABLET PO ×3 (07:04→21:18)
[2022-07-13] MEDS: OMEPRAZOLE 20 MG CAPSULE DR PO (07:04)
[2022-07-13] MEDS: NICOTINE 4 MG GUM BUCCAL ×2 (07:05→17:30)
[2022-07-13] MEDS: VENLAFAXINE ER 75 MG CAPSULE PO (07:23)
[2022-07-13] MEDS: NON-FORMULARY MEDICATION 1 EACH INH (07:23)
[2022-07-13] MEDS: METOPROLOL SUCCINATE (XL) 50 MG TAB 25 MG PO (07:23)
[2022-07-13] MEDS: METFORMIN 1,000 MG TABLET 1000 MG PO ×2 (07:23→21:16)
[2022-07-13] MEDS: FUROSEMIDE 40 MG TABLET 60 MG PO (07:23)
[2022-07-13] MEDS: ASPIRIN 81 MG TABLET EC PO (07:23)
[2022-07-13] MEDS: FOLIC ACID 800 MCG PO (07:23)
[2022-07-13] MEDS: POTASSIUM CHLORIDE 10 MEQ CAPSULE ER PO (07:23)
[2022-07-13] MEDS: glipiZIDE 2.5 MG ER TAB 5 MG PO (07:23)
[2022-07-13] MEDS: CARBOXYMETHYLCELLULOSE (REFRESH PLUS) TEARS 1 DROP EYE-BOTH ×4 (07:24→22:47)
[2022-07-13] MEDS: VENLAFAXINE HCL ER 37.5 MG CAPSULE PO (07:24)
--- NOTE | 2022-07-13 13:25 | PC.NURSE ---
Health status: Staff reported that resident can't breath in dinning room during activities at 1030. Immediately resident was taken to her room with w/c and put on oxygen, vital signs as follows BP 116/82, R 24, Temp 97. O2 sat 98% on 1L, P156. Resident appears to be very anxious. Resident resting in bed, administered Oxycodone 5mg prn for c/o's shoulder pain at 1115, Which was effective upon follow ups. Resident sleeping in bed comfortably with O2 sat been 96% on RA. Resident wants to save her lunch try. Will update the upcoming shift to continues to monitor.
[2022-07-13] MEDS: SENNOSIDES 1 TAB TABLET PO (21:17)
[2022-07-14] MEDS: NICOTINE 4 MG GUM BUCCAL ×2 (07:10→17:22)
[2022-07-14] MEDS: OMEPRAZOLE 20 MG CAPSULE DR PO (07:34)
[2022-07-14] MEDS: ALBUTEROL INHALER 2 PUFF IH ×4 (07:34→20:12)
[2022-07-14] MEDS: ACETAMINOPHEN 500 MG TABLET 1000 MG PO ×3 (07:34→20:12)
[2022-07-14] MEDS: ASPIRIN 81 MG TABLET EC PO (07:34)
[2022-07-14] MEDS: VENLAFAXINE ER 75 MG CAPSULE PO (07:34)
[2022-07-14] MEDS: METOPROLOL SUCCINATE (XL) 50 MG TAB 25 MG PO (07:35)
[2022-07-14] MEDS: NON-FORMULARY MEDICATION 1 EACH INH (07:35)
[2022-07-14] MEDS: VENLAFAXINE HCL ER 37.5 MG CAPSULE PO (07:37)
[2022-07-14] MEDS: CARBOXYMETHYLCELLULOSE (REFRESH PLUS) TEARS 1 DROP EYE-BOTH ×4 (07:37→20:12)
[2022-07-14] MEDS: FUROSEMIDE 40 MG TABLET 60 MG PO (08:03)
[2022-07-14] MEDS: METFORMIN 1,000 MG TABLET 1000 MG PO ×2 (08:03→17:22)
[2022-07-14] MEDS: glipiZIDE 2.5 MG ER TAB 5 MG PO (08:03)
[2022-07-14] MEDS: POTASSIUM CHLORIDE 10 MEQ CAPSULE ER PO (08:03)
[2022-07-14] MEDS: SENNOSIDES 1 TAB TABLET PO (20:12)
[2022-07-15] MEDS: OMEPRAZOLE 20 MG CAPSULE DR PO (06:44)
[2022-07-15] MEDS: NICOTINE 4 MG GUM BUCCAL ×2 (07:10→17:29)
[2022-07-15] MEDS: ACETAMINOPHEN 500 MG TABLET 1000 MG PO ×3 (07:13→19:17)
[2022-07-15] MEDS: ASPIRIN 81 MG TABLET EC PO (07:13)
[2022-07-15] MEDS: NON-FORMULARY MEDICATION 1 EACH INH (07:13)
[2022-07-15] MEDS: VENLAFAXINE ER 75 MG CAPSULE PO (07:13)
[2022-07-15] MEDS: ALBUTEROL INHALER 2 PUFF IH ×4 (07:13→19:17)
[2022-07-15] MEDS: FOLIC ACID 800 MCG PO (07:13)
[2022-07-15] MEDS: METOPROLOL SUCCINATE (XL) 50 MG TAB 25 MG PO (07:13)
[2022-07-15] MEDS: CARBOXYMETHYLCELLULOSE (REFRESH PLUS) TEARS 1 DROP EYE-BOTH ×4 (07:14→19:17)
[2022-07-15] MEDS: VENLAFAXINE HCL ER 37.5 MG CAPSULE PO (07:14)
[2022-07-15] MEDS: POTASSIUM CHLORIDE 10 MEQ CAPSULE ER PO (07:59)
[2022-07-15] MEDS: glipiZIDE 2.5 MG ER TAB 5 MG PO (07:59)
[2022-07-15] MEDS: METFORMIN 1,000 MG TABLET 1000 MG PO ×2 (07:59→17:29)
[2022-07-15] MEDS: FUROSEMIDE 40 MG TABLET 60 MG PO (07:59)
[2022-07-15] MEDS: SENNOSIDES 1 TAB TABLET PO (19:17)
[2022-07-15] MEDS: OXYCODONE 5 MG TABLET PO (19:18)
[2022-07-16] MEDS: OMEPRAZOLE 20 MG CAPSULE DR PO (06:58)
[2022-07-16] MEDS: ACETAMINOPHEN 500 MG TABLET 1000 MG PO ×3 (07:02→19:17)
[2022-07-16] MEDS: CARBOXYMETHYLCELLULOSE (REFRESH PLUS) TEARS 1 DROP EYE-BOTH ×4 (07:03→19:17)
[2022-07-16] MEDS: ALBUTEROL INHALER 2 PUFF IH ×4 (07:03→19:17)
[2022-07-16] MEDS: FOLIC ACID 800 MCG PO (07:03)
[2022-07-16] MEDS: VENLAFAXINE ER 75 MG CAPSULE PO (07:03)
[2022-07-16] MEDS: NON-FORMULARY MEDICATION 1 EACH INH (07:03)
[2022-07-16] MEDS: VENLAFAXINE HCL ER 37.5 MG CAPSULE PO (07:03)
[2022-07-16] MEDS: glipiZIDE 2.5 MG ER TAB 5 MG PO (07:03)
[2022-07-16] MEDS: ASPIRIN 81 MG TABLET EC PO (07:03)
[2022-07-16] MEDS: METOPROLOL SUCCINATE (XL) 50 MG TAB 25 MG PO (07:04)
[2022-07-16] MEDS: OXYCODONE 5 MG TABLET PO (07:40)
[2022-07-16] MEDS: NICOTINE 4 MG GUM BUCCAL ×2 (07:40→17:05)
[2022-07-16] MEDS: FUROSEMIDE 40 MG TABLET 60 MG PO (07:41)
[2022-07-16] MEDS: POTASSIUM CHLORIDE 10 MEQ CAPSULE ER PO (07:41)
[2022-07-16] MEDS: METFORMIN 1,000 MG TABLET 1000 MG PO ×2 (07:41→17:05)
[2022-07-16] MEDS: SENNOSIDES 1 TAB TABLET PO (19:18)
[2022-07-17] MEDS: OMEPRAZOLE 20 MG CAPSULE DR PO (07:14)
[2022-07-17] MEDS: ASPIRIN 81 MG TABLET EC PO (07:14)
[2022-07-17] MEDS: ALBUTEROL INHALER 2 PUFF IH ×4 (07:14→20:50)
[2022-07-17] MEDS: ACETAMINOPHEN 500 MG TABLET 1000 MG PO ×3 (07:14→20:50)
[2022-07-17] MEDS: METOPROLOL SUCCINATE (XL) 50 MG TAB 25 MG PO (07:15)
[2022-07-17] MEDS: FOLIC ACID 800 MCG PO (07:15)
[2022-07-17] MEDS: VENLAFAXINE ER 75 MG CAPSULE PO (07:15)
[2022-07-17] MEDS: NON-FORMULARY MEDICATION 1 EACH INH (07:15)
[2022-07-17] MEDS: VENLAFAXINE HCL ER 37.5 MG CAPSULE PO (07:16)
[2022-07-17] MEDS: CARBOXYMETHYLCELLULOSE (REFRESH PLUS) TEARS 1 DROP EYE-BOTH ×4 (07:16→20:50)
[2022-07-17] MEDS: NICOTINE 4 MG GUM BUCCAL ×2 (07:20→17:17)
[2022-07-17] MEDS: FUROSEMIDE 40 MG TABLET 60 MG PO (08:28)
[2022-07-17] MEDS: METFORMIN 1,000 MG TABLET 1000 MG PO ×2 (08:28→17:16)
[2022-07-17] MEDS: glipiZIDE 2.5 MG ER TAB 5 MG PO (08:28)
[2022-07-17] MEDS: POTASSIUM CHLORIDE 10 MEQ CAPSULE ER PO (08:29)
[2022-07-17] MEDS: OXYCODONE 5 MG TABLET PO ×2 (08:52→21:18)
[2022-07-17] MEDS: SENNOSIDES 1 TAB TABLET PO (20:50)
--- NOTE | 2022-07-17 21:30 | PC.NURSE ---
Pain: Resident C/O 10/10 pain to right shoulder. Ice pack and warm blankets applied, rest encouraged, repositioning performed as tolerated, and Oxycodone administered at 2117. In a state of lamentation and moaning, resident complains chronic pain to R-shoulder is getting worse, for some time now, despite pain intervention implementation. Resident requesting to have something stronger than Oxycodone. This author reiterated pain concern or request would be relayed to RECREATION COUNSELOR.
[2022-07-18] MEDS: ACETAMINOPHEN 500 MG TABLET 1000 MG PO ×3 (07:06→20:18)
[2022-07-18] MEDS: ALBUTEROL INHALER 2 PUFF IH ×4 (07:06→20:18)
[2022-07-18] MEDS: OMEPRAZOLE 20 MG CAPSULE DR PO (07:06)
[2022-07-18] MEDS: ASPIRIN 81 MG TABLET EC PO (07:07)
[2022-07-18] MEDS: VENLAFAXINE ER 75 MG CAPSULE PO (07:07)
[2022-07-18] MEDS: NON-FORMULARY MEDICATION 1 EACH INH (07:07)
[2022-07-18] MEDS: FOLIC ACID 800 MCG PO (07:07)
[2022-07-18] MEDS: METOPROLOL SUCCINATE (XL) 50 MG TAB 25 MG PO (07:07)
[2022-07-18] MEDS: VENLAFAXINE HCL ER 37.5 MG CAPSULE PO (07:08)
[2022-07-18] MEDS: CARBOXYMETHYLCELLULOSE (REFRESH PLUS) TEARS 1 DROP EYE-BOTH ×4 (07:08→20:18)
[2022-07-18] MEDS: NICOTINE 4 MG GUM BUCCAL ×2 (07:14→17:14)
[2022-07-18] MEDS: POTASSIUM CHLORIDE 10 MEQ CAPSULE ER PO (08:24)
[2022-07-18] MEDS: FUROSEMIDE 40 MG TABLET 60 MG PO (08:53)
[2022-07-18] MEDS: METFORMIN 1,000 MG TABLET 1000 MG PO ×2 (08:53→17:14)
[2022-07-18] MEDS: glipiZIDE 2.5 MG ER TAB 5 MG PO (08:53)
[2022-07-18] MEDS: OXYCODONE 5 MG TABLET PO (09:10)
--- NOTE | 2022-07-18 12:34 | PC.NURSE ---
Order note: Resident seen by YULIYA Briones today. New order to increase Oxycodone order to 7.5 mg po Q6H PRN.
--- NOTE | 2022-07-18 12:37 | PC.NURSE ---
Family update: [employer] called son Cory and updated Cory regarding resident's new order to increase Oxycodone.
[2022-07-18] MEDS: SENNOSIDES 1 TAB TABLET PO (20:18)
[2022-07-19] MEDS: OMEPRAZOLE 20 MG CAPSULE DR PO (06:49)
[2022-07-19] MEDS: NICOTINE 4 MG GUM BUCCAL ×2 (07:00→17:18)
[2022-07-19] MEDS: glipiZIDE 2.5 MG ER TAB 5 MG PO (07:29)
[2022-07-19] MEDS: VENLAFAXINE ER 75 MG CAPSULE PO (07:29)
[2022-07-19] MEDS: METFORMIN 1,000 MG TABLET 1000 MG PO ×2 (07:29→17:18)
[2022-07-19] MEDS: ASPIRIN 81 MG TABLET EC PO (07:29)
[2022-07-19] MEDS: ALBUTEROL INHALER 2 PUFF IH ×4 (07:29→19:21)
[2022-07-19] MEDS: FUROSEMIDE 40 MG TABLET 60 MG PO (07:29)
[2022-07-19] MEDS: ACETAMINOPHEN 500 MG TABLET 1000 MG PO ×3 (07:29→19:21)
[2022-07-19] MEDS: FOLIC ACID 800 MCG PO (07:30)
[2022-07-19] MEDS: METOPROLOL SUCCINATE (XL) 50 MG TAB 25 MG PO (07:30)
[2022-07-19] MEDS: VENLAFAXINE HCL ER 37.5 MG CAPSULE PO (07:31)
[2022-07-19] MEDS: POTASSIUM CHLORIDE 10 MEQ CAPSULE ER PO (07:31)
[2022-07-19] MEDS: CARBOXYMETHYLCELLULOSE (REFRESH PLUS) TEARS 1 DROP EYE-BOTH ×4 (07:31→19:21)
[2022-07-19] MEDS: NON-FORMULARY MEDICATION 1 EACH INH (07:31)
[2022-07-19] MEDS: SENNOSIDES 1 TAB TABLET PO (19:21)
[2022-07-20] MEDS: OMEPRAZOLE 20 MG CAPSULE DR PO (06:57)
[2022-07-20] MEDS: VENLAFAXINE HCL ER 37.5 MG CAPSULE PO (07:00)
[2022-07-20] MEDS: FOLIC ACID 800 MCG PO (07:00)
[2022-07-20] MEDS: CARBOXYMETHYLCELLULOSE (REFRESH PLUS) TEARS 1 DROP EYE-BOTH ×4 (07:00→19:32)
[2022-07-20] MEDS: NON-FORMULARY MEDICATION 1 EACH INH (07:00)
[2022-07-20] MEDS: VENLAFAXINE ER 75 MG CAPSULE PO (07:01)
[2022-07-20] MEDS: METOPROLOL SUCCINATE (XL) 50 MG TAB 25 MG PO (07:01)
[2022-07-20] MEDS: ACETAMINOPHEN 500 MG TABLET 1000 MG PO ×3 (07:01→19:32)
[2022-07-20] MEDS: ALBUTEROL INHALER 2 PUFF IH ×4 (07:01→19:32)
[2022-07-20] MEDS: ASPIRIN 81 MG TABLET EC PO (07:01)
[2022-07-20] MEDS: NICOTINE 4 MG GUM BUCCAL ×2 (07:10→17:17)
[2022-07-20] MEDS: METFORMIN 1,000 MG TABLET 1000 MG PO ×2 (08:01→17:16)
[2022-07-20] MEDS: POTASSIUM CHLORIDE 10 MEQ CAPSULE ER PO (08:01)
[2022-07-20] MEDS: FUROSEMIDE 40 MG TABLET 60 MG PO (08:01)
[2022-07-20] MEDS: glipiZIDE 2.5 MG ER TAB 5 MG PO (08:01)
--- NOTE | 2022-07-20 08:29 | PC.SPIRITC ---
Tran was tearful at times, talked about being in a lot of pain due to her back the past few days and being scared both of the pain coming back and not ending. I provided time to process her experience, comfort, and support. I will continue to follow up.
[2022-07-20] MEDS: NON-FORMULARY MEDICATION 1 EACH SUBCUT (11:07)
[2022-07-20 13:38] VITALS: BP 115/72; PULSE 98; RESP 20; TEMP 36.4; O2SAT 95; BMI 20.7
[2022-07-20] MEDS: SENNOSIDES 1 TAB TABLET PO (19:32)
[2022-07-21] MEDS: OXYCODONE 5 MG TABLET 7.5 MG PO ×2 (02:33→09:30)
--- NOTE | 2022-07-21 03:07 | PC.NURSE ---
Pain: In moaning, groaning, weeping, and unable to sleepy, resident reports 10/10 excruciating pain to right shoulder. Resident describes pain as, the worse pain I have ever had, worse than when I had my babies. Warm blankets applied to affected area, reassurance provided, one-on-one was necessary to keep resident calm as she appeared to be in a state of anxiousness and fear. PRN Oxycodone 7.5 mg given. Additionally, resident C/O of nausea due to the pain, but denies SOB, and chest pain or discomfort. During pain follow-up assessment, resident was observed sleeping comfortably. Floor nurse obtained Vital signs. Will continue to monitor.
[2022-07-21] MEDS: OMEPRAZOLE 20 MG CAPSULE DR PO (07:42)
[2022-07-21] MEDS: ALBUTEROL INHALER 2 PUFF IH ×4 (07:43→20:45)
[2022-07-21] MEDS: ASPIRIN 81 MG TABLET EC PO (07:43)
[2022-07-21] MEDS: ACETAMINOPHEN 500 MG TABLET 1000 MG PO ×3 (07:43→20:45)
[2022-07-21] MEDS: VENLAFAXINE ER 75 MG CAPSULE PO (07:44)
[2022-07-21] MEDS: VENLAFAXINE HCL ER 37.5 MG CAPSULE PO (07:44)
[2022-07-21] MEDS: CARBOXYMETHYLCELLULOSE (REFRESH PLUS) TEARS 1 DROP EYE-BOTH ×4 (07:44→20:46)
[2022-07-21] MEDS: POTASSIUM CHLORIDE 10 MEQ CAPSULE ER PO (07:44)
[2022-07-21] MEDS: NON-FORMULARY MEDICATION 1 EACH INH (07:44)
[2022-07-21] MEDS: METFORMIN 1,000 MG TABLET 1000 MG PO ×2 (07:44→17:35)
[2022-07-21] MEDS: FUROSEMIDE 40 MG TABLET 60 MG PO (07:44)
[2022-07-21] MEDS: glipiZIDE 2.5 MG ER TAB 5 MG PO (07:44)
[2022-07-21] MEDS: METOPROLOL SUCCINATE (XL) 50 MG TAB 25 MG PO (07:44)
[2022-07-21] MEDS: SENNOSIDES 1 TAB TABLET PO (20:46)
--- NOTE | 2022-07-22 02:36 | LTC.FALL ---
[facility] Fall Note: o Fall Date:07/22/2022 o Fall Time:0140 o What happened? Resident said she slides out of her recliner o Who found the resident and who responded? Resident called and reported to the SABRINA o What was the resident doing? Getting out the recliner to bed. o How the resident was found (knees, left side, arm under them), any hazards (cords, objects, nonskid slippers) brakes on? Proper equipment? Resident reported to staff that she slided out of her recliner but did not get hurt. o Did you assess for head trauma, spinal injuries, skeletal injuries, neurological changes and status, and head and neck pain? What did you find? No injuries. Resident reaffirmed , she did not get hurt. o Did you assess ROM in shoulders, elbows, hips, knees, any other affected areas, unless there is suspected spinal injury. Yes, it was done, resident did not complain of pain. o Did you Assess for pain or discomfort? yes , no concerns. o What are the injuries and how are they being treated? No injuries o Did you call the MD or put a note in the LINE UP MACHINE OPERATOR book? yes, done o Enter vital signs. 96.5 16 97 121/65 92% RA o Did you notify family? will be done in the morning. o What was the root cause of the fall? Why did it happen? Resident did not get the leg extension part of the recliner in, before get out ; it did cause an imbalance . o Create an IMMEDIATE INTERVENTION to ensure that this won't immediately happen again. (Put in temporary care plan too) Done o Complete Safety report and huddle (now one form) o If resident is seen in ED or fractured something, note that you started a [facility] Report process. Instructions are at the [facility] nurse's desk in a red binder labeled [facility] report. n/a
[2022-07-22] MEDS: OMEPRAZOLE 20 MG CAPSULE DR PO (06:57)
[2022-07-22] MEDS: NICOTINE 4 MG GUM BUCCAL ×2 (06:57→19:12)
[2022-07-22] MEDS: ACETAMINOPHEN 500 MG TABLET 1000 MG PO ×3 (07:27→19:12)
[2022-07-22] MEDS: FUROSEMIDE 40 MG TABLET 60 MG PO (07:27)
[2022-07-22] MEDS: METFORMIN 1,000 MG TABLET 1000 MG PO ×2 (07:27→19:12)
[2022-07-22] MEDS: ASPIRIN 81 MG TABLET EC PO (07:27)
[2022-07-22] MEDS: VENLAFAXINE ER 75 MG CAPSULE PO (07:27)
[2022-07-22] MEDS: METOPROLOL SUCCINATE (XL) 50 MG TAB 25 MG PO (07:27)
[2022-07-22] MEDS: ALBUTEROL INHALER 2 PUFF IH ×4 (07:27→19:12)
[2022-07-22] MEDS: FOLIC ACID 800 MCG PO (07:27)
[2022-07-22] MEDS: POTASSIUM CHLORIDE 10 MEQ CAPSULE ER PO (07:27)
[2022-07-22] MEDS: glipiZIDE 2.5 MG ER TAB 5 MG PO (07:27)
[2022-07-22] MEDS: NON-FORMULARY MEDICATION 1 EACH INH (07:27)
[2022-07-22] MEDS: CARBOXYMETHYLCELLULOSE (REFRESH PLUS) TEARS 1 DROP EYE-BOTH ×4 (07:28→19:12)
[2022-07-22] MEDS: VENLAFAXINE HCL ER 37.5 MG CAPSULE PO (07:28)
[2022-07-22 09:26] VITALS: BP 116/60; PULSE 87; RESP 20; TEMP 36.3; O2SAT 97
--- NOTE | 2022-07-22 10:07 | PC.NURSE ---
Fall followup note @ 0940: VS B/P 116/60, P 867, R 20, T 97.2, O2 sat 97% on RA. No complains of pain or any discomfort noted r/t fall. Resident remains alert & oriented per baseline. She remains able to move all four extremities per baseline with no indications of pain r/t fall. Hand grasps remain equal bilaterally. MALISSA.
--- NOTE | 2022-07-22 11:05 | PC.NURSE ---
Family Update: Hi Lift Operator updated son of resident's fall overnight.
[2022-07-22 13:26] VITALS: BP 113/65; PULSE 95; RESP 18; TEMP 36.4; O2SAT 93
--- NOTE | 2022-07-22 13:39 | PC.NURSE ---
Fall followup note at 1340: VS B/P 113/65, P 95, R 18, T 97.5, O2 sat 93% on RA. No complaints of pain and nonverbal indication of pain/discomfort noted this time. Resident sleeping comfortably in bed at this time. Resident oriented per baseline. She is able to move all four extremities per baseline no indications of pain r/t recent fall. Hand grasps remain equal bilaterally. MALISSA.
[2022-07-22 17:00] VITALS: BP 128/81; PULSE 90; RESP 18; TEMP 37.2; O2SAT 97
--- NOTE | 2022-07-22 17:00 | PC.NURSE ---
Fall Follow-up:? Peripheral zhang full bilaterally. PERRLA intact bilaterally. Continue to complain of chronic pain to right shoulder, applying ice pack and encouraging rest seem to alleviate pain, as she reported. Hand grasps strength equal and strong?bilaterally. Alert and oriented X 3. No signs and symptoms of intracranial pressure including headache, blurred vision, confusion, or high blood pressure noted so far. Vital signs are normal within residents ranges - refer to 'WORKLIST' for documented values. No new concerns as related to recent fall incident noted or reported at this time. Will continue to monitor.
[2022-07-22] MEDS: SENNOSIDES 1 TAB TABLET PO (19:12)
[2022-07-22 21:00] VITALS: BP 130/79; PULSE 90; RESP 18; TEMP 37.2; O2SAT 97
--- NOTE | 2022-07-22 22:04 | PC.NURSE ---
Fall Follow-up: Vital signs are normal within residents ranges - refer to 'WORKLIST' for documented values. Resident is sleeping at this. No new concerns as related to recent fall incident noted or reported at this time. Will continue to monitor.
[2022-07-23 01:00] VITALS: BP 134/76; PULSE 86; RESP 18; TEMP 36.4; O2SAT 98
[2022-07-23 05:00] VITALS: BP 136/81; PULSE 82; RESP 16; TEMP 36.6; O2SAT 97
[2022-07-23] MEDS: FOLIC ACID 800 MCG PO (07:03)
[2022-07-23] MEDS: OMEPRAZOLE 20 MG CAPSULE DR PO (07:03)
[2022-07-23] MEDS: FUROSEMIDE 40 MG TABLET 60 MG PO (07:03)
[2022-07-23] MEDS: METOPROLOL SUCCINATE (XL) 50 MG TAB 25 MG PO (07:03)
[2022-07-23] MEDS: ACETAMINOPHEN 500 MG TABLET 1000 MG PO ×3 (07:03→19:07)
[2022-07-23] MEDS: ALBUTEROL INHALER 2 PUFF IH ×4 (07:03→19:07)
[2022-07-23] MEDS: ASPIRIN 81 MG TABLET EC PO (07:03)
[2022-07-23] MEDS: glipiZIDE 2.5 MG ER TAB 5 MG PO (07:03)
[2022-07-23] MEDS: NON-FORMULARY MEDICATION 1 EACH INH (07:03)
[2022-07-23] MEDS: METFORMIN 1,000 MG TABLET 1000 MG PO ×2 (07:03→17:10)
[2022-07-23] MEDS: POTASSIUM CHLORIDE 10 MEQ CAPSULE ER PO (07:03)
[2022-07-23] MEDS: VENLAFAXINE ER 75 MG CAPSULE PO (07:03)
[2022-07-23] MEDS: VENLAFAXINE HCL ER 37.5 MG CAPSULE PO (07:04)
[2022-07-23] MEDS: CARBOXYMETHYLCELLULOSE (REFRESH PLUS) TEARS 1 DROP EYE-BOTH ×4 (07:04→19:07)
[2022-07-23 09:00] VITALS: BP 142/84; PULSE 112; RESP 20; TEMP 36.2; O2SAT 96
--- NOTE | 2022-07-23 11:04 | PC.NURSE ---
Fall followup note: Resident has had no complaints of pain and nonverbal indication of pain or any discomfort noted r/t recent fall. Resident remains alert & oriented per baseline. She remains able to move all four extremities per baseline. Hand grasps remain equal bilaterally. PERRLA. Will continues to monitor. VS: 142/84, R 20, T 97.2, P 112, O2 sat 96% on RA. Will continues to monitor.
[2022-07-23 13:00] VITALS: BP 105/71; PULSE 67; RESP 19; TEMP 36.1; O2SAT 96
--- NOTE | 2022-07-23 13:47 | PC.NURSE ---
Fall followup note: VS : Bp 105/71, P 67, R 19, T 96.9, O2 sat 93% on RA. Resident continues to not complaints of pain and nonverbal indication of pain/ discomfort noted or reported r/t recent fall. Resident remains alert & oriented per baseline. she remains able to move all four extremities per baseline. Hand grasps remain equal bilaterally. Resident sleeping comfortably in bed at this time. Will continues to monitor.
--- NOTE | 2022-07-23 15:00 | PC.NURSE ---
FALL FOLLOW-UP:??Peripheral zhang full bilaterally. PERRLA intact bilaterally. Hand grasps strength equal and strong?bilaterally. Alert and oriented X 3. No signs and symptoms of intracranial pressure including vomiting, headache, blurred vision, confusion, lower heart rate, or high blood pressure noted so far. Resident is relaxing in her recliner and working on Puzzles. Vital signs are within resident's normal ranges- refer to 'WORKLIST' for documented values. No new concerns as related to recent fall incident noted or reported at this time. Will continue to monitor.
[2022-07-23 17:00] VITALS: BP 104/69; PULSE 67; RESP 20; TEMP 36.6; O2SAT 98
[2022-07-23] MEDS: NICOTINE 4 MG GUM BUCCAL (17:10)
[2022-07-23] MEDS: SENNOSIDES 1 TAB TABLET PO (19:07)
[2022-07-23 21:00] VITALS: BP 110/68; PULSE 80; RESP 20; TEMP 37.2; O2SAT 95
--- NOTE | 2022-07-23 21:59 | PC.NURSE ---
FALL FOLLOW-UP:??Peripheral zhang full bilaterally. PERRLA intact bilaterally. Hand grasps strength equal and strong?bilaterally. Alert and oriented to self, place, time, and situation. No signs and symptoms of intracranial pressure including vomiting, headache, blurred vision, confusion, lower heart rate, or high blood pressure noted so far. Resident ambulated with a walker to the dinning room for supper - consumed 100% of her meal. Vital signs are within resident's normal ranges- refer to 'WORKLIST' for documented values. No new concerns as related to recent fall incident noted or reported at this time. Will continue to monitor.
[2022-07-24 00:16] VITALS: BP 122/82; PULSE 101; RESP 16; TEMP 36.6; O2SAT 98
[2022-07-24 05:00] VITALS: BP 114/68; PULSE 102; RESP 16; TEMP 36.4; O2SAT 96
--- NOTE | 2022-07-24 05:48 | PC.NURSE ---
FALL FOLLOW UP Resident night went well, she did not complain of any discomfort related to fall. Neuro intact, vitals are normal except pulse , slightly elevated.
[2022-07-24] MEDS: ALBUTEROL INHALER 2 PUFF IH ×4 (07:01→19:40)
[2022-07-24] MEDS: ASPIRIN 81 MG TABLET EC PO (07:01)
[2022-07-24] MEDS: ACETAMINOPHEN 500 MG TABLET 1000 MG PO ×3 (07:01→19:40)
[2022-07-24] MEDS: OMEPRAZOLE 20 MG CAPSULE DR PO (07:01)
[2022-07-24] MEDS: METFORMIN 1,000 MG TABLET 1000 MG PO ×2 (07:02→16:42)
[2022-07-24] MEDS: glipiZIDE 2.5 MG ER TAB 5 MG PO (07:02)
[2022-07-24] MEDS: METOPROLOL SUCCINATE (XL) 50 MG TAB 25 MG PO (07:02)
[2022-07-24] MEDS: VENLAFAXINE ER 75 MG CAPSULE PO (07:02)
[2022-07-24] MEDS: FUROSEMIDE 40 MG TABLET 60 MG PO (07:02)
[2022-07-24] MEDS: POTASSIUM CHLORIDE 10 MEQ CAPSULE ER PO (07:03)
[2022-07-24] MEDS: FOLIC ACID 800 MCG PO (07:03)
[2022-07-24] MEDS: NON-FORMULARY MEDICATION 1 EACH INH (07:03)
[2022-07-24] MEDS: CARBOXYMETHYLCELLULOSE (REFRESH PLUS) TEARS 1 DROP EYE-BOTH ×4 (07:04→19:40)
[2022-07-24] MEDS: VENLAFAXINE HCL ER 37.5 MG CAPSULE PO (07:04)
[2022-07-24 09:00] VITALS: BP 121/71; PULSE 184; RESP 18; TEMP 36; O2SAT 96
--- NOTE | 2022-07-24 11:38 | PC.NURSE ---
Return: Back from outing with son. Resident wants to rest and not disturb as she has lunch already.
--- NOTE | 2022-07-24 13:49 | PC.NURSE ---
Fall followup: Residents pulserate was elevated today around 174. She was anxious because she was going out with her son. BP was stable. Sent her out with oxygen on. She was back within 1 hour and she later told me she didn't feel well and wanted to get back to the cooler facility. Her pulserate is 112 at this time.
[2022-07-24 15:56] VITALS: BP 120/68; PULSE 98; RESP 20; TEMP 36.7; O2SAT 95
[2022-07-24] MEDS: NICOTINE 4 MG GUM BUCCAL (16:42)
--- NOTE | 2022-07-24 17:00 | PC.NURSE ---
F/F:??Peripheral zhang full bilaterally. PERRLA intact bilaterally.? Hand grasps strength equal and strong?bilaterally. Alert and oriented X 3. No signs and symptoms of intracranial pressure including vomiting, headache, blurred vision, confusion, lower heart rate, or high blood pressure noted so far. Resident did not participate in her favorite activity, BINGO due to tiredness after outing with son, she indicated . Vital signs are within resident's normal ranges- refer to 'WORKLIST' for documented values. No new concerns as related to recent fall incident noted or reported at this time. Will continue to monitor.
[2022-07-24] MEDS: SENNOSIDES 1 TAB TABLET PO (19:40)
[2022-07-24 20:38] VITALS: BP 118/68; PULSE 99; RESP 20; TEMP 37.1; O2SAT 95
--- NOTE | 2022-07-24 21:00 | PC.NURSE ---
F/F:?Vital signs are normal within residents ranges - refer to 'WORKLIST' for documented values. Resident is sleeping at this. No new concerns as related to recent fall incident noted or reported at this time. Will continue to monitor.
[2022-07-25 01:00] VITALS: BP 109/72; PULSE 113; RESP 18; TEMP 36.4; O2SAT 96
--- NOTE | 2022-07-25 01:08 | PC.NURSE ---
FALL F/U; Resident sleep good. No complain of pain. Neuro ROM and VSS within normal limit, except HR slightly elevated 113.
[2022-07-25] MEDS: OMEPRAZOLE 20 MG CAPSULE DR PO (06:44)
[2022-07-25] MEDS: ACETAMINOPHEN 500 MG TABLET 1000 MG PO ×3 (07:31→19:35)
[2022-07-25] MEDS: METOPROLOL SUCCINATE (XL) 50 MG TAB 25 MG PO (07:31)
[2022-07-25] MEDS: glipiZIDE 2.5 MG ER TAB 5 MG PO (07:31)
[2022-07-25] MEDS: VENLAFAXINE ER 75 MG CAPSULE PO (07:31)
[2022-07-25] MEDS: FOLIC ACID 800 MCG PO (07:31)
[2022-07-25] MEDS: ASPIRIN 81 MG TABLET EC PO (07:31)
[2022-07-25] MEDS: ALBUTEROL INHALER 2 PUFF IH ×4 (07:31→19:35)
[2022-07-25] MEDS: NON-FORMULARY MEDICATION 1 EACH INH (07:31)
[2022-07-25] MEDS: CARBOXYMETHYLCELLULOSE (REFRESH PLUS) TEARS 1 DROP EYE-BOTH ×4 (07:32→19:35)
[2022-07-25] MEDS: VENLAFAXINE HCL ER 37.5 MG CAPSULE PO (07:32)
[2022-07-25] MEDS: NICOTINE 4 MG GUM BUCCAL ×2 (07:33→17:01)
[2022-07-25] MEDS: POTASSIUM CHLORIDE 10 MEQ CAPSULE ER PO (08:37)
[2022-07-25] MEDS: FUROSEMIDE 40 MG TABLET 60 MG PO (08:37)
[2022-07-25] MEDS: METFORMIN 1,000 MG TABLET 1000 MG PO ×2 (08:37→17:01)
--- NOTE | 2022-07-25 12:38 | PC.NURSE ---
Status/Order: Anselmo DWYER here, updated family would like an update of her health status. Order: Clean catch UA, CBC,BMP on 07/26.
[2022-07-25 14:35] LABS: Appearance Urine Clear (Clear); Bilirubin Urine Negative (Negative); Blood Urine Negative (Negative); Color Urine Yellow (Yellow); Glucose Urine Negative (Negative); Ketones Urine Negative (Negative); Leukocyte Esterase Urine Negative (Negative); Nitrite Urine Negative (Negative); Protein Urine Negative (Negative); Specific Gravity Urine <= 1.005 (1.000-1.030); Urobilinogen Urine 0.2 (0.2-1.0); pH Urine 5.5 (5.0-8.5)
[2022-07-25 14:46] LABS: RBC Urine 0-2 (0-2); Squamous Epithelial Cell Urine Few (None-Few); WBC Urine 0-2 (0-5)
[2022-07-25] MEDS: SENNOSIDES 1 TAB TABLET PO (19:35)
--- NOTE | 2022-07-25 21:49 | PC.NURSE ---
U/A results: U/A results = negative.
--- NOTE | 2022-07-26 02:39 | PC.NURSE ---
Weekly Charting week 1: Vital signs reviewed with no concerns. Comprehensive and temporary care reviewed. Temporary care added Fall on 07/22/22 from the recliner. Comprehensive care plan updated. Has chronic right shoulder pain. Receives acetaminophen 1000mg TID and oxycodone 5mg Q6 hours PRN for pain management which is noted to be effective. PRN oxycodone utilized x1 in the last month. Independent with dressing, grooming, and oral care. Staff provide assist of 1 as needed. Assist of 1 with weekly bath. Eats independently. Reports difficulty chewing with some foods. staff to cut food in bite size. Receives regular diet with regular textures and thin liquids.
[2022-07-26] MEDS: OMEPRAZOLE 20 MG CAPSULE DR PO (06:31)
[2022-07-26] MEDS: FUROSEMIDE 40 MG TABLET 60 MG PO (07:21)
[2022-07-26] MEDS: FOLIC ACID 800 MCG PO (07:21)
[2022-07-26] MEDS: ALBUTEROL INHALER 2 PUFF IH ×4 (07:21→19:19)
[2022-07-26] MEDS: ACETAMINOPHEN 500 MG TABLET 1000 MG PO ×3 (07:21→19:19)
[2022-07-26] MEDS: ASPIRIN 81 MG TABLET EC PO (07:21)
[2022-07-26] MEDS: NON-FORMULARY MEDICATION 1 EACH INH (07:21)
[2022-07-26] MEDS: VENLAFAXINE ER 75 MG CAPSULE PO (07:21)
[2022-07-26] MEDS: glipiZIDE 2.5 MG ER TAB 5 MG PO (07:21)
[2022-07-26] MEDS: METFORMIN 1,000 MG TABLET 1000 MG PO ×2 (07:21→17:38)
[2022-07-26] MEDS: POTASSIUM CHLORIDE 10 MEQ CAPSULE ER PO (07:21)
[2022-07-26] MEDS: METOPROLOL SUCCINATE (XL) 50 MG TAB 25 MG PO (07:21)
[2022-07-26] MEDS: VENLAFAXINE HCL ER 37.5 MG CAPSULE PO (07:22)
[2022-07-26] MEDS: CARBOXYMETHYLCELLULOSE (REFRESH PLUS) TEARS 1 DROP EYE-BOTH ×4 (07:22→19:19)
--- NOTE | 2022-07-26 07:29 | PC.NURSE ---
Weekly Charting, Week? 1-ADL's: Comprehensive and temporary care plan reviewed. No changes made & nothing added to temporary care plan. Resident is independent with dressing, grooming, oral cares and feeding. Will ask for assist as needed. Needs supervision of one with bathing. Is on regular diet per her request. No problems with chewing/swallowing reported. Receives nutritional supplements which she provides her own. Occasionally will ask.Vital signs reviewed, no concerns. Pain:? Has chronic (R) shoulder pain controlled with Tylenol 1000mg TID. 07/18 Increased Oxycodone to 7.5mg Q6H PRN & has used occasionally with relief. Is able to verbalize need for pain.
[2022-07-26] MEDS: NICOTINE 4 MG GUM BUCCAL ×2 (07:32→17:38)
[2022-07-26 07:37] LABS: Basophils Absolute Auto 0.05 K/uL (0.00-0.30); Basophils Percent Auto 0.7 % (0.0-3.0); Eosinophils Absolute Auto 0.24 K/uL (0.00-0.50); Eosinophils Percent Auto 3.2 % (0.0-7.0); Hematocrit 32.8 % (33.0-51.0); Hemoglobin* 10.5 gm/dL (12.0-16.0); Immature Granulocytes Abs Auto 0.05 K/uL (0.00-0.30); Immature Granulocytes Pct Auto 0.7 %; Lymphocytes Percent Auto 26.5 % (20-44); Mean Corpuscular HGB Conc 32 gm/dL (32-36); Mean Corpuscular Hemoglobin 27 pg (26-34); Mean Corpuscular Volume 86 fL (80-100); Monocytes Percent Auto 16.7 % (0.0-11.0); Neutrophils Absolute Auto 3.95 K/uL (1.7-7.0); Neutrophils Percent Auto 52.2 % (42.0-72.0); Platelet Count* 631 K/uL (140-440); RDW Coefficient of Variation % 22.3 % (11.5-15.5); Red Blood Count 3.83 m/uL (4.00-5.20); White Blood Count* 7.55 K/uL (4.50-11.00)
[2022-07-26 07:40] LABS: Slide Review Reflex No
[2022-07-26 07:49] LABS: Chloride* 102 mmol/L (96-114); Potassium* 3.7 mmol/L (3.6-5.1); Sodium* 134 mmol/L (135-149)
[2022-07-26 07:52] LABS: Blood Urea Nitrogen* 10 mg/dL (7-30); Carbon Dioxide* 20 mmol/L (20-32); Creatinine* 0.7 mg/dL (0.5-1.5); Est. Creatinine Clearance* 29.54; Estimated Glomerular Filt Rate 85 ml/min; Glucose* 140 mg/dL (60-115)
[2022-07-26 07:53] LABS: Calcium* 8.5 mg/dL (8.4-10.6)
[2022-07-26] MEDS: SENNOSIDES 1 TAB TABLET PO (19:19)
[2022-07-27 07:00] VITALS: BP 107/63; PULSE 72; RESP 20; TEMP 36.5; O2SAT 95; BMI 20.9
[2022-07-27] MEDS: ALBUTEROL INHALER 2 PUFF IH ×4 (07:38→20:56)
[2022-07-27] MEDS: ASPIRIN 81 MG TABLET EC PO (07:38)
[2022-07-27] MEDS: ACETAMINOPHEN 500 MG TABLET 1000 MG PO ×3 (07:38→20:56)
[2022-07-27] MEDS: OMEPRAZOLE 20 MG CAPSULE DR PO (07:38)
[2022-07-27] MEDS: VENLAFAXINE ER 75 MG CAPSULE PO (07:39)
[2022-07-27] MEDS: METOPROLOL SUCCINATE (XL) 50 MG TAB 25 MG PO (07:39)
[2022-07-27] MEDS: FOLIC ACID 800 MCG PO (07:39)
[2022-07-27] MEDS: METFORMIN 1,000 MG TABLET 1000 MG PO ×2 (07:39→18:30)
[2022-07-27] MEDS: glipiZIDE 2.5 MG ER TAB 5 MG PO (07:39)
[2022-07-27] MEDS: FUROSEMIDE 40 MG TABLET 60 MG PO (07:39)
[2022-07-27] MEDS: VENLAFAXINE HCL ER 37.5 MG CAPSULE PO (07:40)
[2022-07-27] MEDS: NON-FORMULARY MEDICATION 1 EACH INH (07:40)
[2022-07-27] MEDS: CARBOXYMETHYLCELLULOSE (REFRESH PLUS) TEARS 1 DROP EYE-BOTH ×4 (07:40→20:56)
[2022-07-27] MEDS: POTASSIUM CHLORIDE 10 MEQ CAPSULE ER PO (07:40)
[2022-07-27] MEDS: SENNOSIDES 1 TAB TABLET PO (20:56)
--- NOTE | 2022-07-28 06:57 | PC.NURSE ---
UA, CBC, BMP results reviewed by Anselmo DWYER. No new orders. Resident status back to her baseline.
[2022-07-28] MEDS: glipiZIDE 2.5 MG ER TAB 5 MG PO (07:09)
[2022-07-28] MEDS: ALBUTEROL INHALER 2 PUFF IH ×4 (07:09→20:27)
[2022-07-28] MEDS: ACETAMINOPHEN 500 MG TABLET 1000 MG PO ×3 (07:09→20:27)
[2022-07-28] MEDS: NON-FORMULARY MEDICATION 1 EACH INH (07:09)
[2022-07-28] MEDS: OMEPRAZOLE 20 MG CAPSULE DR PO (07:09)
[2022-07-28] MEDS: VENLAFAXINE HCL ER 37.5 MG CAPSULE PO (07:09)
[2022-07-28] MEDS: CARBOXYMETHYLCELLULOSE (REFRESH PLUS) TEARS 1 DROP EYE-BOTH ×4 (07:09→20:27)
[2022-07-28] MEDS: ASPIRIN 81 MG TABLET EC PO (07:09)
[2022-07-28] MEDS: METOPROLOL SUCCINATE (XL) 50 MG TAB 25 MG PO (07:09)
[2022-07-28] MEDS: VENLAFAXINE ER 75 MG CAPSULE PO (07:09)
[2022-07-28] MEDS: NICOTINE 4 MG GUM BUCCAL ×2 (07:10→16:41)
[2022-07-28] MEDS: METFORMIN 1,000 MG TABLET 1000 MG PO ×2 (08:17→18:05)
[2022-07-28] MEDS: POTASSIUM CHLORIDE 10 MEQ CAPSULE ER PO (08:17)
[2022-07-28] MEDS: FUROSEMIDE 40 MG TABLET 60 MG PO (08:17)
[2022-07-28] MEDS: OXYCODONE 5 MG TABLET 7.5 MG PO (11:34)
[2022-07-28] MEDS: SENNOSIDES 1 TAB TABLET PO (20:27)
[2022-07-29] MEDS: OMEPRAZOLE 20 MG CAPSULE DR PO (06:51)
[2022-07-29] MEDS: ASPIRIN 81 MG TABLET EC PO (07:11)
[2022-07-29] MEDS: ACETAMINOPHEN 500 MG TABLET 1000 MG PO ×3 (07:11→19:20)
[2022-07-29] MEDS: ALBUTEROL INHALER 2 PUFF IH ×4 (07:11→19:20)
[2022-07-29] MEDS: VENLAFAXINE ER 75 MG CAPSULE PO (07:12)
[2022-07-29] MEDS: glipiZIDE 2.5 MG ER TAB 5 MG PO (07:12)
[2022-07-29] MEDS: CARBOXYMETHYLCELLULOSE (REFRESH PLUS) TEARS 1 DROP EYE-BOTH ×4 (07:12→19:20)
[2022-07-29] MEDS: POTASSIUM CHLORIDE 10 MEQ CAPSULE ER PO (07:12)
[2022-07-29] MEDS: NON-FORMULARY MEDICATION 1 EACH INH (07:12)
[2022-07-29] MEDS: FOLIC ACID 800 MCG PO (07:12)
[2022-07-29] MEDS: VENLAFAXINE HCL ER 37.5 MG CAPSULE PO (07:12)
[2022-07-29] MEDS: METOPROLOL SUCCINATE (XL) 50 MG TAB 25 MG PO (07:12)
[2022-07-29] MEDS: METFORMIN 1,000 MG TABLET 1000 MG PO ×2 (08:03→17:11)
[2022-07-29] MEDS: FUROSEMIDE 40 MG TABLET 60 MG PO (08:03)
[2022-07-29] MEDS: NICOTINE 4 MG GUM BUCCAL (16:35)
[2022-07-29] MEDS: SENNOSIDES 1 TAB TABLET PO (19:20)
[2022-07-30] MEDS: OMEPRAZOLE 20 MG CAPSULE DR PO (06:49)
[2022-07-30] MEDS: NICOTINE 4 MG GUM BUCCAL ×2 (07:05→16:49)
[2022-07-30] MEDS: glipiZIDE 2.5 MG ER TAB 5 MG PO (07:21)
[2022-07-30] MEDS: ACETAMINOPHEN 500 MG TABLET 1000 MG PO ×3 (07:21→19:32)
[2022-07-30] MEDS: METOPROLOL SUCCINATE (XL) 50 MG TAB 25 MG PO (07:21)
[2022-07-30] MEDS: ASPIRIN 81 MG TABLET EC PO (07:21)
[2022-07-30] MEDS: VENLAFAXINE ER 75 MG CAPSULE PO (07:21)
[2022-07-30] MEDS: ALBUTEROL INHALER 2 PUFF IH ×4 (07:21→19:32)
[2022-07-30] MEDS: VENLAFAXINE HCL ER 37.5 MG CAPSULE PO (07:22)
[2022-07-30] MEDS: FOLIC ACID 800 MCG PO (07:22)
[2022-07-30] MEDS: NON-FORMULARY MEDICATION 1 EACH INH (07:22)
[2022-07-30] MEDS: CARBOXYMETHYLCELLULOSE (REFRESH PLUS) TEARS 1 DROP EYE-BOTH ×4 (07:22→19:32)
[2022-07-30] MEDS: POTASSIUM CHLORIDE 10 MEQ CAPSULE ER PO (08:13)
[2022-07-30] MEDS: FUROSEMIDE 40 MG TABLET 60 MG PO (08:13)
[2022-07-30] MEDS: METFORMIN 1,000 MG TABLET 1000 MG PO ×2 (08:13→17:13)
[2022-07-30] MEDS: SENNOSIDES 1 TAB TABLET PO (19:32)
[2022-07-31] MEDS: OMEPRAZOLE 20 MG CAPSULE DR PO (06:35)
[2022-07-31] MEDS: ALBUTEROL INHALER 2 PUFF IH ×4 (07:06→19:17)
[2022-07-31] MEDS: VENLAFAXINE ER 75 MG CAPSULE PO (07:06)
[2022-07-31] MEDS: ACETAMINOPHEN 500 MG TABLET 1000 MG PO ×3 (07:06→19:17)
[2022-07-31] MEDS: ASPIRIN 81 MG TABLET EC PO (07:06)
[2022-07-31] MEDS: FOLIC ACID 800 MCG PO (07:07)
[2022-07-31] MEDS: VENLAFAXINE HCL ER 37.5 MG CAPSULE PO (07:07)
[2022-07-31] MEDS: NON-FORMULARY MEDICATION 1 EACH INH (07:07)
[2022-07-31] MEDS: glipiZIDE 2.5 MG ER TAB 5 MG PO (07:07)
[2022-07-31] MEDS: METOPROLOL SUCCINATE (XL) 50 MG TAB 25 MG PO (07:07)
[2022-07-31] MEDS: CARBOXYMETHYLCELLULOSE (REFRESH PLUS) TEARS 1 DROP EYE-BOTH ×4 (07:07→19:17)
[2022-07-31] MEDS: NICOTINE 4 MG GUM BUCCAL ×2 (07:19→21:33)
[2022-07-31] MEDS: POTASSIUM CHLORIDE 10 MEQ CAPSULE ER PO (08:36)
[2022-07-31] MEDS: FUROSEMIDE 40 MG TABLET 60 MG PO (08:36)
[2022-07-31] MEDS: METFORMIN 1,000 MG TABLET 1000 MG PO ×2 (08:36→17:29)
[2022-07-31] MEDS: SENNOSIDES 1 TAB TABLET PO (19:17)
[2022-08-01] MEDS: ASPIRIN 81 MG TABLET EC PO (07:30)
[2022-08-01] MEDS: ALBUTEROL INHALER 2 PUFF IH ×4 (07:30→20:57)
[2022-08-01] MEDS: ACETAMINOPHEN 500 MG TABLET 1000 MG PO ×3 (07:30→20:57)
[2022-08-01] MEDS: OMEPRAZOLE 20 MG CAPSULE DR PO (07:30)
[2022-08-01] MEDS: METOPROLOL SUCCINATE (XL) 50 MG TAB 25 MG PO (07:31)
[2022-08-01] MEDS: FOLIC ACID 800 MCG PO (07:31)
[2022-08-01] MEDS: VENLAFAXINE ER 75 MG CAPSULE PO (07:31)
[2022-08-01] MEDS: NICOTINE 4 MG GUM BUCCAL ×2 (07:32→17:32)
[2022-08-01] MEDS: CARBOXYMETHYLCELLULOSE (REFRESH PLUS) TEARS 1 DROP EYE-BOTH ×4 (07:32→20:57)
[2022-08-01] MEDS: VENLAFAXINE HCL ER 37.5 MG CAPSULE PO (07:32)
[2022-08-01] MEDS: NON-FORMULARY MEDICATION 1 EACH INH (07:32)
[2022-08-01] MEDS: METFORMIN 1,000 MG TABLET 1000 MG PO ×2 (08:35→17:32)
[2022-08-01] MEDS: FUROSEMIDE 40 MG TABLET 60 MG PO (08:35)
[2022-08-01] MEDS: POTASSIUM CHLORIDE 10 MEQ CAPSULE ER PO (08:35)
[2022-08-01] MEDS: glipiZIDE 2.5 MG ER TAB 5 MG PO (08:35)
[2022-08-01] MEDS: SENNOSIDES 1 TAB TABLET PO (20:57)
[2022-08-01] MEDS: MELATONIN 3 MG TABLET PO (21:01)
--- NOTE | 2022-08-02 01:07 | PC.NURSE ---
WEEKLY CHARTING WEEK 2 : MOBILITY Vital signs reviewed with no concerns. Comprehensive and temporary care plan reviewed with no changes made.? Resident is independent with all mobility, transfer, bed mobility and ambulation. Bilateral 1/4 side rails up on bed all the time for bed mobility. She Uses walker to transfer and ambulation. Res is a low fall risk. Intervention: Call light within reach, bed in low position with breaks lock, Keep area free of clutter.
[2022-08-02] MEDS: OMEPRAZOLE 20 MG CAPSULE DR PO (06:24)
[2022-08-02] MEDS: NICOTINE 4 MG GUM BUCCAL ×2 (06:27→17:24)
[2022-08-02] MEDS: METOPROLOL SUCCINATE (XL) 50 MG TAB 25 MG PO (07:03)
[2022-08-02] MEDS: CARBOXYMETHYLCELLULOSE (REFRESH PLUS) TEARS 1 DROP EYE-BOTH ×4 (07:03→19:47)
[2022-08-02] MEDS: VENLAFAXINE ER 75 MG CAPSULE PO (07:03)
[2022-08-02] MEDS: ACETAMINOPHEN 500 MG TABLET 1000 MG PO ×3 (07:03→19:47)
[2022-08-02] MEDS: ASPIRIN 81 MG TABLET EC PO (07:03)
[2022-08-02] MEDS: ALBUTEROL INHALER 2 PUFF IH ×4 (07:03→19:47)
[2022-08-02] MEDS: FOLIC ACID 800 MCG PO (07:03)
[2022-08-02] MEDS: NON-FORMULARY MEDICATION 1 EACH INH (07:03)
[2022-08-02] MEDS: VENLAFAXINE HCL ER 37.5 MG CAPSULE PO (07:03)
[2022-08-02] MEDS: FUROSEMIDE 40 MG TABLET 60 MG PO (08:29)
[2022-08-02] MEDS: METFORMIN 1,000 MG TABLET 1000 MG PO ×2 (08:29→17:24)
[2022-08-02] MEDS: glipiZIDE 2.5 MG ER TAB 5 MG PO (08:29)
[2022-08-02] MEDS: POTASSIUM CHLORIDE 10 MEQ CAPSULE ER PO (08:30)
[2022-08-02] MEDS: OXYCODONE 5 MG TABLET 7.5 MG PO (09:11)
--- NOTE | 2022-08-02 10:00 | PC.NURSE ---
Weekly Charting, Week 2- Mobility: Comprehensive and temporary care plan reviewed.? No changes made. Nothing added to temporary care plan. Resident is independent with transfers, ambulation, and bed/chair mobility. Ambulates with a 4ww.? Bilateral 1/4 side rails up to aid for positioning/bed mobility & comfort per her request. Vital signs reviewed, no concerns. Continue weekly monitoring and refer to provider as needed. Fall: Had a fall on 07/05 knees buckle, bring herself down to the floor, no injury. Remains a low fall risk according to assessment done on 05/30/22. Fall interventions: call light within reach, bed in low position with brakes locked, keep area free of clutters, encourage to call for assist as needed.
[2022-08-02] MEDS: SENNOSIDES 1 TAB TABLET PO (19:47)
[2022-08-02] MEDS: MELATONIN 3 MG TABLET PO (19:49)
[2022-08-03] MEDS: ALBUTEROL INHALER 2 PUFF IH (00:48)
[2022-08-03] MEDS: OXYCODONE 5 MG TABLET 7.5 MG PO (01:01)
--- NOTE | 2022-08-03 02:27 | PC.NURSE ---
Emergency Health Status 1248 resident put call light on after attempting to walk to restroom. Nursing went in to resident's room and found patient experiencing shortness of breath, restlessness, sweating, pallor noted and complaining of nausea. Vitals: BP 102/59 P 133 BPM T 95.7 RR 35 O2 76% on 2L of oxygen. Resident used PRN albuterol but intervention was not effective, nursing tried to have resident do pursed lip breathing but resident's O2 sat did not improve. Nursing asked resident if they would like to go to the ER and resident said yes. Nursing called primary contact, Ramiro Elkins who gave consent to sending to ED. Called [employer] administrative operations coordinator to update provider, Tanya Koehler. Recieved telephone order to send to ED. Around 0123, dope dry house operator Sobia Arnold picked up resident to take to ED on a stretcher.
--- NOTE | 2022-08-03 13:01 | PC.SOCIAL ---
Per Vel at [employer] (resident's rep payee) the abebe vizcaino funds should be returned to [employer] at [address] [place]. [address]. The gift cards can be released to family. Phone call to resident's son (Primary contact) Cory Elkins. Cory will be at [facility] tomorrow at around 10:30 am. This worker will provide gift cards to Cory. Provided update to Nursing. Social work will follow up as necessary.
== END | disposition expired | DRG 380 ==
LOC: NLTCC 08-22 13:55 → LTCBEDHOLD 08-31 14:38 → NLTCC 09-07 14:21
PROVIDERS: Family Medicine; Admitting Provider Family Medicine; Family Provider Nurse Practitioner Gerontology; Visit Provider Family Medicine
DX: E11.621 Type 2 diabetes mellitus with foot ulcer (principal); L97.512 Non-pressure chronic ulcer of other part of right foot with fat layer exposed; M20.41 Other hammer toe(s) (acquired), right foot; R21 Rash and other nonspecific skin eruption; J44.9 Chronic obstructive pulmonary disease, unspecified; I50.30 Unspecified diastolic (congestive) heart failure; H04.123 Dry eye syndrome of bilateral lacrimal glands; E11.9 Type 2 diabetes mellitus without complications; M06.9 Rheumatoid arthritis, unspecified; K21.9 Gastro-esophageal reflux disease without esophagitis; K59.00 Constipation, unspecified; I73.9 Peripheral vascular disease, unspecified; I10 Essential (primary) hypertension; E87.6 Hypokalemia; F33.9 Major depressive disorder, recurrent, unspecified; R19.7 Diarrhea, unspecified; K21.00 Gastro-esophageal reflux disease with esophagitis, without bleeding; F17.200 Nicotine dependence, unspecified, uncomplicated; J44.1 Chronic obstructive pulmonary disease with (acute) exacerbation
CPT/HCPCS: 36415; 71045; 73130; 80048; 80061; 81001; 83036; 83735; 85025; 87502; 87631; 87634; 87635; 87798; 87804; 90471; 90662; 92610; 97110; 97116; 97161; A9153; A9270; J8610